=== PATIENT | male | born 1955 | race Caucasian/White ===

== ENCOUNTER 2016-12-09 08:49 | Outpatient (RCR) | payer MEDICARE, MEDICAID ==
--- OUTSIDE RECORDS SUMMARY | 2016-11-25 10:05 | XMS REPORT | Continuity of Care Document ---
Author Author [facility] Organization [facility] Address Unknown Phone Unavailable Care Team Providers Care Newspaper Illustrator Name Role Phone Self, Referral PCP Unavailable Source Comments Some departments are not documenting in the electronic medical record. If you do not see the information that you expected, contact Release of Information in the Health Information Management department at [phone] for further assistance in locating additional records.[facility] Active Allergies and Adverse Reactions No Known Allergies Current Medications Prescription Sig. Disp. Refills Start End Date Status Date divalproex (DEPAKOTE) 500 take 500 mg by mouth 10/04/20 Active mg PO TbEC Daily. 07 risperidone (RISPERDAL) 2 take 2 mg by mouth Twice 10/04/20 Active mg PO Tab Daily. 0.5 mg in the 07 morning and 2 mg at night trazodone (DESYREL) 100 take 200 mg by mouth 10/04/20 Active mg PO Tab Daily. 07 venlafaxine XR (EFFEXOR take 150 mg by mouth 10/04/20 Active XR) 150 mg PO Cp24 Daily. 07 metformin (GLUCOPHAGE) take 500 mg by mouth 10/04/20 Active 500 mg PO Tab Daily. 07 gemfibrozil (LOPID) 600 take 600 mg by mouth 10/04/20 Active mg PO Tab Twice Daily. 07 atorvastatin (LIPITOR) 20 take 20 mg by mouth 10/04/20 Active mg PO Tab Daily. 07 enalapril (VASOTEC) 5 mg take 5 mg by mouth Daily. 10/04/20 Active PO Tab 07 trihexyphenidyl (ARTANE) take 5 mg by mouth RT 10/04/20 Active 5 mg PO Tab Three Times Daily 07 meloxicam(+) (MOBIC) 7.5 take 7.5 mg by mouth 10/04/20 Active mg PO Tab Twice Daily. 07 oxcarbazepine (TRILEPTAL) take 300 mg by mouth 10/04/20 Active 300 mg PO Tab Daily. 07 oxycodone/acetaminophen take 1-2 Tabs by mouth 30 0 10/06/20 Active (PERCOCET) 5/325 mg PO Every 4 Hours as needed 07 Tab for Pain. senna/docusate take 2 Tabs by mouth 60 1 10/06/20 Active (SENOKOT-S) 8.6/50 mg PO Daily. 07 Tab trimethoprim/sulfamethoxa take 1 Tab by mouth Twice 6 0 10/06/20 Active zole (BACTRIM DS) 160/800 Daily. 07 mg PO Tab Active Problems Problem Noted Date Calculus of kidney 10/25/2007 Nephrolithiasis 10/06/2007 Social History Tobacco Use Types Packs/Day Years Used Date Former Smoker 1 Alcohol Use Drinks/Week oz/Week Comments No Last Filed Vital Signs Vital Sign Reading Time Taken Blood Pressure 111/67 10/06/2007 9:56 AM DIRECTOR OF DESIGN Pulse 65 10/06/2007 9:56 AM DIRECTOR OF DESIGN Temperature 36.9 C (98.4 F) 10/06/2007 9:56 AM DIRECTOR OF DESIGN Respiratory Rate - - Height 1.676 m (5' 6") 10/04/2007 7:48 AM DIRECTOR OF DESIGN Weight 82.555 kg (182 lb) 10/04/2007 7:48 AM DIRECTOR OF DESIGN Body Mass Index 29.39 10/04/2007 7:48 AM DIRECTOR OF DESIGN Oxygen Saturation 96% 10/06/2007 9:56 AM DIRECTOR OF DESIGN Plan of Care Health Maintenance Due Date Last Done Comments Hepatitis C Screening 1955 Physical (Comprehensive) 1961 Exam Pertussis Vaccine 1965 Tetanus Vaccine 1971 Colorectal Cancer 2004 Screening Shingles Vaccine 2014 Influenza Vaccine 07/22/2016 Results from Last 3 Months Not on file
[~2016-12-09 08:49] MED LIST: ASP325TEC PO; BUSP30TA2 PO; CARV6.252 PO; CHOL4PAC19 GT; DIVA500T PO; DIVA500T15 PO; DOXE25CA2 PO; GABA-488 PO; LISI-552 PO; LISI10TA2 PO; LORA10TA7 PO; MELO7.5T46 PO; METF1000 PO; NFMET1000 PO; RISP4TAB2 PO; RISP4TAB34 PO; SERT100T8 PO; SILD25TA PO; SIMV40TA PO; SIMV40TA4 PO; TIZA4TAB3 PO; TRAZ-28 PO
== END 2016-12-16 10:01 | disposition home or self-care (01) ==
PROVIDERS: ATTEND Pain Medicine Pain Medicine
DX: M54.2 Cervicalgia (principal)

== ENCOUNTER 2016-12-10 10:58 | Outpatient (CLI) | payer MEDICARE, MEDICAID ==
[~2016-12-10] VITALS: Ht 167.6 cm; Wt 79.8 kg
[2016-12-10] MEDS ORDERED: DEXAMETHASONE PF 10 MG/ML (DECADRON) VIAL ONE (11:01)
--- OUTSIDE RECORDS SUMMARY | 2016-12-10 11:01 | XMS REPORT | Continuity of Care Document ---
Author Author [facility] Organization [facility] Address Unknown Phone Unavailable Care Team Providers Care Insole Reinforcer Name Role Phone Self, Referral PCP Unavailable Source Comments Some departments are not documenting in the electronic medical record. If you do not see the information that you expected, contact Release of Information in the Health Information Management department at [phone] for further assistance in locating additional records.[facility] Active Allergies and Adverse Reactions No [...] Taken Blood Pressure 111/67 10/06/2007 9:56 AM BICYCLE DESIGNER Pulse 65 10/06/2007 9:56 AM BICYCLE DESIGNER Temperature 36.9 C (98.4 F) 10/06/2007 9:56 AM BICYCLE DESIGNER Respiratory Rate - - Height 1.676 m (5' 6") 10/04/2007 7:48 AM BICYCLE DESIGNER Weight 82.555 kg (182 lb) 10/04/2007 7:48 AM BICYCLE DESIGNER Body Mass Index 29.39 10/04/2007 7:48 AM BICYCLE DESIGNER Oxygen Saturation 96% 10/06/2007 9:56 AM BICYCLE DESIGNER Plan of Care Health Maintenance Due Date Last Done Comments Hepatitis C Screening 1955 Physical (Comprehensive) 1961 Exam Pertussis Vaccine 1965 Tetanus Vaccine 1971 Colorectal Cancer 2004 Screening Shingles Vaccine 2014 Influenza Vaccine 07/22/2016 Results from Last 3 Months Not on file
[2016-12-10 11:16] VITALS: BP 171/77
[2016-12-10 11:37] VITALS: BP 179/73
--- NOTE | 2016-12-10 14:01 | Pain Medicine-Procedure ---
Procedure Pre-Op/Post-Op Diagnosis Diagnosis: disc disorder with radiculopathy, cervical Indications for Operation Neck pain Attending Surgeon Abilio Procedure Date of Service: Dec 10, 2016 Procedure: Cervical Epidural Steroid Injection at the C7-T1 Level under Fluoroscopic Guidance Procedure: Pt was identified in the holding area. After risks, benefits, and alternatives were discussed with the patient, informed consent was obtained. An IV was placed by nursing staff prior to procedure. Patient was brought to the fluoroscopy suite and placed prone on the operating table. A time out was performed. Vital signs were monitored throughout the procedure. The patients neck was prepped and draped in the usual sterile fashion. The patients skin was anesthetized using 1% Lidocaine. A 18 gauge tuohy needle was inserted and advanced to the C7-T1 epidural space under fluoroscopic guidance using the loss of resistance technique. The needle position was confirmed in the AP and lateral view. After negative aspiration 2 ml of non-ionic contrast was injected under live fluoroscopy which showed good spread of the contrast in the epidural space at the appropriate level, there was no intravascular or subarachnoid spread. Again, after negative aspiration, 3 ml of preservative free normal saline and 10 mg of dexamethasone was injected. The needle was removed and the patient was transferred to the recovery area in stable condition. And after a brief period of observation was discharged to home in stable condition with no new neurologic deficits. Complications None ANGEL STYLES MD Dec 10, 2016 2:01 pm
== END 2016-12-10 11:41 | disposition home or self-care (01) ==
LOC: CARD 10:58
PROVIDERS: ATTEND Pain Medicine Pain Medicine
DX: M50.13 Cervical disc disorder with radiculopathy, cervicothoracic region (principal); Z79.899 Other long term (current) drug therapy; E11.9 Type 2 diabetes mellitus without complications
CPT/HCPCS: 62321; 82962

== ENCOUNTER → 2017-06-02 | Outpatient (CLI) | payer MEDICARE, MEDICAID | LOC: PREOP 06:51 | PROVIDERS: ATTEND Surgery | DX: Z01.818 Encounter for other preprocedural examination (principal); R19.7 Diarrhea, unspecified ==

== ENCOUNTER → 2017-07-08 | Outpatient (CLI) | payer MEDICARE, MEDICAID | LOC: PREOP 05:53 | PROVIDERS: ATTEND Surgery | DX: Z01.818 Encounter for other preprocedural examination (principal); R19.7 Diarrhea, unspecified ==

== ENCOUNTER 2017-07-12 09:33 | Day surgery (SDC) | payer MEDICARE, MEDICAID ==
[~2017-07-12] VITALS: Ht 167.6 cm; Wt 79.8 kg
[2017-07-12 10:09] VITALS: BP 143/76
[2017-07-12] MEDS ORDERED: LACTATED RINGERS 1,000 ML IV SCH (10:15)
[2017-07-12] MEDS ORDERED: LACTATED RINGERS 1,000 ML IV ONE (10:41)
[2017-07-12] MEDS ORDERED: MIDAZOLAM 2 MG/2 ML (VERSED) VIAL ONE (11:10)
[2017-07-12] MEDS ORDERED: PROPOFOL INJECTION 50 ML IV ONE (11:10)
--- NOTE | 2017-07-12 12:00 | Discharge Inst-Simple/Standard ---
Discharge Inst-Standard Patient Instructions/Follow Up Plan of Care/Instructions/FU: 2 weeks nathan Activity as Tolerated: Yes Discharge Diet: Regular Diet AISHWARYA LE DO Jul 12, 2017 12:00
--- NOTE | 2017-07-12 12:01 | Progress Note-Post Operative ---
Post-Operative Progess Note Surgeon (s)/Potato Chip Frier (s) Surgeon AISHWARYA LE DO Potato Chip Frier: na Pre-Operative Diagnosis chronic diarrhea Post-Operative Diagnosis poor prep Procedure & Operative Findings Date of Procedure 07/12/17 Procedure Performed/Findings colonoscopy c random cold biopsies Anesthesia Type per business management consultant Estimated Blood Loss Estimated blood loss (mL): none Specimens/Packing Specimens Removed random colon AISHWARYA LE DO Jul 12, 2017 12:01
--- OUTSIDE RECORDS SUMMARY | 2017-07-12 12:18 | XMS REPORT ---
Author ROSA M Jimenez [facility] [employer]Clinical[employer] Address Unknown Phone Unavailable Care Team Providers Care Typewriter Aligner Name Role Phone ROSA M PAREKH Unavailable Allergies No Known Allergies Problems Problem Type Condition Code Onset Dates Condition Status Problem Insomnia 780.52 Active Assessment Neck pain M54.2 Active Problem HTN (hypertension) I10 Active Problem Hypercholesterolemia E78.0 Active Problem Type 2 diabetes mellitus with other specified complication E11.69 Active Problem Pre-ulcerative calluses L84 Active Problem CAD (coronary artery disease) 414.00 Active Problem Anxiety F41.9 Active Problem Depression F32.9 Active Medications No Known Medications Results No Known Results Summary Purpose eClinicalWorks Submission
--- OUTSIDE RECORDS SUMMARY | 2017-07-12 12:18 | XMS REPORT | Clinical Summary ---
Author Author [facility] Organization [facility] Address Unknown Phone Unavailable Care Team Providers Care Stone Sawyer Name Role Phone PCP Unavailable Source Comments Some departments are not documenting in the electronic medical record. If you do not see the information that you expected, contact Release of Information in the Health Information Management department at [phone] for further assistance in locating additional records.[facility] Allergies No Known Allergies Current Medications Prescription Sig. [...] 1 Alcohol Use Drinks/Week oz/Week Comments No Sex Assigned at Date Recorded Not on file Last Filed Vital Signs Vital Sign Reading Time Taken Blood Pressure 111/67 10/06/2007 9:56 AM TECHNICAL TRANSLATOR Pulse 65 10/06/2007 9:56 AM TECHNICAL TRANSLATOR Temperature 36.9 C (98.4 F) 10/06/2007 9:56 AM TECHNICAL TRANSLATOR Respiratory Rate - - Oxygen Saturation 96% 10/06/2007 9:56 AM TECHNICAL TRANSLATOR Inhaled Oxygen - - Concentration Weight 82.6 kg (182 lb) 10/04/2007 7:48 AM TECHNICAL TRANSLATOR Height 167.6 cm (5' 6") 10/04/2007 7:48 AM TECHNICAL TRANSLATOR Body Mass Index 29.38 10/04/2007 7:48 AM TECHNICAL TRANSLATOR Plan of Treatment Health Maintenance Due Date Last Done Comments HEPATITIS C SCREENING 1954 PHYSICAL (COMPREHENSIVE) 1961 EXAM PERTUSSIS VACCINE 1965 TETANUS VACCINE 1971 COLORECTAL CANCER 2004 SCREENING SHINGLES VACCINE 2014 INFLUENZA VACCINE 07/22/2017 Results Not on filefrom Last 3 Months
--- OUTSIDE RECORDS SUMMARY | 2017-07-12 12:18 | XMS REPORT ---
Author NILAM Mohamud [facility] [employer] Address Unknown Phone Unavailable Care Team Providers Care Investigations Manager Name Role Phone NILAM MCDONALD CP Unavailable Allergies No Known Allergies Problems Problem Type Condition Code Onset Dates Condition Status Problem Insomnia 780.52 Active Problem HTN (hypertension) I10 Active Problem Hypercholesterolemia E78.0 Active Problem Type 2 diabetes mellitus with other specified complication E11.69 Active Problem Pre-ulcerative calluses L84 Active Problem CAD (coronary artery disease) 414.00 Active Problem Anxiety F41.9 Active Problem Depression F32.9 Active Medications No Known Medications Results No Known Results Summary Purpose eClinicalWorks Submission
--- OUTSIDE RECORDS SUMMARY | 2017-07-12 12:18 | XMS REPORT ---
Author ROSA M Jimenez [facility] eClinical[employer] Address Unknown Phone Unavailable Care Team Providers Care Brass Molder Name Role Phone ROSA M PAREKH CP Unavailable Allergies No Known Allergies Problems [...] Depression F32.9 Active Medications No Known Medications Procedures Procedure Coding System Code Date THERAPEUTIC EXERCISES CPT-4 31836 February 18, 2016 PT EVALUATION CPT-4 60330 February 18, 2016 Results No Known Results Summary Purpose eClinicalWorks Submission
--- OUTSIDE RECORDS SUMMARY | 2017-07-12 12:18 | XMS REPORT ---
Author Author NILAM MCDONALD Organization [employer] Address Unknown Phone Unavailable Care Team Providers Care Gun Stock Checker Name Role Phone NILAM MCDONALD CP Unavailable [...] F41.9 Active Problem Depression F32.9 Active Medications Medication Code System Code Instructions Start Date End Date Status Dosage Lisinopril [facility] [address]-78 20 mg Orally Once a day TAKE 1 TABLET BY MOUTH DAILY Results No Known Results Summary Purpose eClinicalWorks Submission
--- OUTSIDE RECORDS SUMMARY | 2017-07-12 12:18 | XMS REPORT ---
Author NILAM Mohamud [facility] eClinical[employer] Address Unknown Phone Unavailable Care Team Providers Care Personal Financial Representative Name Role Phone NILAM MCDONALD CP Unavailable [...] Start Date End Date Status Dosage Lisinopril [facility] 30689028459 20 MG TAKE 1 TABLET BY MOUTH DAILY Results No Known Results Summary Purpose eClinicalWorks Submission
--- OUTSIDE RECORDS SUMMARY | 2017-07-12 12:18 | XMS REPORT ---
Author NILAM Mohamud Organization [employer] Address Unknown Phone Unavailable Care Team Providers Care Pulp Mill Team Leader Name Role Phone NILAM MCDONALD CP Unavailable [...] Instructions Start Date End Date Status Dosage Baclofen [facility] [address]-48 10 MG Orally Three times a day prn Dec 17, 2015 Jan 16, 2016 1 tablet with food or milk Results No Known Results Summary Purpose eClinicalWorks Submission
--- OUTSIDE RECORDS SUMMARY | 2017-07-12 12:18 | XMS REPORT ---
Author Author NIKITA GROVER [facility] eClinicalWorks Address Unknown Phone Unavailable Care Team Providers Care Asphalt Paving Machine Operator Name Role Phone NIKITA GROVER CP Unavailable Allergies, Adverse Reactions, Alerts Substance Reaction Event Type N.K.D.A. Info Not Available Non Drug Allergy Problems Problem Type Condition Code Onset Dates Condition Status Problem Dermatophytosis of nail 110.1 Active Problem Malignant neoplasm of male genital organ, site unspecified 187.9 Active Problem Corns and callosities 700 Active Problem Insomnia 780.52 Active Assessment Allergic rhinitis, seasonal J30.2 Active Problem Diarrhea 787.91 Active Problem CAD (coronary artery disease) 414.00 Active Problem Diabetes mellitus without mention of complication, type II or unspecified type, not stated as uncontrolled 250.00 Active Problem Nondependent tobacco use disorder 305.1 Active Problem Abnormal involuntary movements 781.0 Active Problem Essential hypertension, benign 401.1 Active Problem Pain in joint, ankle and foot 719.47 Active Problem 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 Problem Encounter for long-term (current) use of other medications V58.69 Active Problem Unspecified follow-up examination V67.9 Active Problem Unspecified essential hypertension 401.9 Active Problem Secondary localized osteoarthrosis, 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 Active Problem Other specified cardiac dysrhythmias 427.89 Active Problem Neoplasm of unspecified nature of other genitourinary organs 239.5 Active Problem Other dyspnea and respiratory abnormalities 786.09 Active Problem Unspecified hereditary and idiopathic peripheral neuropathy 356.9 Active Medications Medication Code System Code Instructions Start Date End Date Status Dosage Blood Glucose Monitor NDC 0 Dx 250.00 Aug 19, 2015 not defined Aspirin [facility] [address]-85 325 MG Orally Once a day Sep 11, 2014 Nov 06, 2015 take 1 tablet (325 mg) by oral route once daily buspirone NDC 0 30 mg Sep 11, 2014 take 1 tablet (30 mg) by oral route 2 times per day Trazodone HCl [facility] [address]-11 50 MG Orally Once a day at hs Aug 08, 2015 1 tablet at bedtime as needed Depakote [facility] [address]-60 500 MG Orally 3 times a day Sep 11, 2014 1 tablet Zocor [facility] [address]-50 40 MG Orally Once a day Aug 19, 2015 1 tablet in the evening Coreg [facility] [address]-58 6.25 MG no more refills given-must have appt. January 20, 2015 take 1 tablet (6.25 mg) by oral route 2 times per day with food Zocor [facility] [address]-11 40 MG must keep appt for additional refills Nov take 1 tablet (40 mg) by oral route once daily in the evening Ibuprofen [facility] [address]-12 400 mg January 21, 2015 take 1 tablet ( 400 mg) by oral route every 4 hours as needed for pain Blood Glucose Test Strip [facility] 0 2 times per day Aug 19, 2015 not defined Risperdal [facility] [address]-31 4 MG Orally Once a day January 30, 2013 take 1 tablet by Oral route 1 time per day Lomotil [facility] [address]-27 2.5-0.025 mg Oct 23, 2014 2 tablet by Oral route 3 times per day PRN Glucophage [facility] [address]-78 1,000 mg must keep appt for futher refills January 20, 2015 take 1 tablet (1,000 mg) by oral route 2 times per day with morning and evening meals Lisinopril [facility] [address]-04 20 MG Orally Once a day Aug 19, 2015 1 tablet Carvedilol [facility] [address]-14 6.25 MG Orally twice Aug 19, 2015 1 tablet Claritin [facility] [address]-48 10 MG Orally Once a day Sep 17, 2015 1 tablet Procedures Procedure Coding System Code Date [facility] VISIT ESTABLISHED PATIENT CPT-4 G0467 Sep 17, 2015 Office Visit, Est Pt., Level 3 CPT-4 18197 Sep 17, 2015 AUDIOMETRY-SCREEN CPT-4 61781 Sep 17, 2015 Vital Signs Date/Time: Sep 17, 2015 Temperature 97.2 F Weight 175.4 lbs Height 66 in Hearing Right ear: 1000:F, 2000:F, 4000:F, 6000:F, Left ear: 1000:F, 2000:F, 4000:F, 6000:F P / L Blood Pressure Diastolic 70 mmHg Blood Pressure Systolic 128 mmHg Cardiac Monitoring Heart Rate 74 bpm BMI 28.31 Index Results No Known Results Summary Purpose eClinicalWorks Submission
--- OUTSIDE RECORDS SUMMARY | 2017-07-12 12:18 | XMS REPORT ---
Author NILAM Mohamud [facility] eClinicalWorks Address Unknown Phone Unavailable Care Team Providers Care Supervisor Machining Name Role Phone NILAM MCDONALD CP Unavailable Allergies, Adverse Reactions, Alerts Substance Reaction Event Type N.K.D.A. Info Not Available Non Drug Allergy Problems Problem Type Condition Code Onset Dates Condition Status Assessment Pre-ulcerative calluses L84 Active Problem Insomnia 780.52 Active Assessment Type 2 diabetes mellitus with other specified complication E11.69 Active Problem HTN (hypertension) I10 Active Problem Hypercholesterolemia E78.0 Active Problem Type 2 diabetes mellitus with other specified complication E11.69 Active Problem Pre-ulcerative calluses L84 Active Problem CAD (coronary artery disease) 414.00 Active Problem Anxiety F41.9 Active Problem Depression F32.9 Active Assessment Depression F32.9 Active Assessment Anxiety F41.9 Active Assessment Osteoarthritis M19.90 Active Assessment Hypercholesterolemia E78.0 Active Assessment Environmental allergies Z91.09 Active Assessment HTN (hypertension) I10 Active Medications Medication Code System Code Instructions Start Date End Date Status Dosage Zocor [facility] 92623099178 40 MG Orally Once a day 1 tablet in the evening Lomotil [facility] [address]-44 2.5-0.025 mg Oct 23, 2014 2 tablet by Oral route 3 times per day PRN Carvedilol [facility] 13396358697 6.25 MG TAKE ONE TABLET BY MOUTH TWICE DAILY Depakote [facility] [address]-54 500 MG Orally 3 times a day Sep 11, 2014 1 tablet Cyclobenzaprine HCl [facility] [address]-51 10 MG Orally 2 times a day Nov 25, 2015 1 tablet Zoloft NDC 0 100 mg Oral Once a day 1 tab Ibuprofen [facility] [address]-87 400 mg January 21, 2015 take 1 tablet ( 400 mg) by oral route every 4 hours as needed for pain buspirone [place] 0 30 mg Sep 11, 2014 take 1 tablet (30 mg) by oral route 2 times per day Risperdal [facility] [address]-14 4 MG Orally Once a day January 30, 2013 take 1 tablet by Oral route 1 time per day Lisinopril [facility] 20433842102 20 MG Orally Once a day 1 tablet Glucophage [facility] 07043072526 1000 MG Orally Twice a day 1 tablet with meals Claritin [facility] [address]-50 10 MG Orally Once a day Sep 17, 2015 1 tablet Aspirin [facility] 37128139732 325 MG take 1 tablet (325 mg) by oral route once daily Once a day Orally 30 days Procedures Procedure Coding System Code Date [facility] VISIT ESTABLISHED PATIENT CPT-4 G0467 Nov 25, 2015 Office Visit, Est Pt., Level 4 CPT-4 52758 Nov 25, 2015 GLYCATED HEMOGLOBIN TEST CPT-4 60028 Nov 25, 2015 Vital Signs Date/Time: Nov 25, 2015 Temperature 98.2 F Weight 175.5 lbs Height 66 in BMI 28.32 Index Blood Pressure Diastolic 80 mmHg Blood Pressure Systolic 140 mmHg Cardiac Monitoring Heart Rate 78 bpm Results Name Result Date Reference Range Unit Abnormality Flag A1C (IN HOUSE) ----A1C IN HOUSE 5.6 [id number] 4.30 - 5.6 % ----Previous A1c 5.9 [id number] ----Lot # [id number] ----Exp date [id number] Summary Purpose eClinicalWorks Submission
--- OUTSIDE RECORDS SUMMARY | 2017-07-12 12:19 | XMS REPORT ---
Author Author NILAM MCDONALD [facility] eClinicalWorks Address Unknown Phone Unavailable Care Team Providers Care Cloth Napping Supervisor Name Role Phone NILAM MCDONALD CP Unavailable [...]
--- OUTSIDE RECORDS SUMMARY | 2017-07-12 12:19 | XMS REPORT ---
Author ROSA M Jimenez [facility] eClinicalWorks Address Unknown Phone Unavailable Care Team Providers Care Solar Installer Pv Name Role Phone ROSA M PAREKH Unavailable [...] Coding System Code Date THERAPEUTIC EXERCISES CPT-4 36405 March 08, 2016 Results No Known Results Summary Purpose eClinicalWorks Submission
--- OUTSIDE RECORDS SUMMARY | 2017-07-12 12:19 | XMS REPORT ---
Author NILAM Mohamud [facility] eClinicalWorks Address Unknown Phone Unavailable Care Team Providers Care Night Clerk Auditor Name Role Phone NILAM MCDONALD CP Unavailable [...]
--- OUTSIDE RECORDS SUMMARY | 2017-07-12 12:19 | XMS REPORT ---
Author Author NILAM MCDONALD Organization [facility] Address [address] [place] [address] Care Team Providers Care Assistant Commissioner Name Role Phone NILAM MCDONALD Unavailable PROBLEMS Type Condition ICD9-CM Code [id number] Code Onset Dates Condition Status SNOMED Code Problem Anxiety F41.9 Active 59204985 Problem Type 2 diabetes mellitus with other specified complication E11.69 Active 9637594 Problem HTN (hypertension) I10 Active 26337741 Problem Pure hypercholesterolemia E78.00 Active 231147465 Problem Pre-ulcerative calluses L84 Active 23212541 Problem Depression F32.9 Active 81786153 Problem Parkinsons disease G20 Active 03587505 Problem Cervical stenosis of spine M48.02 Active 95566273 Problem Cervicalgia M54.2 Active 576719356769597 Problem Other chronic pain G89.29 Active 96884294 Problem Atherosclerotic heart disease of [place] coronary artery without angina pectoris I25.10 Active 409341769 Problem Coronary atherosclerosis due to lipid rich plaque I25.83 Active 264168867360950 ALLERGIES Unknown Allergies SOCIAL HISTORY No smoking Hx information available PLAN OF CARE VITAL SIGNS MEDICATIONS Unknown Medications RESULTS No Results PROCEDURES No Known procedures IMMUNIZATIONS No Known Immunizations
--- OUTSIDE RECORDS SUMMARY | 2017-07-12 12:19 | XMS REPORT ---
Author Author NILAM MCDONALD [facility] Address [address] [place] [address] Care Team Providers Care Manager Talent Name Role Phone NILAM MCDONALD Unavailable PROBLEMS Type Condition ICD9-CM Code EAN83-NC Code Onset Dates Condition Status SNOMED Code Assessment Visit for TB skin test Z11.1 Jul, Active 329453915 Problem CAD (coronary artery disease) 414.00 Active 54387877 Problem Insomnia 780.52 Active 564064669 Assessment Screening for tuberculosis Z11.1 Jul, Active 636331215 Problem Type 2 diabetes mellitus with other specified complication E11.69 Active 8299974 Problem HTN (hypertension) I10 Active 24022838 Problem Depression F32.9 Active 43651046 Problem Pre-ulcerative calluses L84 Active 18585992 Problem Hypercholesterolemia E78.0 Active 64792131 Problem Anxiety F41.9 Active 84230397 ALLERGIES Unknown Allergies SOCIAL HISTORY No smoking Hx information available PLAN OF CARE VITAL SIGNS MEDICATIONS Unknown Medications RESULTS No Results PROCEDURES Procedure Date Ordered Related Diagnosis Body Site TB INTRADERMAL 2016-08-16 N/A TB INTRADERMAL TEST Aug 16, 2016 IMMUNIZATIONS No Known Immunizations
--- OUTSIDE RECORDS SUMMARY | 2017-07-12 12:19 | XMS REPORT ---
Author Author NILAM MCDONALD Organization [employer] Address Unknown Phone Unavailable Care Team Providers Care Harbor Engineer Name Role Phone NILAM MCDONALD CP Unavailable Allergies No Known Allergies Problems Problem Type Condition Code Onset Dates Condition Status Problem Dermatophytosis of nail 110.1 Active Problem Malignant neoplasm of male genital organ, site unspecified 187.9 Active Problem Corns and callosities 700 Active Problem Insomnia 780.52 Active Problem Diarrhea 787.91 Active Problem CAD [...] and idiopathic peripheral neuropathy 356.9 Active Medications No Known Medications Results No Known Results Summary Purpose [employer] Submission
--- OUTSIDE RECORDS SUMMARY | 2017-07-12 12:19 | XMS REPORT ---
Author Author RODOLFO SAHNI [facility] [employer] Address Unknown Phone Unavailable Care Team Providers Care Patient Services Clerk Name Role Phone RODOLFO SAHNI CP Unavailable Allergies No Known Allergies Problems Problem Type Condition ICD-9 Code Onset Dates Condition Status Problem Neoplasm of unspecified nature of other genitourinary organs 239.5 Active Problem Dermatophytosis of nail 110.1 Active Problem Unspecified hereditary and idiopathic peripheral neuropathy 356.9 Active Problem Abnormal involuntary movements 781.0 Active Problem Essential hypertension, benign 401.1 Active Problem Diarrhea 787.91 Active Problem Malignant neoplasm of male genital organ, site unspecified 187.9 Active Problem Corns and callosities 700 Active Problem Diabetes mellitus without mention of complication, type II or unspecified type, not stated as uncontrolled 250.00 Active Problem Nondependent tobacco use disorder 305.1 Active Problem Encounter for long-term (current) use of other medications V58.69 Active Problem Unspecified follow-up examination V67.9 Active Problem Other specified cardiac dysrhythmias 427.89 Active Problem Other dyspnea and respiratory abnormalities 786.09 Active Problem Pain in joint, ankle and foot 719.47 Active Problem Unspecified essential hypertension 401.9 Active Problem 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 Problem Secondary localized osteoarthrosis, 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 Active Medications Medication Code System Code Instructions Start Date End Date Status Dosage Lomotil [facility] [address]-63 2.5-0.025 mg Oct 23, 2014 2 tablet by Oral route 3 times per day PRN doxepin [facility] 0 25 mg Sep 11, 2014 take 2 capsules (50 mg) by oral route once daily at bedtime Viagra [facility] [address]-28 25 mg Oct 15, 2014 1 tablet by Oral route 1 time per day Zocor [facility] [address]-20 40 MG must keep appt for additional refills Nov take 1 tablet (40 mg) by oral route once daily in the evening Risperdal [facility] [address]-03 4 mg January 30, 2013 take 1 tablet by Oral route 1 time per day Coreg [facility] [address]-00 6.25 MG no more refills given-must have appt. January 20, 2015 take 1 tablet (6.25 mg) by oral route 2 times per day with food Aspirin [facility] [address]-75 325 mg Sep 11, 2014 take 1 tablet (325 mg) by oral route once daily Ibuprofen [facility] [address]-80 400 mg January 21, 2015 take 1 tablet ( 400 mg) by oral route every 4 hours as needed for pain Glucophage [facility] [address]-62 1,000 mg must keep appt for futher refills January 20, 2015 take 1 tablet (1,000 mg) by oral route 2 times per day with morning and evening meals Lisinopril [facility] [address]-51 20 MG must keep appt for additional refills. Sep 16, 2014 take 1 tablet (20 mg) by oral route once daily Depakote [facility] [address]-69 500 mg Sep 11, 2014 take by Oral route 1 tablet in the morning and 2 tablets at bedtime. buspirone [facility] 0 30 mg Sep 11, 2014 take 1 tablet (30 mg) by oral route 2 times per day Results No Known Results Summary Purpose [employer]Works Submission
--- OUTSIDE RECORDS SUMMARY | 2017-07-12 12:20 | XMS REPORT ---
Author Author MARS TEAGUE Organization [employer] Address Unknown Phone Unavailable Care Team Providers Care Court Manager Name Role Phone MARS TEAGUE CP Unavailable Allergies No Known Allergies Problems [...] osteoarthrosis, 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 Active Medications No Known Medications Results No Known Results Summary Purpose [employer] Submission
[2017-07-12 12:30] VITALS: BP 167/86
[2017-07-12 13:00] VITALS: BP 159/84
[2017-07-12 13:18] VITALS: BP 159/84
--- NOTE | 2017-07-12 13:35 | OPERATIVE REPORT ---
DATE OF SERVICE: PREOPERATIVE DIAGNOSIS: Chronic diarrhea. POSTOPERATIVE DIAGNOSIS: Poor bowel prep. PROCEDURE: Colonoscopy with random cold biopsies. SURGEON: Aishwarya Henry DO ANESTHESIA: Per WASH OIL COOLER OPERATOR. ESTIMATED BLOOD LOSS: None. COMPLICATIONS: None. INDICATIONS: The patient is a 62-year-old male with chronic diarrhea. He understands risks and benefits of procedure and wished to proceed with procedure. Consent was signed in the chart. PROCEDURE: The patient was taken to the endoscopy suite, placed in left lateral recumbent position. Timeout was performed. Digital rectal exam was performed with some external hemorrhoids present. No palpable polyps, mass or ulcerations. The scope was inserted in the rectum and advanced all the way to the cecum. Poor bowel prep, but lots of irrigation and suction was used in order to get to the cecum. The mucosal surfaces were difficult to visualize. There were no large polyps or masses visualized within the cecum, ascending, transverse and descending and sigmoid colon. As the scope was continuing to be retracted back, a few random cold biopsies were obtained. Once in the rectum, multiple insertions and retractions were made not visualizing any large polyps or masses. RECOMMENDATIONS: The patient will follow up on the biopsies in 2 weeks. If patient is not within the screening guidelines previously when compared to with last colonoscopy, I would repeat a colonoscopy in one year due to the poor bowel prep. Otherwise would keep at the screening guidelines. Job ID: [id number] DocumentID: [id number] Dictated Date: 07/12/2017 13:05:19 Manufacturing Cost Estimator Date: 07/12/2017 13:34:51 Dictated By: AISHWARYA HENRY DO
== END 2017-07-12 13:18 | disposition home or self-care (01) ==
LOC: ENDO 09:33
PROVIDERS: ATTEND Surgery
DX: K52.9 Noninfective gastroenteritis and colitis, unspecified (principal); I10 Essential (primary) hypertension; E11.9 Type 2 diabetes mellitus without complications; F32.9 Major depressive disorder, single episode, unspecified; F17.210 Nicotine dependence, cigarettes, uncomplicated; Z79.899 Other long term (current) drug therapy
CPT/HCPCS: 82962; 88305

== ENCOUNTER 2017-09-21 11:06 | Emergency (ER) | payer MEDICARE, MEDICAID ==
[~2017-09-21] VITALS: Ht 167.6 cm; Wt 78.0 kg
--- OUTSIDE RECORDS SUMMARY | 2017-09-21 11:43 | XMS REPORT ---
Author Author NILAM MCDONALD Organization [facility] Address [address] [place] [address] Care Team Providers Care Indian Blanket Weaver Name Role Phone NILAM MCDONALD Unavailable PROBLEMS Type Condition ICD9-CM Code TOS01-GN Code Onset Dates Condition Status SNOMED Code Problem HTN (hypertension) I10 Active 89337869 Problem Anxiety F41.9 Active 08898125 Problem Depression F32.9 Active 17463038 Problem Pure hypercholesterolemia E78.00 Active 807303969 Problem Type 2 diabetes mellitus with other specified complication E11.69 Active 3105251 Problem Pre-ulcerative calluses L84 Active 41560725 Problem Parkinsons disease G20 Active 15965154 Problem Cervical stenosis of spine M48.02 Active 11849277 Problem Coronary atherosclerosis due to lipid rich plaque I25.83 Active 301624907386835 Problem Cervicalgia M54.2 Active 517974267445958 Problem Other chronic pain G89.29 Active 30458369 Problem Atherosclerotic heart disease of [place] coronary artery without angina pectoris I25.10 Active 517450720 ALLERGIES No Known Allergies SOCIAL HISTORY Never Assessed PLAN OF CARE Activity Details Follow Up 3 Months, prn Reason: VITAL SIGNS Height 66 in 2017-01-20 Weight 178.6 lbs 2017-01-20 Temperature 98.4 degrees Fahrenheit 2017-01-20 Heart Rate 78 bpm 2017-01-20 Respiratory Rate 18 2017-01-20 BMI 28.82 kg/m2 2017-01-20 Blood pressure systolic 130 mmHg 2017-01-20 Blood pressure diastolic 78 mmHg 2017-01-20 MEDICATIONS Medication Instructions Dosage Frequency Start Date End Date Duration Status Metformin HCl 1000 MG TAKE 1 TABLET BY MOUTH TWICE DAILY 12h Active buspirone 30 mg by oral route 2 times a day take 1 tablet (30 mg) by oral route 2 times per day 12h 22 Aug, 2014 Active Zoloft 100 mg Oral Once a day 1 tab 24h Active Zocor 40 MG 1 tablet in the evening Once a day Orally 30 Active Tizanidine HCl 4 MG Orally Three times a day 1 tablet as needed 8h Jan, Active Simvastatin 40 MG TAKE 1 TABLET BY MOUTH EVERY EVENING 30 Active Claritin 10 MG 1 tablet Once a day Orally Active Ultram 50 mg Orally 3 times a day 1 tablet as needed 8h Nov, Active Carvedilol 6.25 MG TAKE 1 TABLET BY MOUTH TWICE DAILY Active Mobic 7.5 MG Orally twice a day 1 tablet 12h Active Gabapentin 300 MG Orally 3 times a day 1 capsule 8h Active Depakote 500 MG Orally 3 times a day 1 tablet 8h Aug, Active Risperdal 4 MG Orally Once a day take 1 tablet by Oral route 1 time per day 24h Jan, Active Zanaflex 4 MG Orally Three times a day 1 tablet as needed 8h Active Lomotil 2.5-0.025 MG 2 tablet by Oral route 3 times per day PRN Oct Active Lisinopril 20 mg Orally Once a day TAKE 1 TABLET BY MOUTH DAILY 24h Active RESULTS No Results PROCEDURES Procedure Date Ordered Result Body Site [facility] VISIT ESTABLISHED PATIENT January 20, 2017 IMMUNIZATIONS No Known Immunizations MEDICAL (GENERAL) HISTORY Type Description Date Medical History testicular cancer Medical History type II diabetes Medical History Arthritis Medical History hypertension Medical History depression Surgical History cholecystectomy 1999 Surgical History orchiectomy (R) r/t cancer Surgical History full mouth extraction Surgical History appendectomy 1968 Surgical History carpal tunnel 2017 Hospitalization History surgery
--- OUTSIDE RECORDS SUMMARY | 2017-09-21 11:43 | XMS REPORT | Clinical Summary ---
Author Author [facility] Organization [facility] Address Unknown Phone Unavailable Care Team Providers Care Kitchen Lead Name Role Phone PCP Unavailable Source Comments Some departments are not documenting in the electronic medical record. If you do not see the information that you expected, contact Release of Information in the Health Information Management department at [phone] for further assistance in locating additional records.[facility] Allergies No Known Allergies Current Medications Prescription [...] Taken Blood Pressure 111/67 10/06/2007 9:56 AM ASSOCIATE BROKER Pulse 65 10/06/2007 9:56 AM ASSOCIATE BROKER Temperature 36.9 C (98.4 F) 10/06/2007 9:56 AM ASSOCIATE BROKER Respiratory Rate - - Oxygen Saturation 96% 10/06/2007 9:56 AM ASSOCIATE BROKER Inhaled Oxygen - - Concentration Weight 82.6 kg (182 lb) 10/04/2007 7:48 AM ASSOCIATE BROKER Height 167.6 cm (5' 6") 10/04/2007 7:48 AM ASSOCIATE BROKER Body Mass Index 29.38 10/04/2007 7:48 AM ASSOCIATE BROKER Plan of Treatment Health Maintenance Due Date Last Done Comments HEPATITIS C SCREENING 1954 PHYSICAL (COMPREHENSIVE) 1961 EXAM PERTUSSIS VACCINE 1965 TETANUS VACCINE 1971 COLORECTAL CANCER 2004 SCREENING SHINGLES VACCINE 2014 INFLUENZA VACCINE 06/21/2017 Results Not on filefrom Last 3 Months
--- OUTSIDE RECORDS SUMMARY | 2017-09-21 11:48 | XMS REPORT ---
Author Author NILAM MCDONALD Organization [facility] Address [address] [place] [address] Care Team Providers Care Shale Planer Operator Name Role Phone NILAM MCDONALD Unavailable PROBLEMS Type Condition ICD9-CM Code NDH00-HF Code Onset Dates Condition Status SNOMED Code Problem HTN (hypertension) I10 Active 49268002 Problem Anxiety F41.9 Active 43063064 Problem Depression F32.9 Active 89987344 Problem Pure hypercholesterolemia E78.00 Active 494855227 Problem Type 2 diabetes mellitus with other specified complication E11.69 Active 1895790 Problem Pre-ulcerative calluses L84 Active 56541949 Problem Parkinsons disease G20 Active 18695237 Problem Cervical stenosis of spine M48.02 Active 58722181 Problem Coronary atherosclerosis due to lipid rich plaque I25.83 Active 622627802022525 Problem Cervicalgia M54.2 Active 975261669437041 Problem Other chronic pain G89.29 Active 12409091 Problem Atherosclerotic heart disease of [place] coronary artery without angina pectoris I25.10 Active 934410476 ALLERGIES Unknown Allergies SOCIAL HISTORY No smoking Hx information available PLAN OF CARE VITAL SIGNS MEDICATIONS Medication Instructions Dosage Frequency Start Date End Date Duration Status Lisinopril 20 mg Orally Once a day TAKE 1 TABLET BY MOUTH DAILY 24h Active RESULTS No Results PROCEDURES No Known procedures IMMUNIZATIONS No Known Immunizations
--- OUTSIDE RECORDS SUMMARY | 2017-09-21 11:48 | XMS REPORT ---
Author Author NILAM MCDONALD Organization [facility] Address [address] [place] [address] Care Team Providers Care Contamination Consultant Name Role Phone NILAM MCDONALD Unavailable PROBLEMS Type Condition ICD9-CM Code EFX74-SQ Code Onset Dates Condition Status SNOMED Code Problem HTN (hypertension) I10 Active 20191340 Problem Anxiety F41.9 Active 16811124 Problem Depression F32.9 Active 09922244 Problem Pure hypercholesterolemia E78.00 Active 265628471 Problem Type 2 diabetes mellitus with other specified complication E11.69 Active 5419153 Problem Pre-ulcerative calluses L84 Active 75735368 Problem Parkinsons disease G20 Active 05157289 Problem Cervical stenosis of spine M48.02 Active 60848561 Problem Coronary atherosclerosis due to lipid rich plaque I25.83 Active 967559179105227 Problem Cervicalgia M54.2 Active 924837554659301 Problem Other chronic pain G89.29 Active 15341513 Problem Atherosclerotic heart disease of [place] coronary artery without angina pectoris I25.10 Active 547600588 ALLERGIES No Information SOCIAL HISTORY Never Assessed PLAN OF CARE VITAL SIGNS MEDICATIONS Unknown Medications RESULTS No Results PROCEDURES No Known procedures IMMUNIZATIONS No Known Immunizations MEDICAL (GENERAL) HISTORY Type Description Date Medical History testicular cancer Medical History type II diabetes Medical History Arthritis Medical History hypertension Medical History depression Surgical History cholecystectomy 1999 Surgical History orchiectomy (R) r/t cancer Surgical History full mouth extraction Surgical History appendectomy 1969 Surgical History carpal tunnel 2017 Hospitalization History surgery
--- OUTSIDE RECORDS SUMMARY | 2017-09-21 11:48 | XMS REPORT ---
Author Author NILAM MCDONALD Organization [facility] Address [address] [place] [address] Care Team Providers Care Personal Fitness Trainer Name Role Phone HARRY NILAM Unavailable PROBLEMS Type Condition ICD9-CM Code PBV09-SA Code Onset Dates Condition Status SNOMED Code Problem HTN (hypertension) I10 Active 12597136 Problem Anxiety F41.9 Active 71074833 Problem Depression F32.9 Active 51780658 Problem Pure hypercholesterolemia E78.00 Active 439171310 Problem Type 2 diabetes mellitus with other specified complication E11.69 Active 6975392 Problem Pre-ulcerative calluses L84 Active 27497096 Problem Parkinsons disease G20 Active 60580552 Problem Cervical stenosis of spine M48.02 Active 06946805 Problem Coronary atherosclerosis due to lipid rich plaque I25.83 Active 138351596063889 Problem Cervicalgia M54.2 Active 061196725051186 Problem Other chronic pain G89.29 Active 63155718 Problem Atherosclerotic heart disease of [place] coronary artery without angina pectoris I25.10 Active 088624681 ALLERGIES Substance Reaction Event Type Date Status N.K.D.A. Unknown Non Drug Allergy Nov, Unknown SOCIAL HISTORY No smoking Hx information available PLAN OF CARE Activity Details Follow Up 3 Months Reason:diabetes VITAL SIGNS Height 66 in 2016-11-23 Weight 176.0 lbs 2016-11-23 Temperature 97.8 degrees Fahrenheit 2016-11-23 Heart Rate 60 bpm 2016-11-23 Respiratory Rate 18 2016-11-23 BMI 28.40 kg/m2 2016-11-23 Blood pressure systolic 126 mmHg 2016-11-23 Blood pressure diastolic 80 mmHg 2016-11-23 MEDICATIONS Medication Instructions Dosage Frequency Start Date End Date Duration Status Lomotil 2.5-0.025 MG 2 tablet by Oral route 3 times per day PRN Oct Active Lisinopril 20 mg Orally Once a day TAKE 1 TABLET BY MOUTH DAILY 24h 90 days Active Baclofen 10 mg Orally Three times a day 1 tablet with food or milk 8h Feb, 30 day(s) Active Ultram 50 mg Orally 3 times a day 1 tablet as needed 8h Nov, Active Metformin HCl 1000 MG TAKE 1 TABLET BY MOUTH TWICE DAILY 12h 90 days Active Depakote 500 MG Orally 3 times a day 1 tablet 8h 22 Aug, 2014 90 days Active Simvastatin 40 mg TAKE 1 TABLET BY MOUTH EVERY EVENING 90 days Active Zoloft 100 mg Oral Once a day 1 tab 24h Active Zocor 40 MG 1 tablet in the evening Once a day Orally 30 30 Active Risperdal 4 MG Orally Once a day take 1 tablet by Oral route 1 time per day 24h 12 Jan, 2013 Active Carvedilol 6.25 MG TAKE 1 TABLET BY MOUTH TWICE DAILY 90 Active Claritin 10 MG 1 tablet Once a day Orally Active buspirone 30 mg by oral route 2 times a day take 1 tablet (30 mg) by oral route 2 times per day 12h Aug, 90 days Active RESULTS Name Result Date Reference Range A1C (IN HOUSE) 2016-11-23 A1C IN HOUSE 6.1 4.3 - 5.6 % Previous A1c 5.6 Lot [id number] Exp date 08/2018 CBC 2016-11-23 WBC 13.2 3.4-10.8 RBC 4.98 4.14-5.80 Hemoglobin 14.6 12.6-17.7 Hematocrit 43.7 37.5-51.0 MCV 88 79-97 MCH 29.3 26.6-33.0 MCHC 33.4 31.5-35.7 RDW 14.9 12.3-15.4 Platelets 281 150-379 Neutrophils 62 Lymphs 23 Monocytes 12 Eos 3 Basos 0 Immature Cells Neutrophils (Absolute) 8.2 1.4-7.0 Lymphs (Absolute) 3.0 0.7-3.1 Monocytes(Absolute) 1.6 0.1-0.9 Eos (Absolute) 0.4 0.0-0.4 Baso (Absolute) 0.0 0.0-0.2 Immature Granulocytes 0 Immature Grans (Abs) 0.0 0.0-0.1 NRBC Hematology Comments: LIPID PANEL 2016-11-23 Cholesterol, Total 135 100-199 Triglycerides 95 0-149 HDL Cholesterol 41 >39 VLDL Cholesterol Brandon 19 5-40 LDL Cholesterol Calc 75 0-99 Comment: CMP 2016-11-23 Glucose, Serum 111 65-99 BUN 12 8-27 Creatinine, Serum 0.71 0.76-1.27 eGFR If NonAfricn Am 101 >59 eGFR If Africn Am 116 >59 BUN/Creatinine Ratio 17 10-22 Sodium, Serum 137 134-144 Potassium, Serum 6.2 3.5-5.2 Chloride, Serum 97 96-106 Carbon Dioxide, Total 26 18-29 Calcium, Serum 9.3 8.6-10.2 Protein, Total, Serum 7.0 6.0-8.5 Albumin, Serum 4.6 3.6-4.8 Globulin, Total 2.4 1.5-4.5 A/G Ratio 1.9 1.1-2.5 Bilirubin, Total 0.3 0.0-1.2 Alkaline Phosphatase, S 53 39-117 AST (SGOT) 8 0-40 ALT (SGPT) 13 0-44 PROCEDURES Procedure Date Ordered Related Diagnosis Body Site GLYCATED HEMOGLOBIN TEST Nov 23, 2016 [facility], 2016 Office Visit, Est Pt., Level 4 Nov 23, 2016 COUNTS INCLUDE 234 BEDS AT THE [facility] VISIT ESTABLISHED PATIENT Nov 23, 2016 VENIPUNCT, ROUTINE* Nov 23, 2016 IMMUNIZATIONS No Known Immunizations
--- OUTSIDE RECORDS SUMMARY | 2017-09-21 11:53 | XMS REPORT ---
Author Author NILAM MCDONALD Organization [facility] Address [address] [place] [address] Care Team Providers Care Collateral Analyst Name Role Phone NILAM MCDONALD Unavailable PROBLEMS Type Condition ICD9-CM Code HGG54-AM Code Onset Dates Condition Status SNOMED Code Problem HTN (hypertension) I10 Active 24725900 Problem Anxiety F41.9 Active 36269478 Problem Depression F32.9 Active 90572827 Problem Pure hypercholesterolemia E78.00 Active 926506040 Problem Type 2 diabetes mellitus with other specified complication E11.69 Active 4542754 Problem Pre-ulcerative calluses L84 Active 60520193 Problem Parkinsons disease G20 Active 06465707 Problem Cervical stenosis of spine M48.02 Active 49751952 Problem Coronary atherosclerosis due to lipid rich plaque I25.83 Active 306469033558430 Problem Cervicalgia M54.2 Active 225103327040758 Problem Other chronic pain G89.29 Active 68186428 Problem Atherosclerotic heart disease of [place] coronary artery without angina pectoris I25.10 Active 378370307 ALLERGIES No Information SOCIAL HISTORY Never Assessed PLAN OF CARE VITAL SIGNS MEDICATIONS Medication Instructions Dosage Frequency Start Date End Date Duration Status Ultram 50 mg Orally 3 times a day 1 tablet as needed 8h Nov, Active RESULTS No Results PROCEDURES No Known [...]
--- OUTSIDE RECORDS SUMMARY | 2017-09-21 11:53 | XMS REPORT ---
Author Author ROSA M PAREKH [facility] Address [address] [place] [address] Care Team Providers Care Making Line Worker Name Role Phone ROSA M PAREKH Unavailable PROBLEMS Type Condition ICD9-CM Code DTV99-ZA Code Onset Dates Condition Status SNOMED Code Problem HTN (hypertension) I10 Active 66425386 Problem Anxiety F41.9 Active 75227111 Problem Depression F32.9 Active 78663811 Problem Pure hypercholesterolemia E78.00 Active 223521057 Problem Type 2 diabetes mellitus with other specified complication E11.69 Active 8568321 Problem Pre-ulcerative calluses L84 Active 94681264 Problem Parkinsons disease G20 Active 35027108 Problem Cervical stenosis of spine M48.02 Active 16458772 Problem Coronary atherosclerosis due to lipid rich plaque I25.83 Active 452321511572743 Problem Cervicalgia M54.2 Active 928020217340711 Problem Other chronic pain G89.29 Active 96272017 Problem Atherosclerotic heart disease of [place] coronary artery without angina pectoris I25.10 Active 084181845 ALLERGIES Unknown Allergies SOCIAL HISTORY No smoking Hx information available PLAN OF CARE Activity Details Follow Up prn Reason:Neck Pain VITAL SIGNS MEDICATIONS Unknown Medications RESULTS No Results PROCEDURES No Known procedures IMMUNIZATIONS No Known Immunizations
--- OUTSIDE RECORDS SUMMARY | 2017-09-21 11:53 | XMS REPORT ---
Author Author NILAM MCDONALD Organization [facility] Address [address] [place] [address] Care Team Providers Care Lidder Name Role Phone NILAM MCDONALD Unavailable PROBLEMS Type Condition ICD9-CM Code QQR33-MT Code Onset Dates Condition Status SNOMED Code Problem HTN (hypertension) I10 Active 16604958 Problem Anxiety F41.9 Active 75492072 Problem Depression F32.9 Active 28434793 Problem Pure hypercholesterolemia E78.00 Active 427019919 Problem Type 2 diabetes mellitus with other specified complication E11.69 Active 1956595 Problem Pre-ulcerative calluses L84 Active 07417841 Problem Parkinsons disease G20 Active 41063083 Problem Cervical stenosis of spine M48.02 Active 82005337 Problem Coronary atherosclerosis due to lipid rich plaque I25.83 Active 925363012578648 Problem Cervicalgia M54.2 Active 492856775718654 Problem Other chronic pain G89.29 Active 38219099 Problem Atherosclerotic heart disease of [place] coronary artery without angina pectoris I25.10 Active 037743908 ALLERGIES No Information SOCIAL HISTORY Never Assessed [...]
[2017-09-21] MEDS ORDERED: PRD20T PO (14:31)
--- NOTE | 2017-09-21 14:33 | ED Back Pain ---
General Chief Complaint: Lower Extremity Stated Complaint: RT LEG PAIN Nursing Triage Note: AMBULATED TO ROOM 07 WITH COMPLAINTS OF RIGHT HIP/LEG PAIN X1 WEEK. DENIES INJURY. Nursing Sepsis Screen: No Definite Risk Source of Information: Patient Exam Limitations: No Limitations History of Present Illness Time Seen by Provider: 14:18 Timing/Duration: 1 Week Pain/Injury Location: Other (rt low back radiating down the rt buttock and RLE) Method of Injury: Unknown (denies known injury.) Modifying Factors: Worse With Movement, Worse With Other (worse with standing and sitting for long periods.) Associated Symptoms: muscle spasms, No fever, No weakness, No numbness in legs/ feet, No tingling in legs/feet, No sensory/motor loss, lower back pain, No loss of bladder control, No loss of bowel control Allergies and Home Medications Allergies Coded Allergies: NKANo Known Allergies (Verified Allergy, Unknown, 08/10/06) Home Medications Aspirin 325 Mg Tabec, 325 MG PO HS, (Reported) Carvedilol 6.25 Mg Tablet, 6.25 MG PO BID, (Reported) Divalproex Sodium 500 Mg Tablet.dr, 1,000 MG PO HS, (Reported) TAKES 2 (500 MG) TABLETS Divalproex Sodium 500 Mg Tab.er.24h, 500 MG PO DAILY, (Reported) Gabapentin 300 Mg Capsule, 300 MG PO HS, (Reported) Lisinopril 20 Mg Tablet, 20 MG PO DAILY, (Reported) Loratadine 10 Mg Tablet, 10 MG PO DAILY, (Reported) Meloxicam 7.5 Mg Tablet, 7.5 MG PO BID, (Reported) Metformin HCl 1,000 Mg Tablet, 1,000 MG PO BID, (Reported) Risperidone 4 Mg Tablet, 4 MG PO HS, (Reported) Sertraline HCl 100 Mg Tablet, 200 MG PO DAILY, (Reported) Simvastatin 40 Mg Tablet, 40 MG PO HS, (Reported) Tizanidine HCl 4 Mg Tablet, 4 MG PO TID, (Reported) Trazodone HCl 50 Mg Tablet, 50 MG PO HS, (Reported) Past Wtkzvwr-Mxqrdg-Kspxel Hx Patient Social History Alcohol Use: Denies Use Alcohol Beverage of Choice: Beer Recreational Drug Use: No Smoking Status: Current Everyday Smoker Type Used: Cigarettes Recent Foreign Travel: No Contact w/Someone Who Travel: No Recent Infectious Disease Expo: No Recent Hopitalizations: No Seasonal Allergies Seasonal Allergies: Yes Surgeries History of Surgeries: Yes (LT KNEE) Surgeries: Appendectomy, Orthopedic Respiratory History of Respiratory Disorde: No ("SMOKED FOR A LONG TIME AND IT'S HARD TO BREATHE") Cardiovascular History of Cardiac Disorders: Yes Cardiac Disorders: Hypertension Neurological History of Neurological Disord: No Genitourinary History of Genitourinary Disor: No Gastrointestinal History of Gastrointestinal Di: Yes ("DIARRHEA ALL THE TIME") Gastrointestinal Disorders: Irritable Bowel Musculoskeletal History of Musculoskeletal Dis: No Endocrine History of Endocrine Disorders: Yes Endocrine Disorders: Diabetes, Non-Insulin dep HEENT History of HEENT Disorders: No Cancer History of Cancer: Yes Cancer: Testicular Did You Recieve Any Treatments: No Psychosocial History of Psychiatric Problem: Yes Behavioral Health Disorders: Anxiety, PTSD, Personality Disorder, Violent Behavior Integumentary History of Skin or Integumenta: No Blood Transfusions History of Blood Disorders: No Physical Exam Vital Signs Vital Sign - Last 12Hours 09/21/17 12:10 Temp 98.0 Pulse 55 Resp 16 B/P (MAP) 184/47 Pulse Ox 96 Capillary Refill : Less Than 3 Seconds Progress/Results/Core Measures Results/Orders Vital Signs/I&O Vital Sign - Last 12Hours 09/21/17 12:10 Temp 98.0 Pulse 55 Resp 16 B/P (MAP) 184/47 Pulse Ox 96 Blood Pressure Mean: 92 Departure Impression Impression: Primary Impression: Sciatica of right side Disposition: 01 HOME, SELF-CARE Condition: Improved Departure-Patient Inst. Decision time for Depature: 14:30 Referrals: [facility] (PCP/Family) Primary Care Physician Patient Instructions: Sciatica (DC), Sciatica Exercises Add. Discharge Instructions: All discharge instructions reviewed with patient and/or family. Voiced understanding. Medications as directed. Increase Baclofen to 20 mg by mouth 3 times per day as needed for muscle spasm. After 3-4 days resume the usual dose as prescribed by your primary care provider. Increase Mobic to 15 mg by mouth once daily 5 days, then resume usual mode with dose. Ice packs or heating pads as needed for pain. No heavy lifting, pushing, pulling, twisting, bending, climbing 7 days. Follow-up with your primary care provider for recheck an outpatient if no improvement in symptoms in 7-10 days. Return to the emergency department for worsened pain, numbness, weakness, bowel incontinence, bladder incontinence, fever, or any other concerns. Scripts Prednisone (Prednisone) 20 Mg Tab 40 MG PO DAILY, #10 TAB 0 Refills Prov: CLAUDINE AGUILAR 09/21/17 CLAUDINE AGUILAR Sep 21, 2017 14:33
[2017-09-21 14:38] VITALS: BP 184/47
== END 2017-09-21 14:38 | disposition home or self-care (01) ==
LOC: EDUNIT# 11:06 → ER 11:08
DX: M54.31 Sciatica, right side (principal); F41.9 Anxiety disorder, unspecified; F43.10 Post-traumatic stress disorder, unspecified; E11.9 Type 2 diabetes mellitus without complications; I10 Essential (primary) hypertension; K58.9 Irritable bowel syndrome, unspecified; F17.210 Nicotine dependence, cigarettes, uncomplicated; Z90.49 Acquired absence of other specified parts of digestive tract; Z79.84 Long term (current) use of oral hypoglycemic drugs; Z79.82 Long term (current) use of aspirin
CPT/HCPCS: 99283

== ENCOUNTER → 2017-10-06 | Outpatient (CLI) | payer MEDICARE, MEDICAID ==
[~2017-10-06] MED LIST changes: +PRD20T PO
--- NOTE | 2017-10-06 18:33 | Diagnostic Imaging Report ---
PROCEDURE: MRI lumbar spine. TECHNIQUE: Multiplanar, multisequence MRI of the lumbar spine was performed without contrast. INDICATION: Back pain, bilateral leg pain of one month's duration. No priors. FINDINGS: Lumbar statures are normal. Marrow signal intensity unremarkable. No bone contusion or marrow edema. The alignment unremarkable. The conus appeared normal. There is no intrathecal abnormality. Degenerative changes are greatest at the L5-S1 level where there is marked fluid-containing hypertrophied facets, ligamentous thickening, disc bulge and endplate osteophytes. Appearing to arise off the left L5-S1 facet and oriented inferiorly directed into the spinal canal is an ovoid cystic intensity structure measuring 7 mm in diameter. This impinges upon the proximal and descending left S1 nerve compressed anteriorly. Off the right facet at the same level, a smaller also cystic intensity facet cyst measured 5.7 mm and effaces the right lateral thecal sac and caudally may impinge upon the takeoff and proximal aspect of the right descending S1 nerve. There is mild spondylosis at L3-L4 and L4-L5 without substantial canal, foraminal or recess stenosis. Bulging disc material and endplate osteophytes at the L5-S1 level result in mild left greater than right biforaminal narrowing. IMPRESSION: 1. Degenerative changes greatest at the lumbosacral junction result in mild biforaminal stenosis. Facet arthrosis is present with medially oriented cystic structures off both L5-S1 facets impinging upon the central canal and bilateral S1 descending nerves. 2. Remaining levels unremarkable. No fracture or acute bony abnormality. Dictated by: Dictated on workstation # [id number]
== END ==
LOC: RAD 16:13
PROVIDERS: ATTEND Nurse Practitioner Family
DX: M47.27 Other spondylosis with radiculopathy, lumbosacral region (principal)
CPT/HCPCS: 72148

== ENCOUNTER 2018-05-04 17:45 | Inpatient (IN) | payer MEDICARE, MEDICAID ==
[~2018-05-04] VITALS: Ht 167.6 cm; Wt 71.4 kg
[~2018-05-04 17:45] MED LIST changes: -METF1000 PO; +METF10002 PO
[2018-05-04] MEDS ORDERED: NS IV 1000 ML 1,000 ML IV ONE (17:59)
[2018-05-04] MEDS ORDERED: LACTATED RINGERS 1,000 ML IV ONE (17:59)
--- NOTE | 2018-05-04 18:16 | ED General ---
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--GIVES CONFLICTING INFORMATION, AND SPEECH DIFFICULT TO UNDERSTAND ) History of Present Illness Date Seen by Provider: May 04, 2018 Time Seen by Provider: 17:46 Initial Comments PT ARRIVES VIA EMS FROM [facility] PT HAS BEEN DIZZY TODAY AND HAS FALLEN 3 TIMES TODAY DENIES SYNCOPE OR LOSS OF CONSCIOUSNESS HAS ABRASIONS TO FACE, RIGHT KNEE DENIES ANY HEADACHE/HEAD PAIN PT STATES HE IS SEEING BLACK SOMETIMES IN HIS LEFT EYE--STATES IT JUST STARTED SINCE ARRIVING IN ER--LASTS A FEW SECONDS AND IS GONE NOW BP 60/40 AT [facility] PT IS DIABETIC, NO REPORT OF ACCUCHECK BEING DONE THERE ACCUCHECKS BY EMS 75 AND 108 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 , AND HAS NOT HAD MUCH TO DRINK TODAY, OR TO EAT PT STATES HE HAS NOT URINATED ALL DAY TODAY PT STATES HE HAS DIZZINESS FREQUENTLY FOR A LONG TIME--[facility] NOTES, REPORT THAT HE HAS BEEN DIZZY FOR 1 1/2 WEEKS C/O LEFT SHOULDER AND BACK PAIN C/O LEFT LOWER CHEST PAIN FOR A COUPLE OF WEEKS C/O DIARRHEA X 5-6 YEARS, AND IS OFTEN INCONTINENT DURING SLEEP C/O GENERALIZED ABDOMINAL PAIN FOR 1-2 WEEKS NO NAUSEA/VOMITING ALSO C/O PAINFUL CALLOUS TO RIGHT GREAT TOE PCP:[facility] Allergies and Home Medications Allergies Coded Allergies: NKANo Known Allergies (Verified Allergy, Unknown, 08/10/06) Home Medications Aripiprazole 15 Mg Tablet, 15 MG PO DAILY, (Reported) Baclofen 10 Mg Tablet, 10 MG PO TID, (Reported) Carbidopa/Levodopa 1 Each Tablet, 1 TAB PO TID, (Reported) Carvedilol 6.25 Mg Tablet, 6.25 MG PO BID, (Reported) Escitalopram Oxalate 20 Mg Tablet, 20 MG PO DAILY, (Reported) Gabapentin 300 Mg Capsule, 300 MG PO TID, (Reported) Lisinopril 20 Mg Tablet, 20 MG PO DAILY, (Reported) Metformin HCl 500 Mg Tab.er.24h, 500 MG PO BID WITH MEALS, (Reported) Simvastatin 40 Mg Tablet, 40 MG PO HS, (Reported) Trazodone HCl 100 Mg Tablet, 200 MG PO HS, (Reported) TAKES 2 (100MG) TABLETS Patient Home Medication List Home Medication List Reviewed: Yes Past Glupfgz-Eajcya-Jykurk Hx Patient Social History Alcohol Beverage of Choice: Beer Type Used: Cigarettes Recent Hopitalizations: No Seasonal Allergies Seasonal Allergies: Yes Past Medical History Surgeries: Yes (LT KNEE) Appendectomy, Orthopedic Respiratory: No ("SMOKED FOR A LONG TIME AND IT'S HARD TO BREATHE") Cardiac: Yes Hypertension Neurological: No Genitourinary: No Gastrointestinal: Yes ("DIARRHEA ALL THE TIME") Irritable Bowel Musculoskeletal: No Endocrine: Yes Diabetes, Non-Insulin dep HEENT: No Cancer: Yes Testicular Did You Recieve Any Treatments: No Psychosocial: Yes Anxiety, PTSD, Personality Disorder, Violent Behavior Integumentary: No Blood Disorders: No Physical Exam Vital Signs Capillary Refill : Progress/Results/Core Measures Suspected Sepsis SIRS Temperature: Pulse: Respiratory Rate: Blood Pressure / Mean: Results/Orders My Orders Vital Signs/I&O Capillary Refill : Departure Departure-Patient Inst. Referrals: RODOLFO SAHNI DO (PCP) Primary Care Physician ARTEMIO RAMIREZ APRN (Family) Primary Care Physician JACINTA GRAVES DO May 04, 2018 18:16
[2018-05-04 18:19] LABS: BASOPHILS % (AUTO) 0 % (0-10); EOSINOPHILS # (AUTO) 0.1 10^3/uL (0.0-0.3); EOSINOPHILS % (AUTO) 1 % (0-10); HEMATOCRIT 36 % (40-54); HEMOGLOBIN 12.8 G/DL (13.3-17.7); LYMPHOCYTES # (AUTO) 2.6 X 10^3 (1.0-4.0); LYMPHOCYTES % (AUTO) 27 % (12-44); MEAN CORPUSCULAR HEMOGLOBIN 29 PG (25-34); MEAN CORPUSCULAR HGB CONC 35 G/DL (32-36); MEAN CORPUSCULAR VOLUME 83 FL (80-99); MONOCYTES # (AUTO) 1.5 X 10^3 (0.0-1.0); MONOCYTES % (AUTO) 15 % (0-12); NEUTROPHILS # (AUTO) 5.6 X 10^3 (1.8-7.8); NEUTROPHILS % (AUTO) 57 % (42-75); PLATELET COUNT 225 10^3/uL (130-400); RED BLOOD COUNT 4.38 10^6/uL (4.35-5.85); RED CELL DISTRIBUTION WIDTH 16.3 % (10.0-14.5); WHITE BLOOD COUNT 9.8 10^3/uL (4.3-11.0)
[2018-05-04 18:31] LABS: INR 1.1 (0.8-1.4); PROTHROMBIN TIME PATIENT 13.7 SEC (12.2-14.7)
[2018-05-04 18:41] LABS: ALANINE AMINOTRANSFERASE < 6 U/L (0-55); ALBUMIN 3.5 GM/DL (3.2-4.5); ALKALINE PHOSPHATASE 57 U/L (40-136); AMYLASE 52 U/L (25-125); BILIRUBIN,TOTAL 0.3 MG/DL (0.1-1.0); BUN/CREATININE RATIO 19; CALCIUM 8.2 MG/DL (8.5-10.1); CARBON DIOXIDE 20 MMOL/L (21-32); CHLORIDE 107 MMOL/L (98-107); CREATINE KINASE 190 U/L (30-200); CREATININE SERUM 3.51 MG/DL (0.60-1.30); GFR ESTIMATED 18; GLUCOSE 90 MG/DL (70-105); LIPASE 28 U/L (8-78); MAGNESIUM 2.1 MG/DL (1.8-2.4); POTASSIUM 3.6 MMOL/L (3.6-5.0); SODIUM 137 MMOL/L (135-145); TOTAL PROTEIN 6.2 GM/DL (6.4-8.2)
[2018-05-04 18:49] LABS: ACETAMINOPHEN < 10 UG/ML (10-30)
[2018-05-04 19:01] LABS: TSH (THYROID ANALYZER) 0.78 UIU/ML (0.35-4.94)
[2018-05-04 19:05] LABS: CREATINE KINASE MB 7.3 NG/ML (<6.6)
--- NOTE | 2018-05-04 19:29 | Diagnostic Imaging Report ---
PATIENT HISTORY: Syncope, fall. TECHNIQUE: Single frontal view of the chest. COMPARISON: 09/19/2007. FINDINGS: Lung volumes are mildly low. There are perihilar interstitial opacities which may represent central vascular congestion or may be due to crowding from low lung volumes. The cardiac silhouette appears mildly prominent, likely related to technique. No pleural effusion or pneumothorax is seen. No acute osseous abnormality is seen. IMPRESSION: Findings of mild cardiomegaly and mild central vascular congestion, maybe accentuated by low lung volumes. Dictated by: Dictated on workstation # [id number]
--- NOTE | 2018-05-04 19:32 | Diagnostic Imaging Report ---
INDICATION: Syncope. EXAMINATION: Pelvis, 05/04/2018. FINDINGS: No fracture or dislocation appreciated. There is hyperdensity along the right superior femoral head, which is nonspecific but could represent a focus of AVN. This has a fairly chronic appearance. No collapse of the adjacent femoral head is seen. IMPRESSION: 1. Chronic changes in the right hip. No fractures appreciated at this time, but if there is persistent pain or patient cannot bear weight, MRI recommended. Dictated by: Dictated on workstation # [id number]
--- NOTE | 2018-05-04 19:43 | Diagnostic Imaging Report ---
PROCEDURE: CT head, face, and cervical spine without contrast. TECHNIQUE: Multiple contiguous axial images were obtained through the head, neck, and facial bones without the use of intravenous contrast. Sagittal and coronal reformations through the cervical spine and facial bones were also performed. INDICATION: Injury to head, face, and neck, syncope with fall. COMPARISON: MRI of the cervical spine from 02/11/2016. FINDINGS: CT head: The ventricles and cortical sulci are diffusely prominent. There is no midline shift or mass effect. Calcific atherosclerosis is present. No acute intracranial hemorrhage is seen. No CT evidence of acute territorial ischemia is identified. The calvarium appears intact. CT face: The pterygoid plates and zygomatic arches are intact. The mandible appears intact. Motion artifact is present. The maxillary sinuses and orbits appear intact. Mucus retention cysts are noted in the right maxillary sinus. The globes appear intact. There is soft tissue edema overlying the left mandible. CT cervical spine: There is motion artifact on multiple images. This results in suboptimal evaluation. No acute fracture is seen. There is grade 1 anterolisthesis at C3-C4 and C4-C5. Advanced degenerative changes are seen at C5-C6 and C6-C7, resulting in spinal canal stenosis at those levels. There is multilevel foraminal stenosis as well. No bony fragments or hyperdense fluid collections are seen in the spinal canal. There is a prominent right thyroid lobe. IMPRESSION: 1. No acute intracranial hemorrhage, calvarium fracture, or CT evidence of acute territorial ischemia seen. 2. Generalized parenchymal volume loss. 3. No acute facial fracture seen. 4. Motion artifact in the cervical spine with no acute fracture seen. There are multilevel degenerative changes and spondylolisthesis. There is spinal canal stenosis at C5-C6 and C6-C7. Dictated by: Dictated on workstation # [id number]
--- OUTSIDE RECORDS SUMMARY | 2018-05-04 20:13 | XMS REPORT | Clinical Summary ---
Author Author [facility] Organization [facility] Address Unknown Phone Unavailable Care Team Providers Care Automotive Engineering Teacher Name Role Phone Self, Referral PCP Unavailable Source Comments Some departments are not documenting in the electronic medical record. If you do not see the information that you expected, contact Release of Information in the Health Information Management department at [phone] for further assistance in locating additional records.[facility] Allergies No Known Allergies Current Medications [...] Taken Blood Pressure 111/67 10/06/2007 9:56 AM RELAY RECORD CLERK Pulse 65 10/06/2007 9:56 AM RELAY RECORD CLERK Temperature 36.9 C (98.4 F) 10/06/2007 9:56 AM RELAY RECORD CLERK Respiratory Rate - - Oxygen Saturation 96% 10/06/2007 9:56 AM RELAY RECORD CLERK Inhaled Oxygen - - Concentration Weight 82.6 kg (182 lb) 10/04/2007 7:48 AM RELAY RECORD CLERK Height 167.6 cm (5' 6") 10/04/2007 7:48 AM RELAY RECORD CLERK Body Mass Index 29.38 10/04/2007 7:48 AM RELAY RECORD CLERK Plan of Treatment Health Maintenance Due Date Last Done Comments HEPATITIS C SCREENING 1954 PHYSICAL (COMPREHENSIVE) 1961 EXAM PERTUSSIS VACCINE 1965 HIV SCREENING 1969 TETANUS VACCINE 1971 COLORECTAL CANCER 2004 SCREENING SHINGLES VACCINE 2014 INFLUENZA VACCINE 08/21/2018 Results Not on filefrom Last 3 Months
--- OUTSIDE RECORDS SUMMARY | 2018-05-04 20:14 | XMS REPORT ---
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 Active 473744583 Problem Acute right-sided low back pain with right-sided sciatica M54.41 Active 128571577 Problem Lumbar spondylosis M47.816 Active 589822202 Problem Parkinsons disease G20 Active 17566550 Problem Cervical stenosis of spine M48.02 Active 46501478 Problem 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 Active 120391060 Problem Hypercholesterolemia E78.0 Active 01318264 Problem Pure hypercholesterolemia E78.00 Active 289173692 Problem Depression F32.9 Active 62378680 Problem Pre-ulcerative calluses L84 Active 78334618 Problem Type 2 diabetes mellitus with other specified complication E11.69 Active 9173525 Problem Anxiety F41.9 Active 61180082 Problem HTN (hypertension) I10 Active 97834309 Problem Cervicalgia M54.2 Active [id number] ALLERGIES No Information ENCOUNTERS Encounter Location Date Diagnosis [facility] [id number] [address] March, [facility] [address] [address] Jan, [facility] [address] [address] Jan, [facility] [id number] [place] [address] 88935- 0683 Dec, Cervicalgia M54.2 [place] [id number] [place] [address] 02484- 0678 02 Dec, 2017 Controlled substance agreement signed Z79.899 [place] [id number] [place] [address] 90637- 5312 Oct, Cervicalgia M54.2 [place] [address] [address]289- 4074 Oct, Acute right-sided low back pain with right-sided sciatica M54.41 [place] [id number] [place] [address] 82697- 1220 Oct, [place] [address] [address]- 5429 Sep, Cervicalgia M54.2 [place] [address] 08208- 5587 14 Sep, 2017 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 [place] [id number] [place] [address] 76237- 9154 13 Sep, 2017 Lumbar back pain with radiculopathy affecting right lower extremity M54.17 [place] [id number] [place] [address] 15428- 6090 03 Sep, 2017 Acute right-sided low back pain with right-sided sciatica M54.41 [place] [id number] [place] [address] 31571- 5441 30 Aug, 2017 Type 2 diabetes mellitus with other specified complication E11.69 ; HTN (hypertension) I10 ; Cervicalgia M54.2 ; Cervical stenosis of spine M48.02 ; Acute right hip pain M25.551 ; Atherosclerotic heart disease of alturas coronary artery without angina pectoris I25.10 ; Hypercholesterolemia E78.0 ; Parkinsons disease G20 and Depression F32.9 [place] [id number] [place] [address] 73317- 0447 Aug, Other chronic pain G89.29 [facility] [address] [address] Jul, Other chronic pain G89.29 [facility] [address] [address] 84[address] 21 Jul, 2017 [facility] [address] [address] 19 Jul, 2017 Cough R05 and Bronchitis J40 [facility] [id number] [address] 1180 30 Jun, 2017 Other chronic pain G89.29 [facility] [id number] [place] [address] 42468- 5480 Jun, [facility] [id number] [place] [address] 15379- 5455 Jun, Atherosclerotic heart disease of alturas coronary artery without angina pectoris I25.10 and Cervicalgia M54.2 [facility] [address] [address]- 8769 Jun, Cervicalgia M54.2 [facility] [id number] [place] [address] 73581- 3142 May, Other chronic pain G89.29 [facility] [id number] [address] 9438 May, [facility] [id number] [address] 5065 May, [facility] [id number] [address]- 7612 May, [facility] [id number] [place] [address] 15628- 0218 May, [facility] [address] [address]- 0899 May, Type 2 diabetes mellitus with other specified complication E11.69 ; HTN (hypertension) I10 ; Atherosclerotic heart disease of alturas coronary artery without angina pectoris I25.10 ; Parkinsons disease G20 and Cervical stenosis of spine M48.02 [place] [id number] [place] [address] 86682- 2521 Apr, Cervicalgia M54.2 [place] [id number] [place] [address] 95458- 6102 Apr, Type 2 diabetes mellitus with other specified complication E11.69 ; HTN (hypertension) I10 ; Depression F32.9 ; Atherosclerotic heart disease of alturas coronary artery without angina pectoris I25.10 ; Coronary atherosclerosis due to lipid rich plaque I25.83 ; Cervicalgia M54.2 ; Parkinsons disease G20 ; Chronic diarrhea K52.9 and Pure hypercholesterolemia E78.00 [place] [id number] [place] [address] 55858- 4328 March, Other chronic pain G89.29 [place] [address] 08171- 2697 March, Other chronic pain G89.29 [place] [id number] [place] [address] 94052- 8885 Feb, Cervical stenosis of spine M48.02 [place] [id number] [place] [address] 58406- 2560 Feb, Other chronic pain G89.29 [place] [id number] [place] [address] 30664- 6727 Jan, [place] [id number] [place] [address] 41967- 2545 Jan, Other chronic pain G89.29 [place] [id number] [place] [address] 66769- 7576 Jan, Other chronic pain G89.29 [place] [id number] [place] [address] 60986- 2557 Jan, Type 2 diabetes mellitus with other specified complication E11.69 ; Atherosclerotic heart disease of alturas coronary artery without angina pectoris I25.10 ; Anxiety F41.9 ; HTN (hypertension) I10 ; Depression F32.9 ; Coronary atherosclerosis due to lipid rich plaque I25.83 ; Cervicalgia M54.2 ; Other chronic pain G89.29 and Functional 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 [facility] [id number] [place] [address] 56952- 4975 Nov, HTN (hypertension) I10 [place] [address] 24472- 6752 03 Nov, 2016 Type 2 diabetes mellitus with other specified complication E11.69 ; Atherosclerotic heart disease of alturas coronary artery without angina pectoris I25.10 ; Hypercholesterolemia E78.0 ; Anxiety F41.9 ; Depression F32.9 ; Cervicalgia M54.2 and Functional 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 [place] [id number] [place] [address] 32540- 6345 Oct, [place] [address] 45467- 4236 Oct, Neck pain M54.2 [place] [id number] [place] [address] 06457- 7863 Sep, [place] [id number] [place] [address] 90032- 3912 Aug, [facility] [id number] [place] [address] 69359- 1548 Aug, [facility] [id number] [place] [address] 83737 -7449 Jul, Visit for TB skin test Z11.1 and Screening for tuberculosis Z11.1 [facility] [id number] [place] [address] 09207- 9643 May, [facility] [id number] [place] [address] 13117- 1605 May, Neck pain M54.2 [facility] [id number] [place] [address] 33784- 4691 May, [facility] [address] [address]- 8752 Apr, Neck pain M54.2 [facility] [id number] [place] [address] 683793- 7338 Feb, Neck pain M54.2 [facility] [id number] [place] [address] 16659- 0816 Feb, [facility] [id number] [place] [address] 09236- 9749 Jan, Neck pain M54.2 [place] [id number] [place] [address] 31241- 5974 Jan, [facility] [id number] [place] [address] 31985- 0223 Jan, Neck pain M54.2 [place] [id number] [place] [address] 80871- 3546 08 Jan, 2016 Neck pain M54.2 ; Type 2 diabetes mellitus with other specified complication E11.69 ; CAD (coronary artery disease) 414.00 ; Insomnia 780.52 ; Anxiety F41.9 ; Depression F32.9 ; Pre-ulcerative calluses L84 and Hypercholesterolemia E78.0 [place] [id number] [place] [address] 72330- 7465 Nov, [place] [id number] [place] [address] 04692- 4963 Nov, Type 2 diabetes mellitus with other specified complication E11.69 ; Pre-ulcerative calluses L84 ; HTN (hypertension) I10 ; Hypercholesterolemia E78.0 ; Anxiety F41.9 ; Depression F32.9 ; Environmental allergies Z91.09 and Osteoarthritis M19.90 [address] [place] [address]- 7518 Sep, [place] [id number] [place] [address] 47039- 8497 Aug, Allergic rhinitis, seasonal J30.2 [facility] [id number] [place] [address] 86617- 5374 Jul, [facility] [id number] [place] [address] 46325- 7588 Jul, Other specified cardiac dysrhythmias 427.89 ; Essential hypertension, benign 401.1 ; Nondependent tobacco use disorder 305.1 ; Unspecified hereditary and idiopathic peripheral neuropathy 356.9 ; Diabetes mellitus without mention of complication, type II or unspecified type, not stated as uncontrolled 250.00 ; CAD (coronary artery disease) 414.00 ; Insomnia 780.52 and Depression 311 [facility] [address] 42104- 4895 Jul, [facility] [id number] [place] [address] 36747- 7035 Jul, [facility] [address] 71278- 9862 May, [facility] [id number] [place] [address] 57052- 9576 May, [facility] [id number] [place] [address] 79931- 9563 May, [facility] [id number] [place] [address] 15724- 3374 Apr, [facility] [id number] [place] [address] 41080- 1207 Apr, Skin lesion of face 709.9 and Anxiety 300.00 [facility] [id number] [place] [address] 78312- 8911 March, [facility] [id number] [place] [address] 69452- 8528 Feb, [facility] [id number] [place] [address] 18419- 5670 Feb, [facility] [id number] [place] [address] 29007- 1483 Jan, [facility] [place] [facility] [address] [id number] [place] [address]- 8004 Jan, [facility] [place] [facility] [address] [id number] [place] [address]- 7353 Jan, [facility] [place] [facility] [address] [id number] [place] [address]- 3276 Jan, [facility] [place] [facility] [address] [id number] [place] [address]- 0502 Jan, [facility] [place] [facility] [address] [id number] [place] [address]- 9782 Jan, [facility] [place] [facility] [address] [id number] [place] [address]- 9250 Dec, [facility] [place] [facility] [address] [id number] [place] [address]- 1551 Dec, [facility] [place] [facility] [address] [facility] [id number] [place] [address]- 7443 Nov, [facility] [place] [facility] [address] [id number] [place] [address]- 3305 Nov, [facility] [place] [facility] [address] [facility] [id number] [place] [address]- 5767 Oct, [facility] [place] [facility] [address] [id number] [place] [address]- 2091 Oct, [facility] [place] [facility] [address] [id number] [place] [address]- 2713 Oct, [facility] [place] [facility] [address] [id number] [place] [address]- 4577 Oct, [facility] [place] [facility] [address] [id number] [place] [address]- 5587 Sep, [facility] [place] [facility] [address] [facility] [id number] [place] [address]- 4662 Sep, [facility] [place] [facility] [address] [id number] [place] [address]- 4191 Sep, [facility] [place] [facility] [address] [id number] [place] [address]- 9926 Sep, [facility] [place] [facility] [address] [id number] [place] [address]- 1920 Sep, [facility] [place] [facility] [address] [id number] [place] [address]- 0830 Sep, [facility] [place] [facility] [address] [id number] [place] [address]- 8274 Aug, [facility] [place] [facility] [address] [id number] [place] [address]- 7384 Aug, [facility] [place] [facility] [address] [id number] [place] [address]- 0234 Aug, [facility] [place] [facility] [address] [id number] [place] [address]- 4888 Aug, [facility] [place] [facility] [address] [id number] [place] [address]- 1880 Aug, [facility] [place] [facility] [address] [id number] [place] [address]- 2405 Aug, [facility] [place] [facility] [address] [id number] [place] [address]- 5008 Aug, [facility] [place] [facility] [address] [id number] [place] [address]- 6717 Aug, [facility] [place] [facility] [address] [id number] [place] [address]- 4343 Aug, [facility] [place] [facility] [address] [id number] [place] [address]- 3555 Aug, [facility] [place] [facility] [address] [id number] [place] 8593 05 Jul, 2014 [facility] [place] [facility] [address] [id number] [place] [address]- 0013 Jul, [facility] [place] [facility] [address] [id number] [place] [address]- 0928 May, [facility] [place] [facility] [address] [id number] [place] [address]- 8351 May, [facility] [place] [facility] [address] [id number] [place] [address]- 6587 May, [facility] [place] [facility] [address] [id number] [place] [address]- 5333 May, [facility] [place] [facility] [address] [id number] [place] [address]- 0788 May, [facility] [place] [facility] [address] [id number] [place] [address]- 3187 May, [facility] [place] [facility] [address] [id number] [place] [address]- 4247 Apr, [facility] [place] [facility] [address] [id number] [place] [address]- 9279 Apr, [facility] [place] [facility] [address] [id number] [place] [address]- 2332 Apr, [facility] [place] [facility] [address] [id number] [place] [address]- 1873 Apr, [facility] [place] [facility] [id number] [place] [address]- 4282 March, [facility] [place] [facility] [id number] [place] [address]- 8499 March, [facility] [place] [facility] [address] [id number] [place] [address]- 8678 Feb, [facility] [place] [facility] [address] [id number] [place] [address]- 3415 Feb, [facility] [place] [facility] [address] [id number] [place] [address]- 3221 Jan, [facility] [place] [facility] [address] [id number] [place] [address]- 3061 Jan, [facility] [address] [id number] [place] [address]- 7048 Nov, [facility] [place] [facility] [address] [id number] [place] [address]- 6471 Nov, [facility] [place] [facility] [address] [id number] [place] [address]- 1908 Nov, [facility] [place] [facility] [address] [id number] [place] [address]- 9300 Nov, [facility] [place] [facility] [address] [id number] [place] [address]- 3347 Nov, [facility] [place] [facility] [address] [id number] [place] [address]- 3907 Nov, [facility] [place] [facility] [address] [id number] [place] [address]- 3080 Oct, [facility] [place] [facility] [address] [id number] [place] [address]- 8061 Oct, [facility] [place] [facility] [address] [id number] [place] [address]- 8107 Aug, [facility] [place] [facility] [address] [id number] [place] [address]- 2477 Aug, [facility] [place] [facility] [address] [id number] [place] [address]- 9280 Jul, [facility] [place] [facility] [address] [id number] [place] [address]- 8778 Jun, [facility] [place] [facility] [address] [id number] [place] [address]- 3624 Jun, [facility] [place] [facility] [address] [id number] [place] [address]- 5936 Jun, [facility] [place] [facility] [address] [id number] [place] [address]- 7133 Jun, [facility] [address] [facility] [id number] [place] [address]- 2546 Jun, [facility] [address] [facility] [id number] [place] [address]- 2546 Jun, [facility] [id number] [address]- 2546 May, [facility] [id number] [address]- 2546 March, [facility] [id number] [address]- 2546 March, [facility] [id number] [address]- 2546 Jan, IMMUNIZATIONS No Known Immunizations SOCIAL HISTORY Never Assessed REASON FOR VISIT Baclofen PLAN OF CARE VITAL SIGNS MEDICATIONS Medication Instructions Dosage Frequency Start Date End Date Duration Status Baclofen 10 mg Orally Three times a day 1 tablet with food or milk 8h May, Sep, 30 day(s) Active RESULTS No Results PROCEDURES No Known procedures INSTRUCTIONS MEDICATIONS ADMINISTERED No Known Medications MEDICAL (GENERAL) HISTORY Type Description Date Medical History testicular cancer Medical History type II diabetes Medical History Arthritis Medical History hypertension Medical History depression Surgical History cholecystectomy 1999 Surgical History orchiectomy (R) r/t cancer Surgical History full mouth extraction Surgical History appendectomy 1968 Surgical History carpal tunnel 2017 Hospitalization History surgery
--- OUTSIDE RECORDS SUMMARY | 2018-05-04 20:14 | XMS REPORT ---
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 Active 710086615 Problem Acute right-sided low back pain with right-sided sciatica M54.41 Active 514301140 Problem Lumbar spondylosis M47.816 Active 578311291 Problem Parkinsons disease G20 Active 83815503 Problem Cervical stenosis of spine M48.02 Active 49016750 Problem 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 Active 189670133 Problem Hypercholesterolemia E78.0 Active 88143774 Problem Pure hypercholesterolemia E78.00 Active 862731211 Problem Depression F32.9 Active 87206707 Problem Pre-ulcerative calluses L84 Active 52756794 Problem Type 2 diabetes mellitus with other specified complication E11.69 Active 1120038 Problem Anxiety F41.9 Active 73236543 Problem HTN (hypertension) I10 Active 05306174 Problem Cervicalgia M54.2 Active [id number] ALLERGIES No Known Allergies ENCOUNTERS Encounter Location Date Diagnosis [facility] [id number] [address] March, [facility] [address], [place] [address] Feb, Cervicalgia M54.2 [facility] [id number], [place] [address] Feb, Cervical stenosis of spine M48.02 [facility] [id number] [place] [address] 30684- 3138 Jan, Cervicalgia M54.2 [facility] [id number] [place] [address] 63810- 9737 Jan, [facility] [id number] [place] [address] 35087- 2364 Dec, Cervicalgia M54.2 [place] [facility] [address] [address]472- 5874 Dec, Controlled substance agreement signed Z79.899 [facility] [id number] [place] [address] 00281- 1289 Oct, Cervicalgia M54.2 [facility] [id number] [place] [address] 71297- 9927 Oct, Acute right-sided low back pain with right-sided sciatica M54.41 [facility] [id number] [place] [address] 59696- 7653 Oct, [facility] [id number] [place] [address] 40302- 2838 Sep, Cervicalgia M54.2 [facility] [id number] [place] [address] 75741- 3626 14 Sep, 2017 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 [facility] [id number] [place] [address] 33051- 3623 13 Sep, 2017 Lumbar back pain with radiculopathy affecting right lower extremity M54.17 [facility] [id number] [place] [address] 03444- 1901 03 Sep, 2017 Acute right-sided low back pain with right-sided sciatica M54.41 [facility] [id number] [place] [address] 80429- 9980 30 Aug, 2017 Type 2 diabetes mellitus with other specified complication E11.69 ; HTN (hypertension) I10 ; Cervicalgia M54.2 ; Cervical stenosis of spine M48.02 ; Acute right hip pain M25.551 ; Atherosclerotic heart disease of comanche coronary artery without angina pectoris I25.10 ; Hypercholesterolemia E78.0 ; Parkinsons disease G20 and Depression F32.9 [facility] [id number] [place] [address] 49634- 0449 Aug, Other chronic pain G89.29 [facility] [id number] [place] [address] 81650- 7304 Jul, Other chronic pain G89.29 [facility] [id number] [place] [address] 25274- 6279 Jul, [facility] [address] 8[address]93 -2288 Jul, Cough R05 and Bronchitis J40 [facility] [address] 50571- 5308 Jun, Other chronic pain G89.29 [facility] [id number] [place] [address] 99693- 3802 Jun, [facility] [id number] [place] [address] 72124- 6210 Jun, Atherosclerotic heart disease of comanche coronary artery without angina pectoris I25.10 and Cervicalgia M54.2 [facility] [id number] [place] [address] 33884- 9968 Jun, Cervicalgia M54.2 [facility] [id number] [place] [address] 48449- 0161 May, Other chronic pain G89.29 [facility] [id number] [place] [address] 52064- 9280 May, [facility] [id number] [place] [address] 61365- 6869 May, [facility] [id number] [place] [address] 84557- 2653 May, [facility] [id number], [place] [address] 2651 May, [facility] [facility] [id number] [place] [address] 64122- 1996 May, Type 2 diabetes mellitus with other specified complication E11.69 ; HTN (hypertension) I10 ; Atherosclerotic heart disease of comanche coronary artery without angina pectoris I25.10 ; Parkinsons disease G20 and Cervical stenosis of spine M48.02 [place] [facility] [id number] [place] [address] 02481- 2571 Apr, Cervicalgia M54.2 [facility] [id number] [place] [address] 43565- 3522 Apr, Type 2 diabetes mellitus with other specified complication E11.69 ; HTN (hypertension) I10 ; Depression F32.9 ; Atherosclerotic heart disease of comanche coronary artery without angina pectoris I25.10 ; Coronary atherosclerosis due to lipid rich plaque I25.83 ; Cervicalgia M54.2 ; Parkinsons disease G20 ; Chronic diarrhea K52.9 and Pure hypercholesterolemia E78.00 [place] [facility] [id number] [place] [address] 08390- 7673 March, Other chronic pain G89.29 [facility] [id number] [place] [address] 44952- 2350 March, Other chronic pain G89.29 [facility] [id number] [place] [address] 25716- 3482 Feb, Cervical stenosis of spine M48.02 [facility] [address] [place] [address] 19324- 3597 Feb, Other chronic pain G89.29 [place] [facility] [id number] [place] [address] 10770- 9606 Jan, [facility] [facility] [id number] [place] [address] 68847- 0114 Jan, Other chronic pain G89.29 [facility] [facility] [id number] [place] [address] 57044- 9717 Jan, Other chronic pain G89.29 [place] [address] 76279- 6531 Jan, Type 2 diabetes mellitus with other specified complication E11.69 ; Atherosclerotic heart disease of comanche coronary artery without angina pectoris I25.10 ; Anxiety F41.9 ; HTN (hypertension) I10 ; Depression F32.9 ; Coronary atherosclerosis due to lipid rich plaque I25.83 ; Cervicalgia M54.2 ; Other chronic pain G89.29 and Functional 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 [facility] [id number] [place] [address] 46040- 2314 Nov, HTN (hypertension) I10 [place] [facility] [address] 97580- 5927 Nov, Type 2 diabetes mellitus with other specified complication E11.69 ; Atherosclerotic heart disease of comanche coronary artery without angina pectoris I25.10 ; Hypercholesterolemia E78.0 ; Anxiety F41.9 ; Depression F32.9 ; Cervicalgia M54.2 and Functional 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 [facility] [id number] [place] [address] 87987- 2493 Oct, [place] [address] 89631- 3329 Oct, Neck pain M54.2 [place] [id number] [place] [address] 66175- 8567 Sep, [facility] [id number] [place] [address] 76219- 3621 Aug, [facility] [address] 04165- 1273 Aug, [facility] [id number] [place] [address] 62210 -7179 Jul, Visit for TB skin test Z11.1 and Screening for tuberculosis Z11.1 [place] [address] 66055- 3854 May, [facility] [address], [place] [address] 2005 May, Neck pain M54.2 [facility] [address] [address] May, [facility] [address], [place] [address]- 3673 Apr, Neck pain M54.2 [facility] [address], [place] [address]- 8605 Feb, Neck pain M54.2 [facility] [id number] [place] [address] 32351- 8782 Feb, [facility] [id number], [place] [address]- 4431 Jan, Neck pain M54.2 [facility] [id number], [place] [address]- 5190 Jan, [facility] [address], [place] [address]- 5633 Jan, Neck pain M54.2 [facility] [address], [place] [address]- 7580 Jan, Neck pain M54.2 ; Type 2 diabetes mellitus with other specified complication E11.69 ; CAD (coronary artery disease) 414.00 ; Insomnia 780.52 ; Anxiety F41.9 ; Depression F32.9 ; Pre-ulcerative calluses L84 and Hypercholesterolemia E78.0 [facility] [address], [place] [address]- 9742 Nov, [facility] [address] [place] [address] 591038- 9090 Nov, Type 2 diabetes mellitus with other specified complication E11.69 ; Pre-ulcerative calluses L84 ; HTN (hypertension) I10 ; Hypercholesterolemia E78.0 ; Anxiety F41.9 ; Depression F32.9 ; Environmental allergies Z91.09 and Osteoarthritis M19.90 [facility] [id number] [place] [address] 52524- 0343 Sep, [facility] [address] 19799- 3844 Aug, Allergic rhinitis, seasonal J30.2 [place] [address] 80516- 6849 Jul, [facility] [address] 93689- 1151 Jul, Other specified cardiac dysrhythmias 427.89 ; Essential hypertension, benign 401.1 ; Nondependent tobacco use disorder 305.1 ; Unspecified hereditary and idiopathic peripheral neuropathy 356.9 ; Diabetes mellitus without mention of complication, type II or unspecified type, not stated as uncontrolled 250.00 ; CAD (coronary artery disease) 414.00 ; Insomnia 780.52 and Depression 311 [address] [place] 54174- 8005 Jul, [facility] [id number] [place] [address] 88265- 6045 Jul, [facility] [id number] [place] [address] 30825- 4468 May, [facility] [id number] [place] [address] 74200- 0931 May, [facility] [id number] [place] [address] 31745- 3683 May, [facility] [id number] [place] [address] 17597- 3249 Apr, [facility] [address] 70035- 8258 Apr, Skin lesion of face 709.9 and Anxiety 300.00 [facility] [address] [place] [id number] [place] [address] 84458- 2309 March, [facility] [address] [id number] [place] [address]- 4902 14 Feb, 2015 [facility] [place] [facility] [address] [id number] [place] [address]- 1172 13 Feb, 2015 [facility] [place] [facility] [address] [id number] [place] [address]- 2328 Jan, [facility] [place] [facility] [address] [id number] [place] [address]- 2408 Jan, [facility] [place] [facility] [address] [id number] [place] [address]- 2794 Jan, [facility] [place] [facility] [address] [id number] [place] [address]- 6696 Jan, [facility] [place] [facility] [address] [id number] [place] [address]- 0081 Jan, [facility] [place] [facility] [address] [id number] [place] [address]- 2020 Jan, [facility] [place] [facility] [address] [id number] [place] [address]- 9038 Dec, [facility] [place] [facility] [address] [id number] [place] [address]- 3185 Dec, [facility] [place] [facility] [address] [id number] [place] [address]- 2811 Nov, [facility] [place] [facility] [address] [id number] [place] [address]- 6987 Nov, [facility] [place] [facility] [address] [id number] [place] [address]- 8595 Oct, [facility] [place] [facility] [address] [id number] [place] [address]- 0333 Oct, [facility] [place] [facility] [address] [id number] [place] [address]- 1996 Oct, [facility] [place] [facility] [address] [id number] [place] [address]- 4928 Oct, [facility] [place] [facility] [address] [id number] [place] [address]- 3079 Sep, [facility] [place] [facility] [address] [id number] [place] [address]- 5046 Sep, [facility] [place] [facility] [address] [id number] [place] 4690 Sep, [facility] [place] [facility] [address] [id number] [place] [address]- 6063 Sep, [facility] [place] [facility] [address] [id number] [place] [address]- 6049 Sep, [facility] [place] [facility] [address] [id number] [place] [address]- 4393 Sep, [facility] [place] [facility] [address] [id number] [place] [address]- 0553 Aug, [facility] [place] [facility] [address] [id number] [address]- 8901 Aug, [facility] [place] [facility] [address] [id number], [place] [address]- 6204 Aug, [facility] [place] [facility] [address] [id number], [place] [address]- 8412 Aug, [facility] [place] [facility] [address] [id number], [place] [address]- 9183 Aug, [facility] [place] [facility] [address] [id number], [place] [address]- 5232 Aug, [facility] [place] [facility] [address] [id number] [place] [address]- 6433 Aug, [facility] [place] [facility] [address] [id number], [place] [address]- 8297 Aug, [facility] [place] [facility] [address] [id number] 1428 Aug, [facility] [place] [facility] [address] [id number] [place] [address]- 1953 Aug, [facility] [place] [facility] [address] [id number] [place] [address]- 1067 Jul, [facility] [place] [facility] [address] [id number] [place] [address]- 7544 Jul, [facility] [place] [facility] [address] [id number] [place] [address]- 0086 May, [facility] [place] [facility] [address] [id number] [place] [address]- 9364 May, [facility] [place] [facility] [address] [id number] [place] [address]- 4381 May, [facility] [place] [facility] [address] [id number] [place] [address]- 4336 May, [facility] [place] [facility] [address] [id number] [place] [address]- 8029 May, [facility] [place] [facility] [address] [id number] [place] [address]- 1818 May, [facility] [place] [facility] [address] [id number] [place] [address]- 2048 Apr, [facility] [place] [facility] [address] [id number] [place] [address]- 9759 Apr, [facility] [place] [facility] [address] [id number] [place] [address]- 5694 Apr, [facility] [place] [facility] [address] [id number] [place] [address]- 7516 Apr, [facility] [place] [facility] [address] [id number] [place] [address]- 3341 March, [facility] [place] [facility] [address] [id number] [place] [address]- 6846 March, [facility] [place] [facility] [address] [id number] [place] [address]- 9314 Feb, [facility] [place] [facility] [address] [id number] [place] [address]- 3074 Feb, [facility] [address] [id number] [place] [address]- 4479 Jan, [facility] [place] [facility] [address] [id number] [place] [address]- 2331 Jan, [facility] [place] [facility] [address] [id number] [place] [address]- 5970 Nov, [facility] [address] [id number] [place] [address]- 0125 Nov, [facility] [place] [facility] [address] [id number] [place] [address]- 9837 Nov, [facility] [address] [id number] [place] [address]- 2666 Nov, [facility] [address] [id number] [place] [address]- 6457 Nov, [facility] [address] [id number] [place] [address]- 0696 Nov, [facility] [address] [id number] [place] [address]- 6582 Oct, [facility] [place] [facility] [address] [id number] [place] [address]- 2546 Oct, [facility] [place] [facility] [address] [id number], [place] [address]- 2546 Aug, [facility] [place] [facility] [address] [id number] [place] [address]- 2546 Aug, [facility] [place] [facility] [address] [id number] [place] [address]- 2546 Jul, [facility] [place] [facility] [address] [id number] [place] [address]- 2546 Jun, [facility] [place] [facility] [address] [id number], [place] [address]- 6056 Jun, [facility] [address], [place] [address]- 0836 Jun, [facility] [address], [place] [address]- 8196 Jun, [facility] [id number] [address]- 4602 Jun, [facility] [address], [place] [address]- 5531 Jun, [facility] [address], [place] [address]- 4452 May, [facility] [address], [place] [address]- 6442 March, [facility] [address], [place] [address]- 9264 March, [facility] [address], [place] [address]- 4297 Jan, IMMUNIZATIONS No Known Immunizations SOCIAL HISTORY Never Assessed REASON FOR VISIT pain/trans---DBennettRN, right hip pain, radiating down leg x 1 week PLAN OF CARE Activity Details Follow Up 3 Months Reason:[facility] VITAL SIGNS Height 66 in 2017-09-19 Weight 172 lbs 2017-09-19 Temperature 98.4 degrees Fahrenheit 2017-09-19 Heart Rate 60 bpm 2017-09-19 Respiratory Rate 20 2017-09-19 BMI 27.76 kg/m2 2017-09-19 Blood pressure systolic 140 mmHg 2017-09-19 Blood pressure diastolic 84 mmHg 2017-09-19 MEDICATIONS Medication Instructions Dosage Frequency Start Date End Date Duration Status Zocor 40 MG 1 tablet in the evening Once a day Orally 30 Active Simvastatin 40 mg Orally Once a day TAKE 1 TABLET BY MOUTH EVERY EVENING 24h 90 days Active Carvedilol 6.25 MG Orally 2 times a day TAKE 1 TABLET BY MOUTH TWICE DAILY 12h 90 days Active Ultram 50 mg Orally 3 times a day 1 tablet as needed 8h 28 Active ProAir HFA 108 (90 Base) MCG/ACT Inhalation every 4 hrs 2 puffs as needed 4h Jul, 7 days Active Gabapentin 300 MG Orally 3 times a day 1 capsule 8h 30 days Active Abilify 15 mg Orally Once a day 1 tablet 24h 30 Aug, 2017 30 day(s) Active Sinemet 10-100 mg Orally Three times a day 1 tablet 8h 08 Apr, 2017 90 days Active Depakote 500 mg Orally 3 times a day 1 tablet 8h 22 Aug, 2014 Active Mobic 7.5 MG Orally twice a day 1 tablet 12h 30 days Active MetFORMIN HCl ER 500 mg Orally twice a day 1 tablet twice daily with food 12h 30 Aug, 2017 30 day(s) Active Lisinopril 20 mg Orally Once a day TAKE 1 TABLET BY MOUTH DAILY 24h 90 days Active Baclofen 10 mg Orally Three times a day 1 tablet with food or milk 8h May, Dec, 30 day(s) Active RESULTS Name Result Date Reference Range A1C (IN HOUSE) 2017-09-19 A1C IN HOUSE 5.7 4.3 - 5.6 % Previous A1c 6.0 Lot [id number] Exp date 06/08 PROCEDURES Procedure Date Ordered Result Body Site GLYCATED HEMOGLOBIN TEST Sep 19, 2017 [facility] VISIT ESTABLISHED PATIENT Sep 19, 2017 INSTRUCTIONS MEDICATIONS ADMINISTERED No Known Medications MEDICAL [...]
--- OUTSIDE RECORDS SUMMARY | 2018-05-04 20:15 | XMS REPORT ---
Author Author JAMESCHERIEARTEMIO Organization [facility] Address [address] [place] [address] Care Team Providers Care Policy Loan Calculator Name Role Phone RAMIREZARTEMIO Rizo Unavailable PROBLEMS Type Condition ICD9-CM Code CUO66-NQ Code Onset Dates Condition Status SNOMED Code Problem Coronary atherosclerosis due to lipid rich plaque I25.83 Active 755084639045127 Problem Other chronic pain G89.29 Active 29107920 Problem Atherosclerotic heart disease of [place] coronary artery without angina pectoris I25.10 Active 250922167 Problem Acute right-sided low back pain with right-sided sciatica M54.41 Active 452119492 Problem Lumbar spondylosis M47.816 Active 777510417 Problem Parkinsons disease G20 Active 32904748 Problem Cervical stenosis of spine M48.02 Active 44039790 Problem 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 Active 057698417 Problem Hypercholesterolemia E78.0 Active 09013864 Problem Pure hypercholesterolemia E78.00 Active 813581829 Problem Depression F32.9 Active 98454933 Problem Pre-ulcerative calluses L84 Active 60014208 Problem Type 2 diabetes mellitus with other specified complication E11.69 Active 6997064 Problem Anxiety F41.9 Active 91704104 Problem HTN (hypertension) I10 Active 81466508 Problem Cervicalgia M54.2 Active [id number] ALLERGIES No Information ENCOUNTERS Encounter Location Date Diagnosis [facility] [id number], [place] [address] Apr, [facility] [address], [place] [address] Feb, Cervicalgia M54.2 [facility] [id number], [place] [address] 27[address] Feb, Cervical stenosis of spine M48.02 [facility] [id number] [place] [address] 44453- 9137 Jan, Cervicalgia M54.2 [facility] [id number] [place] [address] 74445- 8599 Jan, Acute right-sided low back pain with right-sided sciatica M54.41 [place] [address] [address]687- 2168 Dec, Cervicalgia M54.2 [facility] [address] [address]252- 0220 Dec, Controlled substance agreement signed Z79.899 [place] [address] 261255- 2654 Oct, Cervicalgia M54.2 [place] [address] 05866- 2685 Oct, Acute right-sided low back pain with right-sided sciatica M54.41 [facility] [id number] [place] [address] 45028- 9643 Oct, [place] [facility] [address] 41262- 6276 Sep, Cervicalgia M54.2 [facility] [id number] [place] [address] 10740- 3854 14 Sep, 2017 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 [place] [facility] [id number] [place] [address] 42006- 5817 13 Sep, 2017 Lumbar back pain with radiculopathy affecting right lower extremity M54.17 [facility] [id number] [place] [address] 44271- 5771 03 Sep, 2017 Acute right-sided low back pain with right-sided sciatica M54.41 [facility] [id number] [place] [address] 63979- 6860 30 Aug, 2017 Type 2 diabetes mellitus with other specified complication E11.69 ; HTN (hypertension) I10 ; Cervicalgia M54.2 ; Cervical stenosis of spine M48.02 ; Acute right hip pain M25.551 ; Atherosclerotic heart disease of [place] coronary artery without angina pectoris I25.10 ; Hypercholesterolemia E78.0 ; Parkinsons disease G20 and Depression F32.9 [facility] [id number] [place] [address] 59396- 0054 Aug, Other chronic pain G89.29 [facility] [address] 47713- 1239 Jul, Other chronic pain G89.29 [facility] [address] 15480- 1513 Jul, [facility] [address] [address] Jul, Cough R05 and Bronchitis J40 [facility] [address] 52022- 8121 Jun, Other chronic pain G89.29 [facility] [address] 00006- 9992 Jun, [facility] [address] 62237- 8097 Jun, Atherosclerotic heart disease of [place] coronary artery without angina pectoris I25.10 and Cervicalgia M54.2 [facility] [id number] [place] [address] 46297- 8718 Jun, Cervicalgia M54.2 [facility] [id number] [place] [address] 02485- 4694 May, Other chronic pain G89.29 [facility] [address] 02781- 4148 May, [facility] [address] 97860- 8254 May, [facility] [address] 40688- 1369 May, [facility] [address], [place] [address] 5018 May, [facility] [id number] [place] [address] 54234- 2702 May, Type 2 diabetes mellitus with other specified complication E11.69 ; HTN (hypertension) I10 ; Atherosclerotic heart disease of [place] coronary artery without angina pectoris I25.10 ; Parkinsons disease G20 and Cervical stenosis of spine M48.02 [facility] [address] [place] [address] 58092- 6777 Apr, Cervicalgia M54.2 [facility] [id number] [place] [address] 91935- 8580 Apr, Type 2 diabetes mellitus with other specified complication E11.69 ; HTN (hypertension) I10 ; Depression F32.9 ; Atherosclerotic heart disease of [place] coronary artery without angina pectoris I25.10 ; Coronary atherosclerosis due to lipid rich plaque I25.83 ; Cervicalgia M54.2 ; Parkinsons disease G20 ; Chronic diarrhea K52.9 and Pure hypercholesterolemia E78.00 [place] [id number] [place] [address] 84931- 9628 March, Other chronic pain G89.29 [place] [id number] [place] [address] 20382- 9238 March, Other chronic pain G89.29 [facility] [id number] [place] [address] 76814- 0898 Feb, Cervical stenosis of spine M48.02 [facility] [address], [place] [address] 3568 Feb, Other chronic pain G89.29 [facility] [id number] [place] [address] 26244- 6694 Jan, [facility] [id number] [place] [address] 88368- 7193 Jan, Other chronic pain G89.29 [facility] [id number] [place] [address] 61657- 3902 Jan, Other chronic pain G89.29 [place] [address] 12577- 6469 Jan, Type 2 diabetes mellitus with other specified complication E11.69 ; Atherosclerotic heart disease of [place] coronary artery without angina pectoris I25.10 ; Anxiety F41.9 ; HTN (hypertension) I10 ; Depression F32.9 ; Coronary atherosclerosis due to lipid rich plaque I25.83 ; Cervicalgia M54.2 ; Other chronic pain G89.29 and Functional 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 [place] [address] 54962- 5212 Nov, HTN (hypertension) I10 [place] [address] 45694- 0729 Nov, Type 2 diabetes mellitus with other specified complication E11.69 ; Atherosclerotic heart disease of [place] coronary artery without angina pectoris I25.10 ; Hypercholesterolemia E78.0 ; Anxiety F41.9 ; Depression F32.9 ; Cervicalgia M54.2 and Functional 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 [facility] [address] 43929- 9241 Oct, [place] [id number] [place] [address] 41879- 2810 Oct, Neck pain M54.2 [facility] [id number] [place] [address] 16376- 6660 Sep, [facility] [id number] [place] [address] 02624- 1917 Aug, [facility] [address] 46327- 3805 Aug, [facility] [id number] [place] [address] 93405 -8248 Jul, Visit for TB skin test Z11.1 and Screening for tuberculosis Z11.1 [place] [address], [place] [address] 3331 May, [facility] [address], [place] [address]- 6705 May, Neck pain M54.2 [facility] [address], [place] [address]- 8603 May, [facility] [id number] [place] [address] 49650- 5791 Apr, Neck pain M54.2 [facility] [id number] [place] [address] 00867- 4229 Feb, Neck pain M54.2 [facility] [id number] [place] [address] 28251- 8732 Feb, [facility] [id number] [place] [address] 19189- 6044 Jan, Neck pain M54.2 [facility] [address] [place] [address] 32069- 5674 Jan, [facility] [id number] [place] [address] 84917- 9583 Jan, Neck pain M54.2 [facility] [address], [place] [address]- 6979 Jan, Neck pain M54.2 ; Type 2 diabetes mellitus with other specified complication E11.69 ; CAD (coronary artery disease) 414.00 ; Insomnia 780.52 ; Anxiety F41.9 ; Depression F32.9 ; Pre-ulcerative calluses L84 and Hypercholesterolemia E78.0 [facility] [address], [place] [address]- 5424 Nov, [facility] [address], [place] [address]- 9111 Nov, Type 2 diabetes mellitus with other specified complication E11.69 ; Pre-ulcerative calluses L84 ; HTN (hypertension) I10 ; Hypercholesterolemia E78.0 ; Anxiety F41.9 ; Depression F32.9 ; Environmental allergies Z91.09 and Osteoarthritis M19.90 [place] [address] 70917- 0476 Sep, [place] [id number] [place] [address] 03232- 7696 Aug, Allergic rhinitis, seasonal J30.2 [place] [address] 52476- 3813 Jul, [place] [address] 31505- 1001 Jul, Other specified cardiac dysrhythmias 427.89 ; Essential hypertension, benign 401.1 ; Nondependent tobacco use disorder 305.1 ; Unspecified hereditary and idiopathic peripheral neuropathy 356.9 ; Diabetes mellitus without mention of complication, type II or unspecified type, not stated as uncontrolled 250.00 ; CAD (coronary artery disease) 414.00 ; Insomnia 780.52 and Depression [address] [place] [id number] [place] [address] 97659- 2878 Jul, [address] 37821- 2046 Jul, [place] [address] 27852- 5170 May, [address] 21863- 4493 May, [facility] [id number] [place] [address] 23250- 7570 May, [place] [address] 14864- 9008 Apr, [address] 70909- 7539 Apr, Skin lesion of face 709.9 and Anxiety 300.[address] 55955- 0796 March, [facility] [place] [facility] [address] [id number] [place] [address]- 5184 Feb, [facility] [place] [facility] [address] [id number] [place] [address]- 7329 Feb, [facility] [place] [facility] [address] [id number] [place] [address]- 1399 Jan, [facility] [place] [facility] [address] [id number] [place] [address]- 6995 Jan, [facility] [place] [facility] [address] [id number] [place] [address]- 1526 Jan, [facility] [place] [facility] [address] [id number] [place] [address]- 7589 Jan, [facility] [place] [facility] [address] [id number] [place] [address]- 6464 Jan, [facility] [place] [facility] [address] [id number] [place] [address]- 0344 Jan, [facility] [place] [facility] [address] [id number] [place] [address]- 9334 Dec, [facility] [place] [facility] [address] [id number] [place] [address]- 4355 Dec, [facility] [place] [facility] [address] [id number] [place] [address]- 0991 Nov, [facility] [place] [facility] [address] [id number] [place] [address]- 0750 Nov, [facility] [place] [facility] [address] [id number] [place] [address]- 8606 Oct, [facility] [place] [facility] [address] [id number] [place] [address]- 0082 Oct, [facility] [place] [facility] [address] [id number] [place] [address]- 2097 Oct, [facility] [place] [facility] [address] [id number] [place] [address]- 8273 Oct, [facility] [place] [facility] [address] [id number] [place] [address]- 5636 Sep, [facility] [place] [facility] [address] [id number] [place] [address]- 9986 Sep, [facility] [place] [facility] [address] [id number] [place] [address]- 5548 Sep, [facility] [place] [facility] [address] [id number] [place] [address]- 4890 Sep, [facility] [place] [facility] [address] [id number] [place] [address]- 9241 Sep, [facility] [place] [facility] [address] [id number] [place] [address]- 8597 Sep, [facility] [place] [facility] [address] [id number] [place] [address]- 4331 Aug, [facility] [place] [facility] [address] [id number] [place] [address]- 1635 Aug, [facility] [place] [facility] [address] [id number] [place] [address]- 0373 Aug, [facility] [place] [facility] [address] [id number] [place] [address]- 1111 Aug, [facility] [place] [facility] [address] [id number] [place] [address]- 8189 Aug, [facility] [place] [facility] [address] [id number] [place] [address]- 4366 Aug, [facility] [place] [facility] [address] [id number] [place] [address]- 8041 Aug, [facility] [place] [facility] [address] [id number] [place] [address]- 5550 Aug, [facility] [place] [facility] [address] [id number] [place] 0317 Aug, [facility] [place] [facility] [address] [id number] [place] [address]- 9449 Aug, [facility] [place] [facility] [address] [id number] [place] [address]- 3832 Jul, [facility] [place] [facility] [address] [id number] [place] [address]- 3270 Jul, [facility] [place] [facility] [address] [id number] [place] [address]- 7407 May, [facility] [place] [facility] [address] [id number] [place] 6492 May, [facility] [place] [facility] [address] [id number] [place] [address]- 9913 May, [facility] [place] [facility] [address] [id number] [place] [address]- 6654 May, [facility] [place] [facility] [address] [id number] [place] [address]- 9097 May, [facility] [place] [facility] [address] [id number] [place] [address]- 5565 May, [facility] [place] [facility] [address] [id number] [place] [address]- 1584 Apr, [facility] [place] [facility] [address] [id number] [place] [address]- 5452 Apr, [facility] [place] [facility] [address] [id number] [place] [address]- 8697 Apr, [facility] [place] [facility] [address] [id number] [place] [address]- 3560 Apr, [facility] [place] [facility] [address] [id number] [place] [address]- 1710 March, [facility] [place] [facility] [address] [id number] [place] [address]- 0442 March, [facility] [place] [facility] [address] [id number] [place] [address]- 0326 Feb, [facility] [address] [id number] [place] [address]- 5858 Feb, [facility] [place] [facility] [address] [id number] [place] [address]- 6421 Jan, [facility] [place] [facility] [address] [id number] [place] [address]- 1335 Jan, [facility] [place] [facility] [address] [id number] [place] [address]- 0154 Nov, [facility] [place] [facility] [address] [id number] [place] [address]- 8198 Nov, [facility] [place] [facility] [address] [id number] [place] [address]- 6154 Nov, [facility] [address] [id number] [place] [address]- 5347 Nov, [facility] [place] [facility] [address] [id number] [place] [address]- 2545 Nov, [facility] [address] [id number] [place] [address]- 1474 Nov, [facility] [place] [facility] [address] [id number] [place] [address]- 3417 Oct, [facility] [place] [facility] [address] [id number] [address]- 7017 Oct, [facility] [place] [facility] [address] [id number], [place] [address]- 1196 Aug, [facility] [place] [facility] [address] [id number] [place] [address]- 7116 Aug, [facility] [place] [facility] [address] [id number] [place] [address]- 9336 Jul, [facility] [place] [facility] [address] [id number], [place] [address]- 5833 Jun, [facility] [place] [facility] [id number] [address]- 2786 Jun, [facility] [id number] [address]- 0336 Jun, [facility] [address] [facility] [id number], [place] [address]- 7186 Jun, [facility] [id number] [address]- 7656 Jun, [facility] [address] [facility] [id number], [place] [address]- 9995 Jun, [facility] [address], [place] [address]- 3443 May, [facility] [address], [place] [address]- 9495 March, [facility] [address], [place] [address]- 8381 March, [facility] [id number] [address]- 6257 Jan, IMMUNIZATIONS No Known Immunizations SOCIAL HISTORY Never Assessed REASON FOR VISIT Controlled Med Refill PLAN OF CARE VITAL SIGNS MEDICATIONS Medication Instructions Dosage Frequency Start Date End Date Duration Status Ultram 50 mg Orally 3 times a day 1 tablet as needed 8h 28 Active RESULTS No Results PROCEDURES No Known [...]
--- OUTSIDE RECORDS SUMMARY | 2018-05-04 20:15 | XMS REPORT ---
Author Author NILAM Lomax Organization [facility] Address [address] [place] [address] Care Team Providers Care Geospatial Engineer Name Role Phone Dami NILAM Unavailable PROBLEMS Type Condition ICD9-CM Code [id number] Code Onset Dates Condition Status SNOMED Code Problem Coronary atherosclerosis due to lipid rich plaque I25.83 Active 294192939708581 Problem Other chronic pain G89.29 Active 21179484 Problem Atherosclerotic heart disease of [place] coronary artery without angina pectoris I25.10 Active 221883030 Problem Acute right-sided low back pain with right-sided sciatica M54.41 Active 476655386 Problem Lumbar spondylosis M47.816 Active 461188670 Problem Parkinsons disease G20 Active 68345467 Problem Cervical stenosis of spine M48.02 Active 42444796 Problem 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 Active 457999358 Problem Hypercholesterolemia E78.0 Active 05025301 Problem Pure hypercholesterolemia E78.00 Active 125035120 Problem Depression F32.9 Active 70331231 Problem Pre-ulcerative calluses L84 Active 77417970 Problem Type 2 diabetes mellitus with other specified complication E11.69 Active 9023765 Problem Anxiety F41.9 Active 75284694 Problem HTN (hypertension) I10 Active 45647452 Problem Cervicalgia M54.2 Active [id number] ALLERGIES No Known Allergies ENCOUNTERS Encounter Location Date Diagnosis [facility] [id number], [place] [address] March, [facility] [id number] [address] Jan, [facility] [id number] [address] Jan, [facility] [id number] [place] [address] 25700- 1854 Dec, Cervicalgia M54.2 [facility] [id number] [place] [address] 73289- 0374 02 Dec, 2017 Controlled substance agreement signed Z79.899 [facility] [facility] [id number] [place] [address] 68840- 1841 Oct, Cervicalgia M54.2 [facility] [facility] [id number] [place] [address] 81300- 6648 Oct, Acute right-sided low back pain with right-sided sciatica M54.41 [facility] [facility] [id number] [place] [address] 83803- 5673 Oct, [facility] [id number] [place] [address] 35216- 4194 Sep, Cervicalgia M54.2 [facility] [id number] [place] [address] 05065- 7578 14 Sep, 2017 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 [facility] [id number] [place] [address] 48748- 4204 13 Sep, 2017 Lumbar back pain with radiculopathy affecting right lower extremity M54.17 [facility] [id number] [place] [address] 35592- 4008 03 Sep, 2017 Acute right-sided low back pain with right-sided sciatica M54.41 [facility] [id number] [place] [address] 06749- 3525 30 Aug, 2017 Type 2 diabetes mellitus with other specified complication E11.69 ; HTN (hypertension) I10 ; Cervicalgia M54.2 ; Cervical stenosis of spine M48.02 ; Acute right hip pain M25.551 ; Atherosclerotic heart disease of [place] coronary artery without angina pectoris I25.10 ; Hypercholesterolemia E78.0 ; Parkinsons disease G20 and Depression F32.9 [facility] [facility] [id number] [place] [address] 41897- 3362 Aug, Other chronic pain G89.29 [facility] [id number], [place] [address] 4678 27 Jul, 2017 Other chronic pain G89.29 [facility] [id number], [place] [address] 9248 21 Jul, 2017 [facility] [id number], [place] [address] 19 Jul, 2017 Cough R05 and Bronchitis J40 [facility] [id number], [place] [address]- 6576 30 Jun, 2017 Other chronic pain G89.29 [facility] [id number] [place] [address] 56813- 7916 Jun, [facility] [address], [place] [address] 4680 Jun, Atherosclerotic heart disease of [place] coronary artery without angina pectoris I25.10 and Cervicalgia M54.2 [facility] [id number], [place] [address] 7450 Jun, Cervicalgia M54.2 [facility] [id number] [place] [address] 58696- 9995 May, Other chronic pain G89.29 [facility] [id number], [place] [address] 2510 May, [facility] [id number], [place] [address]- 4281 May, [facility] [id number], [place] [address]- 9062 May, [facility] [address], [place] [address]- 6214 May, [facility] [address], [place] [address]- 1575 May, Type 2 diabetes mellitus with other specified complication E11.69 ; HTN (hypertension) I10 ; Atherosclerotic heart disease of [place] coronary artery without angina pectoris I25.10 ; Parkinsons disease G20 and Cervical stenosis of spine M48.02 [place] [id number] [place] [address] 37139- 8141 Apr, Cervicalgia M54.2 [facility] [id number] [place] [address] 93146- 6397 Apr, Type 2 diabetes mellitus with other specified complication E11.69 ; HTN (hypertension) I10 ; Depression F32.9 ; Atherosclerotic heart disease of [place] coronary artery without angina pectoris I25.10 ; Coronary atherosclerosis due to lipid rich plaque I25.83 ; Cervicalgia M54.2 ; Parkinsons disease G20 ; Chronic diarrhea K52.9 and Pure hypercholesterolemia E78.00 [facility] [id number] [place] [address] 88717- 5927 March, Other chronic pain G89.29 [place] [address] 62896- 2958 March, Other chronic pain G89.29 [facility] [id number] [place] [address] 85578- 4613 Feb, Cervical stenosis of spine M48.02 [facility] [facility] [id number] [place] [address] 26738- 4820 Feb, Other chronic pain G89.29 [facility] [facility] [id number] [place] [address] 20470- 9873 Jan, [facility] [facility] [id number] [place] [address] 81645- 5276 Jan, Other chronic pain G89.29 [facility] [facility] [id number] [place] [address] 82164- 1050 Jan, Other chronic pain G89.29 [facility] [id number] [place] [address] 08801- 6195 Jan, Type 2 diabetes mellitus with other specified complication E11.69 ; Atherosclerotic heart disease of [place] coronary artery without angina pectoris I25.10 ; Anxiety F41.9 ; HTN (hypertension) I10 ; Depression F32.9 ; Coronary atherosclerosis due to lipid rich plaque I25.83 ; Cervicalgia M54.2 ; Other chronic pain G89.29 and Functional 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 [facility] [id number] [place] [address] 31303- 2742 10 Nov, 2016 HTN (hypertension) I10 [place] [address] 86236- 4234 03 Nov, 2016 Type 2 diabetes mellitus with other specified complication E11.69 ; Atherosclerotic heart disease of [place] coronary artery without angina pectoris I25.10 ; Hypercholesterolemia E78.0 ; Anxiety F41.9 ; Depression F32.9 ; Cervicalgia M54.2 and Functional 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 [facility] [id number] [place] [address] 50501- 3355 Oct, [place] [address] 79873- 7334 Oct, Neck pain M54.2 [place] [id number] [place] [address] 13638- 5968 Sep, [place] [id number] [place] [address] 16963- 8592 Aug, [facility] [id number] [place] [address] 30749- 0870 Aug, [facility] [id number] [place] [address] 99154 -6194 Jul, Visit for TB skin test Z11.1 and Screening for tuberculosis Z11.1 [facility] [address] 33347- 1284 May, [facility] [id number] [place] [address] 21094- 3276 May, Neck pain M54.2 [facility] [address] 40621- 6596 May, [facility] [address], [place] [address]- 3887 Apr, Neck pain M54.2 [facility] [id number] [place] [address] 230321- 8431 Feb, Neck pain M54.2 [facility] [id number] [place] [address] 70767- 4716 Feb, [facility] [id number] [place] [address] 35400- 2051 Jan, Neck pain M54.2 [place] [id number] [place] [address] 44120- 7882 Jan, [facility] [id number] [place] [address] 98056- 7125 Jan, Neck pain M54.2 [place] [id number] [place] [address] 91836- 0931 Jan, Neck pain M54.2 ; Type 2 diabetes mellitus with other specified complication E11.69 ; CAD (coronary artery disease) 414.00 ; Insomnia 780.52 ; Anxiety F41.9 ; Depression F32.9 ; Pre-ulcerative calluses L84 and Hypercholesterolemia E78.0 [address] [id number] [place] [address] 40864- 8113 Nov, [place] [id number] [place] [address] 02732- 5855 Nov, Type 2 diabetes mellitus with other specified complication E11.69 ; Pre-ulcerative calluses L84 ; HTN (hypertension) I10 ; Hypercholesterolemia E78.0 ; Anxiety F41.9 ; Depression F32.9 ; Environmental allergies Z91.09 and Osteoarthritis M19.90 [facility] [address], [place] [address]- 2253 Sep, [place] [id number] [place] [address] 21781- 1235 Aug, Allergic rhinitis, seasonal J30.2 [facility] [id number] [place] [address] 30041- 1714 Jul, [facility] [address] 73861- 2751 Jul, Other specified cardiac dysrhythmias 427.89 ; Essential hypertension, benign 401.1 ; Nondependent tobacco use disorder 305.1 ; Unspecified hereditary and idiopathic peripheral neuropathy 356.9 ; Diabetes mellitus without mention of complication, type II or unspecified type, not stated as uncontrolled 250.00 ; CAD (coronary artery disease) 414.00 ; Insomnia 780.52 and Depression 311 [facility] [address] 21385- 4748 Jul, [facility] [address] 64895- 8910 Jul, [facility] [address] 61855- 4184 May, [facility] [address] 34608- 7087 May, [facility] [address] 82514- 8231 May, [facility] [id number] [place] [address] 91830- 2188 Apr, [facility] [address] 20531- 2009 Apr, Skin lesion of face 709.9 and Anxiety 300.00 [facility] [id number] [place] [address] 76846- 6273 March, [facility] [address] 54640- 9032 Feb, [facility] [id number] [place] [address] 03370- 1407 Feb, [facility] [address] 22508- 5334 Jan, [facility] [place] [facility] [address] [id number] [place] [address]- 4470 Jan, [facility] [place] [facility] [address] [id number] [place] [address]- 3045 Jan, [facility] [place] [facility] [address] [facility] [id number] [place] [address]- 6320 Jan, [facility] [place] [facility] [address] [id number] [place] [address]- 8687 Jan, [facility] [place] [facility] [address] [id number] [place] [address]- 9807 Jan, [facility] [place] [facility] [address] [id number] [place] [address]- 2597 Dec, [facility] [place] [facility] [address] [id number] [place] [address]- 2650 Dec, [facility] [place] [facility] [address] [facility] [id number] [place] [address]- 5461 Nov, [facility] [place] [facility] [address] [id number] [place] [address]- 7399 Nov, [facility] [place] [facility] [address] [facility] [id number] [place] [address]- 7858 Oct, [facility] [place] [facility] [address] [id number] [place] [address]- 3260 Oct, [facility] [place] [facility] [address] [facility] [id number] [place] [address]- 5293 Oct, [facility] [place] [facility] [address] [id number] [place] [address]- 4452 Oct, [facility] [place] [facility] [address] [facility] [id number] [place] [address]- 9132 Sep, [facility] [place] [facility] [address] [facility] [id number] [place] [address]- 2370 Sep, [facility] [place] [facility] [address] [id number] [place] [address]- 4484 Sep, [facility] [place] [facility] [address] [id number] [place] [address]- 3889 Sep, [facility] [place] [facility] [address] [id number] [place] [address]- 4555 Sep, [facility] [place] [facility] [address] [id number] [place] [address]- 7676 Sep, [facility] [place] [facility] [address] [id number] [place] [address]- 0677 Aug, [facility] [place] [facility] [address] [id number] [place] [address]- 3903 Aug, [facility] [place] [facility] [address] [id number] [place] [address]- 3396 Aug, [facility] [place] [facility] [address] [id number] [place] [address]- 0122 Aug, [facility] [place] [facility] [address] [id number] [place] [address]- 8211 Aug, [facility] [place] [facility] [address] [id number] [place] [address]- 5459 Aug, [facility] [place] [facility] [address] [id number] [place] [address]- 6167 Aug, [facility] [place] [facility] [address] [id number] [place] [address]- 3379 Aug, [facility] [place] [facility] [address] [id number] [place] [address]- 3202 Aug, [facility] [place] [facility] [address] [id number] [place] [address]- 5512 Aug, [facility] [place] [facility] [address] [id number] [place] [address]- 9114 05 Jul, 2014 [facility] [place] [facility] [address] [id number] [place] [address]- 7895 Jul, [facility] [place] [facility] [address] [id number] [place] 3732 May, [facility] [place] [facility] [address] [id number] [place] [address]- 4151 May, [facility] [place] [facility] [address] [id number] [place] [address]- 5540 May, [facility] [place] [facility] [address] [id number] [place] [address]- 3938 May, [facility] [place] [facility] [address] [id number] [place] 5850 May, [facility] [place] [facility] [address] [id number] [place] [address]- 8392 May, [facility] [place] [facility] [address] [id number] [place] [address]- 4032 Apr, [facility] [place] [facility] [address] [id number] [place] [address]- 9228 Apr, [facility] [place] [facility] [address] [id number] [place] [address]- 2469 Apr, [facility] [place] [facility] [address] [id number] [place] [address]- 5148 Apr, [facility] [place] [facility] [address] [id number] [place] [address]- 3934 March, [facility] [place] [facility] [address] [id number] [place] [address]- 1798 March, [facility] [place] [facility] [address] [id number] [place] [address]- 4420 Feb, [facility] [place] [facility] [address] [id number] [place] [address]- 9774 Feb, [facility] [place] [facility] [address] [id number] [place] [address]- 7005 Jan, [facility] [place] [facility] [address] [id number] [place] [address]- 2611 Jan, [facility] [address] [id number] [place] [address]- 3657 Nov, [facility] [address] [id number] [place] [address]- 9253 Nov, [facility] [address] [id number] [place] [address]- 6237 Nov, [facility] [address] [id number] [place] [address]- 6514 Nov, [facility] [address] [id number] [place] [address]- 9232 Nov, [facility] [address] [id number] [place] [address]- 7048 Nov, [facility] [address] [id number] [place] [address]- 3982 Oct, [facility] [address] [id number] [place] [address]- 1578 Oct, [facility] [address] [id number] [place] [address]- 1157 Aug, [facility] [address] [id number] [place] [address]- 6562 Aug, [facility] [address] [id number] [place] [address]- 6797 Jul, [facility] [address] [id number] [place] [address]- 7803 Jun, [facility] [place] [facility] [address] [id number] [place] [address]- 5031 Jun, [facility] [place] [facility] [address] [id number] [place] [address]- 4596 Jun, [facility] [place] [facility] [address] [id number] [place] [address]- 3935 Jun, [facility] [address] [facility] [id number], [place] [address]- 2546 Jun, [facility] [address] [facility] [id number], [place] [address]- 2546 Jun, [facility] [address] [facility] [id number], [place] [address] 2546 May, [facility] [address] [facility] [id number], [place] [address]- 2546 March, [facility] [address] [facility] [id number], [place] [address]- 2546 March, [facility] [address] [facility] [id number], [place] [address] 2546 Jan, IMMUNIZATIONS No Known Immunizations SOCIAL HISTORY Never Assessed REASON FOR VISIT Parkinson's and PT is needing a note for [place] to operate on his right hand- [place] PLAN OF CARE Activity Details Follow Up 3 Months Reason:cad, htn VITAL SIGNS Height 66 in 2017-05-26 Weight 174.2 lbs 2017-05-26 Temperature 98.1 degrees Fahrenheit 2017-05-26 Heart Rate 64 bpm 2017-05-26 Respiratory Rate 18 2017-05-26 BMI 28.11 kg/m2 2017-05-26 Blood pressure systolic 122 mmHg 2017-05-26 Blood pressure diastolic 70 mmHg 2017-05-26 MEDICATIONS Medication Instructions Dosage Frequency Start Date End Date Duration Status Simvastatin 40 MG TAKE 1 TABLET BY MOUTH EVERY EVENING 30 Active Ultram 50 mg Orally 3 times a day 1 tablet as needed 8h Nov, Active Claritin 10 MG 1 tablet Once a day Orally Active Coreg 6.25 MG take 1 tablet (6.25 mg) by oral route 2 times per day with food Jan, Active Sinemet 10-100 mg Orally Three times a day 1 tablet 8h Apr, 30 day(s) Active RESULTS No Results PROCEDURES Procedure Date Ordered Result Body Site EKG, TRACING (IN-HOUSE) 2017-05-26 N/A ELECTROCARDIOGRAM, TRACING May 26, 2017 [facility] VISIT ESTABLISHED PATIENT May 26, 2017 INSTRUCTIONS MEDICATIONS ADMINISTERED No Known Medications [...]
--- OUTSIDE RECORDS SUMMARY | 2018-05-04 20:16 | XMS REPORT ---
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 Name Role Phone Dami NILAM Unavailable PROBLEMS Type Condition ICD9-CM Code [id number] Code Onset Dates Condition Status SNOMED Code Problem Coronary atherosclerosis due to lipid rich plaque I25.83 Active [id number] Problem Other chronic pain G89.29 Active 42665304 Problem Atherosclerotic heart disease of [place] coronary artery without angina pectoris I25.10 Active 144579949 Problem Acute right-sided low back pain with right-sided sciatica M54.41 Active 330019843 Problem Lumbar spondylosis M47.816 Active 244574589 Problem Parkinsons disease G20 Active 55045211 Problem Cervical stenosis of spine M48.02 Active 62360775 Problem 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 Active 061490143 Problem Hypercholesterolemia E78.0 Active 77824727 Problem Pure hypercholesterolemia E78.00 Active 402671330 Problem Depression F32.9 Active 35425517 Problem Pre-ulcerative calluses L84 Active 88444297 Problem Type 2 diabetes mellitus with other specified complication E11.69 Active 8636295 Problem Anxiety F41.9 Active 93756184 Problem HTN (hypertension) I10 Active 94266940 Problem Cervicalgia M54.2 Active [id number] ALLERGIES No Information ENCOUNTERS Encounter Location Date Diagnosis [facility] [id number] [address] March, [facility] [address] [address] Feb, Cervicalgia M54.2 [facility] [id number], [place] [address] 3[address] Feb, Cervical stenosis of spine M48.02 [facility] [id number] [place] [address]54- 7537 Jan, Cervicalgia M54.2 [facility] [address] [address]- [address] Jan, [facility] [id number] [place] [address] 00572- 7972 Dec, Cervicalgia M54.2 [facility] [id number] [place] [address] 22597- 3544 Dec, Controlled substance agreement signed Z79.899 [facility] [address] 23951- 3059 Oct, Cervicalgia M54.2 [facility] [id number] [place] [address] 88335- 0206 Oct, Acute right-sided low back pain with right-sided sciatica M54.41 [facility] [id number] [place] [address] 69531- 0662 Oct, [facility] [id number] [place] [address] 61395- 3551 28 Sep, 2017 Cervicalgia M54.2 [facility] [id number] [place] [address] 02538- 8855 14 Sep, 2017 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 [facility] [id number] [place] [address] 88251- 7626 13 Sep, 2017 Lumbar back pain with radiculopathy affecting right lower extremity M54.17 [facility] [id number] [place] [address] 53918- 3489 03 Sep, 2017 Acute right-sided low back pain with right-sided sciatica M54.41 [facility] [id number] [place] [address] 94295- 6385 30 Aug, 2017 Type 2 diabetes mellitus with other specified complication E11.69 ; HTN (hypertension) I10 ; Cervicalgia M54.2 ; Cervical stenosis of spine M48.02 ; Acute right hip pain M25.551 ; Atherosclerotic heart disease of [place] coronary artery without angina pectoris I25.10 ; Hypercholesterolemia E78.0 ; Parkinsons disease G20 and Depression F32.9 [facility] [id number] [place] [address] 08987- 6578 Aug, Other chronic pain G89.29 [facility] [id number] [place] [address] 62209- 2288 Jul, Other chronic pain G89.29 [facility] [id number] [place] [address] 13712- 0590 Jul, [facility] [id number] [place] [address] 57769 -9526 Jul, Cough R05 and Bronchitis J40 [facility] [id number] [place] [address] 37454- 0160 Jun, Other chronic pain G89.29 [facility] [id number] [place] [address] 83317- 5982 Jun, [facility] [id number] [place] [address] 74372- 2115 Jun, Atherosclerotic heart disease of [place] coronary artery without angina pectoris I25.10 and Cervicalgia M54.2 [facility] [id number] [place] [address] 05838- 8080 Jun, Cervicalgia M54.2 [facility] [id number] [place] [address] 55858- 0379 May, Other chronic pain G89.29 [facility] [id number] [place] [address] 90297- 9595 May, [facility] [id number] [place] [address] 35212- 0547 May, [facility] [id number] [place] [address] 93112- 4137 May, [facility] [address], [place] [address] 6491 May, [facility] [id number] [place] [address] 09561- 6985 May, Type 2 diabetes mellitus with other specified complication E11.69 ; HTN (hypertension) I10 ; Atherosclerotic heart disease of [place] coronary artery without angina pectoris I25.10 ; Parkinsons disease G20 and Cervical stenosis of spine M48.02 [facility] [id number] [address]- 9976 Apr, Cervicalgia M54.2 [facility] [id number] [place] [address] 02076- 7664 Apr, Type 2 diabetes mellitus with other specified complication E11.69 ; HTN (hypertension) I10 ; Depression F32.9 ; Atherosclerotic heart disease of [place] coronary artery without angina pectoris I25.10 ; Coronary atherosclerosis due to lipid rich plaque I25.83 ; Cervicalgia M54.2 ; Parkinsons disease G20 ; Chronic diarrhea K52.9 and Pure hypercholesterolemia E78.00 [facility] [id number] [place] [address] 01481- 7212 March, Other chronic pain G89.29 [facility] [id number] [address] 0835 March, Other chronic pain G89.29 [facility] [id number], [place] [address]- 7344 Feb, Cervical stenosis of spine M48.02 [facility] [address] [address]- 4752 Feb, Other chronic pain G89.29 [facility] [id number] [place] [address] 70831- 1214 Jan, [facility] [address] [address]- 0714 Jan, Other chronic pain G89.29 [facility] [id number] [place] [address] 15467- 8690 08 Jan, 2017 Other chronic pain G89.29 [facility] [id number] [place] [address] 99090- 7781 Jan, Type 2 diabetes mellitus with other specified complication E11.69 ; Atherosclerotic heart disease of [place] coronary artery without angina pectoris I25.10 ; Anxiety F41.9 ; HTN (hypertension) I10 ; Depression F32.9 ; Coronary atherosclerosis due to lipid rich plaque I25.83 ; Cervicalgia M54.2 ; Other chronic pain G89.29 and Functional 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 [facility] [id number] [place] [address] 54940- 5122 Nov, HTN (hypertension) I10 [facility] [id number] [place] [address] 06711- 1916 Nov, Type 2 diabetes mellitus with other specified complication E11.69 ; Atherosclerotic heart disease of [place] coronary artery without angina pectoris I25.10 ; Hypercholesterolemia E78.0 ; Anxiety F41.9 ; Depression F32.9 ; Cervicalgia M54.2 and Functional 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 [facility] [id number] [place] [address] 06684- 9720 Oct, [facility] [id number] [place] [address] 90440- 2296 Oct, Neck pain M54.2 [facility] [id number] [place] [address] 91589- 4494 Sep, [facility] [id number] [place] [address] 41957- 0791 Aug, [facility] [id number] [place] [address] 72354- 0383 Aug, [facility] [address] [place] [address] 83627 -4068 Jul, Screening for tuberculosis Z11.1 and Visit for TB skin test Z11.1 [facility] [address] [place] [address]- 7168 May, [facility] [id number] [place] [address] 32479- 5248 May, Neck pain M54.2 [facility] [address] [place] [address] 05695- 5742 May, [facility] [id number] [place] [address] 47968- 9011 Apr, Neck pain M54.2 [facility] [id number] [place] [address] 54286- 5617 Feb, Neck pain M54.2 [facility] [id number] [place] [address] 69334- 8143 Feb, [facility] [id number] [place] [address] 39750- 0569 Jan, Neck pain M54.2 [facility] [id number] [place] [address] 38791- 6632 Jan, [facility] [id number] [place] [address] 64953- 2996 16 Jan, 2016 Neck pain M54.2 [facility] [address], [place] [address]- 7943 Jan, Neck pain M54.2 ; Type 2 diabetes mellitus with other specified complication E11.69 ; CAD (coronary artery disease) 414.00 ; Insomnia 780.52 ; Anxiety F41.9 ; Depression F32.9 ; Pre-ulcerative calluses L84 and Hypercholesterolemia E78.0 [facility] [address], [place] [address]- 4088 Nov, [facility] [address] [place] [address] 45655- 6563 Nov, Type 2 diabetes mellitus with other specified complication E11.69 ; Pre-ulcerative calluses L84 ; HTN (hypertension) I10 ; Hypercholesterolemia E78.0 ; Anxiety F41.9 ; Depression F32.9 ; Environmental allergies Z91.09 and Osteoarthritis M19.90 [facility] [id number] [place] [address] 56138- 6107 Sep, [facility] [id number] [place] [address] 19224- 1212 Aug, Allergic rhinitis, seasonal J30.2 [facility] [address] 11530- 9768 Jul, [facility] [id number] [place] [address] 95212- 0862 Jul, Other specified cardiac dysrhythmias 427.89 ; Essential hypertension, benign 401.1 ; Nondependent tobacco use disorder 305.1 ; Unspecified hereditary and idiopathic peripheral neuropathy 356.9 ; Diabetes mellitus without mention of complication, type II or unspecified type, not stated as uncontrolled 250.00 ; CAD (coronary artery disease) 414.00 ; Insomnia 780.52 and Depression 311 [facility] [id number] [place] [address] 17877- 2018 Jul, [facility] [id number] [place] [address] 03072- 0013 Jul, [facility] [facility] [address] 04142- 7729 May, [facility] [id number] [place] [address] 93540- 0226 May, [facility] [address] 03002- 8354 May, [facility] [id number] [place] [address] 89585- 4062 Apr, [facility] [facility] [address] 41747- 7857 Apr, Skin lesion of face 709.9 and Anxiety 300.00 [facility] [address] 92802- 5096 March, [facility] [place] [facility] [address] [id number] [place] [address]- 6810 Feb, [facility] [place] [facility] [address] [id number] [place] [address]- 3606 Feb, [facility] [place] [facility] [address] [id number] [place] [address]- 7988 Jan, [facility] [place] [facility] [address] [id number] [place] [address]- 6536 Jan, [facility] [place] [facility] [address] [id number] [place] [address]- 5959 Jan, [facility] [place] [facility] [address] [id number] [place] [address]- 3796 Jan, [facility] [place] [facility] [address] [id number] [place] [address]- 4319 Jan, [facility] [place] [facility] [address] [id number] [place] [address]- 0887 Jan, [facility] [place] [facility] [address] [id number] [place] [address]- 0190 Dec, [facility] [place] [facility] [address] [id number] [place] [address]- 9314 Dec, [facility] [place] [facility] [address] [id number] [place] [address]- 6006 Nov, [facility] [place] [facility] [address] [id number] [place] [address]- 0026 Nov, [facility] [place] [facility] [address] [id number] [place] [address]- 5312 Oct, [facility] [place] [facility] [address] [id number] [place] [address]- 2186 Oct, [facility] [place] [facility] [address] [id number] [place] [address]- 9956 Oct, [facility] [place] [facility] [address] [id number] [place] [address]- 2062 Oct, [facility] [place] [facility] [address] [id number] [place] [address]- 0638 Sep, [facility] [place] [facility] [address] [id number] [place] [address]- 2927 Sep, [facility] [place] [facility] [address] [id number] [place] [address]- 2664 Sep, [facility] [place] [facility] [address] [id number] [place] [address]- 6768 Sep, [facility] [place] [facility] [address] [id number] [place] [address]- 2108 Sep, [facility] [place] [facility] [address] [id number] [place] [address]- 3245 Sep, [facility] [place] [facility] [address] [id number] [place] [address]- 1926 Aug, [facility] [place] [facility] [address] [id number] [place] [address]- 0186 Aug, [facility] [place] [facility] [address] [id number] [place] [address]- 3201 Aug, [facility] [place] [facility] [address] [id number] [place] [address]- 7931 Aug, [facility] [place] [facility] [address] [id number] [place] [address]- 9925 Aug, [facility] [place] [facility] [address] [id number] [address]- 4788 Aug, [facility] [place] [facility] [address] [id number] [place] [address]- 6979 Aug, [facility] [place] [facility] [address] [id number], [place] [address]- 5724 Aug, [facility] [place] [facility] [address] [id number], [place] [address]- 2443 Aug, [facility] [place] [facility] [address] [id number] [place] [address]- 6123 Aug, [facility] [place] [facility] [address] [id number] [place] [address]- 9876 Jul, [facility] [place] [facility] [address] [id number] [place] [address]- 7112 Jul, [facility] [place] [facility] [address] [id number] [place] [address]- 2627 May, [facility] [place] [facility] [address] [id number] [place] [address]- 7204 May, [facility] [place] [facility] [address] [id number] [place] [address]- 9645 May, [facility] [place] [facility] [address] [id number] [place] [address]- 8838 May, [facility] [place] [facility] [address] [id number] [place] [address]- 7759 May, [facility] [place] [facility] [address] [id number] [place] [address]- 1185 May, [facility] [place] [facility] [address] [id number] [place] [address]- 4210 Apr, [facility] [place] [facility] [address] [id number] [place] [address]- 8771 Apr, [facility] [place] [facility] [address] [id number] [place] [address]- 2923 Apr, [facility] [place] [facility] [address] [id number] [place] [address]- 6198 Apr, [facility] [place] [facility] [address] [id number] [place] [address]- 4946 March, [facility] [place] [facility] [address] [id number] [place] [address]- 0535 March, [facility] [place] [facility] [address] [id number] [place] [address]- 3824 Feb, [facility] [place] [facility] [address] [id number] [place] [address]- 6397 Feb, [facility] [place] [facility] [address] [id number] [place] [address]- 8096 Jan, [facility] [place] [facility] [address] [id number] [place] [address]- 6126 Jan, [facility] [place] [facility] [address] [id number] [place] [address]- 6751 Nov, [facility] [place] [facility] [address] [id number] [place] [address]- 8214 Nov, [facility] [place] [facility] [address] [id number] [place] [address]- 0136 Nov, [facility] [place] [facility] [address] [id number] [place] [address]- 4796 Nov, [facility] [place] [facility] [address] [id number], [place] [address]- 6939 Nov, [facility] [place] [facility] [address] [id number], [place] [address]- 9856 Nov, [facility] [place] [facility] [address] [id number], [place] [address]- 0056 Oct, [facility] [place] [facility] [address] [id number], [place] [address]- 2546 Oct, [facility] [place] [facility] [address] [id number], [place] [address]- 2546 Aug, [facility] [place] [facility] [address] [id number], [place] [address]- 2546 Aug, [facility] [place] [facility] [address] [id number], [place] [address]- 2546 Jul, [facility] [place] [facility] [address] [id number], [place] [address]- 2546 Jun, [facility] [place] [facility] [id number] [address]- 0163 Jun, [facility] [id number] 9790 Jun, [facility] [id number] 5304 Jun, [facility] [id number] [address]- 7988 Jun, [facility] [id number] [address]- 2589 Jun, [facility] [id number] 4916 May, [facility] [address] [place] [address]- 2070 March, [facility] [id number] 6913 March, [facility] [id number] [address]- 8702 Jan, IMMUNIZATIONS No Known Immunizations SOCIAL HISTORY Never Assessed REASON FOR VISIT Requests return call PLAN OF CARE VITAL SIGNS MEDICATIONS Unknown [...]
--- OUTSIDE RECORDS SUMMARY | 2018-05-04 20:17 | XMS REPORT ---
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 Name Role Phone RAMIREZARTEMIO Rizo Unavailable PROBLEMS Type Condition ICD9-CM Code QIX99-TK Code Onset Dates Condition Status SNOMED Code Problem Coronary atherosclerosis due to lipid rich plaque I25.83 Active 849551969018142 Problem Other chronic pain G89.29 Active 82116805 Problem Atherosclerotic heart disease of [place] coronary artery without angina pectoris I25.10 Active 140306134 Problem Acute right-sided low back pain with right-sided sciatica M54.41 Active 045268196 Problem Lumbar spondylosis M47.816 Active 055022171 Problem Parkinsons disease G20 Active 71559053 Problem Cervical stenosis of spine M48.02 Active 53259556 Problem 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 Active 021471580 Problem Hypercholesterolemia E78.0 Active 30561270 Problem Pure hypercholesterolemia E78.00 Active 163889765 Problem Depression F32.9 Active 38425592 Problem Pre-ulcerative calluses L84 Active 16792985 Problem Type 2 diabetes mellitus with other specified complication E11.69 Active 1504863 Problem Anxiety F41.9 Active 09826220 Problem HTN (hypertension) I10 Active 29702664 Problem Cervicalgia M54.2 Active [id number] ALLERGIES No Information ENCOUNTERS Encounter Location Date Diagnosis [facility] [id number] [address] Apr, [facility] [address] [address] Feb, Cervicalgia M54.2 [facility] [id number] [address]200 Feb, Cervical stenosis of spine M48.02 [facility] [id number] [place] [address] 19775- 6267 Jan, Cervicalgia M54.2 [facility] [id number] [place] [address] 75755- 8919 Jan, Acute right-sided low back pain with right-sided sciatica M54.41 [place] [address] [address]- 6085 Dec, Cervicalgia M54.2 [facility] [address] [address]207- 1197 Dec, Controlled substance agreement signed Z79.899 [place] [address] 889450- 3045 Oct, Cervicalgia M54.2 [place] [address] [address]478- 1960 Oct, Acute right-sided low back pain with right-sided sciatica M54.41 [place] [id number] [place] [address] 53848- 1089 Oct, [place] [address] 08182- 0136 Sep, Cervicalgia M54.2 [place] [id number] [place] [address] 89765- 2058 14 Sep, 2017 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 [place] [id number] [place] [address] 73132- 0210 13 Sep, 2017 Lumbar back pain with radiculopathy affecting right lower extremity M54.17 [place] [id number] [place] [address] 50352- 0298 03 Sep, 2017 Acute right-sided low back pain with right-sided sciatica M54.41 [place] [id number] [place] [address] 53350- 7505 30 Aug, 2017 Type 2 diabetes mellitus with other specified complication E11.69 ; HTN (hypertension) I10 ; Cervicalgia M54.2 ; Cervical stenosis of spine M48.02 ; Acute right hip pain M25.551 ; Atherosclerotic heart disease of os[place] coronary artery without angina pectoris I25.10 ; Hypercholesterolemia E78.0 ; Parkinsons disease G20 and Depression F32.9 [facility] [id number] [place] [address] 24482- 6568 Aug, Other chronic pain G89.29 [facility] [address] [address]- 1789 Jul, Other chronic pain G89.29 [facility] [address] 53554- 7157 Jul, [facility] [address] [address] -[address]209 Jul, Cough R05 and Bronchitis J40 [facility] [address] [address]- 1378 Jun, Other chronic pain G89.29 [facility] [address] 9[address]- 1384 Jun, [facility] [address] 60114- 6683 Jun, Atherosclerotic heart disease of os[place] coronary artery without angina pectoris I25.10 and Cervicalgia M54.2 [facility] [id number] [place] [address] 20401- 5269 Jun, Cervicalgia M54.2 [facility] [id number] [place] [address] 61967- 1668 May, Other chronic pain G89.29 [facility] [address] 47491- 5215 May, [facility] [address] 46136- 3880 May, [facility] [address] 36352- 0000 May, [facility] [address] [address] 3961 May, [facility] [id number] [place] [address] 85114- 6166 May, Type 2 diabetes mellitus with other specified complication E11.69 ; HTN (hypertension) I10 ; Atherosclerotic heart disease of os[place] coronary artery without angina pectoris I25.10 ; Parkinsons disease G20 and Cervical stenosis of spine M48.02 [facility] [address] [place] [address] 59980- 0600 Apr, Cervicalgia M54.2 [place] [id number] [place] [address] 73578- 6387 Apr, Type 2 diabetes mellitus with other specified complication E11.69 ; HTN (hypertension) I10 ; Depression F32.9 ; Atherosclerotic heart disease of [place] coronary artery without angina pectoris I25.10 ; Coronary atherosclerosis due to lipid rich plaque I25.83 ; Cervicalgia M54.2 ; Parkinsons disease G20 ; Chronic diarrhea K52.9 and Pure hypercholesterolemia E78.00 [place] [id number] [place] [address] 24925- 0221 March, Other chronic pain G89.29 [place] [id number] [place] [address] 42894- 8087 March, Other chronic pain G89.29 [place] [id number] [place] [address] 92654- 2515 Feb, Cervical stenosis of spine M48.02 [facility] [address] [address] 6238 Feb, Other chronic pain G89.29 [facility] [id number] [place] [address] 87294- 7607 Jan, [facility] [id number] [place] [address] 27523- 3755 Jan, Other chronic pain G89.29 [facility] [id number] [place] [address] 11509- 3347 Jan, Other chronic pain G89.29 [place] [address] 16443- 9220 Jan, Type 2 diabetes mellitus with other specified complication E11.69 ; Atherosclerotic heart disease of osage coronary artery without angina pectoris I25.10 ; Anxiety F41.9 ; HTN (hypertension) I10 ; Depression F32.9 ; Coronary atherosclerosis due to lipid rich plaque I25.83 ; Cervicalgia M54.2 ; Other chronic pain G89.29 and Functional 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 [place] [address] 85689- 4989 Nov, HTN (hypertension) I10 [place] [address] 46271- 7910 Nov, Type 2 diabetes mellitus with other specified complication E11.69 ; Atherosclerotic heart disease of os[place] coronary artery without angina pectoris I25.10 ; Hypercholesterolemia E78.0 ; Anxiety F41.9 ; Depression F32.9 ; Cervicalgia M54.2 and Functional 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 [facility] [address] 80694- 2313 Oct, [place] [id number] [place] [address] 48540- 3232 Oct, Neck pain M54.2 [facility] [id number] [place] [address] 77389- 2773 Sep, [facility] [id number] [place] [address] 22579- 8080 Aug, [facility] [address] 73497- 6992 Aug, [facility] [id number] [place] [address] 42640 -2548 Jul, Visit for TB skin test Z11.1 and Screening for tuberculosis Z11.1 [place] [address] [address]- 2861 May, [facility] [address] [address]- 3616 May, Neck pain M54.2 [facility] [address] [address]- 6110 May, [facility] [id number] [place] [address] 81130- 6507 Apr, Neck pain M54.2 [facility] [id number] [place] [address] 32659- 4438 Feb, Neck pain M54.2 [facility] [id number] [place] [address] 83244- 1427 Feb, [facility] [id number] [place] [address] 04867- 7053 Jan, Neck pain M54.2 [facility] [address] [place] [address] 68866- 5297 Jan, [facility] [id number] [place] [address] 98963- 3699 Jan, Neck pain M54.2 [facility] [address] [address]- 9224 Jan, Neck pain M54.2 ; Type 2 diabetes mellitus with other specified complication E11.69 ; CAD (coronary artery disease) 414.00 ; Insomnia 780.52 ; Anxiety F41.9 ; Depression F32.9 ; Pre-ulcerative calluses L84 and Hypercholesterolemia E78.0 [facility] [address] [address]- 8879 Nov, [facility] [address] [address]- 6621 Nov, Type 2 diabetes mellitus with other specified complication E11.69 ; Pre-ulcerative calluses L84 ; HTN (hypertension) I10 ; Hypercholesterolemia E78.0 ; Anxiety F41.9 ; Depression F32.9 ; Environmental allergies Z91.09 and Osteoarthritis M19.90 [place] [address] 56567- 8173 Sep, [place] [id number] [place] [address] 65537- 7388 Aug, Allergic rhinitis, seasonal J30.2 [place] [address] 34301- 8639 Jul, [place] [address] 24084- 7609 Jul, Other specified cardiac dysrhythmias 427.89 ; Essential hypertension, benign 401.1 ; Nondependent tobacco use disorder 305.1 ; Unspecified hereditary and idiopathic peripheral neuropathy 356.9 ; Diabetes mellitus without mention of complication, type II or unspecified type, not stated as uncontrolled 250.00 ; CAD (coronary artery disease) 414.00 ; Insomnia 780.52 and Depression [address] [place] [id number] [place] [address] 57113- 5105 Jul, [address] 98487- 1294 Jul, [place] [address] 05085- 0959 May, [address] 56391- 6356 May, [facility] [id number] [place] [address] 04238- 2812 May, [place] [address] 57912- 4314 Apr, [address] 27455- 2740 Apr, Skin lesion of face 709.9 and Anxiety 300.[address] 58553- 7306 March, [facility] [place] [facility] [address] [id number] [place] [address]- 3690 Feb, [facility] [place] [facility] [address] [id number] [place] [address]- 2990 Feb, [facility] [place] [facility] [address] [id number] [place] [address]- 0843 Jan, [facility] [place] [facility] [address] [id number] [place] [address]- 2518 Jan, [facility] [place] [facility] [address] [id number] [place] [address]- 2940 Jan, [facility] [place] [facility] [address] [id number] [place] [address]- 5810 Jan, [facility] [place] [facility] [address] [id number] [place] [address]- 1278 Jan, [facility] [place] [facility] [address] [id number] [place] [address]- 7362 Jan, [facility] [place] [facility] [address] [id number] [place] [address]- 2840 Dec, [facility] [place] [facility] [address] [id number] [place] [address]- 6936 Dec, [facility] [place] [facility] [address] [id number] [place] [address]- 4088 Nov, [facility] [place] [facility] [address] [id number] [place] [address]- 6052 Nov, [facility] [place] [facility] [address] [id number] [place] [address]- 2104 Oct, [facility] [place] [facility] [address] [id number] [place] [address]- 7617 Oct, [facility] [place] [facility] [address] [id number] [place] [address]- 3888 Oct, [facility] [place] [facility] [address] [id number] [place] [address]- 8389 Oct, [facility] [place] [facility] [address] [id number] [place] [address]- 0813 Sep, [facility] [place] [facility] [address] [id number] [place] [address]- 9675 Sep, [facility] [place] [facility] [address] [id number] [place] [address]- 5753 Sep, [facility] [place] [facility] [address] [id number] [place] [address]- 1846 Sep, [facility] [place] [facility] [address] [id number] [place] [address]- 1660 Sep, [facility] [place] [facility] [address] [id number] [place] [address]- 4379 Sep, [facility] [place] [facility] [address] [id number] [place] [address]- 9200 Aug, [facility] [place] [facility] [address] [id number] [place] [address]- 8638 Aug, [facility] [place] [facility] [address] [id number] [place] [address]- 7390 Aug, [facility] [place] [facility] [address] [id number] [place] [address]- 9210 Aug, [facility] [place] [facility] [address] [id number] [place] [address]- 8851 Aug, [facility] [place] [facility] [address] [id number] [place] [address]- 9591 Aug, [facility] [place] [facility] [address] [id number] [place] [address]- 2050 Aug, [facility] [place] [facility] [address] [id number] [place] [address]- 8640 Aug, [facility] [place] [facility] [address] [id number] [place] 5958 Aug, [facility] [place] [facility] [address] [id number] [place] [address]- 1722 Aug, [facility] [place] [facility] [address] [id number] [place] [address]- 4496 Jul, [facility] [place] [facility] [address] [id number] [place] [address]- 4912 Jul, [facility] [place] [facility] [address] [id number] [place] [address]- 0675 May, [facility] [place] [facility] [address] [id number] [place] 7804 May, [facility] [place] [facility] [address] [id number] [place] [address]- 1713 May, [facility] [place] [facility] [address] [id number] [place] [address]- 7849 May, [facility] [place] [facility] [address] [id number] [place] [address]- 2546 May, [facility] [place] [facility] [address] [id number] [place] [address]- 8544 May, [facility] [place] [facility] [address] [id number] [place] [address]- 7319 Apr, [facility] [place] [facility] [address] [id number] [place] [address]- 0438 Apr, [facility] [place] [facility] [address] [id number] [place] [address]- 7933 Apr, [facility] [place] [facility] [address] [id number] [place] [address]- 3181 Apr, [facility] [place] [facility] [address] [id number] [place] [address]- 0163 March, [facility] [place] [facility] [address] [id number] [place] [address]- 4505 March, [facility] [place] [facility] [address] [id number] [place] [address]- 9304 Feb, [facility] [address] [id number] [place] [address]- 4540 Feb, [facility] [place] [facility] [address] [id number] [place] [address]- 2397 Jan, [facility] [place] [facility] [address] [id number] [place] [address]- 6286 Jan, [facility] [place] [facility] [address] [id number] [place] [address]- 2632 Nov, [facility] [place] [facility] [address] [id number] [place] [address]- 9902 Nov, [facility] [place] [facility] [address] [id number] [place] [address]- 5700 Nov, [facility] [address] [id number] [place] [address]- 8581 Nov, [facility] [place] [facility] [address] [id number] [place] [address]- 5274 Nov, [facility] [address] [id number] [place] [address]- 1137 Nov, [facility] [place] [facility] [address] [id number] [place] [address]- 1624 Oct, [facility] [place] [facility] [address] [id number] [address]- 6739 Oct, [facility] [place] [facility] [address] [id number] [address]- 6226 Aug, [facility] [place] [facility] [address] [id number] [place] [address]- 7961 Aug, [facility] [place] [facility] [address] [id number] [place] [address]- 2526 Jul, [facility] [place] [facility] [address] [id number] [address]- 5590 Jun, [facility] [place] [facility] [id number] [address]- 1599 Jun, [facility] [id number] [address]- 0233 Jun, [facility] [address] [address]- 1699 Jun, [facility] [id number] [address]- 0013 Jun, [facility] [address] [address]- 5651 Jun, [facility] [address] [address]- 5984 May, [facility] [address] [address]- 5430 March, [facility] [address] [address]- 9850 March, [facility] [id number] [address]- 5179 Jan, IMMUNIZATIONS No Known Immunizations SOCIAL HISTORY Never Assessed REASON FOR VISIT referral PLAN OF CARE VITAL SIGNS MEDICATIONS Unknown [...]
--- OUTSIDE RECORDS SUMMARY | 2018-05-04 20:17 | XMS REPORT ---
Author Author NILAM Lomax Organization [facility] Address [address] [place] [address] Care Team Providers Care Web Press Operator Name Role Phone Dami NILAM Unavailable PROBLEMS Type Condition ICD9-CM Code TVL47-PF Code Onset Dates Condition Status SNOMED Code Problem Coronary atherosclerosis due to lipid rich plaque I25.83 Active 729190890796564 Problem Other chronic pain G89.29 Active 39621661 Problem Atherosclerotic heart disease of [place] coronary artery without angina pectoris I25.10 Active 628842657 Problem Acute right-sided low back pain with right-sided sciatica M54.41 Active 389454179 Problem Lumbar spondylosis M47.816 Active 270350380 Problem Parkinsons disease G20 Active 18483623 Problem Cervical stenosis of spine M48.02 Active 39002018 Problem 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 Active 435001700 Problem Hypercholesterolemia E78.0 Active 11207062 Problem Pure hypercholesterolemia E78.00 Active 989553077 Problem Depression F32.9 Active 78281928 Problem Pre-ulcerative calluses L84 Active 02222450 Problem Type 2 diabetes mellitus with other specified complication E11.69 Active 4941028 Problem Anxiety F41.9 Active 61996617 Problem HTN (hypertension) I10 Active 85651391 Problem Cervicalgia M54.2 Active [id number] ALLERGIES No Known Allergies ENCOUNTERS Encounter Location Date Diagnosis [facility] [address] [facility] [id number] [address] Feb, [facility] [address] [id number] [address] Jan, [facility] [address] [id number] [address] Jan, [facility] [id number] [place] [address] 28633- 4667 Dec, Cervicalgia M54.2 [place] [id number] [place] [address] 16422- 9624 02 Dec, 2017 Controlled substance agreement signed Z79.899 [facility] [id number] [place] [address] 46726- 2019 Oct, Cervicalgia M54.2 [facility] [id number] [place] [address] 84609- 2969 Oct, Acute right-sided low back pain with right-sided sciatica M54.41 [place] [id number] [place] [address] 95340- 0924 Oct, [place] [id number] [place] [address] 11460- 5031 Sep, Cervicalgia M54.2 [place] [id number] [place] [address] 01508- 2973 14 Sep, 2017 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 [facility] [id number] [place] [address] 34904- 9972 13 Sep, 2017 Lumbar back pain with radiculopathy affecting right lower extremity M54.17 [place] [id number] [place] [address] 54266- 0994 03 Sep, 2017 Acute right-sided low back pain with right-sided sciatica M54.41 [facility] [id number] [place] [address] 02476- 9149 30 Aug, 2017 Type 2 diabetes mellitus with other specified complication E11.69 ; HTN (hypertension) I10 ; Cervicalgia M54.2 ; Cervical stenosis of spine M48.02 ; Acute right hip pain M25.551 ; Atherosclerotic heart disease of [place] coronary artery without angina pectoris I25.10 ; Hypercholesterolemia E78.0 ; Parkinsons disease G20 and Depression F32.9 [facility] [id number] [place] [address] 57488- 1045 Aug, Other chronic pain G89.29 [facility] [address] [address] 27 Jul, 2017 Other chronic pain G89.29 [facility] [address], [place] [address] 3647 21 Jul, 2017 [facility] [address], [place] [address] 19 Jul, 2017 Cough R05 and Bronchitis J40 [facility] [address], [place] [address] 3362 30 Jun, 2017 Other chronic pain G89.29 [facility] [id number] [place] [address] 67841- 8648 Jun, [facility] [address], [place] [address] 3756 Jun, Atherosclerotic heart disease of [place] coronary artery without angina pectoris I25.10 and Cervicalgia M54.2 [facility] [address] [address] 4337 Jun, Cervicalgia M54.2 [facility] [id number] [place] [address] 62442- 0209 May, Other chronic pain G89.29 [facility] [address], [place] [address] 3845 May, [facility] [address], [place] [address] 3827 May, [facility] [address], [place] [address] 5460 May, [facility] [address], [place] [address]- 0287 May, [facility] [address], [place] [address] 9501 May, Type 2 diabetes mellitus with other specified complication E11.69 ; HTN (hypertension) I10 ; Atherosclerotic heart disease of [place] coronary artery without angina pectoris I25.10 ; Parkinsons disease G20 and Cervical stenosis of spine M48.02 [place] [id number] [place] [address] 91757- 2838 Apr, Cervicalgia M54.2 [place] [id number] [place] [address] 25675- 4638 Apr, Type 2 diabetes mellitus with other specified complication E11.69 ; HTN (hypertension) I10 ; Depression F32.9 ; Atherosclerotic heart disease of [place] coronary artery without angina pectoris I25.10 ; Coronary atherosclerosis due to lipid rich plaque I25.83 ; Cervicalgia M54.2 ; Parkinsons disease G20 ; Chronic diarrhea K52.9 and Pure hypercholesterolemia E78.00 [place] [id number] [place] [address] 08892- 2713 March, Other chronic pain G89.29 [place] [address] 16370- 9694 March, Other chronic pain G89.29 [place] [id number] [place] [address] 62530- 0761 Feb, Cervical stenosis of spine M48.02 [facility] [id number] [place] [address] 62313- 0139 Feb, Other chronic pain G89.29 [facility] [id number] [place] [address] 42010- 4746 Jan, [facility] [id number] [place] [address] 07505- 5027 Jan, Other chronic pain G89.29 [place] [id number] [place] [address] 42307- 7602 Jan, Other chronic pain G89.29 [facility] [id number] [place] [address] 61420- 9681 Jan, Type 2 diabetes mellitus with other specified complication E11.69 ; Atherosclerotic heart disease of [place] coronary artery without angina pectoris I25.10 ; Anxiety F41.9 ; HTN (hypertension) I10 ; Depression F32.9 ; Coronary atherosclerosis due to lipid rich plaque I25.83 ; Cervicalgia M54.2 ; Other chronic pain G89.29 and Functional 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 [facility] [id number] [place] [address] 39261- 2453 10 Nov, 2016 HTN (hypertension) I10 [place] [address] 11110- 9094 03 Nov, 2016 Type 2 diabetes mellitus with other specified complication E11.69 ; Atherosclerotic heart disease of [place] coronary artery without angina pectoris I25.10 ; Hypercholesterolemia E78.0 ; Anxiety F41.9 ; Depression F32.9 ; Cervicalgia M54.2 and Functional 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 [facility] [id number] [place] [address] 19519- 4235 Oct, [place] [address] 58759- 5236 Oct, Neck pain M54.2 [place] [id number] [place] [address] 84010- 2475 Sep, [place] [id number] [place] [address] 21238- 4612 Aug, [facility] [id number] [place] [address] 96226- 7296 Aug, [facility] [id number] [place] [address] 20155 -4831 Jul, Visit for TB skin test Z11.1 and Screening for tuberculosis Z11.1 [facility] [address] 73589- 1181 May, [facility] [id number] [place] [address] 50366- 7654 May, Neck pain M54.2 [facility] [address] 29450- 7103 May, [facility] [address], [place] [address]- 1179 Apr, Neck pain M54.2 [facility] [address] [place] [address] 526892- 8653 Feb, Neck pain M54.2 [facility] [id number] [place] [address] 82460- 3010 Feb, [facility] [id number] [place] [address] 21770- 7579 Jan, Neck pain M54.2 [place] [id number] [place] [address] 98503- 1069 Jan, [facility] [id number] [place] [address] 62558- 5018 Jan, Neck pain M54.2 [place] [id number] [place] [address] 97293- 8882 Jan, Neck pain M54.2 ; Type 2 diabetes mellitus with other specified complication E11.69 ; CAD (coronary artery disease) 414.00 ; Insomnia 780.52 ; Anxiety F41.9 ; Depression F32.9 ; Pre-ulcerative calluses L84 and Hypercholesterolemia E78.0 [place] [address] [place] [address] 50354- 6787 Nov, [place] [id number] [place] [address] 74253- 8010 Nov, Type 2 diabetes mellitus with other specified complication E11.69 ; Pre-ulcerative calluses L84 ; HTN (hypertension) I10 ; Hypercholesterolemia E78.0 ; Anxiety F41.9 ; Depression F32.9 ; Environmental allergies Z91.09 and Osteoarthritis M19.90 [facility] [address], [place] [address]- 9040 Sep, [place] [id number] [place] [address] 33725- 2542 Aug, Allergic rhinitis, seasonal J30.2 [facility] [id number] [place] [address] 31846- 1876 Jul, [facility] [address] 59176- 1381 Jul, Other specified cardiac dysrhythmias 427.89 ; Essential hypertension, benign 401.1 ; Nondependent tobacco use disorder 305.1 ; Unspecified hereditary and idiopathic peripheral neuropathy 356.9 ; Diabetes mellitus without mention of complication, type II or unspecified type, not stated as uncontrolled 250.00 ; CAD (coronary artery disease) 414.00 ; Insomnia 780.52 and Depression 311 [facility] [address] 45297- 5590 Jul, [facility] [address] 86064- 7768 Jul, [facility] [address] 72680- 9388 May, [facility] [address] 38143- 1449 May, [facility] [address] 55024- 7173 May, [facility] [id number] [place] [address] 54613- 1516 Apr, [facility] [address] 03549- 1802 Apr, Skin lesion of face 709.9 and Anxiety 300.00 [facility] [id number] [place] [address] 66242- 3309 March, [facility] [address] 07461- 5485 Feb, [facility] [id number] [place] [address] 17100- 5126 Feb, [facility] [address] 31824- 5924 Jan, [facility] [place] [facility] [address] [id number] [place] [address]- 7474 Jan, [facility] [place] [facility] [address] [id number] [place] [address]- 0716 Jan, [facility] [place] [facility] [address] [facility] [id number] [place] [address]- 2466 Jan, [facility] [place] [facility] [address] [id number] [place] [address]- 1201 Jan, [facility] [place] [facility] [address] [id number] [place] [address]- 6023 Jan, [facility] [place] [facility] [address] [id number] [place] [address]- 4937 Dec, [facility] [place] [facility] [address] [id number] [place] [address]- 5366 Dec, [facility] [place] [facility] [address] [facility] [id number] [place] [address]- 2496 Nov, [facility] [place] [facility] [address] [id number] [place] [address]- 7909 Nov, [facility] [place] [facility] [address] [facility] [id number] [place] [address]- 2764 Oct, [facility] [place] [facility] [address] [id number] [place] [address]- 6737 Oct, [facility] [place] [facility] [address] [facility] [id number] [place] [address]- 6074 Oct, [facility] [place] [facility] [address] [id number] [place] [address]- 5121 Oct, [facility] [place] [facility] [address] [facility] [id number] [place] [address]- 7005 Sep, [facility] [place] [facility] [address] [facility] [id number] [place] [address]- 0434 Sep, [facility] [place] [facility] [address] [id number] [place] [address]- 5505 Sep, [facility] [place] [facility] [address] [id number] [place] [address]- 3590 Sep, [facility] [place] [facility] [address] [id number] [place] [address]- 5172 Sep, [facility] [place] [facility] [address] [id number] [place] [address]- 7211 Sep, [facility] [place] [facility] [address] [id number] [place] [address]- 2675 Aug, [facility] [place] [facility] [address] [id number] [place] [address]- 5506 Aug, [facility] [place] [facility] [address] [id number] [place] [address]- 9567 Aug, [facility] [place] [facility] [address] [id number] [place] [address]- 5538 Aug, [facility] [place] [facility] [address] [id number] [place] [address]- 1042 Aug, [facility] [place] [facility] [address] [id number] [place] [address]- 4905 Aug, [facility] [place] [facility] [address] [id number] [place] [address]- 8506 Aug, [facility] [place] [facility] [address] [id number] [place] [address]- 9305 Aug, [facility] [place] [facility] [address] [id number] [place] [address]- 2628 Aug, [facility] [place] [facility] [address] [id number] [place] [address]- 7781 Aug, [facility] [place] [facility] [address] [id number] [place] [address]- 4871 05 Jul, 2014 [facility] [place] [facility] [address] [id number] [place] [address]- 9885 Jul, [facility] [place] [facility] [address] [id number] [place] 5079 May, [facility] [place] [facility] [address] [id number] [place] [address]- 4708 May, [facility] [place] [facility] [address] [id number] [place] [address]- 6446 May, [facility] [place] [facility] [address] [id number] [place] [address]- 4324 May, [facility] [place] [facility] [address] [id number] [place] 1229 May, [facility] [place] [facility] [address] [id number] [place] [address]- 6034 May, [facility] [place] [facility] [address] [id number] [place] [address]- 9944 Apr, [facility] [place] [facility] [address] [id number] [place] [address]- 1561 Apr, [facility] [place] [facility] [address] [id number] [place] [address]- 1219 Apr, [facility] [place] [facility] [address] [id number] [place] [address]- 9543 Apr, [facility] [place] [facility] [address] [id number] [place] [address]- 3793 March, [facility] [place] [facility] [address] [id number] [place] [address]- 2551 March, [facility] [place] [facility] [address] [id number] [place] [address]- 3696 Feb, [facility] [place] [facility] [address] [id number] [place] [address]- 2688 Feb, [facility] [place] [facility] [address] [id number] [place] [address]- 9476 Jan, [facility] [place] [facility] [address] [id number] [place] [address]- 7314 Jan, [facility] [address] [id number] [place] [address]- 4377 Nov, [facility] [address] [id number] [place] [address]- 1775 Nov, [facility] [address] [id number] [place] [address]- 1964 Nov, [facility] [address] [id number] [place] [address]- 0888 Nov, [facility] [address] [id number] [place] [address]- 1847 Nov, [facility] [address] [id number] [place] [address]- 1522 Nov, [facility] [address] [id number] [place] [address]- 5219 Oct, [facility] [address] [id number] [place] [address]- 0003 Oct, [facility] [address] [id number] [place] [address]- 2420 Aug, [facility] [address] [id number] [place] [address]- 9866 Aug, [facility] [address] [id number] [place] [address]- 0065 Jul, [facility] [address] [id number] [place] [address]- 0832 Jun, [facility] [place] [facility] [address] [id number] [place] [address]- 5989 Jun, [facility] [place] [facility] [address] [id number] [place] [address]- 9536 Jun, [facility] [place] [facility] [address] [id number] [place] [address]- 2095 Jun, [facility] [address] [facility] [id number], [place] [address]- 2546 Jun, [facility] [id number] [address]- 2546 Jun, [facility] [address] [facility] [id number] [address] 2546 May, [facility] [address] [place] [address]- 2546 March, [facility] [address] [facility] [id number], [place] [address] 2546 March, [facility] [id number] [address]- 1726 Jan, IMMUNIZATIONS No Known Immunizations SOCIAL HISTORY Never Assessed REASON FOR VISIT hand shaking, PT says any time he needs to grasp something his hands beging to shake very bad, Also very bad diarrhia for many years- Yohannes ESTRADA PLAN OF CARE Activity Details Follow Up 4 Weeks Reason:parkinsons VITAL SIGNS Height 66 in 2017-04-28 Weight 169.8 lbs 2017-04-28 Temperature 98.1 degrees Fahrenheit 2017-04-28 Heart Rate 66 bpm 2017-04-28 Respiratory Rate 18 2017-04-28 BMI 27.40 kg/m2 2017-04-28 Blood pressure systolic 118 mmHg 2017-04-28 Blood pressure diastolic 76 mmHg 2017-04-28 MEDICATIONS Medication Instructions Dosage Frequency Start Date End Date Duration Status Lisinopril 20 mg Orally Once a day TAKE 1 TABLET BY MOUTH DAILY 24h Active Mobic 7.5 MG Orally twice a day 1 tablet 12h Active Sinemet 10-100 mg Orally Three times a day 1 tablet 8h Apr, 30 day(s) Active Lomotil 2.5-0.025 MG 2 tablet by Oral route 3 times per day PRN Oct Active Claritin 10 MG 1 tablet Once a day Orally Active Gabapentin 300 MG Orally 3 times a day 1 capsule 8h Active Ultram 50 mg Orally 3 times a day 1 tablet as needed 8h Nov, Active Tizanidine HCl 4 MG Orally Three times a day 1 tablet as needed 8h Jan, Active Depakote 500 mg Orally 3 times a day 1 tablet 8h Aug, Active Metformin HCl 1000 MG TAKE 1 TABLET BY MOUTH TWICE DAILY Active buspirone 30 mg by oral route 2 times a day take 1 tablet (30 mg) by oral route 2 times per day 12h Aug, Active Zocor 40 MG 1 tablet in the evening Once a day Orally 30 Active RESULTS Name Result Date Reference Range A1C (IN HOUSE) 2017-04-28 A1C IN HOUSE 6.0 4.3 - 5.6 % Previous A1c 6.1 Lot [id number] Exp date 01/2019 MICROALBUMIN, URINE (IN HOUSE) 2017-04-28 MICROALBUMIN normal Lot # [id number] Exp date 03/2018 Clarity clear Color yellow ALB 30 CRE 200 A:C (IN HOUSE) <30 Control + Control Lot # Exp date PROCEDURES Procedure Date Ordered Result Body Site GLYCATED HEMOGLOBIN TEST April 28, 2017 MICROALBUMIN, SEMIQUANT April 28, 2017 [facility] VISIT ESTABLISHED PATIENT April 28, 2017 INSTRUCTIONS MEDICATIONS ADMINISTERED No Known Medications [...]
--- OUTSIDE RECORDS SUMMARY | 2018-05-04 20:18 | XMS REPORT ---
Author Author NILAM Lomax Organization [facility] Address [address] [place] [address] Care Team Providers Care Technician Assistant Name Role Phone Dami NILAM Unavailable PROBLEMS Type Condition ICD9-CM Code [id number] Code Onset Dates Condition Status SNOMED Code Problem Coronary atherosclerosis due to lipid rich plaque I25.83 Active [id number] Problem Other chronic pain G89.29 Active 38910454 Problem Atherosclerotic heart disease of [place] coronary artery without angina pectoris I25.10 Active 418868012 Problem Acute right-sided low back pain with right-sided sciatica M54.41 Active 401969650 Problem Lumbar spondylosis M47.816 Active 452087296 Problem Parkinsons disease G20 Active 96813986 Problem Cervical stenosis of spine M48.02 Active 78555794 Problem 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 Active 600189012 Problem Hypercholesterolemia E78.0 Active 76186580 Problem Pure hypercholesterolemia E78.00 Active 517784444 Problem Depression F32.9 Active 28179513 Problem Pre-ulcerative calluses L84 Active 82278678 Problem Type 2 diabetes mellitus with other specified complication E11.69 Active 3582473 Problem Anxiety F41.9 Active 59186999 Problem HTN (hypertension) I10 Active 82899195 Problem Cervicalgia M54.2 Active [id number] ALLERGIES No Information ENCOUNTERS Encounter Location Date Diagnosis [facility] [id number] [address] Feb, [facility] [address] [address] Jan, [facility] [address] [address] Jan, [facility] [id number] [place] [address] 23299- 5068 Dec, Cervicalgia M54.2 [facility] [id number] [place] [address] 96449- 3461 02 Dec, 2017 Controlled substance agreement signed Z79.899 [facility] [id number] [place] [address] 45894- 9084 Oct, Cervicalgia M54.2 [facility] [address] [address]79- 0200 Oct, Acute right-sided low back pain with right-sided sciatica M54.41 [facility] [id number] [place] [address] 20075- 6884 Oct, [facility] [address] [address]35- 0583 Sep, Cervicalgia M54.2 [facility] [address] 60621- 7928 14 Sep, 2017 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 [facility] [id number] [place] [address] 38898- 5188 13 Sep, 2017 Lumbar back pain with radiculopathy affecting right lower extremity M54.17 [facility] [id number] [place] [address] 11497- 3868 03 Sep, 2017 Acute right-sided low back pain with right-sided sciatica M54.41 [facility] [id number] [place] [address] 64239- 1739 30 Aug, 2017 Type 2 diabetes mellitus with other specified complication E11.69 ; HTN (hypertension) I10 ; Cervicalgia M54.2 ; Cervical stenosis of spine M48.02 ; Acute right hip pain M25.551 ; Atherosclerotic heart disease of [place] coronary artery without angina pectoris I25.10 ; Hypercholesterolemia E78.0 ; Parkinsons disease G20 and Depression F32.9 [facility] [id number] [place] [address] 93816- 2810 Aug, Other chronic pain G89.29 [facility] [address] [address] 3064 Jul, Other chronic pain G89.29 [facility] [address] [address] 20[address] 21 Jul, 2017 [facility] [address], [place] [address] 19 Jul, 2017 Cough R05 and Bronchitis J40 [facility] [id number] [address] 3951 30 Jun, 2017 Other chronic pain G89.29 [facility] [id number] [place] [address] 62479- 8965 Jun, [facility] [id number] [place] [address] 62169- 5804 Jun, Atherosclerotic heart disease of [place] coronary artery without angina pectoris I25.10 and Cervicalgia M54.2 [facility] [address] [address] 4955 Jun, Cervicalgia M54.2 [facility] [id number] [place] [address] 69259- 9988 May, Other chronic pain G89.29 [facility] [address], [place] [address] 2357 May, [facility] [address], [place] [address]- 8449 May, [facility] [address], [place] [address]- 0462 May, [facility] [id number] [place] [address] 65459- 3823 May, [facility] [address], [place] [address]- 8939 May, Type 2 diabetes mellitus with other specified complication E11.69 ; HTN (hypertension) I10 ; Atherosclerotic heart disease of [place] coronary artery without angina pectoris I25.10 ; Parkinsons disease G20 and Cervical stenosis of spine M48.02 [facility] [id number] [place] [address] 20523- 2296 Apr, Cervicalgia M54.2 [facility] [id number] [place] [address] 54253- 6609 Apr, Type 2 diabetes mellitus with other specified complication E11.69 ; HTN (hypertension) I10 ; Depression F32.9 ; Atherosclerotic heart disease of [place] coronary artery without angina pectoris I25.10 ; Coronary atherosclerosis due to lipid rich plaque I25.83 ; Cervicalgia M54.2 ; Parkinsons disease G20 ; Chronic diarrhea K52.9 and Pure hypercholesterolemia E78.00 [facility] [id number] [place] [address] 84409- 5860 March, Other chronic pain G89.29 [facility] [address] 41608- 0591 March, Other chronic pain G89.29 [facility] [id number] [place] [address] 82092- 7388 Feb, Cervical stenosis of spine M48.02 [facility] [id number] [place] [address] 65238- 7863 Feb, Other chronic pain G89.29 [facility] [id number] [place] [address] 23263- 3924 Jan, [facility] [id number] [place] [address] 52961- 2548 Jan, Other chronic pain G89.29 [facility] [id number] [place] [address] 05562- 8541 Jan, Other chronic pain G89.29 [facility] [id number] [place] [address] 38762- 4019 Jan, Type 2 diabetes mellitus with other specified complication E11.69 ; Atherosclerotic heart disease of [place] coronary artery without angina pectoris I25.10 ; Anxiety F41.9 ; HTN (hypertension) I10 ; Depression F32.9 ; Coronary atherosclerosis due to lipid rich plaque I25.83 ; Cervicalgia M54.2 ; Other chronic pain G89.29 and Functional 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 [facility] [id number] [place] [address] 75027- 9276 Nov, HTN (hypertension) I10 [facility] [address] 84930- 7152 03 Nov, 2016 Type 2 diabetes mellitus with other specified complication E11.69 ; Atherosclerotic heart disease of [place] coronary artery without angina pectoris I25.10 ; Hypercholesterolemia E78.0 ; Anxiety F41.9 ; Depression F32.9 ; Cervicalgia M54.2 and Functional 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 [facility] [id number] [place] [address] 29870- 4611 Oct, [facility] [address] 98568- 7565 Oct, Neck pain M54.2 [facility] [id number] [place] [address] 51773- 5754 Sep, [facility] [id number] [place] [address] 94205- 6245 Aug, [facility] [id number] [place] [address] 36837- 2491 Aug, [facility] [id number] [place] [address] 78264 -7344 Jul, Visit for TB skin test Z11.1 and Screening for tuberculosis Z11.1 [facility] [id number] [place] [address] 29929- 2614 May, [facility] [id number] [place] [address] 85093- 7724 May, Neck pain M54.2 [facility] [id number] [place] [address] 53233- 3516 May, [facility] [address], [place] [address]- 2356 Apr, Neck pain M54.2 [facility] [id number] [place] [address] 942984- 8573 Feb, Neck pain M54.2 [facility] [id number] [place] [address] 71726- 1556 Feb, [facility] [id number] [place] [address] 87637- 3362 Jan, Neck pain M54.2 [facility] [id number] [place] [address] 99912- 0572 Jan, [facility] [id number] [place] [address] 46388- 4150 Jan, Neck pain M54.2 [facility] [id number] [place] [address] 38827- 4645 08 Jan, 2016 Neck pain M54.2 ; Type 2 diabetes mellitus with other specified complication E11.69 ; CAD (coronary artery disease) 414.00 ; Insomnia 780.52 ; Anxiety F41.9 ; Depression F32.9 ; Pre-ulcerative calluses L84 and Hypercholesterolemia E78.0 [facility] [id number] [place] [address] 05548- 6739 Nov, [facility] [id number] [place] [address] 67635- 3063 Nov, Type 2 diabetes mellitus with other specified complication E11.69 ; Pre-ulcerative calluses L84 ; HTN (hypertension) I10 ; Hypercholesterolemia E78.0 ; Anxiety F41.9 ; Depression F32.9 ; Environmental allergies Z91.09 and Osteoarthritis M19.90 [facility] [address] [address]- 2353 Sep, [facility] [id number] [place] [address] 37991- 7286 Aug, Allergic rhinitis, seasonal J30.2 [facility] [id number] [place] [address] 26966- 2245 Jul, [facility] [id number] [place] [address] 60680- 0364 Jul, Other specified cardiac dysrhythmias 427.89 ; Essential hypertension, benign 401.1 ; Nondependent tobacco use disorder 305.1 ; Unspecified hereditary and idiopathic peripheral neuropathy 356.9 ; Diabetes mellitus without mention of complication, type II or unspecified type, not stated as uncontrolled 250.00 ; CAD (coronary artery disease) 414.00 ; Insomnia 780.52 and Depression 311 [facility] [address] 06848- 9971 Jul, [facility] [id number] [place] [address] 58099- 5413 Jul, [facility] [address] 95414- 1816 May, [facility] [id number] [place] [address] 43022- 4636 May, [facility] [id number] [place] [address] 98538- 1908 May, [facility] [id number] [place] [address] 62866- 0574 Apr, [facility] [id number] [place] [address] 33593- 1682 Apr, Skin lesion of face 709.9 and Anxiety 300.00 [facility] [id number] [place] [address] 32751- 5437 March, [facility] [id number] [place] [address] 04117- 6804 Feb, [facility] [id number] [place] [address] 54739- 4355 Feb, [facility] [id number] [place] [address] 83925- 6279 Jan, [facility] [place] [facility] [address] [id number] [place] [address]- 7264 Jan, [facility] [place] [facility] [address] [id number] [place] [address]- 4266 Jan, [facility] [place] [facility] [address] [id number] [place] [address]- 8564 Jan, [facility] [place] [facility] [address] [id number] [place] [address]- 4850 Jan, [facility] [place] [facility] [address] [id number] [place] [address]- 5542 Jan, [facility] [place] [facility] [address] [id number] [place] [address]- 7992 Dec, [facility] [place] [facility] [address] [id number] [place] [address]- 1923 Dec, [facility] [place] [facility] [address] [facility] [id number] [place] [address]- 6439 Nov, [facility] [place] [facility] [address] [id number] [place] [address]- 6624 Nov, [facility] [place] [facility] [address] [facility] [id number] [place] [address]- 6968 Oct, [facility] [place] [facility] [address] [id number] [place] [address]- 8976 Oct, [facility] [place] [facility] [address] [id number] [place] [address]- 9783 Oct, [facility] [place] [facility] [address] [id number] [place] [address]- 1477 Oct, [facility] [place] [facility] [address] [id number] [place] [address]- 7802 Sep, [facility] [place] [facility] [address] [facility] [id number] [place] [address]- 5997 Sep, [facility] [place] [facility] [address] [id number] [place] [address]- 7994 Sep, [facility] [place] [facility] [address] [id number] [place] [address]- 7510 Sep, [facility] [place] [facility] [address] [id number] [place] [address]- 0699 Sep, [facility] [place] [facility] [address] [id number] [place] [address]- 3190 Sep, [facility] [place] [facility] [address] [id number] [place] [address]- 5362 Aug, [facility] [place] [facility] [address] [id number] [place] [address]- 8158 Aug, [facility] [place] [facility] [address] [id number] [place] [address]- 0292 Aug, [facility] [place] [facility] [address] [id number] [place] [address]- 0338 Aug, [facility] [place] [facility] [address] [id number] [place] [address]- 7878 Aug, [facility] [place] [facility] [address] [id number] [place] [address]- 4028 Aug, [facility] [place] [facility] [address] [id number] [place] [address]- 8877 Aug, [facility] [place] [facility] [address] [id number] [place] [address]- 2145 Aug, [facility] [place] [facility] [address] [id number] [place] [address]- 0293 Aug, [facility] [place] [facility] [address] [id number] [place] [address]- 6200 Aug, [facility] [place] [facility] [address] [id number] [place] 5141 05 Jul, 2014 [facility] [place] [facility] [address] [id number] [place] [address]- 6268 Jul, [facility] [place] [facility] [address] [id number] [place] [address]- 6184 May, [facility] [place] [facility] [address] [id number] [place] [address]- 9898 May, [facility] [place] [facility] [address] [id number] [place] [address]- 1742 May, [facility] [place] [facility] [address] [id number] [place] [address]- 8836 May, [facility] [place] [facility] [address] [id number] [place] [address]- 8079 May, [facility] [place] [facility] [address] [id number] [place] [address]- 0357 May, [facility] [place] [facility] [address] [id number] [place] [address]- 0243 Apr, [facility] [place] [facility] [address] [id number] [place] [address]- 6370 Apr, [facility] [place] [facility] [address] [id number] [place] [address]- 7204 Apr, [facility] [place] [facility] [address] [id number] [place] [address]- 4899 Apr, [facility] [place] [facility] [address] [id number] [address]- 9937 March, [facility] [place] [facility] [address] [id number], [place] [address]- 1605 March, [facility] [place] [facility] [address] [id number] [place] [address]- 3755 Feb, [facility] [place] [facility] [address] [id number] [place] [address]- 1017 Feb, [facility] [place] [facility] [address] [id number] [place] [address]- 2754 Jan, [facility] [place] [facility] [address] [id number] [place] [address]- 2629 Jan, [facility] [address] [id number] [place] [address]- 5819 Nov, [facility] [place] [facility] [address] [id number] [place] [address]- 1343 Nov, [facility] [place] [facility] [address] [id number] [place] [address]- 8740 Nov, [facility] [place] [facility] [address] [id number] [place] [address]- 8614 Nov, [facility] [place] [facility] [address] [id number] [place] [address]- 0762 Nov, [facility] [place] [facility] [address] [id number] [place] [address]- 3020 Nov, [facility] [place] [facility] [address] [id number] [place] [address]- 9303 Oct, [facility] [place] [facility] [address] [id number] [place] [address]- 2012 Oct, [facility] [place] [facility] [address] [id number] [place] [address]- 3759 Aug, [facility] [place] [facility] [address] [id number] [place] [address]- 2116 Aug, [facility] [place] [facility] [address] [id number] [place] [address]- 4782 Jul, [facility] [place] [facility] [address] [id number] [place] [address]- 2737 Jun, [facility] [place] [facility] [address] [id number] [place] [address]- 2997 Jun, [facility] [place] [facility] [address] [id number] [place] [address]- 9636 Jun, [facility] [place] [facility] [address] [id number] [place] [address]- 2720 Jun, [facility] [address] [facility] [id number], [place] [address]- 1116 Jun, [facility] [id number] [address]- 2546 Jun, [facility] [id number] [address]- 2066 May, [facility] [id number] [address]- 2546 March, [facility] [id number] [address]- 0196 March, [facility] [id number] [address]- 7041 Jan, IMMUNIZATIONS No Known Immunizations SOCIAL HISTORY Never Assessed REASON FOR VISIT FYI PLAN OF CARE VITAL SIGNS MEDICATIONS Unknown [...]
--- OUTSIDE RECORDS SUMMARY | 2018-05-04 20:18 | XMS REPORT ---
Author Author JAMES ARTEMIO Organization 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 Active 402918386 Problem Acute right-sided low back pain with right-sided sciatica M54.41 Active 387781991 Problem Lumbar spondylosis M47.816 Active 345744412 Problem Parkinsons disease G20 Active 49129570 Problem Cervical stenosis of spine M48.02 Active 57441605 Problem 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 Active 798773828 Problem Hypercholesterolemia E78.0 Active 65706549 Problem Pure hypercholesterolemia E78.00 Active 115170646 Problem Depression F32.9 Active 93811286 Problem Pre-ulcerative calluses L84 Active 07514895 Problem Type 2 diabetes mellitus with other specified complication E11.69 Active 6023047 Problem Anxiety F41.9 Active 78735427 Problem HTN (hypertension) I10 Active 15919255 Problem Cervicalgia M54.2 Active [id number] ALLERGIES No Known Allergies ENCOUNTERS Encounter Location Date Diagnosis [facility] [address] [id number], [place] [address] March, [facility] [address], [place] [address] Feb, Cervicalgia M54.2 [facility] [address] [id number], [place] [address] 6679 Feb, Cervical stenosis of spine M48.02 [facility] [id number] [place] [address] 74602- 7421 Jan, Cervicalgia M54.2 [place] [id number] [place] [address] 74843- 3422 Jan, [place] [id number] [place] [address] 28765- 0613 Dec, Cervicalgia M54.2 [place] [address] [address]- 3350 Dec, Controlled substance agreement signed Z79.899 [place] [id number] [place] [address] 61021- 9351 Oct, Cervicalgia M54.2 [place] [id number] [place] [address] 90590- 7114 Oct, Acute right-sided low back pain with right-sided sciatica M54.41 [place] [id number] [place] [address] 94939- 9187 Oct, [place] [id number] [place] [address] 37351- 4727 Sep, Cervicalgia M54.2 [place] [id number] [place] [address] 94272- 5134 14 Sep, 2017 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 [place] [id number] [place] [address] 41855- 0630 13 Sep, 2017 Lumbar back pain with radiculopathy affecting right lower extremity M54.17 [place] [id number] [place] [address] 63818- 1652 03 Sep, 2017 Acute right-sided low back pain with right-sided sciatica M54.41 [place] [id number] [place] [address] 83925- 5892 30 Aug, 2017 Type 2 diabetes mellitus with other specified complication E11.69 ; HTN (hypertension) I10 ; Cervicalgia M54.2 ; Cervical stenosis of spine M48.02 ; Acute right hip pain M25.551 ; 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 [id number] [place] [address] 96623- 7165 Aug, Other chronic pain G89.29 [facility] [id number] [place] [address] 93054- 9504 Jul, Other chronic pain G89.29 [facility] [id number] [place] [address] 84831- 2576 Jul, [facility] [address] [address]29 -[address]378 Jul, Cough R05 and Bronchitis J40 [facility] [address] 14479- 1278 Jun, Other chronic pain G89.29 [facility] [id number] [place] [address] 79203- 6758 Jun, [facility] [id number] [place] [address] 65569- 8682 Jun, Atherosclerotic heart disease of ewiiaapaay[place] coronary artery without angina pectoris I25.10 and Cervicalgia M54.2 [facility] [id number] [place] [address] 39360- 8098 Jun, Cervicalgia M54.2 [facility] [id number] [place] [address] 01462- 8610 May, Other chronic pain G89.29 [facility] [id number] [place] [address] 86949- 4359 May, [facility] [id number] [place] [address] 39770- 8716 May, [facility] [id number] [place] [address] 13466- 1960 May, 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 ; Parkinsons disease G20 and Cervical stenosis of spine M48.02 [place] [id number] [place] [address] 00723- 2812 Apr, Cervicalgia M54.2 [place] [id number] [place] [address] 91522- 7560 Apr, Type 2 diabetes mellitus with other specified complication E11.69 ; HTN (hypertension) I10 ; Depression F32.9 ; 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 [address] [place] [address] 96062- 0639 Feb, Other chronic pain G89.29 [place] [id number] [place] [address] 15200- 7063 Jan, [place] [id number] [place] [address] 80392- 4197 Jan, Other chronic pain G89.29 [place] [id number] [place] [address] 97498- 7246 Jan, Other chronic pain G89.29 [place] [address] 19299- 3699 Jan, Type 2 diabetes mellitus with other specified complication E11.69 ; 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 [id number] [place] [address] 93939- 4002 Oct, [place] [address] 09377- 2258 Oct, Neck pain M54.2 [place] [id number] [place] [address] 27615- 6716 Sep, [facility] [id number] [place] [address] 76797- 9894 Aug, [facility] [address] 19510- 0214 Aug, [facility] [id number] [place] [address] 66880 -3626 Jul, Visit for TB skin test Z11.1 and Screening for tuberculosis Z11.1 [place] [address] 25062- 8055 May, [facility] [address], [place] [address]- 3574 May, Neck pain M54.2 [facility] [address] [address] May, [facility] [address], [place] [address]- 1449 Apr, Neck pain M54.2 [facility] [address], [place] [address]- 1634 Feb, Neck pain M54.2 [facility] [id number] [place] [address] 46739- 3568 Feb, [facility] [id number], [place] [address]- 6656 Jan, Neck pain M54.2 [facility] [id number], [place] [address]- 5379 Jan, [facility] [address], [place] [address]- 9749 Jan, Neck pain M54.2 [facility] [address], [place] [address]- 6392 Jan, Neck pain M54.2 ; Type 2 diabetes mellitus with other specified complication E11.69 ; CAD (coronary artery disease) 414.00 ; Insomnia 780.52 ; Anxiety F41.9 ; Depression F32.9 ; Pre-ulcerative calluses L84 and Hypercholesterolemia E78.0 [facility] [address], [place] [address]- 2329 Nov, [facility] [address] [place] [address] 602711- 5237 Nov, Type 2 diabetes mellitus with other specified complication E11.69 ; Pre-ulcerative calluses L84 ; HTN (hypertension) I10 ; Hypercholesterolemia E78.0 ; Anxiety F41.9 ; Depression F32.9 ; Environmental allergies Z91.09 and Osteoarthritis M19.90 [facility] [id number] [place] [address] 67833- 0871 Sep, [facility] [address] 51105- 1356 Aug, Allergic rhinitis, seasonal J30.2 [place] [address] 44990- 8644 Jul, [facility] [address] 57827- 1780 Jul, Other specified cardiac dysrhythmias 427.89 ; Essential hypertension, benign 401.1 ; Nondependent tobacco use disorder 305.1 ; Unspecified hereditary and idiopathic peripheral neuropathy 356.9 ; Diabetes mellitus without mention of complication, type II or unspecified type, not stated as uncontrolled 250.00 ; CAD (coronary artery disease) 414.00 ; Insomnia 780.52 and Depression 311 [place] [address] 50660- 3435 Jul, [facility] [id number] [place] [address] 28040- 7246 Jul, [facility] [id number] [place] [address] 73008- 1671 May, [facility] [id number] [place] [address] 69142- 7953 May, [facility] [id number] [place] [address] 02841- 0315 May, [facility] [id number] [place] [address] 45987- 8150 Apr, [facility] [address] 23374- 5430 Apr, Skin lesion of face 709.9 and Anxiety 300.00 [facility] [address] [place] [id number] [place] [address] 97102- 4773 March, [facility] [address] [id number] [place] [address]- 3149 14 Feb, 2015 [facility] [place] [facility] [address] [id number] [place] [address]- 6131 13 Feb, 2015 [facility] [place] [facility] [address] [id number] [place] [address]- 3190 Jan, [facility] [place] [facility] [address] [id number] [place] [address]- 4558 Jan, [facility] [place] [facility] [address] [id number] [place] [address]- 1202 Jan, [facility] [place] [facility] [address] [id number] [place] [address]- 1179 Jan, [facility] [place] [facility] [address] [id number] [place] [address]- 1699 Jan, [facility] [place] [facility] [address] [id number] [place] [address]- 7224 Jan, [facility] [place] [facility] [address] [id number] [place] [address]- 6811 Dec, [facility] [place] [facility] [address] [id number] [place] [address]- 9492 Dec, [facility] [place] [facility] [address] [id number] [place] [address]- 4787 Nov, [facility] [place] [facility] [address] [id number] [place] [address]- 3679 Nov, [facility] [place] [facility] [address] [id number] [place] [address]- 4299 Oct, [facility] [place] [facility] [address] [id number] [place] [address]- 0653 Oct, [facility] [place] [facility] [address] [id number] [place] [address]- 6096 Oct, [facility] [place] [facility] [address] [id number] [place] [address]- 1609 Oct, [facility] [place] [facility] [address] [id number] [place] [address]- 9088 Sep, [facility] [place] [facility] [address] [id number] [place] [address]- 9826 Sep, [facility] [place] [facility] [address] [id number] [place] 8418 Sep, [facility] [place] [facility] [address] [id number] [place] [address]- 8481 Sep, [facility] [place] [facility] [address] [id number] [place] [address]- 1982 Sep, [facility] [place] [facility] [address] [id number] [place] [address]- 7335 Sep, [facility] [place] [facility] [address] [id number] [place] [address]- 4259 Aug, [facility] [place] [facility] [address] [id number], [place] [address]- 4466 Aug, [facility] [place] [facility] [address] [id number], [place] [address]- 9182 Aug, [facility] [place] [facility] [address] [id number], [place] [address]- 9939 Aug, [facility] [place] [facility] [address] [id number], [place] [address]- 8446 Aug, [facility] [place] [facility] [address] [id number], [place] [address]- 5398 Aug, [facility] [place] [facility] [address] [id number] [place] [address]- 0435 Aug, [facility] [place] [facility] [address] [id number], [place] [address]- 2987 Aug, [facility] [place] [facility] [address] [id number] 5675 Aug, [facility] [place] [facility] [address] [id number] [place] [address]- 2272 Aug, [facility] [place] [facility] [address] [id number] [place] [address]- 6317 Jul, [facility] [place] [facility] [address] [id number] [place] [address]- 8195 Jul, [facility] [place] [facility] [address] [id number] [place] [address]- 8686 May, [facility] [place] [facility] [address] [id number] [place] [address]- 6481 May, [facility] [place] [facility] [address] [id number] [place] [address]- 7582 May, [facility] [place] [facility] [address] [id number] [place] [address]- 1278 May, [facility] [place] [facility] [address] [id number] [place] [address]- 5422 May, [facility] [place] [facility] [address] [id number] [place] [address]- 7197 May, [facility] [place] [facility] [address] [id number] [place] [address]- 8006 Apr, [facility] [place] [facility] [address] [id number] [place] [address]- 9883 Apr, [facility] [place] [facility] [address] [id number] [place] [address]- 1979 Apr, [facility] [place] [facility] [address] [id number] [place] [address]- 4748 Apr, [facility] [place] [facility] [address] [id number] [place] [address]- 3664 March, [facility] [place] [facility] [address] [id number] [place] [address]- 0310 March, [facility] [place] [facility] [address] [id number] [place] [address]- 9633 Feb, [facility] [place] [facility] [address] [id number] [place] [address]- 2796 Feb, [facility] [address] [id number] [place] [address]- 5635 Jan, [facility] [place] [facility] [address] [id number] [place] [address]- 2318 Jan, [facility] [place] [facility] [address] [id number] [place] [address]- 5855 Nov, [facility] [address] [id number] [place] [address]- 2398 Nov, [facility] [place] [facility] [address] [id number] [place] [address]- 8804 Nov, [facility] [address] [id number] [place] [address]- 3082 Nov, [facility] [address] [id number] [place] [address]- 0109 Nov, [facility] [address] [id number] [place] [address]- 0261 Nov, [facility] [address] [id number] [place] [address]- 3132 Oct, [facility] [place] [facility] [address] [id number] [place] [address]- 2546 Oct, [facility] [place] [facility] [address] [id number], [place] [address]- 2546 Aug, [facility] [place] [facility] [address] [id number] [place] [address]- 2546 Aug, [facility] [place] [facility] [address] [id number] [place] [address]- 2546 Jul, [facility] [place] [facility] [address] [id number] [place] [address]- 2546 Jun, [facility] [place] [facility] [address] [id number], [place] [address]- 2896 Jun, [facility] [id number], [place] [address]- 1936 Jun, [facility] [id number], [place] [address]- 6016 Jun, [facility] [id number], [place] [address] 2546 Jun, [facility] [address], [place] [address] 2546 Jun, [facility] [id number], [place] [address]- 0781 May, [facility] [address], [place] [address]- 8336 March, [facility] [address], [place] [address]- 9706 March, [facility] [id number], [place] [address]- 0876 Jan, IMMUNIZATIONS No Known Immunizations SOCIAL HISTORY Never Assessed REASON FOR VISIT ER f/u, pt. states still having alot of trouble with pain in lower back that radiates into buttock and into right leg, pt. was prescribed prednisone in the ER but never picked up due to not being able to afford, SYLVIA Crump PLAN OF CARE Activity Details Follow Up 3 Months Reason:[facility] VITAL SIGNS Height 66 in 2017-09-23 Weight 168.2 lbs 2017-09-23 Temperature 97.7 degrees Fahrenheit 2017-09-23 Heart Rate 80 bpm 2017-09-23 Respiratory Rate 20 2017-09-23 BMI 27.15 kg/m2 2017-09-23 Blood pressure systolic 147 mmHg 2017-09-23 Blood pressure diastolic 92 mmHg 2017-09-23 MEDICATIONS Medication Instructions Dosage Frequency Start Date End Date Duration Status Zocor 40 MG 1 tablet in the evening Once a day Orally 30 Active MetFORMIN HCl ER 500 mg Orally twice a day 1 tablet twice daily with food 12h 30 Aug, 2017 30 day(s) Active Lisinopril 20 mg Orally Once a day TAKE 1 TABLET BY MOUTH DAILY 24h 90 days Active Depakote 500 mg Orally 3 times a day 1 tablet 8h 22 Aug, 2014 Active Baclofen 10 mg Orally Three times a day 1 tablet with food or milk 8h May, Dec, 30 day(s) Active Carvedilol 6.25 MG Orally 2 times a day TAKE 1 TABLET BY MOUTH TWICE DAILY 12h 90 days Active Ultram 50 mg Orally 3 times a day 1 tablet as needed 8h 28 Active Mobic 7.5 MG Orally twice a day 1 tablet 12h 30 days Active ProAir HFA 108 (90 Base) MCG/ACT Inhalation every 4 hrs 2 puffs as needed 4h 19 Jul, 2017 7 days Active Abilify 15 mg Orally Once a day 1 tablet 24h 30 Aug, 2017 30 day(s) Active Sinemet 10-100 mg Orally Three times a day 1 tablet 8h 08 Apr, 2017 90 days Active Gabapentin 300 MG Orally 3 times a day 1 capsule 8h 30 Active Simvastatin 40 mg Orally Once a day TAKE 1 TABLET BY MOUTH EVERY EVENING 24h 90 days Active RESULTS Name Result Date Reference Range Xray : Spine, Lumbar 2-3 views (IN HOUSE) 2017-09-23 PROCEDURES Procedure Date Ordered Result Body Site X-RAY EXAM OF LOWER SPINE Sep 23, 2017 [facility] VISIT ESTABLISHED PATIENT Sep 23, 2017 INSTRUCTIONS MEDICATIONS ADMINISTERED No Known Medications [...]
--- OUTSIDE RECORDS SUMMARY | 2018-05-04 20:19 | XMS REPORT ---
Author Author VU MORALES [facility] Address [address] [place] [address] Care Team Providers Care Engineer Soils Name Role Phone VU MORALES Unavailable PROBLEMS Type Condition ICD9-CM Code XHA45-TW Code Onset Dates Condition Status SNOMED Code Problem Coronary atherosclerosis due to lipid rich plaque I25.83 Active 165838825056785 Problem Other chronic pain G89.29 Active 37504515 Problem Atherosclerotic heart disease of [place] coronary artery without angina pectoris I25.10 Active 115064871 Problem Acute right-sided low back pain with right-sided sciatica M54.41 Active 691187848 Problem Lumbar spondylosis M47.816 Active 199448361 Problem Parkinsons disease G20 Active 39021615 Problem Cervical stenosis of spine M48.02 Active 91527693 Problem 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 Active 590802754 Problem Hypercholesterolemia E78.0 Active 45534982 Problem Pure hypercholesterolemia E78.00 Active 681998322 Problem Depression F32.9 Active 16214303 Problem Pre-ulcerative calluses L84 Active 36808603 Problem Type 2 diabetes mellitus with other specified complication E11.69 Active 4945098 Problem Anxiety F41.9 Active 62852992 Problem HTN (hypertension) I10 Active 89109204 Problem Cervicalgia M54.2 Active [id number] ALLERGIES No Known Allergies ENCOUNTERS Encounter Location Date Diagnosis [facility] [address] [facility] [id number], [place] [address] March, [facility] [address] [id number], [place] [address] Feb, Cervicalgia M54.2 [facility] [address] [id number], [place] [address] Feb, Cervical stenosis of spine M48.02 [facility] [id number] [place] [address] 01480- 7351 Jan, Cervicalgia M54.2 [facility] [id number] [place] [address] 27700- 7591 Jan, [facility] [id number] [place] [address] 73673- 7803 Dec, Cervicalgia M54.2 [place] [address] [address] Dec, Controlled substance agreement signed Z79.899 [facility] [id number] [place] [address] 72343- 1223 Oct, Cervicalgia M54.2 [facility] [id number] [place] [address] 23488- 0022 Oct, Acute right-sided low back pain with right-sided sciatica M54.41 [place] [address] [address]- 5808 04 Oct, 2017 [place] [id number] [place] [address] 04432- 9230 28 Sep, 2017 Cervicalgia M54.2 [facility] [id number] [place] [address] 26708- 5129 14 Sep, 2017 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02 ; Acute right hip pain M25.551 ; Atherosclerotic heart disease of [place] coronary artery without angina pectoris I25.10 ; Hypercholesterolemia E78.0 ; Parkinsons disease G20 and Depression F32.9 [facility] [id number] [place] [address] 94689- 1745 Aug, Other chronic pain G89.29 [facility] [id number] [place] [address] 53552- 1142 Jul, Other chronic pain G89.29 [facility] [id number] [place] [address] 39680- 2986 Jul, [facility] [id number] [place] [address] 44484 -2588 Jul, Cough R05 and Bronchitis J40 [facility] [id number] [place] [address] 75932- 8365 Jun, Other chronic pain G89.29 [facility] [id number] [place] [address] 47972- 5563 Jun, [facility] [id number] [place] [address] 37709- 3892 Jun, Atherosclerotic heart disease of [place] coronary artery without angina pectoris I25.10 and Cervicalgia M54.2 [facility] [id number] [place] [address] 18202- 3662 Jun, Cervicalgia M54.2 [facility] [id number] [place] [address] 22973- 5983 May, Other chronic pain G89.29 [facility] [id number] [place] [address] 21354- 4723 May, [facility] [id number] [place] [address] 54796- 2947 May, [facility] [id number] [place] [address] 76127- 7581 May, [facility] [address] [id number], [place] [address] 5290 May, [facility] [id number] [place] [address] 16703- 2772 May, Type 2 diabetes mellitus with other specified complication E11.69 ; HTN (hypertension) I10 ; Atherosclerotic heart disease of [place] coronary artery without angina pectoris I25.10 ; Parkinsons disease G20 and Cervical stenosis of spine M48.02 [place] [id number] [place] [address] 63071- 0174 Apr, Cervicalgia M54.2 [facility] [id number] [place] [address] 21155- 7322 Apr, Type 2 diabetes mellitus with other specified complication E11.69 ; HTN (hypertension) I10 ; Depression F32.9 ; Atherosclerotic heart disease of [place] coronary artery without angina pectoris I25.10 ; Coronary atherosclerosis due to lipid rich plaque I25.83 ; Cervicalgia M54.2 ; Parkinsons disease G20 ; Chronic diarrhea K52.9 and Pure hypercholesterolemia E78.00 [facility] [id number] [place] [address] 67182- 0822 March, Other chronic pain G89.29 [facility] [id number] [place] [address] 40649- 8298 March, Other chronic pain G89.29 [facility] [id number] [place] [address] 18610- 3117 Feb, Cervical stenosis of spine M48.02 [facility] [address] [place] [address] 17657- 2287 Feb, Other chronic pain G89.29 [facility] [id number] [place] [address] 09533- 8815 Jan, [facility] [id number] [place] [address] 58514- 3836 Jan, Other chronic pain G89.29 [facility] [id number] [place] [address] 33938- 4849 08 Jan, 2017 Other chronic pain G89.29 [facility] [address] 55650- 3793 Jan, Type 2 diabetes mellitus with other specified complication E11.69 ; Atherosclerotic heart disease of [place] coronary artery without angina pectoris I25.10 ; Anxiety F41.9 ; HTN (hypertension) I10 ; Depression F32.9 ; Coronary atherosclerosis due to lipid rich plaque I25.83 ; Cervicalgia M54.2 ; Other chronic pain G89.29 and Functional 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 [facility] [id number] [place] [address] 44142- 8164 Nov, HTN (hypertension) I10 [place] [id number] [place] [address] 74590- 1690 03 Nov, 2016 Type 2 diabetes mellitus with other specified complication E11.69 ; Atherosclerotic heart disease of [place] coronary artery without angina pectoris I25.10 ; Hypercholesterolemia E78.0 ; Anxiety F41.9 ; Depression F32.9 ; Cervicalgia M54.2 and Functional 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 [facility] [id number] [place] [address] 80406- 5609 Oct, [facility] [id number] [place] [address] 13799- 4494 Oct, Neck pain M54.2 [facility] [id number] [place] [address] 09646- 6504 Sep, [facility] [id number] [place] [address] 11577- 5760 Aug, [facility] [id number] [place] [address] 02589- 7725 Aug, [facility] [id number] [place] [address] 40690 -9380 Jul, Visit for TB skin test Z11.1 and Screening for tuberculosis Z11.1 [place] [address] 81116- 2963 May, [facility] [address], [place] [address]- 0640 May, Neck pain M54.2 [facility] [address], [place] [address]- 4335 May, [facility] [address] [place] [address] 27886- 3722 Apr, Neck pain M54.2 [facility] [address] [place] [address] 00730- 3037 Feb, Neck pain M54.2 [facility] [id number] [place] [address] 88800- 1797 Feb, [facility] [address] [place] [address] 35910- 1725 Jan, Neck pain M54.2 [facility] [address], [place] [address]- 0315 Jan, [facility] [address] [place] [address] 49039- 6213 16 Jan, 2016 Neck pain M54.2 [facility] [address], [place] [address]- 3756 Jan, Neck pain M54.2 ; Type 2 diabetes mellitus with other specified complication E11.69 ; CAD (coronary artery disease) 414.00 ; Insomnia 780.52 ; Anxiety F41.9 ; Depression F32.9 ; Pre-ulcerative calluses L84 and Hypercholesterolemia E78.0 [facility] [address], [place] [address]- 6809 Nov, [facility] [address] [place] [address] 230542- 9249 Nov, Type 2 diabetes mellitus with other specified complication E11.69 ; Pre-ulcerative calluses L84 ; HTN (hypertension) I10 ; Hypercholesterolemia E78.0 ; Anxiety F41.9 ; Depression F32.9 ; Environmental allergies Z91.09 and Osteoarthritis M19.90 [facility] [id number] [place] [address] 41696- 3738 Sep, [facility] [id number] [place] [address] 14372- 4081 Aug, Allergic rhinitis, seasonal J30.2 [place] [address] 45525- 5577 Jul, [facility] [address] 62602- 8705 Jul, Other specified cardiac dysrhythmias 427.89 ; Essential hypertension, benign 401.1 ; Nondependent tobacco use disorder 305.1 ; Unspecified hereditary and idiopathic peripheral neuropathy 356.9 ; Diabetes mellitus without mention of complication, type II or unspecified type, not stated as uncontrolled 250.00 ; CAD (coronary artery disease) 414.00 ; Insomnia 780.52 and Depression 311 [facility] [address] 50456- 9648 Jul, [facility] [id number] [place] [address] 97636- 7092 Jul, [facility] [id number] [place] [address] 93419- 5722 May, [facility] [id number] [place] [address] 64471- 4409 May, [facility] [id number] [place] [address] 07694- 1430 May, [facility] [id number] [place] [address] 17296- 3851 Apr, [facility] [address] 57154- 3426 Apr, Skin lesion of face 709.9 and Anxiety 300.00 [facility] [id number] [place] [address] 51463- 2359 March, [facility] [place] [facility] [address] [id number] [place] [address]- 9476 14 Feb, 2015 [facility] [place] [facility] [address] [id number] [place] [address]- 8388 13 Feb, 2015 [facility] [place] [facility] [address] [id number] [place] [address]- 5636 Jan, [facility] [place] [facility] [address] [id number] [place] [address]- 8853 Jan, [facility] [place] [facility] [address] [id number] [place] [address]- 4926 Jan, [facility] [place] [facility] [address] [id number] [place] [address]- 0825 Jan, [facility] [place] [facility] [address] [id number] [place] [address]- 4525 Jan, [facility] [place] [facility] [address] [id number] [place] [address]- 7175 Jan, [facility] [place] [facility] [address] [id number] [place] [address]- 7779 Dec, [facility] [place] [facility] [address] [id number] [place] [address]- 7855 Dec, [facility] [place] [facility] [address] [id number] [place] [address]- 3574 Nov, [facility] [place] [facility] [address] [id number] [place] [address]- 7693 Nov, [facility] [place] [facility] [address] [id number] [place] 8327 Oct, [facility] [place] [facility] [address] [id number] [place] [address]- 3603 Oct, [facility] [place] [facility] [address] [id number] [place] [address]- 3500 Oct, [facility] [place] [facility] [address] [id number], [place] [address]- 9352 Oct, [facility] [place] [facility] [address] [id number] [place] [address]- 8020 Sep, [facility] [place] [facility] [address] [id number] [place] [address]- 4615 Sep, [facility] [place] [facility] [address] [id number] [place] [address]- 8994 Sep, [facility] [place] [facility] [address] [id number] [place] [address]- 1318 Sep, [facility] [place] [facility] [address] [id number] [place] [address]- 9254 Sep, [facility] [place] [facility] [address] [id number] [place] [address]- 7285 Sep, [facility] [place] [facility] [address] [id number] [place] [address]- 4475 Aug, [facility] [place] [facility] [address] [id number], [place] [address]- 1957 Aug, [facility] [place] [facility] [address] [id number] [place] [address]- 7520 Aug, [facility] [place] [facility] [address] [id number] [place] [address]- 5908 Aug, [facility] [place] [facility] [address] [id number], [place] [address]- 5050 Aug, [facility] [place] [facility] [address] [id number], [place] [address]- 5530 Aug, [facility] [place] [facility] [address] [id number] [place] [address]- 8417 Aug, [facility] [place] [facility] [address] [id number], [place] [address]- 8108 Aug, [facility] [place] [facility] [address] [id number], [place] [address]- 0992 Aug, [facility] [place] [facility] [address] [id number] [place] [address]- 2114 Aug, [facility] [address] [id number] [place] [address]- 8371 Jul, [facility] [place] [facility] [address] [id number] [place] [address]- 4543 Jul, [facility] [place] [facility] [address] [id number] [place] [address]- 2141 May, [facility] [place] [facility] [address] [id number] [place] [address]- 1652 May, [facility] [place] [facility] [address] [id number] [place] [address]- 4939 May, [facility] [place] [facility] [address] [id number] [place] [address]- 1479 May, [facility] [place] [facility] [address] [id number] [place] [address]- 8452 May, [facility] [place] [facility] [address] [id number] [place] [address]- 2435 May, [facility] [place] [facility] [address] [id number] [place] [address]- 9555 Apr, [facility] [place] [facility] [address] [id number] [place] [address]- 1582 Apr, [facility] [place] [facility] [address] [id number] [place] [address]- 9709 Apr, [facility] [place] [facility] [address] [id number] [place] [address]- 0246 Apr, [facility] [place] [facility] [address] [id number] [place] [address]- 7847 March, [facility] [place] [facility] [address] [id number] [place] [address]- 3800 March, [facility] [place] [facility] [address] [id number] [place] [address]- 9243 Feb, [facility] [address] [id number] [place] [address]- 6590 Feb, [facility] [place] [facility] [address] [id number] [place] [address]- 9526 Jan, [facility] [place] [facility] [address] [id number] [place] [address]- 4776 Jan, [facility] [place] [facility] [address] [id number] [place] [address]- 8027 Nov, [facility] [place] [facility] [address] [id number] [place] [address]- 2026 Nov, [facility] [place] [facility] [address] [id number] [place] [address]- 1596 Nov, [facility] [place] [facility] [address] [id number] [place] [address]- 9317 Nov, [facility] [place] [facility] [address] [id number], [place] [address]- 9272 Nov, [facility] [place] [facility] [address] [id number] [place] [address]- 4530 Nov, [facility] [place] [facility] [address] [facility] [id number], [place] [address]- 3756 Oct, [facility] [place] [facility] [address] [id number], [place] [address]- 7086 Oct, [facility] [place] [facility] [address] [id number], [place] [address]- 0626 Aug, [facility] [place] [facility] [address] [id number], [place] [address]- 6246 Aug, [facility] [place] [facility] [address] [id number], [place] [address]- 7606 Jul, [facility] [place] [facility] [address] [id number], [place] [address]- 7106 Jun, [facility] [place] [facility] [address] [id number], [place] [address]- 3396 Jun, [facility] [id number], [place] [address]- 3856 Jun, [facility] [address], [place] [address]- 0096 Jun, [facility] [id number], [place] [address]- 3226 Jun, [facility] [address], [place] [address]- 8607 Jun, [facility] [address], [place] [address]- 6199 May, [facility] [address], [place] [address]- 3583 March, [facility] [address], [place] [address]- 3650 March, [facility] [address], [place] [address]- 3284 Jan, IMMUNIZATIONS No Known Immunizations SOCIAL HISTORY Never Assessed REASON FOR VISIT congestion & cough x 1 day clarisa krishna PLAN OF CARE Activity Details Follow Up prn Reason: VITAL SIGNS Height 66 in 2017-08-09 Weight 172.6 lbs 2017-08-09 Temperature 97.8 degrees Fahrenheit 2017-08-09 Heart Rate 64 bpm 2017-08-09 Respiratory Rate 18 2017-08-09 Oximetry 93 % 2017-08-09 BMI 27.86 kg/m2 2017-08-09 Blood pressure systolic 148 mmHg 2017-08-09 Blood pressure diastolic 80 mmHg 2017-08-09 MEDICATIONS Medication Instructions Dosage Frequency Start Date End Date Duration Status Gabapentin 300 MG Orally 3 times a day 1 capsule 8h 30 days Active Lisinopril 20 mg Orally Once a day TAKE 1 TABLET BY MOUTH DAILY 24h Active Ultram 50 mg Orally 3 times a day 1 tablet as needed 8h 28 Active Mobic 7.5 MG Orally twice a day 1 tablet 12h 30 days Active Metformin HCl 1000 MG TAKE 1 TABLET BY MOUTH TWICE DAILY Active PredniSONE 20 MG Orally Once a day 2 tablet 24h Jul, Jul, 5 days Active Zocor 40 MG 1 tablet in the evening Once a day Orally 30 Active Carvedilol 6.25 MG TAKE 1 TABLET BY MOUTH TWICE DAILY 90 Active Depakote 500 mg Orally 3 times a day 1 tablet 8h Aug, Active Tizanidine HCl 4 MG Orally Three times a day 1 tablet as needed 8h Jan, Active ProAir HFA 108 (90 Base) MCG/ACT Inhalation every 4 hrs 2 puffs as needed 4h Jul, 7 days Active Carbidopa-Levodopa 10-100 MG TAKE 1 TABLET BY MOUTH THREE TIMES DAILY 30 Active Baclofen 10 mg Orally Three times a day 1 tablet with food or milk 8h May, Sep, 30 day(s) Active buspirone 30 mg by oral route 2 times a day take 1 tablet (30 mg) by oral route 2 times per day 12h Aug, Active Sinemet 10-100 mg Orally Three times a day 1 tablet 8h Apr, 30 day(s) Active Azithromycin 250 MG Orally Once a day 2 tablets on the first day, then 1 tablet daily for 4 days 24h Jul, Jul, 5 day(s) Active RESULTS Name Result Date Reference Range Xray : Chest (IN HOUSE) 2017-08-09 PROCEDURES Procedure Date Ordered Result Body Site NEBULIZER TREATMENT 2017-08-09 N/A CHEST X-RAY Aug 09, 2017 NEB/MDI RX INITIAL Aug 09, 2017 MEASURE BLOOD OXYGEN LEVEL Aug 09, 2017 [facility] VISIT ESTABLISHED PATIENT Aug 09, 2017 INSTRUCTIONS MEDICATIONS ADMINISTERED No Known Medications MEDICAL (GENERAL) HISTORY Type Description Date Medical History testicular cancer Medical History type II diabetes Medical History Arthritis Medical History hypertension Medical History depression Surgical History cholecystectomy 2000 Surgical History orchiectomy (R) r/t cancer Surgical History full mouth extraction Surgical History appendectomy 1968 Surgical History carpal tunnel 2017 Hospitalization History surgery
[2018-05-04 20:20] LABS: ABG BASE EXCESS -5.8 MMOL/L (-2.5-2.5); ABG OXYGEN SATURATION 99 % (94-100); ABG PCO2 46 MMHG (35-45); ABG PO2 157 MMHG (79-93); ABG TCO2 21.4 MMOL/L (21.0-31.0)
--- OUTSIDE RECORDS SUMMARY | 2018-05-04 20:20 | XMS REPORT ---
Author Author NILAM Lomax Organization [facility] Address [address] [place] [address] Care Team Providers Care Order Analyst Name Role Phone Dami NILAM Unavailable PROBLEMS Type Condition ICD9-CM Code TOS43-QU Code Onset Dates Condition Status SNOMED Code Problem Coronary atherosclerosis due to lipid rich plaque I25.83 Active 927013590388736 Problem Other chronic pain G89.29 Active 05100227 Problem Atherosclerotic heart disease of [place] coronary artery without angina pectoris I25.10 Active 357370008 Problem Acute right-sided low back pain with right-sided sciatica M54.41 Active 943930847 Problem Lumbar spondylosis M47.816 Active 281326793 Problem Parkinsons disease G20 Active 75935772 Problem Cervical stenosis of spine M48.02 Active 02587741 Problem 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 Active 935138762 Problem Hypercholesterolemia E78.0 Active 19873860 Problem Pure hypercholesterolemia E78.00 Active 474367676 Problem Depression F32.9 Active 34478442 Problem Pre-ulcerative calluses L84 Active 43150073 Problem Type 2 diabetes mellitus with other specified complication E11.69 Active 1284917 Problem Anxiety F41.9 Active 67145884 Problem HTN (hypertension) I10 Active 10872660 Problem Cervicalgia M54.2 Active [id number] ALLERGIES No Information ENCOUNTERS Encounter Location Date Diagnosis [facility] [id number], [place] [address] Feb, [facility] [address], [place] [address] Jan, [facility] [address], [place] [address] Jan, [facility] [id number] [place] [address] 08992- 5800 Dec, Cervicalgia M54.2 [facility] [id number] [place] [address] 93296- 6902 02 Dec, 2017 Controlled substance agreement signed Z79.899 [facility] [id number] [place] [address] 08394- 6406 Oct, Cervicalgia M54.2 [facility] [address] 28503- 5350 Oct, Acute right-sided low back pain with right-sided sciatica M54.41 [facility] [id number] [place] [address] 15430- 4717 Oct, [facility] [address] [address]365- 4313 Sep, Cervicalgia M54.2 [facility] [address] 69700- 5254 14 Sep, 2017 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 [facility] [id number] [place] [address] 80065- 2902 13 Sep, 2017 Lumbar back pain with radiculopathy affecting right lower extremity M54.17 [facility] [id number] [place] [address] 22891- 4307 03 Sep, 2017 Acute right-sided low back pain with right-sided sciatica M54.41 [facility] [id number] [place] [address] 53623- 9769 30 Aug, 2017 Type 2 diabetes mellitus with other specified complication E11.69 ; HTN (hypertension) I10 ; Cervicalgia M54.2 ; Cervical stenosis of spine M48.02 ; Acute right hip pain M25.551 ; Atherosclerotic heart disease of [place] coronary artery without angina pectoris I25.10 ; Hypercholesterolemia E78.0 ; Parkinsons disease G20 and Depression F32.9 [facility] [id number] [place] [address] 73532- 7807 Aug, Other chronic pain G89.29 [facility] [address], [place] [address] 66[address] Jul, Other chronic pain G89.29 [facility] [address], [place] [address] 21 Jul, 2017 [facility] [address], [place] [address] 19 Jul, 2017 Cough R05 and Bronchitis J40 [facility] [id number], [place] [address] 4232 30 Jun, 2017 Other chronic pain G89.29 [facility] [id number] [place] [address] 87860- 7573 Jun, [facility] [id number] [place] [address] 98229- 5640 Jun, Atherosclerotic heart disease of [place] coronary artery without angina pectoris I25.10 and Cervicalgia M54.2 [facility] [address], [place] [address] 3969 Jun, Cervicalgia M54.2 [facility] [id number] [place] [address] 06607- 6784 May, Other chronic pain G89.29 [facility] [address], [place] [address]- 9652 May, [facility] [address], [place] [address] May, [facility] [address], [place] [address]- 5943 May, [facility] [id number] [place] [address] 84079- 8613 May, [facility] [address], [place] [address]- 9857 May, Type 2 diabetes mellitus with other specified complication E11.69 ; HTN (hypertension) I10 ; Atherosclerotic heart disease of [place] coronary artery without angina pectoris I25.10 ; Parkinsons disease G20 and Cervical stenosis of spine M48.02 [facility] [id number] [place] [address] 68636- 6235 Apr, Cervicalgia M54.2 [facility] [id number] [place] [address] 01558- 7384 Apr, Type 2 diabetes mellitus with other specified complication E11.69 ; HTN (hypertension) I10 ; Depression F32.9 ; Atherosclerotic heart disease of [place] coronary artery without angina pectoris I25.10 ; Coronary atherosclerosis due to lipid rich plaque I25.83 ; Cervicalgia M54.2 ; Parkinsons disease G20 ; Chronic diarrhea K52.9 and Pure hypercholesterolemia E78.00 [facility] [id number] [place] [address] 37354- 3853 March, Other chronic pain G89.29 [facility] [address] 90841- 1803 March, Other chronic pain G89.29 [facility] [id number] [place] [address] 20727- 1610 Feb, Cervical stenosis of spine M48.02 [facility] [id number] [place] [address] 94474- 7505 Feb, Other chronic pain G89.29 [facility] [id number] [place] [address] 71142- 0348 Jan, [facility] [id number] [place] [address] 80916- 254 Jan, Other chronic pain G89.29 [facility] [id number] [place] [address] 14959- 7306 Jan, Other chronic pain G89.29 [facility] [id number] [place] [address] 28974- 7826 Jan, Type 2 diabetes mellitus with other specified complication E11.69 ; Atherosclerotic heart disease of [place] coronary artery without angina pectoris I25.10 ; Anxiety F41.9 ; HTN (hypertension) I10 ; Depression F32.9 ; Coronary atherosclerosis due to lipid rich plaque I25.83 ; Cervicalgia M54.2 ; Other chronic pain G89.29 and Functional 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 [facility] [id number] [place] [address] 97839- 9058 Nov, HTN (hypertension) I10 [facility] [address] 15477- 0455 03 Nov, 2016 Type 2 diabetes mellitus with other specified complication E11.69 ; Atherosclerotic heart disease of [place] coronary artery without angina pectoris I25.10 ; Hypercholesterolemia E78.0 ; Anxiety F41.9 ; Depression F32.9 ; Cervicalgia M54.2 and Functional 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 [facility] [id number] [place] [address] 50252- 6146 Oct, [facility] [address] 75323- 6075 Oct, Neck pain M54.2 [facility] [id number] [place] [address] 95470- 3750 Sep, [facility] [id number] [place] [address] 64028- 9853 Aug, [facility] [id number] [place] [address] 11603- 3610 Aug, [facility] [id number] [place] [address] 71417 -8208 Jul, Visit for TB skin test Z11.1 and Screening for tuberculosis Z11.1 [facility] [id number] [place] [address] 87232- 9607 May, [facility] [id number] [place] [address] 14852- 9684 May, Neck pain M54.2 [facility] [id number] [place] [address] 17173- 8672 May, [facility] [address], [place] [address]- 4110 Apr, Neck pain M54.2 [facility] [address] [place] [address] 655384- 6251 Feb, Neck pain M54.2 [facility] [id number] [place] [address] 52141- 7089 Feb, [facility] [id number] [place] [address] 88930- 6715 Jan, Neck pain M54.2 [facility] [id number] [place] [address] 51107- 5016 Jan, [facility] [id number] [place] [address] 55197- 8937 Jan, Neck pain M54.2 [facility] [id number] [place] [address] 84419- 2736 08 Jan, 2016 Neck pain M54.2 ; Type 2 diabetes mellitus with other specified complication E11.69 ; CAD (coronary artery disease) 414.00 ; Insomnia 780.52 ; Anxiety F41.9 ; Depression F32.9 ; Pre-ulcerative calluses L84 and Hypercholesterolemia E78.0 [facility] [id number] [place] [address] 49066- 2723 Nov, [facility] [id number] [place] [address] 43504- 4368 Nov, Type 2 diabetes mellitus with other specified complication E11.69 ; Pre-ulcerative calluses L84 ; HTN (hypertension) I10 ; Hypercholesterolemia E78.0 ; Anxiety F41.9 ; Depression F32.9 ; Environmental allergies Z91.09 and Osteoarthritis M19.90 [facility] [address], [place] [address]- 5586 Sep, [facility] [id number] [place] [address] 64246- 3696 Aug, Allergic rhinitis, seasonal J30.2 [facility] [id number] [place] [address] 84431- 9331 Jul, [facility] [id number] [place] [address] 27489- 1862 Jul, Other specified cardiac dysrhythmias 427.89 ; Essential hypertension, benign 401.1 ; Nondependent tobacco use disorder 305.1 ; Unspecified hereditary and idiopathic peripheral neuropathy 356.9 ; Diabetes mellitus without mention of complication, type II or unspecified type, not stated as uncontrolled 250.00 ; CAD (coronary artery disease) 414.00 ; Insomnia 780.52 and Depression 311 [facility] [address] 30359- 5896 Jul, [facility] [id number] [place] [address] 13472- 9663 Jul, [facility] [address] 99511- 2266 May, [facility] [id number] [place] [address] 93612- 1314 May, [facility] [id number] [place] [address] 12510- 8669 May, [facility] [id number] [place] [address] 34894- 2576 Apr, [facility] [id number] [place] [address] 78215- 3244 Apr, Skin lesion of face 709.9 and Anxiety 300.00 [facility] [id number] [place] [address] 44026- 0131 March, [facility] [id number] [place] [address] 37702- 0708 Feb, [facility] [id number] [place] [address] 73456- 6769 Feb, [facility] [id number] [place] [address] 17698- 6279 Jan, [facility] [place] [facility] [address] [id number] [place] [address]- 0843 Jan, [facility] [place] [facility] [address] [id number] [place] [address]- 1166 Jan, [facility] [place] [facility] [address] [id number] [place] [address]- 4865 Jan, [facility] [place] [facility] [address] [id number] [place] [address]- 8722 Jan, [facility] [place] [facility] [address] [id number] [place] [address]- 2800 Jan, [facility] [place] [facility] [address] [id number] [place] [address]- 5045 Dec, [facility] [place] [facility] [address] [id number] [place] [address]- 0829 Dec, [facility] [place] [facility] [address] [facility] [id number] [place] [address]- 8648 Nov, [facility] [place] [facility] [address] [id number] [place] [address]- 8398 Nov, [facility] [place] [facility] [address] [facility] [id number] [place] [address]- 3293 Oct, [facility] [place] [facility] [address] [id number] [place] [address]- 5823 Oct, [facility] [place] [facility] [address] [id number] [place] [address]- 8333 Oct, [facility] [place] [facility] [address] [id number] [place] [address]- 6824 Oct, [facility] [place] [facility] [address] [id number] [place] [address]- 8267 Sep, [facility] [place] [facility] [address] [facility] [id number] [place] [address]- 0731 Sep, [facility] [place] [facility] [address] [id number] [place] [address]- 9990 Sep, [facility] [place] [facility] [address] [id number] [place] [address]- 4721 Sep, [facility] [place] [facility] [address] [id number] [place] [address]- 5330 Sep, [facility] [place] [facility] [address] [id number] [place] [address]- 6979 Sep, [facility] [place] [facility] [address] [id number] [place] [address]- 5128 Aug, [facility] [place] [facility] [address] [id number] [place] [address]- 0371 Aug, [facility] [place] [facility] [address] [id number] [place] [address]- 8857 Aug, [facility] [place] [facility] [address] [id number] [place] [address]- 9294 Aug, [facility] [place] [facility] [address] [id number] [place] [address]- 1200 Aug, [facility] [place] [facility] [address] [id number] [place] [address]- 8852 Aug, [facility] [place] [facility] [address] [id number] [place] [address]- 9172 Aug, [facility] [place] [facility] [address] [id number] [place] [address]- 1557 Aug, [facility] [place] [facility] [address] [id number] [place] [address]- 7135 Aug, [facility] [place] [facility] [address] [id number] [place] [address]- 1152 Aug, [facility] [place] [facility] [address] [id number] [place] 6588 05 Jul, 2014 [facility] [place] [facility] [address] [id number] [place] [address]- 0645 Jul, [facility] [place] [facility] [address] [id number] [place] [address]- 2821 May, [facility] [place] [facility] [address] [id number] [place] [address]- 4895 May, [facility] [place] [facility] [address] [id number] [place] [address]- 1571 May, [facility] [place] [facility] [address] [id number] [place] [address]- 1550 May, [facility] [place] [facility] [address] [id number] [place] [address]- 1370 May, [facility] [place] [facility] [address] [id number] [place] [address]- 1058 May, [facility] [place] [facility] [address] [id number] [place] [address]- 5019 Apr, [facility] [place] [facility] [address] [id number] [place] [address]- 3786 Apr, [facility] [place] [facility] [address] [id number] [place] [address]- 0920 Apr, [facility] [place] [facility] [address] [id number] [place] [address]- 5691 Apr, [facility] [place] [facility] [address] [id number], [place] [address]- 7118 March, [facility] [place] [facility] [address] [id number], [place] [address]- 4488 March, [facility] [place] [facility] [address] [id number] [place] [address]- 5403 Feb, [facility] [place] [facility] [address] [id number] [place] [address]- 0722 Feb, [facility] [place] [facility] [address] [id number] [place] [address]- 5056 Jan, [facility] [place] [facility] [address] [id number] [place] [address]- 6281 Jan, [facility] [address] [id number] [place] [address]- 7584 Nov, [facility] [place] [facility] [address] [id number] [place] [address]- 3093 Nov, [facility] [place] [facility] [address] [id number] [place] [address]- 0478 Nov, [facility] [place] [facility] [address] [id number] [place] [address]- 7736 Nov, [facility] [place] [facility] [address] [id number] [place] [address]- 7785 Nov, [facility] [place] [facility] [address] [id number] [place] [address]- 5972 Nov, [facility] [place] [facility] [address] [id number] [place] [address]- 2255 Oct, [facility] [place] [facility] [address] [id number] [place] [address]- 9147 Oct, [facility] [place] [facility] [address] [id number] [place] [address]- 5732 Aug, [facility] [place] [facility] [address] [id number] [place] [address]- 6671 Aug, [facility] [place] [facility] [address] [id number] [place] [address]- 2999 Jul, [facility] [place] [facility] [address] [id number] [place] [address]- 9564 Jun, [facility] [place] [facility] [address] [id number] [place] [address]- 4612 Jun, [facility] [place] [facility] [address] [id number] [place] [address]- 0133 Jun, [facility] [place] [facility] [address] [id number] [place] [address]- 7979 Jun, [facility] [address] [facility] [id number], [place] [address]- 2546 Jun, [facility] [address] [facility] [id number], [place] [address]- 2546 Jun, [facility] [id number] [address]- 2546 May, [facility] [id number] [address]- 2546 March, [facility] [address] [facility] [id number], [place] [address]- 2546 March, [facility] [address] [facility] [id number], [place] [address]- 2546 Jan, IMMUNIZATIONS No Known Immunizations SOCIAL HISTORY Never Assessed REASON FOR VISIT Controlled Med Refill PLAN OF CARE VITAL SIGNS MEDICATIONS Medication Instructions Dosage Frequency Start Date End Date Duration Status Ultram 50 mg Orally 3 times a day 1 tablet as needed 8h Nov, 28 days Active RESULTS No Results PROCEDURES No Known [...]
--- OUTSIDE RECORDS SUMMARY | 2018-05-04 20:20 | XMS REPORT ---
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 Active 196641637 Problem Acute right-sided low back pain with right-sided sciatica M54.41 Active 744302262 Problem Lumbar spondylosis M47.816 Active 868631778 Problem Parkinsons disease G20 Active 03254744 Problem Cervical stenosis of spine M48.02 Active 63074266 Problem 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 Active 274718193 Problem Hypercholesterolemia E78.0 Active 14041219 Problem Pure hypercholesterolemia E78.00 Active 020786180 Problem Depression F32.9 Active 88753573 Problem Pre-ulcerative calluses L84 Active 78691174 Problem Type 2 diabetes mellitus with other specified complication E11.69 Active 5639250 Problem Anxiety F41.9 Active 69775282 Problem HTN (hypertension) I10 Active 22168576 Problem Cervicalgia M54.2 Active [id number] ALLERGIES No Information ENCOUNTERS Encounter Location Date Diagnosis [facility], [place] [id number], [place] [address] March, [facility], [place] [address], [place] [address] Jan, [facility], [place] [address], [place] [address] Jan, [facility], [place] [id number] [place] [address] 08706- 8728 Dec, Cervicalgia M54.2 [facility] [id number] [place] [address] 19254- 8019 02 Dec, 2017 Controlled substance agreement signed Z79.899 [facility] [id number] [place] [address] 48939- 4291 Oct, Cervicalgia M54.2 [facility] [place] [address] [address]25- 2040 Oct, Acute right-sided low back pain with right-sided sciatica M54.41 [facility] [id number] [place] [address] 37315- 3769 Oct, [facility] [address] [address]84- 2087 Sep, Cervicalgia M54.2 [facility] [place] [address] 76349- 6388 14 Sep, 2017 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02 ; Acute right hip pain M25.551 ; 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 ; Hypercholesterolemia E78.0 ; Parkinsons disease G20 and Depression F32.9 [facility] [id number] [place] [address] 53557- 5268 Aug, Other chronic pain G89.29 [facility], [place] [address], [place] [address] 7274 Jul, Other chronic pain G89.29 [facility], [place] [address], [place] [address] 5[address] 21 Jul, 2017 [facility] [address], [place] [address] 19 Jul, 2017 Cough R05 and Bronchitis J40 [facility], [place] [id number], [place] [address] 0[address] 30 Jun, 2017 Other chronic pain G89.29 [facility], [place] [id number] [place] [address] 55867- 0300 Jun, [facility] [place] [id number] [place] [address] 20544- 9269 Jun, 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 and Cervicalgia M54.2 [facility], [place] [address], [place] [address]- 7152 Jun, Cervicalgia M54.2 [facility], [place] [id number] [place] [address] 10904- 0514 May, Other chronic pain G89.29 [facility], [place] [address], [place] [address]- 0682 May, [facility], [place] [address], [place] [address]- 8463 May, [facility], [place] [address], [place] [address]- 9875 May, [facility], [place] [id number] [place] [address] 80739- 2794 May, [facility], [place] [address], [place] [address]- 6030 May, Type 2 diabetes mellitus with other specified complication E11.69 ; HTN (hypertension) I10 ; 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 ; Parkinsons disease G20 and Cervical stenosis of spine M48.02 [facility] [id number] [place] [address] 33191- 3279 Apr, Cervicalgia M54.2 [facility] [id number] [place] [address] 63027- 4646 Apr, Type 2 diabetes mellitus with other specified complication E11.69 ; HTN (hypertension) I10 ; Depression F32.9 ; 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 ; Coronary atherosclerosis due to lipid rich plaque I25.83 ; Cervicalgia M54.2 ; Parkinsons disease G20 ; Chronic diarrhea K52.9 and Pure hypercholesterolemia E78.00 [facility] [id number] [place] [address] 08465- 3940 March, Other chronic pain G89.29 [facility] [place] [address] 91963- 8718 March, Other chronic pain G89.29 [facility] [id number] [place] [address] 81875- 2000 Feb, Cervical stenosis of spine M48.02 [facility] [id number] [place] [address] 62722- 7767 Feb, Other chronic pain G89.29 [facility] [id number] [place] [address] 88725- 7613 Jan, [facility] [id number] [place] [address] 05133- 2542 Jan, Other chronic pain G89.29 [facility] [id number] [place] [address] 29464- 3966 Jan, Other chronic pain G89.29 [facility] [id number] [place] [address] 47380- 8982 Jan, Type 2 diabetes mellitus with other specified complication E11.69 ; 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 ; Anxiety F41.9 ; HTN (hypertension) I10 ; Depression F32.9 ; Coronary atherosclerosis due to lipid rich plaque I25.83 ; Cervicalgia M54.2 ; Other chronic pain G89.29 and Functional 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 [facility] [place] [id number] [place] [address] 77393- 8261 Nov, HTN (hypertension) I10 [place] [address] 80272- 5118 03 Nov, 2016 Type 2 diabetes mellitus with other specified complication E11.69 ; 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 ; Hypercholesterolemia E78.0 ; Anxiety F41.9 ; Depression F32.9 ; Cervicalgia M54.2 and Functional 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 [facility], [place] [id number] [place] [address] 60074- 5316 Oct, [place] [address] 90088- 6386 Oct, Neck pain M54.2 [facility] [place] [id number] [place] [address] 51025- 4609 Sep, [facility] [id number] [place] [address] 95672- 3575 Aug, [facility], [place] [id number] [place] [address] 12334- 9942 Aug, [facility] [id number] [place] [address] 46380 -4009 Jul, Screening for tuberculosis Z11.1 and Visit for TB skin test Z11.1 [facility] [place] [id number] [place] [address] 41651- 7657 May, [facility], [place] [id number] [place] [address] 92586- 9060 May, Neck pain M54.2 [facility], [place] [id number] [place] [address] 89961- 3664 May, [facility], [place] [address], [place] [address]- 1318 Apr, Neck pain M54.2 [facility], [place] [id number] [place] [address] 122576- 6984 Feb, Neck pain M54.2 [facility] [place] [id number] [place] [address] 35975- 4278 Feb, [facility] [place] [id number] [place] [address] 44242- 6909 Jan, Neck pain M54.2 [place] [id number] [place] [address] 46844- 5481 Jan, [facility] [place] [id number] [place] [address] 14349- 5524 Jan, Neck pain M54.2 [place] [id number] [place] [address] 00775- 2516 08 Jan, 2016 Neck pain M54.2 ; Type 2 diabetes mellitus with other specified complication E11.69 ; CAD (coronary artery disease) 414.00 ; Insomnia 780.52 ; Anxiety F41.9 ; Depression F32.9 ; Pre-ulcerative calluses L84 and Hypercholesterolemia E78.0 [place] [place] [id number] [place] [address] 05016- 2007 Nov, [facility] [id number] [place] [address] 10858- 7953 Nov, Type 2 diabetes mellitus with other specified complication E11.69 ; Pre-ulcerative calluses L84 ; HTN (hypertension) I10 ; Hypercholesterolemia E78.0 ; Anxiety F41.9 ; Depression F32.9 ; Environmental allergies Z91.09 and Osteoarthritis M19.90 [place] [address], [place] [address]- 9982 Sep, [facility] [id number] [place] [address] 94221- 8591 Aug, Allergic rhinitis, seasonal J30.2 [facility], [place] [id number] [place] [address] 66949- 2674 Jul, [facility] [place] [id number] [place] [address] 26117- 4054 Jul, Other specified cardiac dysrhythmias 427.89 ; Essential hypertension, benign 401.1 ; Nondependent tobacco use disorder 305.1 ; Unspecified hereditary and idiopathic peripheral neuropathy 356.9 ; Diabetes mellitus without mention of complication, type II or unspecified type, not stated as uncontrolled 250.00 ; CAD (coronary artery disease) 414.00 ; Insomnia 780.52 and Depression 311 [facility], [place] [address] 82399- 7085 Jul, [facility] [place] [id number] [place] [address] 91670- 1302 Jul, [facility], [place] [address] 01840- 4016 May, [facility], [place] [id number] [place] [address] 67375- 3004 May, [facility] [place] [id number] [place] [address] 86468- 0428 May, [facility] [place] [id number] [place] [address] 43934- 0906 Apr, [facility] [place] [id number] [place] [address] 56963- 2854 Apr, Skin lesion of face 709.9 and Anxiety 300.00 [facility], [place] [id number] [place] [address] 33447- 9845 March, [facility] [place] [id number] [place] [address] 37776- 8326 Feb, [facility] [place] [id number] [place] [address] 99132- 7762 Feb, [facility], [place] [id number] [place] [address] 44167- 3219 Jan, [facility] [place] [facility] [address] [id number] [place] [address]- 8315 Jan, [facility] [place] [facility] [address] [id number] [place] [address]- 7658 Jan, [facility] [place] [facility] [address] [id number] [place] [address]- 0294 Jan, [facility] [place] [facility] [address] [id number] [place] [address]- 7041 Jan, [facility] [place] [facility] [address] [id number] [place] [address]- 4813 Jan, [facility] [place] [facility] [address] [id number] [place] [address]- 4186 Dec, [facility] [place] [facility] [address] [id number] [place] [address]- 8439 Dec, [facility] [place] [facility] [address] [facility] [id number] [place] [address]- 5474 Nov, [facility] [place] [facility] [address] [id number] [place] [address]- 4814 Nov, [facility] [place] [facility] [address] [facility] [id number] [place] [address]- 6889 Oct, [facility] [place] [facility] [address] [id number] [place] [address]- 1672 Oct, [facility] [place] [facility] [address] [id number] [place] [address]- 0707 Oct, [facility] [place] [facility] [address] [id number] [place] [address]- 1243 Oct, [facility] [place] [facility] [address] [id number] [place] [address]- 0325 Sep, [facility] [place] [facility] [address] [facility] [id number] [place] [address]- 3131 Sep, [facility] [place] [facility] [address] [id number] [place] [address]- 2006 Sep, [facility] [place] [facility] [address] [id number] [place] [address]- 8640 Sep, [facility] [place] [facility] [address] [id number] [place] [address]- 9374 Sep, [facility] [place] [facility] [address] [id number] [place] [address]- 7351 Sep, [facility] [place] [facility] [address] [id number] [place] [address]- 6528 Aug, [facility] [place] [facility] [address] [id number] [place] [address]- 7924 Aug, [facility] [place] [facility] [address] [id number] [place] [address]- 4554 Aug, [facility] [place] [facility] [address] [id number] [place] [address]- 3083 Aug, [facility] [place] [facility] [address] [id number] [place] [address]- 3063 Aug, [facility] [place] [facility] [address] [id number] [place] [address]- 0056 Aug, [facility] [place] [facility] [address] [id number] [place] [address]- 2390 Aug, [facility] [place] [facility] [address] [id number] [place] [address]- 3555 Aug, [facility] [place] [facility] [address] [id number] [place] [address]- 4368 Aug, [facility] [place] [facility] [address] [id number] [place] [address]- 4762 Aug, [facility] [place] [facility] [address] [id number] [place] 2239 05 Jul, 2014 [facility] [place] [facility] [address] [id number] [place] [address]- 6684 Jul, [facility] [place] [facility] [address] [id number] [place] [address]- 5929 May, [facility] [place] [facility] [address] [id number] [place] [address]- 9918 May, [facility] [place] [facility] [address] [id number] [place] [address]- 3998 May, [facility] [place] [facility] [address] [id number] [place] [address]- 9918 May, [facility] [place] [facility] [address] [id number] [place] [address]- 0971 May, [facility] [place] [facility] [address] [id number] [place] [address]- 4828 May, [facility] [place] [facility] [address] [id number] [place] [address]- 4672 Apr, [facility] [place] [facility] [address] [id number] [place] [address]- 6931 Apr, [facility] [place] [facility] [address] [id number] [place] [address]- 6962 Apr, [facility] [place] [facility] [address] [id number] [place] [address]- 1345 Apr, [facility] [place] [facility] [address] [id number], [place] [address]- 0381 March, [facility] [place] [facility] [address] [id number], [place] [address]- 6490 March, [facility] [place] [facility] [address] [id number] [place] [address]- 7221 Feb, [facility] [place] [facility] [address] [id number] [place] [address]- 0314 Feb, [facility] [place] [facility] [address] [id number] [place] [address]- 0667 Jan, [facility] [place] [facility] [address] [id number] [place] [address]- 0675 Jan, [facility] [address] [id number] [place] [address]- 8742 Nov, [facility] [place] [facility] [address] [id number] [place] [address]- 2356 Nov, [facility] [place] [facility] [address] [id number] [place] [address]- 4649 Nov, [facility] [place] [facility] [address] [id number] [place] [address]- 2043 Nov, [facility] [place] [facility] [address] [id number] [place] [address]- 1803 Nov, [facility] [place] [facility] [address] [id number] [place] [address]- 7442 Nov, [facility] [place] [facility] [address] [id number] [place] [address]- 2921 Oct, [facility] [place] [facility] [address] [id number] [place] [address]- 1591 Oct, [facility] [place] [facility] [address] [id number] [place] [address]- 1090 Aug, [facility] [place] [facility] [address] [id number] [place] [address]- 5642 Aug, [facility] [place] [facility] [address] [id number] [place] [address]- 9380 Jul, [facility] [place] [facility] [address] [id number] [place] [address]- 9892 Jun, [facility] [place] [facility] [address] [id number] [place] [address]- 9318 Jun, [facility] [place] [facility] [address] [id number] [place] [address]- 5939 Jun, [facility] [place] [facility] [address] [id number] [place] [address]- 5504 Jun, [facility] [place] [address] [facility] [id number], [place] [address]- 8176 Jun, [facility] [place] [id number], [place] [address]- 2546 Jun, [facility] [place] [id number], [place] [address]- 9186 May, [facility] [place] [id number], [place] [address]- 2546 March, [facility] [place] [id number], [place] [address]- 8719 March, [facility] [place] [id number], [place] [address]- 5241 Jan, IMMUNIZATIONS No Known Immunizations SOCIAL HISTORY Never Assessed REASON FOR VISIT Wrist Brace PLAN OF CARE VITAL SIGNS MEDICATIONS Unknown [...]
[2018-05-04 20:21] LABS: ABG PH 7.26 (7.37-7.43)
--- OUTSIDE RECORDS SUMMARY | 2018-05-04 20:21 | XMS REPORT ---
Author Author NILAM Lomax Organization [facility] Address [address] [place] [address] Care Team Providers Care Export Documents Clerk Name Role Phone Dami NILAM Unavailable PROBLEMS Type Condition ICD9-CM Code YDI55-AZ Code Onset Dates Condition Status SNOMED Code Problem Coronary atherosclerosis due to lipid rich plaque I25.83 Active 777072493106125 Problem Other chronic pain G89.29 Active 46854366 Problem Atherosclerotic heart disease of [place] coronary artery without angina pectoris I25.10 Active 004856814 Problem Acute right-sided low back pain with right-sided sciatica M54.41 Active 447677190 Problem Lumbar spondylosis M47.816 Active 939854517 Problem Parkinsons disease G20 Active 16268565 Problem Cervical stenosis of spine M48.02 Active 75184834 Problem 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 Active 037269659 Problem Hypercholesterolemia E78.0 Active 53467052 Problem Pure hypercholesterolemia E78.00 Active 936702858 Problem Depression F32.9 Active 62498668 Problem Pre-ulcerative calluses L84 Active 69028310 Problem Type 2 diabetes mellitus with other specified complication E11.69 Active 7183206 Problem Anxiety F41.9 Active 51547980 Problem HTN (hypertension) I10 Active 10261855 Problem Cervicalgia M54.2 Active [id number] ALLERGIES No Information ENCOUNTERS Encounter Location Date Diagnosis [facility] [id number] [address] Feb, [facility] [address] [address] Jan, [facility] [address], [place] [address] Jan, [facility] [id number] [place] [address] 61751- 4328 Dec, Cervicalgia M54.2 [place] [id number] [place] [address] 16933- 2761 02 Dec, 2017 Controlled substance agreement signed Z79.899 [place] [id number] [place] [address] 95115- 7496 Oct, Cervicalgia M54.2 [place] [address] 76294- 3336 Oct, Acute right-sided low back pain with right-sided sciatica M54.41 [place] [id number] [place] [address] 86792- 7571 Oct, [place] [address] [address]- 6762 Sep, Cervicalgia M54.2 [place] [address] 72562- 6537 14 Sep, 2017 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 [place] [id number] [place] [address] 22184- 6639 13 Sep, 2017 Lumbar back pain with radiculopathy affecting right lower extremity M54.17 [place] [id number] [place] [address] 75586- 6405 03 Sep, 2017 Acute right-sided low back pain with right-sided sciatica M54.41 [place] [id number] [place] [address] 06559- 2135 30 Aug, 2017 Type 2 diabetes mellitus with other specified complication E11.69 ; HTN (hypertension) I10 ; Cervicalgia M54.2 ; Cervical stenosis of spine M48.02 ; Acute right hip pain M25.551 ; Atherosclerotic heart disease of [place] coronary artery without angina pectoris I25.10 ; Hypercholesterolemia E78.0 ; Parkinsons disease G20 and Depression F32.9 [place] [id number] [place] [address] 33689- 1536 Aug, Other chronic pain G89.29 [facility] [address], [place] [address] 52[address] Jul, Other chronic pain G89.29 [facility] [address], [place] [address] 31[address] 21 Jul, 2017 [facility] [address], [place] [address] 19 Jul, 2017 Cough R05 and Bronchitis J40 [facility] [id number], [place] [address] 4821 30 Jun, 2017 Other chronic pain G89.29 [facility] [id number] [place] [address] 93548- 9055 Jun, [facility] [id number] [place] [address] 54630- 9306 Jun, Atherosclerotic heart disease of [place] coronary artery without angina pectoris I25.10 and Cervicalgia M54.2 [facility] [address], [place] [address]- 3655 Jun, Cervicalgia M54.2 [facility] [id number] [place] [address] 46020- 7435 May, Other chronic pain G89.29 [facility] [address], [place] [address]- 1691 May, [facility] [address], [place] [address]- 4111 May, [facility] [address], [place] [address]- 7409 May, [facility] [id number] [place] [address] 42714- 4841 May, [facility] [address], [place] [address]- 5564 May, Type 2 diabetes mellitus with other specified complication E11.69 ; HTN (hypertension) I10 ; Atherosclerotic heart disease of [place] coronary artery without angina pectoris I25.10 ; Parkinsons disease G20 and Cervical stenosis of spine M48.02 [place] [id number] [place] [address] 86438- 8347 Apr, Cervicalgia M54.2 [place] [id number] [place] [address] 51691- 4389 Apr, Type 2 diabetes mellitus with other specified complication E11.69 ; HTN (hypertension) I10 ; Depression F32.9 ; Atherosclerotic heart disease of [place] coronary artery without angina pectoris I25.10 ; Coronary atherosclerosis due to lipid rich plaque I25.83 ; Cervicalgia M54.2 ; Parkinsons disease G20 ; Chronic diarrhea K52.9 and Pure hypercholesterolemia E78.00 [place] [id number] [place] [address] 51280- 6124 March, Other chronic pain G89.29 [place] [address] 11200- 8494 March, Other chronic pain G89.29 [place] [id number] [place] [address] 20097- 5025 Feb, Cervical stenosis of spine M48.02 [place] [id number] [place] [address] 69791- 4128 Feb, Other chronic pain G89.29 [place] [id number] [place] [address] 23657- 9136 Jan, [place] [id number] [place] [address] 07713- 254 Jan, Other chronic pain G89.29 [place] [id number] [place] [address] 78053- 3974 Jan, Other chronic pain G89.29 [place] [id number] [place] [address] 17344- 3058 Jan, Type 2 diabetes mellitus with other specified complication E11.69 ; Atherosclerotic heart disease of [place] coronary artery without angina pectoris I25.10 ; Anxiety F41.9 ; HTN (hypertension) I10 ; Depression F32.9 ; Coronary atherosclerosis due to lipid rich plaque I25.83 ; Cervicalgia M54.2 ; Other chronic pain G89.29 and Functional 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 [facility] [id number] [place] [address] 42401- 3630 Nov, HTN (hypertension) I10 [place] [address] 39713- 9423 03 Nov, 2016 Type 2 diabetes mellitus with other specified complication E11.69 ; Atherosclerotic heart disease of [place] coronary artery without angina pectoris I25.10 ; Hypercholesterolemia E78.0 ; Anxiety F41.9 ; Depression F32.9 ; Cervicalgia M54.2 and Functional 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 [place] [id number] [place] [address] 67291- 3153 Oct, [place] [address] 53265- 9993 Oct, Neck pain M54.2 [place] [id number] [place] [address] 27512- 3534 Sep, [place] [id number] [place] [address] 89764- 8842 Aug, [facility] [id number] [place] [address] 46258- 0509 Aug, [facility] [id number] [place] [address] 43605 -6802 Jul, Visit for TB skin test Z11.1 and Screening for tuberculosis Z11.1 [facility] [id number] [place] [address] 29581- 8619 May, [facility] [id number] [place] [address] 94110- 8489 May, Neck pain M54.2 [facility] [id number] [place] [address] 37281- 7289 May, [facility] [address], [place] [address]- 7401 Apr, Neck pain M54.2 [facility] [id number] [place] [address] 858628- 4825 Feb, Neck pain M54.2 [facility] [id number] [place] [address] 53044- 4332 Feb, [facility] [id number] [place] [address] 67607- 1081 Jan, Neck pain M54.2 [place] [id number] [place] [address] 96463- 1779 Jan, [facility] [id number] [place] [address] 92491- 6010 Jan, Neck pain M54.2 [place] [id number] [place] [address] 98803- 0029 08 Jan, 2016 Neck pain M54.2 ; Type 2 diabetes mellitus with other specified complication E11.69 ; CAD (coronary artery disease) 414.00 ; Insomnia 780.52 ; Anxiety F41.9 ; Depression F32.9 ; Pre-ulcerative calluses L84 and Hypercholesterolemia E78.0 [place] [id number] [place] [address] 77082- 0300 Nov, [place] [id number] [place] [address] 22305- 4414 Nov, Type 2 diabetes mellitus with other specified complication E11.69 ; Pre-ulcerative calluses L84 ; HTN (hypertension) I10 ; Hypercholesterolemia E78.0 ; Anxiety F41.9 ; Depression F32.9 ; Environmental allergies Z91.09 and Osteoarthritis M19.90 [place] [address], [place] [address]- 7553 Sep, [place] [id number] [place] [address] 49083- 6241 Aug, Allergic rhinitis, seasonal J30.2 [facility] [id number] [place] [address] 63208- 5290 Jul, [facility] [id number] [place] [address] 76714- 1378 Jul, Other specified cardiac dysrhythmias 427.89 ; Essential hypertension, benign 401.1 ; Nondependent tobacco use disorder 305.1 ; Unspecified hereditary and idiopathic peripheral neuropathy 356.9 ; Diabetes mellitus without mention of complication, type II or unspecified type, not stated as uncontrolled 250.00 ; CAD (coronary artery disease) 414.00 ; Insomnia 780.52 and Depression 311 [facility] [address] 10583- 0835 Jul, [facility] [id number] [place] [address] 31763- 9756 Jul, [facility] [address] 31302- 1423 May, [facility] [id number] [place] [address] 03614- 0862 May, [facility] [id number] [place] [address] 21613- 8255 May, [facility] [id number] [place] [address] 59655- 8720 Apr, [facility] [id number] [place] [address] 50389- 5890 Apr, Skin lesion of face 709.9 and Anxiety 300.00 [facility] [id number] [place] [address] 13691- 1282 March, [facility] [id number] [place] [address] 00137- 8172 Feb, [facility] [id number] [place] [address] 85387- 0259 Feb, [facility] [id number] [place] [address] 90231- 5764 Jan, [facility] [place] [facility] [address] [id number] [place] [address]- 7520 Jan, [facility] [place] [facility] [address] [id number] [place] [address]- 4221 Jan, [facility] [place] [facility] [address] [id number] [place] [address]- 1385 Jan, [facility] [place] [facility] [address] [id number] [place] [address]- 4391 Jan, [facility] [place] [facility] [address] [id number] [place] [address]- 8726 Jan, [facility] [place] [facility] [address] [id number] [place] [address]- 6248 Dec, [facility] [place] [facility] [address] [id number] [place] [address]- 4763 Dec, [facility] [place] [facility] [address] [facility] [id number] [place] [address]- 7609 Nov, [facility] [place] [facility] [address] [id number] [place] [address]- 5021 Nov, [facility] [place] [facility] [address] [facility] [id number] [place] [address]- 2034 Oct, [facility] [place] [facility] [address] [id number] [place] [address]- 8289 Oct, [facility] [place] [facility] [address] [id number] [place] [address]- 5374 Oct, [facility] [place] [facility] [address] [id number] [place] [address]- 6331 Oct, [facility] [place] [facility] [address] [id number] [place] [address]- 7986 Sep, [facility] [place] [facility] [address] [facility] [id number] [place] [address]- 4491 Sep, [facility] [place] [facility] [address] [id number] [place] [address]- 4315 Sep, [facility] [place] [facility] [address] [id number] [place] [address]- 1000 Sep, [facility] [place] [facility] [address] [id number] [place] [address]- 9185 Sep, [facility] [place] [facility] [address] [id number] [place] [address]- 7790 Sep, [facility] [place] [facility] [address] [id number] [place] [address]- 3782 Aug, [facility] [place] [facility] [address] [id number] [place] [address]- 3878 Aug, [facility] [place] [facility] [address] [id number] [place] [address]- 8094 Aug, [facility] [place] [facility] [address] [id number] [place] [address]- 0804 Aug, [facility] [place] [facility] [address] [id number] [place] [address]- 6552 Aug, [facility] [place] [facility] [address] [id number] [place] [address]- 7175 Aug, [facility] [place] [facility] [address] [id number] [place] [address]- 8161 Aug, [facility] [place] [facility] [address] [id number] [place] [address]- 4675 Aug, [facility] [place] [facility] [address] [id number] [place] [address]- 4520 Aug, [facility] [place] [facility] [address] [id number] [place] [address]- 3827 Aug, [facility] [place] [facility] [address] [id number] [place] 5828 05 Jul, 2014 [facility] [place] [facility] [address] [id number] [place] [address]- 7310 Jul, [facility] [place] [facility] [address] [id number] [place] [address]- 2179 May, [facility] [place] [facility] [address] [id number] [place] [address]- 3530 May, [facility] [place] [facility] [address] [id number] [place] [address]- 4894 May, [facility] [place] [facility] [address] [id number] [place] [address]- 5247 May, [facility] [place] [facility] [address] [id number] [place] [address]- 9993 May, [facility] [place] [facility] [address] [id number] [place] [address]- 0988 May, [facility] [place] [facility] [address] [id number] [place] [address]- 2126 Apr, [facility] [place] [facility] [address] [id number] [place] [address]- 6097 Apr, [facility] [place] [facility] [address] [id number] [place] [address]- 2503 Apr, [facility] [place] [facility] [address] [id number] [place] [address]- 0232 Apr, [facility] [place] [facility] [address] [id number] [address]- 5251 March, [facility] [place] [facility] [address] [id number], [place] [address]- 6127 March, [facility] [place] [facility] [address] [id number] [place] [address]- 1020 Feb, [facility] [place] [facility] [address] [id number] [place] [address]- 2126 Feb, [facility] [place] [facility] [address] [id number] [place] [address]- 6610 Jan, [facility] [place] [facility] [address] [id number] [place] [address]- 6665 Jan, [facility] [address] [id number] [place] [address]- 8302 Nov, [facility] [place] [facility] [address] [id number] [place] [address]- 8214 Nov, [facility] [place] [facility] [address] [id number] [place] [address]- 1598 Nov, [facility] [place] [facility] [address] [id number] [place] [address]- 5720 Nov, [facility] [place] [facility] [address] [id number] [place] [address]- 3567 Nov, [facility] [place] [facility] [address] [id number] [place] [address]- 8934 Nov, [facility] [place] [facility] [address] [id number] [place] [address]- 4887 Oct, [facility] [place] [facility] [address] [id number] [place] [address]- 9396 Oct, [facility] [place] [facility] [address] [id number] [place] [address]- 1167 Aug, [facility] [place] [facility] [address] [id number] [place] [address]- 6404 Aug, [facility] [place] [facility] [address] [id number] [place] [address]- 6302 Jul, [facility] [place] [facility] [address] [id number] [place] [address]- 4938 Jun, [facility] [place] [facility] [address] [id number] [place] [address]- 7673 Jun, [facility] [place] [facility] [address] [id number] [place] [address]- 8367 Jun, [facility] [place] [facility] [address] [id number] [place] [address]- 2632 Jun, [facility] [address] [facility] [id number] [address]- 3066 Jun, [facility] [id number] [address] 2546 Jun, [facility] [id number], [place] [address]- 9281 May, [facility] [id number] [address]- 0981 March, [facility] [id number] [address]- 5623 March, [facility] [id number] [address]- 4918 Jan, IMMUNIZATIONS No Known Immunizations SOCIAL HISTORY Never Assessed REASON FOR VISIT Faxed info to [facility] PLAN OF CARE VITAL SIGNS MEDICATIONS Unknown [...]
--- OUTSIDE RECORDS SUMMARY | 2018-05-04 20:21 | XMS REPORT ---
Author Author JAMES ARTEMIO Organization [facility] Address [address] [place] [address] Care Team Providers Care Beater Engineer Name Role Phone RAMIREZARTEMIO Rizo Unavailable PROBLEMS Type Condition ICD9-CM Code [id number] Code Onset Dates Condition Status SNOMED Code Problem Coronary atherosclerosis due to lipid rich plaque I25.83 Active 882556611396500 Problem Other chronic pain G89.29 Active 08598324 Problem Atherosclerotic heart disease of [place] coronary artery without angina pectoris I25.10 Active 871489665 Problem Acute right-sided low back pain with right-sided sciatica M54.41 Active 344888086 Problem Lumbar spondylosis M47.816 Active 250727397 Problem Parkinsons disease G20 Active 03770710 Problem Cervical stenosis of spine M48.02 Active 68649746 Problem 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 Active 634197359 Problem Hypercholesterolemia E78.0 Active 33976150 Problem Pure hypercholesterolemia E78.00 Active 697644694 Problem Depression F32.9 Active 54876193 Problem Pre-ulcerative calluses L84 Active 72974690 Problem Type 2 diabetes mellitus with other specified complication E11.69 Active 5159704 Problem Anxiety F41.9 Active 51732386 Problem HTN (hypertension) I10 Active 58340757 Problem Cervicalgia M54.2 Active [id number] ALLERGIES No Information ENCOUNTERS Encounter Location Date Diagnosis [facility] [address] [facility] [id number] [address] Apr, [facility] [address] [address] Apr, [facility] [address] [address] Feb, Cervicalgia M54.2 [facility] [address] [id number] [address] 9[address] Feb, Cervical stenosis of spine M48.02 [facility] [id number] [place] [address] 28041- 5232 Jan, Cervicalgia M54.2 [facility] [id number] [place] [address] 19072- 2546 Jan, Acute right-sided low back pain with right-sided sciatica M54.41 [facility] [address] [address]- 3683 Dec, Cervicalgia M54.2 [facility] [id number] [place] [address] 05913- 3252 Dec, Controlled substance agreement signed Z79.899 [facility] [id number] [place] [address] 75121- 8522 Oct, Cervicalgia M54.2 [facility] [id number] [place] [address] 92295- 6717 Oct, Acute right-sided low back pain with right-sided sciatica M54.41 [facility] [id number] [place] [address] 65179- 3556 04 Oct, 2017 [facility] [id number] [place] [address] 32768- 0037 28 Sep, 2017 Cervicalgia M54.2 [facility] [id number] [place] [address] 36014- 6485 14 Sep, 2017 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 [facility] [id number] [place] [address] 08706- 6153 13 Sep, 2017 Lumbar back pain with radiculopathy affecting right lower extremity M54.17 [facility] [id number] [place] [address] 83984- 9104 03 Sep, 2017 Acute right-sided low back pain with right-sided sciatica M54.41 [facility] [address] [place] [address] [address]- [address] Aug, Type 2 diabetes mellitus with other specified complication E11.69 ; HTN (hypertension) I10 ; Cervicalgia M54.2 ; Cervical stenosis of spine M48.02 ; Acute right hip pain M25.551 ; Atherosclerotic heart disease of [place] coronary artery without angina pectoris I25.10 ; Hypercholesterolemia E78.0 ; Parkinsons disease G20 and Depression F32.9 [facility] [address] 92450- 0319 Aug, Other chronic pain G89.29 [facility] [address] 17633- 1429 Jul, Other chronic pain G89.29 [place] [address] 47277- 1315 Jul, [facility] [address] [address] -[address]177 Jul, Cough R05 and Bronchitis J40 [place] [address] 57456- 5208 Jun, Other chronic pain G89.29 [place] [place] [address] 88653- 9008 Jun, [place] [facility] [address] 61571- 3386 Jun, Atherosclerotic heart disease of [place] coronary artery without angina pectoris I25.10 and Cervicalgia M54.2 [facility] [id number] [place] [address] 98025- 4053 Jun, Cervicalgia M54.2 [facility] [address] 90839- 3068 May, Other chronic pain G89.29 [place] [address] 46830- 5857 May, [place] [address] 84750- 9425 May, [facility] [address] [address] 9635 May, [facility] [id number] [place] [address] 70347- 9217 May, [facility] [address] [place] [address] 66047- 4420 May, Type 2 diabetes mellitus with other specified complication E11.69 ; HTN (hypertension) I10 ; Atherosclerotic heart disease of [place] coronary artery without angina pectoris I25.10 ; Parkinsons disease G20 and Cervical stenosis of spine M48.02 [facility] [id number] [place] [address] 88204- 0501 Apr, Cervicalgia M54.2 [facility] [id number] [place] [address] 72289- 0202 Apr, Type 2 diabetes mellitus with other specified complication E11.69 ; HTN (hypertension) I10 ; Depression F32.9 ; Atherosclerotic heart disease of [place] coronary artery without angina pectoris I25.10 ; Coronary atherosclerosis due to lipid rich plaque I25.83 ; Cervicalgia M54.2 ; Parkinsons disease G20 ; Chronic diarrhea K52.9 and Pure hypercholesterolemia E78.00 [facility] [address] [address] 3673 March, Other chronic pain G89.29 [facility] [id number] [place] [address] 21482- 8503 March, Other chronic pain G89.29 [facility] [address] [address] 60[address] Feb, Cervical stenosis of spine M48.02 [facility] [id number] [place] [address] 61393- 2496 Feb, Other chronic pain G89.29 [facility] [id number] [place] [address] 61573- 9140 Jan, [place] [id number] [place] [address] 11790- 5555 Jan, Other chronic pain G89.29 [facility] [address] 56601- 7380 Jan, Other chronic pain G89.29 [facility] [id number] [place] [address] 81887- 5006 Jan, Type 2 diabetes mellitus with other specified complication E11.69 ; Atherosclerotic heart disease of [place] coronary artery without angina pectoris I25.10 ; Anxiety F41.9 ; HTN (hypertension) I10 ; Depression F32.9 ; Coronary atherosclerosis due to lipid rich plaque I25.83 ; Cervicalgia M54.2 ; Other chronic pain G89.29 and Functional 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 [facility] [id number] [place] [address] 47941- 7221 Nov, HTN (hypertension) I10 [place] [address] 26604- 4536 Nov, Type 2 diabetes mellitus with other specified complication E11.69 ; Atherosclerotic heart disease of [place] coronary artery without angina pectoris I25.10 ; Hypercholesterolemia E78.0 ; Anxiety F41.9 ; Depression F32.9 ; Cervicalgia M54.2 and Functional 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 [facility] [id number] [place] [address] 20498- 0614 Oct, [facility] [address] 55600- 3940 Oct, Neck pain M54.2 [facility] [id number] [place] [address] 57098- 1140 Sep, [facility] [address] 41827- 9269 Aug, [facility] [address] 16051- 0566 Aug, [facility] [address] 19164 -1211 Jul, Visit for TB skin test Z11.1 and Screening for tuberculosis Z11.1 [facility] [id number] [place] [address] 20337- 9927 May, [facility] [id number] [place] [address] 01253- 1604 May, Neck pain M54.2 [facility] [id number] [place] [address] 23879- 6939 May, [facility] [id number] [place] [address] 20332- 8638 Apr, Neck pain M54.2 [facility] [id number] [place] [address] 83147- 4027 Feb, Neck pain M54.2 [facility] [id number] [place] [address] 64212- 6702 Feb, [facility] [id number] [place] [address] 22441- 2057 Jan, Neck pain M54.2 [facility] [id number] [place] [address] 31963- 5353 Jan, [facility] [id number] [place] [address] 31102- 6360 Jan, Neck pain M54.2 [facility] [id number] [place] [address] 10694- 2128 08 Jan, 2016 Neck pain M54.2 ; Type 2 diabetes mellitus with other specified complication E11.69 ; CAD (coronary artery disease) 414.00 ; Insomnia 780.52 ; Anxiety F41.9 ; Depression F32.9 ; Pre-ulcerative calluses L84 and Hypercholesterolemia E78.0 [facility] [address] [place] [address] 54669- 7959 Nov, [facility] [id number] [place] [address] 48391- 1925 Nov, Type 2 diabetes mellitus with other specified complication E11.69 ; Pre-ulcerative calluses L84 ; HTN (hypertension) I10 ; Hypercholesterolemia E78.0 ; Anxiety F41.9 ; Depression F32.9 ; Environmental allergies Z91.09 and Osteoarthritis M19.90 [facility] [id number] [place] [address] 11756- 7284 Sep, [place] [address] 05302- 8175 Aug, Allergic rhinitis, seasonal J30.2 [place] [address] 69571- 2638 Jul, [address] 89015- 0189 Jul, Other specified cardiac dysrhythmias 427.89 ; Essential hypertension, benign 401.1 ; Nondependent tobacco use disorder 305.1 ; Unspecified hereditary and idiopathic peripheral neuropathy 356.9 ; Diabetes mellitus without mention of complication, type II or unspecified type, not stated as uncontrolled 250.00 ; CAD (coronary artery disease) 414.00 ; Insomnia 780.52 and Depression [address] 68610- 5057 Jul, [place] [id number] [place] [address] 05582- 3868 Jul, [place] [place] [id number] [place] [address] 02141- 4111 May, [facility] [id number] [place] [address] 82968- 7930 May, [place] [address] 84106- 9121 May, [facility] [id number] [place] [address] 57104- 9250 Apr, [facility] [id number] [place] [address] 03958- 8429 Apr, Skin lesion of face 709.9 and Anxiety 300.00 [facility] [address] [id number] [place] [address]- 6476 March, [facility] [address] [id number] [place] [address]- 7056 Feb, [facility] [address] [id number] [place] [address]- 1836 Feb, [facility] [address] [id number] [place] [address]- 4403 Jan, [facility] [address] [facility] [id number] [place] [address]- 1728 Jan, [facility] [address] [id number] [place] [address]- 1419 Jan, [facility] [address] [place] [address]- 3987 Jan, [facility] [address] [id number] [place] [address]- 2089 Jan, [facility] [address] [id number] [place] [address]- 4244 Jan, [facility] [address] [id number] [place] [address]- 4468 Dec, [facility] [address] [address]28 Dec, [facility] [address] [id number] [address]- 1495 Nov, [facility] [address] [facility] [id number] [place] [address]- 8361 Nov, [facility] [address] [id number] [address]- 6662 Oct, [facility] [address] [id number] [place] [address]- 9735 Oct, [facility] [place] [facility] [address] [facility] [id number] [place] [address]- 0270 Oct, [facility] [place] [facility] [address] [id number] [place] [address]- 4694 Oct, [facility] [place] [facility] [address] [id number] [place] [address]- 5387 Sep, [facility] [place] [facility] [address] [id number] [place] [address]- 1707 Sep, [facility] [place] [facility] [address] [id number] [place] [address]- 9131 Sep, [facility] [place] [facility] [address] [id number] [place] [address]- 1421 Sep, [facility] [place] [facility] [address] [id number] [place] [address]- 9453 Sep, [facility] [place] [facility] [address] [id number] [place] [address]- 7487 Sep, [facility] [place] [facility] [address] [id number] [place] [address]- 2683 Aug, [facility] [place] [facility] [address] [id number] [place] [address]- 0538 Aug, [facility] [place] [facility] [address] [id number] [place] [address]- 0384 Aug, [facility] [place] [facility] [address] [id number] [place] [address]- 0082 Aug, [facility] [place] [facility] [address] [id number] [place] [address]- 3514 Aug, [facility] [place] [facility] [address] [id number] [place] [address]- 2130 Aug, [facility] [place] [facility] [address] [id number] [place] [address]- 3081 Aug, [facility] [place] [facility] [address] [id number] [place] [address]- 1300 Aug, [facility] [place] [facility] [address] [id number] [place] [address]- 4870 Aug, [facility] [place] [facility] [address] [id number] [place] [address]- 0345 Aug, [facility] [place] [facility] [address] [id number] [place] [address]758 Jul, [facility] [place] [facility] [address] [id number] [place] [address]- 8605 Jul, [facility] [place] [facility] [address] [id number] [place] [address]- 6673 May, [facility] [place] [facility] [address] [id number] [place] [address]- 8531 May, [facility] [place] [facility] [address] [id number] [place] [address]- 0047 May, [facility] [place] [facility] [address] [id number] [place] [address]- 5370 May, [facility] [place] [facility] [address] [id number] [place] [address]- 9112 May, [facility] [place] [facility] [address] [id number] [place] [address]- 4028 May, [facility] [place] [facility] [address] [id number] [place] [address]- 1080 Apr, [facility] [place] [facility] [address] [id number] [place] [address]- 9754 Apr, [facility] [place] [facility] [address] [id number] [place] [address]- 9348 Apr, [facility] [place] [facility] [address] [id number] [place] [address]- 9712 Apr, [facility] [place] [facility] [address] [id number] [place] [address]37 March, [facility] [place] [facility] [address] [id number] [place] [address]- 9295 March, [facility] [address] [id number] [place] [address]- 9863 Feb, [facility] [place] [facility] [address] [id number] [place] [address]- 5893 Feb, [facility] [place] [facility] [address] [id number] [place] [address]- 1293 Jan, [facility] [place] [facility] [address] [id number] [place] [address]- 2845 Jan, [facility] [place] [facility] [address] [id number] [place] [address]- 1970 Nov, [facility] [place] [facility] [address] [id number] [place] [address]- 0668 Nov, [facility] [address] [id number] [place] [address]- 1426 Nov, [facility] [place] [facility] [address] [id number] [place] [address]- 5841 Nov, [facility] [place] [facility] [address] [id number] [place] [address]- 9912 Nov, [facility] [place] [facility] [address] [id number] [place] [address]- 9294 Nov, [facility] [place] [facility] [address] [id number] [place] [address]- 9210 Oct, [facility] [place] [facility] [address] [id number] [place] [address]- 9984 Oct, [facility] [place] [facility] [address] [id number] [place] [address]- 4916 Aug, [facility] [place] [facility] [address] [id number] [place] [address]- 3546 Aug, [facility] [place] [facility] [address] [id number] [address]- 1916 Jul, [facility] [place] [facility] [address] [facility] [id number] [address]- 5248 Jun, [facility] [address] [facility] [id number] [place] [address]- 7920 Jun, [facility] [address] [facility] [id number] [place] [address]- 3253 Jun, [facility] [address] [facility] [id number] [place] [address]- 7553 Jun, [facility] [address] [facility] [id number] [place] [address]- 4329 Jun, [facility] [address] [facility] [id number] [place] [address]- 6249 Jun, [facility] [address] [address]- 7657 May, [facility] [address] [address]- 5175 March, [facility] [address] [id number] [address]- 9558 March, [facility] [address] [id number] [address]- 7661 Jan, IMMUNIZATIONS No Known Immunizations SOCIAL HISTORY [...]
[2018-05-04 20:22] LABS: ALLENS TEST YES-POS; INSPIRED O2 2L NC; VENTILATOR NO
--- OUTSIDE RECORDS SUMMARY | 2018-05-04 20:22 | XMS REPORT ---
Author Author NILAM MCDONALD Organization [facility] Address [address] [place] [address] Care Team Providers Care Aluminum Boats Assembler Name Role Phone NILAM MCDONALD Unavailable PROBLEMS Type Condition ICD9-CM Code [id number] Code Onset Dates Condition Status SNOMED Code Problem HTN (hypertension) I10 Active 97601691 Problem Anxiety F41.9 Active 07771790 Problem Depression F32.9 Active 33561016 Problem Pure hypercholesterolemia E78.00 Active 820854038 Problem Type 2 diabetes mellitus with other specified complication E11.69 Active 4465731 Problem Pre-ulcerative calluses L84 Active 76031598 Problem Parkinsons disease G20 Active 48009532 Problem Cervical stenosis of spine M48.02 Active 34511507 Problem Coronary atherosclerosis due to lipid rich plaque I25.83 Active 163298272383199 Problem Cervicalgia M54.2 Active 632745470471597 Problem Other chronic pain G89.29 Active 27154214 Problem Atherosclerotic heart disease of [place] coronary artery without angina pectoris I25.10 Active 475858844 ALLERGIES No Information SOCIAL HISTORY Never Assessed PLAN OF CARE VITAL SIGNS MEDICATIONS Medication Instructions Dosage Frequency Start Date End Date Duration Status Ultram 50 mg Orally 3 times a day 1 tablet as needed 8h Nov, March, 28 days Active RESULTS No Results PROCEDURES [...]
--- OUTSIDE RECORDS SUMMARY | 2018-05-04 20:22 | XMS REPORT ---
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 Name Role Phone DEE ORTIZ Unavailable PROBLEMS Type Condition ICD9-CM Code IPC87-FC Code Onset Dates Condition Status SNOMED Code Problem Coronary atherosclerosis due to lipid rich plaque I25.83 Active [id number] Problem Other chronic pain G89.29 Active 92923259 Problem Atherosclerotic heart disease of [place] coronary artery without angina pectoris I25.10 Active 391181570 Problem Acute right-sided low back pain with right-sided sciatica M54.41 Active 003479072 Problem Lumbar spondylosis M47.816 Active 533566956 Problem Parkinsons disease G20 Active 95403659 Problem Cervical stenosis of spine M48.02 Active 86914837 Problem 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 Active 866772378 Problem Hypercholesterolemia E78.0 Active 13950106 Problem Pure hypercholesterolemia E78.00 Active 454028280 Problem Depression F32.9 Active 07895756 Problem Pre-ulcerative calluses L84 Active 30440560 Problem Type 2 diabetes mellitus with other specified complication E11.69 Active 7086296 Problem Anxiety F41.9 Active 79473617 Problem HTN (hypertension) I10 Active 78657089 Problem Cervicalgia M54.2 Active [id number] ALLERGIES No Information ENCOUNTERS Encounter Location Date Diagnosis [facility] [place] [address] [facility] [id number] [address] March, [facility] [place] [address], [place] [address] Feb, Cervicalgia M54.2 [facility] [place] [address] [id number], [place] [address] Feb, Cervical stenosis of spine M48.02 [facility] [place] [id number] [place] [address] 01614- 1152 Jan, Cervicalgia M54.2 [facility] [place] [id number] [place] [address] 82240- 6066 Jan, [facility] [place] [id number] [place] [address] 23947- 2886 Dec, Cervicalgia M54.2 [facility] [place] [id number] [place] [address] 94114- 3452 Dec, Controlled substance agreement signed Z79.899 [facility] [place] [id number] [place] [address] 81530- 9569 Oct, Cervicalgia M54.2 [place] [id number] [place] [address] 81381- 5988 Oct, Acute right-sided low back pain with right-sided sciatica M54.41 [place] [id number] [place] [address] 93294- 7844 04 Oct, 2017 [place] [id number] [place] [address] 92997- 1802 28 Sep, 2017 Cervicalgia M54.2 [place] [id number] [place] [address] 26790- 9966 14 Sep, 2017 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 [place] [id number] [place] [address] 30736- 7037 13 Sep, 2017 Lumbar back pain with radiculopathy affecting right lower extremity M54.17 [place] [id number] [place] [address] 35328- 5821 03 Sep, 2017 Acute right-sided low back pain with right-sided sciatica M54.41 [place] [id number] [place] [address] 52182- 8171 30 Aug, 2017 Type 2 diabetes mellitus with other specified complication E11.69 ; HTN (hypertension) I10 ; Cervicalgia M54.2 ; Cervical stenosis of spine M48.02 ; Acute right hip pain M25.551 ; Atherosclerotic heart disease of [place] coronary artery without angina pectoris I25.10 ; Hypercholesterolemia E78.0 ; Parkinsons disease G20 and Depression F32.9 [facility] [place] [id number] [place] [address] 48207- 7452 Aug, Other chronic pain G89.29 [facility] [place] [id number] [place] [address] 35426- 9722 Jul, Other chronic pain G89.29 [facility] [place] [id number] [place] [address] 26557- 0788 Jul, [facility] [id number] [place] [address] 96599 -1314 Jul, Cough R05 and Bronchitis J40 [facility] [place] [id number] [place] [address] 41152- 4530 Jun, Other chronic pain G89.29 [facility] [place] [id number] [place] [address] 16030- 2517 Jun, [facility] [place] [id number] [place] [address] 24193- 4398 Jun, Atherosclerotic heart disease of [place] coronary artery without angina pectoris I25.10 and Cervicalgia M54.2 [facility] [place] [id number] [place] [address] 18695- 0696 Jun, Cervicalgia M54.2 [facility] [place] [id number] [place] [address] 90320- 1250 May, Other chronic pain G89.29 [facility] [place] [id number] [place] [address] 71148- 2076 May, [facility] [place] [id number] [place] [address] 47270- 1924 May, [facility] [place] [id number] [place] [address] 61372- 6011 May, [place] [address] [address] 7903 May, [place] [id number] [place] [address] 97014- 0904 May, Type 2 diabetes mellitus with other specified complication E11.69 ; HTN (hypertension) I10 ; Atherosclerotic heart disease of [place] coronary artery without angina pectoris I25.10 ; Parkinsons disease G20 and Cervical stenosis of spine M48.02 [place] [id number] [place] [address] 93764- 1333 Apr, Cervicalgia M54.2 [place] [id number] [place] [address] 06404- 5953 Apr, Type 2 diabetes mellitus with other specified complication E11.69 ; HTN (hypertension) I10 ; Depression F32.9 ; Atherosclerotic heart disease of [place] coronary artery without angina pectoris I25.10 ; Coronary atherosclerosis due to lipid rich plaque I25.83 ; Cervicalgia M54.2 ; Parkinsons disease G20 ; Chronic diarrhea K52.9 and Pure hypercholesterolemia E78.00 [place] [id number] [place] [address] 18187- 0465 March, Other chronic pain G89.29 [place] [id number] [place] [address] 24458- 6006 March, Other chronic pain G89.29 [place] [id number] [place] [address] 94231- 2928 Feb, Cervical stenosis of spine M48.02 [facility] [place] [id number] [place] [address] 20450- 2319 Feb, Other chronic pain G89.29 [place] [id number] [place] [address] 25819- 6058 Jan, [place] [id number] [place] [address] 32035- 3320 Jan, Other chronic pain G89.29 [place] [id number] [place] [address] 14637- 7638 08 Jan, 2017 Other chronic pain G89.29 [facility] [place] [id number] [place] [address] 14617- 4891 Jan, Type 2 diabetes mellitus with other specified complication E11.69 ; Atherosclerotic heart disease of [place] coronary artery without angina pectoris I25.10 ; Anxiety F41.9 ; HTN (hypertension) I10 ; Depression F32.9 ; Coronary atherosclerosis due to lipid rich plaque I25.83 ; Cervicalgia M54.2 ; Other chronic pain G89.29 and Functional 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 [facility] [place] [id number] [place] [address] 37808- 9104 Nov, HTN (hypertension) I10 [place] [id number] [place] [address] 65873- 6749 03 Nov, 2016 Type 2 diabetes mellitus with other specified complication E11.69 ; Atherosclerotic heart disease of [place] coronary artery without angina pectoris I25.10 ; Hypercholesterolemia E78.0 ; Anxiety F41.9 ; Depression F32.9 ; Cervicalgia M54.2 and Functional 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 [facility] [place] [id number] [place] [address] 00896- 6368 Oct, [place] [id number] [place] [address] 10480- 7973 Oct, Neck pain M54.2 [place] [id number] [place] [address] 89695- 7048 Sep, [facility] [place] [id number] [place] [address] 31664- 7122 Aug, [facility] [place] [id number] [place] [address] 27085- 4135 Aug, [facility] [id number] [place] [address] 85782 -1955 Jul, Visit for TB skin test Z11.1 and Screening for tuberculosis Z11.1 [place] [address] 22736- 9667 May, [facility] [place] [address] [address]- 8188 May, Neck pain M54.2 [facility] [place] [address] [place] [address] 61336- 7596 May, [facility] [place] [address] [place] [address] 49041- 0621 Apr, Neck pain M54.2 [facility] [place] [address] [place] [address] 81097- 6192 Feb, Neck pain M54.2 [facility] [place] [id number] [place] [address] 01948- 5911 Feb, [facility] [place] [address] [place] [address] 60683- 9478 Jan, Neck pain M54.2 [facility] [place] [address], [place] [address]- 2745 Jan, [facility] [place] [address] [place] [address] 72472- 9370 16 Jan, 2016 Neck pain M54.2 [facility] [place] [address], [place] [address]- 5722 Jan, Neck pain M54.2 ; Type 2 diabetes mellitus with other specified complication E11.69 ; CAD (coronary artery disease) 414.00 ; Insomnia 780.52 ; Anxiety F41.9 ; Depression F32.9 ; Pre-ulcerative calluses L84 and Hypercholesterolemia E78.0 [facility] [place] [address], [place] [address]- 0281 Nov, [facility] [place] [address] [place] [address] 91412- 8393 Nov, Type 2 diabetes mellitus with other specified complication E11.69 ; Pre-ulcerative calluses L84 ; HTN (hypertension) I10 ; Hypercholesterolemia E78.0 ; Anxiety F41.9 ; Depression F32.9 ; Environmental allergies Z91.09 and Osteoarthritis M19.90 [facility] [place] [id number] [place] [address] 29151- 7878 Sep, [facility] [place] [id number] [place] [address] 24206- 5805 Aug, Allergic rhinitis, seasonal J30.2 [place] [address] 31599- 1420 Jul, [facility] [place] [address] 46049- 5760 Jul, Other specified cardiac dysrhythmias 427.89 ; Essential hypertension, benign 401.1 ; Nondependent tobacco use disorder 305.1 ; Unspecified hereditary and idiopathic peripheral neuropathy 356.9 ; Diabetes mellitus without mention of complication, type II or unspecified type, not stated as uncontrolled 250.00 ; CAD (coronary artery disease) 414.00 ; Insomnia 780.52 and Depression 311 [facility] [place] [address] 51384- 1106 Jul, [facility] [place] [id number] [place] [address] 65843- 5946 Jul, [facility] [place] [id number] [place] [address] 41031- 9768 May, [facility] [place] [id number] [place] [address] 22772- 0965 May, [facility] [place] [id number] [place] [address] 90787- 1702 May, [facility] [place] [id number] [place] [address] 10960- 0867 Apr, [facility] [place] [address] 39920- 8728 Apr, Skin lesion of face 709.9 and Anxiety 300.00 [facility] [place] [id number] [place] [address] 66268- 3956 March, [facility] [place] [facility] [address] [id number] [place] [address]- 8897 14 Feb, 2015 [facility] [place] [facility] [address] [id number] [place] [address]- 2323 Feb, [facility] [place] [facility] [address] [id number] [place] [address]- 6530 Jan, [facility] [place] [facility] [address] [id number] [place] [address]- 9573 Jan, [facility] [place] [facility] [address] [id number] [place] [address]- 0454 Jan, [facility] [place] [facility] [address] [id number] [place] [address]- 9896 Jan, [facility] [place] [facility] [address] [id number] [place] [address]- 7564 Jan, [facility] [place] [facility] [address] [id number] [place] [address]- 2857 Jan, [facility] [place] [facility] [address] [id number] [place] [address]- 1131 Dec, [facility] [place] [facility] [address] [id number] [place] [address]- 8371 Dec, [facility] [place] [facility] [address] [id number] [place] [address]- 1614 Nov, [facility] [place] [facility] [address] [id number] [place] [address]- 3835 Nov, [facility] [place] [facility] [address] [id number] [place] 4667 Oct, [facility] [place] [facility] [address] [id number] [place] [address]- 6856 Oct, [facility] [place] [facility] [address] [id number] [place] [address]- 7287 Oct, [facility] [place] [facility] [address] [id number] [place] [address]- 0857 Oct, [facility] [place] [facility] [address] [id number] [place] [address]- 5854 Sep, [facility] [place] [facility] [address] [id number] [place] [address]- 2695 Sep, [facility] [place] [facility] [address] [id number] [place] [address]- 1330 Sep, [facility] [place] [facility] [address] [id number] [place] [address]- 3633 Sep, [facility] [place] [facility] [address] [id number] [place] [address]- 7805 Sep, [facility] [place] [facility] [address] [id number] [place] [address]- 6972 Sep, [facility] [place] [facility] [address] [id number] [place] [address]- 7888 Aug, [facility] [place] [facility] [address] [id number] [place] [address]- 3661 Aug, [facility] [place] [facility] [address] [id number] [place] [address]- 1149 Aug, [facility] [place] [facility] [address] [id number] [place] [address]- 3356 Aug, [facility] [place] [facility] [address] [id number], [place] [address]- 7881 Aug, [facility] [place] [facility] [address] [id number], [place] [address]- 5530 Aug, [facility] [place] [facility] [address] [id number] [place] [address]- 3887 Aug, [facility] [place] [facility] [address] [id number] [place] [address]- 8019 Aug, [facility] [place] [facility] [address] [id number] [place] [address]- 4071 Aug, [facility] [place] [facility] [address] [id number] [place] [address]- 2546 Aug, [facility] [place] [facility] [address] [id number] [place] [address]- 9738 Jul, [facility] [place] [facility] [address] [id number] [place] [address] 2546 Jul, [facility] [place] [facility] [address] [id number] [place] [address]- 9235 May, [facility] [place] [facility] [address] [id number] [place] [address]- 1828 May, [facility] [place] [facility] [address] [id number] [place] [address]- 0696 May, [facility] [place] [facility] [address] [id number] [place] [address]- 2920 May, [facility] [place] [facility] [address] [id number] [place] [address]- 9915 May, [facility] [place] [facility] [address] [id number] [place] [address]- 6686 May, [facility] [place] [facility] [address] [id number] [place] [address]- 4760 Apr, [facility] [place] [facility] [address] [id number] [place] [address]- 9738 Apr, [facility] [place] [facility] [address] [id number] [place] [address]- 5888 Apr, [facility] [place] [facility] [address] [id number] [place] [address]- 9424 Apr, [facility] [place] [facility] [address] [id number] [place] [address]- 5856 March, [facility] [place] [facility] [address] [id number] [place] [address]- 7646 March, [facility] [place] [facility] [address] [id number] [place] [address]- 5788 Feb, [facility] [place] [facility] [address] [id number] [place] [address]- 9122 Feb, [facility] [place] [facility] [address] [id number] [place] [address]- 1066 Jan, [facility] [place] [facility] [address] [id number] [place] [address]- 0995 Jan, [facility] [place] [facility] [address] [id number] [place] [address]- 2305 Nov, [facility] [place] [facility] [address] [id number] [place] 6446 Nov, [facility] [place] [facility] [address] [id number] [place] 2340 Nov, [facility] [place] [facility] [address] [id number] [place] [address]- 7311 Nov, [facility] [place] [facility] [address] [id number], [place] [address]- 9125 Nov, [facility] [place] [facility] [address] [id number] [place] [address]- 2510 Nov, [facility] [place] [facility] [address] [facility] [id number], [place] [address]- 1529 Oct, [facility] [place] [facility] [address] [id number], [place] [address]- 7666 Oct, [facility] [place] [facility] [address] [id number], [place] [address]- 5666 Aug, [facility] [place] [facility] [address] [id number], [place] [address]- 2296 Aug, [facility] [place] [facility] [address] [id number], [place] [address]- 8606 Jul, [facility] [place] [facility] [address] [id number], [place] [address]- 7556 Jun, [facility] [place] [facility] [address] [id number], [place] [address]- 1996 Jun, [facility] [place] [id number], [place] [address]- 8576 Jun, [facility] [place] [address] [id number], [place] [address]- 8716 Jun, [facility] [place] [id number], [place] [address]- 3746 Jun, [facility] [place] [id number], [place] [address]- 6156 Jun, [facility] [place] [id number], [place] [address]- 9105 May, [facility] [place] [id number] [address] March, [facility] [place] [id number] [address] March, [facility] [place] [address] [id number], [place] [address] Jan, IMMUNIZATIONS No Known Immunizations SOCIAL HISTORY Never Assessed [facility]AN OF CARE VITAL SIGNS MEDICATIONS Medication [...]
--- OUTSIDE RECORDS SUMMARY | 2018-05-04 20:23 | XMS REPORT ---
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 Name Role Phone Dami NILAM Unavailable PROBLEMS Type Condition ICD9-CM Code NLA43-PH Code Onset Dates Condition Status SNOMED Code Problem Coronary atherosclerosis due to lipid rich plaque I25.83 Active [id number] Problem Other chronic pain G89.29 Active 06487387 Problem Atherosclerotic heart disease of [place] coronary artery without angina pectoris I25.10 Active 755586742 Problem Acute right-sided low back pain with right-sided sciatica M54.41 Active 491259887 Problem Lumbar spondylosis M47.816 Active 510006593 Problem Parkinsons disease G20 Active 88358748 Problem Cervical stenosis of spine M48.02 Active 45305235 Problem 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 Active 634483576 Problem Hypercholesterolemia E78.0 Active 36670265 Problem Pure hypercholesterolemia E78.00 Active 446988180 Problem Depression F32.9 Active 68352134 Problem Pre-ulcerative calluses L84 Active 22947382 Problem Type 2 diabetes mellitus with other specified complication E11.69 Active 9289874 Problem Anxiety F41.9 Active 38174052 Problem HTN (hypertension) I10 Active 87263694 Problem Cervicalgia M54.2 Active [id number] ALLERGIES No Information ENCOUNTERS Encounter Location Date Diagnosis [facility] [id number] [address] Feb, [facility] [address], [place] [address] Jan, [facility] [address], [place] [address] Jan, [facility] [id number] [place] [address] 95478- 6309 Dec, Cervicalgia M54.2 [place] [id number] [place] [address] 96367- 7689 02 Dec, 2017 Controlled substance agreement signed Z79.899 [place] [id number] [place] [address] 18318- 7884 Oct, Cervicalgia M54.2 [place] [address] [address]24- 8011 Oct, Acute right-sided low back pain with right-sided sciatica M54.41 [place] [id number] [place] [address] 86997- 3480 Oct, [place] [address] [address]77- 7439 Sep, Cervicalgia M54.2 [place] [address] 0[address]26- 9710 14 Sep, 2017 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 [place] [id number] [place] [address] 47297- 4303 13 Sep, 2017 Lumbar back pain with radiculopathy affecting right lower extremity M54.17 [place] [id number] [place] [address] 60955- 2135 03 Sep, 2017 Acute right-sided low back pain with right-sided sciatica M54.41 [place] [id number] [place] [address] 89242- 7062 30 Aug, 2017 Type 2 diabetes mellitus with other specified complication E11.69 ; HTN (hypertension) I10 ; Cervicalgia M54.2 ; Cervical stenosis of spine M48.02 ; Acute right hip pain M25.551 ; Atherosclerotic heart disease of [place] coronary artery without angina pectoris I25.10 ; Hypercholesterolemia E78.0 ; Parkinsons disease G20 and Depression F32.9 [place] [id number] [place] [address] 70039- 2390 Aug, Other chronic pain G89.29 [facility] [address], [place] [address] 1714 Jul, Other chronic pain G89.29 [facility] [address], [place] [address] 4[address] 21 Jul, 2017 [facility] [address], [place] [address] 19 Jul, 2017 Cough R05 and Bronchitis J40 [facility] [id number] [address] 0740 30 Jun, 2017 Other chronic pain G89.29 [facility] [id number] [place] [address] 45580- 1608 Jun, [facility] [id number] [place] [address] 19408- 9175 Jun, Atherosclerotic heart disease of [place] coronary artery without angina pectoris I25.10 and Cervicalgia M54.2 [facility] [address], [place] [address] 5032 Jun, Cervicalgia M54.2 [facility] [id number] [place] [address] 18795- 8030 May, Other chronic pain G89.29 [facility] [address], [place] [address] 36[address] May, [facility] [address], [place] [address] 8098 May, [facility] [address], [place] [address] 9372 May, [facility] [id number] [place] [address] 52451- 1563 May, [facility] [address], [place] [address] 8113 May, Type 2 diabetes mellitus with other specified complication E11.69 ; HTN (hypertension) I10 ; Atherosclerotic heart disease of [place] coronary artery without angina pectoris I25.10 ; Parkinsons disease G20 and Cervical stenosis of spine M48.02 [place] [id number] [place] [address] 22670- 8522 Apr, Cervicalgia M54.2 [place] [id number] [place] [address] 02149- 1854 Apr, Type 2 diabetes mellitus with other specified complication E11.69 ; HTN (hypertension) I10 ; Depression F32.9 ; Atherosclerotic heart disease of [place] coronary artery without angina pectoris I25.10 ; Coronary atherosclerosis due to lipid rich plaque I25.83 ; Cervicalgia M54.2 ; Parkinsons disease G20 ; Chronic diarrhea K52.9 and Pure hypercholesterolemia E78.00 [place] [id number] [place] [address] 41309- 5721 March, Other chronic pain G89.29 [place] [address] 43865- 6240 March, Other chronic pain G89.29 [place] [id number] [place] [address] 35448- 8766 Feb, Cervical stenosis of spine M48.02 [place] [id number] [place] [address] 38241- 2115 Feb, Other chronic pain G89.29 [place] [id number] [place] [address] 91747- 1645 Jan, [place] [id number] [place] [address] 59195- 2544 Jan, Other chronic pain G89.29 [place] [id number] [place] [address] 84094- 0032 Jan, Other chronic pain G89.29 [place] [id number] [place] [address] 55623- 0615 Jan, Type 2 diabetes mellitus with other specified complication E11.69 ; Atherosclerotic heart disease of [place] coronary artery without angina pectoris I25.10 ; Anxiety F41.9 ; HTN (hypertension) I10 ; Depression F32.9 ; Coronary atherosclerosis due to lipid rich plaque I25.83 ; Cervicalgia M54.2 ; Other chronic pain G89.29 and Functional 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 [facility] [id number] [place] [address] 08497- 6922 Nov, HTN (hypertension) I10 [place] [address] 81461- 0017 03 Nov, 2016 Type 2 diabetes mellitus with other specified complication E11.69 ; Atherosclerotic heart disease of [place] coronary artery without angina pectoris I25.10 ; Hypercholesterolemia E78.0 ; Anxiety F41.9 ; Depression F32.9 ; Cervicalgia M54.2 and Functional 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 [place] [id number] [place] [address] 33781- 6864 Oct, [place] [address] 31284- 0807 Oct, Neck pain M54.2 [place] [id number] [place] [address] 18955- 2498 Sep, [place] [id number] [place] [address] 62801- 7944 Aug, [facility] [id number] [place] [address] 94623- 4722 Aug, [facility] [id number] [place] [address] 80994 -0551 Jul, Visit for TB skin test Z11.1 and Screening for tuberculosis Z11.1 [facility] [id number] [place] [address] 10688- 2298 May, [facility] [id number] [place] [address] 22718- 0392 May, Neck pain M54.2 [facility] [id number] [place] [address] 91303- 0975 May, [facility] [address], [place] [address]- 0028 Apr, Neck pain M54.2 [facility] [id number] [place] [address] 336677- 9134 Feb, Neck pain M54.2 [facility] [id number] [place] [address] 95728- 1858 Feb, [facility] [id number] [place] [address] 75689- 7727 Jan, Neck pain M54.2 [place] [id number] [place] [address] 52826- 2463 Jan, [facility] [id number] [place] [address] 23260- 2819 Jan, Neck pain M54.2 [place] [id number] [place] [address] 61280- 5357 08 Jan, 2016 Neck pain M54.2 ; Type 2 diabetes mellitus with other specified complication E11.69 ; CAD (coronary artery disease) 414.00 ; Insomnia 780.52 ; Anxiety F41.9 ; Depression F32.9 ; Pre-ulcerative calluses L84 and Hypercholesterolemia E78.0 [place] [id number] [place] [address] 06208- 0056 Nov, [place] [id number] [place] [address] 83762- 4328 Nov, Type 2 diabetes mellitus with other specified complication E11.69 ; Pre-ulcerative calluses L84 ; HTN (hypertension) I10 ; Hypercholesterolemia E78.0 ; Anxiety F41.9 ; Depression F32.9 ; Environmental allergies Z91.09 and Osteoarthritis M19.90 [place] [address], [place] [address]- 5930 Sep, [place] [id number] [place] [address] 03610- 5804 Aug, Allergic rhinitis, seasonal J30.2 [facility] [id number] [place] [address] 26590- 3392 Jul, [facility] [id number] [place] [address] 40156- 8849 Jul, Other specified cardiac dysrhythmias 427.89 ; Essential hypertension, benign 401.1 ; Nondependent tobacco use disorder 305.1 ; Unspecified hereditary and idiopathic peripheral neuropathy 356.9 ; Diabetes mellitus without mention of complication, type II or unspecified type, not stated as uncontrolled 250.00 ; CAD (coronary artery disease) 414.00 ; Insomnia 780.52 and Depression 311 [facility] [address] 87825- 8793 Jul, [facility] [id number] [place] [address] 00872- 3634 Jul, [facility] [address] 79199- 0248 May, [facility] [id number] [place] [address] 68387- 7269 May, [facility] [id number] [place] [address] 68259- 6039 May, [facility] [id number] [place] [address] 92055- 8974 Apr, [facility] [id number] [place] [address] 09162- 3256 Apr, Skin lesion of face 709.9 and Anxiety 300.00 [facility] [id number] [place] [address] 06557- 6525 March, [facility] [id number] [place] [address] 24785- 6720 Feb, [facility] [id number] [place] [address] 30118- 9275 Feb, [facility] [id number] [place] [address] 96224- 0510 Jan, [facility] [place] [facility] [address] [id number] [place] [address]- 6330 Jan, [facility] [place] [facility] [address] [id number] [place] [address]- 7607 Jan, [facility] [place] [facility] [address] [id number] [place] [address]- 3094 Jan, [facility] [place] [facility] [address] [id number] [place] [address]- 6113 Jan, [facility] [place] [facility] [address] [id number] [place] [address]- 6419 Jan, [facility] [place] [facility] [address] [id number] [place] [address]- 1800 Dec, [facility] [place] [facility] [address] [id number] [place] [address]- 0208 Dec, [facility] [place] [facility] [address] [facility] [id number] [place] [address]- 2366 Nov, [facility] [place] [facility] [address] [id number] [place] [address]- 5263 Nov, [facility] [place] [facility] [address] [facility] [id number] [place] [address]- 6380 Oct, [facility] [place] [facility] [address] [id number] [place] [address]- 2660 Oct, [facility] [place] [facility] [address] [id number] [place] [address]- 3006 Oct, [facility] [place] [facility] [address] [id number] [place] [address]- 9345 Oct, [facility] [place] [facility] [address] [id number] [place] [address]- 2608 Sep, [facility] [place] [facility] [address] [facility] [id number] [place] [address]- 6354 Sep, [facility] [place] [facility] [address] [id number] [place] [address]- 6957 Sep, [facility] [place] [facility] [address] [id number] [place] [address]- 6116 Sep, [facility] [place] [facility] [address] [id number] [place] [address]- 9512 Sep, [facility] [place] [facility] [address] [id number] [place] [address]- 0523 Sep, [facility] [place] [facility] [address] [id number] [place] [address]- 1491 Aug, [facility] [place] [facility] [address] [id number] [place] [address]- 4026 Aug, [facility] [place] [facility] [address] [id number] [place] [address]- 5113 Aug, [facility] [place] [facility] [address] [id number] [place] [address]- 5033 Aug, [facility] [place] [facility] [address] [id number] [place] [address]- 2280 Aug, [facility] [place] [facility] [address] [id number] [place] [address]- 3941 Aug, [facility] [place] [facility] [address] [id number] [place] [address]- 0456 Aug, [facility] [place] [facility] [address] [id number] [place] [address]- 9025 Aug, [facility] [place] [facility] [address] [id number] [place] [address]- 0737 Aug, [facility] [place] [facility] [address] [id number] [place] [address]- 4267 Aug, [facility] [place] [facility] [address] [id number] [place] 7708 05 Jul, 2014 [facility] [place] [facility] [address] [id number] [place] [address]- 9206 Jul, [facility] [place] [facility] [address] [id number] [place] [address]- 2419 May, [facility] [place] [facility] [address] [id number] [place] [address]- 0308 May, [facility] [place] [facility] [address] [id number] [place] [address]- 1225 May, [facility] [place] [facility] [address] [id number] [place] [address]- 1692 May, [facility] [place] [facility] [address] [id number] [place] [address]- 7533 May, [facility] [place] [facility] [address] [id number] [place] [address]- 2813 May, [facility] [place] [facility] [address] [id number] [place] [address]- 0405 Apr, [facility] [place] [facility] [address] [id number] [place] [address]- 6881 Apr, [facility] [place] [facility] [address] [id number] [place] [address]- 5693 Apr, [facility] [place] [facility] [address] [id number] [place] [address]- 2738 Apr, [facility] [place] [facility] [address] [id number], [place] [address]- 0017 March, [facility] [place] [facility] [address] [id number], [place] [address]- 8226 March, [facility] [place] [facility] [address] [id number] [place] [address]- 3937 Feb, [facility] [place] [facility] [address] [id number] [place] [address]- 0790 Feb, [facility] [place] [facility] [address] [id number] [place] [address]- 0182 Jan, [facility] [place] [facility] [address] [id number] [place] [address]- 3086 Jan, [facility] [address] [id number] [place] [address]- 4739 Nov, [facility] [place] [facility] [address] [id number] [place] [address]- 3557 Nov, [facility] [place] [facility] [address] [id number] [place] [address]- 9172 Nov, [facility] [place] [facility] [address] [id number] [place] [address]- 8502 Nov, [facility] [place] [facility] [address] [id number] [place] [address]- 2886 Nov, [facility] [place] [facility] [address] [id number] [place] [address]- 0467 Nov, [facility] [place] [facility] [address] [id number] [place] [address]- 7372 Oct, [facility] [place] [facility] [address] [id number] [place] [address]- 2907 Oct, [facility] [place] [facility] [address] [id number] [place] [address]- 3495 Aug, [facility] [place] [facility] [address] [id number] [place] [address]- 4443 Aug, [facility] [place] [facility] [address] [id number] [place] [address]- 3821 Jul, [facility] [place] [facility] [address] [id number] [place] [address]- 5201 Jun, [facility] [place] [facility] [address] [id number] [place] [address]- 2889 Jun, [facility] [place] [facility] [address] [id number] [place] [address]- 7414 Jun, [facility] [place] [facility] [address] [id number] [place] [address]- 4628 Jun, [facility] [address] [facility] [id number], [place] [address]- 0956 Jun, [facility] [id number], [place] [address]- 2546 Jun, [facility] [id number] [address]- 6386 May, [facility] [id number], [place] [address]- 2546 March, [facility] [id number], [place] [address]- 7383 March, [facility] [id number] [address]- 9707 Jan, IMMUNIZATIONS No Known Immunizations SOCIAL HISTORY Never Assessed REASON FOR VISIT pill box PLAN OF CARE VITAL SIGNS MEDICATIONS Unknown [...]
--- OUTSIDE RECORDS SUMMARY | 2018-05-04 20:24 | XMS REPORT | Continuity of Care Document ---
Author Author [facility] Address Unknown Phone Unavailable Allergies Active Description Code Type Severity Reaction Onset Reported/Identified Relationship to Patient Clinical Status Yes NO KNOWN DRUG ALLERGIES UNKNOWN NO KNOWN DRUG ALLERG Yes NKANo Known Allergies NKA Miscellaneous Allergy Unknown N/A 07/12/2017 Medications Medication Packaging Start Date Stop Date Route Dosage Sig NORMAL SALINE 1000CC IV BAG INJ 0.9 % (NS 1000CC IV BAG) ml 06/30/2017 07/01/2017 CONTINUOUSEVERY 0 Hour CEFAZOLIN VIAL INJ 1 GM (ANCEF) GM 06/30/2017 06/30/2017 ONCE&0800 Problems Date Dx Coded Attending Type Code Diagnosis Diagnosed By 10/20/1000 ANGEL STYLES MD Ot M54.2 CERVICALGIA 10/20/1455 NILAM MCDONALD Ot M54.2 CERVICALGIA 01/30/2013 187.9 MALIGNANT NEOPLASM OF MALE GENITAL ORGAN SITE UNSPECIFIED 01/30/2013 250.00 DIABETES MELLITUS WITHOUT MENTION OF COMPLICATION TYPE II OR UNSPECIFIED TYPE NOT STATED UNCONTROLLED 01/30/2013 305.1 NONDEPENDENT TOBACCO USE DISORDER 01/30/2013 401.1 BENIGN ESSENTIAL HYPERTENSION 01/30/2013 187.9 MALIGNANT NEOPLASM OF MALE GENITAL ORGAN SITE UNSPECIFIED 01/30/2013 250.00 DIABETES MELLITUS WITHOUT MENTION OF COMPLICATION TYPE II OR UNSPECIFIED TYPE NOT STATED UNCONTROLLED 01/30/2013 305.1 NONDEPENDENT TOBACCO USE DISORDER 01/30/2013 401.1 BENIGN ESSENTIAL HYPERTENSION 01/30/2013 187.9 MALIGNANT NEOPLASM OF MALE GENITAL ORGAN SITE UNSPECIFIED 01/30/2013 250.00 DIABETES MELLITUS WITHOUT MENTION OF COMPLICATION TYPE II OR UNSPECIFIED TYPE NOT STATED UNCONTROLLED 01/30/2013 305.1 NONDEPENDENT TOBACCO USE DISORDER 01/30/2013 401.1 BENIGN ESSENTIAL HYPERTENSION 01/30/2013 187.9 MALIGNANT NEOPLASM OF MALE GENITAL ORGAN SITE UNSPECIFIED 01/30/2013 250.00 DIABETES MELLITUS WITHOUT MENTION OF COMPLICATION TYPE II OR UNSPECIFIED TYPE NOT STATED UNCONTROLLED 01/30/2013 305.1 NONDEPENDENT TOBACCO USE DISORDER 01/30/2013 401.1 BENIGN ESSENTIAL HYPERTENSION 01/30/2013 OMER TEAGUE APRNCY N 187.9 MALIGNANT NEOPLASM OF MALE GENITAL ORGAN SITE UNSPECIFIED 01/30/2013 OMER TEAGUE APRNCY N 250.00 DIABETES MELLITUS WITHOUT MENTION OF COMPLICATION TYPE II OR UNSPECIFIED TYPE NOT STATED UNCONTROLLED 01/30/2013 ROSY ETIENNE APRJerson MARS N 305.1 NONDEPENDENT TOBACCO USE DISORDER 01/30/2013 ROSY ETIENNE APRNOMERCY N 401.1 BENIGN ESSENTIAL HYPERTENSION 01/30/2013 ROSY ETIENNE APRNOMERCY N 187.9 MALIGNANT NEOPLASM OF MALE GENITAL ORGAN SITE UNSPECIFIED 01/30/2013 ROSY ETIENNE APRNOMERCY N 250.00 DIABETES MELLITUS WITHOUT MENTION OF COMPLICATION TYPE II OR UNSPECIFIED TYPE NOT STATED UNCONTROLLED 01/30/2013 ROSY ETIENNE APRJerson MARS N 305.1 NONDEPENDENT TOBACCO USE DISORDER 01/30/2013 ROSY ETIENNE APRJerson MARS N 401.1 BENIGN ESSENTIAL HYPERTENSION 01/30/2013 SAHNI DO, RODOLFO K 187.9 MALIGNANT NEOPLASM OF MALE GENITAL ORGAN SITE UNSPECIFIED 01/30/2013 SAHNI DO, RODOLFO K 250.00 DIABETES MELLITUS WITHOUT MENTION OF COMPLICATION TYPE II OR UNSPECIFIED TYPE NOT STATED UNCONTROLLED 01/30/2013 SAHNI DO, RODOLFO K 305.1 NONDEPENDENT TOBACCO USE DISORDER 01/30/2013 SAHNI DO, RODOLFO K 401.1 BENIGN ESSENTIAL HYPERTENSION 01/30/2013 SAHNI DO, RODOLFO K 187.9 MALIGNANT NEOPLASM OF MALE GENITAL ORGAN SITE UNSPECIFIED 01/30/2013 SAHNI DO, RODOLFO K 250.00 DIABETES MELLITUS WITHOUT MENTION OF COMPLICATION TYPE II OR UNSPECIFIED TYPE NOT STATED UNCONTROLLED 01/30/2013 SAHNI DO, RODOLFO K 305.1 NONDEPENDENT TOBACCO USE DISORDER 01/30/2013 SAHNI DO, RODOLFO K 401.1 BENIGN ESSENTIAL HYPERTENSION 01/30/2013 ROSY ETIENNE APRJerson MARS N 187.9 MALIGNANT NEOPLASM OF MALE GENITAL ORGAN SITE UNSPECIFIED 01/30/2013 ROSY ETIENNE APRJerson MARS N 250.00 DIABETES MELLITUS WITHOUT MENTION OF COMPLICATION TYPE II OR UNSPECIFIED TYPE NOT STATED UNCONTROLLED 01/30/2013 ROSY ETIENNE APROMER ArthurCY N 305.1 NONDEPENDENT TOBACCO USE DISORDER 01/30/2013 MARS TEAGUE APRN N 401.1 BENIGN ESSENTIAL HYPERTENSION 01/30/2013 MARS TEAGUE APRN N 187.9 MALIGNANT NEOPLASM OF MALE GENITAL ORGAN SITE UNSPECIFIED 01/30/2013 MARS TEAGUE APRN N 250.00 DIABETES MELLITUS WITHOUT MENTION OF COMPLICATION TYPE II OR UNSPECIFIED TYPE NOT STATED UNCONTROLLED 01/30/2013 MARS TEAGUE APRN N 305.1 NONDEPENDENT TOBACCO USE DISORDER 01/30/2013 MARS TEAGUE APRN N 401.1 BENIGN ESSENTIAL HYPERTENSION 01/30/2013 MARS TEAGUE APRN N 187.9 MALIGNANT NEOPLASM OF MALE GENITAL ORGAN SITE UNSPECIFIED 01/30/2013 MARS TEAGUE APRN N 250.00 DIABETES MELLITUS WITHOUT MENTION OF COMPLICATION TYPE II OR UNSPECIFIED TYPE NOT STATED UNCONTROLLED 01/30/2013 MARS TEAGUE APRN N 305.1 NONDEPENDENT TOBACCO USE DISORDER 01/30/2013 MARS TEAGUE APRN N 401.1 BENIGN ESSENTIAL HYPERTENSION 01/30/2013 MARS TEAGUE APRN N 187.9 MALIGNANT NEOPLASM OF MALE GENITAL ORGAN SITE UNSPECIFIED 01/30/2013 MARS TEAGUE APRN N 250.00 DIABETES MELLITUS WITHOUT MENTION OF COMPLICATION TYPE II OR UNSPECIFIED TYPE NOT STATED UNCONTROLLED 01/30/2013 MARS TEAGUE APRN N 305.1 NONDEPENDENT TOBACCO USE DISORDER 01/30/2013 MARS TEAGUE APRN N 401.1 BENIGN ESSENTIAL HYPERTENSION 01/30/2013 VANIA DPM, SUZY 187.9 MALIGNANT NEOPLASM OF MALE GENITAL ORGAN SITE UNSPECIFIED 01/30/2013 VANIA DPM, SUZY 250.00 DIABETES MELLITUS WITHOUT MENTION OF COMPLICATION TYPE II OR UNSPECIFIED TYPE NOT STATED UNCONTROLLED 01/30/2013 VANIA DPM, SUZY 305.1 NONDEPENDENT TOBACCO USE DISORDER 01/30/2013 VANIA DPM, SUZY 401.1 BENIGN ESSENTIAL HYPERTENSION 01/30/2013 VANIA DPM, SUZY 187.9 MALIGNANT NEOPLASM OF MALE GENITAL ORGAN SITE UNSPECIFIED 01/30/2013 VANIA DPM, SUZY 250.00 DIABETES MELLITUS WITHOUT MENTION OF COMPLICATION TYPE II OR UNSPECIFIED TYPE NOT STATED UNCONTROLLED 01/30/2013 VANIA DPM, SUZY 305.1 NONDEPENDENT TOBACCO USE DISORDER 01/30/2013 VANIA DPM, SUZY 401.1 BENIGN ESSENTIAL HYPERTENSION 06/21/2013 787.91 DIARRHEA 06/21/2013 787.91 DIARRHEA 06/21/2013 GALLEGOS CASHERO BALLISTICS PROFESSOR, MARS N 787.91 DIARRHEA 06/21/2013 GALLEGOS CASHERO BALLISTICS PROFESSOR, MARS N 787.91 DIARRHEA 06/21/2013 SAHNI DO, RODOLFO K 787.91 DIARRHEA 06/21/2013 SAHNI DO, RODOLFO K 787.91 DIARRHEA 06/21/2013 GALLEGOS CASHERO BALLISTICS PROFESSOR, MARS N 787.91 DIARRHEA 06/21/2013 GALLEGOS CASHERO BALLISTICS PROFESSOR, MARS N 787.91 DIARRHEA 06/21/2013 GALLEGOS CASHERO BALLISTICS PROFESSOR, MARS N 787.91 DIARRHEA 06/21/2013 GALLEGOS CASHERO BALLISTICS PROFESSOR, MARS N 787.91 DIARRHEA 06/21/2013 VANIA DPM, SUZY 787.91 DIARRHEA 06/21/2013 VANIA DPM, SUZY 787.91 DIARRHEA 07/10/2013 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 07/10/2013 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 07/10/2013 GALLEGOS CASHERO BALLISTICS PROFESSOR, MARS N 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 07/10/2013 GALLEGOS CASHERO BALLISTICS PROFESSOR, MARS N 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 07/10/2013 SAHNI DO, RODOLFO K 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 07/10/2013 SAHNI DO, RODOLFO K 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 07/10/2013 GALLEGOS CASHERO BALLISTICS PROFESSOR, MARS N 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 07/10/2013 GALLEGOS CASHERO BALLISTICS PROFESSOR, MARS N 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 07/10/2013 GALLEGOS CASHERO BALLISTICS PROFESSOR, MARS N 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 07/10/2013 GALLEGOS CASHERO BALLISTICS PROFESSOR, MARS N 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 07/10/2013 VANIA DPM, SUZY 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 07/10/2013 VANIA DPM, SUZY 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 07/17/2013 719.47 PAIN IN JOINT INVOLVING ANKLE AND FOOT 07/17/2013 V58.69 LONG-TERM ( CURRENT) USE OF OTHER MEDICATIONS 07/17/2013 V67.9 UNSPECIFIED FOLLOW-UP EXAMINATION 07/17/2013 GALLEGOS CASHERO BALLISTICS PROFESSOR, MARS N 719.47 PAIN IN JOINT INVOLVING ANKLE AND FOOT 07/17/2013 GALLEGOS CASHERO BALLISTICS PROFESSOR, MARS N V58.69 LONG-TERM (CURRENT) USE OF OTHER MEDICATIONS 07/17/2013 GALLEGOS CASHERO BALLISTICS PROFESSOR, MARS N V67.9 UNSPECIFIED FOLLOW-UP EXAMINATION 07/17/2013 GALLEGOS CASHERO BALLISTICS PROFESSOR, MARS N 719.47 PAIN IN JOINT INVOLVING ANKLE AND FOOT 07/17/2013 GALLEGOS CASHBEN JOSHI, MARS N V58.69 LONG-TERM (CURRENT) USE OF OTHER MEDICATIONS 07/17/2013 GALLEGOS CASHERO BALLISTICS PROFESSOR, MARS N V67.9 UNSPECIFIED FOLLOW-UP EXAMINATION 07/17/2013 SAHNI DO RODOLFO K 719.47 PAIN IN JOINT INVOLVING ANKLE AND FOOT 07/17/2013 KAITLYN CORONA RODOLFO K V58.69 LONG-TERM (CURRENT) USE OF OTHER MEDICATIONS 07/17/2013 SAHNI DO RODOLFO K V67.9 UNSPECIFIED FOLLOW-UP EXAMINATION 07/17/2013 SAHNI DO RODOLFO K 719.47 PAIN IN JOINT INVOLVING ANKLE AND FOOT 07/17/2013 SAHNI DO RODOLFO K V58.69 LONG-TERM (CURRENT) USE OF OTHER MEDICATIONS 07/17/2013 SAHNI DO RODOLFO K V67.9 UNSPECIFIED FOLLOW-UP EXAMINATION 07/17/2013 GALLEGOS CASHERO BALLISTICS PROFESSOR, MARS N 719.47 PAIN IN JOINT INVOLVING ANKLE AND FOOT 07/17/2013 GALLEGOS CASHERO BALLISTICS PROFESSOR, MARS N V58.69 LONG-TERM (CURRENT) USE OF OTHER MEDICATIONS 07/17/2013 GALLEGOS CASHERO BALLISTICS PROFESSOR, MARS N V67.9 UNSPECIFIED FOLLOW-UP EXAMINATION 07/17/2013 GALLEGOS CASHERO BALLISTICS PROFESSOR, MARS N 719.47 PAIN IN JOINT INVOLVING ANKLE AND FOOT 07/17/2013 ROSY ETIENNE APRN, MARS N V58.69 LONG-TERM (CURRENT) USE OF OTHER MEDICATIONS 07/17/2013 ROSY ETIENNE APRN, MARS N V67.9 UNSPECIFIED FOLLOW-UP EXAMINATION 07/17/2013 ROSY ETIENNE BALLISTICS PROFESSOR, MARS N 719.47 PAIN IN JOINT INVOLVING ANKLE AND FOOT 07/17/2013 ROSY ETIENNE APRN, MARS N V58.69 LONG-TERM (CURRENT) USE OF OTHER MEDICATIONS 07/17/2013 ROSY ESTRADAERO BALLISTICS PROFESSOR, MARS N V67.9 UNSPECIFIED FOLLOW-UP EXAMINATION 07/17/2013 ROSY ETIENNE APRN, MRAS N 719.47 PAIN IN JOINT INVOLVING ANKLE AND FOOT 07/17/2013 ROSY ETIENNE APRN, MARS N V58.69 LONG-TERM (CURRENT) USE OF OTHER MEDICATIONS 07/17/2013 ROSY ETIENNE APRN, MARS N V67.9 UNSPECIFIED FOLLOW-UP EXAMINATION 07/17/2013 VANIA DPM, SUZY 719.47 PAIN IN JOINT INVOLVING ANKLE AND FOOT 07/17/2013 VANIA DPM, SUZY V58.69 LONG-TERM (CURRENT) USE OF OTHER MEDICATIONS 07/17/2013 VANIA DPM, SUZY V67.9 UNSPECIFIED FOLLOW-UP EXAMINATION 07/17/2013 VANIA DPM, SUZY 719.47 PAIN IN JOINT INVOLVING ANKLE AND FOOT 07/17/2013 VANIA DPM, SUZY V58.69 LONG-TERM (CURRENT) USE OF OTHER MEDICATIONS 07/17/2013 VANIA DPM, SUZY V67.9 UNSPECIFIED FOLLOW-UP EXAMINATION 09/06/2013 GALLEGOS CASHERO BALLISTICS PROFESSOR, MARS N 700 CORNS AND CALLOSITIES 09/06/2013 GALLEGOS CASHERO BALLISTICS PROFESSOR, MARS N 700 CORNS AND CALLOSITIES 09/06/2013 SAHNI DO, RODOLFO K 700 CORNS AND CALLOSITIES 09/06/2013 SAHNI DO, RODOLFO K 700 CORNS AND CALLOSITIES 09/06/2013 GALLEGOS CASHERO BALLISTICS PROFESSOR, MARS N 700 CORNS AND CALLOSITIES 09/06/2013 GALLEGOS CASHERO BALLISTICS PROFESSOR, MARS N 700 CORNS AND CALLOSITIES 09/06/2013 GALLEGOS CASHERO BALLISTICS PROFESSOR, MARS N 700 CORNS AND CALLOSITIES 09/06/2013 GALLEGOS CASHERO BALLISTICS PROFESSOR, MARS N 700 CORNS AND CALLOSITIES 09/06/2013 VANIA DPM, SUZY 700 CORNS AND CALLOSITIES 09/06/2013 VANIA DPM, SUZY 700 CORNS AND CALLOSITIES 04/10/2014 SAHNI DO, RODOLFO K 401.9 HYPERTENSION, UNSPECIFIED ESSENTIAL 04/10/2014 SAHNI DO, RODOLFO K 427.89 BRADYCARDIA 04/10/2014 SAHNI DO, RODOLFO K 786.09 DYSPNEA 04/10/2014 SAHNI DO, RODOLFO K 401.9 HYPERTENSION, UNSPECIFIED ESSENTIAL 04/10/2014 SAHNI DO, RODOLFO K 427.89 BRADYCARDIA 04/10/2014 SAHNI DO, RODOLFO K 786.09 DYSPNEA 04/10/2014 GALLEGOS CASHERO BALLISTICS PROFESSOR, MARS N 401.9 HYPERTENSION, UNSPECIFIED ESSENTIAL 04/10/2014 GALLEGOS CASHERO BALLISTICS PROFESSOR, MARS N 427.89 BRADYCARDIA 04/10/2014 GALLEGOS CASHERO BALLISTICS PROFESSOR, MARS N 786.09 DYSPNEA 04/10/2014 GALLEGOS CASHERO BALLISTICS PROFESSOR, MARS N 401.9 HYPERTENSION, UNSPECIFIED ESSENTIAL 04/10/2014 GALLEGOS CASHERO BALLISTICS PROFESSOR, MARS N 427.89 BRADYCARDIA 04/10/2014 GALLEGOS CASHERO BALLISTICS PROFESSOR, MARS N 786.09 DYSPNEA 04/10/2014 GALLEGOS CASHERO BALLISTICS PROFESSOR, MARS N 401.9 HYPERTENSION, UNSPECIFIED ESSENTIAL 04/10/2014 GALLEGOS CASHERO BALLISTICS PROFESSOR, MARS N 427.89 BRADYCARDIA 04/10/2014 GALLEGOS CASHERO BALLISTICS PROFESSOR, MARS N 786.09 DYSPNEA 04/10/2014 GALLEGOS CASHERO BALLISTICS PROFESSOR, MARS N 401.9 HYPERTENSION, UNSPECIFIED ESSENTIAL 04/10/2014 GALLEGOS CASHERO BALLISTICS PROFESSOR, MARS N 427.89 BRADYCARDIA 04/10/2014 GALLEGOS CASHERO BALLISTICS PROFESSOR, MARS N 786.09 DYSPNEA 04/10/2014 VANIA DPM, SUZY 401.9 HYPERTENSION, UNSPECIFIED ESSENTIAL 04/10/2014 VANIA DPM, SUZY 427.89 BRADYCARDIA 04/10/2014 VANIA DPM, SUZY 786.09 DYSPNEA 04/10/2014 VANIA DPM, SUZY 401.9 HYPERTENSION, UNSPECIFIED ESSENTIAL 04/10/2014 VANIA DPM, SUZY 427.89 BRADYCARDIA 04/10/2014 VANIA DPM, SUZY 786.09 DYSPNEA 10/15/2014 ROSY ETIENNE BALLISTICS PROFESSOR, MARS N 302.9 UNSPECIFIED PSYCHOSEXUAL DISORDER 10/15/2014 ROSY ETIENNE BALLISTICS PROFESSOR, MARS N 302.9 UNSPECIFIED PSYCHOSEXUAL DISORDER 10/15/2014 VANIA DPM, SUZY 302.9 UNSPECIFIED PSYCHOSEXUAL DISORDER 10/15/2014 VANIA DPM, SUZY 302.9 UNSPECIFIED PSYCHOSEXUAL DISORDER 10/16/2014 ROXANA CORTEZ FAC, ALI FACP CCDS Ot 401.9 10/16/2014 ROXANA CORTEZ FAC, ALI FACP CCDS Ot 427.89 10/16/2014 ROXANA CORTEZ FAC, ALI FACP CCDS Ot 786.09 10/16/2014 ROXANA CORTEZ FAC, ALI FACP CCDS Ot 427.89 10/16/2014 ROXANA CORTEZ FAC, ALI FACP CCDS Ot 786.09 11/06/2014 TONIA CABA MD Ot 455.0 INT HEMORRHOID W/O COMPL 11/06/2014 TONIA CABA MD Ot 455.3 EXT HEMORRHOID W/O COMPL 11/06/2014 TONIA CABA MD Ot 787.91 DIARRHEA 11/08/2014 VANIA DPM, SUZY 110.1 ONYCHOMYCOSIS 11/08/2014 VANIA DPM, SUZY 356.9 NEUROPATHY 11/08/2014 VANIA DPM, SUZY 110.1 ONYCHOMYCOSIS 11/08/2014 VANIA DPM, SUZY 356.9 NEUROPATHY 11/11/2014 TONIA CABA MD Ot V72.84 11/20/2014 MARS RAMIREZ FINANCIAL SERVICES INTERN Ot 239.5 11/20/2014 MARS RAMIREZ FINANCIAL SERVICES INTERN Ot 401.9 11/20/2014 MARS RAMIREZ FINANCIAL SERVICES INTERN Ot 787.91 11/20/2014 MARS RAMIREZ FINANCIAL SERVICES INTERN Ot V58.69 11/25/2014 MARS RAMIREZ FINANCIAL SERVICES INTERN Ot 239.5 11/25/2014 MARS RAMIREZ FINANCIAL SERVICES INTERN Ot 401.9 11/25/2014 MARS RAMIREZ FINANCIAL SERVICES INTERN Ot 787.91 11/25/2014 MARS RAMIREZ FINANCIAL SERVICES INTERN Ot V58.69 01/15/2015 ROXANA CORTEZ FACC, ALI FACP CCDS Ot 427.89 01/15/2015 ROXANA CORTEZ FACC, ALI FACP CCDS Ot 786.09 01/21/2015 VANIA DPM, SUZY 781.0 ABNORMAL INVOLUNTARY MOVEMENTS 02/07/2015 VANIA DPM, SUZY 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 02/11/2016 ROXANA CORTEZ FACC, NATHAN FACP CCDS Ot 401.9 02/11/2016 ROXANA CORTEZ FACC, ALI FACP CCDS Ot 427.89 02/11/2016 ROXANA CORTEZ FACC, ALI FACP CCDS Ot 786.09 02/11/2016 ROXANA CORTEZ FACC, ALI FACP CCDS Ot 427.89 02/11/2016 ROXANA CORTEZ FACC, NATHAN FACP CCDS Ot 786.09 02/11/2016 MARS RAMIREZ FINANCIAL SERVICES INTERN Ot 239.5 02/11/2016 MARS RAMIREZ FINANCIAL SERVICES INTERN Ot 401.9 02/11/2016 MARS RAMIREZ FINANCIAL SERVICES INTERN Ot 787.91 02/11/2016 MARS RAMIREZ FINANCIAL SERVICES INTERN Ot V58.69 02/11/2016 GERTRUDIS CORTEZ, TONIA Ot V72.84 02/12/2016 NILAM MCDONALD FINANCIAL SERVICES INTERN Ot M54.2 03/02/2016 NILAM MCDONALD FINANCIAL SERVICES INTERN Ot M54.2 03/09/2016 NILAM MCDONALD FINANCIAL SERVICES INTERN Ot M54.2 CERVICALGIA 06/17/2016 ROXANA CORTEZ FACC, NATHAN BRYSONP CCDS Ot 401.9 HYPERTENSION NOS 06/17/2016 ROXANA CORTEZ FACC, NATHAN FACP CCDS Ot 427.89 CARDIAC DYSRHYTHMIAS NEC 06/17/2016 ROXANA CORTEZ FACC, NATHAN BRYSONP CCDS Ot 786.09 RESPIRATORY ABNORM NEC 06/17/2016 ROXANA CORTEZ FACC, ALI FACP CCDS Ot 427.89 CARDIAC DYSRHYTHMIAS NEC 06/17/2016 ROXANA CORTEZ FACC, NATHAN FACP CCDS Ot 786.09 RESPIRATORY ABNORM NEC 06/17/2016 MARS RAMIREZ FINANCIAL SERVICES INTERN Ot 239.5 OTHER NEOPLASM NOS 06/17/2016 MARS RAMIREZ Jerson FINANCIAL SERVICES INTERN Ot 401.9 HYPERTENSION NOS 06/17/2016 OMER RAMIREZCY N FINANCIAL SERVICES INTERN Ot 787.91 DIARRHEA 06/17/2016 MARS RAMIREZ Jerson FINANCIAL SERVICES INTERN Ot V58.69 OTH MED,LT,CURRENT USE 06/17/2016 TONIA CABA MD Ot V72.84 EXAM PRE-OPERATIVE NOS 06/17/2016 NILAM MCDONALD FINANCIAL SERVICES INTERN Ot M54.2 CERVICALGIA 06/24/2016 NILAM MCDONALD FINANCIAL SERVICES INTERN Ot M54.2 CERVICALGIA 06/25/2016 NILAM MCDONALD A FINANCIAL SERVICES INTERN Ot M54.2 CERVICALGIA 06/25/2016 NILAM MCDONALD FINANCIAL SERVICES INTERN Ot M54.2 CERVICALGIA 07/02/2016 ROXANA CORTEZ FACC, ALI FACP CCDS Ot 401.9 HYPERTENSION NOS 07/02/2016 ROXANA CORTEZ FACC, ALI FACP CCDS Ot 427.89 CARDIAC DYSRHYTHMIAS NEC 07/02/2016 ROXANA CORTEZ FACC, ALI FACP CCDS Ot 786.09 RESPIRATORY ABNORM NEC 07/02/2016 ROXANA CORTEZ FACC, ALI FACP CCDS Ot 427.89 CARDIAC DYSRHYTHMIAS NEC 07/02/2016 ROXANA CORTEZ FACC, ALI FACP CCDS Ot 786.09 RESPIRATORY ABNORM NEC 07/02/2016 MARS RAMIREZ Jerson FINANCIAL SERVICES INTERN Ot 239.5 OTHER NEOPLASM NOS 07/02/2016 MARS RAMIREZ N FINANCIAL SERVICES INTERN Ot 401.9 HYPERTENSION NOS 07/02/2016 ASHLEY MARS N FINANCIAL SERVICES INTERN Ot 787.91 DIARRHEA 07/02/2016 ASHLEY MARS Jerson FINANCIAL SERVICES INTERN Ot V58.69 OTH MED,LT,CURRENT USE 07/02/2016 TONIA CABA MD Ot V72.84 EXAM PRE-OPERATIVE NOS 07/02/2016 NILAM MCDONALD FINANCIAL SERVICES INTERN Ot M54.2 CERVICALGIA 07/02/2016 NILAM MCDONALD FINANCIAL SERVICES INTERN Ot M54.2 CERVICALGIA 07/02/2016 MIKAELA LAM MD Ot F17.210 NICOTINE DEPENDENCE, CIGARETTES, UNCOMPL 07/02/2016 MIKAELA LAM MD Ot R45.851 SUICIDAL IDEATIONS 07/06/2016 MIKAELA LAM MD Ot F17.210 NICOTINE DEPENDENCE, CIGARETTES, UNCOMPL 07/06/2016 MIKAELA LAM MD Ot R45.851 SUICIDAL IDEATIONS 07/16/2016 NILAM MCDONALD FINANCIAL SERVICES INTERN Ot M54.2 CERVICALGIA 07/23/2016 ROXANA CORTEZ FACC, ALI FACP CCDS Ot 401.9 HYPERTENSION NOS 07/23/2016 ROXANA CORTEZ FACC, ALI FACP CCDS Ot 427.89 CARDIAC DYSRHYTHMIAS NEC 07/23/2016 ROXANA CORTEZ FACC, ALI FACP CCDS Ot 786.09 RESPIRATORY ABNORM NEC 07/23/2016 ROXANA CORTEZ FACC, ALI FACP CCDS Ot 427.89 CARDIAC DYSRHYTHMIAS NEC 07/23/2016 ROXANA CORTEZ FACRadhames, ALI FACP CCDS Ot 786.09 RESPIRATORY ABNORM NEC 07/23/2016 MARS RAMIREZ FINANCIAL SERVICES INTERN Ot 239.5 OTHER NEOPLASM NOS 07/23/2016 MARS RAMIREZ N FINANCIAL SERVICES INTERN Ot 401.9 HYPERTENSION NOS 07/23/2016 MARS RAMIREZ N FINANCIAL SERVICES INTERN Ot 787.91 DIARRHEA 07/23/2016 MARS RAMIREZ N FINANCIAL SERVICES INTERN Ot V58.69 OTH MED,LT,CURRENT USE 07/23/2016 GERTRUDIS CORTEZ, TONIA Ot V72.84 EXAM PRE-OPERATIVE NOS 07/23/2016 NILAM MCDONALD FINANCIAL SERVICES INTERN Ot M54.2 CERVICALGIA 07/23/2016 NILAM MCDONALD FINANCIAL SERVICES INTERN Ot M54.2 CERVICALGIA 07/23/2016 ANGEL STYLES MD Ot M50.13 CERVICAL DISC DISORDER W RADICULOPATHY, 07/23/2016 ANGEL STYLES MD Ot Z79.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 08/05/2016 ANGEL STYLES MD Ot M50.13 CERVICAL DISC DISORDER W RADICULOPATHY, 08/05/2016 ANGEL STYLES MD Ot Z79.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 08/07/2016 ANGEL STYLES MD Ot M50.13 CERVICAL DISC DISORDER W RADICULOPATHY, 08/07/2016 ANGEL STYLES MD Ot Z79.899 OTHER RESIDENTIAL (CURRENT) DRUG THERAPY 08/17/2016 NILAM MCDONALD FINANCIAL SERVICES INTERN Ot M54.2 CERVICALGIA 08/19/2016 NILAM MCDONALD FINANCIAL SERVICES INTERN Ot M54.2 CERVICALGIA 11/16/2016 ROXANA CORTEZ FACC, ALI FACP CCDS Ot 401.9 HYPERTENSION NOS 11/16/2016 ROXANA CORTEZ FACC, ALI FACP CCDS Ot 427.89 CARDIAC DYSRHYTHMIAS NEC 11/16/2016 ROXANA CORTEZ FACRadhames, ALI FACP CCDS Ot 786.09 RESPIRATORY ABNORM NEC 11/16/2016 ROXANA CORTEZ FACRadhames, ALI FACP CCDS Ot 427.89 CARDIAC DYSRHYTHMIAS NEC 11/16/2016 ROXANA CORTEZ FACC, ALI FACP CCDS Ot 786.09 RESPIRATORY ABNORM NEC 11/16/2016 MARS RAMIREZ N FINANCIAL SERVICES INTERN Ot 239.5 OTHER NEOPLASM NOS 11/16/2016 OMER RAMIREZCY N FINANCIAL SERVICES INTERN Ot 401.9 HYPERTENSION NOS 11/16/2016 MARS RAMIREZ N FINANCIAL SERVICES INTERN Ot 787.91 DIARRHEA 11/16/2016 MARS RAMIREZ N FINANCIAL SERVICES INTERN Ot V58.69 OT MED,LT,CURRENT USE 11/16/2016 GERTRUDIS CORTEZ, TONIA Ot V72.84 EXAM PRE-OPERATIVE NOS 11/16/2016 NILAM MCDONALD FINANCIAL SERVICES INTERN Ot M54.2 CERVICALGIA 12/10/2016 NILAM MCDONALD [employer]ANCIAL SERVICES INTERN Ot M54.2 CERVICALGIA 12/10/2016 JENSEN CORTEZ, ANGEL Thompson Ot M54.2 CERVICALGIA 12/10/2016 ROXANA CORTEZ FACC, ALI FACP CCDS Ot 401.9 HYPERTENSION NOS 12/10/2016 ROXANA CORTEZ FACC, ALI FACP CCDS Ot 427.89 CARDIAC DYSRHYTHMIAS NEC 12/10/2016 ROXANA CORTEZ FACC, ALI FACP CCDS Ot 786.09 RESPIRATORY ABNORM NEC 12/10/2016 ROXANA CORTEZ FACC, ALI FACP CCDS Ot 427.89 CARDIAC DYSRHYTHMIAS NEC 12/10/2016 ROXANA CORTEZ FACC, ALI FACP CCDS Ot 786.09 RESPIRATORY ABNORM NEC 12/10/2016 MARS RAMIREZ N FINANCIAL SERVICES INTERN Ot 239.5 OTHER NEOPLASM NOS 12/10/2016 MARS RAMIREZ N FINANCIAL SERVICES INTERN Ot 401.9 HYPERTENSION NOS 12/10/2016 MARS RAMIREZ [employer] SERVICES INTERN Ot 787.91 DIARRHEA 12/10/2016 MARS RAMIREZ [employer] SERVICES INTERN Ot V58.69 OTH MED,LT,CURRENT USE 12/10/2016 GERTRUDIS CORTEZ, TONIA Ot V72.84 EXAM PRE-OPERATIVE NOS 12/10/2016 NILAM MCDONALD Ot M54.2 CERVICALGIA 12/10/2016 ANGEL STYLES MD Ot M54.2 CERVICALGIA 12/10/2016 ANGEL STYLES MD Ot E11.9 TYPE 2 DIABETES MELLITUS WITHOUT COMPLIC 12/10/2016 ANGEL STYLES MD Ot M50.13 CERVICAL DISC DISORDER W RADICULOPATHY, 12/10/2016 ANGEL STYLES MD Ot Z79.899 OTHER RESIDENTIAL (CURRENT) DRUG THERAPY 12/16/2016 ANGEL STYLES MD Ot M54.2 CERVICALGIA 06/21/2017 NILAM MCDONALDP Ot M54.2 CERVICALGIA 06/21/2017 AISHWARYA LE DO Ot R19.7 DIARRHEA, UNSPECIFIED 06/21/2017 AISHWARYA LE DO Ot Z01.818 ENCOUNTER FOR OTHER PREPROCEDURAL EXAMIN 06/30/2017 GEORGINA KAUFMAN 354.0 CARPAL TUNNEL SYNDROME 06/30/2017 GEORGINA KAUFMAN 727.05 OTHER TENOSYNOVITIS OR HAND AND WRIST 06/30/2017 GEORGINA KAUFMAN G56.01 CARPAL TUNNEL SYNDROME, RIGHT UPPER LIMB 06/30/2017 GEORGINA KAUFMAN M65.9 SYNOVITIS AND TENOSYNOVITIS, UNSPECIFIED 07/07/2017 Rad Ramirez 338.18 OTHER ACUTE POSTOPERATIVE PAIN 07/07/2017 Rad Ramirez 719.43 PAIN IN JOINT INVOLVING FOREARM 07/07/2017 Rad Ramirez G89.18 OTHER ACUTE POSTPROCEDURAL PAIN 07/07/2017 Rad Ramirez M25.539 PAIN IN UNSPECIFIED WRIST 07/12/2017 AISHWARYA LE DO Ot R19.7 DIARRHEA, UNSPECIFIED 07/12/2017 AISHWARYA LE DO Ot Z01.818 ENCOUNTER FOR OTHER PREPROCEDURAL EXAMIN 07/12/2017 AISHWARYA LE DO Ot E11.9 TYPE 2 DIABETES MELLITUS WITHOUT COMPLIC 07/12/2017 AISHWARYA LE DO Ot F17.210 NICOTINE DEPENDENCE, CIGARETTES, UNCOMPL 07/12/2017 AISHWARYA LE DO Ot F32.9 MAJOR DEPRESSIVE DISORDER, SINGLE EPISOD 07/12/2017 AISHWARYA LE DO Ot I10 ESSENTIAL (PRIMARY) HYPERTENSION 07/12/2017 AISHWARYA LE DO Ot K52.9 NONINFECTIVE GASTROENTERITIS AND COLITIS 07/12/2017 AISHWARYA LE DO Ot 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.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 09/21/2017 ROXANA CORTEZ FAC, ALI FACP CCDS Ot 401.9 HYPERTENSION NOS 09/21/2017 ROXANA BRYSONC, ALI FACP CCDS Ot 427.89 CARDIAC DYSRHYTHMIAS NEC 09/21/2017 ROXANA BRYSONC, ALI FACP CCDS Ot 786.09 RESPIRATORY ABNORM NEC 09/21/2017 ROXANA CORTEZ FACC, ALI FACP CCDS Ot 427.89 CARDIAC DYSRHYTHMIAS NEC 09/21/2017 ROXANA CORTEZ FACC, ALI FACP CCDS Ot 786.09 RESPIRATORY ABNORM NEC 09/21/2017 MARS RAMIREZ [employer] SERVICES INTERN Ot 239.5 OTHER NEOPLASM NOS 09/21/2017 MARS RAMIREZ [employer] SERVICES INTERN Ot 401.9 HYPERTENSION NOS 09/21/2017 MARS RAMIREZ [employer] SERVICES INTERN Ot 787.91 DIARRHEA 09/21/2017 MARS RAMIREZ [employer] SERVICES INTERN Ot V58.69 OTH MED,LT,CURRENT USE 09/21/2017 GERTRUDIS CORTEZ, TONIA Ot V72.84 EXAM PRE-OPERATIVE NOS 09/21/2017 NILAM MCDONALD FINANCIAL SERVICES INTERN Ot M54.2 CERVICALGIA 09/21/2017 AISHWARYA LE DO Ot R19.7 DIARRHEA, UNSPECIFIED 09/21/2017 AISHWARYA LE DO Ot Z01.818 ENCOUNTER FOR OTHER PREPROCEDURAL EXAMIN 09/21/2017 AISHWARYA EL DO Ot R19.7 DIARRHEA, UNSPECIFIED 09/21/2017 AISHWARYA LE DO Ot Z01.818 ENCOUNTER FOR OTHER PREPROCEDURAL EXAMIN 09/21/2017 LCAUDINE CHRISTIANSON Ot E11.9 TYPE 2 DIABETES MELLITUS WITHOUT COMPLIC 09/21/2017 CLAUDINE CHRISTIANSON Ot F17.210 NICOTINE DEPENDENCE, CIGARETTES, UNCOMPL 09/21/2017 CLAUDINE CHRISTIANSON Ot F41.9 ANXIETY DISORDER, UNSPECIFIED 09/21/2017 CLAUDINE CHRISTIANSON Ot F43.10 POST-TRAUMATIC STRESS DISORDER, UNSPECIF 09/21/2017 CLAUDINE CHRISTIANSON Ot I10 ESSENTIAL (PRIMARY) HYPERTENSION 09/21/2017 CLAUDINE CHRISTIANSON Ot K58.9 IRRITABLE BOWEL SYNDROME WITHOUT DIARRHE 09/21/2017 CLAUDINE CHRISTIANSON Ot M25.551 PAIN IN RIGHT HIP 09/21/2017 CLAUDINE CHRISTIANSON Ot 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, RIGHT SIDE 09/21/2017 CLAUDINE CHRISTIANSON Ot 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.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 09/21/2017 CLAUDINE CHRISTIANSON Ot Z79.84 RESIDENTIAL (CURRENT) USE OF ORAL HYPOGLYC 09/21/2017 CLAUDINE CHRISTIANSON Ot Z90.49 ACQUIRED ABSENCE OF OTHER SPECIFIED PART 09/23/2017 CLAUDINE CHRISTIANSON Ot E11.9 TYPE 2 DIABETES MELLITUS WITHOUT COMPLIC 09/23/2017 CLAUDINE CHRISTIANSON Ot F17.210 NICOTINE DEPENDENCE, CIGARETTES, UNCOMPL 09/23/2017 CLAUDINE CHRISTIANSON Ot F41.9 ANXIETY DISORDER, UNSPECIFIED 09/23/2017 CLAUDINE CHRISTIANSON Ot F43.10 POST-TRAUMATIC STRESS DISORDER, UNSPECIF 09/23/2017 CLAUDINE CHRISTIANSON Ot I10 ESSENTIAL (PRIMARY) HYPERTENSION 09/23/2017 CLAUDINE CHRISTIANSON Ot K58.9 IRRITABLE BOWEL SYNDROME WITHOUT DIARRHE 09/23/2017 CLAUDINE CHRISTIANSON Ot M25.551 PAIN IN RIGHT HIP 09/23/2017 CLAUDINE CHRISTIANSON Ot 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, RIGHT SIDE 09/23/2017 CALUDINE CHRISTIANSON Ot Z79.82 RESIDENTIAL (CURRENT) USE OF ASPIRIN 09/23/2017 CLAUDINE CHRISTIANSON Ot Z79.84 THREADING MACHINE TENDER (CURRENT) USE OF ORAL HYPOGLYC 09/23/2017 CLAUDINE CHRISTIANSON Ot Z90.49 ACQUIRED ABSENCE OF OTHER SPECIFIED PART 10/05/2017 MCDONALDNILAM BLACK FINANCIAL SERVICES INTERN Ot M54.2 CERVICALGIA 10/05/2017 LE DO, AISHWARYA D Ot R19.7 DIARRHEA, UNSPECIFIED 10/05/2017 LE DO, AISHWARYA D Ot Z01.818 ENCOUNTER FOR OTHER PREPROCEDURAL EXAMIN 10/05/2017 LE DO, AISHWARYA D Ot R19.7 DIARRHEA, UNSPECIFIED 10/05/2017 LE DO, AISHWARYA D Ot Z01.818 ENCOUNTER FOR OTHER PREPROCEDURAL EXAMIN 10/05/2017 ROXANA CORTEZ FACC, ALI FACP CCDS Ot 401.9 HYPERTENSION NOS 10/05/2017 ROXANA CORTEZ FACC, ALI FACP CCDS Ot 427.89 CARDIAC DYSRHYTHMIAS NEC 10/05/2017 ROXANA CORTEZ FACC, ALI FACP CCDS Ot 786.09 RESPIRATORY ABNORM NEC 10/05/2017 ROXANA CORTEZ FACC, ALI FACP CCDS Ot 427.89 CARDIAC DYSRHYTHMIAS NEC 10/05/2017 ROXANA CORTEZ FACC, ALI FACP CCDS Ot 786.09 RESPIRATORY ABNORM NEC 10/05/2017 MARS RAMIREZ FINANCIAL SERVICES INTERN Ot 239.5 OTHER NEOPLASM NOS 10/05/2017 MARS RAMIREZ N FINANCIAL SERVICES INTERN Ot 401.9 HYPERTENSION NOS 10/05/2017 MARS RAMIREZ FINANCIAL SERVICES INTERN Ot 787.91 DIARRHEA 10/05/2017 MARS RAMIREZ FINANCIAL SERVICES INTERN Ot V58.69 OTH MED,LT,CURRENT USE 10/05/2017 GERTRUDIS CORTEZ, TONIA Ot V72.84 EXAM PRE-OPERATIVE NOS 10/05/2017 NILAM MCDONALD FINANCIAL SERVICES INTERN Ot M54.2 CERVICALGIA 10/05/2017 LE DO, AISHWARYA D Ot R19.7 DIARRHEA, UNSPECIFIED 10/05/2017 LE DO, AISHWARYA D Ot Z01.818 ENCOUNTER FOR OTHER PREPROCEDURAL EXAMIN 10/05/2017 LE DO, AISHWARYA D Ot R19.7 DIARRHEA, UNSPECIFIED 10/05/2017 LE DO, AISHWARYA D Ot Z01.818 ENCOUNTER FOR OTHER PREPROCEDURAL EXAMIN 10/12/2017 ARTEMIO RAMIREZ APRN Ot M47.27 OTHER SPONDYLOSIS WITH RADICULOPATHY, PERICO 10/31/2017 ARTEMIO RAMIREZ BALLISTICS PROFESSOR Ot M47.27 OTHER SPONDYLOSIS WITH RADICULOPATHY, PERICO 11/07/2017 ARTEMIO RAMIREZ BALLISTICS PROFESSOR Ot M47.27 OTHER SPONDYLOSIS WITH RADICULOPATHY, PERICO 11/07/2017 ARTEMIO RAMIREZ BALLISTICS PROFESSOR Ot M47.27 OTHER SPONDYLOSIS WITH RADICULOPATHY, PERICO Procedures Code Description [place] [address] HEMOCCULT 01/30/2013 72221 ROUTINE VENIPUNCTURE 04/05/2013 03487 A1C (IN-HOUSE) 04/05/2013 78708 CBC 04/05/2013 99732 PSA TOTAL 04/05/2013 48587 TSH 04/05/2013 98525 LIPID PANEL 04/05/2013 58447 CMP 04/05/2013 2333866 GFR CALC (RESULT ONLY) 04/05/2013 56907 ROUTINE VENIPUNCTURE 07/17/2013 72973 VALPROIC ACID / DEPAKOTE 07/17/2013 S0390 ROUT FOOT CARE PER VISIT 09/06/2013 95415 EKG, TRACING (IN-HOUSE) 02/12/2014 CARDIOLOG NATHAN SCHMIDT 02/12/2014 40426 ROUTINE VENIPUNCTURE 02/12/2014 04625 CBC 02/12/2014 7236472 GFR CALC (RESULT ONLY) 02/12/2014 08998 CMP 02/12/2014 99201 LIPID PANEL 02/12/2014 58847 MAGNESIUM 02/12/2014 95043 PSA TOTAL 02/12/2014 43728 TSH 02/12/2014 83704 EKG, TRACING (IN-HOUSE) 04/10/2014 92961 OXIMETRY 04/10/2014 21604 ECHO 2D 04/30/2014 20379 NUCLEAR STRESS TESTING 05/13/2014 07994 OXIMETRY 05/23/2014 Podiatry Suzy Jean 05/23/2014 94855 A1C (IN-HOUSE) 09/03/2014 49292 CBC 10/18/2014 37673 TSH 10/18/2014 02881 CMP 10/18/2014 13012 LIPID PANEL 10/18/2014 1850020 GFR CALC (RESULT ONLY) 10/18/[address] CHEST W/DYE 10/21/[address] ABDOMEN W/ CONTRAST 10/21/2014 GENERAL S OLE CABA 10/21/2014 52985 ROUTINE VENIPUNCTURE 10/29/2014 66207 DEBRIDE NAIL >6 11/08/2014 Results Test Result Range Urine drug screening test - 07/02/16 12:28 Urine acetaminophen detection by screening method NEGATIVE NEGATIVE Urine phencyclidine detection by screening method NEGATIVE NEGATIVE Urine benzodiazepines detection by screening method NEGATIVE NEGATIVE Urine cocaine detection NEGATIVE NEGATIVE Urine amphetamines detection by screening method NEGATIVE NEGATIVE Urine methamphetamine detection by screening method NEGATIVE NEGATIVE Urine cannabinoids detection by screening method POSITIVE NEGATIVE Urine opiates detection by screening method NEGATIVE NEGATIVE Urine barbiturates detection NEGATIVE NEGATIVE Screening urine tricyclic antidepressants detection NEGATIVE NEGATIVE Urine methadone detection by screening method NEGATIVE NEGATIVE Complete urinalysis with reflex to culture - 07/02/16 12:28 Urine color determination YELLOW NRG Urine clarity determination CLEAR NRG Urine pH measurement by test strip 6 5-9 Specific gravity of urine by test strip 1.025 1.016- 1.022 Urine protein assay by test strip, semi-quantitative 1+ NEGATIVE Urine glucose detection by automated test strip NEGATIVE NEGATIVE Erythrocytes detection in urine sediment by light microscopy NEGATIVE NEGATIVE Urine ketones detection by automated test strip NEGATIVE NEGATIVE Urine nitrite detection by test strip NEGATIVE NEGATIVE Urine total bilirubin detection by test strip NEGATIVE NEGATIVE Urine urobilinogen measurement by automated test strip (mass/volume) 1 mg/dL NORMAL Urine leukocyte esterase detection by dipstick 1+ NEGATIVE Automated urine sediment erythrocyte count by microscopy (number/high power field) NONE NRG Automated urine sediment leukocyte count by microscopy (number/high power field ) [HPF] NRG Bacteria detection in urine sediment by light microscopy NEGATIVE NRG Squamous epithelial cells detection in urine sediment by light microscopy 0-2 NRG Crystals detection in urine sediment by light microscopy NONE NRG Casts detection in urine sediment by light microscopy NONE NRG Mucus detection in urine sediment by light microscopy SMALL NRG Complete urinalysis with reflex to culture NO NRG Complete blood count (CBC) with automated white blood cell (WBC) differential - 07/02/16 12:35 Blood leukocytes automated count (number/volume) 10.4 10*3/uL 4.3-11.0 Blood erythrocytes automated count (number/volume) 4.32 10*6/uL 4.35-5.85 Venous blood hemoglobin measurement (mass/volume) 13.3 g/dL 13.3-17.7 Blood hematocrit (volume fraction) 38 % 40-54 Automated erythrocyte mean corpuscular volume 88 [foz_us] 80-99 Automated erythrocyte mean corpuscular hemoglobin (mass per erythrocyte) 31 pg 25-34 Automated erythrocyte mean corpuscular hemoglobin concentration measurement ( mass/volume) 35 g/dL 32-36 Automated erythrocyte distribution width ratio 13.2 % 10.0-14.5 Automated blood platelet count (count/volume) 203 10*3/uL 130-400 Automated blood platelet mean volume measurement 10.3 [foz_us] 7.4-10.4 Automated blood neutrophils/100 leukocytes 63 % 42-75 Automated blood lymphocytes/100 leukocytes 22 % 12-44 Blood monocytes/100 leukocytes 10 % 0-12 Automated blood eosinophils/100 leukocytes 4 % 0-10 Automated blood basophils/100 leukocytes 1 % 0-10 Blood neutrophils automated count (number/volume) 6.5 10*3 1.8-7.8 Blood lymphocytes automated count (number/volume) 2.3 10*3 1.0-4.0 Blood monocytes automated count (number/volume) 1.1 10*3 0.0-1.0 Automated eosinophil count 0.4 10*3/uL 0.0-0.3 Automated blood basophil count (count/volume) 0.1 10*3/uL 0.0-0.1 Comprehensive metabolic panel - 07/02/16 12:35 Serum or plasma sodium measurement (moles/volume) 133 mmol/L 135-145 Serum or plasma potassium measurement (moles/volume) 4.3 mmol/L 3.6-5.0 Serum or plasma chloride measurement (moles/volume) 102 mmol/L 98-107 Carbon dioxide 21 mmol/L 21-32 Serum or plasma anion gap determination (moles/volume) 10 mmol/L 5-14 Serum or plasma urea nitrogen measurement (mass/volume) 15 mg/dL 7-18 Serum or plasma creatinine measurement (mass/volume) 0.69 mg/dL 0.60-1.30 Serum or plasma urea nitrogen/creatinine mass ratio 22 NRG Serum or plasma creatinine measurement with calculation of estimated glomerular filtration rate > NRG Serum or plasma glucose measurement (mass/volume) 158 mg/dL 70-105 Serum or plasma calcium measurement (mass/volume) 8.8 mg/dL 8.5-10.1 Serum or plasma total bilirubin measurement (mass/volume) 0.2 mg/dL 0.1-1.0 Serum or plasma alkaline phosphatase measurement (enzymatic activity/volume) 40 U/L 40-136 Serum or plasma aspartate aminotransferase measurement (enzymatic activity/ volume) 8 U/L 5-34 Serum or plasma alanine aminotransferase measurement (enzymatic activity/volume ) 12 U/L 0-55 Serum or plasma protein measurement (mass/volume) 6.1 g/dL 6.4-8.2 Serum or plasma albumin measurement (mass/volume) 3.8 g/dL 3.2-4.5 Capillary blood glucose measurement by glucometer (mass/volume) - 07/23/16 09: 06 Capillary blood glucose measurement by glucometer (mass/volume) 102 mg/dL 70-110 CBC With Differential/Platelet - 11/23/16 14:37 WBC 13.2 x10E3/uL 3.4-10.8 RBC 4.98 x10E6/uL 4.14-5.80 Hemoglobin 14.6 g/dL 12.6-17.7 Hematocrit 43.7 % 37.5-51.0 MCV 88 fL 79-97 MCH 29.3 pg 26.6-33.0 MCHC 33.4 g/dL 31.5-35.7 RDW 14.9 % 12.3-15.4 Platelets 281 x10E3/uL 150-379 Neutrophils 62 % Lymphs 23 % Monocytes 12 % Eos 3 % Basos 0 % Neutrophils (Absolute) 8.2 x10E3/uL 1.4-7.0 Lymphs (Absolute) 3.0 x10E3/uL 0.7-3.1 Monocytes(Absolute) 1.6 x10E3/uL 0.1-0.9 Eos (Absolute) 0.4 x10E3/uL 0.0-0.4 Baso (Absolute) 0.0 x10E3/uL 0.0-0.2 Immature Granulocytes 0 % Immature Grans (Abs) 0.0 x10E3/uL 0.0-0.1 Comp. Metabolic Panel (14) - 11/23/16 14:37 Glucose, Serum 111 mg/dL 65-99 BUN 12 mg/dL 8-27 Creatinine, Serum 0.71 mg/dL 0.76-1.27 eGFR If NonAfricn Am 101 mL/min/1.73 >59 eGFR If Africn Am 116 mL/min/1.73 >59 BUN/Creatinine Ratio 17 10-22 Sodium, Serum 137 mmol/L 134-144 Potassium, Serum 6.2 mmol/L 3.5-5.2 Chloride, Serum 97 mmol/L 96-106 Carbon Dioxide, Total 26 mmol/L 18-29 Calcium, Serum 9.3 mg/dL 8.6-10.2 Protein, Total, Serum 7.0 g/dL 6.0-8.5 Albumin, Serum 4.6 g/dL 3.6-4.8 Globulin, Total 2.4 g/dL 1.5-4.5 A/G Ratio 1.9 1.1-2.5 Bilirubin, Total 0.3 mg/dL 0.0-1.2 Alkaline Phosphatase, S 53 IU/L 39-117 AST (SGOT) 8 IU/L 0-40 ALT (SGPT) 13 IU/L 0-44 Lipid Panel - 11/23/16 14:37 Cholesterol, Total 135 mg/dL 100-199 Triglycerides 95 mg/dL 0-149 HDL Cholesterol 41 mg/dL >39 VLDL Cholesterol [place] 19 mg/dL 5-40 LDL Cholesterol Calc 75 mg/dL 0-99 Capillary blood glucose measurement by glucometer (mass/volume) - 12/10/16 11: 21 Capillary blood glucose measurement by glucometer (mass/volume) 135 mg/dL 70-110 Urinalysis - 06/24/17 13:31 Icotest N/A Negative Urine Volume Urine Volume Sufficient (10mL) Urine-Appearance Clear Clear Urine-Bacteria Negative Urine-Bilirubin Negative Negative Urine-Blood Negative Negative Urine-Color Yellow Colorless-Lt. Yellow Urine-Epithelial Cells 0-5/HPF Urine-Glucose Negative Negative Urine-Ketones Negative Negative Urine-Leukocytes Negative Negative Urine-Nitrite Negative Negative Urine-Other Urine Saved if Culture Needed (48hrs from time of collection) Urine-pH 7.0 5-8.5 Urine-Protein Negative Negative Urine-Specific [place] 1.010 1.000-1.030 Urine-WBC Negative Urobilinogen 0.2 E.U./dL 0.2-1.0 MRSA Screen - 06/24/17 13:31 FINAL CULTURE RESULTS MRSA Negative Nasal Culture MEDIA PLATED Setup at 14:43 on 06/24/2017 Capillary blood glucose measurement by glucometer (mass/volume) - 07/12/17 11: 12 Capillary blood glucose measurement by glucometer (mass/volume) 89 mg/dL 70-110 Complete blood count (CBC) with automated white blood cell (WBC) differential - 05/04/18 17:45 Blood leukocytes automated count (number/volume) 9.8 10*3/uL 4.3-11.0 Blood erythrocytes automated count (number/volume) 4.38 10*6/uL 4.35-5.85 Venous blood hemoglobin measurement (mass/volume) 12.8 g/dL 13.3-17.7 Blood hematocrit (volume fraction) 36 % 40-54 Automated erythrocyte mean corpuscular volume 83 [foz_us] 80-99 Automated erythrocyte mean corpuscular hemoglobin (mass per erythrocyte) 29 pg 25-34 Automated erythrocyte mean corpuscular hemoglobin concentration measurement ( mass/volume) 35 g/dL 32-36 Automated erythrocyte distribution width ratio 16.3 % 10.0-14.5 Automated blood platelet count (count/volume) 225 10*3/uL 130-400 Automated blood platelet mean volume measurement 11.0 [foz_us] 7.4-10.4 Automated blood neutrophils/100 leukocytes 57 % 42-75 Automated blood lymphocytes/100 leukocytes 27 % 12-44 Blood monocytes/100 leukocytes 15 % 0-12 Automated blood eosinophils/100 leukocytes 1 % 0-10 Automated blood basophils/100 leukocytes 0 % 0-10 Blood neutrophils automated count (number/volume) 5.6 10*3 1.8-7.8 Blood lymphocytes automated count (number/volume) 2.6 10*3 1.0-4.0 Blood monocytes automated count (number/volume) 1.5 10*3 0.0-1.0 Automated eosinophil count 0.1 10*3/uL 0.0-0.3 Automated blood basophil count (count/volume) 0.0 10*3/uL 0.0-0.1 Comprehensive metabolic panel - 05/04/18 17:45 Serum or plasma sodium measurement (moles/volume) 137 mmol/L 135-145 Serum or plasma potassium measurement (moles/volume) 3.6 mmol/L 3.6-5.0 Serum or plasma chloride measurement (moles/volume) 107 mmol/L 98-107 Carbon dioxide 20 mmol/L 21-32 Serum or plasma anion gap determination (moles/volume) 10 mmol/L 5-14 Serum or plasma urea nitrogen measurement (mass/volume) 65 mg/dL 7-18 Serum or plasma creatinine measurement (mass/volume) 3.51 mg/dL 0.60-1.30 Serum or plasma urea nitrogen/creatinine mass ratio 19 NRG Serum or plasma creatinine measurement with calculation of estimated glomerular filtration rate 18 NRG Serum or plasma glucose measurement (mass/volume) 90 mg/dL 70-105 Serum or plasma calcium measurement (mass/volume) 8.2 mg/dL 8.5-10.1 Serum or plasma total bilirubin measurement (mass/volume) 0.3 mg/dL 0.1-1.0 Serum or plasma alkaline phosphatase measurement (enzymatic activity/volume) 57 U/L 40-136 Serum or plasma aspartate aminotransferase measurement (enzymatic activity/ volume) 12 U/L 5-34 Serum or plasma alanine aminotransferase measurement (enzymatic activity/volume ) < U/L 0-55 Serum or plasma protein measurement (mass/volume) 6.2 g/dL 6.4-8.2 Serum or plasma albumin measurement (mass/volume) 3.5 g/dL 3.2-4.5 Magnesium - 05/04/18 17:45 Magnesium 2.1 mg/dL 1.8-2.4 Serum or plasma creatine kinase measurement (enzymatic activity/volume) - 05/04 17:45 Serum or plasma creatine kinase measurement (enzymatic activity/volume) 190 U/L 30-200 Serum or plasma creatine kinase MB measurement (enzymatic activity/volume) - 17:45 Serum or plasma creatine kinase MB measurement (enzymatic activity/volume) 7.3 ng/mL <6.6 Serum or plasma troponin i.cardiac measurement (mass/volume) - 05/04/18 17:45 Serum or plasma troponin i.cardiac measurement (mass/volume) < ng/ mL <0.30 Serum or plasma amylase measurement (enzymatic activity/volume) - 05/04/18 17: 45 Serum or plasma amylase measurement (enzymatic activity/volume) 52 U /L 25-125 Lipase - 05/04/18 17:45 Lipase 28 U/L 8-78 Serum or plasma lithium measurement (moles/volume) - 05/04/18 17:45 BNP level < pg/mL <100.0 Serum or plasma thyrotropin measurement by detection limit <=0.05 miu/l (units/ volume) - 05/04/18 17:45 Serum or plasma thyrotropin measurement by detection limit <=0.05 miu/l (units/ volume) 0.78 u[iU]/mL 0.35-4.94 PT panel in platelet poor plasma by coagulation assay - 05/04/18 17:45 Prothrombin time (PT) in platelet poor plasma by coagulation assay 13.7 s 12.2-14.7 INR in platelet poor plasma or blood by coagulation assay 1.1 0.8-1.4 Activated partial thromboplastin time (aPTT) in platelet poor plasma bycoagulation assay - 05/04/18 17:45 Activated partial thromboplastin time (aPTT) in platelet poor plasma bycoagulation assay 26 s 24-35 Serum or plasma acetaminophen measurement (mass/volume) - 05/04/18 17:45 Serum or plasma acetaminophen measurement (mass/volume) < ug/mL 10-30 Serum or plasma ethanol measurement (mass/volume) - 05/04/18 17:45 Serum or plasma ethanol measurement (mass/volume) < mg/dL <10 Blood lactic acid measurement (moles/volume) - 05/04/18 18:10 Blood lactic acid measurement (moles/volume) 1.32 mmol/L 0.50-2.00 Capillary blood glucose measurement by glucometer (mass/volume) - 05/04/18 18: 30 Capillary blood glucose measurement by glucometer (mass/volume) 82 mg/dL 70-110 Encounters ACCT No. Visit Date/Time Discharge Status Pt. Type Provider Facility Loc./Unit Complaint [id number] 02/07/2015 09:33:00 02/07/2015 23:59:59 [facility] Outpatient SUZY JEAN DPM [id number] 11/08/2014 09:29:00 11/08/2014 23:59:59 [facility] Outpatient SUZY JEAN DPM [id number] 10/18/2014 07:34:00 10/18/2014 23:59:59 CLS Outpatient MARS TEAGUE APRN [id number] 10/15/2014 07:37:00 10/15/2014 23:59:59 CLS Outpatient MARS TEAGUE APRN [id number] 09/03/2014 09:57:00 09/03/2014 23:59:59 CLS Outpatient MARS TEAGUE APRN N [id number] 05/23/2014 08:39:00 05/23/2014 23:59:59 CLS Outpatient MARS TEAGUE APRN N [id number] 04/10/2014 10:08:00 04/10/2014 23:59:59 CLS Outpatient RODOLFO SAHNI DO [id number] 04/10/2014 10:08:00 04/10/2014 23:59:59 CLS Outpatient RODOLFO SAHNI DO [id number] 02/12/2014 09:06:00 02/12/2014 23:59:59 CLS Outpatient MARS TEAGUE APRN N [id number] 09/06/2013 10:12:00 09/06/2013 23:59:59 CLS Outpatient MARS TEAGUE APRN N [id number] 01/30/2013 10:52:00 01/30/2013 23:59:59 CLS Outpatient [id number] 07/17/2013 08:59:00 Document Registration [id number] 06/26/2013 11:56:00 Document Registration [id number] 04/05/2013 09:55:00 Document Registration [id number] 10/06/2017 16:13:00 10/06/2017 23:59:59 CLS Outpatient ARTEMIO RAMIREZ APRN [facility] RAD M54.17 BACK PAIN [id number] 09/21/2017 11:08:00 09/21/2017 14:38:00 DIS Emergency CLAUDINE CHRISTIANSON [facility] ER RT LEG PAIN [id number] 07/12/2017 09:33:00 07/12/2017 13:18:00 DIS Outpatient AISHWARYA LE DO [facility] ENDO DIARRHEA [id number] 07/08/2017 05:53:00 07/08/2017 23:59:59 CLS Outpatient AISHWARYA LE DO [facility] PREOP DIARRHEA [id number] 06/07/2017 10:45:00 06/07/2017 23:59:59 CLS Preadmit AISHWARYA LE DO [facility] ENDO DIARRHEA [id number] 06/02/2017 06:51:00 06/02/2017 23:59:59 CLS Outpatient AISHWARYA LE DO [facility] PREOP DIARRHEA [id number] 03/22/2017 09:30:00 03/22/2017 23:59:59 CLS Preadmit ANGEL STYLES MD [facility] RAD M54.2 [id number] 12/09/2016 08:49:00 12/16/2016 10:01:00 DIS Outpatient ANGEL STYLES MD [facility] REHAB CERVICALGIA [id number] 12/10/2016 10:58:00 12/10/2016 11:41:00 DIS Outpatient ANGEL STYLES MD [facility] CARD M50.13 [id number] 07/20/2016 10:35:00 08/19/2016 14:56:00 DIS Outpatient NILAM MCDONALD [facility] REHAB NECK PAIN [id number] 07/23/2016 08:39:00 07/23/2016 09:28:00 DIS Outpatient ANGEL STYLES MD [facility] CARD DISC DISORDER [id number] 07/02/2016 11:23:00 07/02/2016 13:47:00 DIS Emergency MIKAELA LAM MD [facility] ER PSYCH EVAL [id number] 02/11/2016 13:22:00 02/11/2016 23:59:59 CLS Outpatient NILAM MCDONALD [facility] RAD NECK PAIN [id number] 11/06/2014 10:07:00 11/06/2014 13:35:00 DIS Outpatient TONIA CABA MD [facility] SDC DIARRHEA;SCREENING [id number] 11/05/2014 08:43:00 11/05/2014 23:59:59 CLS Outpatient TONIA CABA MD [facility] PREOP DIARRHEA;SCREENING [id number] 10/21/2014 13:32:00 10/21/2014 23:59:59 CLS Outpatient MARS RAMIREZ FINANCIAL SERVICES INTERN [facility] RAD DIARRHEA DISTICULAR NEOPLASM HIGH RISK MEDICATION [id number] 05/13/2014 11:14:00 05/13/2014 23:59:59 CLS Outpatient ROXANA CORTEZ FACCNATHAN FACP CCDS [facility] CARD DYSPENA,HTN [id number] 04/30/2014 09:30:00 04/30/2014 23:59:59 CLS Outpatient ROXANA CORTEZ FACC, NATHAN PATEL CCDS [facility] CARD DYSPENA,HTN [id number] 05/04/2018 18:21:00 Document Registration [id number] 05/19/2018 10:40:00 ACT Outpatient [facility]AIN [facility] [id number] 07/07/2017 12:20:00 07/07/2017 13:12:00 DIS Outpatient Rad Ramirez [id number] 06/30/2017 00:00:00 06/30/2017 10:28:00 DIS Outpatient GEORGINA KAUFMAN [id number] 06/24/2017 12:50:00 06/24/2017 23:59:00 DIS Outpatient GEORGINA KAUFMAN [id number] 06/29/2017 15:10:24 Document Registration [id number] 11/06/2014 10:53:55 ACT Document Registration [id number] 11/24/2016 07:05:00 Document Registration
[2018-05-04 20:50] VITALS: BP 98/45
--- OUTSIDE RECORDS SUMMARY | 2018-05-04 21:00 | XMS REPORT | Clinical Summary ---
Author Author [facility] Organization [facility] Address Unknown Phone Unavailable Care Team Providers Care Senior Engineering Tech Name Role Phone Self, Referral PCP Unavailable Source Comments Some departments are not documenting in the electronic medical record. If you do not see the information that you expected, contact Release of Information in the Health Information Management department at [phone] for further assistance in locating additional records.[facility] Allergies No Known Allergies Current Medications Prescription [...] Taken Blood Pressure 111/67 10/06/2007 9:56 AM CLIENT SERVER PROGRAMMER Pulse 65 10/06/2007 9:56 AM CLIENT SERVER PROGRAMMER Temperature 36.9 C (98.4 F) 10/06/2007 9:56 AM CLIENT SERVER PROGRAMMER Respiratory Rate - - Oxygen Saturation 96% 10/06/2007 9:56 AM CLIENT SERVER PROGRAMMER Inhaled Oxygen - - Concentration Weight 82.6 kg (182 lb) 10/04/2007 7:48 AM CLIENT SERVER PROGRAMMER Height 167.6 cm (5' 6") 10/04/2007 7:48 AM CLIENT SERVER PROGRAMMER Body Mass Index 29.38 10/04/2007 7:48 AM CLIENT SERVER PROGRAMMER Plan of Treatment Health Maintenance Due Date Last Done Comments HEPATITIS C SCREENING 1954 PHYSICAL (COMPREHENSIVE) 1961 EXAM PERTUSSIS VACCINE 1965 HIV SCREENING 1969 TETANUS VACCINE 1971 COLORECTAL CANCER 2004 SCREENING SHINGLES VACCINE 2014 INFLUENZA VACCINE 08/21/2018 Results Not on filefrom Last 3 Months
--- OUTSIDE RECORDS SUMMARY | 2018-05-04 21:10 | XMS REPORT | Continuity of Care Document ---
Author Author [facility] Address Unknown Phone Unavailable Allergies Active [...] DIARRHEA 06/21/2013 787.91 DIARRHEA 06/21/2013 GALLEGOS CASHERO MANAGER GAME, MARS N 787.91 DIARRHEA 06/21/2013 GALLEGOS CASHERO MANAGER GAME, MARS N 787.91 DIARRHEA 06/21/2013 SAHNI DO, RODOLFO K 787.91 DIARRHEA 06/21/2013 SAHNI DO, RODOLFO K 787.91 DIARRHEA 06/21/2013 GALLEGOS CASHERO MANAGER GAME, MARS N 787.91 DIARRHEA 06/21/2013 GALLEGOS CASHERO MANAGER GAME, MARS N 787.91 DIARRHEA 06/21/2013 GALLEGOS CASHERO MANAGER GAME, MARS N 787.91 DIARRHEA 06/21/2013 GALLEGOS CASHERO MANAGER GAME, MARS N 787.91 DIARRHEA 06/21/2013 VANIA DPM, SUZY 787.91 DIARRHEA 06/21/2013 VANIA DPM, SUZY 787.91 DIARRHEA 07/10/2013 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 07/10/2013 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 07/10/2013 GALLEGOS CASHERO MANAGER GAME, MARS N 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 07/10/2013 GALLEGOS CASHERO MANAGER GAME, MARS N 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 07/10/2013 SAHNI DO, RODOLFO K 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 07/10/2013 SAHNI DO, RODOLFO K 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 07/10/2013 GALLEGOS CASHERO MANAGER GAME, MARS N 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 07/10/2013 GALLEGOS CASHERO MANAGER GAME, MARS N 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 07/10/2013 GALLEGOS CASHERO MANAGER GAME, MARS N 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 07/10/2013 GALLEGOS CASHERO MANAGER GAME, MARS N 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 07/10/2013 VANIA DPM, SUZY 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 07/10/2013 VANIA DPM, SUZY 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 07/17/2013 719.47 PAIN IN JOINT INVOLVING ANKLE AND FOOT 07/17/2013 V58.69 LONG-TERM ( CURRENT) USE OF OTHER MEDICATIONS 07/17/2013 V67.9 UNSPECIFIED FOLLOW-UP EXAMINATION 07/17/2013 GALLEGOS CASHERO MANAGER GAME, MARS N 719.47 PAIN IN JOINT INVOLVING ANKLE AND FOOT 07/17/2013 GALLEGOS CASHERO MANAGER GAME, MARS N V58.69 LONG-TERM (CURRENT) USE OF OTHER MEDICATIONS 07/17/2013 GALLEGOS CASHERO MANAGER GAME, MARS N V67.9 UNSPECIFIED FOLLOW-UP EXAMINATION 07/17/2013 GALLEGOS CASHERO MANAGER GAME, MARS N 719.47 PAIN IN JOINT INVOLVING ANKLE AND FOOT 07/17/2013 GALLEGOS CASHBEN JOSHI, MARS N V58.69 LONG-TERM (CURRENT) USE OF OTHER MEDICATIONS 07/17/2013 GALLEGOS CASHERO MANAGER GAME, MARS N V67.9 UNSPECIFIED FOLLOW-UP EXAMINATION 07/17/2013 [...] V67.9 UNSPECIFIED FOLLOW-UP EXAMINATION 07/17/2013 GALLEGOS CASHERO MANAGER GAME, MARS N 719.47 PAIN IN JOINT INVOLVING ANKLE AND FOOT 07/17/2013 GALLEGOS CASHERO MANAGER GAME, MARS N V58.69 LONG-TERM (CURRENT) USE OF OTHER MEDICATIONS 07/17/2013 GALLEGOS CASHERO MANAGER GAME, MARS N V67.9 UNSPECIFIED FOLLOW-UP EXAMINATION 07/17/2013 GALLEGOS CASHERO MANAGER GAME, MARS N 719.47 PAIN IN JOINT INVOLVING ANKLE AND FOOT 07/17/2013 ROSY ETIENNE APRN, MARS N V58.69 LONG-TERM (CURRENT) USE OF OTHER MEDICATIONS 07/17/2013 ROSY ETIENNE APRN, MARS N V67.9 UNSPECIFIED FOLLOW-UP EXAMINATION 07/17/2013 ROSY ETIENNE MANAGER GAME, MARS N 719.47 PAIN IN JOINT INVOLVING ANKLE AND FOOT 07/17/2013 ROSY ETIENNE APRN, MARS N V58.69 LONG-TERM (CURRENT) USE OF OTHER MEDICATIONS 07/17/2013 ROSY ESTRADAERO MANAGER GAME, MARS N V67.9 UNSPECIFIED FOLLOW-UP EXAMINATION 07/17/2013 ROSY ETIENNE APRN, MARS N 719.47 PAIN IN JOINT INVOLVING [...] V67.9 UNSPECIFIED FOLLOW-UP EXAMINATION 09/06/2013 GALLEGOS CASHERO MANAGER GAME, MARS N 700 CORNS AND CALLOSITIES 09/06/2013 GALLEGOS CASHERO MANAGER GAME, MARS N 700 CORNS AND CALLOSITIES 09/06/2013 SAHNI DO, RODOLFO K 700 CORNS AND CALLOSITIES 09/06/2013 SAHNI DO, RODOLFO K 700 CORNS AND CALLOSITIES 09/06/2013 GALLEGOS CASHERO MANAGER GAME, MARS N 700 CORNS AND CALLOSITIES 09/06/2013 GALLEGOS CASHERO MANAGER GAME, MARS N 700 CORNS AND CALLOSITIES 09/06/2013 GALLEGOS CASHERO MANAGER GAME, MARS N 700 CORNS AND CALLOSITIES 09/06/2013 GALLEGOS CASHERO MANAGER GAME, MARS N 700 CORNS AND CALLOSITIES 09/06/2013 [...] RODOLFO K 786.09 DYSPNEA 04/10/2014 GALLEGOS CASHERO MANAGER GAME, MARS N 401.9 HYPERTENSION, UNSPECIFIED ESSENTIAL 04/10/2014 GALLEGOS CASHERO MANAGER GAME, MARS N 427.89 BRADYCARDIA 04/10/2014 GALLEGOS CASHERO MANAGER GAME, MARS N 786.09 DYSPNEA 04/10/2014 GALLEGOS CASHERO MANAGER GAME, MARS N 401.9 HYPERTENSION, UNSPECIFIED ESSENTIAL 04/10/2014 GALLEGOS CASHERO MANAGER GAME, MARS N 427.89 BRADYCARDIA 04/10/2014 GALLEGOS CASHERO MANAGER GAME, MARS N 786.09 DYSPNEA 04/10/2014 GALLEGOS CASHERO MANAGER GAME, MARS N 401.9 HYPERTENSION, UNSPECIFIED ESSENTIAL 04/10/2014 GLALEGOS CASHERO MANAGER GAME, MARS N 427.89 BRADYCARDIA 04/10/2014 GALLEGOS CASHERO MANAGER GAME, MARS N 786.09 DYSPNEA 04/10/2014 GALLEGOS CASHERO MANAGER GAME, MARS N 401.9 HYPERTENSION, UNSPECIFIED ESSENTIAL 04/10/2014 GALLEGOS CASHERO MANAGER GAME, MARS N 427.89 BRADYCARDIA 04/10/2014 GALLEGOS CASHERO MANAGER GAME, MARS N 786.09 DYSPNEA 04/10/2014 VANIA DPM, SUZY 401.9 HYPERTENSION, UNSPECIFIED ESSENTIAL 04/10/2014 VANIA DPM, SUZY 427.89 BRADYCARDIA 04/10/2014 VANIA DPM, SUZY 786.09 DYSPNEA 04/10/2014 VANIA DPM, SUZY 401.9 HYPERTENSION, UNSPECIFIED ESSENTIAL 04/10/2014 VANIA DPM, SUZY 427.89 BRADYCARDIA 04/10/2014 VANIA DPM, SUZY 786.09 DYSPNEA 10/15/2014 ROSY ETIENNE MANAGER GAME, MARS N 302.9 UNSPECIFIED PSYCHOSEXUAL DISORDER 10/15/2014 ROSY ETIENNE MANAGER GAME, MARS N 302.9 UNSPECIFIED PSYCHOSEXUAL DISORDER 10/15/2014 [...] CABA MD Ot V72.84 11/20/2014 MARS RAMIREZ NANOFABRICATION SPECIALIST Ot 239.5 11/20/2014 MARS RAMIREZ NANOFABRICATION SPECIALIST Ot 401.9 11/20/2014 MARS RAMIREZ NANOFABRICATION SPECIALIST Ot 787.91 11/20/2014 MARS RAMIREZ NANOFABRICATION SPECIALIST Ot V58.69 11/25/2014 MARS RAMIREZ NANOFABRICATION SPECIALIST Ot 239.5 11/25/2014 MARS RAMIREZ NANOFABRICATION SPECIALIST Ot 401.9 11/25/2014 MARS RAMIREZ NANOFABRICATION SPECIALIST Ot 787.91 11/25/2014 MARS RAMIREZ NANOFABRICATION SPECIALIST Ot V58.69 01/15/2015 ROXANA CORTEZ FACC, ALI [...] FACP CCDS Ot 786.09 02/11/2016 MARS RAMIREZ NANOFABRICATION SPECIALIST Ot 239.5 02/11/2016 MARS RAMIREZ NANOFABRICATION SPECIALIST Ot 401.9 02/11/2016 MARS RAMIREZ NANOFABRICATION SPECIALIST Ot 787.91 02/11/2016 MARS RAMIREZ NANOFABRICATION SPECIALIST Ot V58.69 02/11/2016 GERTRUDIS CORTEZ, TONIA Ot V72.84 02/12/2016 NILAM MCDONALD NANOFABRICATION SPECIALIST Ot M54.2 03/02/2016 NILAM MCDONALD NANOFABRICATION SPECIALIST Ot M54.2 03/09/2016 NILAM MCDONALD NANOFABRICATION SPECIALIST Ot M54.2 CERVICALGIA 06/17/2016 ROXANA CORTEZ FACC, [...] 786.09 RESPIRATORY ABNORM NEC 06/17/2016 MARS RAMIREZ NANOFABRICATION SPECIALIST Ot 239.5 OTHER NEOPLASM NOS 06/17/2016 MARS RAMIREZ Jerson NANOFABRICATION SPECIALIST Ot 401.9 HYPERTENSION NOS 06/17/2016 OMER RAMIREZCY N NANOFABRICATION SPECIALIST Ot 787.91 DIARRHEA 06/17/2016 MARS RAMIREZ Jerson NANOFABRICATION SPECIALIST Ot V58.69 OTH MED,LT,CURRENT USE 06/17/2016 TONIA CABA MD Ot V72.84 EXAM PRE-OPERATIVE NOS 06/17/2016 NILAM MCDONALD NANOFABRICATION SPECIALIST Ot M54.2 CERVICALGIA 06/24/2016 NILAM MCDONALD NANOFABRICATION SPECIALIST Ot M54.2 CERVICALGIA 06/25/2016 NILAM MCDONALD A NANOFABRICATION SPECIALIST Ot M54.2 CERVICALGIA 06/25/2016 NILAM MCDONALD NANOFABRICATION SPECIALIST Ot M54.2 CERVICALGIA 07/02/2016 ROXANA CORTEZ FACC, [...] RESPIRATORY ABNORM NEC 07/02/2016 MARS RAMIREZ Jerson NANOFABRICATION SPECIALIST Ot 239.5 OTHER NEOPLASM NOS 07/02/2016 MARS RAMIREZ N NANOFABRICATION SPECIALIST Ot 401.9 HYPERTENSION NOS 07/02/2016 ASHLEY MARS N NANOFABRICATION SPECIALIST Ot 787.91 DIARRHEA 07/02/2016 ASHLEY MARS Jerson NANOFABRICATION SPECIALIST Ot V58.69 OTH MED,LT,CURRENT USE 07/02/2016 TONIA CABA MD Ot V72.84 EXAM PRE-OPERATIVE NOS 07/02/2016 NILAM MCDONALD NANOFABRICATION SPECIALIST Ot M54.2 CERVICALGIA 07/02/2016 NILAM MCDONALD NANOFABRICATION SPECIALIST Ot M54.2 CERVICALGIA 07/02/2016 MIKAELA LAM MD Ot F17.210 NICOTINE DEPENDENCE, CIGARETTES, UNCOMPL 07/02/2016 MIKAELA LAM MD Ot R45.851 SUICIDAL IDEATIONS 07/06/2016 MIKAELA LAM MD Ot F17.210 NICOTINE DEPENDENCE, CIGARETTES, UNCOMPL 07/06/2016 MIKAELA LAM MD Ot R45.851 SUICIDAL IDEATIONS 07/16/2016 NILAM MCDONALD NANOFABRICATION SPECIALIST Ot M54.2 CERVICALGIA 07/23/2016 ROXANA CORTEZ FACC, [...] 786.09 RESPIRATORY ABNORM NEC 07/23/2016 MARS RAMIREZ NANOFABRICATION SPECIALIST Ot 239.5 OTHER NEOPLASM NOS 07/23/2016 MARS RAMIREZ N NANOFABRICATION SPECIALIST Ot 401.9 HYPERTENSION NOS 07/23/2016 MARS RAMIREZ N NANOFABRICATION SPECIALIST Ot 787.91 DIARRHEA 07/23/2016 MARS RAMIREZ N NANOFABRICATION SPECIALIST Ot V58.69 OTH MED,LT,CURRENT USE 07/23/2016 GERTRUDIS CORTEZ, TONIA Ot V72.84 EXAM PRE-OPERATIVE NOS 07/23/2016 NILAM MCDONALD NANOFABRICATION SPECIALIST Ot M54.2 CERVICALGIA 07/23/2016 NILAM MCDONALD NANOFABRICATION SPECIALIST Ot M54.2 CERVICALGIA 07/23/2016 ANGEL STYLES MD Ot M50.13 CERVICAL DISC DISORDER W RADICULOPATHY, 07/23/2016 ANGEL STYLES MD Ot Z79.899 OTHER RN CLINICAL QUALITY (CURRENT) DRUG THERAPY 08/05/2016 ANGEL STYLES MD Ot M50.13 CERVICAL DISC DISORDER W RADICULOPATHY, 08/05/2016 ANGEL STYLES MD Ot Z79.899 OTHER RN CLINICAL QUALITY (CURRENT) DRUG THERAPY 08/07/2016 ANGEL STYLES MD Ot M50.13 CERVICAL DISC DISORDER W RADICULOPATHY, 08/07/2016 ANGEL STYLES MD Ot Z79.899 OTHER INTERMEDIATE (CURRENT) DRUG THERAPY 08/17/2016 NILAM MCDONALD NANOFABRICATION SPECIALIST Ot M54.2 CERVICALGIA 08/19/2016 NILAM MCDONALD NANOFABRICATION SPECIALIST Ot M54.2 CERVICALGIA 11/16/2016 ROXANA CORTEZ FACC, [...] RESPIRATORY ABNORM NEC 11/16/2016 MARS RAMIREZ N NANOFABRICATION SPECIALIST Ot 239.5 OTHER NEOPLASM NOS 11/16/2016 OMER RAMIREZCY N NANOFABRICATION SPECIALIST Ot 401.9 HYPERTENSION NOS 11/16/2016 MARS RAMIREZ N NANOFABRICATION SPECIALIST Ot 787.91 DIARRHEA 11/16/2016 MARS RAMIREZ N NANOFABRICATION SPECIALIST Ot V58.69 OT MED,LT,CURRENT USE 11/16/2016 GERTRUDIS CORTEZ, TONIA Ot V72.84 EXAM PRE-OPERATIVE NOS 11/16/2016 NILAM MCDONALD NANOFABRICATION SPECIALIST Ot M54.2 CERVICALGIA 12/10/2016 NILAM MCDONALD NANOFABRICATION SPECIALIST Ot M54.2 CERVICALGIA 12/10/2016 JENSEN CORTEZ, ANGEL [...] RESPIRATORY ABNORM NEC 12/10/2016 MARS RAMIREZ N NANOFABRICATION SPECIALIST Ot 239.5 OTHER NEOPLASM NOS 12/10/2016 MARS RAMIREZ N NANOFABRICATION SPECIALIST Ot 401.9 HYPERTENSION NOS 12/10/2016 MARS RAMIREZ NANOFABRICATION SPECIALIST Ot 787.91 DIARRHEA 12/10/2016 MARS RAMIREZ NANOFABRICATION SPECIALIST Ot V58.69 OTH MED,LT,CURRENT USE 12/10/2016 GERTRUDIS CORTEZ, TONIA Ot V72.84 EXAM PRE-OPERATIVE NOS 12/10/2016 NILAM MCDONALD Ot M54.2 CERVICALGIA 12/10/2016 ANGEL STYLES MD Ot M54.2 CERVICALGIA 12/10/2016 ANGEL STYLES MD Ot E11.9 TYPE 2 DIABETES MELLITUS WITHOUT COMPLIC 12/10/2016 ANGEL STYLES MD Ot M50.13 CERVICAL DISC DISORDER W RADICULOPATHY, 12/10/2016 ANGEL STYLES MD Ot Z79.899 OTHER INTERMEDIATE (CURRENT) DRUG THERAPY 12/16/2016 ANGEL STYLES MD [...] 07/12/2017 AISHWARYA LE DO Ot Z79.899 OTHER RN CLINICAL QUALITY (CURRENT) DRUG THERAPY 09/21/2017 ROXANA CORTEZ FAC, ALI FACP CCDS Ot 401.9 HYPERTENSION NOS 09/21/2017 ROXANA BRYSONC, ALI FACP CCDS Ot 427.89 CARDIAC DYSRHYTHMIAS NEC 09/21/2017 ROXANA BRYSONC, ALI FACP CCDS Ot 786.09 RESPIRATORY ABNORM NEC 09/21/2017 ROXANA CORTEZ FACC, ALI FACP CCDS Ot 427.89 CARDIAC DYSRHYTHMIAS NEC 09/21/2017 ROXANA CORTEZ FACC, ALI FACP CCDS Ot 786.09 RESPIRATORY ABNORM NEC 09/21/2017 MARS RAMIREZ NANOFABRICATION SPECIALIST Ot 239.5 OTHER NEOPLASM NOS 09/21/2017 MARS RAMIREZ NANOFABRICATION SPECIALIST Ot 401.9 HYPERTENSION NOS 09/21/2017 MARS RAMIREZ NANOFABRICATION SPECIALIST Ot 787.91 DIARRHEA 09/21/2017 MARS RAMIREZ NANOFABRICATION SPECIALIST Ot V58.69 OTH MED,LT,CURRENT USE 09/21/2017 GERTRUDIS CORTEZ, TONIA Ot V72.84 EXAM PRE-OPERATIVE NOS 09/21/2017 NILAM MCDONALD NANOFABRICATION SPECIALIST Ot M54.2 CERVICALGIA 09/21/2017 AISHWARYA LE DO Ot R19.7 DIARRHEA, UNSPECIFIED 09/21/2017 AISHWARYA LE DO Ot Z01.818 ENCOUNTER FOR OTHER PREPROCEDURAL EXAMIN 09/21/2017 AISHWARYA LE DO Ot R19.7 DIARRHEA, UNSPECIFIED 09/21/2017 AISHWARYA LE DO Ot Z01.818 ENCOUNTER FOR OTHER PREPROCEDURAL EXAMIN 09/21/2017 CLAUDINE CHRISTIANSON Ot E11.9 TYPE 2 DIABETES [...] RIGHT SIDE 09/21/2017 CLAUDINE CHRISTIANSON Ot Z79.82 RN CLINICAL QUALITY (CURRENT) USE OF ASPIRIN 09/21/2017 CLAUDINE CHRISTIANSON Ot Z79.84 INTERMEDIATE (CURRENT) USE OF ORAL HYPOGLYC 09/21/2017 CLAUDINE [...] CHRISTIANSON Ot 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, RIGHT SIDE 09/23/2017 CLAUDINE CHRISTIANSON Ot Z79.82 INTERMEDIATE (CURRENT) USE OF ASPIRIN 09/23/2017 CLAUDINE CHRISTIANSON Ot Z79.84 RN CLINICAL QUALITY (CURRENT) USE OF ORAL HYPOGLYC 09/23/2017 CLAUDINE CHRISTIANSON Ot Z90.49 ACQUIRED ABSENCE OF OTHER SPECIFIED PART 10/05/2017 MCDONALDNILAM BLACK NANOFABRICATION SPECIALIST Ot M54.2 CERVICALGIA 10/05/2017 LE DO, AISHWARYA [...] 786.09 RESPIRATORY ABNORM NEC 10/05/2017 MARS RAMIREZ NANOFABRICATION SPECIALIST Ot 239.5 OTHER NEOPLASM NOS 10/05/2017 MARS RAMIREZ N NANOFABRICATION SPECIALIST Ot 401.9 HYPERTENSION NOS 10/05/2017 MARS RAMIREZ NANOFABRICATION SPECIALIST Ot 787.91 DIARRHEA 10/05/2017 MARS RAMIREZ NANOFABRICATION SPECIALIST Ot V58.69 OTH MED,LT,CURRENT USE 10/05/2017 GERTRUDIS CORTEZ, TONIA Ot V72.84 EXAM PRE-OPERATIVE NOS 10/05/2017 NILAM MCDONALD NANOFABRICATION SPECIALIST Ot M54.2 CERVICALGIA 10/05/2017 LE DO, AISHWARYA D Ot R19.7 DIARRHEA, UNSPECIFIED 10/05/2017 LE DO, AISHWARYA D Ot Z01.818 ENCOUNTER FOR OTHER PREPROCEDURAL EXAMIN 10/05/2017 LE DO, AISHWARYA D Ot R19.7 DIARRHEA, UNSPECIFIED 10/05/2017 LE DO, AISHWARYA D Ot Z01.818 ENCOUNTER FOR OTHER PREPROCEDURAL EXAMIN 10/12/2017 ARTEMIO RAMIREZ APRN Ot M47.27 OTHER SPONDYLOSIS WITH RADICULOPATHY, PERICO 10/31/2017 ARTEMIO RAMIREZ MANAGER GAME Ot M47.27 OTHER SPONDYLOSIS WITH RADICULOPATHY, PERICO 11/07/2017 ARTEMIO RAMIREZ MANAGER GAME Ot M47.27 OTHER SPONDYLOSIS WITH RADICULOPATHY, PERICO 11/07/2017 ARTEMIO RAMIREZ MANAGER GAME Ot M47.27 OTHER SPONDYLOSIS WITH RADICULOPATHY, PERICO Procedures Code Description [place] [address] HEMOCCULT 01/30/2013 36495 ROUTINE VENIPUNCTURE 04/05/2013 96331 A1C (IN-HOUSE) 04/05/2013 83291 CBC 04/05/2013 21924 PSA TOTAL 04/05/2013 44077 TSH 04/05/2013 14272 LIPID PANEL 04/05/2013 45488 CMP 04/05/2013 5326861 GFR CALC (RESULT ONLY) 04/05/2013 86930 ROUTINE VENIPUNCTURE 07/17/2013 42487 VALPROIC ACID / DEPAKOTE 07/17/2013 S0390 ROUT FOOT CARE PER VISIT 09/06/2013 22305 EKG, TRACING (IN-HOUSE) 02/12/2014 CARDIOLOG NATHAN SCHMIDT 02/12/2014 48923 ROUTINE VENIPUNCTURE 02/12/2014 09786 CBC 02/12/2014 2981437 GFR CALC (RESULT ONLY) 02/12/2014 96256 CMP 02/12/2014 73415 LIPID PANEL 02/12/2014 30586 MAGNESIUM 02/12/2014 51862 PSA TOTAL 02/12/2014 77756 TSH 02/12/2014 77019 EKG, TRACING (IN-HOUSE) 04/10/2014 27364 OXIMETRY 04/10/2014 08477 ECHO 2D 04/30/2014 54349 NUCLEAR STRESS TESTING 05/13/2014 76068 OXIMETRY 05/23/2014 Podiatry Suzy Jean 05/23/2014 71362 A1C (IN-HOUSE) 09/03/2014 50874 CBC 10/18/2014 33498 TSH 10/18/2014 38507 CMP 10/18/2014 89542 LIPID PANEL 10/18/2014 1686651 GFR CALC (RESULT ONLY) 10/18/[address] CHEST W/DYE 10/21/[address] ABDOMEN W/ CONTRAST 10/21/2014 GENERAL S OLE CABA 10/21/2014 90978 ROUTINE VENIPUNCTURE 10/29/2014 38898 DEBRIDE NAIL >6 11/08/2014 Results Test Result [...] Urine-pH 7.0 5-8.5 Urine-Protein Negative Negative Urine-Specific Usk 1.010 1.000-1.030 Urine-WBC Negative Urobilinogen 0.2 E.U./dL [...] measurement by glucometer (mass/volume) 82 mg/dL 70-110 Capillary blood glucose measurement by glucometer (mass/volume) - 05/04/18 19: 50 Capillary blood glucose measurement by glucometer (mass/volume) 83 mg/dL 70-110 Arterial blood gas measurement - 05/04/18 20:10 Blood pCO2 46 mm[Hg] 35-45 Blood pO2 157 mm[Hg] 79-93 Arterial blood bicarbonate measurement (moles/volume) 20 mmol/L 23-27 Arterial blood base excess by calculation -5.8 mmol/L - 2.5-2.5 Arterial blood oxygen saturation measurement 99 % 94-100 * Inhaled oxygen flow rate 2L NC NRG Arterial blood pH measurement with patient temperature correction 7.26 7.37-7.43 Arterial blood carbon dioxide, total measurement (moles/volume) 21.4 mmol/L 21.0-31.0 Body site RIGHT RADIAL NRG Assessment of wrist artery patency prior to arterial puncture YES- POS NRG Setting of ventilation mode NO NRG Measurement of body temperature 99.0 NRG Encounters ACCT No. Visit Date/Time Discharge Status Pt. Type Provider Facility Loc./Unit Complaint [id number] 02/07/2015 09:33:00 02/07/2015 23:59:59 CLS Outpatient SUZY JEAN DPM [id number] 11/08/2014 09:29:00 11/08/2014 23:59:59 CLS Outpatient SUZY JEAN DPM [id number] 10/18/2014 07:34:00 10/18/2014 23:59:59 CLS Outpatient MARS TEAGUE APRN N [id number] 10/15/2014 07:37:00 10/15/2014 23:59:59 CLS Outpatient ROSY ETIENNE APRNMARS N [id number] 09/03/2014 09:57:00 09/03/2014 23:59:59 CLS Outpatient ROSY ETIENNE APRNMARS N [id number] 05/23/2014 08:39:00 05/23/2014 23:59:59 CLS Outpatient ROSY ETIENNE APRJerson MARS Jerson [id number] 04/10/2014 10:08:00 04/10/2014 23:59:59 CLS Outpatient SAHNI DO RODOLFO Jean [id number] 04/10/2014 10:08:00 04/10/2014 23:59:59 CLS Outpatient KAITLYN DO RODOLFO K [id number] 02/12/2014 09:06:00 02/12/2014 23:59:59 CLS Outpatient ROSY ETIENNE APRNMARS Jerson [id number] 09/06/2013 10:12:00 09/06/2013 23:59:59 CLS Outpatient ROSY ETIENNE APRJerson MARS Jerson [id number] 01/30/2013 10:52:00 01/30/2013 23:59:59 CLS Outpatient [id number] 07/17/2013 08:59:00 Document Registration [id number] 06/26/2013 11:56:00 Document Registration [id number] 04/05/2013 09:55:00 Document Registration [id number] 10/06/2017 16:13:00 10/06/2017 23:59:59 CLS Outpatient ARTEMIO RAMIREZ APRN [facility] RAD M54.17 BACK PAIN [id number] 09/21/2017 11:08:00 09/21/2017 14:38:00 DIS Emergency CLAUDINE CHRISTIANSON [facility] ER RT LEG PAIN [id number] 07/12/2017 09:33:00 07/12/2017 13:18:00 DIS Outpatient REY CORONA AISHWARYA D [facility] ENDO DIARRHEA [id number] 07/08/2017 05:53:00 07/08/2017 23:59:59 CLS Outpatient REY CORONA AISHWARYA D [facility] PREOP DIARRHEA [id number] 06/07/2017 10:45:00 06/07/2017 23:59:59 CLS Preadmit AMANDA LE DOTT D [facility] ENDO DIARRHEA [id number] 06/02/2017 06:51:00 06/02/2017 23:59:59 CLS Outpatient REY CORONAAISHWARYA [facility] PREOP DIARRHEA [id number] 03/22/2017 09:30:00 03/22/2017 23:59:59 CLS Preadmit ANGEL STYLES MD [facility] RAD M54.2 [id number] 12/09/2016 08:49:00 12/16/2016 10:01:00 DIS Outpatient ANGEL STYLES MD [facility] REHAB CERVICALGIA [id number] 12/10/2016 10:58:00 12/10/2016 11:41:00 DIS Outpatient ANGEL STYLES MD [facility] CARD M50.13 [id number] 07/20/2016 10:35:00 08/19/2016 14:56:00 DIS Outpatient NILAM MCDONALD [facility] REHAB NECK PAIN [id number] 07/23/2016 08:39:00 07/23/2016 09:28:00 DIS Outpatient ANGEL STYLES MD [facility] CARD DISC DISORDER [id number] 07/02/2016 11:23:00 07/02/2016 13:47:00 DIS Emergency MIKAELA LAM MD [facility] ER PSYCH EVAL [id number] 02/11/2016 13:22:00 02/11/2016 23:59:59 CLS Outpatient NILAM MCDONALD NANOFABRICATION SPECIALIST [facility] RAD NECK PAIN [id number] 11/06/2014 10:07:00 11/06/2014 13:35:00 DIS Outpatient TONIA CABA MD [facility] SDC DIARRHEA;SCREENING [id number] 11/05/2014 08:43:00 11/05/2014 23:59:59 CLS Outpatient TONIA CABA MD [facility] PREOP DIARRHEA;SCREENING [id number] 10/21/2014 13:32:00 10/21/2014 23:59:59 CLS Outpatient MARS RAMIREZ NANOFABRICATION SPECIALIST [facility] RAD DIARRHEA DISTICULAR NEOPLASM HIGH RISK MEDICATION [id number] 05/13/2014 11:14:00 05/13/2014 23:59:59 CLS Outpatient ROXANA CORTEZ FACC, ALI FACP CCDS [facility] CARD DYSPENA,HTN [id number] 04/30/2014 09:30:00 04/30/2014 23:59:59 CLS Outpatient ROXANA CORTEZ FACC, ALI FACP CCDS [facility] CARD DYSPENA,HTN [id number] 05/04/2018 18:21:00 Document Registration [id number] 05/19/2018 10:40:00 ACT Outpatient KYLE FINNEGAN [facility] [id number] 07/07/2017 12:20:00 07/07/2017 13:12:00 DIS Outpatient Rad Ramirez [id number] 06/30/2017 00:00:00 06/30/2017 10:28:00 DIS Outpatient GEORGINA KAUFMAN [id number] 06/24/2017 12:50:00 06/24/2017 23:59:00 DIS Outpatient GEORGINA KAUFMAN [id number] 06/29/2017 15:10:24 Document Registration [email or web address] 11/06/2014 10:53:55 ACT Document Registration [id number] 11/24/2016 07:05:00 Document Registration
[2018-05-04 21:50] VITALS: BP 85/50
[2018-05-04] MEDS: D5 1/2 NS 1000 ML IV SOLUTION 1,000 ML IV SCH (22:37)
[2018-05-04 22:50] VITALS: BP 102/49
[2018-05-05] VITALS (12 sets, daily range): BP systolic 94–170; BP diastolic 55–91
--- NOTE | 2018-05-05 06:10 | History & Physicial (CHS) ---
HPI History of Present Illness: Patient brought to [facility] for clinic appt for frequent falls, was noted to fall in the parking lot, obtaining laceration on forehead and knee abrasion. He was brought into the clinic, reported having a lot of dizziness; manual BP was reported to be 68/40 per M. Alysia ROSARIO after multiple checks, and pt was sent via EMS to ED for further evaluation. Pt reported to ED staff that he has been working outside all day and does not drink much - some soda and tea, and has not eaten today. Is a known diabetic. No urination all day today. Also reported some left shoulder and back pain; reports symptoms have been going on for the last several days. Noted to have acute renal failure and dehydration, rhabdo also secondary to dehydration; was admitted for hydration and monitoring. Source: RN/, RN notes reviewed, old records Exam Limitations: clinical condition Date seen by provider: May 05, 2018 Time Seen by Provider: 15:15 Attending Physician Marah Givens DO PCP Cristóbal Hatfield APRN Consult Date of Admission May 04, 2018 at 19:20 Home Medications Home Medications Reviewed patient Home Medication Reconciliation performed by pharmacy medication reconciliations biomass plant technician and/or nursing. Patients Allergies have been reviewed. Allergies Coded Allergies: NKANo Known Allergies (Verified Allergy, Unknown, 08/10/06) [id number] Hx Patient Social History Number of Children: 7 Living Status: lives independently Employed/Student: employed Alcohol Use: Rarely Uses Recreational Drug Use: Yes (POT) Smoking Status: Current Everyday Smoker Type Used: Cigarettes Recent Foreign Travel: No Contact w/other who traveled: No Recent Hopitalizations: No Recent Infectious Disease Expo: No Physical Abuse Screen: No Sexual Abuse: No Immunizations Up To Date Tetanus Booster (TDap): Unknown Past Medical History Testicular Cancer Type II Diabetes Arthritis HTN Depression Tobacco Abuse THC Abuse CAD of [place] Vessel Hyperlipidemia Cervical stenosis Parkinson's Disease Diabetic Neuropathy Chronic Pain Surgical Hx: Cholecystectomy Orchiectomy (r) Full Dental Extraction Appendectomy - 1968 Carpal Tunnel Release - 2016 Family Medical History Significant Family History: Heart Disease, CAD Over 55 Years Old, Diabetes, Hypertension Family History: Patient reports no known family medical history. Review of Systems ([facility]) Constitutional: see HPI, dizziness, weakness EENTM: no symptoms reported Respiratory: no symptoms reported Cardiovascular: no symptoms reported Gastrointestinal: no symptoms reported Genitourinary: decreased output Musculoskeletal: see HPI, muscle weakness Skin: see HPI, other (abrasions to right knee and forehead - both superficial in nature) Psychiatric/Neurological: Numbness, Tremors (Parkinson's Disease), Weakness Reviewed Test Results Reviewed Test Results Lab 05/04/18 18:10: Lactic Acid Level 1.32 Laboratory Tests Test 05/04/18 17:45 05/04/18 18:10 05/04/18 18:30 05/04/18 19:50 Range/Units White Blood Count 9.8 4.3-11.0 10^3/uL Red Blood Count 4.38 4.35-5.85 10^6/uL Hemoglobin 12.8 L 13.3-17.7 G/DL Hematocrit 36 L 40-54 % Mean Corpuscular Volume 83 80-99 FL Mean Corpuscular Hemoglobin 29 25-34 PG Mean Corpuscular Hemoglobin Concent 35 32-36 G/DL Red Cell Distribution Width 16.3 H 10.0-14.5 % Platelet Count 225 130-400 10^3/uL Mean Platelet Volume 11.0 H 7.4-10.4 FL Neutrophils (%) (Auto) 57 42-75 % Lymphocytes (%) (Auto) 27 12-44 % Monocytes (%) (Auto) 15 H 0-12 % Eosinophils (%) (Auto) 1 0-10 % Basophils (%) (Auto) 0 0-10 % Neutrophils # (Auto) 5.6 1.8-7.8 X 10^3 Lymphocytes # (Auto) 2.6 1.0-4.0 X 10^3 Monocytes # (Auto) 1.5 H 0.0-1.0 X 10^3 Eosinophils # (Auto) 0.1 0.0-0.3 10^3/uL Basophils # (Auto) 0.0 0.0-0.1 10^3/uL Prothrombin Time 13.7 12.2-14.7 SEC INR Comment 1.1 0.8-1.4 Activated Partial Thromboplast Time 26 24-35 SEC Sodium Level 137 135-145 MMOL/L Potassium Level 3.6 3.6-5.0 MMOL/L Chloride Level 107 98-107 MMOL/L Carbon Dioxide Level 20 L 21-32 MMOL/L Anion Gap 10 5-14 MMOL/L Blood Urea Nitrogen 65 H 7-18 MG/DL Creatinine 3.51 H 0.60-1.30 MG/DL Estimat Glomerular Filtration Rate 18 BUN/Creatinine Ratio 19 Glucose Level 90 70-105 MG/DL Calcium Level 8.2 L 8.5-10.1 MG/DL Magnesium Level 2.1 1.8-2.4 MG/DL Total Bilirubin 0.3 0.1-1.0 MG/DL Aspartate Amino Transf (AST/SGOT) 12 5-34 U/L Alanine Aminotransferase (ALT/SGPT) < 6 0-55 U/L Alkaline Phosphatase 57 40-136 U/L Total Creatine Kinase 190 30-200 U/L Creatine Kinase MB 7.3 *H <6.6 NG/ML Troponin I < 0.30 <0.30 NG/ML B-Type Natriuretic Peptide < 10.0 <100.0 PG/ML Total Protein 6.2 L 6.4-8.2 GM/DL Albumin 3.5 3.2-4.5 GM/DL Amylase Level 52 25-125 U/L Lipase 28 8-78 U/L TSH [place] Testing 0.78 0.35-4.94 UIU/ML Acetaminophen Level < 10 L 10-30 UG/ML Serum Alcohol < 10 <10 MG/DL Lactic Acid Level 1.32 0.50-2.00 MMOL/L Glucometer 82 83 70-110 MG/DL Test 05/04/18 20:10 05/05/18 05:18 Range/Units Blood Gas Puncture Site RIGHT RADIAL Blood Gas Patient Temperature 99.0 Arterial Blood pH 7.26 *L 7.37-7.43 Arterial Blood Partial Pressure CO2 46 H 35-45 MMHG Arterial Blood Partial Pressure O2 157 H 79-93 MMHG Arterial Blood HCO3 20 L 23-27 MMOL/L Arterial Blood Total CO2 21.4 21.0-31.0 MMOL/L Arterial Blood Oxygen Saturation 99 94-100 % Arterial Blood Base Excess -5.8 L -2.5-2.5 MMOL/L Kali Test YES-POS Blood Gas Ventilator Setting NO Blood Gas Inspired Oxygen 2L NC Radiology Date of Exam: 05/04/18 CT HEAD/FACE/CERVICAL WO PROCEDURE: CT head, face, and cervical spine without contrast. TECHNIQUE: Multiple contiguous axial images were obtained through the head, neck, and facial bones without the use of intravenous contrast. Sagittal and coronal reformations through the cervical spine and facial bones were also performed. INDICATION: Injury to head, face, and neck, syncope with fall. COMPARISON: MRI of the cervical spine from 02/11/2016. FINDINGS: CT head: The ventricles and cortical sulci are diffusely prominent. There is no midline shift or mass effect. Calcific atherosclerosis is present. No acute intracranial hemorrhage is seen. No CT evidence of acute territorial ischemia is identified. The calvarium appears intact. CT face: The pterygoid plates and zygomatic arches are intact. The mandible appears intact. Motion artifact is present. The maxillary sinuses and orbits appear intact. Mucus retention cysts are noted in the right maxillary sinus. The globes appear intact. There is soft tissue edema overlying the left mandible. CT cervical spine: There is motion artifact on multiple images. This results in suboptimal evaluation. No acute fracture is seen. There is grade 1 anterolisthesis at C3-C4 and C4-C5. Advanced degenerative changes are seen at C5-C6 and C6-C7, resulting in spinal canal stenosis at those levels. There is multilevel foraminal stenosis as well. No bony fragments or hyperdense fluid collections are seen in the spinal canal. There is a prominent right thyroid lobe. IMPRESSION: 1. No acute intracranial hemorrhage, calvarium fracture, or CT evidence of acute territorial ischemia seen. 2. Generalized parenchymal volume loss. 3. No acute facial fracture seen. 4. Motion artifact in the cervical spine with no acute fracture seen. There are multilevel degenerative changes and spondylolisthesis. There is spinal canal stenosis at C5-C6 and C6-C7. PELVIS INDICATION: Syncope. EXAMINATION: Pelvis, 05/04/2018. FINDINGS: No fracture or dislocation appreciated. There is hyperdensity along the right superior femoral head, which is nonspecific but could represent a focus of AVN. This has a fairly chronic appearance. No collapse of the adjacent femoral head is seen. IMPRESSION: 1. Chronic changes in the right hip. No fractures appreciated at this time, but if there is persistent pain or patient cannot bear weight, MRI recommended. Date of Exam: 05/04/18 CHEST 1 VIEW, AP/PA ONLY PATIENT HISTORY: Syncope, fall. TECHNIQUE: Single frontal view of the chest. COMPARISON: 09/19/2007. FINDINGS: Lung volumes are mildly low. There are perihilar interstitial opacities which may represent central vascular congestion or may be due to crowding from low lung volumes. The cardiac silhouette appears mildly prominent, likely related to technique. No pleural effusion or pneumothorax is seen. No acute osseous abnormality is seen. IMPRESSION: Findings of mild cardiomegaly and mild central vascular congestion, maybe accentuated by low lung volumes. Physical Exam-([facility]) Physical Exam Vital Signs VS - Last 72 Hours, by Label 05/04/18 05/04/18 05/04/18 05/04/18 17:45 20:35 20:50 21:33 Temp 97.4 95.8 Pulse 50 54 55 Resp 18 12 14 B/P (MAP) 80/50 (60) 120/74 98/45 (62) Pulse Ox 99 100 99 O2 Delivery Nasal Cannula Nasal Cannula Room Air O2 Flow Rate 2.00 2.00 05/04/18 05/04/18 05/05/18 05/05/18 21:50 22:50 00:00 00:49 Temp 95.5 95.6 97.5 Pulse 52 54 49 52 Resp 16 14 16 B/P (MAP) 85/50 (62) 102/49 (66) 107/73 (84) Pulse Ox 99 100 100 O2 Delivery Nasal Cannula Nasal Cannula Nasal Cannula O2 Flow Rate 2.00 2.00 2.00 05/05/18 05/05/18 05/05/18 05/05/18 01:00 01:50 02:50 03:50 Temp 97.2 97.0 97.1 Pulse 49 55 62 59 Resp 18 18 18 B/P (MAP) 99/55 (70) 117/62 (80) 94/56 (69) Pulse Ox 100 96 99 O2 Delivery Nasal Cannula Nasal Cannula Nasal Cannula O2 Flow Rate 2.00 2.00 2.00 05/05/18 05/05/18 05/05/18 05/05/18 04:50 05:50 06:48 07:00 Temp 97.3 97.3 97.5 Pulse 54 53 59 52 Resp 18 18 18 B/P (MAP) 99/56 (70) 104/58 (73) 101/66 (78) Pulse Ox 99 100 100 O2 Delivery Nasal Cannula Nasal Cannula Nasal Cannula O2 Flow Rate 2.00 2.00 2.00 05/05/18 05/05/18 05/05/18 05/05/18 08:00 09:15 12:00 13:00 Temp 97.8 96.8 97.5 Pulse 63 60 67 66 Resp 20 22 20 B/P (MAP) 118/91 (100) 115/73 (87) 128/65 (86) Pulse Ox 100 99 94 O2 Delivery Nasal Cannula Room Air Room Air O2 Flow Rate 2.00 05/05/18 05/05/1818 18 16:00 19:00 19:25 00:23 Temp 98.0 98.0 97.9 Pulse 61 65 61 53 Resp 20 18 16 B/P (MAP) 131/81 (98) 170/72 (104) 154/82 (106) Pulse Ox 99 97 97 O2 Delivery Room Air Room Air Room Air 05/06/18 05/06/18 01:00 04:24 Temp 97.6 Pulse 48 58 Resp 18 B/P (MAP) 142/66 (91) Pulse Ox 98 O2 Delivery Room Air Capillary Refill : Less Than 3 Seconds General Appearance: WD/WN, no apparent distress Eyes: Bilateral Eye Normal Inspection, Bilateral Eye EOMI, Bilateral Eye Photophobia (mild) HEENT: No pale conjunctivae (R), No pale conjunctivae (L), No photophobia; other (rhythmic tongue movement, likely secondary to Parkinson's Disease) Neck: non-tender, full range of motion, supple, normal inspection Respiratory: chest non-tender, normal breath sounds, no respiratory distress, no accessory muscle use Cardiovascular: regular rate, rhythm, no gallop Peripheral Pulses: 2+ Radial Pulses (R), 2+ Radial Pulses (L) Gastrointestinal: normal bowel sounds, non tender, soft, no organomegaly, no pulsatile mass; No distended, No guarding Rectal: deferred Extremities: normal range of motion, non-tender, no calf tenderness, normal capillary refill, swelling (mild left knee swelling) Neurologic/Psychiatric: instrument specialist II-XII nml as tested, alert, normal mood/affect, oriented x 3, sensory deficit (reports decreased sensation in bilateral feet/ legs), other (bilateral tremor, secondary to Parkinson's Disease) Skin: warm/dry, other (superficial abraision to upper outer aspect of right knee, small abraision over right eyebrow), pallor Assessment/Plan Assessment/Plan Admission Dx Fall from level surface due to tripping, slipping with striking object Dehydration Acute Renal Failure Parkinson's Disease Type II Diabetes with Complication Tobacco Abuse COPD based on initial exam and history Weakness Nasal Fracture Hx of Testicular Cancer HTN Hyperlipidemia Arthritis Depression Chronic Pain Admission Status: Inpatient Order (span 2 midnights) Reason for Inpatient Admission: treatment and stablization of admission conditions (1) Fall on same level from slipping, tripping and stumbling with subsequent striking against other object, initial encounter Status: Acute Assessment & Plan: 05.05 -fall yesterday, will have pt work with PT today to evaluate safety and gait -suspect secondary to acute renal failure, diabetic neuropathy, dehydration, Parkinson's Disease and THC abuse (2) Weakness Status: Acute Assessment & Plan: 05/05 -suspect secondary to dehydration and acute renal failure; will have PT see patient and evaluate -see notes above for additional details (3) Parkinson disease Status: Chronic Assessment & Plan: 05/05 -per clinic records, on Sinemet, which patient confirms -pt reports tremor at baseline, that he smokes THC to help keep the tremors to a minimum. (4) Acute renal failure Status: Acute Assessment & Plan: 05/05 -last known baseline was Cr 0.79 in Nov 2016 -Cr 3.51 --> 1.65 -GFR 18 --> 42 -pt diabetic, dehydrated and on NSAIDS -stop NSAIDS, hydration, will monitor closely -will stop all nephrotoxic medications -fluid boluses and will recheck labs in AM -suspect that rhabdomyolysis secondary to dehydration is also a contributing factor to this Qualifiers: Qualified Codes: N17.9 - Acute kidney failure, unspecified (5) Type II diabetes mellitus with complication Status: Chronic Assessment & Plan: 05/05 -compliance somewhat questionable, clinic records do not indicate reliable follow up -HgbA1C in Aug 2017 5.7, will check again with next lab draw -sliding scale in the hospital -discussed with pt importance of compliance with diabetic diet, medications, etc Qualifiers: Qualified Codes: E11.8 - Type 2 diabetes mellitus with unspecified complications (6) Chronic pain Status: Chronic Assessment & Plan: 05/05 -cervical stenosis -chronic back pain -tramadol and Mobic at home; will continue with non-nephrotoxic medications in hospital Qualifiers: Qualified Codes: G89.29 - Other chronic pain (7) Dehydration Status: Acute Assessment & Plan: 05/05 -aggressive rehydration and monitor labs -fluid bolus given overnight in the ED -pt given 2L this AM, will bolus with another 2L this afternoon -recheck labs in AM (8) Rhabdomyolysis Status: Acute Assessment & Plan: 05/05 -pt with CKMB 7.3, now down to 5.8 with hydration -Myoglobin elevated at 103.3 -will continue hydration and repeat in AM -suspect secondary to dehydration; improving with IVF boluses -also suspect that this was a contributor to acute renal failure Qualifiers: Qualified Codes: M62.82 - Rhabdomyolysis (9) CAD (coronary artery disease), [place] coronary artery Status: Chronic Assessment & Plan: 05/05 -no chest pain or pressure, no shortness of breath with fluid boluses Qualifiers: Qualified Codes: I25.10 - Atherosclerotic heart disease of [place] coronary artery without angina pectoris (10) HTN (hypertension) Status: Chronic Assessment & Plan: 05/05 -home lisinopril on hold while ARF -will monitor; pt initially hypotensive -at time of exam blood pressure WNL, pt home blood pressure medication still on hold -pt reports still feeling a little light headed and dizzy Qualifiers: Qualified Codes: I15.2 - Hypertension secondary to endocrine disorders (11) Depression Status: Chronic Assessment & Plan: 05/05 -resume home medications Qualifiers: Qualified Codes: F33.9 - Major depressive disorder, recurrent, unspecified (12) Tobacco abuse Status: Chronic Assessment & Plan: Cessation encouraged (13) Marijuana smoker Status: Chronic Assessment & Plan: 05/05 -Cessation encouraged -asked patient about THC use, as UDS positive for that, pt freely admits to using THC to help control his significant tremors from his Parkinson's Disease (14) Hx of testicular cancer Status: Chronic Assessment & Plan: s/p r orchiectomy (15) Anxiety Status: Chronic Assessment & Plan: 05/05 -will resume home meds (16) Positive urine drug screen Status: Acute Assessment & Plan: 05/05 -Pt with admitted THC use to help control his tremors from Parkinson's, which are significant -discussed with pt that his urine was also positive for amphetamines and methamphetamines; pt reports he has never done anything like this and the only drug he ever uses is the pot as mentioned above, which he freely admits to -given pt's significant tremor, and difficulty with fine motor control secondary to his Parkinson's Disease, it is certainly reasonable to consider that whoever has given him the THC and rolled it for smoking by patient could have either laced it with amphetamines/methamphetamines, or could have had some type of cross contamination; pt very honest and open about his other drug use, and am inclined to believe that he does not purposefully use the amphetamine/ methamphetamines that were in UDS; repeat UDS in office at random could confirm this; no way to prove for certain, but in speaking with patient, theory does seem possible (17) Hypocalcemia Status: Acute Assessment & Plan: 05/05 Ca 8.2 --> 8.3 Recheck in AM (18) Hypoproteinemia Assessment & Plan: 05/05 -total protein 6.2 --> 5.9 -suspect this may be chronic for patient -consider prealbumin to assess for protein calorie malnutrition (19) Hyperchloremia Status: Acute Assessment & Plan: 05/05 -Cl 109 this am -suspect due to IVF boluses with NS -recheck labs in AM (20) Anemia Assessment & Plan: 05/05 -12.8 on admission, now 12.9 -suspect this is likely baseline for patient and secondary to chronic disease, but further workup would be needed to see if this is the case -given Hgb >12, find pt's dizziness unlikely to be secondary to his mild anemia Qualifiers: Qualified Codes: D64.9 - Anemia, unspecified (21) DVT prophylaxis Status: Acute Assessment & Plan: 05/05 -Lovenox with renal dosing while hospitalized -ambulate with assistance when able -may need to consider heparin due to ARF Clinical Quality Measures DVT/VTE Risk/Contraindication: Risk Factor Score Per Nursin RFS Level Per Nursing on Admit: 3=High Copy Copies To 1: [facility]/MARAH TOURE DO May 05, 2018 06:10
[2018-05-05 06:16] LABS: BASOPHILS % (AUTO) 0 % (0-10); EOSINOPHILS # (AUTO) 0.2 10^3/uL (0.0-0.3); EOSINOPHILS % (AUTO) 2 % (0-10); HEMATOCRIT 38 % (40-54); HEMOGLOBIN 12.9 G/DL (13.3-17.7); LYMPHOCYTES # (AUTO) 2.3 X 10^3 (1.0-4.0); LYMPHOCYTES % (AUTO) 25 % (12-44); MEAN CORPUSCULAR HEMOGLOBIN 28 PG (25-34); MEAN CORPUSCULAR HGB CONC 34 G/DL (32-36); MEAN CORPUSCULAR VOLUME 84 FL (80-99); MEAN PLATELET VOLUME 10.8 FL (7.4-10.4); MONOCYTES # (AUTO) 1.1 X 10^3 (0.0-1.0); MONOCYTES % (AUTO) 12 % (0-12); NEUTROPHILS # (AUTO) 5.4 X 10^3 (1.8-7.8); NEUTROPHILS % (AUTO) 60 % (42-75); PLATELET COUNT 211 10^3/uL (130-400); RED BLOOD COUNT 4.59 10^6/uL (4.35-5.85); RED CELL DISTRIBUTION WIDTH 16.5 % (10.0-14.5)
[2018-05-05 06:39] LABS: ALBUMIN 3.4 GM/DL (3.2-4.5); BILIRUBIN,TOTAL 0.4 MG/DL (0.1-1.0); CALCIUM 8.3 MG/DL (8.5-10.1); CREATININE SERUM 1.65 MG/DL (0.60-1.30); POTASSIUM 3.8 MMOL/L (3.6-5.0); TOTAL PROTEIN 5.9 GM/DL (6.4-8.2)
[2018-05-05] MEDS ORDERED: ENOXAPARIN 30 MG/0.3 ML (LOVENOX) SYR SC SCH (06:45)
[2018-05-05 06:53] LABS: BILIRUBIN,URINE NEGATIVE (NEGATIVE); CLARITY,URINE CLEAR; COLOR,URINE YELLOW; GLUCOSE, URINE (UA) NEGATIVE (NEGATIVE); KETONES,URINE NEGATIVE (NEGATIVE); LEUKOCYTE ESTERASE ,URINE 1+ (NEGATIVE); NITRITE,URINE NEGATIVE (NEGATIVE); PH,URINE 6 (5-9); PROTEIN,URINE NEGATIVE (NEGATIVE); UROBILINOGEN,URINE NORMAL (NORMAL)
[2018-05-05 06:57] LABS: MAGNESIUM 2.3 MG/DL (1.8-2.4); PHOSPHORUS 3.9 MG/DL (2.3-4.7)
[2018-05-05] MEDS: NS IV 1000 ML 1,000 ML IV SCH ×4 (07:02→16:43)
[2018-05-05 07:07] LABS: CREATINE KINASE MB 5.8 NG/ML (<6.6); MYOGLOBIN SERUM 103.3 NG/ML (10.0-92.0)
[2018-05-05 07:15] LABS: BACTERIA,URINE NEGATIVE /HPF; WBC,URINE 0-2 /HPF
[2018-05-05] MEDS: D5 1/2 NS 1000 ML IV SOLUTION 1,000 ML IV SCH (07:33)
--- NOTE | 2018-05-05 08:08 | Diagnostic Imaging Report ---
Indication: Dehydration. Comparison made with prior examination of 05/04/2018. Findings: The heart size is upper limits of normal. Lungs are clear. There appears to be a small left pleural effusion. No pneumothorax. Mediastinum is unremarkable. Impression: Small left pleural effusion. Upper limits of normal size heart. Dictated by: Dictated on workstation # [id number]
[2018-05-05 08:50] LABS: AMPHETAMINE SCREEN, URINE POSITIVE (NEGATIVE); BARBITURATE SCREEN URINE NEGATIVE (NEGATIVE); BENZODIAZEPINES SCREEN URINE POSITIVE (NEGATIVE); CANNABINOID SCREEN, URINE POSITIVE (NEGATIVE); COCAINE SCREEN URINE NEGATIVE (NEGATIVE); METHADONE STAT NEGATIVE (NEGATIVE); METHAMPHETAMINE SCREEN URINE S POSITIVE (NEGATIVE); OPIATE SCREEN URINE NEGATIVE (NEGATIVE); OXYCODONE STAT NEGATIVE (NEGATIVE); PROPOXYPHENE STAT NEGATIVE (NEGATIVE); TRICYCLIC ANTIDEPRESSANTS SCRE NEGATIVE (NEGATIVE)
[2018-05-05] MEDS: 1/2 NS IV SOLUTION 1,000 ML IV SCH (08:55)
--- NOTE | 2018-05-05 09:38 | Physical Therapy Evaluation ---
PT Evaluation-General Medical Diagnosis Admission Date May 04, 2018 at 19:20 Medical Diagnosis: dehydration and ARG Onset Date: May 04, 2018 Therapy Diagnosis Therapy Diagnosis: impaired mobility, strength, endurance Height/Weight Height (Feet): 5 Height (Inches): 6.00 Weight (Pounds): 159 Weight (Ounces): 9.0 Precautions Precautions/Isolations: Fall Prevention, Standard Precautions Referral Physician: Marah Givens DO Reason for Referral: Evaluation/Treatment Medical History Additional Medical History Past Medical History Testicular Cancer Type II Diabetes Arthritis HTN Depression Tobacco Abuse THC Abuse CAD of [place] Vessel Hyperlipidemia Cervical stenosis Parkinson's Disease Diabetic Neuropathy Chronic Pain Surgical Hx: Cholecystectomy Orchiectomy (r) Full Dental Extraction Appendectomy - 1968 Carpal Tunnel Release - 2016 Current History patient has been having falls recently, went to the clinic and then to ER Reviewed History: Yes Social History Home: Apartment Current Living Status: Alone Entry Into Home: Level Entry Prior/Core FIM Prior Level of Function Functional [place] Measure 0=Not Assessed/NA 4=Minimal Assistance 1=Total Assistance 5=Supervision or Setup 2=Maximal Assistance 6=Modified [place] 3=Moderate Assistance 7=Complete [place] Bed Mobility: 7 Transfers (B,C,W/C) (FIM): 7 Gait: 7 PT Evaluation-Current Subjective Patient in bed pre tx, agrees to PT, has pain of 7/10 in right knee. He has some abrasions there from falling. Pt/Family Goals "to get better and go home" Objective Patient Orientation: Person, Place, Situation Attachments: IV ROM/Strength ROM Lower Extremities WNL Strength Lower Extremities right lower extremity (hip flexion 4/5, knee flexion 4/5, knee extension 4/5, dorsiflexion 4/5), left lower extremity (hip flexion 4/5, knee flexion 4+/5, knee extension 4+/5, dorsiflexion 4+/5) Neuromuscular (Tone, Coordination, Reflexes) Patient has good peripheral vision but questionable tracking. Sensory Hearing: Functional Sensation Right Lower Extremit: Intact Sensation Left Lower Extremity: Intact Transfers Functional [place] Measure 0=Not Assessed/NA 4=Minimal Assistance 1=Total Assistance 5=Supervision or Setup 2=Maximal Assistance 6=Modified [place] 3=Moderate Assistance 7=Complete [place] Transfers (B, C, W/C) (FIM): 5 Scootin Rollin Supine to/from Sit: 5 Sit to/from Stand: 5 bed t/f WC(FIM only if WC use): 5 Patient had some slight light headedness immediately upon standing but it resolved quickly. Gait Mode of Locomotion: Walk Anticipated Mode of Locomotion: Walk Gait (FIM): 5 Distance: 150' Gait Level of Assist: 5 Gait Persons Needed: 1 Gait Assistive Device: FWW Comments/Gait Description Patient ambulated slowly and stated that he had persistent slight light headedness but it didn't get any worse. Balance Sitting Static: Normal Sitting Dynamic: Normal Standing Static: Fair Standing Dynamic: Fair Treatment supine exercises LE x15 (AP, HS, SLR) Assessment/Needs Patient has slight right lower extremity weakness and some light headedness with mobility. Rehab Potential: Fair PT Short Term Goals Short Term Goals Time Frame: May 12, 2018 Transfers (B,C,W/C) (FIM): 6 Gait (FIM): 6 Gait Distance Comment: 200' Gait Assistive Device: FWW PT Plan Problem List Problem List: Activity Tolerance, Functional Strength, Safety, Balance, Gait, Transfer Treatment/Plan Treatment Plan: Continue Plan of Care Treatment Plan: Bed Mobility, Education, Functional Activity Dick, Functional Strength, Gait, Safety, Therapeutic Exercise, Transfers Treatment Duration: May 12, 2018 Frequency: 6 times per week Estimated Hrs Per Day: .25 hour per day (15-30') Patient and/or Family Agrees t: Yes Safety Risks/Education Patient Education: Gait Training, Transfer Techniques, Correct Positioning, Safety Issues Teaching Recipient: Patient Teaching Methods: Demonstration, Discussion Response to Teaching: Reinforcement Needed Discharge Recommendations Plan Patient will perform bed mobility and transfer training, balance and endurance training, functional strengthening, stair training, gait training, and education , to improve functional mobility and independence at home. Therapy D/C Recommendations: Home w/ Family Support Time/GCodes Time In: 914 Time Out: 929 Total Billed Treatment Time: 15 Total Billed Treatment 1 visit GABY 15' CASA MORENO PT May 05, 2018 09:38
[2018-05-05] MEDS ORDERED: ESCI20TA45 PO (09:58)
[2018-05-05] MEDS ORDERED: METF500T8 PO (09:58)
[2018-05-05] MEDS ORDERED: BACL10TA PO (09:58)
[2018-05-05] MEDS ORDERED: TRAZ100T92 PO (09:58)
[2018-05-05] MEDS ORDERED: ARIP15TA9 PO (09:58)
[2018-05-05] MEDS ORDERED: CARB1TAB17 PO (09:58)
[2018-05-05] MEDS: inSUlin ASPART (NovoLOG) 1 UNIT/0.01 ML (CHARGE PER UNIT) SC SCH ×3 (12:16→21:00)
[2018-05-05] MEDS ORDERED: [UNRECOGNIZED DRUG - OTHER] PO SCH (21:00)
[2018-05-05] MEDS: SINEMET 10/100 (CARBIDOPA/LEVADOPA) TAB PO SCH (21:00)
[2018-05-05] MEDS ORDERED: traZODone 100 MG (DESYREL) TAB PO SCH (21:00)
[2018-05-05] MEDS ORDERED: CARBIDOPA PO SCH (21:00)
[2018-05-05] MEDS ORDERED: LEVODOPA PO SCH (21:00)
[2018-05-05] MEDS ORDERED: SIMvastatin 40 MG (ZOCOR) TAB PO SCH (21:00)
[2018-05-05] MEDS: GABAPENTIN 300 MG (NEURONTIN) CAP PO SCH (22:43)
[2018-05-05] MEDS: CARVEDILOL 6.25 MG (COREG) TAB PO SCH (22:43)
[2018-05-05] MEDS: BACLOFEN 10 MG (LIORESAL) TAB PO SCH (22:44)
[2018-05-06 00:23] VITALS: BP 154/82
[2018-05-06 04:10] LABS: BASOPHILS % (AUTO) 0 % (0-10); EOSINOPHILS # (AUTO) 0.2 10^3/uL (0.0-0.3); EOSINOPHILS % (AUTO) 4 % (0-10); HEMATOCRIT 33 % (40-54); HEMOGLOBIN 11.5 G/DL (13.3-17.7); LYMPHOCYTES # (AUTO) 2.2 X 10^3 (1.0-4.0); LYMPHOCYTES % (AUTO) 38 % (12-44); MEAN CORPUSCULAR HEMOGLOBIN 29 PG (25-34); MEAN CORPUSCULAR HGB CONC 35 G/DL (32-36); MEAN CORPUSCULAR VOLUME 84 FL (80-99); MEAN PLATELET VOLUME 10.5 FL (7.4-10.4); MONOCYTES # (AUTO) 0.8 X 10^3 (0.0-1.0); MONOCYTES % (AUTO) 13 % (0-12); NEUTROPHILS # (AUTO) 2.6 X 10^3 (1.8-7.8); NEUTROPHILS % (AUTO) 45 % (42-75); PLATELET COUNT 177 10^3/uL (130-400); RED BLOOD COUNT 3.98 10^6/uL (4.35-5.85); RED CELL DISTRIBUTION WIDTH 15.9 % (10.0-14.5); WHITE BLOOD COUNT 5.9 10^3/uL (4.3-11.0)
[2018-05-06 04:24] VITALS: BP 142/66
[2018-05-06 04:28] LABS: BUN/CREATININE RATIO 26; CALCIUM 8.3 MG/DL (8.5-10.1); CARBON DIOXIDE 21 MMOL/L (21-32); CHLORIDE 115 MMOL/L (98-107); CREATINE KINASE 64 U/L (30-200); GFR ESTIMATED > 60; GLUCOSE 92 MG/DL (70-105); POTASSIUM 4.1 MMOL/L (3.6-5.0); SODIUM 143 MMOL/L (135-145)
[2018-05-06 04:36] LABS: CREATINE KINASE MB 2.5 NG/ML (<6.6); MYOGLOBIN SERUM 39.6 NG/ML (10.0-92.0)
[2018-05-06] MEDS: 1/2 NS IV SOLUTION 1,000 ML IV SCH (05:00)
[2018-05-06] MEDS: inSUlin ASPART (NovoLOG) 1 UNIT/0.01 ML (CHARGE PER UNIT) SC SCH ×2 (06:06→12:31)
[2018-05-06] MEDS ORDERED: ENOXAPARIN 40 MG/0.4 ML (LOVENOX) SYR SC SCH (06:45)
[2018-05-06 08:59] VITALS: BP 163/83
[2018-05-06] MEDS ORDERED: NON-FORMULARY MEDICATION 1 EA EA (Escitalopram Oxalate 20 MG) PO SCH (09:00)
[2018-05-06] MEDS ORDERED: ARIPIPRAZOLE 15 MG (ABILIFY) TAB PO SCH (09:00)
[2018-05-06] MEDS ORDERED: ARIPIPRAZOLE 15 MG PO SCH (09:00)
[2018-05-06] MEDS: SINEMET 10/100 (CARBIDOPA/LEVADOPA) TAB PO SCH (09:59)
[2018-05-06] MEDS: CARVEDILOL 6.25 MG (COREG) TAB PO SCH (09:59)
[2018-05-06] MEDS: BACLOFEN 10 MG (LIORESAL) TAB PO SCH (09:59)
[2018-05-06] MEDS: GABAPENTIN 300 MG (NEURONTIN) CAP PO SCH (09:59)
--- NOTE | 2018-05-06 10:10 | Physical Therapy Progress Note ---
Therapy Progress Note Pt in bed, declined to participate with PT stating he is getting ready to discharge later this date. ROSALIE PACK DPT May 06, 2018 10:10
--- NOTE | 2018-05-06 10:43 | Discharge Instructions ---
Discharge [facility] Discharge Medications Continued Medications: Aripiprazole (Aripiprazole) 15 Mg Tablet 15 MG PO DAILY, TAB Baclofen (Baclofen) 10 Mg Tablet 10 MG PO TID, TAB Carbidopa/Levodopa (Carbidopa-Levodopa 10-100 Tab) 1 Each Tablet 1 TAB PO TID, TAB Carvedilol (Carvedilol) 6.25 Mg Tablet 6.25 MG PO BID, TAB Escitalopram Oxalate (Escitalopram Oxalate) 20 Mg Tablet 20 MG PO DAILY, TAB Gabapentin (Gabapentin) 300 Mg Capsule 300 MG PO TID, CAP Lisinopril (Lisinopril) 20 Mg Tablet 20 MG PO DAILY, TAB Metformin HCl (Metformin HCl ER) 500 Mg Tab.er.24h 500 MG PO BID WITH MEALS, TAB Simvastatin (Simvastatin) 40 Mg Tablet 40 MG PO HS, TAB Trazodone HCl (Trazodone HCl) 100 Mg Tablet 200 MG PO HS, TAB TAKES 2 (100MG) TABLETS Discontinued Medications: Meloxicam (Meloxicam) 7.5 Mg Tablet 7.5 MG PO BID, TAB Patient Instructions Goal/Follow Up Appt: LORENA Hatfield 05/11/18 at1 pm Activity & Diet Discharge Diet: ADA Diet Orders-Post D/C & Referrals Pneu Vac Indicated: Yes RODOLFO SAHNI DO May 06, 2018 10:43
--- NOTE | 2018-05-06 10:49 | Discharge Summary ---
Diagnosis/Chief Complaint Date of Admission May 04, 2018 at 19:20 Date of Discharge May 06, 2018 Admission Diagnosis Admission Diagnosis Fall from level surface due to tripping, slipping with striking object Dehydration Acute Renal Failure Parkinson's Disease Type II Diabetes with Complication Tobacco Abuse COPD based on initial exam and history Weakness Nasal Fracture Hx of Testicular Cancer HTN Hyperlipidemia Arthritis Depression Chronic Pain Discharge Diagnosis (1) Fall on same level from slipping, tripping and stumbling with subsequent striking against other object, initial encounter Status: Acute Assessment & Plan: 05.05 -fall yesterday, will have pt work with PT today to evaluate safety and gait -suspect secondary to acute renal failure, diabetic neuropathy, dehydration, Parkinson's Disease and THC abuse (2) Weakness Status: Acute Assessment & Plan: 05/05 -suspect secondary to dehydration and acute renal failure; will have PT see patient and evaluate -see notes above for additional details (3) Parkinson disease Status: Chronic Assessment & Plan: 05/05 -per clinic records, on Sinemet, which patient confirms -pt reports tremor at baseline, that he smokes THC to help keep the tremors to a minimum. (4) Acute renal failure Status: Acute Assessment & Plan: 05/05 -last known baseline was Cr 0.79 in Nov 2016 -Cr 3.51 --> 1.65 -GFR 18 --> 42 -pt diabetic, dehydrated and on NSAIDS -stop NSAIDS, hydration, will monitor closely -will stop all nephrotoxic medications -fluid boluses and will recheck labs in AM -suspect that rhabdomyolysis secondary to dehydration is also a contributing factor to this 05/06/18 - Cr. normalized at 0.70; Recommend not restarting Mobic; will restart Metformin as OP but will need monitoring Qualifiers: Qualified Codes: N17.9 - Acute kidney failure, unspecified (5) Type II diabetes mellitus with complication Status: Chronic Assessment & Plan: 05/05 -compliance somewhat questionable, clinic records do not indicate reliable follow up -HgbA1C in Aug 2017 5.7, will check again with next lab draw -sliding scale in the hospital -discussed with pt importance of compliance with diabetic diet, medications, etc Qualifiers: Qualified Codes: E11.8 - Type 2 diabetes mellitus with unspecified complications (6) Chronic pain Status: Chronic Assessment & Plan: 05/05 -cervical stenosis -chronic back pain -tramadol and Mobic at home; will continue with non-nephrotoxic medications in hospital Qualifiers: Qualified Codes: G89.29 - Other chronic pain (7) Dehydration Status: Acute Assessment & Plan: 05/05 -aggressive rehydration and monitor labs -fluid bolus given overnight in the ED -pt given 2L this AM, will bolus with another 2L this afternoon -recheck labs in AM RESOLVED (8) Rhabdomyolysis Status: Acute Assessment & Plan: 05/05 -pt with CKMB 7.3, now down to 5.8 with hydration -Myoglobin elevated at 103.3 -will continue hydration and repeat in AM -suspect secondary to dehydration; improving with IVF boluses -also suspect that this was a contributor to acute renal failure 05/06/18 - RESOLVED Qualifiers: Qualified Codes: M62.82 - Rhabdomyolysis (9) CAD (coronary artery disease), [place] coronary artery Status: Chronic Assessment & Plan: 05/05 -no chest pain or pressure, no shortness of breath with fluid boluses Qualifiers: Qualified Codes: I25.10 - Atherosclerotic heart disease of [place] coronary artery without angina pectoris (10) HTN (hypertension) Status: Chronic Assessment & Plan: 05/05 -home lisinopril on hold while ARF -will monitor; pt initially hypotensive -at time of exam blood pressure WNL, pt home blood pressure medication still on hold -pt reports still feeling a little light headed and dizzy Qualifiers: Qualified Codes: I15.2 - Hypertension secondary to endocrine disorders (11) Depression Status: Chronic Assessment & Plan: 05/05 -resume home medications Qualifiers: Qualified Codes: F33.9 - Major depressive disorder, recurrent, unspecified (12) Tobacco abuse Status: Chronic Assessment & Plan: Cessation encouraged (13) Marijuana smoker Status: Chronic Assessment & Plan: 05/05 -Cessation encouraged -asked patient about THC use, as UDS positive for that, pt freely admits to using THC to help control his significant tremors from his Parkinson's Disease (14) Hx of testicular cancer Status: Chronic Assessment & Plan: s/p r orchiectomy (15) Anxiety Status: Chronic Assessment & Plan: 05/05 -will resume home meds (16) Positive urine drug screen Status: Acute Assessment & Plan: 05/05 -Pt with admitted THC use to help control his tremors from Parkinson's, which are significant -discussed with pt that his urine was also positive for amphetamines and methamphetamines; pt reports he has never done anything like this and the only drug he ever uses is the pot as mentioned above, which he freely admits to -given pt's significant tremor, and difficulty with fine motor control secondary to his Parkinson's Disease, it is certainly reasonable to consider that whoever has given him the THC and rolled it for smoking by patient could have either laced it with amphetamines/methamphetamines, or could have had some type of cross contamination; pt very honest and open about his other drug use, and am inclined to believe that he does not purposefully use the amphetamine/ methamphetamines that were in UDS; repeat UDS in office at random could confirm this; no way to prove for certain, but in speaking with patient, theory does seem possible 05/06/18 - Pt is open to working with ATS services at [facility] as OP. (17) Hypocalcemia Status: Acute Assessment & Plan: 05/05 Ca 8.2 --> 8.3 Recheck in AM (18) Hypoproteinemia Assessment & Plan: 05/05 -total protein 6.2 --> 5.9 -suspect this may be chronic for patient -consider prealbumin to assess for protein calorie malnutrition (19) Hyperchloremia Status: Acute Assessment & Plan: 05/05 -Cl 109 this am -suspect due to IVF boluses with NS -recheck labs in AM (20) Anemia Assessment & Plan: 05/05 -12.8 on admission, now 12.9 -suspect this is likely baseline for patient and secondary to chronic disease, but further workup would be needed to see if this is the case -given Hgb >12, find pt's dizziness unlikely to be secondary to his mild anemia Qualifiers: Qualified Codes: D64.9 - Anemia, unspecified (21) DVT prophylaxis Status: Acute Assessment & Plan: 05/05 -Lovenox with renal dosing while hospitalized -ambulate with assistance when able -may need to consider heparin due to ARF Chief Complaint/HPI Chief Complaint/HPI Patient brought to [facility] for clinic appt for frequent falls, was noted to fall in the parking lot, obtaining laceration on forehead and knee abrasion. He was brought into the clinic, reported having a lot of dizziness; manual BP was reported to be 68/40 per M. Hatfield [employer] after multiple checks, and pt was sent via EMS to ED for further evaluation. Pt reported to ED staff that he has been working outside all day and does not drink much - some soda and tea, and has not eaten today. Is a known diabetic. No urination all day today. Also reported some left shoulder and back pain; reports symptoms have been going on for the last several days. Noted to have acute renal failure and dehydration, rhabdo also secondary to dehydration; was admitted for hydration and monitoring. Discharge Summary-Simple/Stand Consultations Discharge Physical Examination Allergies: Coded Allergies: NKANo Known Allergies (Verified Allergy, Unknown, 08/10/06) Vitals & I&Os Vital Sign - Last 12Hours Date Time Temp Pulse Resp B/P (MAP) Pulse Ox O2 Delivery O2 Flow Rate FiO2 05/06/18 08:59 98.6 70 20 163/83 (109) 99 Room Air 05/05/18 08:00 2.00 Intake and Output 05/06/18 00:00 Intake Total 3500 ml Output Total 1925 ml Balance 1575 ml General Appearance: Alert, Oriented X3, Cooperative Neuro: Other (resting tremor) Psych/Mental Status: Mood NL Hospital Course See final discharge diagnosis. Radiology Reviewed Date of Exam: 05/04/18 CT HEAD/FACE/CERVICAL WO PROCEDURE: CT head, face, and cervical spine without contrast. TECHNIQUE: Multiple contiguous axial images were obtained through the head, neck, and facial bones without the use of intravenous contrast. Sagittal and coronal reformations through the cervical spine and facial bones were also performed. INDICATION: Injury to head, face, and neck, syncope with fall. COMPARISON: MRI of the cervical spine from 02/11/2016. FINDINGS: CT head: The ventricles and cortical sulci are diffusely prominent. There is no midline shift or mass effect. Calcific atherosclerosis is present. No acute intracranial hemorrhage is seen. No CT evidence of acute territorial ischemia is identified. The calvarium appears intact. CT face: The pterygoid plates and zygomatic arches are intact. The mandible appears intact. Motion artifact is present. The maxillary sinuses and orbits appear intact. Mucus retention cysts are noted in the right maxillary sinus. The globes appear intact. There is soft tissue edema overlying the left mandible. CT cervical spine: There is motion artifact on multiple images. This results in suboptimal evaluation. No acute fracture is seen. There is grade 1 anterolisthesis at C3-C4 and C4-C5. Advanced degenerative changes are seen at C5-C6 and C6-C7, resulting in spinal canal stenosis at those levels. There is multilevel foraminal stenosis as well. No bony fragments or hyperdense fluid collections are seen in the spinal canal. There is a prominent right thyroid lobe. IMPRESSION: 1. No acute intracranial hemorrhage, calvarium fracture, or CT evidence of acute territorial ischemia seen. 2. Generalized parenchymal volume loss. 3. No acute facial fracture seen. 4. Motion artifact in the cervical spine with no acute fracture seen. There are multilevel degenerative changes and spondylolisthesis. There is spinal canal stenosis at C5-C6 and C6-C7. PELVIS INDICATION: Syncope. EXAMINATION: Pelvis, 05/04/2018. FINDINGS: No fracture or dislocation appreciated. There is hyperdensity along the right superior femoral head, which is nonspecific but could represent a focus of AVN. This has a fairly chronic appearance. No collapse of the adjacent femoral head is seen. IMPRESSION: 1. Chronic changes in the right hip. No fractures appreciated at this time, but if there is persistent pain or patient cannot bear weight, MRI recommended. Date of Exam: 05/04/18 CHEST 1 VIEW, AP/PA ONLY PATIENT HISTORY: Syncope, fall. TECHNIQUE: Single frontal view of the chest. COMPARISON: 09/19/2007. FINDINGS: Lung volumes are mildly low. There are perihilar interstitial opacities which may represent central vascular congestion or may be due to crowding from low lung volumes. The cardiac silhouette appears mildly prominent, likely related to technique. No pleural effusion or pneumothorax is seen. No acute osseous abnormality is seen. IMPRESSION: Findings of mild cardiomegaly and mild central vascular congestion, maybe accentuated by low lung volumes. Discharge Instructions to patient/family Please see electronic discharge instructions given to patient. Patient Instructions Goal/Follow Up Appt: [facility] w/ MT[facility] Hatfield 05/11/18 at1 pm Activity & Diet Discharge Diet: ADA Diet Orders-Post D/C & Referrals Pneu Vac Indicated: Yes Discharge Medications Reviewed and agree with Discharge Medication list on patient's Discharge Instruction sheet Discharge [facility] Discharge Medications Continued Medications: Aripiprazole (Aripiprazole) 15 Mg Tablet 15 MG PO DAILY, TAB Baclofen (Baclofen) 10 Mg Tablet 10 MG PO TID, TAB Carbidopa/Levodopa (Carbidopa-Levodopa 10-100 Tab) 1 Each Tablet 1 TAB PO TID, TAB Carvedilol (Carvedilol) 6.25 Mg Tablet 6.25 MG PO BID, TAB Escitalopram Oxalate (Escitalopram Oxalate) 20 Mg Tablet 20 MG PO DAILY, TAB Gabapentin (Gabapentin) 300 Mg Capsule 300 MG PO TID, CAP Lisinopril (Lisinopril) 20 Mg Tablet 20 MG PO DAILY, TAB Metformin HCl (Metformin HCl ER) 500 Mg Tab.er.24h 500 MG PO BID WITH MEALS, TAB Simvastatin (Simvastatin) 40 Mg Tablet 40 MG PO HS, TAB Trazodone HCl (Trazodone HCl) 100 Mg Tablet 200 MG PO HS, TAB TAKES 2 (100MG) TABLETS Discontinued Medications: Meloxicam (Meloxicam) 7.5 Mg Tablet 7.5 MG PO BID, TAB Clinical Quality Measures DVT/VTE Risk/Contraindication: Risk Factor Score Per Nursin RFS Level Per Nursing on Admit: 4+=Very High RODOLFO SAHNI DO May 06, 2018 10:49
== END 2018-05-06 13:50 | disposition home or self-care (01) | DRG 683 ==
LOC: ER 17:47 → 4TH 19:20
PROVIDERS: ADMIT Family Medicine; ATTEND Family Medicine
DX: N17.9 Acute kidney failure, unspecified (principal); E86.0 Dehydration; M62.82 Rhabdomyolysis; G20 Parkinson's disease; E83.51 Hypocalcemia; E77.8 Other disorders of glycoprotein metabolism; E87.8 Other disorders of electrolyte and fluid balance, not elsewhere classified; D64.9 Anemia, unspecified; E11.40 Type 2 diabetes mellitus with diabetic neuropathy, unspecified; I15.2 Hypertension secondary to endocrine disorders; S01.81XA Laceration without foreign body of other part of head, initial encounter; S80.211A Abrasion, right knee, initial encounter; F17.210 Nicotine dependence, cigarettes, uncomplicated; F12.90 Cannabis use, unspecified, uncomplicated; I25.10 Atherosclerotic heart disease of native coronary artery without angina pectoris; J44.9 Chronic obstructive pulmonary disease, unspecified; M48.02 Spinal stenosis, cervical region; F32.9 Major depressive disorder, single episode, unspecified; F41.9 Anxiety disorder, unspecified; K58.9 Irritable bowel syndrome, unspecified; F43.10 Post-traumatic stress disorder, unspecified; F60.9 Personality disorder, unspecified; J30.2 Other seasonal allergic rhinitis; E78.5 Hyperlipidemia, unspecified; M19.91 Primary osteoarthritis, unspecified site; W01.198A Fall on same level from slipping, tripping and stumbling with subsequent striking against other object, initial encounter; Y92.89 Other specified places as the place of occurrence of the external cause; Z85.47 Personal history of malignant neoplasm of testis; Z90.79 Acquired absence of other genital organ(s); Z79.84 Long term (current) use of oral hypoglycemic drugs
CPT/HCPCS: 36415; 36600; 70450; 70486; 71045; 72125; 72170; 80048; 80053; 80306; 80320; 80329; 81000; 82010; 82150; 82550; 82553; 82805; 82962; 83605; 83690; 83735; 83874; 83880; 84100; 84443; 84484; 85025; 85610; 85730; 86141; 87040; 93005; 93041; 96360

== ENCOUNTER → 2019-01-30 | Outpatient (CLI) | payer MEDICARE ==
[~2019-01-30] MED LIST changes: +ARIP15TA9 PO; +BACL10TA PO; +CARB1TAB17 PO; +ESCI20TA45 PO; +METF-399 PO; -METF10002 PO; +METF500T8 PO; +TRAZ-189 PO; +TRAZ-190 PO; -TRAZ-28 PO
== END | disposition home or self-care (01) ==
LOC: PREOP 08:37
PROVIDERS: ATTEND Surgery
DX: Z01.818 Encounter for other preprocedural examination (principal)

== ENCOUNTER 2019-02-06 12:42 | Day surgery (SDC) | payer MEDICARE, MEDICAID ==
[~2019-02-06] VITALS: Ht 167.6 cm; Wt 71.4 kg
[2019-02-06] MEDS ORDERED: LACTATED RINGERS 1,000 ML IV ONE (12:59)
--- NOTE | 2019-02-06 13:05 | Progress Note-Pre Operative ---
Pre-Operative Progress Note H&P Reviewed The H&P was reviewed, patient examined and no changes noted. Date Seen by Provider: Feb 06, 2019 Time Seen by Provider: 13:04 Date H&P Reviewed: Feb 06, 2019 Time H&P Reviewed: 13:04 Pre-Operative Diagnosis: change in bowel habits, chronic diarrhea AISHWARYA LE DO Feb 06, 2019 13:05
[2019-02-06] MEDS ORDERED: MIDAZOLAM 2 MG/2 ML (VERSED) VIAL ONE (13:12)
[2019-02-06] MEDS ORDERED: PROPOFOL INJECTION 50 ML IV ONE (13:12)
[2019-02-06] MEDS ORDERED: LACTATED RINGERS 1,000 ML IV STA (13:21)
[2019-02-06] MEDS ORDERED: MIRT45TA3 PO (13:32)
[2019-02-06] MEDS ORDERED: MELO7.5T46 PO (13:32)
[2019-02-06] MEDS ORDERED: GLYCOPYRROLATE 0.2 MG/ML (ROBINUL) 2 ML VIAL ONE (13:34)
[2019-02-06 13:35] VITALS: BP 152/79
--- NOTE | 2019-02-06 13:50 | Progress Note-Post Operative ---
Post-Operative Progess Note Surgeon (s)/Director Inbound Sales (s) Surgeon AISHWARYA LE DO Director Inbound Sales: na Pre-Operative Diagnosis change in bowel habits, chronic diarrhea Post-Operative Diagnosis poor prep, sigmoid polyps Procedure & Operative Findings Date of Procedure 02/06/19 Procedure Performed/Findings flex sig hot bx polypectomy x 3, incomplete colonoscopy Anesthesia Type per cloth booker Estimated Blood Loss Estimated blood loss (mL): none Specimens/Packing Specimens Removed sigmoid polyps x 3 AISHWARYA LE DO Feb 06, 2019 13:50
--- NOTE | 2019-02-06 13:51 | Discharge Inst-Simple/Standard ---
Discharge Inst-Standard Patient Instructions/Follow Up Plan of Care/Instructions/FU: 2 weeks Elaine Activity as Tolerated: Yes Discharge Diet: Regular Diet AISHWARYA LE DO Feb 06, 2019 13:51
[2019-02-06 13:55] VITALS: BP 124/58
[2019-02-06 14:25] VITALS: BP 150/78
[2019-02-06 14:40] VITALS: BP 150/78
--- NOTE | 2019-02-07 01:07 | OPERATIVE REPORT ---
DATE OF SERVICE: 02/06/2019 PREOPERATIVE DIAGNOSIS: Change in bowel habits, chronic diarrhea. POSTOPERATIVE DIAGNOSIS: Poor prep and sigmoid colon polyps x3. PROCEDURE: Flexible sigmoidoscopy with hot biopsy polypectomy x3, a complete colonoscopy. SURGEON: Aishwarya Henry DO ANESTHESIA: Per [employer] OPERATOR. ESTIMATED BLOOD LOSS: None. COMPLICATIONS: None. INDICATIONS: The patient is a 63-year-old male who was recommended to have colonoscopy. He understands risks and benefits of procedure and wished to proceed with procedure. Consent was signed in the chart. PROCEDURE: The patient was taken to the endoscopy suite, placed in left lower recumbent position. Timeout was performed. Digital rectal exam was performed. There were no palpable polyps, masses or ulcerations. Scope was inserted in the rectum and advanced up through the rectum into the sigmoid. There was a fair amount of stool still present, which continued be advanced through the sigmoid colon still encountering a fairly large amount of stool not giving any beneficial visualization. At this time, it was decided to discontinue attempted colonoscopy. Scope was then begun to be slowly retracted back from the sigmoid colon. Copious amounts of irrigation were used to irrigate and suction. Within the sigmoid colon there are three polyps all right next to one other at a significant turn. Hot biopsy polypectomy was performed on these 3 polyps. Scope was continuously retracted back into the rectum where it was inserted and retracted multiple times noting no other pathology. Scope was then slowly retracted back to completely remove. The patient tolerated the procedure well without any complications and taken to recovery room in stable condition. RECOMMENDATIONS: The patient will be recommended 2-day prep and then plan on formal colonoscopy. We will also discuss pathology results. We will have him follow up in 2 weeks. Job ID: [id number] DocumentID: [id number] Dictated Date: 02/06/2019 13:54:51 Carpenter Helper Date: 02/07/2019 01:06:18 Dictated By: AISHWARYA HENRY DO
== END 2019-02-06 14:40 | disposition home or self-care (01) ==
LOC: ENDO 12:42
PROVIDERS: ATTEND Surgery
DX: D12.5 Benign neoplasm of sigmoid colon (principal); K63.5 Polyp of colon; K52.9 Noninfective gastroenteritis and colitis, unspecified; E11.9 Type 2 diabetes mellitus without complications; I10 Essential (primary) hypertension; F17.210 Nicotine dependence, cigarettes, uncomplicated; F32.9 Major depressive disorder, single episode, unspecified; Z79.84 Long term (current) use of oral hypoglycemic drugs; Z79.899 Other long term (current) drug therapy
CPT/HCPCS: 82962

== ENCOUNTER 2020-03-23 00:45 | Emergency (ER) | payer MEDICAID, MEDICARE ==
[~2020-03-23] VITALS: Ht 162 cm; Wt 80.4 kg
[~2020-03-23 00:45] MED LIST changes: +METF500T19 PO; -METF500T8 PO; +MIRT45TA3 PO; +SIMV40TA25 PO; -SIMV40TA4 PO; -TIZA4TAB3 PO; +TIZA4TAB4 PO; -TRAZ-189 PO; -TRAZ-190 PO; +TRAZ-227 PO; +TRZ50T PO
--- OUTSIDE RECORDS SUMMARY | 2020-03-23 00:52 | XMS REPORT | Clinical Summary ---
Author Author [facility] Organization [facility] Address Unknown Phone Unavailable Care Team Providers Care Enrollment Management Manager Name Role Phone Self, Referral PCP Unavailable Source Comments Some departments are not documenting in the electronic medical record. If you d o not see the information that you expected, contact Release of Information in [facility] Information Management department at [phone] for further assistan tamika in locating additional records.[facility] Allergies No Known Allergies Medications End Date Status Medication Sig Dispensed Refills Start Date Active divalproex (DEPAKOTE) 500 take 500 mg 0 09/21 4/200 mg PO TbEC by mouth 7 Daily. Active risperidone (RISPERDAL) 2 take 2 mg by 0 09/21 4/200 mg PO Tab mouth Twice 7 Daily. 0.5 mg in the morning and 2 mg at night Active trazodone (DESYREL) 100 take 200 mg 0 14/ 200 mg PO Tab by mouth 7 Daily. Active venlafaxine XR (EFFEXOR take 150 mg 0 10/04/ 200 XR) 150 mg PO Cp24 by mouth 7 Daily. Active metformin (GLUCOPHAGE) take 500 mg 0 10/04/2 00 500 mg PO Tab by mouth 7 Daily. Active gemfibrozil (LOPID) 600 take 600 mg 0 10/04/ 200 mg PO Tab by mouth 7 Twice Daily. Active atorvastatin (LIPITOR) 20 take 20 mg by 0 /1 4/200 mg PO Tab mouth Daily. 7 Active enalapril (VASOTEC) 5 mg take 5 mg by 0 11/14 /200 PO Tab mouth Daily. 7 Active trihexyphenidyl (ARTANE) take 5 mg by 0 11 /200 5 mg PO Tab mouth RT 7 Three Times Daily Active meloxicam(+) (MOBIC) 7.5 take 7.5 mg 0 10/04 /200 mg PO Tab by mouth 7 Twice Daily. Active oxcarbazepine (TRILEPTAL) take 300 mg 0 09/21 4/200 300 mg PO Tab by mouth 7 Daily. Active oxycodone/acetaminophen take 1-2 Tabs 30 0 (PERCOCET) 5/325 mg PO by mouth 7 Tab Every 4 Hours as needed for Pain. Active senna/docusate take 2 Tabs 60 1 (SENOKOT-S) 8.6/50 mg PO by mouth 7 Tab Daily. Active trimethoprim/sulfamethoxa take 1 Tab by 6 0 zole (BACTRIM DS) 160/800 mouth Twice 7 mg PO Tab Daily. Active Problems Problem Noted Date Calculus of kidney 10/25/2007 Nephrolithiasis 10/06/2007 Social History Date Tobacco Use Types Packs/Day Years Used Former Smoker 1 Drinks/Week oz/Week Comments Alcohol Use No Sex Assigned at Date Recorded Not on file Industry Job Start Date Occupation Not on file Not on file Not on file Travel End Travel History Travel Start No recent travel history available. Last Filed Vital Signs Reading Time Taken Comments Vital Sign 111/67 10/06/2007 9:56 AM [employer] Blood Pressure 65 10/06/2007 9:56 AM [employer]ACHINE Pulse 36.9 C (98.4 F) 10/06/2007 9:56 AM [employer] MACHINE Temperature - - Respiratory Rate 96% 10/06/2007 9:56 AM [employer] MACHINE Oxygen Saturation - - Inhaled Oxygen Concentration 82.6 kg (182 lb) 10/04/2007 7:48 AM [employer]ACHINE Weight 167.6 cm (5' 6") 10/04/2007 7:48 AM [employer]ACHINE Height 29.38 10/04/2007 7:48 AM [employer]ACHINE Body Mass Index Plan of Treatment Health Maintenance Due Date Last Done Comments HIV SCREENING 1969 DTAP/TDAP VACCINES (1 - 1972 Tdap) HEPATITIS C SCREENING 1972 PHYSICAL (COMPREHENSIVE) 1972 EXAM COLORECTAL CANCER 2004 SCREENING SHINGLES RECOMBINANT 2004 VACCINE (1 of 2) ABDOMINAL AORTIC ANEURYSM 2019 SCREENING PNEUMONIA (PPSV23) 2019 VACCINE (1 of 1 - PPSV23) INFLUENZA VACCINE 08/21/2020 Results Not on filefrom Last 3 Months
--- OUTSIDE RECORDS SUMMARY | 2020-03-23 00:53 | XMS REPORT ---
Author Author Dispatch. Organization Dispatch. Address [address] [address] Care Team Providers Care Egg Caser Name Role Phone HILL MCDONALDE Unavailable Unavailable ROSA M PAREKH Unavailable Unavailable RODOLFO SAHNI Unavailable MCDONALD, NILAM Unavailable ANGEL STYLES Unavailable ANGEL STYLES Unavailable NIKITA GROVER Unavailable Unavailable RODOLFO SAHNI Unavailable Unavailable MARS TEAGUE Unavailable Unavailable MCDONALD, NILAM Unavailable MCDONALD, NILAM Unavailable MCDONALD, NILAM Unavailable MCDONALD, NILAM Unavailable MCDONALD, NILAM Unavailable DEE ORTIZ Unavailable NILAM Lomax Unavailable VU MORALES Unavailable RAMIREZ, ARTEMIO Unavailable RAMIREZ, ARTEMIO Unavailable RAMIREZ, ARTEMIO Unavailable RAMIREZ, ARTEMIO Unavailable RAMIREZ, ARTEMIO Unavailable ROSA M PAREKH Unavailable RODOLFO SAHNI Unavailable RAMIREZ, ARTEMIO Unavailable RAMIREZ, ARTEMIO Unavailable RAMIREZ, ARTEMIO Unavailable BUNNY TORO Unavailable RAMIREZ, ARTEMIO Unavailable RAMIREZ, ARTEMIO Unavailable ROSA M PAREKH Unavailable ROSA M PAREKH Unavailable RAMIREZ, ARTEMIO Unavailable RAMIREZ, ARTEMIO Unavailable RAMIREZ, ARTEMIO Unavailable RODOLFO SAHNI Unavailable RAMIREZ, ARTEMIO Unavailable RAMIREZ, ARTEMIO Unavailable RAMIREZ, ARTEMIO Unavailable NILAM MCDONALD CASHIERS SUPERVISOR Unavailable Unavailable ROXANA CORTEZ FACC, NATHAN FACP CCDS Unavailable Unavailole STYLES MD, ANGEL Thompson Unavailable Unavailable GERTRUDIS CORTEZ, TONIA Unavailable Unavailable GALLEGOS-CASHERO, MARS N CASHIERS SUPERVISOR Unavailable UnavailAISHWARYA Marsh DO Unavailable Unavailable ASHLEY CAMPBELL Unavailable ASHLEY CAMPBELL Unavailable ASHLEY CAMPBELL Unavailable ANITA PALMER Unavailable CAROLE CORTEZ, MIKAELA Pena Unavailable Unavailable RODOLFO SAHNI PCP Migration, Doctor Unavailable Unavailable Migration, Doctor Unavailable Unavailable ZZGILMORE CASHERO, MARS Unavailable Migration, Doctor Unavailable Unavailable ZZGILMORE CASHERO, MARS Unavailable ZZGILMORE CASHERO, MARS Unavailable ZZGILMORE CASHERO, MARS Unavailable ZZGILMORE CASHERO, MARS Unavailable ZZGILMORE CASHERO, MARS Unavailable ZZGILMORE CASHERO, MARS Unavailable Migration, Doctor Unavailable Unavailable ZZGILMORE CASHERO, MARS Unavailable Migration, Doctor Unavailable Unavailable Migration, Doctor Unavailable Unavailable ZZGILMORE CASHERO, MARS Unavailable ZZGILMORE CASHERO, MARS Unavailable ZZGILMORE CASHERO, MARS Unavailable ZZGILMORE CASHERO, MARS Unavailable GEORGINA KAUFMAN Unavailable Unavailable ANGELINA DASH Unavailable Unavailable ASHLEY Lee Unavailable Unavailable ZZGILMORE CASHERO, MARS Unavailable GEORGINA KAUFMAN Unavailable Unavailable GEORGINA KAUFMAN Unavailable Unavailable ZZGILMORE CASHERO, MARS Unavailable ZZGILMORE CASHERO, MARS Unavailable ZZGILMORE CASHERO, MARS Unavailable GEMA TAMEZ Unavailable DALE BANUELOS Unavailable TANI HURTADO Unavailable Unavailable Unavailable Unavailable ZZGILMORE CASHERO, MARS Unavailable ZZGILMORE CASHERO, MARS Unavailable ZZGILMORE CASHERO, MARS Unavailable Allergies Normalized Allergy Reported Date of Reaction(s) Care Provider Facility Allergy Type classification allergen Allergy Onset MA (26 Unclassified NKANo Known 08-10-2006 - no information VALENCIA SCHMIDT , Not Available sources.) Allergies [facility] (28102) no information Unclassified NO KNOWN DRUG NO KNOWN DRUG AISHWARYA PARR Not Available (2 sources.) ALLERGIES ALLERGIES (84186) Medications Current Medications Medication Ingredient Drug Dose Dates Status Sig Sig Care Class(es) (Normalized) (Original) Provid er no Blood no 08-19-20 Active no no no information Glucose information 15 information informati on name (2 Monitor Dx (no sources.) 250.00 phone) 08-19-2015 no no Blood no name information inform Glucose (no ation Monitor phone) Dx 250.00 Jul, Not-Taki ng no Glucocard no 09-08-20 Active no Glucocard no information Expression information 18 information Express ion name (1 source.) Test - Test - In (no Translation Vitro 3 phone) s: [ times a day Glucocard as directed Expression 8h Aug, Test -] 2017 30 days Active no True Metrix no 09-08-20 Active no True Metrix no information Blood information 18 information Blood name (1 source.) Glucose Glucose Test (no Test - - In Vitro 3 phone) Translation times a day s: [ True as directed Metrix 8h Aug, Blood 2017 30 days Glucose Active Test -] no True Metrix no 09-08-20 Active no True Metrix no information Meter information 18 information Meter name (1 source.) w/Device w/Device as (no Translation directed 19 phone) s: [ True Aug, 2018 Metrix Active Meter w/Device] Completed/Discontinued Medications Medication Ingredient Drug Dose Dates Status Sig Sig Care Class(es) (Normalized) (Original) Provid er no Aspirin no 05-05-20 Complete no Aspirin (no information (Aspirin Ec information 18 d information (A spirin Ec phone) (2 325 Mg) 325 325 Mg) 325 sources.) Mg Tabec, Mg Tabec, 325 Mg Oral 325 Mg Oral Bedtime Discontinued escitalopra escitalopra Serotonin 20 mg Complete take 1 Escitalo pram (no m 20 mg m Reuptake d tablet by Oxalate 20 phon e) oral tablet Inhibitor mouth once Mg Tablet 20 (2 daily Mg ORAL sources.) Daily mirtazapine Mirtazapine no 45 mg Complete take 1 Mirtazapine (no 45 mg information d tablet by (Remeron) 45 phone) disintegrat mouth at Mg ing oral bedtime Tab.rapdis tablet (1 45 Mg ORAL source.) Bedtime NEGATED no no 1 g 06-30-20 no no no no no information information 17 - informat information infor mation name information 06-30-20 ion (no (1 source.) 17 phone) NEGATED no no 06-30-20 no no no no no information information 17 - informat information infor mation name information 07-01-20 ion (no (1 source.) 17 phone) Problems Active Problems Problem Normalized Date of Normalized Normalized Provider Fac ility Classification Problem(s) Problem Problem Problem Sta tus Onset/Resoluti Duration on Superficial Abrasion, Episodic Active JENN Not Availa ble injury; right knee, [place] , [place] ([address]) contusion (11 initial sources.) encounter Translations: [ ABRASION OF OTHER PART OF HEAD, INITIAL ] Deficiency and Anemia Episodic Active RODOLFO SAHNI Via [facility] other anemia [address] Hospital (3 sources.) [place] ([address]) Deficiency and Anemia, Episodic Active JENN Not Avai lable other anemia unspecified [place] , DO (76768) (6 sources.) Malaise and Asthenia Episodic Active RODOLFO SAHNI Via [facility] i fatigue (5 [address]33 Hospital sources.) [place] ([address]378) Other and Benign Episodic Active AISHWARYA LE , Not Avai lable 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 (2 sources.) Chronic Chronic Chronic Active JENN Not Available obstructive obstructive [place] , DO (01936) pulmonary pulmonary disease and disease, bronchiectasis unspecified (11 sources.) Unclassified Depression no information Active RODOLFO SAHNI Vi a Dena ([address] [place] [address] (45352) Diabetes Diabetes no information Active RODOLFO SAHNI Via [facility] mellitus mellitus [address] [place] [address] without without [place] complication complication (24901) (1 source.) Other Diarrhea, Episodic Active AISHWARYA LE , Not Meredith ilable gastrointestin unspecified DO (97777) al disorders (12 sources.) Other Functional Episodic Active ARTEMIO RAMIREZ Communi ty gastrointestin diarrhea [address] [place] [address] al disorders Translations: of [facility] (20 sources.) [ - Functional [place] (46558) 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, - Functional 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] Other Hypocalcemia Chronic Active RODOLFO SAHNI Via Chri sti nutritional; [address] [place] [address] endocrine; and [place] metabolic (48187) disorders (5 sources.) Other Hypocalcemia Chronic Active JENN Not Avail able nutritional; [place] , [place] (13208) endocrine; and metabolic disorders (6 sources.) Other Hypoproteinemi Chronic Active RODOLFO SAHNI [facility] nutritional; a [address] [place] [address] endocrine; and [facility] metabolic (03746) disorders (1 source.) Other injuries Injury due to Episodic Active RODOLFO SAHNI Vi [facility] and conditions impact of [address] [place] [address] due to moving subject [place] external with the (89680) causes (1 stationary source.) object Hemorrhoids Internal Episodic Active TONIA HERNANDEZO , Not Av ailable (15 sources.) hemorrhoids (91168) without mention of complication Translations: [ EXT HEMORRHOID W/O COMPL] 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 ASHUTOSH AGUILAR (54902) al disorders without (18 sources.) diarrhea Open wounds of Laceration Episodic Active JENN Not Av ailable head; neck; without [place] , DO (13943) and trunk (6 foreign body sources.) of other part of head, initial encounter Other [facility] Episodic Active CLAUDINE Not Availabl e aftercare (7 (current) use ASHUTOSH AGUILAR (00619) sources.) of aspirin Other Long-term Episodic Active MARS Not Availabl e aftercare (3 (current) use [facility] (44314) sources.) of other O medications Cancer of Malignant Chronic Active RODOLFO SAHNI Via Dena testis (1 tumor of [facility] Hospital source.) testis [place] (15007) Other nervous Other chronic Chronic Active [facility] pain [address] [place] [address] Center disorders (20 Translations: of [facility] sources.) [ - Other [place] (40831) chronic pain G89.29, - Other chronic pain G89.29] Other Other Chronic Active JENN Not Available nutritional; disorders of [place] , [place] (24729) endocrine; and glycoprotein metabolic metabolism disorders (6 sources.) Other Other long Episodic Active NAGEL STYLES , Not Av ailable aftercare (23 term (current) (37238) sources.) drug therapy Translations: [ - Controlled substance agreement signed Z79.899, - Controlled substance agreement signed Z79.899] Parkinson's 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 (11 disorder, [place] , DO (81329) sources.) unspecified Other and Polyp of colon Episodic Active AISHWARYA LE , No t Available unspecified DO (17582) benign neoplasm (3 sources.) NEGATED Repeated falls Episodic Active no name no info rmation no information (5 sources.) Other Rhabdomyolysis Episodic Active RODOLFO SAHNI Via Ch risti connective [address] [place] [address] tissue disease [place] (3 sources.) (96972) Other Rhabdomyolysis Episodic Active JENN Not Meredith ilable connective [place]IKUNJD[place] , [place] (69593) tissue disease (6 sources.) Suicide and Suicidal Episodic Active MIKAELA ODGERS Not Meredith ilable intentional ideations MD (84717) self-inflicted injury (16 sources.) Diabetes Type 2 no information Active JENN Not Avai lable mellitus with diabetes BARCHARLES , DO (50347) complications mellitus with (9 sources.) diabetic neuropathy, unspecified Translations: [ TYPE 2 DIABETES MELLITUS WITH UNSPECIFIE] Unclassified no information no information Active RODOLFO SAHNI Via Dena ([address] [place] [address] (48387) Past or Other Problems Problem Normalized Date of Normalized Normalized Provider Fac ility Classification Problem(s) Problem Problem Problem Sta tus Onset/Resoluti Duration on Other long term 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 Hospital status [place] (37960) Unclassified no information no information no information RODOLFO SAHNI Via [facility] (1 source.) [address] [place] [address] (71610) Procedures Procedure Normalized Procedure Procedure Result Performer Facility Date 02-06-2019 Administration of no information AISHWARYA LE As cension Via [facility] (81654) 05-04-2018 Blood count hemoglobin no information no name (no p yessy) [facility] (09579) 05-04-2018 Collection venous no information no name (no phone) [facility] blood venipuncture [facility] (92770) 05-04-2018 Ct Head/Face/Cervical no information JACINTA vázquez [facility] (57594) 02-07-2015 Debridement nail any no information no name (no byron ne) [facility] method 1-5 [facility] (83250) 05-12-2018 Drug test prsmv read no information no name (no byron ne) [facility] direct optical obs pr [facility] (91607) 05-04-2018 EKG, TRACING no information no name (no phone) [facility] (IN-HOUSE) [facility] (17990) 05-04-2018 Electrocardiographic no information JACINTA summers [facility] - procedure [place] (07843) 05-04-2018 - 05-04-2018 05-12-2018 FQHC visit, estab pt no information no name (no byron ne) [facility] (50922) 05-04-2018 [facility]QHC visit, estab pt no information no name (no byron ne) [facility] (92455) 09-23-2017 FQHC visit, estab pt no information no name (no byron ne) [facility] (86192) 09-19-2017 [facility]QHC visit, estab pt no information no name (no byron ne) [facility] (96632) 09-19-2017 Hemoglobin (HGB) no information no name (no phone) [facility] (46736) 05-12-2018 Hemoglobin no information no name (no phone) Comm [facility] glycosylated a1c [facility] (11338) 09-03-2014 Hemoglobin no information no name (no phone) [facility] glycosylated a1c [facility] (50813) 05-12-2018 LAB NOT BILLED BY no information no name (no phone) [facility] (53597) 05-12-2018 No Charge no information no name (no phone) Comm [facility] (68273) 05-05-2018 Plain chest X-ray no information JENN Rubio Via [facility] (17638) 05-04-2018 Plain chest X-ray no information JACINTA GRAVES Via [facility] (76826) 05-04-2018 - 05-04-2018 11-08-2018 Psychiatric diagnostic no information no name (no p yessy) [facility] evaluation [facility] (85837) 05-12-2018 Urine albumin no information no name (no phone) [facility] semiquantitative [facility] (57365) 09-23-2017 X-ray exam of lower no information no name (no phon e) [facility] spine [facility] (59801) Immunizations Normalized Immunization Date Notes Care Provider Facili ty Immunization influenza, 01-22-2020 no information no name Counts Include [facility] ealth injectable, [facility] quadrivalent, - [facility] contains (39351) preservative pneumococcal 01-22-2020 no information no name [facility] conjugate vaccine, [facility] (29745) Vaccination no information RODOLFO SAHNI [address] [facility] Translations: [ [place] (62585) vaccine] Results Test Name Value Interpretation Reference Range Date Time Fa cility (Normalized) (Normalized) (Medline Reference) hemoglobin (in house) on null Hemoglobin mass 14.3 g/dL (no code) 12.1 - 17.2 g/dL Comm Counts include [facility] at [facility] (d) [facility] (58800) HEMOGLOBIN (IN 5100827 (no code) [facility] (03132) HEMOGLOBIN (IN 29 Aug 2019 (no code) [facility]) [facility] (10466) glucose fingerstick (in house) on null GLUCOSE 74 mg/dL (no code) [facility] (IN Center of HOUSE) [facility] (29065) GLUCOSE 6 hours (no code) [facility] (IN Center of HOUSE) [facility] (50778) GLUCOSE 0366010 (no code) [facility] (IN Center of HOUSE) [facility] (12674) GLUCOSE 16 June 2018 (no code) [facility] FINGERSTICK (IN Center of HOUSE) [facility] (15157) a1c (in house) on null HbA1c 5.7 % (no code) 3.6 - 5.7 % [facility] (53858) HbA1c 6.0 % (no code) 3.6 - 5.7 % [facility] (63371) A1C (IN HOUSE) 0762 (no code) [facility] (93874) A1C (IN HOUSE) 06/08 (no code) [facility] (72227) No panel information on null Exp date 12/2020 (no code) [facility] (87552) Lot 6.4~5.7~0993 (no code) [facility] (16265) No panel information on 2020-01-23 Albumin 4.1 g/dL (N) 3.4 - 5.4 g/dL [facility] [Mass/Vol] [facility] (36364) Albumin/Globulin 1.6 {ratio} (N) 1 - 2.5 {ratio} Comm [facility] [Mass ratio] [facility] (00217) ALP [Catalytic 91 U/L (N) 44 - 147 U/L [facility] activity/Vol] [facility] (23210) ALT [Catalytic 16 U/L (N) 4 - 40 U/L Community [facility] activity/Vol] [facility] (23198) AST [Catalytic 12 U/L (N) 10 - 34 U/L [facility] activity/Vol] [facility] (96789) Bilirubin 0.6 mg/dL (N) 0.1 - 1.2 mg/dL [facility] [Mass/Vol] [facility] (87349) Calcium 9.5 mg/dL (N) 8.5 - 10.2 mg/dL [facility] [Mass/Vol] [facility] (71900) Chloride 101 mmol/L (N) 95 - 106 mmol/L [facility] [Moles/Vol] [facility] (69990) Cholesterol 146 mg/dL (N) 180 - 200 mg/dL [facility] [Mass/Vol] [facility] (14975) Cholesterol in 39 mg/dL (L) [facility] HDL [Mass/Vol] [facility] (69080) Cholesterol in 78 mg/dL (N) 0 - 100 mg/dL [facility] LDL [Mass/Vol] [facility] (48474) Cholesterol non 107 mg/dL (N) [facility] HDL [Mass/Vol] [facility] (31483) Cholesterol.tota 3.7 {ratio} (N) [facility]/Cholesterol in [facility] HDL [Mass ratio] [facility] (89354) CO2 [Moles/Vol] 28 mmol/L (N) 23 - 29 mmol/L [facility] (21325) Creatinine 0.82 mg/dL (N) [facility] h [Mass/Vol] [facility] (63818) GFR/1.73 sq M 108 (N) 90 - 120 [facility] predicted among mL/min/{1.73_m2} mL/min/{1.73_m2} Center o f [facility] blacks MDRD [facility] (S/P/Bld) [Vol (16148) rate/Area] GFR/1.73 sq 93 (N) 90 - 120 [facility] M.predicted MDRD mL/min/{1.73_m2} mL/min/{1.73_m2} [facility] (S/P/Bld) [Vol [facility] rate/Area] (31936) Globulin (S) 2.5 g/dL (N) 2 - 3.5 g/dL Community [facility]alt [Mass/Vol] [facility] (54727) Glucose 112 mg/dL (H) 60 - 125 mg/dL [facility] [Mass/Vol] [facility] (16084) Potassium 4.7 mmol/L (N) 3.7 - 5.2 mmol/L [facility] [Moles/Vol] [facility] (89444) Prostate 0.7 ng/mL (N) 0 - 4 ng/mL [facility] specific Ag [facility] [Mass/Vol] [facility] (43567) Protein 6.6 g/dL (N) 6.4 - 8.3 g/dL [facility] [Mass/Vol] [facility] (39861) Sodium 135 mmol/L (N) 135 - 145 mmol/L [facility] [Moles/Vol] [facility] (95141) Triglyceride 193 mg/dL (H) 0 - 150 mg/dL [facility] [Mass/Vol] [facility] (45751) TSH Qn 1.39 m[IU]/L (N) 0.4 - 4 m[IU]/L [facility] (21096) Urea nitrogen 20 mg/dL (N) 7 - 20 mg/dL [facility] [Mass/Vol] [facility] (71203) Urea NOT APPLICABLE (no code) [facility] h nitrogen/Creatin [facility] [Mass ratio] [facility] (17272) No panel information on 2020-01-22 Exp date 11/10 (no code) [facility] (95682) Lot 6.2~6.4~0610 (no code) [facility] (07853) capillary blood glucose measurement by glucometer (mass/volume) on 2019-02-06 Glucose 91 mg/dL (no code) 60 - 125 mg/dL [place] Via [Mass/Vol] [facility] (08548) No panel information on 2018-05-12 Albumin DL <= 20 2.2 mg/dL (N) 0.2 - 1.9 mg/dL Not Available mg/L mass conc (74865) (U) Albumin mass 4.2 g/dL (N) 3.4 - 5.4 g/dL Not Avail able conc (75661) Albumin/Globulin 1.4 (N) Not Available mass ratio (06819) ALP enzyme 59 U/L (N) 44 - 147 U/L Not Availabl e act/vol (21421) ALT enzyme 13 U/L (N) 4 - 40 U/L Not Available act/vol (07980) AST enzyme 11 U/L (N) 10 - 34 U/L Not Available act/vol (75658) Bilirubin mass 0.4 mg/dL (N) 0.1 - 1.2 mg/dL Not Av ailable conc (93187) Calcium mass 9.4 mg/dL (N) 8.5 - 10.2 mg/dL Not Meredith ilable conc (05858) Chloride molar 107 mmol/L (N) 95 - 106 mmol/L Not Av ailable conc (37207) CO2 molar conc 29 mmol/L (N) 23 - 29 mmol/L Not Meredith ilable (83981) Creatinine mass 0.82 mg/dL (N) Not Available conc (89707) Creatinine mass 385 mg/dL (H) Not Available conc (U) (28654) Exp date 12/2019 (no code) [facility] (48613) GFR/1.73 sq M 108 (N) 90 - 120 Not Availabl e predicted among mL/min/{1.73_m2} mL/min/{1.73_m2} (80485) blacks MDRD vol rate/area (S/P/Bld) GFR/1.73 sq 93 (N) 90 - 120 Not Available M.predicted MDRD mL/min/{1.73_m2} mL/min/{1.73_m2} (96424) vol rate/area Globulin 2.9 (N) Not Available Calculated mass (54153) conc (S) Glucose mass 91 mg/dL (N) 60 - 125 mg/dL Not Avail able conc (06163) Lot 5.9~5.7~0845 (no code) [facility] (88017) Lot # [id number] (no code) [facility] (63267) Magnesium mass 1.8 mg/dL (N) 1.7 - 2.2 mg/dL no inf ormation conc MICROALBUMIN/CRE 6 (N) Not Available ATININE RATIO, (69382) RANDOM URINE Potassium molar 5.0 mmol/L (N) 3.7 - 5.2 mmol/L Not Available conc (61553) Protein mass 7.1 g/dL (N) 6.4 - 8.3 g/dL Not Avail able conc (39383) RESULTS non-reactive (no code) no information Sodium molar 143 mmol/L (N) 135 - 145 mmol/L Not Meredith ilable conc (67833) [facility] 07/2019~+~Neg~Ne (no code) [facility] g~Neg~Positive~N [facility] eg~Neg~Neg~Neg~N [facility] eg~Neg~Neg~Neg~N (31129) eg Urea nitrogen 16 mg/dL (N) 7 - 20 mg/dL Not Availa ble mass conc (64416) Urea NOT APPLICABLE (no code) Not Available nitrogen/Creatin (79713) ine mass ratio venous blood hemoglobin measurement (mass/volume) on 2018-05-06 Hemoglobin (HGB) 11.5 g/dL (L) 12 - 18 g/dL Via [facility] (16966) serum or plasma urea nitrogen/creatin ine mass ratio on 2018-05-06 BUN/Creatinine 26 mg/mg (no code) 10 - 20 mg/mg Via [facility] (92517) serum or plasma urea nitrogen measurement (mass/volume) on 2018-05-06 Urea nitrogen 18 mg/dL (no code) 7 - 20 mg/dL Via [facility] (73028) serum or plasma sodium measurement (moles/volume) on 2018-05-06 Sodium 143 mmol/L (no code) 135 - 147 mmol/L Via [facility] ([id number]) serum or plasma potassium measurement (moles/volume) on 2018-05-06 Potassium 4.1 mmol/L (no code) 3.5 - 5.1 mmol/L Via [facility] ([id number]) serum or plasma glucose measurement (mass/volume) on 2018-05-06 Glucose 92 mg/dL (no code) 60 - 125 mg/dL Via [facility] ([id number]) serum or plasma creatinine measurement with calculation of estimated glomerular filtration rate on 2018-05-06 eGFR (non-black) no information (no code) Via [facility] ([id number]) serum or plasma creatinine measurement (mass/volume) on 2018-05-06 Creatinine 0.70 mg/dL (no code) Via [facility] ([id number]) serum or plasma creatine kinase measurement (enzymatic activity/volume) on 2018-05-06 Creatine kinase 64 U/L (no code) Via [facility] (CK) [facility] ([id number]) serum or plasma creatine kinase mb measurement (enzymatic activity/volume) on 2018-05-06 CKMB 2.5 ng/mL (no code) 0 - 2.4 ng/mL Via [facility] ([id number]) serum or plasma chloride measurement (moles/volume) on 2018-05-06 Chloride 115 mmol/L (H) 95 - 106 mmol/L Via [facility] ([id number]) serum or plasma calcium measurement (mass/volume) on 2018-05-06 Calcium 8.3 mg/dL (L) 9 - 11 mg/dL Via [facility] ([id number]) serum or plasma anion gap determination (moles/volume) on 2018-05-06 Anion gap 7 mmol/L (no code) 3 - 11 mmol/L Via [facility] ([id number]) myoglobin, serum on 2018-05-06 Myoglobin 39.6 ng/mL (no code) Via [facility] ([id number]) carbon dioxide on 2018-05-06 CO2 21 mmol/L (no code) 23 - 29 mmol/L Via [facility] ([id number]) capillary blood glucose measurement by glucometer (mass/volume) on 2018-05-06 Glucose 112 mg/dL (H) 60 - 125 mg/dL Via [facility] ([id number]) blood neutrophils automated count (number/volume) on 2018-05-06 Neutrophils 2.6 10*3/uL (no code) 1.5 - 7.8 Via [facility] 10*3/[facility] ([id number]) blood monocytes/100 leukocytes on 2018-05-06 Monocytes/100 13 % (H) 2 - 8 % Via [facility] ([id number]) blood monocytes automated count (number/volume) on 2018-05-06 Monocytes 0.8 10*3/uL (no code) 0.2 - 1.1 Via [facility] 10*3/uL [facility] ([id number]) blood lymphocytes automated count (number/volume) on 2018-05-06 Lymphocytes 2.2 10*3/uL (no code) 0.85 - 4.1 Via [facility] 10*3/uL [facility] ([id number]) blood leukocytes automated count (number/volume) on 2018-05-06 WBC (Leukocytes) 5.9 10*3/uL (no code) 3.8 - 10.8 Via [facility] 10*3/uL [facility] ([id number]) blood hematocrit (volume fraction) on 2018-05-06 Hematocrit (HCT) 33 % (L) 39 - 51 % Via [facility] ([id number]) blood erythrocytes automated count (number/volume) on 2018-05-06 Erythrocytes 3.98 10*6/uL (L) 4.2 - 6.1 Via [facility] (RBC) 10*6/uL [facility] ([id number]) automated erythrocyte mean corpuscular volume on 2018-05-06 MCV 84 fL (no code) 80 - 100 fL Via [facility] ([id number]) automated erythrocyte mean corpuscular hemoglobin concentration measurement (mass/volume) on 2018-05-06 MCHC 35 g/dL (no code) 32 - 36 g/dL Via [facility] ([id number]) automated erythrocyte mean corpuscular hemoglobin (mass per erythrocyte) on 2018-05-06 MCH 29 pg (no code) 27 - 31 pg Via [facility] ([id number]) automated erythrocyte distribution width ratio on 2018-05-06 RDW-CA 15.9 % (H) 11 - 15 % Via [facility] ([id number]) automated eosinophil count on 2018-05-06 Eosinophils 0.2 10*3/uL (no code) 0.05 - 1.5 Via [facility] 10*3/uL [facility] ([id number]) automated blood platelet mean volume measurement on 2018-05-06 Platelet mean 10.5 fL (H) 7.2 - 11.7 fL Via [facility] (PMV) [facility] ([id number]) automated blood platelet count (count/volume) on 2018-05-06 Platelets 177 10*3/uL (no code) 150 - 400 Via [facility] 10*3/uL [facility] ([id number]) automated blood neutrophils/100 leukocytes on 2018-05-06 Neutrophils/100 45 % (no code) 40 - 60 % Via [facility] leukocytes [facility] ([id number]) automated blood lymphocytes/100 leukocytes on 2018-05-06 Lymphocytes/100 38 % (no code) 20 - 40 % Via [facility] leukocytes [facility] ([id number]) automated blood eosinophils/100 leukocytes on 2018-05-06 Eosinophils/100 4 % (no code) 1 - 4 % Via [facility] leukocytes [facility] ([id number]) automated blood basophils/100 leukocytes on 2018-05-06 Basophils/100 0 % (no code) 0.5 - 1 % Via [facility] leukocytes [facility] ([id number]) automated blood basophil count (count/volume) on 2018-05-06 Basophils 0.0 10*3/uL (no code) 0 - 0.2 10*3/uL Via [facility] ([id number]) urine urobilinogen measurement by automated test strip (mass/volume) on 2018-05-05 Urine, NORMAL (no code) Via [facility] urobilinogen [facility] ([id number]) urine total bilirubin detection by test strip on 2018-05-05 Urine, bilirubin no information (no code) Via [facility] ([id number]) urine protein assay by test strip, semi-quantitativ e on 2018-05-05 Urine, protein no information (no code) Via [facility] ([id number]) urine ph measurement by test strip on 2018-05-05 Urine, pH 6 [pH] (no code) 4.6 - 8 [pH] Via [facility] ([id number]) urine nitrite detection by test strip on 2018-05-05 Urine, nitrite no information (no code) Via [facility] ([id number]) urine ketones detection by automated test strip on 2018-05-05 Urine, ketones no information (no code) Via [facility] ([id number]) urine glucose detection by automated test strip on 2018-05-05 Urine, glucose no information (no code) Via [facility] ([id number]) urine color determination on 2018-05-05 Urine, color YELLOW (no code) Via [facility] ([id number]) urine clarity determination on 2018-05-05 Urine, clarity CLEAR (no code) Via [facility] ([id number]) squamous epithelial cells detection in urine sediment by light microscopy on 2018-05-05 Urine, squamous no information (no code) Via [facility] cells [facility] in sediment [place] ([id number]) specific gravity of urine by test strip on 2018-05-05 Urine, specific 1.015 (*) Via [facility] gravity [facility] ([id number]) serum or plasma total bilirubin measurement (mass/volume) on 2018-05-05 Bilirubin 0.4 mg/dL (no code) 0.3 - 1.9 mg/dL Via [facility] (total) [facility] ([id number]) serum or plasma protein measurement (mass/volume) on 2018-05-05 Protein 5.9 g/dL (L) 6.4 - 8.3 g/dL Via [facility] ([id number]) serum or plasma phosphate measurement (mass/volume) on 2018-05-05 Phosphate 3.9 mg/dL (no code) 4 - 6.5 mg/dL Via [facility] ([id number]) serum or plasma c reactive protein measurement (mass/volume) on 2018-05-05 C reactive 0.45 mg/L (no code) 0 - 1 mg/L Via [facility] protein (CRP) [facility] ([id number]) serum or plasma aspartate aminotransferase measurement (enzymatic activity/volume) on 2018-05-05 Aspartate 11 U/L (no code) 10 - 34 U/L Via [facility] aminotransferase [facility] (AST) [place] ([id number]) serum or plasma alkaline phosphatase measurement (enzymatic activity/volume) on 2018-05-05 Alkaline 60 U/L (no code) 44 - 147 U/L Via [facility] phosphatase [facility] (ALP) [place] ([id number]) serum or plasma albumin measurement (mass/volume) on 2018-05-05 Albumin 3.4 g/dL (no code) 3.5 - 5.5 g/dL Via [facility] ([id number]) serum or plasma alanine aminotransferase measurement (enzymatic activity/volume) on 2018-05-05 Alanine 11 U/L (no code) 10 - 40 U/L Via [facility] aminotransferase [facility] (ALT) [place] ([id number]) mucus detection in urine sediment by light microscopy on 2018-05-05 Urine, mucus no information (no code) Via [facility] presence in [facility] (02289) magnesium on 2018-05-05 Magnesium 2.3 mg/dL (no code) 1.8 - 3.6 mg/dL Via [facility] ([id number]) leukocyte esterase on 2018-05-05 Urine, leukocyte 1+ (*) Via [facility] esterase [facility] ([id number]) ketones ser/plas on 2018-05-05 Ketones ser/plas no information (no code) Via [facility] ([id number]) erythrocytes detection in urine sediment by light microscopy on 2018-05-05 Urine, no information (no code) Via [facility] erythrocytes [facility] (28541) crystals detection in urine sediment by light microscopy on 2018-05-05 Urine, crystals NONE (no code) Via [facility] in [facility] (36061) complete urinalysis with reflex to culture on 2018-05-05 Complete NO (no code) Via [facility] urinalysis with Hospital reflex to [place] culture ([id number]) casts detection in urine sediment by light microscopy on 2018-05-05 Urine, casts in NONE (no code) Via [facility] ([id number]) bacteria detection in urine sediment by light microscopy on 2018-05-05 Urine, bacteria no information (no code) Via [facility] in sediment [facility] ([id number]) automated urine sediment leukocyte count by microscopy (number/high power field) on 2018-05-05 Urine, no information (no code) Via [facility] leukocytes in [facility] sedmiment [place] ([id number]) automated urine sediment erythrocyte count by microscopy (number/high power field) on 2018-05-05 Urine, NONE (no code) Via [facility] erythrocytes in Hospital sediment by area [place] (83087) setting of ventilation mode on 2018-05-04 Setting of NO (no code) Via [facility] ventilation mode [facility] ([id number]) serum or plasma troponin i.cardiac measurement (mass/volume) on 2018-05-04 Troponin I no information (no code) Via [facility] ([id number]) serum or plasma thyrotropin measurement by detection limit <=0.05 miu/l (units/volume) on 2018-05-04 Thyroid 0.78 m[IU]/L (no code) 0.4 - 4 m[IU]/L Via [facility] sti [facility] hormone (TSH) [place] ([id number]) serum or plasma amylase measurement (enzymatic activity/volume) on 2018-05-04 Amylase 52 U/L (no code) 23 - 85 U/L Via [facility] ([id number]) serum or plasma acetaminophen measurement (mass/volume) on 2018-05-04 Serum or plasma no information (L) Via [facility] acetaminophen [facility] measurement [place] (mass/volume) ([id number]) prothrombin time (pt) in platelet poor plasma by coagulation assay on 2018-05-04 Coagulation 13.7 s (no code) Via [facility] tissue factor [facility] induced in [place] platelet poor (85166) plasma measurement of body temperature on 2018-05-04 Body temperature 99.0 (no code) Via [facility] ([id number]) lipase on 2018-05-04 Lipase 28 U/L (no code) 23 - 300 U/L Via [facility] ([id number]) inr in platelet poor plasma or blood by coagulation assay on 2018-05-04 INR in blood by 1.1 {INR} (no code) 0.9 - 1.1 {INR} Via [facility] coagulation [facility] ([id number]) determination of fraction of inspired oxygen on 2018-05-04 Determination of 2L NC (no code) Via [facility] fraction of [facility] inspired oxygen [place] (46022) check arterial puncture site on 2018-05-04 Check arterial RIGHT RADIAL (no code) Via [facility] puncture site [facility] ([id number]) bnp level on 2018-05-04 BNP no information (no code) Via [facility] (59731) blood po2 on 2018-05-04 O2 saturation 157 mm[Hg] (H) 80 - 100 mm[Hg] Via [facility] ([id number]) blood pco2 on 2018-05-04 CO2 46 mmol/L (H) 23 - 29 mmol/L Via [facility] (10364) blood lactic acid measurement (moles/volume) on 2018-05-04 Lactate 1.32 mmol/L (no code) 0.5 - 2.2 mmol/L Via [facility] ([id number]) bacterial blood culture on 2018-05-04 Bacteria culture No growth (no code) Via [facility] ([id number]) assessment of wrist artery patency prior to arterial puncture on 2018-05-04 Assessment of no information (no code) Via [facility] artery [facility] patency prior to [place] arterial ([id number]) puncture arterial blood ph measurement with patient temperature correction on 2018-05-04 Chloride 7.26 mmol/L (CL) 95 - 106 mmol/L Via [facility] ([id number]) arterial blood oxygen saturation measurement on 2018-05-04 Arterial blood 99 (no code) Via [facility] oxygen [facility] saturation [place] measurement ([id number]) arterial blood carbon dioxide, total measurement (moles/volume) on 2018-05-04 CO2 21.4 mmol/L (no code) 23 - 29 mmol/L [facility] ([id number]) arterial blood bicarbonate measurement (moles/volume) on 2018-05-04 Bicarbonate 20 mmol/L (L) 21 - 28 mmol/L Via [facility] (HCO3) [facility] (84152) arterial blood base excess by calculation on 2018-05-04 Base excess -5.8 mmol/L (L) -2 - 2 mmol/L Via [facility] ([id number]) activated partial thromboplastin time (aptt) in platelet poor plasma bycoagulation assay on 2018-05-04 aPTT 26 s (no code) 25 - 35 s Via [facility] ([id number]) No panel information on 2018-05-04 Exp date 29 Aug 2019 (no code) [facility] ([id number]) Lot # [id number] (no code) [facility] ([id number]) No panel information on 2017-06-24 Albumin 3.7 (no code) 08-04-2017 Not Available Bromocresol 15:0 (06193) green (BCG) dye binding method mass conc ALP enzyme 46 U/L (no code) 44 - 147 U/L 06-24-2017 Not Avai lable act/vol 15: (56925) ALT enzyme 8 U/L (no code) 4 - 40 U/L 06-24-2017 Not Availa ble act/vol 15: (58982) Anion gap 4 16 (H) 06-24-2017 Not Available molar conc 15: (61118) AST enzyme 12 U/L (no code) 10 - 34 U/L 06-24-2017 Not Avail able act/vol 15: (51281) Bacteria LM Ql no information (no code) 06-24-2017 Not Avai lable (Urine sed) 15: (49602) Basophils Auto 0.0 10*3/uL (no code) 0 - 0.3 10*3/uL 06-24-2017 Not Available #/vol (Bld) 15: (24657) Basophils/100 0.10 % (no code) 0.5 - 1 % 06-24-2017 Not Avai lable WBC Auto (Bld) 15: (69803) Bilirubin N/A (A) 06-24-2017 Not Available Confirm Ql (U) 15: (34320) Bilirubin mass 0.3 mg/dL (no code) 0.1 - 1.2 mg/dL 06-24-2017 N ot Available conc 15: (30669) Bilirubin Ql (U) no information (no code) 06-24-2017 Not Av ailable 15:0 (88618) Calcium mass 8.9 mg/dL (no code) 8.5 - 10.2 mg/dL 06-24-2017 No t Available conc 15:0400 (68341) Chloride molar 103 mmol/L (no code) 95 - 106 mmol/L 06-24-2017 Not Available conc 15:0400 (21183) Clarity Nom (U) Clear (no code) 06-24-2017 Not Availa ble 15:31-0400 (09450) Color Nom (U) Yellow (no code) 06-24-2017 Not Availabl e 15: (58124) Creatinine mass 0.83 mg/dL (no code) 06-24-2017 Not Availa ble conc 15: (04115) Electrocardiogra Complete (no code) 06-24-2017 Not Avail able ms recorded 15: (54426) Eosinophils Auto 0.2 10*3/uL (no code) 0.05 - 0.5 06-24-2017 No t Available #/vol (Bld) 10*3/uL 15: (56525) Eosinophils/100 2.6 % (no code) 1 - 4 % 06-24-2017 Not Av ailable WBC Auto (Bld) 15: (97687) Epithelial 0-5/HPF (A) 06-24-2017 Not Available cells.squamous 15: (74084) LM.HPF #/area (Urine sed) Erythrocyte 13.0 % (no code) 11.6 - 14.6 % 06-24-2017 Not Av ailable distribution 15: (92899) width Auto Ratio (RBC) FINAL CULTURE no information (no code) 06-24-2017 Not Avail able RESULTS 15: (16203) GFR/1.73 sq 94 (no code) 90 - 120 06-24-2017 Not Availa ble M.predicted MDRD mL/min/{1.73_m2} mL/min/{1.73_m2} 15: (45037) vol rate/area Globulin 2.4 g/dL (no code) 2 - 3.5 g/dL 06-24-2017 Not Avail able Calculated mass 15: (03809) conc (S) Glucose mass 119 mg/dL (H) 60 - 125 mg/dL 06-24-2017 Not Available conc 15: (88828) Glucose Test no information (no code) 06-24-2017 Not Availa ble strip mass conc 15: (47224) (U) HCO3 molar conc 23 (no code) 06-24-2017 Not Availa ble (P) 15: (69144) Hematocrit Auto 37.5 % (L) 36.1 - 50.3 % 06-24-2017 No t Available Volume Fraction 15:31-0400 (41743) (Bld) Hemoglobin mass 12.8 g/dL (L) 12.1 - 17.2 g/dL 06-24-2017 Not Available conc (Bld) 15:31-0400 (30731) Hemoglobin Test no information (no code) 06-24-2017 Not Meredith ilable strip Ql (U) 15:31-0400 (02610) Ketones mass no information (no code) 06-24-2017 Not Availa ble conc (U) 15:31-0400 (70518) Leukocyte no information (no code) 06-24-2017 Not Availab le esterase Test 15:310400 (03929) strip Ql (U) Lymphocytes Auto 2.19 10*3/uL (no code) 0.9 - 2.9 06-24-2017 No t Available #/vol (Bld) 10*3/uL 15:31-0400 (65625) Lymphocytes/100 23.4 % (no code) 20 - 40 % 06-24-2017 Not Av ailable WBC Auto (Bld) 15:31-0400 (97347) MCH Auto Entitic 30.8 pg (no code) 27 - 31 pg 06-24-2017 Not Available mass (RBC) 15:31-0400 (64259) MCHC Auto mass 34.1 g/dL (no code) 32 - 36 g/dL 06-24-2017 Not Available conc (RBC) 15:31-0400 (22414) MCV Auto Entitic 90.4 fL (no code) 80 - 100 fL 06-24-2017 Not Available volume (RBC) 15:31-0400 (40630) MEDIA PLATED Setup at 14:43 (no code) 06-24-2017 Not Availa ble on 06/24/2017 15:31-0400 (47042) Monocytes Auto 0.8 10*3/uL (no code) 0.3 - 0.9 06-24-2017 Not A vailable #/vol (Bld) 10*3/uL 15:31-0400 (19628) Monocytes/100 8.9 % (no code) 2 - 8 % 06-24-2017 Not Avai lable WBC Auto (Bld) 15:31-0400 (20937) Neutrophils Auto 6.10 10*3/uL (no code) 1.7 - 7 10*3/uL 06-24-20 17 Not Available #/vol (Bld) 15: (32786) Neutrophils/100 65.0 % (no code) 40 - 60 % 06-24-2017 Not Av ailable WBC Auto (Bld) 15: (45082) Nitrite Test no information (no code) 06-24-2017 Not Availa ble strip Ql (U) 15: (41671) Osmolality 284 (no code) 06-24-2017 Not Available Calculated 15: (52628) pH Test strip 7.0 [pH] (no code) 4.6 - 8 [pH] 06-24-2017 Not A vailable (U) 15: (49513) Platelet mean 11.1 fL (H) 7.2 - 11.7 fL 06-24-2017 Not Available volume Auto 15: (33967) Entitic volume (Bld) Platelets Auto 195 10*3/uL (no code) 150 - 450 06-24-2017 Not A vailable #/vol (Bld) 10*3/uL 15: (04481) Potassium molar 5.0 mmol/L (no code) 3.7 - 5.2 mmol/L 06-24-2017 Not Available conc 15: (90065) Protein mass 6.1 g/dL (no code) 6.4 - 8.3 g/dL 06-24-2017 Not Available conc 15: (95303) Protein mass no information (no code) 0 - 20 mg/dL 06-24-2017 N ot Available conc (U) 15: (97639) RBC Auto #/vol 4.15 10*6/uL (L) 4.2 - 6.1 06-24-2017 Not Available (Bld) 10*6/uL 15: (05131) Sodium molar 137 mmol/L (no code) 135 - 145 mmol/L 06-24-2017 N ot Available conc 15: (86306) Specific gravity 1.010 (no code) 06-24-2017 Not Avail able Relative Density 15: (27298) (U) Urea nitrogen 12 mg/dL (no code) 7 - 20 mg/dL 06-24-2017 Not A vailable mass conc 15: (09005) Urine Volume Urine Volume (no code) 06-24-2017 Not Availabl e Sufficient 15: (99341) (10mL) Urobilinogen 0.2 (A) 0.2 - 1 06-24-2017 Not Avail able Test strip Qn {Víctor'U}/dL {Víctor'U}/dL 15: (0000 0) (U) WBC Auto #/vol 9.37 10*3/uL (no code) 3.5 - 10.5 06-24-2017 Not Available (Bld) 10*3/uL 15: (80472) WBC LM.HPF no information (no code) 0 - 5 /[HPF] 06-24-2017 Not Available #/area (Urine 15: (40600) sed) no information Urine Saved if (A) 06-24-2017 Not Avai lable Culture Needed 15: (50118) (48hrs from time of collection) No panel information on 2016-11-24 Albumin 4.6 g/dL (no code) 3.4 - 5.4 g/dL 11-24-2016 Not Meredith ilable [Mass/Vol] 06:47-0500 (53157) Albumin/Globulin 1.9 {ratio} (no code) 1 - 2.5 {ratio} 7 Not Available [Mass ratio] 06:47-0500 (63660) ALP [Catalytic 53 U/L (no code) 44 - 147 U/L 11-24-2016 Not Available activity/Vol] 06:47-0500 (77624) ALT [Catalytic 13 U/L (no code) 4 - 40 U/L 11-24-2016 Not Av ailable activity/Vol] 06:47-0500 (55542) AST [Catalytic 8 U/L (no code) 10 - 34 U/L 11-24-2016 Not A vailable activity/Vol] 06:47-0500 (42236) Basophils (Bld) 0.0 10*3/uL (no code) 0 - 0.3 10*3/uL 11-24-2016 Not Available [#/Vol] 07:29-0500 (76852) Basophils/100 0 % (no code) 0.5 - 1 % 11-24-2016 Not Avai lable WBC (Bld) 07:29-0500 (55747) Bilirubin 0.3 mg/dL (no code) 0.1 - 1.2 mg/dL 11-24-2016 Not Av ailable [Mass/Vol] 06:47-0500 (83773) Calcium 9.3 mg/dL (no code) 8.5 - 10.2 mg/dL 11-24-2016 Not A vailable [Mass/Vol] 06:47-0500 (01995) Chloride 97 mmol/L (no code) 95 - 106 mmol/L 11-24-2016 Not Av ailable [Moles/Vol] 06:38-0500 (22077) Cholesterol 135 mg/dL (no code) 180 - 200 mg/dL 11-24-2016 Not Available [Mass/Vol] 07:01-0500 (28609) Cholesterol in 41 mg/dL (no code) 11-24-2016 Not Availab le HDL [Mass/Vol] 07:10-0500 (34655) Cholesterol in 75 mg/dL (no code) 0 - 100 mg/dL 11-24-2016 Not Available LDL [Mass/Vol] 07:10-0500 (59449) Cholesterol in 19 mg/dL (no code) 11-24-2016 Not Availab le VLDL [Mass/Vol] 07:01-0500 (84612) CO2 [Moles/Vol] 26 mmol/L (no code) 23 - 29 mmol/L 11-24-2016 N ot Available 06:47-0500 (63072) Creatinine 0.71 mg/dL (L) 11-24-2016 Not Available [Mass/Vol] 06:47-0500 (93298) Eosinophils 0.4 10*3/uL (no code) 0.05 - 0.5 11-24-2016 Not Meredith ilable (Bld) [#/Vol] 10*3/uL 07:29-0500 (86842) Eosinophils/100 3 % (no code) 1 - 4 % 11-24-2016 Not Av ailable WBC (Bld) 07:29-0500 (16694) Erythrocyte 14.9 % (no code) 11.6 - 14.6 % 11-24-2016 Not Av ailable distribution 07:29-0500 (27997) width (RBC) [Ratio] GFR/1.73 sq M 116 (no code) 90 - 120 11-24-2016 Not Avai lable predicted among mL/min/{1.73_m2} mL/min/{1.73_m2} 06:47-0500 (03950) blacks MDRD (S/P/Bld) [Vol rate/Area] GFR/1.73 sq M 101 (no code) 90 - 120 11-24-2016 Not Avai lable predicted among mL/min/{1.73_m2} mL/min/{1.73_m2} 06:47-0500 (09521) non-blacks MDRD (S/P/Bld) [Vol rate/Area] Globulin (S) 2.4 g/dL (no code) 2 - 3.5 g/dL 11-24-2016 Not Av ailable [Mass/Vol] 06:47-0500 (96563) Glucose 111 mg/dL (H) 60 - 125 mg/dL 11-24-2016 Not Meredith ilable [Mass/Vol] 06:47-0500 (91286) Hematocrit (Bld) 43.7 % (no code) 36.1 - 50.3 % 11-24-2016 N ot Available [Volume 07:290500 (34584) fraction] Hemoglobin (Bld) 14.6 g/dL (no code) 12.1 - 17.2 g/dL 11-24-2016 Not Available [Mass/Vol] 07:290500 (51110) Immature 0.0 10*3/uL (no code) 0 - 0.2 10*3/uL 11-24-2016 Not Available granulocytes 07:290500 (78172) (Bld) [#/Vol] Immature 0 % (no code) 0 - 0.5 % 11-24-2016 Not Availabl e granulocytes/100 07:290500 (27428) WBC (Bld) Lymphocytes 3.0 10*3/uL (no code) 0.9 - 2.9 11-24-2016 Not Avai lable (Bld) [#/Vol] 10*3/uL 07:29-0500 (05917) Lymphocytes/100 23 % (no code) 20 - 40 % 11-24-2016 Not Av ailable WBC (Bld) 07:29-0500 (82101) MCH (RBC) 29.3 pg (no code) 27 - 31 pg 11-24-2016 Not Availab le [Entitic mass] 07:290500 (12392) MCHC (RBC) 33.4 g/dL (no code) 32 - 36 g/dL 11-24-2016 Not Avai lable [Mass/Vol] 07:29-0500 (07942) MCV (RBC) 88 fL (no code) 80 - 100 fL 11-24-2016 Not Availa ble [Entitic vol] 07:29-0500 (75110) Monocytes (Bld) 1.6 10*3/uL (H) 0.3 - 0.9 11-24-2016 Not Available [#/Vol] 10*3/uL 07:29-0500 (63705) Monocytes/100 12 % (no code) 2 - 8 % 11-24-2016 Not Avai lable WBC (Bld) 07:29-0500 (03171) Neutrophils 8.2 10*3/uL (H) 1.7 - 7 10*3/uL 11-24-2016 No t Available (Bld) [#/Vol] 07:29-0500 (02054) Neutrophils/100 62 % (no code) 40 - 60 % 11-24-2016 Not Av ailable WBC (Bld) 07:29-0500 (09799) Platelets (Bld) 281 10*3/uL (no code) 150 - 450 11-24-2016 Not Available [#/Vol] 10*3/uL 07:29-0500 (37612) Potassium 6.2 mmol/L (H) 3.7 - 5.2 mmol/L 11-24-2016 Not Available [Moles/Vol] 06:38-0500 (90599) Protein 7.0 g/dL (no code) 6.4 - 8.3 g/dL 11-24-2016 Not Meredith ilable [Mass/Vol] 06:47-0500 ([id number]) RBC (Bld) 4.98 10*6/uL (no code) 4.2 - 6.1 11-24-2016 Not Avail able [#/Vol] 10*6/uL 07:29-0500 ([id number]) Sodium 137 mmol/L (no code) 135 - 145 mmol/L 11-24-2016 Not Available [Moles/Vol] 06:34-0500 ([id number]) Triglyceride 95 mg/dL (no code) 0 - 150 mg/dL 11-24-2016 Not A vailable [Mass/Vol] 07:010500 ([id number]) Urea nitrogen 12 mg/dL (no code) 7 - 20 mg/dL 11-24-2016 Not A vailable [Mass/Vol] 06:47-0500 ([id number]) Urea 17 mg/mg (no code) 6 - 22 mg/mg 11-24-2016 Not Avail able nitrogen/Creatin 06:470500 ([id number]) ine [Mass ratio] WBC (Bld) 13.2 10*3/uL (H) 3.5 - 10.5 11-24-2016 Not Avai lable [#/Vol] 10*3/uL 07:290500 ([id number]) Vital Signs Vital Sign Value Interpretation Reference Date Time Care Prov ider Facility (Normalized) (Normalized) Range BMI (Body Mass 27.52 kg/m2 (no code) 15 - 25 kg/m2 11-08-2018 M [facility] Community Index) 13:40-0500 [id number] [facility] ([id number]) BMI (Body Mass 25.43 kg/m2 (no code) 15 - 25 kg/m2 05-12-2018 [facility] Community Index) 12:00-0400 85870 [facility] ([id number]) BMI (Body Mass 27.15 kg/m2 (no code) 15 - 25 kg/m2 09-23-2017 [facility] Community Index) 09:40-0400 19082 [facility] ([id number]) BMI (Body Mass 27.76 kg/m2 (no code) 15 - 25 kg/m2 09-19-2017 [facility] Community Index) 10:00-0400 [id number] [facility] ([id number]) Body 97.5 [degF] (no code) 97.8 - 99.0 11-08-2018 [facility] Temperature [degF] 13:40-[id number] [place] [address] ([id number]) Body 98.2 [degF] (no code) 97.8 - 99.0 05-12-2018 [facility] Temperature [degF] 12:00-[id number] [place] [address] ([id number]) Body 97.7 [degF] (no code) 97.8 - 99.0 09-23-2017 [facility] Temperature [degF] 09:40-[id number] [place] [address] ([id number]) Body 98.4 [degF] (no code) 97.8 - 99.0 09-19-2017 [facility] Temperature [degF] 10:00-[id number] [place] [address] ([id number]) Body 97.9 [degF] (no code) 97.8 - 99.0 01-21-2015 [facility] Temperature [degF] 10:25-[address] ([id number]) Body 97.2 [degF] (no code) 97.8 - 99.0 09-03-2014 [facility] Temperature [degF] 10:57-[address] ([address]) Body weight 82.28 kg (no code) kg 01-21-2015 [facility] 10:25-[address] ([id number]) Body weight 87.36 kg (no code) kg [facility]-03-[facility] 10:57-[address] ([id number]) Height 167.64 cm (no code) cm 11-08-2018 [facility] 13:40-[id number] [place] [address] ([id number]) Height 167.64 cm (no code) cm 05-12-2018 [facility] 12:00-[address] [place] [address] (80211) Height 167.64 cm (no code) cm 05-04-2018 [facility] 17:40-[address] [place] [address] ([id number]) Height 167.64 cm (no code) cm 09-23-2017 [facility] 09:40-[address] [place] [address] ([id number]) Height 167.64 cm (no code) cm 09-19-2017 [facility] 10:00-[address] [place] [address] ([id number]) Height 167.64 cm (no code) cm 01-21-2015 [facility] 10:25-[address] ([id number]) Height 167.64 cm (no code) cm 09-03-2014 [facility] 10:57-[address] ([id number]) Pulse Oximetry 0 % (no code) 95 - 100 % 11-08-2018 [facility] 13:40-[address] [place] [address] ([id number]) Weight 77.34 kg (no code) kg 11-08-2018 [facility] 13:40-[address] [place] [address] ([id number]) Weight 71.49 kg (no code) kg 05-12-2018 [facility] 12:00-[address] [place] [address] ([id number]) Weight 76.3 kg (no code) kg 09-23-2017 [facility] 09:40-[address] [place] [address] ([id number]) Weight 78.02 kg (no code) kg 09-19-2017 [facility] 10:00-[address] [place] [address] ([id number]) Interventions No Information Plan of Treatment Normalized Care Care Detail Care Activity Date Care Provider F acility Activity (BH-FU-60) [facility] 11-30-2018 - [address] 11-30-2018 - [facility] F/u 60 min 11-30-2018 [place] ([id number]) (PSY-INTAKE) [facility] 12-05-2018 - ASHLEY CAMPBELL [id number] [facility] Intake [facility] 12-05-2018 - [facility] [place] 12-05-2018 [place] ([id number]) Goals No Information Social History No Information Functional Status The data below is from unstructured sources Query Response Date Tacos rded Patient Orientation Person Place Situation May 05, 2018 9:42am Comprehension Ability Understands Co ncepts May 06, 2018 8:10am Mental Status No Information Encounters Encounter Normalized Encounter Encounter Diagnosis Care Provi dilma Organization Date Type 02-06-2019 Admission to day no information AISHWARYA LE Work no organization name - surgery (no phone ) 02-06-2019 04-11-2018 [facility] no information ARTEMIO RAMIREZ (no [facility] phone) (no phone) 05-04-2018 Emergency department no information no name (no [place]) no organization name patient visit (no phone) 09-21-2017 Emergency department no information no name (no [place]) no organization name - patient visit (no phone) 09-21-2017 05-04-2018 Evaluation and Injury due to impact JENN MAYER IDGE no organization name - management of of moving subject with Work Phone: ( no phone) 05-06-2018 inpatient the stationary object [phone] 05-19-2018 Patient encounter no information no name (no phone) no organization name (no phone) NEGATED Patient encounter no information no name (no phone) no organization name 05-12-2018 (no phone) 05-04-2018 Patient encounter no information no name (no phone) no organization name - (no phone) 05-06-2018 05-04-2018 Patient encounter no information no name (no phone) no organization name (no phone) 02-20-2018 Patient encounter no information no name (no phone) no organization name (no phone) 02-13-2018 Patient encounter no information no name (no phone) no organization name (no phone) 01-23-2018 Patient encounter no information no name (no phone) no organization name (no phone) 10-06-2017 Patient encounter no information no name (no phone) no organization name (no phone) NEGATED Patient encounter no information no name (no phone) no organization name 09-21-2017 (no phone) 08-09-2017 Patient encounter no information no name (no phone) no organization name (no phone) 07-08-2017 Patient encounter no information no name (no phone) no organization name (no phone) 06-02-2017 Patient encounter no information no name (no phone) no organization name (no phone) 12-09-2016 Patient encounter no information no name (no phone) no organization name - (no phone) 12-16-2016 07-20-2016 Patient encounter no information no name (no phone) no organization name - (no phone) 08-19-2016 02-11-2016 Patient encounter no information no name (no phone) no organization name (no phone) 11-06-2014 Patient encounter no information no name (no phone) no organization name - (no phone) 11-06-2014 05-13-2014 Patient encounter no information no name (no phone) no organization name (no phone) 04-30-2014 Patient encounter no information no name (no phone) no organization name (no phone) 01-23-2020 Patient encounter no information (no phone) [facility] procedure [facility] (no phone) 01-22-2020 Patient encounter no information [facility] HURTADO (no [facility] phone) (no phone) [facility] (no phone) 01-01-2020 Patient encounter no information [facility] (no phon e) [facility] - procedure [facility] (no 01-01-2020 phone) 11-09-2019 Patient encounter no information no name (no phone) no organization name procedure (no phone) 10-10-2019 Patient encounter no information no name (no phone) no organization name - procedure (no phone) 10-10-2019 09-06-2019 Patient encounter no information no name (no phone) no organization name procedure (no phone) 07-18-2019 Patient encounter no information no name (no phone) no organization name procedure (no phone) 06-08-2019 Patient encounter no information no name (no phone) no organization name procedure (no phone) 02-06-2019 Patient encounter no information no name (no phone) no organization name - procedure (no phone) 02-06-2019 01-30-2019 Patient encounter no information AISHWARYA LE Wor k no organization name procedure (no phone) 11-08-2018 Patient encounter no information no name (no phone) no organization name procedure (no phone) 07-12-2017 Patient encounter no information no name (no phone) no organization name - procedure (no phone) 07-12-2017 07-07-2017 Patient encounter no information no name (no phone) no organization name - procedure (no phone) 07-07-2017 06-30-2017 Patient encounter no information no name (no phone) no organization name - procedure (no phone) 06-30-2017 06-24-2017 Patient encounter no information no name (no phone) no organization name - procedure (no phone) 06-25-2017 12-06-2016 Patient encounter no information no name (no phone) no organization name procedure (no phone) 11-25-2016 Patient encounter no information no name (no phone) no organization name procedure (no phone) no information Encounter for other no name (no phone) no org anization name preprocedural (no phone) examination no information Pre-operative no name (no phone) no organiza tion name examination, (no phone) unspecified Medical Equipment Equipment Code (if Equipment Original Equipment Identifier P rocedure Code (if Dates provided) Text (if provided) (if provided) provided) no information as directed no information (no no information 1 named assigning authority) Payers Normalized Payer Value Unknown [id number] ([id number]) Private Health Insurance no information Medicare no information History general Narrative - Reported Note Type Note Facility History general Narrative - Reported Type Medical testicular cancer History Medical type II diabetes History Medical hypertension History Medical depression History Medical Nicotine Dependence, cigare ttes History Medical Cannabis use History Medical Parkinson's Disease History 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 Medical COPD History Medical spinal stenosis, cervical r egion History Medical dorsalgia History Medical Major Depressive Disorder History Medical Anxiety History Medical IBS History Medical Post-Traumatic Stress Disor dilma History Medical Personality disorder History Medical Hyperlipidemia History Medical primary osteoarthritis History Medical heart murmur History Medical parkinson History Surgical cholecystectomy 2000 History Surgical orchiectomy (R) r/t cancer History Surgical full mouth extraction History Surgical appendectomy 1969 History Surgical carpal tunnel 2017 History Surgical Back surgery to remove cyst -01/2018 History Hospitaliz surgery ation History Hospitaliz [facility]- Right Leg Marla n 09/21/2017 ation History Hospitaliz [facility]- Severe Dehydration with Acute Renal Failure 05/06/2018 ation History Hospitaliz Back surgery to remove cyst/ infection -01/2018 ation History [facility] ([id number]) History general Narrative - Reported Note Type Note Facility History general Narrative - Reported Type Medical testicular cancer History Medical type II diabetes History Medical hypertension History Medical depression History Medical Nicotine Dependence, cigare ttes History Medical Cannabis use History Medical Parkinson's Disease History 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 Medical COPD History Medical spinal stenosis, cervical r egion History Medical dorsalgia History Medical Major Depressive Disorder History Medical Anxiety History Medical IBS History Medical Post-Traumatic Stress Disor dilma History Medical Personality disorder History Medical Hyperlipidemia History Medical primary osteoarthritis History Medical heart murmur History Medical parkinson History Surgical cholecystectomy 2000 History Surgical orchiectomy (R) r/t cancer History Surgical full mouth extraction History Surgical appendectomy 1969 History Surgical carpal tunnel right wrist 2017 History Surgical Back surgery to remove cyst History Hospitaliz surgery ation History Hospitaliz [facility]- Right Leg Marla n 09/21/2017 ation History Hospitaliz [facility]- Severe Dehydration with Acute Renal Failure 05/06/2018 ation History Hospitaliz Back surgery to remove cyst/ infection ation History [facility] ([id number]) Summary Purpose eClinicalWorks SubmissioneClinicalWorks SubmissioneClinicalWorks SubmissioneClinicalWorks SubmissioneClinicalWorks SubmissioneClinicalWorks SubmissioneClinicalWorks SubmissioneClinicalWorks Submission Advance Directives Directive Response Recor ded Date/Time Advance Directives No 8:57am Health Care Power of Replanting Machine Operator No 07/23/16 8:57am Organ Donor No 07/23/16 8:57am Resuscitation Status Full Code 07/23/16 8:57am Directive Response Recor ded Date/Time Advance Directives No 11:14am Health Care Power of Replanting Machine Operator No 12/10/16 11:14am Organ Donor No 12/10/16 11:14am Resuscitation Status Full Code 12/10/16 11:14am Directive Response Recor ded Date/Time Advance Directives No 10:30am Health Care Power of Replanting Machine Operator No 11/06/14 10:30am Organ Donor No 11/06/14 10:30am Resuscitation Status Full Code 11/06/14 10:30am Directive Response Recor ded Date/Time Advance Directives No 9:06pm Health Care Power of Replanting Machine Operator No 05/04/18 9:06pm Organ Donor No 05/04/18 9:06pm Resuscitation Status Full Code 05/04/18 9:06pm Directive Response Recor ded Date/Time Advance Directives No 1:34pm Health Care Power of Replanting Machine Operator No 02/06/19 1:34pm Organ Donor No 02/06/19 1:34pm Resuscitation Status Full Code 02/06/19 1:34pm Discharge Instructions No hospital discharge instructions.No hospital discharge instructions.No hospital discharge instructions.No hospital discharge instructions.No hospital discharge instructions.No hospital discharge instruction information available.No hospital discharge instruction information available. Additional Source Comments This clinical document has been generated using [employer] software that has been certified by the Office of the National Coordinator for Health Information Technology (ONC 15.99.04.3023.Diam.31.00.0.880565) and the National Committee for Boiler Plant Operator (NCQA, as an eMeasure certified technology). FOR RECORDS PERTAINING TO PATIENTS WHO ARE OR HAVE BEEN ENROLLED IN A CHEMICAL D EPENDENCY/SUBSTANCE ABUSE PROGRAM, SOME INFORMATION MAY BE OMITTED. This clinica l summary was aggregated from multiple sources. Caution should be exercised in using it in the provision of clinical care. This summary normalizes information from multiple sources, and as a consequence, information in this document may ma terially change the coding, format and clinical context of patient data. In leonard tion, data may be omitted in some cases. CLINICAL DECISIONS SHOULD BE BASED ON T HE PRIMARY CLINICAL RECORDS. [employer] provides no warranty or guara ntee of the accuracy or completeness of information in this document.The followi ng information is based on time limited clinical information UNRECOGNIZED CONTENT PROVIDED BELOW FOR UNRECOGNIZED SECTION MEDICAL (GENERAL) HISTORY Type Description Date Medical History testicular cancer Medical History type II diabetes Medical History Arthritis Medical History hypertension Medical History depression Surgical History cholecystectomy 1999 Surgical History orchiectomy (R) r/t cance r Surgical History full mouth extraction Surgical History appendectomy 1969 Surgical History carpal tunnel 2016 Hospitalization History surgery Type Description Date Medical History testicular cancer Medical History type II diabetes Medical History hypertension Medical History depression Medical History Nicotine Dependence, cigarettes Medical History Cannabis use Medical History Parkinson's Disease Medical History 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 Medical History COPD Medical History spinal stenosis, cer vical region Medical History dorsalgia Medical History Major Depressive Disorder Medical History Anxiety Medical History IBS Medical History Post-Traumatic Stres s Disorder Medical History Personality disorder Medical History Hyperlipidemia Medical History primary osteoarthritis Medical History heart murmur Surgical History cholecystectomy 1999 Surgical History orchiectomy (R) r/t cance r Surgical History full mouth extraction Surgical History appendectomy 1969 Surgical History carpal tunnel 2016 Surgical History Back surgery to rem ove cyst Hospitalization History surgery Hospitalization History [facility]- Right Leg Pain 09/21/2017 Hospitalization History [facility]- Severe Dehydration with Acute Renal Failure 05/06/2018 Hospitalization History Back surgery to remove cyst/ infection Type Description Date Medical History testicular cancer Medical History type II diabetes Medical History hypertension Medical History depression Medical History Nicotine Dependence, cigarettes Medical History Cannabis use Medical History Parkinson's Disease Medical History 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 Medical History COPD Medical History spinal stenosis, cer vical region Medical History dorsalgia Medical History Major Depressive Disorder Medical History Anxiety Medical History IBS Medical History Post-Traumatic Stres s Disorder Medical History Personality disorder Medical History Hyperlipidemia Medical History primary osteoarthritis Medical History heart murmur Medical History parkinson Surgical History cholecystectomy 1999 Surgical History orchiectomy (R) r/t cance r Surgical History full mouth extraction Surgical History appendectomy 1969 Surgical History carpal tunnel 2016 Surgical History Back surgery to rem ove cyst Hospitalization History surgery Hospitalization History [facility]- Right Leg Pain 09/21/2017 Hospitalization History [facility]- Severe Dehydration with Acute Renal Failure 05/06/2018 Hospitalization History Back surgery to remove cyst/ infection UNRECOGNIZED CONTENT PROVIDED BELOW FOR UNRECOGNIZED SECTION REASON FOR VISIT [facility]-NATALIE Abdul, still feeling a little light headed w hen he stands upNormal lab letter mailedRefill requestmedication refillCHM-twoodalis en,RMA, pt want to discuss his anxeity that he is having Crisis- Intake GEOFF-Gerald COLLIER-Nico
--- OUTSIDE RECORDS SUMMARY | 2020-03-23 00:54 | XMS REPORT ---
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 coronary artery without angina pectoris I25.10 Active 245621936 Problem Parkinsons disease G20 Active 4 4171156 Problem Cervical stenosis of spine M48.02 Act cynthia 67685328 Problem Lumbar spondylosis M47.816 Active 2 59039291 Problem Recurrent major depressive disorder, in full remission F33.42 Active 374846840 Problem Cannabis abuse F12.10 Active 21391 009 Problem Parkinson disease G20 Active 49 982262 Problem 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 Active 510953916 Problem Carpal tunnel syndrome of right wrist G56.01 Active 96153934 Problem Hypercholesterolemia E78.0 Active 96362190 Problem Generalized anxiety disorder F41.1 A ctive 55422985 Problem Panic F41.0 Active 00572923 Problem Carpal tunnel syndrome, right G56.01 Active [id number] Problem Current mild episode of major depressive disorder without prior episode F32.0 Active 23921735 ALLERGIES No Information ENCOUNTERS Encounter Location Date Diagnosis [facility] [address] [facility] [id number] [address] [place] [address] Apr, [facility] [address] [facility] [id number] [address] [place] [address] Apr, [facility] [address] [place] [id number] [address] [place] [address] 29 Feb, 2020 Acute bilateral low back maximino n without sciatica M54.5 ; Other chronic pain G89.29 and Cervical stenosis of spine M48.02 [facility] [address] [place] [id number] [address] [place] [address] 28 Feb, 2020 [facility] [address] [place] [id number] [address] [place] [address] 20 Feb, 2020 Carpal tunnel syndrome of ri ght wrist G56.01 [place] [address] [place] [id number] [place] [address] 15 Feb, 2020 Type 2 diabetes mellitus wit h other specified complication E11.69 [place] [address] [address] 25 Jan, 2020 Type 2 diabetes mellitus wit h other specified complication E11.69 [place] [address] [address] 04 Jan, 2020 Type 2 diabetes mellitus wit h other specified complication E11.69 ; HTN (hypertension) I10 and Screening for prostate cancer Z12.5 [place] [address] [address] 03 Jan, 2020 [place] [address] [address] 03 Jan, 2020 Type 2 diabetes mellitus wit h other specified complication E11.69 ; Parkinsons disease G20 ; Recurrent major depressive disorder, in full remission F33.42 ; Encounter for immunization Z23 ; Callus L84 ; HTN (hypertension) I10 and Screening for prostate cancer Z12.5 [place] [address] [place] [id number] [place] [address] Oct, Cellulitis of toe of left fo ot L03.032 [place] [address] [place] [id number] [address] [place] [address] Aug, Carpal tunnel syndrome, righ t G56.01 [place] [address] [place] [id number] [place] [address] Aug, Wrist pain, right M25.531 ; Parkinson disease G20 and Current mild episode of major depressive disorder without prior episode F32.0 [facility] [address] [facility] [id number] [address] [place] [address] Jun, Carpal tunnel syndrome, righ t G56.[address] [id number] [address] May, Parkinsons disease G20 ; Hyp ercholesterolemia E78.0 and HTN (hypertension) I10 [facility] [address] [facility] [id number] [address] [place] [address] May, Tenosynovitis, Hollis M 65.4 ; Type 2 diabetes mellitus with other specified complication E11.69 ; Lumbar spondylosis M47.816 and HTN (hypertension) I10 [facility] [address] [place] [id number] [address] [place] [address] March, [address] [id number] [address] Jan, [facility] [address] [place] [id number] [address] [place] [address] Dec, Hypercholesterolemia E78.0 [facility] [address] [facility] [id number] [address] [place] [address] Nov, HTN (hypertension) I10 [facility] [address] [facility] [id number] [address] [place] [address] Oct, Generalized anxiety disorder F41.1 and Panic F41.0 [facility] [address] [facility] [id number] [address] [place] [address] Oct, Generalized anxiety disorder F41.1 and Panic F41.0 [facility] [address] [facility] [id number] [address] [place] [address] Aug, Cervicalgia M54.2 [facility] [address] [place] [id number] [place] [address] Aug, Type 2 diabetes mellitus wit h other specified complication E11.69 ; HTN (hypertension) I10 ; Parkinsons disease G20 ; Atherosclerotic heart disease of [place] coronary artery without angina pectoris I25.10 ; Hypercholesterolemia E78.0 and Cervical stenosis of spine M48.02 [place] [address] [address] Aug, Type 2 diabetes mellitus wit h other specified complication E11.69 [place] [address] [address] May, [place] [address] [address] Apr, [place] [address] [address] Apr, Dehydration E86.0 ; Acute re nal failure, unspecified acute renal failure type N17.9 ; Cannabis abuse F12.10 ; Type 2 diabetes mellitus with other specified complication E11.69 ; HTN (hypertension) I10 ; Parkinsons disease G20 ; Hypercholesterolemia E78.0 ; Atherosclerotic heart disease of [place] coronary artery without angina pectoris I25.10 ; Cervicalgia M54.2 ; Need for hepatitis C screening test Z11.59 and Recurrent major depressive disorder, in full remission F33.42 [place] [address] [address] Apr, [place] [address] [address] Apr, Dehydration E86.0 ; Hypotens ion, unspecified hypotension type I95.9 ; Fall, initial encounter W19.XXXA ; Acute head injury without loss of consciousness, initial encounter S09.90XA ; Type 2 diabetes mellitus with other specified complication E11.69 ; HTN (hypertension) I10 and Parkinsons disease G20 [place] [address] [address] Apr, [place] [address] [address] Apr, [facility] [address] [id number] [address] [place] [address] Feb, Cervicalgia M54.2 [facility] [address] [id number] [address] [place] [address] Feb, Cervical stenosis of spine M 48.02 [facility] [address] [facility] [id number] [address] [place] [address] Jan, Cervicalgia M54.2 [facility] [address] [facility] [id number] [address] [place] [address] Jan, Acute right-sided low back p ain with right-sided sciatica M54.41 [facility] [address] [facility] [id number] [address] [place] [address] Dec, Cervicalgia M54.2 [facility] [address] [facility] [id number] [address] [place] [address] Dec, Controlled substance agreeme nt signed Z79.899 [facility] [address] [facility] [id number] [address] [place] [address] Oct, Cervicalgia M54.2 [facility] [address] [facility] [id number] [address] [place] [address] Oct, Acute right-sided low back p ain with right-sided sciatica M54.41 [facility] [address] [facility] [id number] [address] [place] [address] Oct, [facility] [address] [facility] [id number] [address] [place] [address] Sep, Cervicalgia M54.2 [facility] [address] [facility] [id number] [address] [place] [address] 14 Sep, 2017 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 [facility] [address] [facility] [id number] [address] [place] [address] Sep, Lumbar back pain with radicu lopathy affecting right lower extremity M54.17 [facility] [address] [id number] [address] [place] [address] 03 Sep, 2017 Acute right-sided low back p ain with right-sided sciatica M54.41 [facility] [address] [id number] [address] [place] [address] Aug, Type 2 diabetes mellitus wit h other specified complication E11.69 ; HTN (hypertension) I10 ; Cervicalgia M54.2 ; Cervical stenosis of spine M48.02 ; Acute right hip pain M25.551 ; Atherosclerotic heart disease of [place] coronary artery without angina pectoris I25.10 ; Hypercholesterolemia E78.0 ; Parkinsons disease G20 and Depression F32.9 [place] [address] [id number] [address] [place] [address] Aug, Other chronic pain G89.29 [place] [address] [id number] [address] [place] [address] Jul, Other chronic pain G89.29 [facility] [address] [id number] [address] [place] [address] Jul, [facility] [address] [id number] [address] [place] [address] Jul, Cough R05 and Bronchitis J40 [facility] [address] [id number] [address] [place] [address] Jun, Other chronic pain G89.29 [facility] [address] [id number] [address] [place] [address] Jun, [place] [address] [id number] [address] [place] [address] Jun, Atherosclerotic heart diseas e of [place] coronary artery without angina pectoris I25.10 and Cervicalgia M54.2 [facility] [address] [id number] [address] [place] [address] Jun, Cervicalgia M54.2 [place] [address] [id number] [address] [place] [address] May, Other chronic pain G89.29 [facility] [address] [facility] [id number] [address] [place] [address] May, [facility] [address] [facility] [id number] [address] [place] [address] May, [facility] [address] [facility] [id number] [address] [place] [address] May, [facility] [address] [facility] [id number] [address] [place] [address] May, [facility] [address] [facility] [id number] [address] [place] [address] May, Type 2 diabetes mellitus wit h other specified complication E11.69 ; HTN (hypertension) I10 ; Atherosclerotic heart disease of [place] coronary artery without angina pectoris I25.10 ; Parkinsons disease G20 and Cervical stenosis of spine M48.02 [facility] [address] [facility] [id number] [address] [place] [address] Apr, Cervicalgia M54.2 [facility] [address] [facility] [id number] [address] [place] [address] Apr, Type 2 diabetes mellitus wit h other specified complication E11.69 ; HTN (hypertension) I10 ; Depression F32.9 ; Atherosclerotic heart disease of [place] coronary artery without angina pectoris I25.10 ; Coronary atherosclerosis due to lipid rich plaque I25.83 ; Cervicalgia M54.2 ; Parkinsons disease G20 ; Chronic diarrhea K52.9 and Pure hypercholesterolemia E78.00 [facility] [address] [facility] [id number] [address] [place] [address] March, Other chronic pain G89.29 [facility] [address] [facility] [id number] [address] [place] [address] March, Other chronic pain G89.29 [facility] [address] [facility] [id number] [address] [place] [address] Feb, Cervical stenosis of spine M 48.02 [facility] [address] [facility] [id number] [address] [place] [address] Feb, Other chronic pain G89.29 [facility] [address] [facility] [id number] [address] [place] [address] Jan, [facility] [address] [facility] [id number] [address] [place] [address] Jan, Other chronic pain G89.29 [facility] [address] [facility] [id number] [address] [place] [address] Jan, Other chronic pain G89.29 [facility] [address] [facility] [id number] [address] [place] [address] Jan, Type 2 diabetes mellitus wit h other specified complication E11.69 ; Atherosclerotic heart disease of [place] coronary artery without angina pectoris I25.10 ; Anxiety F41.9 ; HTN (hypertension) I10 ; Depression F32.9 ; Coronary atherosclerosis due to lipid rich plaque I25.83 ; Cervicalgia M54.2 ; Other chronic pain G89.29 and Functional 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 [facility] [address] [facility] [id number] [address] [place] [address] Nov, HTN (hypertension) I10 [facility] [address] [facility] [id number] [address] [place] [address] 03 Nov, 2016 Type 2 diabetes mellitus wit h other specified complication E11.69 ; Atherosclerotic heart disease of [place] coronary artery without angina pectoris I25.10 ; Hypercholesterolemia E78.0 ; Anxiety F41.9 ; Depression F32.9 ; Cervicalgia M54.2 and Functional 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 [facility] [address] [facility] [id number] [address] [place] [address] Oct, [facility] [address] [facility] [id number] [address] [place] [address] Oct, Neck pain M54.2 [facility] [address] [place] [id number] [address] [place] [address] Sep, [facility] [address] [id number] [address] [place] [address] Aug, [facility] [address] [id number] [address] [place] [address] Aug, [facility] [address] [facility] [id number] [address] [place] [address] Jul, Visit for TB skin test Z11.1 and Screening for tuberculosis Z11.1 [facility] [address] [id number] [address] [place] [address] May, [facility] [address] [id number] [address] [place] [address] May, Neck pain M54.2 [facility] [address] [facility] [id number] [address] [place] [address] May, [facility] [address] [id number] [address] [place] [address] Apr, Neck pain M54.2 [facility] [address] [id number] [address] [place] [address] Feb, Neck pain M54.2 [facility] [address] [id number] [address] [place] [address] Feb, [facility] [address] [id number] [address] [place] [address] Jan, Neck pain M54.2 [facility] [address] [id number] [address] [place] [address] Jan, [facility] [address] [id number] [address] [place] [address] 16 Jan, 2016 Neck pain M54.2 [facility] [address] [facility] [id number] [address] [place] [address] 08 Jan, 2016 Neck pain M54.2 ; Type 2 sarath betes mellitus with other specified complication E11.69 ; CAD (coronary artery disease) 414.00 ; Insomnia 780.52 ; Anxiety F41.9 ; Depression F32.9 ; Pre-ulcerative calluses L84 and Hypercholesterolemia E78.0 [place] [address] [address] Nov, [place] [address] [address] Nov, Type 2 diabetes mellitus wit h other specified complication E11.69 ; Pre-ulcerative calluses L84 ; HTN (hypertension) I10 ; Hypercholesterolemia E78.0 ; Anxiety F41.9 ; Depression F32.9 ; Environmental allergies Z91.09 and Osteoarthritis M19.[address] [address] Sep, [address] [address] Aug, Allergic rhinitis, seasonal J30.[address] [address] Jul, [place] [address] [address] Jul, Other specified cardiac dysr hythmias 427.89 ; Essential hypertension, benign 401.1 ; Nondependent tobacco use disorder 305.1 ; Unspecified hereditary and idiopathic peripheral neuropathy 356.9 ; Diabetes mellitus without mention of complication, type II or unspecified type, not stated as uncontrolled 250.00 ; CAD (coronary artery disease) 414.00 ; Insomnia 780.52 and Depression 311 [place] [address] [address] Jul, [place] [address] [address] Jul, [place] [address] [address] May, [place] [address] [address] May, [facility] [address] [id number] [address] [place] [address], [place] [address] May, [facility] [address] [id number] [address] [place] [address], [place] [address] Apr, [facility] [address] [id number] [address] [place] [address], [place] [address] Apr, Skin lesion of face 709.9 an d Anxiety 300.00 [facility] [address] [id number] [address] [place] [address], [place] [address] March, [facility] [address] [id number] [address] [place] [address], [place] [address] Feb, [facility] [address] [id number] [address] [place] [address], [place] [address] Feb, [facility] [address] [id number] [address] [place] [address], [place] [address] Jan, [facility] [address] [id number] [address] [place] [address], [place] [address] Jan, [facility] [address] [id number] [address] [place] [address], [place] [address] Jan, [facility] [address] [id number] [address] [place] [address], [place] [address] Jan, [facility] [address] [id number] [address] [place] [address], [place] [address] Jan, [facility] [address] [id number] [address] [place] [address], [place] [address] Jan, [facility] [address] [id number] [address] [place] [address], [place] [address] Dec, [facility] [address] [id number] [address] [place] [address], [place] [address] Dec, [facility] [address] [id number] [address] [place] [address], [place] [address] Nov, [facility] [address] [id number] [address] [place] [address], [place] [address] Nov, [facility] [address] [id number] [address] [place] [address], [place] [address] Oct, [facility] [address] [id number] [address] [place] [address], [place] [address] Oct, [facility] [address] [id number] [address] [place] [address], [place] [address] Oct, [facility] [address] [id number] [address] [place] [address], [place] [address] Oct, [facility] [address] [id number] [address] [place] [address], [place] [address] Sep, [facility] [address] [id number] [address] [place] [address], [place] [address] Sep, [facility] [address] [id number] [address] [place] [address], [place] [address] Sep, [facility] [address] [id number] [address] [place] [address], [place] [address] Sep, [facility] [address] [id number] [address] [place] [address], [place] [address] Sep, [facility] [address] [id number] [address] [place] [address], [place] [address] Sep, [facility] [address] [id number] [address] [place] [address], [place] [address] Aug, [facility] [address] [id number] [address] [place] [address], [place] [address] Aug, [facility] [address] [id number] [address] [place] [address], [place] [address] Aug, [facility] [address] [id number] [address] [place] [address], [place] [address] Aug, [facility] [address] [id number] [address] [place] [address], [place] [address] Aug, [facility] [address] [id number] [address] [place] [address], [place] [address] Aug, [facility] [address] [id number] [address] [place] [address], [place] [address] Aug, [facility] [address] [id number] [address] [place] [address], [place] [address] Aug, [facility] [address] [id number] [address] [place] [address], [place] [address] Aug, [facility] [address] [id number] [address] [place] [address], [place] [address] Aug, [facility] [address] [id number] [address] [place] [address], [place] [address] Jul, [facility] [address] [id number] [address] [place] [address], [place] [address] Jul, [facility] [address] [id number] [address] [place] [address], [place] [address] May, [facility] [address] [id number] [address] [place] [address], [place] [address] May, [facility] [address] [id number] [address] [place] [address], [place] [address] May, [facility] [address] [id number] [address] [place] [address], [place] [address] May, [facility] [address] [id number] [address] [place] [address], [place] [address] May, [facility] [address] [id number] [address] [place] [address], [place] [address] May, [facility] [address] [id number] [address] [place] [address], [place] [address] Apr, [facility] [address] [id number] [address] [place] [address], [place] [address] Apr, [facility] [address] [id number] [address] [place] [address], [place] [address] Apr, [facility] [address] [id number] [address] [place] [address], [place] [address] Apr, [facility] [address] [id number] [address] [place] [address], [place] [address] March, [facility] [address] [id number] [address] [place] [address], [place] [address] March, [facility] [address] [id number] [address] [place] [address], [place] [address] Feb, [facility] [address] [id number] [address] [place] [address], [place] [address] Feb, [facility] [address] [id number] [address] [place] [address], [place] [address] Jan, [facility] [address] [id number] [address] [place] [address], [place] [address] Jan, [facility] [address] [id number] [address] [place] [address], [place] [address] Nov, [facility] [address] [id number] [address] [place] [address], [place] [address] Nov, [facility] [address] [id number] [address] [place] [address], [place] [address] Nov, [facility] [address] [id number] [address] [place] [address], [place] [address] Nov, [facility] [address] [id number] [address] [place] [address], [place] [address] Nov, [facility] [address] [id number] [address] [place] [address], [place] [id number] Nov, [facility] [address] [id number] [address] [place] [address], [place] [address] Oct, [facility] [address] [id number] [address] [place] [address], [place] [address] Oct, [facility] [address] [id number] [address] [place] [id number] Aug, [facility] [address] [id number] [address] [place] [phone] Aug, [facility] [address] [id number] [address] [place] [id number] Jul, [facility] [address] [id number] [address] [place] [phone] Jun, [facility] [address] [id number] [address] [place] [phone] Jun, [facility] [address] [id number] [address] [place] [phone] Jun, [facility] [address] [id number] [address] [place] [phone] Jun, [facility] [address] [id number] [address] [place] [phone] Jun, [facility] [address] [id number] [address] [place] [phone] Jun, [facility] [address] [id number] [address] [place] [phone] May, [facility] [address] [id number] [address] [place] [phone] March, [facility] [address] [id number] [address] [place] [phone] March, [facility] [address] [id number] [address] [place] [phone] Jan, IMMUNIZATIONS No Known Immunizations SOCIAL HISTORY Never Assessed REASON FOR VISIT PLAN OF CARE VITAL SIGNS Height 66 in 2014-10-15 Weight 180.5 lbs 2014-10-15 Temperature 98.3 degrees Fahrenheit 2014-10-15 Heart Rate 64 bpm 2014-10-15 Respiratory Rate 16 2014-10-15 Blood pressure systolic 128 mmHg 2014-10-15 Blood pressure diastolic 70 mmHg 2014-10-15 MEDICATIONS Unknown Medications RESULTS No Results PROCEDURES Procedure Date Ordered Result Body Site CT ABDOMEN W/DYE Oct 15, 2014 CT THORAX W/DYE Oct 15, 2014 INSTRUCTIONS MEDICATIONS ADMINISTERED No Known Medications MEDICAL (GENERAL) HISTORY Type Description Date Medical History testicular cancer Medical History type II diabetes Medical History hypertension Medical History depression Medical History Nicotine Dependence, cigarettes Medical History Cannabis use Medical History Parkinson's Disease Medical History 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 Medical History COPD Medical History spinal stenosis, cervical region Medical History dorsalgia Medical History Major Depressive Disorder Medical History Anxiety Medical History IBS Medical History Post-Traumatic Stress Disorder Medical History Personality disorder Medical History Hyperlipidemia Medical History primary osteoarthritis Medical History heart murmur Medical History parkinson Surgical History cholecystectomy 1999 Surgical History orchiectomy (R) r/t cancer Surgical History full mouth extraction Surgical History appendectomy 1968 Surgical History carpal tunnel right wrist 2016 Surgical History Back surgery to remove cyst Hospitalization History surgery Hospitalization History Via [facility]- Right Leg Pain 09/21/2017 Hospitalization History [facility]- Severe Dehydr ation with Acute Renal Failure 05/06/2018 Hospitalization History Back surgery to remove cyst/ infecti on
--- OUTSIDE RECORDS SUMMARY | 2020-03-23 00:54 | XMS REPORT ---
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 Active 335477632 Problem Cervicalgia M54.2 Active 27807242 9986405 Problem Cervical stenosis of spine M48.02 Act cynthia 54403734 Problem Other chronic pain G89.29 Active 8 8747096 Problem 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 Active 482185385 Problem Lumbar spondylosis M47.816 Active 2 23800219 Problem Recurrent major depressive disorder, in full remission F33.42 Active 578660083 Problem Current mild episode of major depressive disorder without prior episode F32.0 Active 71723582 Problem Hypercholesterolemia E78.0 Active 25223792 Problem Parkinson disease G20 Active 49 572682 Problem Parkinsons disease G20 Active 4 9726565 Problem Cannabis abuse F12.10 Active 83457 009 Problem Generalized anxiety disorder F41.1 A ctive 34063001 Problem Panic F41.0 Active 94680747 Problem Carpal tunnel syndrome, right G56.01 Active [id number] ALLERGIES No Information ENCOUNTERS Encounter Location Date Diagnosis [facility] [address] [facility] [id number] [address] [place] [address] Apr, [facility] [address] [facility] [id number] [address] [place] [address] Feb, Type 2 diabetes mellitus wit h other specified complication E11.69 [facility] [address] [facility] [id number] [address] [place] [address] 25 Jan, 2020 Type 2 diabetes mellitus wit h other specified complication E11.69 [place] [address] [place] [id number] [address] [place] [id number] 04 Jan, 2020 Type 2 diabetes mellitus wit h other specified complication E11.69 ; HTN (hypertension) I10 and Screening for prostate cancer Z12.5 [place] [address] [place] [id number] [address] [place] [id number] 03 Jan, 2020 [place] [address] [facility] [id number] [address] [place] [phone] 03 Jan, 2020 Type 2 diabetes mellitus wit h other specified complication E11.69 ; Parkinsons disease G20 ; Recurrent major depressive disorder, in full remission F33.42 ; Encounter for immunization Z23 ; Callus L84 ; HTN (hypertension) I10 and Screening for prostate cancer Z12.5 [place] [address] [place] [id number] [address] [place] [address] 20 Oct, 2019 Cellulitis of toe of left fo ot L03.032 [place] [address] [place] [id number] [address] [place] [address] Aug, Carpal tunnel syndrome, righ t G56.01 [place] [address] [place] [id number] [address] [place] [address] Aug, Wrist pain, right M25.531 ; Parkinson disease G20 and Current mild episode of major depressive disorder without prior episode F32.0 [place] [address] [place] [id number] [address] [place] [address] Jun, Carpal tunnel syndrome, righ t G56.[address] [id number] [address] May, Parkinsons disease G20 ; Hyp ercholesterolemia E78.0 and HTN (hypertension) I10 [place] [address] [facility] [id number] [address] [place] [address] May, Tenosynovitis, de Quervain M 65.4 ; Type 2 diabetes mellitus with other specified complication E11.69 ; Lumbar spondylosis M47.816 and HTN (hypertension) I10 [facility] [address] [facility] [id number] [address] [place] [address] March, [facility] [address] [id number] [address] Jan, [facility] [address] [facility] [id number] [address] [place] [address] Dec, Hypercholesterolemia E78.0 [facility] [address] [facility] [id number] [address] [place] [address] Nov, HTN (hypertension) I10 [facility] [address] [facility] [id number] [address] [place] [address] Oct, Generalized anxiety disorder F41.1 and Panic F41.0 [place] [address] [facility] [id number] [address] [place] [address] Oct, Generalized anxiety disorder F41.1 and Panic F41.0 [facility] [address] [facility] [id number] [address] [place] [address] Aug, Cervicalgia M54.2 [facility] [address] [facility] [id number] [address] [place] [address] Aug, Type 2 diabetes mellitus wit h other specified complication E11.69 ; HTN (hypertension) I10 ; Parkinsons disease G20 ; 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 ; Hypercholesterolemia E78.0 and Cervical stenosis of spine M48.02 [facility] [address] [facility] [id number] [address] [place] [address] Aug, Type 2 diabetes mellitus wit h other specified complication E11.69 [facility] [address] [facility] [id number] [address] [place] [address] May, [facility] [address] [facility] [id number] [address] [place] [phone] Apr, [facility] [address] [place] [id number] [address] [place] [address] 22 Apr, 2018 Dehydration E86.0 ; Acute re nal failure, unspecified acute renal failure type N17.9 ; Cannabis abuse F12.10 ; Type 2 diabetes mellitus with other specified complication E11.69 ; HTN (hypertension) I10 ; Parkinsons disease G20 ; Hypercholesterolemia E78.0 ; 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 ; Cervicalgia M54.2 ; Need for hepatitis C screening test Z11.59 and Recurrent major depressive disorder, in full remission F33.42 [place] [address] [place] [id number] [address] [place] [address] 18 Apr, 2018 [place] [address] [place] [id number] [place] [address] 14 Apr, 2018 Dehydration E86.0 ; Hypotens ion, unspecified hypotension type I95.9 ; Fall, initial encounter W19.XXXA ; Acute head injury without loss of consciousness, initial encounter S09.90XA ; Type 2 diabetes mellitus with other specified complication E11.69 ; HTN (hypertension) I10 and Parkinsons disease G20 [place] [address] [place] [id number] [address] [place] [address] Apr, [place] [address] [address] 12 Apr, 2018 [place] [address] [place] [id number] [address] [place] [address] Feb, Cervicalgia M54.2 [place] [address] [place] [id number] [address] [place] [address] Feb, Cervical stenosis of spine M 48.02 [place] [address] [place] [id number] [address] [place] [address] Jan, Cervicalgia M54.2 [place] [address] [place] [id number] [address] [place] [address] Jan, Acute right-sided low back p ain with right-sided sciatica M54.41 [place] [address] [place] [id number] [address] [place] [address] Dec, Cervicalgia M54.2 [place] [address] [address] Dec, Controlled substance agreeme nt signed Z79.899 [place] [address] [place] [id number] [place] [address] Oct, Cervicalgia M54.2 [place] [address] [place] [id number] [place] [address] Oct, Acute right-sided low back p ain with right-sided sciatica M54.41 [place] [address] [address] Oct, [place] [address] [address] Sep, Cervicalgia M54.2 [place] [address] [address] 14 Sep, 2017 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 [place] [address] [address] 13 Sep, 2017 Lumbar back pain with radicu lopathy affecting right lower extremity M54.17 [place] [address] [place] [id number] [address] [place] [address] Sep, Acute right-sided low back p ain with right-sided sciatica M54.41 [place] [address] [place] [id number] [address] [place] [address] 30 Aug, 2017 Type 2 diabetes mellitus wit h other specified complication E11.69 ; HTN (hypertension) I10 ; Cervicalgia M54.2 ; Cervical stenosis of spine M48.02 ; Acute right hip pain M25.551 ; 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 ; Hypercholesterolemia E78.0 ; Parkinsons disease G20 and Depression F32.9 [place] [address] [id number] [address] [place] [address] Aug, Other chronic pain G89.29 [facility] [address] [id number] [address] [place] [address] Jul, Other chronic pain G89.29 [facility] [address] [id number] [address] [place] [id number] Jul, [facility] [address] [id number] [address] [place] [address] Jul, Cough R05 and Bronchitis J40 [facility] [address] [id number] [address] [place] [address] Jun, Other chronic pain G89.29 [facility] [address] [id number] [address] [place] [address] Jun, [facility] [address] [id number] [address] [place] [address] Jun, 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 and Cervicalgia M54.2 [facility] [address] [id number] [address] [place] [address] Jun, Cervicalgia M54.2 [facility] [address] [id number] [address] [place] [address] May, Other chronic pain G89.29 [facility] [address] [id number] [address] [place] [address] May, [facility] [address] [id number] [address] [place] [address] May, [facility] [address] [id number] [address] [place] [phone] May, [facility] [address] [id number] [address] [place] [address] May, [facility] [address] [id number] [address] [place] [address] May, Type 2 diabetes mellitus wit h other specified complication E11.69 ; HTN (hypertension) I10 ; 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 ; Parkinsons disease G20 and Cervical stenosis of spine M48.02 [facility] [address] [id number] [address] [place] [address] Apr, Cervicalgia M54.2 [place] [address] [id number] [address] [place] [address] Apr, Type 2 diabetes mellitus wit h other specified complication E11.69 ; HTN (hypertension) I10 ; Depression F32.9 ; 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 ; Coronary atherosclerosis due to lipid rich plaque I25.83 ; Cervicalgia M54.2 ; Parkinsons disease G20 ; Chronic diarrhea K52.9 and Pure hypercholesterolemia E78.00 [place] [address] [id number] [address] [place] [address] March, Other chronic pain G89.29 [place] [address] [id number] [address] [place] [address] March, Other chronic pain G89.29 [place] [address] [facility] [id number] [address] [place] [address] Feb, Cervical stenosis of spine M 48.02 [place] [address] [id number] [address] [place] [address] Feb, Other chronic pain G89.29 [place] [address] [id number] [address] [place] [address] Jan, [place] [address] [id number] [address] [place] [address] Jan, Other chronic pain G89.29 [place] [address] [id number] [address] [place] [address] Jan, Other chronic pain G89.29 [place] [address] [facility] [id number] [address] [place] [address] Jan, Type 2 diabetes mellitus wit h other specified complication E11.69 ; 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 ; Anxiety F41.9 ; HTN (hypertension) I10 ; Depression F32.9 ; Coronary atherosclerosis due to lipid rich plaque I25.83 ; Cervicalgia M54.2 ; Other chronic pain G89.29 and Functional 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 [facility] [address] [facility] [id number] [address] [place] [address] Nov, HTN (hypertension) I10 [place] [address] [facility] [id number] [address] [place] [address] Nov, Type 2 diabetes mellitus wit h other specified complication E11.69 ; 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 ; Hypercholesterolemia E78.0 ; Anxiety F41.9 ; Depression F32.9 ; Cervicalgia M54.2 and Functional 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 [facility] [address] [facility] [id number] [address] [place] [phone] Oct, [facility] [address] [id number] [address] [place] [id number] Oct, Neck pain M54.2 [place] [address] [facility] [id number] [address] [place] [address] Sep, [facility] [address] [facility] [id number] [address] [place] [address] Aug, [facility] [address] [facility] [id number] [address] [place] [phone] Aug, [facility] [address] [facility] [id number] [address] [place] [phone] Jul, Visit for TB skin test Z11.1 and Screening for tuberculosis Z11.1 [facility] [address] [facility] [id number] [address] [place] [phone] May, [facility] [address] [facility] [id number] [address] [place] [address] May, Neck pain M54.2 [facility] [address] [facility] [id number] [address] [place] [id number] May, [facility] [address] [facility] [id number] [address] [place] [address] Apr, Neck pain M54.2 [facility] [address] [facility] [id number] [address] [place] [address] Feb, Neck pain M54.2 [facility] [address] [facility] [id number] [address] [place] [id number] Feb, [facility] [address] [facility] [id number] [address] [place] [address] Jan, Neck pain M54.2 [facility] [address] [facility] [id number] [address] [place] [address] Jan, [facility] [address] [place] [id number] [place] [address] Jan, Neck pain M54.2 [facility] [address] [facility] [id number] [address] [place] [address] Jan, Neck pain M54.2 ; Type 2 sarath betes mellitus with other specified complication E11.69 ; CAD (coronary artery disease) 414.00 ; Insomnia 780.52 ; Anxiety F41.9 ; Depression F32.9 ; Pre-ulcerative calluses L84 and Hypercholesterolemia E78.0 [facility] [address] [place] [id number] [address] [place] [address] Nov, [facility] [address] [facility] [id number] [address] [place] [address] Nov, Type 2 diabetes mellitus wit h other specified complication E11.69 ; Pre-ulcerative calluses L84 ; HTN (hypertension) I10 ; Hypercholesterolemia E78.0 ; Anxiety F41.9 ; Depression F32.9 ; Environmental allergies Z91.09 and Osteoarthritis M19.90 [facility] [address] [place] [id number] [address] [place] [address] Sep, [facility] [address] [place] [id number] [address] [place] [phone] Aug, Allergic rhinitis, seasonal J30.2 [facility] [address] [place] [id number] [address] [place] [address] Jul, [facility] [address] [address] Jul, Other specified cardiac dysr hythmias 427.89 ; Essential hypertension, benign 401.1 ; Nondependent tobacco use disorder 305.1 ; Unspecified hereditary and idiopathic peripheral neuropathy 356.9 ; Diabetes mellitus without mention of complication, type II or unspecified type, not stated as uncontrolled 250.00 ; CAD (coronary artery disease) 414.00 ; Insomnia 780.52 and Depression 311 [facility] [address] [place] [id number] [address] [place] [address] Jul, [facility] [address] [id number] Jul, [facility] [address] [address] May, [facility] [address] [address] May, [facility] [address] [place] [id number] [address] [place] [address] May, [facility] [address] [place] [id number] [address] [place] [address] Apr, [facility] [address] [place] [id number] [address] [place] [address] Apr, Skin lesion of face 709.9 an d Anxiety 300.00 [facility] [address] [place] [id number] [address] [place] [address] March, [facility] [address] [place] [id number] [address] [place] [phone] Feb, [facility] [address] [place] [address] 13 Feb, 2015 [facility] [address] [id number] [address] [place] [address], [place] [address] Jan, [facility] [address] [id number] [address] [place] [address], [place] [address] Jan, [facility] [address] [id number] [address] [place] [address], [place] [address] Jan, [facility] [address] [id number] [address] [place] [address], [place] [address] Jan, [facility] [address] [id number] [address] [place] [address], [place] [address] Jan, [facility] [address] [id number] [address] [place] [address], [place] [address] Jan, [facility] [address] [id number] [address] [place] [address], [place] [address] Dec, [facility] [address] [id number] [address] [place] [address], [place] [address] Dec, [facility] [address] [id number] [address] [place] [address], [place] [address] Nov, [facility] [address] [id number] [address] [place] [address], [place] [address] Nov, [facility] [address] [id number] [address] [place] [address], [place] [address] Oct, [facility] [address] [id number] [address] [place] [address], [place] [address] Oct, [facility] [address] [id number] [address] [place] [address], [place] [address] Oct, [facility] [address] [id number] [address] [place] [address], [place] [address] Oct, [facility] [address] [id number] [address] [place] [address], [place] [address] Sep, [facility] [address] [id number] [address] [place] [address], [place] [address] Sep, [facility] [address] [id number] [address] [place] [address], [place] [address] Sep, [facility] [address] [id number] [address] [place] [address], [place] [address] Sep, [facility] [address] [id number] [address] [place] [address], [place] [address] Sep, [facility] [address] [id number] [address] [place] [address], [place] [address] Sep, [facility] [address] [id number] [address] [place] [address], [place] [address] Aug, [facility] [address] [id number] [address] [place] [address], [place] [address] Aug, [facility] [address] [id number] [address] [place] [address], [place] [address] Aug, [facility] [address] [id number] [address] [place] [address], [place] [address] Aug, [facility] [address] [id number] [address] [place] [address], [place] [address] Aug, [facility] [address] [id number] [address] [place] [address], [place] [address] Aug, [facility] [address] [id number] [address] [place] [address], [place] [address] Aug, [facility] [address] [id number] [address] [place] [address], [place] [address] Aug, [facility] [address] [id number] [address] [place] [address], [place] [address] Aug, [facility] [address] [id number] [address] [place] [address], [place] [address] Aug, [facility] [address] [id number] [address] [place] [address], [place] [address] Jul, [facility] [address] [id number] [address] [place] [address], [place] [address] Jul, [facility] [address] [id number] [address] [place] [address], [place] [address] May, [facility] [address] [id number] [address] [place] [address], [place] [address] May, [facility] [address] [id number] [address] [place] [address], [place] [address] May, [facility] [address] [id number] [address] [place] [address], [place] [address] May, [facility] [address] [id number] [address] [place] [address], [place] [address] May, [facility] [address] [id number] [address] [place] [address], [place] [address] May, [facility] [address] [id number] [address] [place] [address], [place] [address] Apr, [facility] [address] [id number] [address] [place] [address], [place] [address] Apr, [facility] [address] [id number] [address] [place] [address], [place] [address] Apr, [facility] [address] [id number] [address] [place] [address], [place] [address] Apr, [facility] [address] [id number] [address] [place] [address], [place] [address] March, [facility] [address] [id number] [address] [place] [address], [place] [address] March, [facility] [address] [id number] [address] [place] [address], [place] [address] Feb, [facility] [address] [id number] [address] [place] [address], [place] [address] Feb, [facility] [address] [id number] [address] [place] [address], [place] [address] Jan, [facility] [address] [id number] [address] [place] [address], [place] [address] Jan, [facility] [address] [id number] [address] [place] [address], [place] [address] Nov, [facility] [address] [id number] [address] [place] [address], [place] [address] Nov, [facility] [address] [id number] [address] [place] [address], [place] [address] Nov, [facility] [address] [id number] [address] [place] [address] [address] Nov, [facility] [address] [id number] [address] [place] [address], [place] [address] Nov, [facility] [address] [id number] [address] [place] [address], [place] [address] Nov, [facility] [address] [id number] [address] [place] [address], [place] [address] Oct, [facility] [address] [id number] [address] [place] [address], [place] [address] Oct, [facility] [address] [id number] [address] [place] [address], [place] [address] Aug, [facility] [address] [id number] [address] [place] [address], [place] [address] Aug, [facility] [address] [id number] [address] [place] [address], [place] [address] Jul, [facility] [address] [id number] [address] [place] [address], [place] [address] Jun, [facility] [address] [id number] [address] [place] [address], [place] [address] Jun, [facility] [address] [id number] [address] [place] [address], [place] [address] Jun, [facility] [address] [id number] [address] [place] [address] Jun, [facility] [address] [id number] [address] [place] [address] Jun, [facility] [address] [id number] [address] [place] [address] Jun, [facility] [address] [id number] [address] [place] [address] May, [facility] [address] [id number] [address] [place] [address] March, [facility] [address] [id number] [address] [place] [address] March, [facility] [address] [facility] [id number] [address] [place] [address] Jan, IMMUNIZATIONS No Known Immunizations SOCIAL HISTORY Never Assessed REASON FOR VISIT PLAN OF CARE VITAL SIGNS MEDICATIONS Unknown [...] appendectomy 1969 Surgical History carpal tunnel 2017 Surgical History Back surgery to remove cyst Hospitalization History surgery Hospitalization History Via [facility]- Right Leg Pain 09/21/2017 Hospitalization History [facility], [place], operated by [facility]- Severe Dehydr ation with Acute Renal Failure 05/06/2018 Hospitalization History Back surgery to remove cyst/ infecti on
--- OUTSIDE RECORDS SUMMARY | 2020-03-23 00:54 | XMS REPORT ---
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 Active 966312144 Problem Cervicalgia M54.2 Active 52507422 7010959 Problem Cervical stenosis of spine M48.02 Act cynthia 95635989 Problem Other chronic pain G89.29 Active 8 0208176 Problem 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 Active 714766705 Problem Lumbar spondylosis M47.816 Active 2 53040372 Problem Recurrent major depressive disorder, in full remission F33.42 Active 980387508 Problem Current mild episode of major depressive disorder without prior episode F32.0 Active 23351563 Problem Hypercholesterolemia E78.0 Active 49532973 Problem Parkinson disease G20 Active 49 041766 Problem Parkinsons disease G20 Active 4 5935939 Problem Cannabis abuse F12.10 Active 70309 009 Problem Generalized anxiety disorder F41.1 A ctive 87481298 Problem Panic F41.0 Active 23868261 Problem Carpal tunnel syndrome, right G56.01 Active [id number] ALLERGIES No Information ENCOUNTERS Encounter Location Date Diagnosis [facility] [id number] [place] [address] Apr, [facility] [id number] [place] [address] Jan, Type 2 diabetes mellitus with other spec ified complication E11.69 ; HTN (hypertension) I10 and Screening for prostate cancer Z12.5 [facility] [address] [address] Jan, [place] [address] [address] Jan, Type 2 diabetes mellitus with other spec ified complication E11.69 ; Parkinsons disease G20 ; Recurrent major depressive disorder, in full remission F33.42 ; Encounter for immunization Z23 ; Callus L84 ; HTN (hypertension) I10 and Screening for prostate cancer Z12.5 [place] [address] [address] Oct, Cellulitis of toe of left foot L03.032 [place] [address] [address] Aug, Carpal tunnel syndrome, right G56.01 [place] [address] [address] Aug, Wrist pain, right M25.531 ; Parkinson di sease G20 and Current mild episode of major depressive disorder without prior episode F32.0 [place] [address] [address] Jun, Carpal tunnel syndrome, right G56.01 [address] [place] [address] May, Parkinsons disease G20 ; Hyp ercholesterolemia E78.0 and HTN (hypertension) I10 [place] [address] [address] May, Tenosynovitis, de Quervain M65.4 ; Type 2 diabetes mellitus with other specified complication E11.69 ; Lumbar spondylosis M47.816 and HTN (hypertension) I10 [place] [address] [address] March, [address] [place] [address] Jan, [place] [address] [address] Dec, Hypercholesterolemia E78.0 [place] [address] [address] Nov, HTN (hypertension) I10 [place] [address] [address] Oct, Generalized anxiety disorder F41.1 and P anic F41.0 [place] [address] [address] Oct, Generalized anxiety disorder F41.1 and P anic F41.0 [place] [address] [address] Aug, Cervicalgia M54.2 [place] [address] [address] Aug, Type 2 diabetes mellitus with other spec ified complication E11.69 ; HTN (hypertension) I10 ; Parkinsons disease G20 ; 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 ; Hypercholesterolemia E78.0 and Cervical stenosis of spine M48.02 [place] [address] [address] Aug, Type 2 diabetes mellitus with other spec ified complication E11.69 [place] [address] [address] May, [place] [address] [address] Apr, [place] [address] [address] Apr, Dehydration E86.0 ; Acute renal failure, unspecified acute renal failure type N17.9 ; Cannabis abuse F12.10 ; Type 2 diabetes mellitus with other specified complication E11.69 ; HTN (hypertension) I10 ; Parkinsons disease G20 ; Hypercholesterolemia E78.0 ; 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 ; Cervicalgia M54.2 ; Need for hepatitis C screening test Z11.59 and Recurrent major depressive disorder, in full remission F33.42 [place] [address] [address] 18 Apr, 2018 [place] [address] [address] 14 Apr, 2018 Dehydration E86.0 ; Hypotension, unspeci fied hypotension type I95.9 ; Fall, initial encounter W19.XXXA ; Acute head injury without loss of consciousness, initial encounter S09.90XA ; Type 2 diabetes mellitus with other specified complication E11.69 ; HTN (hypertension) I10 and Parkinsons disease G20 [place] [address] [address] 14 Apr, 2018 [place] [address] [address] Apr, [place] [address] [address] Feb, Cervicalgia M54.2 [place] [address] [address] Feb, Cervical stenosis of spine M48.02 [place] [address] [address] Jan, Cervicalgia M54.2 [place] [address] [address] Jan, Acute right-sided low back pain with rig ht-sided sciatica M54.41 [place] [address] [address] Dec, Cervicalgia M54.2 [place] [address] [address] Dec, Controlled substance agreement signed Z7 9.899 [place] [address] [address] Oct, Cervicalgia M54.2 [place] [address] [address] Oct, Acute right-sided low back pain with rig ht-sided sciatica M54.41 [place] [address] [address] 04 Oct, 2017 [facility] [address] [address] 28 Sep, 2017 Cervicalgia M54.2 [place] [address] [address] 14 Sep, 2017 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 [place] [address] [address] 13 Sep, 2017 Lumbar back pain with radiculopathy affe cting right lower extremity M54.17 [place] [address] [address] 03 Sep, 2017 Acute right-sided low back pain with rig ht-sided sciatica M54.41 [place] [address] [address] Aug, Type 2 diabetes mellitus with other spec ified complication E11.69 ; HTN (hypertension) I10 ; Cervicalgia M54.2 ; Cervical stenosis of spine M48.02 ; Acute right hip pain M25.551 ; 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 and Cervicalgia M54.2 [facility] [address] [address] Jun, Cervicalgia M54.2 [facility] [address] [address] May, Other chronic pain G89.29 [facility] [address] [address] May, [facility] [address] [address] May, [facility] [address] [address] May, [facility] [address] [address] May, [facility] [address] [address] May, Type 2 diabetes mellitus with other spec ified complication E11.69 ; HTN (hypertension) I10 ; 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 ; Parkinsons disease G20 and Cervical stenosis of spine M48.02 [facility] [address] [address] Apr, Cervicalgia M54.2 [facility] [address] [address] Apr, Type 2 diabetes mellitus with other spec ified complication E11.69 ; HTN (hypertension) I10 ; Depression F32.9 ; 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 ; Coronary atherosclerosis due to lipid rich plaque I25.83 ; Cervicalgia M54.2 ; Parkinsons disease G20 ; Chronic diarrhea K52.9 and Pure hypercholesterolemia E78.00 [place] [address] [address] March, Other chronic pain G89.29 [place] [address] [address] March, Other chronic pain G89.29 [place] [address] [address] Feb, Cervical stenosis of spine M48.02 [place] [address] [address] Feb, Other chronic pain G89.29 [place] [address] [address] Jan, [place] [address] [address] Jan, Other chronic pain G89.29 [place] [address] [address] Jan, Other chronic pain G89.29 [place] [address] [address] Jan, Type 2 diabetes mellitus with other spec ified complication E11.69 ; 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 ; Anxiety F41.9 ; HTN (hypertension) I10 ; Depression F32.9 ; Coronary atherosclerosis due to lipid rich plaque I25.83 ; Cervicalgia M54.2 ; Other chronic pain G89.29 and Functional 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 [place] [address] [address] Nov, HTN (hypertension) I10 [place] [address] [address] Nov, Type 2 diabetes mellitus with other spec ified complication E11.69 ; 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 ; Hypercholesterolemia E78.0 ; Anxiety F41.9 ; Depression F32.9 ; Cervicalgia M54.2 and Functional 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 [place] [id number] [facility] [id number] [place] [address] Oct, [facility] [id number] [place] [address] Oct, Neck pain M54.2 [facility] [address] [facility] [id number] [place] [address] Sep, [facility] [id number] [place] [address] Aug, [facility] [address] [facility] [id number] [place] [address] Aug, [facility] [address] [facility] [id number] [address] [place] [address] Jul, Visit for TB skin test Z11.1 and Screening for tuberculosis Z11.1 [facility] [id number] [place] [address] May, [facility] [id number] [place] [address] May, Neck pain M54.2 [facility] [id number] [place] [address] May, [facility] [id number] [place] [address] Apr, Neck pain M54.2 [facility] [id number] [place] [address] Feb, Neck pain M54.2 [facility] [address] [facility] [id number] [place] [address] Feb, [facility] [id number] [place] [address] 30 Jan, 2016 Neck pain M54.2 [facility] [id number] [place] [address] Jan, [facility] [id number] [place] [address] 16 Jan, 2016 Neck pain M54.[address] [address] Jan, Neck pain M54.2 ; Type 2 diabetes mellit us with other specified complication E11.69 ; CAD (coronary artery disease) 414.00 ; Insomnia 780.52 ; Anxiety F41.9 ; Depression F32.9 ; Pre-ulcerative calluses L84 and Hypercholesterolemia E78.[address] [address] Nov, [address] [address] Nov, Type 2 diabetes mellitus with other spec ified complication E11.69 ; Pre-ulcerative calluses L84 ; HTN (hypertension) I10 ; Hypercholesterolemia E78.0 ; Anxiety F41.9 ; Depression F32.9 ; Environmental allergies Z91.09 and Osteoarthritis M19.[address] [address] Sep, [address] [address] Aug, Allergic rhinitis, seasonal J30.[address] [address] Jul, [address] [address] Jul, Other specified cardiac dysrhythmias 427 .89 ; Essential hypertension, benign 401.1 ; Nondependent tobacco use disorder 305.1 ; Unspecified hereditary and idiopathic peripheral neuropathy 356.9 ; Diabetes mellitus without mention of complication, type II or unspecified type, not stated as uncontrolled 250.00 ; CAD (coronary artery disease) 414.00 ; Insomnia 780.52 and Depression [address] [address] 14 Jul, [address] [address] Jul, [address] [address] May, [facility] [id number] [place] [address] May, [facility] [id number] [place] [address] May, [facility] [id number] [place] [address] Apr, [facility] [id number] [place] [address] Apr, Skin lesion of face 709.9 and Anxiety 30 0.00 [facility] [id number] [place] [address] March, [facility] [id number] [place] [address] Feb, [facility] [id number] [place] [address] Feb, [facility] [id number] [place] [address] Jan, [facility] [id number] [place] [address] Jan, [facility] [id number] [place] [address] Jan, [facility] [id number] [place] [address] Jan, [facility] [id number] [place] [address] Jan, [facility] [id number] [place] [address] Jan, [facility] [id number] [place] [address] Dec, [facility] [id number] [place] [address] Dec, [facility] [id number] [place] [address] Nov, [facility] [address] [facility] [id number] [place] [address] Nov, [facility] [address] [facility] [id number] [place] [address] Oct, [facility] [address] [facility] [id number] [place] [address] Oct, [facility] [address] [facility] [id number] [place] [address] Oct, [facility] [address] [facility] [id number] [place] [address] Oct, [facility] [address] [facility] [id number] [place] [address] Sep, [facility] [address] [facility] [id number] [place] [address] Sep, [facility] [address] [facility] [id number] [place] [address] Sep, [facility] [address] [facility] [id number] [place] [address] Sep, [facility] [address] [facility] [id number] [place] [address] Sep, [facility] [address] [facility] [id number] [place] [address] Sep, [facility] [address] [facility] [id number] [place] [address] Aug, [facility] [address] [facility] [id number] [place] [address] Aug, [facility] [address] [facility] [id number] [place] [address] Aug, [facility] [address] [facility] [id number] [place] [address] Aug, [facility] [address] [facility] [id number] [place] [address] Aug, [facility] [address] [facility] [id number] [place] [address] Aug, [facility] [address] [facility] [id number] [place] [address] Aug, [facility] [address] [facility] [id number] [place] [address] Aug, [facility] [address] [facility] [id number] [place] [address] Aug, [facility] [address] [facility] [id number] [place] [address] Aug, [facility] [address] [facility] [id number] [place] [address] Jul, [facility] [address] [facility] [id number] [place] [address] Jul, [facility] [address] [facility] [id number] [place] [address] May, [facility] [address] [facility] [id number] [place] [address] May, [facility] [address] [facility] [id number] [place] [address] May, [facility] [address] [facility] [id number] [place] [address] May, [facility] [address] [facility] [id number] [place] [address] May, [facility] [address] [id number] [place] [address] May, [facility] [address] [facility] [id number] [place] [address] Apr, [facility] [address] [facility] [id number] [place] [address] Apr, [facility] [address] [facility] [id number] [place] [address] Apr, [facility] [address] [facility] [id number] [place] [address] Apr, [facility] [address] [id number] [place] [address] March, [facility] [address] [facility] [id number] [place] [address] March, [facility] [address] [id number] [place] [address] Feb, [facility] [address] [facility] [id number] [place] [address] Feb, [facility] [address] [facility] [id number] [place] [address] Jan, [facility] [address] [facility] [id number] [place] [address] Jan, [facility] [address] [facility] [id number] [place] [address] Nov, [facility] [address] [facility] [id number] [place] [address] Nov, [facility] [address] [facility] [id number] [place] [address] Nov, [facility] [address] [facility] [id number] [place] [address] Nov, [facility] [address] [facility] [id number] [place] [address] Nov, [facility] [address] [facility] [id number] [place] [address] Nov, [facility] [address] [facility] [id number] [place] [address] Oct, [facility] [id number] [place] [address] Oct, [facility] [id number] [place] [address] Aug, [facility] [id number] [place] [address] Aug, [facility] [id number] [place] [address] Jul, [facility] [id number] [place] [address] Jun, [facility] [id number] [place] [address] Jun, [facility] [id number] [place] [address] Jun, [facility] [id number] [place] [address] Jun, [facility] [id number] [place] [address] Jun, [facility] [address] [address] Jun, [facility] [id number] [place] [address] May, [facility] [id number] [place] [address] March, [facility] [id number] [place] [address] March, [facility] [id number] [place] [address] Jan, IMMUNIZATIONS No Known Immunizations SOCIAL HISTORY [...] cyst Hospitalization History surgery Hospitalization History [facility]- Right Leg Pain 09/21/2017 Hospitalization History [facility]- Severe Dehydr ation with Acute Renal Failure 05/06/2018 Hospitalization History Back surgery to remove cyst/ infecti on
--- OUTSIDE RECORDS SUMMARY | 2020-03-23 00:54 | XMS REPORT ---
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 Active 847786324 Problem Cervicalgia M54.2 Active 35147113 9009303 Problem Cervical stenosis of spine M48.02 Act cynthia 96256199 Problem Other chronic pain G89.29 Active 8 9498262 Problem 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 Active 762166547 Problem Lumbar spondylosis M47.816 Active 2 21594308 Problem Recurrent major depressive disorder, in full remission F33.42 Active 664662330 Problem Current mild episode of major depressive disorder without prior episode F32.0 Active 48023721 Problem Hypercholesterolemia E78.0 Active 62080629 Problem Parkinson disease G20 Active 49 582329 Problem Parkinsons disease G20 Active 4 0872927 Problem Cannabis abuse F12.10 Active 66055 009 Problem Generalized anxiety disorder F41.1 A ctive 51823560 Problem Panic F41.0 Active 78844099 Problem Carpal tunnel syndrome, right G56.01 Active [id number] ALLERGIES No Information ENCOUNTERS Encounter Location Date Diagnosis [facility] [address] [facility] [id number] [address] [place] [phone] Apr, [facility] [address] [facility] [id number] [address] [place] [address] Jan, Type 2 diabetes mellitus wit h other specified complication E11.69 [facility] [address] [facility] [id number] [address] [place] [id number] 04 Jan, 2020 Type 2 diabetes mellitus wit h other specified complication E11.69 ; HTN (hypertension) I10 and Screening for prostate cancer Z12.5 [facility] [address] [place] [id number] [address] [place] [id number] 03 Jan, 2020 [facility] [address] [place] [id number] [address] [place] [address] 03 Jan, 2020 Type 2 diabetes mellitus wit h other specified complication E11.69 ; Parkinsons disease G20 ; Recurrent major depressive disorder, in full remission F33.42 ; Encounter for immunization Z23 ; Callus L84 ; HTN (hypertension) I10 and Screening for prostate cancer Z12.5 [place] [address] [place] [id number] [address] [place] [address] Oct, Cellulitis of toe of left fo ot L03.032 [place] [address] [address] Aug, Carpal tunnel syndrome, righ t G56.01 [place] [address] [place] [id number] [address] [place] [address] Aug, Wrist pain, right M25.531 ; Parkinson disease G20 and Current mild episode of major depressive disorder without prior episode F32.0 [place] [address] [place] [id number] [address] [place] [address] Jun, Carpal tunnel syndrome, righ t G56.[address] [place] [address] May, Parkinsons disease G20 ; Hyp ercholesterolemia E78.0 and HTN (hypertension) I10 [place] [address] [place] [id number] [address] [place] [address] May, Tenosynovitis, de Quervain M 65.4 ; Type 2 diabetes mellitus with other specified complication E11.69 ; Lumbar spondylosis M47.816 and HTN (hypertension) I10 [place] [address] [place] [id number] [address] [place] [address] March, [facility] [address] [place] [address] Jan, [facility] [address] [facility] [id number] [address] [place] [address] Dec, Hypercholesterolemia E78.0 [facility] [address] [facility] [id number] [address] [place] [address] Nov, HTN (hypertension) I10 [facility] [address] [facility] [id number] [address] [place] [address] Oct, Generalized anxiety disorder F41.1 and Panic F41.0 [facility] [address] [facility] [id number] [address] [place] [address] Oct, Generalized anxiety disorder F41.1 and Panic F41.0 [facility] [address] [place] [id number] [address] [place] [address] Aug, Cervicalgia M54.2 [facility] [address] [place] [id number] [address] [place] [address] Aug, Type 2 diabetes mellitus wit h other specified complication E11.69 ; HTN (hypertension) I10 ; Parkinsons disease G20 ; 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 ; Hypercholesterolemia E78.0 and Cervical stenosis of spine M48.02 [facility] [address] [facility] [id number] [address] [place] [address] Aug, Type 2 diabetes mellitus wit h other specified complication E11.69 [facility] [address] [facility] [id number] [address] [place] [address] May, [facility] [address] [facility] [id number] [address] [place] [address] Apr, [facility] [address] [facility] [id number] [address] [place] [address] Apr, Dehydration E86.0 ; Acute re nal failure, unspecified acute renal failure type N17.9 ; Cannabis abuse F12.10 ; Type 2 diabetes mellitus with other specified complication E11.69 ; HTN (hypertension) I10 ; Parkinsons disease G20 ; Hypercholesterolemia E78.0 ; 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 ; Cervicalgia M54.2 ; Need for hepatitis C screening test Z11.59 and Recurrent major depressive disorder, in full remission F33.42 [place] [address] [place] [id number] [address] [place] [id number] 18 Apr, 2018 [place] [address] [place] [id number] [place] [address] 14 Apr, 2018 Dehydration E86.0 ; Hypotens ion, unspecified hypotension type I95.9 ; Fall, initial encounter W19.XXXA ; Acute head injury without loss of consciousness, initial encounter S09.90XA ; Type 2 diabetes mellitus with other specified complication E11.69 ; HTN (hypertension) I10 and Parkinsons disease G20 [place] [address] [place] [id number] [address] [place] [address] 14 Apr, 2018 [place] [address] [place] [id number] [address] [place] [address] Apr, [place] [address] [place] [id number] [address] [place] [address] Feb, Cervicalgia M54.2 [place] [address] [place] [id number] [address] [place] [address] Feb, Cervical stenosis of spine M 48.02 [place] [address] [facility] [id number] [address] [place] [address] Jan, Cervicalgia M54.2 [place] [address] [facility] [id number] [address] [place] [address] Jan, Acute right-sided low back p ain with right-sided sciatica M54.41 [place] [address] [place] [id number] [address] [place] [address] Dec, Cervicalgia M54.2 [place] [address] [place] [id number] [address] [place] [address] 02 Dec, 2017 Controlled substance agreeme nt signed Z79.899 [place] [address] [place] [id number] [place] [address] Oct, Cervicalgia M54.2 [place] [address] [place] [id number] [place] [address] Oct, Acute right-sided low back p ain with right-sided sciatica M54.41 [place] [id number] [place] [address] 04 Oct, 2017 [place] [address] [address] Sep, Cervicalgia M54.2 [place] [address] [address] 14 Sep, 2017 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 [place] [address] [address] 13 Sep, 2017 Lumbar back pain with radicu lopathy affecting right lower extremity M54.17 [place] [address] [place] [id number] [address] [place] [address] 03 Sep, 2017 Acute right-sided low back p ain with right-sided sciatica M54.41 [place] [address] [place] [id number] [address] [place] [address] 30 Aug, 2017 Type 2 diabetes mellitus wit h other specified complication E11.69 ; HTN (hypertension) I10 ; Cervicalgia M54.2 ; Cervical stenosis of spine M48.02 ; Acute right hip pain M25.551 ; 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 and Cervicalgia M54.2 [facility] [address] [id number] [address] [place] [address] Jun, Cervicalgia M54.2 [facility] [address] [id number] [address] [place] [address] May, Other chronic pain G89.29 [facility] [address] [id number] [address] [place] [address] May, [facility] [address] [id number] [address] [place] [address] May, [facility] [address] [id number] [address] [place] [address] May, [facility] [address] [facility] [id number] [address] [place] [phone] May, [facility] [address] [facility] [id number] [address] [place] [address] May, Type 2 diabetes mellitus wit h other specified complication E11.69 ; HTN (hypertension) I10 ; 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 ; Parkinsons disease G20 and Cervical stenosis of spine M48.02 [facility] [address] [id number] [address] [place] [address] Apr, Cervicalgia M54.2 [facility] [address] [facility] [id number] [address] [place] [address] Apr, Type 2 diabetes mellitus wit h other specified complication E11.69 ; HTN (hypertension) I10 ; Depression F32.9 ; 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 ; Coronary atherosclerosis due to lipid rich plaque I25.83 ; Cervicalgia M54.2 ; Parkinsons disease G20 ; Chronic diarrhea K52.9 and Pure hypercholesterolemia E78.00 [place] [address] [id number] [address] [place] [address] March, Other chronic pain G89.29 [place] [address] [facility] [id number] [address] [place] [address] March, Other chronic pain G89.29 [place] [address] [id number] [address] [place] [address] Feb, Cervical stenosis of spine M 48.02 [facility] [address] [id number] [address] [place] [phone] Feb, Other chronic pain G89.29 [place] [address] [facility] [id number] [address] [place] [address] Jan, [place] [address] [id number] [address] [place] [address] Jan, Other chronic pain G89.29 [facility] [address] [id number] [address] [place] [address] Jan, Other chronic pain G89.29 [facility] [address] [facility] [id number] [address] [place] [address] Jan, Type 2 diabetes mellitus wit h other specified complication E11.69 ; 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 ; Anxiety F41.9 ; HTN (hypertension) I10 ; Depression F32.9 ; Coronary atherosclerosis due to lipid rich plaque I25.83 ; Cervicalgia M54.2 ; Other chronic pain G89.29 and Functional 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 [facility] [address] [facility] [id number] [address] [place] [address] Nov, HTN (hypertension) I10 [facility] [address] [facility] [id number] [address] [place] [address] Nov, Type 2 diabetes mellitus wit h other specified complication E11.69 ; 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 ; Hypercholesterolemia E78.0 ; Anxiety F41.9 ; Depression F32.9 ; Cervicalgia M54.2 and Functional 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 [facility] [address] [facility] [id number] [address] [place] [address] Oct, [facility] [address] [facility] [id number] [address] [place] [address] Oct, Neck pain M54.2 [facility] [address] [facility] [id number] [address] [place] [address] Sep, [facility] [address] [facility] [id number] [address] [place] [phone] Aug, [facility] [address] [facility] [id number] [address] [place] [address] Aug, [facility] [address] [facility] [id number] [address] [place] [address] Jul, Visit for TB skin test Z11.1 and Screening for tuberculosis Z11.1 [facility] [address] [facility] [id number] [address] [place] [address] May, [facility] [address] [facility] [id number] [address] [place] [address] May, Neck pain M54.2 [facility] [address] [facility] [id number] [address] [place] [address] May, [facility] [address] [address] Apr, Neck pain M54.2 [facility] [address] [address] Feb, Neck pain M54.2 [facility] [address] [address] Feb, [facility] [address] [address] Jan, Neck pain M54.2 [facility] [address] [address] Jan, [place] [address] [address] Jan, Neck pain M54.2 [place] [address] [address] Jan, Neck pain M54.2 ; Type 2 sarath betes mellitus with other specified complication E11.69 ; CAD (coronary artery disease) 414.00 ; Insomnia 780.52 ; Anxiety F41.9 ; Depression F32.9 ; Pre-ulcerative calluses L84 and Hypercholesterolemia E78.0 [place] [address] [address] Nov, [place] [address] [address] Nov, Type 2 diabetes mellitus wit h other specified complication E11.69 ; Pre-ulcerative calluses L84 ; HTN (hypertension) I10 ; Hypercholesterolemia E78.0 ; Anxiety F41.9 ; Depression F32.9 ; Environmental allergies Z91.09 and Osteoarthritis M19.90 [place] [address] [address] Sep, [place] [address] [address] Aug, Allergic rhinitis, seasonal J30.2 [place] [address] [facility] [id number] [address] [place] [address] Jul, [facility] [address] [facility] [id number] [address] [place] [address] Jul, Other specified cardiac dysr hythmias 427.89 ; Essential hypertension, benign 401.1 ; Nondependent tobacco use disorder 305.1 ; Unspecified hereditary and idiopathic peripheral neuropathy 356.9 ; Diabetes mellitus without mention of complication, type II or unspecified type, not stated as uncontrolled 250.00 ; CAD (coronary artery disease) 414.00 ; Insomnia 780.52 and Depression 311 [facility] [address] [facility] [id number] [address] [place] [address] Jul, [facility] [address] [place] [id number] [address] [place] [address] Jul, [facility] [address] [place] [id number] [address] [place] [address] May, [facility] [address] [place] [id number] [address] [place] [address] May, [facility] [address] [place] [id number] [address] [place] [address] May, [facility] [address] [place] [id number] [address] [place] [address] Apr, [facility] [address] [place] [id number] [address] [place] [address] Apr, Skin lesion of face 709.9 an d Anxiety 300.00 [facility] [address] [facility] [id number] [address] [place] [phone] March, [facility] [address] [place] [id number] [address] [place] [address] Feb, [facility] [address] [place] [id number] [address] [place] [phone] Feb, [facility] [address] [place] [id number] [address] [place] [address] Jan, [facility] [address] [id number] [address] [place] [address], [place] [address] Jan, [facility] [address] [id number] [address] [place] [address], [place] [address] Jan, [facility] [address] [id number] [address] [place] [address], [place] [address] Jan, [facility] [address] [id number] [address] [place] [address], [place] [address] Jan, [facility] [address] [id number] [address] [place] [address], [place] [address] Jan, [facility] [address] [id number] [address] [place] [address], [place] [address] Dec, [facility] [address] [id number] [address] [place] [address], [place] [address] Dec, [facility] [address] [id number] [address] [place] [address], [place] [address] Nov, [facility] [address] [id number] [address] [place] [address], [place] [address] Nov, [facility] [address] [id number] [address] [place] [address], [place] [address] Oct, [facility] [address] [id number] [address] [place] [address], [place] [address] Oct, [facility] [address] [id number] [address] [place] [address], [place] [address] Oct, [facility] [address] [id number] [address] [place] [address], [place] [address] Oct, [facility] [address] [id number] [address] [place] [address], [place] [address] Sep, [facility] [address] [id number] [address] [place] [address], [place] [address] Sep, [facility] [address] [id number] [address] [place] [address], [place] [address] Sep, [facility] [address] [id number] [address] [place] [address], [place] [address] Sep, [facility] [address] [id number] [address] [place] [address], [place] [address] Sep, [facility] [address] [id number] [address] [place] [address], [place] [address] Sep, [facility] [address] [id number] [address] [place] [address], [place] [address] Aug, [facility] [address] [id number] [address] [place] [address], [place] [address] Aug, [facility] [address] [id number] [address] [place] [address], [place] [address] Aug, [facility] [address] [id number] [address] [place] [address], [place] [address] Aug, [facility] [address] [id number] [address] [place] [address], [place] [address] Aug, [facility] [address] [id number] [address] [place] [address], [place] [address] Aug, [facility] [address] [id number] [address] [place] [address], [place] [address] Aug, [facility] [address] [id number] [address] [place] [address], [place] [address] Aug, [facility] [address] [id number] [address] [place] [address], [place] [address] Aug, [facility] [address] [id number] [address] [place] [address], [place] [address] Aug, [facility] [address] [id number] [address] [place] [address], [place] [id number] 05 Jul, 2014 [facility] [address] [id number] [address] [place] [address], [place] [id number] 05 Jul, 2014 [facility] [address] [id number] [address] [place] [address], [place] [address] May, [facility] [address] [id number] [address] [place] [address], [place] [address] May, [facility] [address] [id number] [address] [place] [address], [place] [address] May, [facility] [address] [id number] [address] [place] [address], [place] [address] May, [facility] [address] [id number] [address] [place] [address], [place] [address] May, [facility] [address] [id number] [address] [place] [address], [place] [address] May, [facility] [address] [id number] [address] [place] [address], [place] [address] Apr, [facility] [address] [id number] [address] [place] [address], [place] [address] Apr, [facility] [address] [id number] [address] [place] [address], [place] [address] Apr, [facility] [address] [id number] [address] [place] [address], [place] [address] Apr, [facility] [address] [id number] [address] [place] [address], [place] [address] March, [facility] [address] [id number] [address] [place] [address], [place] [address] March, [facility] [address] [id number] [address] [place] [address], [place] [address] Feb, [facility] [address] [id number] [address] [place] [address], [place] [address] Feb, [facility] [address] [id number] [address] [place] [address], [place] [address] Jan, [facility] [address] [id number] [address] [place] [address], [place] [address] Jan, [facility] [address] [id number] [address] [place] [address], [place] [address] Nov, [facility] [address] [id number] [address] [place] [address], [place] [address] Nov, [facility] [address] [id number] [address] [place] [address], [place] [address] Nov, [facility] [address] [id number] [address] [place] [address], [place] [address] Nov, [facility] [address] [id number] [address] [place] [address], [place] [address] Nov, [facility] [address] [id number] [address] [place] [address], [place] [address] Nov, [facility] [address] [id number] [address] [place] [address], [place] [address] Oct, [facility] [address] [id number] [address] [place] [address], [place] [address] Oct, [facility] [address] [id number] [address] [place] [address], [place] [address] Aug, [facility] [address] [id number] [address] [place] [address], [place] [address] Aug, [facility] [address] [id number] [address] [place] [address], [place] [address] Jul, [facility] [address] [id number] [address] [place] [address], [place] [address] Jun, [facility] [address] [id number] [address] [place] [address], [place] [address] Jun, [facility] [address] [id number] [address] [place] [address], [place] [address] Jun, [facility] [address] [id number] [address] [place] [address], [place] [address] Jun, [facility] [address] [id number] [address] [place] [address] Jun, [facility] [address] [facility] [id number] [address] [place] [address] Jun, [facility] [address] [facility] [id number] [address] [place] [address] May, [facility] [address] [facility] [id number] [address] [place] [address] March, [facility] [address] [facility] [id number] [address] [place] [address] March, [facility] [address] [facility] [id number] [address] [place] [address] Jan, IMMUNIZATIONS No Known Immunizations SOCIAL HISTORY [...] cyst Hospitalization History surgery Hospitalization History Via [facility]- Right Leg Pain 09/21/2017 Hospitalization History [facility]- Severe Dehydr ation with Acute Renal Failure 05/06/2018 Hospitalization History Back surgery to remove cyst/ infecti on
--- OUTSIDE RECORDS SUMMARY | 2020-03-23 00:55 | XMS REPORT ---
Author Author Zoran OLIVER NA [facility] Organization [facility] Address [address] [place] [address] Care Team Providers Care Petrology Teacher Name Role Phone ANTWON ETIENNEMARS Unavailable PROBLEMS Type Condition ICD9-CM Code SEO01-KH Code Onset Dates Condition S tatus SNOMED Code Problem HTN (hypertension) I10 Active 3 9349383 Problem Type 2 diabetes mellitus with other specified complication E11.69 Active 2980375 Problem Atherosclerotic heart diseas e of [place] coronary artery without angina pectoris I25.10 Active 933089407 Problem Cervicalgia M54.2 Active 38806277 0104479 Problem Cervical stenosis of spine M48.02 Act cynthia 29709180 Problem Other chronic pain G89.29 Active 8 6207772 Problem 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 Active 982740059 Problem Lumbar spondylosis M47.816 Active 2 52741635 Problem Recurrent major depressive disorder, in full remission F33.42 Active 181167579 Problem Current mild episode of major depressive disorder without prior episode F32.0 Active 65460670 Problem Hypercholesterolemia E78.0 Active 39033200 Problem Parkinson disease G20 Active 49 721374 Problem Parkinsons disease G20 Active 4 5926786 Problem Cannabis abuse F12.10 Active 96725 009 Problem Generalized anxiety disorder F41.1 A ctive 78113415 Problem Panic F41.0 Active 41149596 Problem Carpal tunnel syndrome, right G56.01 Active [id number] ALLERGIES No Information ENCOUNTERS Encounter Location Date Diagnosis [facility] [address] [address] Oct, Cellulitis of toe of left foot L03.032 [facility] [id number] [place] [address] Aug, Carpal tunnel syndrome, right G56.01 [facility] [address] [address] Aug, Wrist pain, right M25.531 ; Parkinson di sease G20 and Current mild episode of major depressive disorder without prior episode F32.0 [place] [address] [address] Jun, Carpal tunnel syndrome, right G56.01 [address] [address] [place] [address] May, Parkinsons disease G20 ; Hyp ercholesterolemia E78.0 and HTN (hypertension) I10 [place] [address] [address] May, Tenosynovitis, de Quervain M65.4 ; Type 2 diabetes mellitus with other specified complication E11.69 ; Lumbar spondylosis M47.816 and HTN (hypertension) I10 [place] [address] [address] March, [address] [place] [address] Jan, [place] [address] [address] Dec, Hypercholesterolemia E78.0 [place] [address] [address] Nov, HTN (hypertension) I10 [place] [address] [address] Oct, Generalized anxiety disorder F41.1 and P anic F41.0 [place] [address] [address] Oct, Generalized anxiety disorder F41.1 and P anic F41.0 [place] [address] [address] Aug, Cervicalgia M54.2 [place] [address] [address] Aug, Type 2 diabetes mellitus with other spec ified complication E11.69 ; HTN (hypertension) I10 ; Parkinsons disease G20 ; Atherosclerotic heart disease of [place] coronary artery without angina pectoris I25.10 ; Hypercholesterolemia E78.0 and Cervical stenosis of spine M48.02 [place] [address] [address] Aug, Type 2 diabetes mellitus with other spec ified complication E11.69 [place] [address] [address] May, [place] [address] [address] Apr, [place] [address] [address] Apr, Dehydration E86.0 ; Acute renal failure, unspecified acute renal failure type N17.9 ; Cannabis abuse F12.10 ; Type 2 diabetes mellitus with other specified complication E11.69 ; HTN (hypertension) I10 ; Parkinsons disease G20 ; Hypercholesterolemia E78.0 ; Atherosclerotic heart disease of [place] coronary artery without angina pectoris I25.10 ; Cervicalgia M54.2 ; Need for hepatitis C screening test Z11.59 and Recurrent major depressive disorder, in full remission F33.42 [place] [address] [address] Apr, [place] [address] [address] Apr, Dehydration E86.0 ; Hypotension, unspeci fied hypotension type I95.9 ; Fall, initial encounter W19.XXXA ; Acute head injury without loss of consciousness, initial encounter S09.90XA ; Type 2 diabetes mellitus with other specified complication E11.69 ; HTN (hypertension) I10 and Parkinsons disease G20 [place] [address] [address] Apr, [place] [address] [address] Apr, [place] [address] [address] 13 Feb, 2018 Cervicalgia M54.2 [facility] [address] [address] Feb, Cervical stenosis of spine M48.02 [facility] [address] [address] Jan, Cervicalgia M54.2 [facility] [address] [address] Jan, Acute right-sided low back pain with rig ht-sided sciatica M54.41 [facility] [address] [address] Dec, Cervicalgia M54.2 [facility] [address] [address] Dec, Controlled substance agreement signed Z7 9.899 [place] [address] [address] Oct, Cervicalgia M54.2 [facility] [address] [address] 11 Oct, 2017 Acute right-sided low back pain with rig ht-sided sciatica M54.41 [facility] [address] [address] 04 Oct, 2017 [facility] [address] [address] 28 Sep, 2017 Cervicalgia M54.2 [facility] [address] [address] 14 Sep, 2017 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 [facility] [address] [address] 13 Sep, 2017 Lumbar back pain with radiculopathy affe cting right lower extremity M54.17 [facility] [address] [address] 03 Sep, 2017 Acute right-sided low back pain with rig ht-sided sciatica M54.41 [facility] [address] [address] Aug, Type 2 diabetes mellitus with other spec ified complication E11.69 ; HTN (hypertension) I10 ; Cervicalgia M54.2 ; Cervical stenosis of spine M48.02 ; Acute right hip pain M25.551 ; Atherosclerotic heart disease of [place] coronary artery without angina pectoris I25.10 ; Hypercholesterolemia E78.0 ; Parkinsons disease G20 and Depression F32.9 [facility] [address] [address] Aug, Other chronic pain G89.29 [place] [address] [address] Jul, Other chronic pain G89.29 [place] [address] [address] Jul, [facility] [address] [facility] [id number] [address] [place] [address] Jul, Cough R05 and Bronchitis J40 [place] [address] [address] Jun, Other chronic pain G89.29 [facility] [address] [address] Jun, [place] [address] [address] Jun, Atherosclerotic heart disease of [place] coronary artery without angina pectoris I25.10 and Cervicalgia M54.2 [facility] [address] [address] Jun, Cervicalgia M54.2 [place] [address] [address] May, Other chronic pain G89.29 [facility] [address] [address] May, [place] [address] [id number] [place] [address] 14 May, 2017 [facility] [address] [address] May, [facility] [address] [address] May, [facility] [address] [address] May, Type 2 diabetes mellitus with other spec ified complication E11.69 ; HTN (hypertension) I10 ; Atherosclerotic heart disease of [place] coronary artery without angina pectoris I25.10 ; Parkinsons disease G20 and Cervical stenosis of spine M48.02 [place] [address] [address] Apr, Cervicalgia M54.[address] [address] Apr, Type 2 diabetes mellitus with other spec ified complication E11.69 ; HTN (hypertension) I10 ; Depression F32.9 ; Atherosclerotic heart disease of [place] coronary artery without angina pectoris I25.10 ; Coronary atherosclerosis due to lipid rich plaque I25.83 ; Cervicalgia M54.2 ; Parkinsons disease G20 ; Chronic diarrhea K52.9 and Pure hypercholesterolemia E78.00 [place] [address] [address] March, Other chronic pain G89.29 [place] [address] [address] March, Other chronic pain G89.29 [place] [address] [address] Feb, Cervical stenosis of spine M48.02 [place] [address] [address] Feb, Other chronic pain G89.29 [facility] [address] [address] Jan, [facility] [address] [address] 08 Jan, 2017 Other chronic pain G89.29 [facility] [address] [address] Jan, Other chronic pain G89.29 [facility] [address] [address] Jan, Type 2 diabetes mellitus with other spec ified complication E11.69 ; Atherosclerotic heart disease of [place] coronary artery without angina pectoris I25.10 ; Anxiety F41.9 ; HTN (hypertension) I10 ; Depression F32.9 ; Coronary atherosclerosis due to lipid rich plaque I25.83 ; Cervicalgia M54.2 ; Other chronic pain G89.29 and Functional 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 [place] [address] [address] Nov, HTN (hypertension) I10 [place] [address] [address] Nov, Type 2 diabetes mellitus with other spec ified complication E11.69 ; Atherosclerotic heart disease of [place] coronary artery without angina pectoris I25.10 ; Hypercholesterolemia E78.0 ; Anxiety F41.9 ; Depression F32.9 ; Cervicalgia M54.2 and Functional 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 [facility] [address] [address] Oct, [facility] [address] [address] Oct, Neck pain M54.2 [facility] [address] [address] Sep, [facility] [address] [address] Aug, [place] [address] [address] Aug, [facility] [address] [facility] [id number] [address] [place] [address] Jul, Visit for TB skin test Z11.1 and Screening for tuberculosis Z11.1 [facility] [address] [address] May, [facility] [address] [address] May, Neck pain M54.2 [facility] [address] [address] May, [facility] [address] [address] Apr, Neck pain M54.2 [facility] [address] [address] Feb, Neck pain M54.2 [facility] [address] [address] Feb, [facility] [address] [address] Jan, Neck pain M54.2 [facility] [address] [address] Jan, [facility] [address] [address] Jan, Neck pain M54.2 [facility] [address] [address] Jan, Neck pain M54.2 ; Type 2 diabetes mellit us with other specified complication E11.69 ; CAD (coronary artery disease) 414.00 ; Insomnia 780.52 ; Anxiety F41.9 ; Depression F32.9 ; Pre-ulcerative calluses L84 and Hypercholesterolemia E78.0 [facility] [address] [address] Nov, [facility] [address] [address] Nov, Type 2 diabetes mellitus with other spec ified complication E11.69 ; Pre-ulcerative calluses L84 ; HTN (hypertension) I10 ; Hypercholesterolemia E78.0 ; Anxiety F41.9 ; Depression F32.9 ; Environmental allergies Z91.09 and Osteoarthritis M19.[address] [address] Sep, [address] [address] Aug, Allergic rhinitis, seasonal J30.[address] [address] Jul, [address] [address] Jul, Other specified cardiac dysrhythmias 427 .89 ; Essential hypertension, benign 401.1 ; Nondependent tobacco use disorder 305.1 ; Unspecified hereditary and idiopathic peripheral neuropathy 356.9 ; Diabetes mellitus without mention of complication, type II or unspecified type, not stated as uncontrolled 250.00 ; CAD (coronary artery disease) 414.00 ; Insomnia 780.52 and Depression [address] [address] Jul, [address] [address] Jul, [address] [address] May, [address] [address] May, [address] [address] May, [address] [address] Apr, [address] [address] Apr, Skin lesion of face 709.9 and Anxiety [address] [address] March, [address] [address] 14 Feb, 2015 [facility] [address] [id number] [place] [address] 13 Feb, 2015 [facility] [address] [id number] [place] [address] 20 Jan, 2015 [facility] [address] [id number] [place] [address] Jan, [facility] [address] [id number] [place] [address] Jan, [facility] [address] [facility] [id number] [place] [address] Jan, [facility] [address] [id number] [place] [address] Jan, [facility] [address] [id number] [place] [address] Jan, [facility] [address] [id number] [place] [address] Dec, [facility] [address] [id number] [place] [address] Dec, [facility] [address] [id number] [place] [address] Nov, [facility] [address] [id number] [place] [address] Nov, [facility] [address] [id number] [place] [address] Oct, [facility] [address] [id number] [place] [address] Oct, [facility] [address] [id number] [place] [address] Oct, [facility] [address] [id number] [place] [address] Oct, [facility] [address] [id number] [place] [address] Sep, [facility] [address] [id number] [place] [address] Sep, [facility] [address] [id number] [place] [address] Sep, [facility] [address] [id number] [place] [address] Sep, [facility] [address] [id number] [place] [address] Sep, [facility] [address] [id number] [place] [address] Sep, [facility] [address] [id number] [place] [address] Aug, [facility] [address] [id number] [place] [address] Aug, [facility] [address] [id number] [place] [address] Aug, [facility] [address] [id number] [place] [address] Aug, [facility] [address] [id number] [place] [address] Aug, [facility] [address] [id number] [place] [address] Aug, [facility] [address] [id number] [place] [address] Aug, [facility] [address] [id number] [place] [address] Aug, [facility] [address] [id number] [place] [address] Aug, [facility] [id number] [place] [address] Aug, [facility] [address] [id number] [place] [address] 05 Jul, 2014 [facility] [address] [id number] [place] [address] Jul, [facility] [address] [facility] [id number] [place] [address] May, [facility] [address] [id number] [place] [address] May, [facility] [address] [id number] [place] [address] May, [facility] [address] [id number] [place] [address] May, [facility] [address] [id number] [place] [address] May, [facility] [address] [id number] [place] [address] May, [facility] [address] [id number] [place] [address] Apr, [facility] [address] [id number] [place] [address] Apr, [facility] [address] [id number] [place] [address] Apr, [facility] [address] [id number] [place] [address] Apr, [facility] [address] [id number] [place] [address] March, [facility] [address] [id number] [place] [address] March, [facility] [address] [id number] [place] [address] Feb, [facility] [address] [id number] [place] [address] Feb, [facility] [address] [id number] [place] [address] Jan, [facility] [address] [id number] [place] [address] Jan, [facility] [address] [id number] [place] [address] Nov, [facility] [address] [facility] [id number] [place] [address] Nov, [facility] [address] [facility] [id number] [place] [address] Nov, [facility] [address] [id number] [place] [address] Nov, [facility] [address] [id number] [place] [address] Nov, [facility] [address] [facility] [id number] [place] [address] Nov, [facility] [address] [id number] [place] [address] Oct, [facility] [address] [id number] [place] [address] Oct, [facility] [address] [id number] [place] [address] Aug, [facility] [address] [id number] [place] [address] Aug, [facility] [address] [id number] [place] [address] Jul, [facility] [address] [id number] [place] [address] Jun, [facility] [address] [id number] [place] [address] Jun, [facility] [address] [id number] [place] [address] Jun, [facility] [id number] [place] [address] Jun, [facility] [address] [id number] [place] [address] Jun, [facility] [address] [id number] [place] [address] Jun, [facility] [address] [id number] [place] [address] May, [facility] [address] [id number] [place] [address] March, [facility] [address] [id number] [place] [address] March, [facility] [address] [id number] [place] [address] Jan, IMMUNIZATIONS No Known Immunizations SOCIAL HISTORY Never Assessed REASON FOR VISIT PLAN OF CARE VITAL SIGNS MEDICATIONS No Known Medications RESULTS No Results PROCEDURES No Known [...] History appendectomy 1968 Surgical History carpal tunnel 2016 Surgical History Back surgery to remove cyst Hospitalization History surgery Hospitalization History [facility]- Right Leg Pain 09/21/2017 Hospitalization History [facility]- Severe Dehydr ation with Acute Renal Failure 05/06/2018 Hospitalization History Back surgery to remove cyst/ infecti on
--- OUTSIDE RECORDS SUMMARY | 2020-03-23 00:55 | XMS REPORT ---
Author Author Zoran OLIVER NA [facility] Organization [facility] Address [address] [place] [address] Care Team Providers Care Sales Promotion Manager Name Role Phone ANTWON ETIENNEMARS Unavailable PROBLEMS Type Condition ICD9-CM Code [id number] Code Onset Dates Condition S tatus SNOMED Code Problem HTN (hypertension) I10 Active 3 7600134 Problem Type 2 diabetes mellitus with other specified complication E11.69 Active 9919084 Problem Atherosclerotic heart diseas e of [place] coronary artery without angina pectoris I25.10 Active 740103524 Problem Cervicalgia M54.2 Active 05525437 4849400 Problem Cervical stenosis of spine M48.02 Act cynthia 33780973 Problem Other chronic pain G89.29 Active 8 0721026 Problem 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 Active 653259287 Problem Lumbar spondylosis M47.816 Active 2 71691304 Problem Recurrent major depressive disorder, in full remission F33.42 Active 004065678 Problem Current mild episode of major depressive disorder without prior episode F32.0 Active 22625808 Problem Hypercholesterolemia E78.0 Active 53504703 Problem Parkinson disease G20 Active 49 896566 Problem Parkinsons disease G20 Active 4 6989754 Problem Cannabis abuse F12.10 Active 27922 009 Problem Generalized anxiety disorder F41.1 A ctive 94272630 Problem Panic F41.0 Active 57457455 Problem Carpal tunnel syndrome, right G56.01 Active [id number] ALLERGIES No Information ENCOUNTERS Encounter Location Date Diagnosis [facility] [address] [address] Oct, Cellulitis of toe of left foot L03.032 [facility] [id number] [place] [address] Aug, Carpal tunnel syndrome, right G56.01 [facility] [address] [address] Aug, Wrist pain, right M25.531 ; Parkinson di sease G20 and Current mild episode of major depressive disorder without prior episode F32.0 [place] [address] [address] Jun, Carpal tunnel syndrome, right G56.01 [address] [address] [address] [place] [address] May, Parkinsons disease G20 ; Hyp ercholesterolemia E78.0 and HTN (hypertension) I10 [place] [address] [address] May, Tenosynovitis, de Quervain M65.4 ; Type 2 diabetes mellitus with other specified complication E11.69 ; Lumbar spondylosis M47.816 and HTN (hypertension) I10 [place] [address] [address] March, [address] [place] [address] Jan, [place] [address] [address] Dec, Hypercholesterolemia E78.0 [place] [address] [address] Nov, HTN (hypertension) I10 [place] [address] [address] Oct, Generalized anxiety disorder F41.1 and P anic F41.0 [place] [address] [address] Oct, Generalized anxiety disorder F41.1 and P anic F41.0 [place] [address] [address] Aug, Cervicalgia M54.2 [place] [address] [address] Aug, Type 2 diabetes mellitus with other spec ified complication E11.69 ; HTN (hypertension) I10 ; Parkinsons disease G20 ; Atherosclerotic heart disease of [place] coronary artery without angina pectoris I25.10 ; Hypercholesterolemia E78.0 and Cervical stenosis of spine M48.02 [place] [address] [address] Aug, Type 2 diabetes mellitus with other spec ified complication E11.69 [place] [address] [address] May, [place] [address] [address] Apr, [place] [address] [address] Apr, Dehydration E86.0 ; Acute renal failure, unspecified acute renal failure type N17.9 ; Cannabis abuse F12.10 ; Type 2 diabetes mellitus with other specified complication E11.69 ; HTN (hypertension) I10 ; Parkinsons disease G20 ; Hypercholesterolemia E78.0 ; Atherosclerotic heart disease of [place] coronary artery without angina pectoris I25.10 ; Cervicalgia M54.2 ; Need for hepatitis C screening test Z11.59 and Recurrent major depressive disorder, in full remission F33.42 [place] [address] [address] Apr, [place] [address] [address] Apr, Dehydration E86.0 ; Hypotension, unspeci fied hypotension type I95.9 ; Fall, initial encounter W19.XXXA ; Acute head injury without loss of consciousness, initial encounter S09.90XA ; Type 2 diabetes mellitus with other specified complication E11.69 ; HTN (hypertension) I10 and Parkinsons disease G20 [place] [address] [address] Apr, [place] [address] [address] Apr, [place] [address] [address] 13 Feb, 2018 Cervicalgia M54.2 [facility] [address] [address] Feb, Cervical stenosis of spine M48.02 [facility] [address] [address] Jan, Cervicalgia M54.2 [facility] [address] [address] Jan, Acute right-sided low back pain with rig ht-sided sciatica M54.41 [facility] [address] [address] Dec, Cervicalgia M54.2 [facility] [address] [address] Dec, Controlled substance agreement signed Z7 9.899 [place] [address] [address] Oct, Cervicalgia M54.2 [facility] [address] [address] 11 Oct, 2017 Acute right-sided low back pain with rig ht-sided sciatica M54.41 [facility] [address] [address] 04 Oct, 2017 [facility] [address] [address] 28 Sep, 2017 Cervicalgia M54.2 [facility] [address] [address] 14 Sep, 2017 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 [facility] [address] [address] 13 Sep, 2017 Lumbar back pain with radiculopathy affe cting right lower extremity M54.17 [facility] [address] [address] 03 Sep, 2017 Acute right-sided low back pain with rig ht-sided sciatica M54.41 [facility] [address] [address] Aug, Type 2 diabetes mellitus with other spec ified complication E11.69 ; HTN (hypertension) I10 ; Cervicalgia M54.2 ; Cervical stenosis of spine M48.02 ; Acute right hip pain M25.551 ; Atherosclerotic heart disease of [place] coronary artery without angina pectoris I25.10 ; Hypercholesterolemia E78.0 ; Parkinsons disease G20 and Depression F32.9 [facility] [address] [address] Aug, Other chronic pain G89.29 [place] [address] [address] Jul, Other chronic pain G89.29 [place] [address] [address] Jul, [facility] [address] [facility] [id number] [place] [address] Jul, Cough R05 and Bronchitis J40 [place] [address] [address] Jun, Other chronic pain G89.29 [facility] [address] [address] Jun, [place] [address] [address] Jun, Atherosclerotic heart disease of [place] coronary artery without angina pectoris I25.10 and Cervicalgia M54.2 [facility] [address] [address] Jun, Cervicalgia M54.2 [place] [address] [address] May, Other chronic pain G89.29 [facility] [address] [address] May, [place] [id number] [place] [address] 14 May, 2017 [facility] [address] [address] May, [facility] [address] [address] May, [facility] [address] [address] May, Type 2 diabetes mellitus with other spec ified complication E11.69 ; HTN (hypertension) I10 ; Atherosclerotic heart disease of [place] coronary artery without angina pectoris I25.10 ; Parkinsons disease G20 and Cervical stenosis of spine M48.02 [place] [address] [address] Apr, Cervicalgia M54.[address] [address] Apr, Type 2 diabetes mellitus with other spec ified complication E11.69 ; HTN (hypertension) I10 ; Depression F32.9 ; Atherosclerotic heart disease of [place] coronary artery without angina pectoris I25.10 ; Coronary atherosclerosis due to lipid rich plaque I25.83 ; Cervicalgia M54.2 ; Parkinsons disease G20 ; Chronic diarrhea K52.9 and Pure hypercholesterolemia E78.00 [place] [address] [address] March, Other chronic pain G89.29 [place] [address] [address] March, Other chronic pain G89.29 [place] [address] [address] Feb, Cervical stenosis of spine M48.02 [place] [address] [address] Feb, Other chronic pain G89.29 [facility] [address] [address] Jan, [facility] [address] [address] 08 Jan, 2017 Other chronic pain G89.29 [facility] [address] [address] Jan, Other chronic pain G89.29 [facility] [address] [address] Jan, Type 2 diabetes mellitus with other spec ified complication E11.69 ; Atherosclerotic heart disease of [place] coronary artery without angina pectoris I25.10 ; Anxiety F41.9 ; HTN (hypertension) I10 ; Depression F32.9 ; Coronary atherosclerosis due to lipid rich plaque I25.83 ; Cervicalgia M54.2 ; Other chronic pain G89.29 and Functional 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 [place] [address] [address] Nov, HTN (hypertension) I10 [place] [address] [address] Nov, Type 2 diabetes mellitus with other spec ified complication E11.69 ; Atherosclerotic heart disease of [place] coronary artery without angina pectoris I25.10 ; Hypercholesterolemia E78.0 ; Anxiety F41.9 ; Depression F32.9 ; Cervicalgia M54.2 and Functional 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 [facility] [address] [address] Oct, [facility] [address] [address] Oct, Neck pain M54.2 [facility] [address] [address] Sep, [facility] [address] [address] Aug, [place] [address] [address] Aug, [facility] [address] [facility] [id number] [place] [address] Jul, Visit for TB skin test Z11.1 and Screening for tuberculosis Z11.1 [facility] [address] [address] May, [facility] [address] [address] May, Neck pain M54.2 [facility] [address] [address] May, [facility] [address] [address] Apr, Neck pain M54.2 [facility] [address] [address] Feb, Neck pain M54.2 [facility] [address] [address] Feb, [facility] [address] [address] Jan, Neck pain M54.2 [facility] [address] [address] Jan, [facility] [address] [address] Jan, Neck pain M54.2 [facility] [address] [address] Jan, Neck pain M54.2 ; Type 2 diabetes mellit us with other specified complication E11.69 ; CAD (coronary artery disease) 414.00 ; Insomnia 780.52 ; Anxiety F41.9 ; Depression F32.9 ; Pre-ulcerative calluses L84 and Hypercholesterolemia E78.0 [facility] [address] [address] Nov, [facility] [address] [address] Nov, Type 2 diabetes mellitus with other spec ified complication E11.69 ; Pre-ulcerative calluses L84 ; HTN (hypertension) I10 ; Hypercholesterolemia E78.0 ; Anxiety F41.9 ; Depression F32.9 ; Environmental allergies Z91.09 and Osteoarthritis M19.[address] [address] Sep, [address] [address] Aug, Allergic rhinitis, seasonal J30.[address] [address] Jul, [address] [address] Jul, Other specified cardiac dysrhythmias 427 .89 ; Essential hypertension, benign 401.1 ; Nondependent tobacco use disorder 305.1 ; Unspecified hereditary and idiopathic peripheral neuropathy 356.9 ; Diabetes mellitus without mention of complication, type II or unspecified type, not stated as uncontrolled 250.00 ; CAD (coronary artery disease) 414.00 ; Insomnia 780.52 and Depression [address] [address] Jul, [address] [address] Jul, [address] [address] May, [address] [address] May, [address] [address] May, [address] [address] Apr, [address] [address] Apr, Skin lesion of face 709.9 and Anxiety [address] [address] March, [address] [address] 14 Feb, 2015 [facility] [address] [id number] [place] [address] 13 Feb, 2015 [facility] [address] [id number] [place] [address] 20 Jan, 2015 [facility] [address] [id number] [place] [address] Jan, [facility] [address] [id number] [place] [address] Jan, [facility] [address] [facility] [id number] [place] [address] Jan, [facility] [address] [id number] [place] [address] Jan, [facility] [address] [id number] [place] [address] Jan, [facility] [address] [id number] [place] [address] Dec, [facility] [address] [id number] [place] [address] Dec, [facility] [address] [id number] [place] [address] Nov, [facility] [address] [id number] [place] [address] Nov, [facility] [address] [id number] [place] [address] Oct, [facility] [address] [id number] [place] [address] Oct, [facility] [address] [id number] [place] [address] Oct, [facility] [address] [id number] [place] [address] Oct, [facility] [address] [id number] [place] [address] Sep, [facility] [address] [id number] [place] [address] Sep, [facility] [address] [id number] [place] [address] Sep, [facility] [address] [id number] [place] [address] Sep, [facility] [address] [id number] [place] [address] Sep, [facility] [address] [id number] [place] [address] Sep, [facility] [address] [id number] [place] [address] Aug, [facility] [address] [id number] [place] [address] Aug, [facility] [address] [id number] [place] [address] Aug, [facility] [address] [id number] [place] [address] Aug, [facility] [address] [id number] [place] [address] Aug, [facility] [address] [id number] [place] [address] Aug, [facility] [address] [id number] [place] [address] Aug, [facility] [address] [id number] [place] [address] Aug, [facility] [address] [id number] [place] [address] Aug, [facility] [id number] [place] [address] Aug, [facility] [address] [id number] [place] [address] 05 Jul, 2014 [facility] [address] [id number] [place] [address] Jul, [facility] [address] [facility] [id number] [place] [address] May, [facility] [address] [id number] [place] [address] May, [facility] [address] [id number] [place] [address] May, [facility] [address] [id number] [place] [address] May, [facility] [address] [id number] [place] [address] May, [facility] [address] [id number] [place] [address] May, [facility] [address] [id number] [place] [address] Apr, [facility] [address] [id number] [place] [address] Apr, [facility] [address] [id number] [place] [address] Apr, [facility] [address] [id number] [place] [address] Apr, [facility] [address] [id number] [place] [address] March, [facility] [address] [id number] [place] [address] March, [facility] [address] [id number] [place] [address] Feb, [facility] [address] [id number] [place] [address] Feb, [facility] [address] [id number] [place] [address] Jan, [facility] [address] [id number] [place] [address] Jan, [facility] [address] [id number] [place] [address] Nov, [facility] [address] [facility] [id number] [place] [address] Nov, [facility] [address] [facility] [id number] [place] [address] Nov, [facility] [address] [id number] [place] [address] Nov, [facility] [address] [id number] [place] [address] Nov, [facility] [address] [facility] [id number] [place] [address] Nov, [facility] [address] [id number] [place] [address] Oct, [facility] [address] [id number] [place] [address] Oct, [facility] [address] [id number] [place] [address] Aug, [facility] [address] [id number] [place] [address] Aug, [facility] [address] [id number] [place] [address] Jul, [facility] [address] [id number] [place] [address] Jun, [facility] [address] [id number] [place] [address] Jun, [facility] [address] [id number] [place] [address] Jun, [facility] [address] [id number] [place] [address] Jun, [facility] [address] [id number] [place] [address] Jun, [facility] [address] [id number] [place] [address] Jun, [facility] [address] [id number] [place] [address] May, [facility] [address] [id number] [place] [address] March, [facility] [address] [id number] [place] [address] March, [facility] [address] [id number] [place] [address] Jan, IMMUNIZATIONS No Known Immunizations SOCIAL HISTORY [...] cyst Hospitalization History surgery Hospitalization History [facility]- Right Leg Pain 09/21/2017 Hospitalization History [facility]- Severe Dehydr ation with Acute Renal Failure 05/06/2018 Hospitalization History Back surgery to remove cyst/ infecti on
--- OUTSIDE RECORDS SUMMARY | 2020-03-23 00:55 | XMS REPORT ---
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 Active 613082167 Problem Cervicalgia M54.2 Active 90531638 4505172 Problem Cervical stenosis of spine M48.02 Act cynthia 02402773 Problem Other chronic pain G89.29 Active 8 6833340 Problem 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 Active 136965595 Problem Lumbar spondylosis M47.816 Active 2 48016015 Problem Recurrent major depressive disorder, in full remission F33.42 Active 425857127 Problem Current mild episode of major depressive disorder without prior episode F32.0 Active 04849870 Problem Hypercholesterolemia E78.0 Active 74266209 Problem Parkinson disease G20 Active 49 837465 Problem Parkinsons disease G20 Active 4 4887176 Problem Cannabis abuse F12.10 Active 36647 009 Problem Generalized anxiety disorder F41.1 A ctive 04805016 Problem Panic F41.0 Active 04143826 Problem Carpal tunnel syndrome, right G56.01 Active [id number] ALLERGIES No Information ENCOUNTERS Encounter Location Date Diagnosis [facility] [address] [address] Oct, Cellulitis of toe of left foot L03.032 [facility] [id number] [place] [address] Aug, Carpal tunnel syndrome, right G56.01 [facility] [address] [address] Aug, Wrist pain, right M25.531 ; Parkinson di sease G20 and Current mild episode of major depressive disorder without prior episode F32.0 [place] [address] [address] Jun, Carpal tunnel syndrome, right G56.01 [address] [address] [place] [address] May, Parkinsons disease G20 ; Hyp ercholesterolemia E78.0 and HTN (hypertension) I10 [place] [address] [address] May, Tenosynovitis, de Quervain M65.4 ; Type 2 diabetes mellitus with other specified complication E11.69 ; Lumbar spondylosis M47.816 and HTN (hypertension) I10 [place] [address] [address] March, [address] [place] [address] Jan, [place] [address] [address] Dec, Hypercholesterolemia E78.0 [place] [address] [address] Nov, HTN (hypertension) I10 [place] [address] [address] Oct, Generalized anxiety disorder F41.1 and P anic F41.0 [place] [address] [address] Oct, Generalized anxiety disorder F41.1 and P anic F41.0 [place] [address] [address] Aug, Cervicalgia M54.2 [place] [address] [address] Aug, Type 2 diabetes mellitus with other spec ified complication E11.69 ; HTN (hypertension) I10 ; Parkinsons disease G20 ; 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 ; Hypercholesterolemia E78.0 and Cervical stenosis of spine M48.02 [place] [address] [address] Aug, Type 2 diabetes mellitus with other spec ified complication E11.69 [place] [address] [address] May, [place] [address] [address] Apr, [place] [address] [address] Apr, Dehydration E86.0 ; Acute renal failure, unspecified acute renal failure type N17.9 ; Cannabis abuse F12.10 ; Type 2 diabetes mellitus with other specified complication E11.69 ; HTN (hypertension) I10 ; Parkinsons disease G20 ; Hypercholesterolemia E78.0 ; 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 ; Cervicalgia M54.2 ; Need for hepatitis C screening test Z11.59 and Recurrent major depressive disorder, in full remission F33.42 [place] [address] [address] Apr, [place] [address] [address] Apr, Dehydration E86.0 ; Hypotension, unspeci fied hypotension type I95.9 ; Fall, initial encounter W19.XXXA ; Acute head injury without loss of consciousness, initial encounter S09.90XA ; Type 2 diabetes mellitus with other specified complication E11.69 ; HTN (hypertension) I10 and Parkinsons disease G20 [place] [address] [address] Apr, [place] [address] [address] Apr, [place] [address] [address] 13 Feb, 2018 Cervicalgia M54.2 [facility] [address] [address] Feb, Cervical stenosis of spine M48.02 [facility] [address] [address] Jan, Cervicalgia M54.2 [facility] [address] [address] Jan, Acute right-sided low back pain with rig ht-sided sciatica M54.41 [facility] [address] [address] Dec, Cervicalgia M54.2 [facility] [address] [address] Dec, Controlled substance agreement signed Z7 9.899 [place] [address] [address] Oct, Cervicalgia M54.2 [facility] [address] [address] 11 Oct, 2017 Acute right-sided low back pain with rig ht-sided sciatica M54.41 [facility] [address] [address] 04 Oct, 2017 [facility] [address] [address] 28 Sep, 2017 Cervicalgia M54.2 [facility] [address] [address] 14 Sep, 2017 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 [facility] [address] [address] 13 Sep, 2017 Lumbar back pain with radiculopathy affe cting right lower extremity M54.17 [facility] [address] [address] 03 Sep, 2017 Acute right-sided low back pain with rig ht-sided sciatica M54.41 [facility] [address] [address] Aug, Type 2 diabetes mellitus with other spec ified complication E11.69 ; HTN (hypertension) I10 ; Cervicalgia M54.2 ; Cervical stenosis of spine M48.02 ; Acute right hip pain M25.551 ; 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 ; Hypercholesterolemia E78.0 ; Parkinsons disease G20 and Depression F32.9 [facility] [address] [address] Aug, Other chronic pain G89.29 [place] [address] [address] Jul, Other chronic pain G89.29 [place] [address] [address] Jul, [facility] [address] [facility] [id number] [address] [place] [address] Jul, Cough R05 and Bronchitis J40 [place] [address] [address] Jun, Other chronic pain G89.29 [facility] [address] [address] Jun, [place] [address] [address] Jun, 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 and Cervicalgia M54.2 [facility] [address] [address] Jun, Cervicalgia M54.2 [place] [address] [address] May, Other chronic pain G89.29 [facility] [address] [address] May, [place] [id number] [place] [address] 14 May, 2017 [facility] [address] [address] May, [facility] [address] [address] May, [facility] [address] [address] May, Type 2 diabetes mellitus with other spec ified complication E11.69 ; HTN (hypertension) I10 ; 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 ; Parkinsons disease G20 and Cervical stenosis of spine M48.02 [place] [address] [address] Apr, Cervicalgia M54.[address] [address] Apr, Type 2 diabetes mellitus with other spec ified complication E11.69 ; HTN (hypertension) I10 ; Depression F32.9 ; 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 ; Coronary atherosclerosis due to lipid rich plaque I25.83 ; Cervicalgia M54.2 ; Parkinsons disease G20 ; Chronic diarrhea K52.9 and Pure hypercholesterolemia E78.00 [place] [address] [address] March, Other chronic pain G89.29 [place] [address] [address] March, Other chronic pain G89.29 [place] [address] [address] Feb, Cervical stenosis of spine M48.02 [place] [address] [address] Feb, Other chronic pain G89.29 [facility] [address] [address] Jan, [facility] [address] [address] 08 Jan, 2017 Other chronic pain G89.29 [facility] [address] [address] Jan, Other chronic pain G89.29 [facility] [address] [address] Jan, Type 2 diabetes mellitus with other spec ified complication E11.69 ; 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 ; Anxiety F41.9 ; HTN (hypertension) I10 ; Depression F32.9 ; Coronary atherosclerosis due to lipid rich plaque I25.83 ; Cervicalgia M54.2 ; Other chronic pain G89.29 and Functional 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 [place] [address] [address] Nov, HTN (hypertension) I10 [place] [address] [address] Nov, Type 2 diabetes mellitus with other spec ified complication E11.69 ; 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 [address] [facility] [id number] [address] [place] [address] Jul, Visit for TB skin test Z11.1 and Screening for tuberculosis Z11.1 [facility] [address] [address] May, [facility] [address] [address] May, Neck pain M54.2 [facility] [address] [address] May, [facility] [address] [address] Apr, Neck pain M54.2 [facility] [address] [address] Feb, Neck pain M54.2 [facility] [address] [address] Feb, [facility] [address] [address] Jan, Neck pain M54.2 [facility] [address] [address] Jan, [facility] [address] [address] Jan, Neck pain M54.2 [facility] [address] [address] Jan, Neck pain M54.2 ; Type 2 diabetes mellit us with other specified complication E11.69 ; CAD (coronary artery disease) 414.00 ; Insomnia 780.52 ; Anxiety F41.9 ; Depression F32.9 ; Pre-ulcerative calluses L84 and Hypercholesterolemia E78.0 [facility] [address] [address] Nov, [facility] [address] [address] Nov, Type 2 diabetes mellitus with other spec ified complication E11.69 ; Pre-ulcerative calluses L84 ; HTN (hypertension) I10 ; Hypercholesterolemia E78.0 ; Anxiety F41.9 ; Depression F32.9 ; Environmental allergies Z91.09 and Osteoarthritis M19.[address] [address] Sep, [address] [address] Aug, Allergic rhinitis, seasonal J30.[address] [address] Jul, [address] [address] Jul, Other specified cardiac dysrhythmias 427 .89 ; Essential hypertension, benign 401.1 ; Nondependent tobacco use disorder 305.1 ; Unspecified hereditary and idiopathic peripheral neuropathy 356.9 ; Diabetes mellitus without mention of complication, type II or unspecified type, not stated as uncontrolled 250.00 ; CAD (coronary artery disease) 414.00 ; Insomnia 780.52 and Depression [address] [address] Jul, [address] [address] Jul, [address] [address] May, [address] [address] May, [address] [address] May, [address] [address] Apr, [address] [address] Apr, Skin lesion of face 709.9 and Anxiety [address] [address] March, [address] [address] 14 Feb, 2015 [facility] [address] [id number] [place] [address] 13 Feb, 2015 [facility] [address] [id number] [place] [address] 20 Jan, 2015 [facility] [address] [id number] [place] [address] Jan, [facility] [address] [id number] [place] [address] Jan, [facility] [address] [facility] [id number] [place] [address] Jan, [facility] [address] [id number] [place] [address] Jan, [facility] [address] [id number] [place] [address] Jan, [facility] [address] [id number] [place] [address] Dec, [facility] [address] [id number] [place] [address] Dec, [facility] [address] [id number] [place] [address] Nov, [facility] [address] [id number] [place] [address] Nov, [facility] [address] [id number] [place] [address] Oct, [facility] [address] [id number] [place] [address] Oct, [facility] [address] [id number] [place] [address] Oct, [facility] [address] [id number] [place] [address] Oct, [facility] [address] [id number] [place] [address] Sep, [facility] [address] [id number] [place] [address] Sep, [facility] [address] [id number] [place] [address] Sep, [facility] [address] [id number] [place] [address] Sep, [facility] [address] [id number] [place] [address] Sep, [facility] [address] [id number] [place] [address] Sep, [facility] [address] [id number] [place] [address] Aug, [facility] [address] [id number] [place] [address] Aug, [facility] [address] [id number] [place] [address] Aug, [facility] [address] [id number] [place] [address] Aug, [facility] [address] [id number] [place] [address] Aug, [facility] [address] [id number] [place] [address] Aug, [facility] [address] [id number] [place] [address] Aug, [facility] [address] [id number] [place] [address] Aug, [facility] [address] [id number] [place] [address] Aug, [facility] [id number] [place] [address] Aug, [facility] [address] [id number] [place] [address] 05 Jul, 2014 [facility] [address] [id number] [place] [address] Jul, [facility] [address] [facility] [id number] [place] [address] May, [facility] [address] [id number] [place] [address] May, [facility] [address] [id number] [place] [address] May, [facility] [address] [id number] [place] [address] May, [facility] [address] [id number] [place] [address] May, [facility] [address] [id number] [place] [address] May, [facility] [address] [id number] [place] [address] Apr, [facility] [address] [id number] [place] [address] Apr, [facility] [address] [id number] [place] [address] Apr, [facility] [address] [id number] [place] [address] Apr, [facility] [address] [id number] [place] [address] March, [facility] [address] [id number] [place] [address] March, [facility] [address] [id number] [place] [address] Feb, [facility] [address] [id number] [place] [address] Feb, [facility] [address] [id number] [place] [address] Jan, [facility] [address] [id number] [place] [address] Jan, [facility] [address] [id number] [place] [address] Nov, [facility] [address] [facility] [id number] [place] [address] Nov, [facility] [address] [facility] [id number] [place] [address] Nov, [facility] [address] [id number] [place] [address] Nov, [facility] [address] [id number] [place] [address] Nov, [facility] [address] [facility] [id number] [place] [address] Nov, [facility] [address] [id number] [place] [address] Oct, [facility] [address] [id number] [place] [address] Oct, [facility] [address] [id number] [place] [address] Aug, [facility] [address] [id number] [place] [address] Aug, [facility] [address] [id number] [place] [address] Jul, [facility] [address] [id number] [place] [address] Jun, [facility] [address] [id number] [place] [address] Jun, [facility] [address] [id number] [place] [address] Jun, [facility] [address] [id number] [place] [address] Jun, [facility] [address] [id number] [place] [address] Jun, [facility] [address] [id number] [place] [address] Jun, [facility] [address] [id number] [place] [address] May, [facility] [address] [id number] [place] [address] March, [facility] [address] [id number] [place] [address] March, [facility] [address] [id number] [place] [address] Jan, IMMUNIZATIONS No Known Immunizations SOCIAL HISTORY [...] cyst Hospitalization History surgery Hospitalization History [facility]- Right Leg Pain 09/21/2017 Hospitalization History [facility]- Severe Dehydr ation with Acute Renal Failure 05/06/2018 Hospitalization History Back surgery to remove cyst/ infecti on
--- OUTSIDE RECORDS SUMMARY | 2020-03-23 00:55 | XMS REPORT ---
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 Name Role Phone GEMA TAMEZ Unavailable PROBLEMS Type Condition ICD9-CM Code ZCU28-TI Code Onset Dates Condition S tatus SNOMED Code Problem HTN (hypertension) I10 Active 3 8774872 Problem Type 2 diabetes mellitus with other specified complication E11.69 Active 0265669 Problem Atherosclerotic heart diseas e of [place] coronary artery without angina pectoris I25.10 Active 517584123 Problem Cervicalgia M54.2 Active 61989125 3950972 Problem Cervical stenosis of spine M48.02 Act cynthia 16059591 Problem Other chronic pain G89.29 Active 8 3139330 Problem 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 Active 216444362 Problem Lumbar spondylosis M47.816 Active 2 45689603 Problem Recurrent major depressive disorder, in full remission F33.42 Active 667889264 Problem Current mild episode of major depressive disorder without prior episode F32.0 Active 61000089 Problem Hypercholesterolemia E78.0 Active 27952139 Problem Parkinson disease G20 Active 49 636388 Problem Parkinsons disease G20 Active 4 8133460 Problem Cannabis abuse F12.10 Active 02243 009 Problem Generalized anxiety disorder F41.1 A ctive 47339058 Problem Panic F41.0 Active 70037013 Problem Carpal tunnel syndrome, right G56.01 Active [id number] ALLERGIES No Information ENCOUNTERS Encounter Location Date Diagnosis [facility] [address] [id number] [place] [address] 05 Apr, 2020 [facility] [address] [address] 04 Jan, 2020 Type 2 diabetes mellitus with other spec ified complication E11.69 ; HTN (hypertension) I10 and Screening for prostate cancer Z12.5 [facility] [address] [id number] [place] [address] Jan, [place] [address] [address] Jan, Type 2 diabetes mellitus with other spec ified complication E11.69 ; Parkinsons disease G20 ; Recurrent major depressive disorder, in full remission F33.42 ; Encounter for immunization Z23 ; Callus L84 ; HTN (hypertension) I10 and Screening for prostate cancer Z12.5 [place] [address] [address] Oct, Cellulitis of toe of left foot L03.032 [place] [address] [address] Aug, Carpal tunnel syndrome, right G56.01 [place] [address] [address] Aug, Wrist pain, right M25.531 ; Parkinson di sease G20 and Current mild episode of major depressive disorder without prior episode F32.0 [place] [address] [address] Jun, Carpal tunnel syndrome, right G56.01 [place] [address] [address] [place] [address] May, Parkinsons disease G20 ; Hyp ercholesterolemia E78.0 and HTN (hypertension) I10 [place] [address] [address] May, Tenosynovitis, de Quervain M65.4 ; Type 2 diabetes mellitus with other specified complication E11.69 ; Lumbar spondylosis M47.816 and HTN (hypertension) I10 [place] [address] [address] March, [address] [place] [address] Jan, [place] [address] [address] Dec, Hypercholesterolemia E78.0 [place] [address] [address] Nov, HTN (hypertension) I10 [place] [address] [address] Oct, Generalized anxiety disorder F41.1 and P anic F41.0 [place] [address] [address] Oct, Generalized anxiety disorder F41.1 and P anic F41.0 [place] [address] [address] Aug, Cervicalgia M54.[address] [address] Aug, Type 2 diabetes mellitus with other spec ified complication E11.69 ; HTN (hypertension) I10 ; Parkinsons disease G20 ; Atherosclerotic heart disease of [place] coronary artery without angina pectoris I25.10 ; Hypercholesterolemia E78.0 and Cervical stenosis of spine M48.02 [place] [address] [address] Aug, Type 2 diabetes mellitus with other spec ified complication E11.69 [place] [address] [address] May, [place] [address] [address] Apr, [address] [address] Apr, Dehydration E86.0 ; Acute renal failure, unspecified acute renal failure type N17.9 ; Cannabis abuse F12.10 ; Type 2 diabetes mellitus with other specified complication E11.69 ; HTN (hypertension) I10 ; Parkinsons disease G20 ; Hypercholesterolemia E78.0 ; Atherosclerotic heart disease of [place] coronary artery without angina pectoris I25.10 ; Cervicalgia M54.2 ; Need for hepatitis C screening test Z11.59 and Recurrent major depressive disorder, in full remission F33.[address] [address] 18 Apr, 2018 [place] [address] [address] 14 Apr, 2018 Dehydration E86.0 ; Hypotension, unspeci fied hypotension type I95.9 ; Fall, initial encounter W19.XXXA ; Acute head injury without loss of consciousness, initial encounter S09.90XA ; Type 2 diabetes mellitus with other specified complication E11.69 ; HTN (hypertension) I10 and Parkinsons disease G20 [place] [address] [address] 14 Apr, 2018 [place] [address] [address] 12 Apr, 2018 [place] [address] [address] Feb, Cervicalgia M54.2 [place] [address] [address] Feb, Cervical stenosis of spine M48.02 [place] [address] [address] Jan, Cervicalgia M54.2 [place] [address] [address] Jan, Acute right-sided low back pain with rig ht-sided sciatica M54.41 [place] [address] [address] Dec, Cervicalgia M54.2 [place] [address] [address] Dec, Controlled substance agreement signed Z7 9.899 [place] [address] [address] Oct, Cervicalgia M54.2 [place] [address] [address] Oct, Acute right-sided low back pain with rig ht-sided sciatica M54.41 [place] [address] [address] 04 Oct, 2017 [facility] [address] [address] 28 Sep, 2017 Cervicalgia M54.2 [place] [address] [address] 14 Sep, 2017 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10 ; Hypercholesterolemia E78.0 ; Parkinsons disease G20 and Depression F32.9 [place] [address] [place] [id number] [place] [address] Aug, Other chronic pain G89.29 [place] [address] [address] Jul, Other chronic pain G89.29 [facility] [address] [address] Jul, [facility] [address] [facility] [id number] [place] [address] Jul, Cough R05 and Bronchitis J40 [facility] [address] [place] [id number] [place] [address] Jun, Other chronic pain G89.29 [place] [address] [address] Jun, [facility] [address] [address] Jun, Atherosclerotic heart disease of [place] coronary artery without angina pectoris I25.10 and Cervicalgia M54.2 [facility] [address] [address] Jun, Cervicalgia M54.2 [facility] [address] [address] May, Other chronic pain G89.29 [place] [address] [address] May, [place] [address] [address] May, [place] [address] [address] May, [facility] [address] [address] May, [facility] [address] [address] May, Type 2 diabetes mellitus with other spec ified complication E11.69 ; HTN (hypertension) I10 ; Atherosclerotic heart disease of [place] coronary artery without angina pectoris I25.10 ; Parkinsons disease G20 and Cervical stenosis of spine M48.02 [place] [address] [address] Apr, Cervicalgia M54.2 [facility] [address] [address] Apr, Type 2 diabetes mellitus with other spec ified complication E11.69 ; HTN (hypertension) I10 ; Depression F32.9 ; Atherosclerotic heart disease of [place] coronary artery without angina pectoris I25.10 ; Coronary atherosclerosis due to lipid rich plaque I25.83 ; Cervicalgia M54.2 ; Parkinsons disease G20 ; Chronic diarrhea K52.9 and Pure hypercholesterolemia E78.00 [place] [address] [address] March, Other chronic pain G89.29 [place] [address] [address] March, Other chronic pain G89.29 [place] [address] [address] Feb, Cervical stenosis of spine M48.02 [place] [address] [address] Feb, Other chronic pain G89.29 [place] [address] [address] Jan, [place] [address] [address] Jan, Other chronic pain G89.29 [place] [address] [address] Jan, Other chronic pain G89.29 [place] [address] [address] Jan, Type 2 diabetes mellitus with other spec ified complication E11.69 ; Atherosclerotic heart disease of [place] coronary artery without angina pectoris I25.10 ; Anxiety F41.9 ; HTN (hypertension) I10 ; Depression F32.9 ; Coronary atherosclerosis due to lipid rich plaque I25.83 ; Cervicalgia M54.2 ; Other chronic pain G89.29 and Functional 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 [place] [address] [address] Nov, HTN (hypertension) I10 [place] [address] [address] Nov, Type 2 diabetes mellitus with other spec ified complication E11.69 ; Atherosclerotic heart disease of [place] coronary artery without angina pectoris I25.10 ; Hypercholesterolemia E78.0 ; Anxiety F41.9 ; Depression F32.9 ; Cervicalgia M54.2 and Functional 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 [place] [address] [address] Oct, [facility] [address] [id number] [place] [address] Oct, Neck pain M54.2 [facility] [address] [id number] [place] [address] Sep, [facility] [address] [place] [id number] [place] [address] Aug, [facility] [address] [place] [id number] [place] [address] Aug, [facility] [address] [facility] [id number] [place] [address] Jul, Visit for TB skin test Z11.1 and Screening for tuberculosis Z11.1 [facility] [address] [place] [id number] [place] [address] May, [facility] [address] [place] [id number] [place] [address] May, Neck pain M54.2 [facility] [address] [place] [id number] [place] [address] May, [facility] [address] [place] [id number] [place] [address] Apr, Neck pain M54.2 [facility] [address] [place] [id number] [place] [address] Feb, Neck pain M54.2 [facility] [address] [place] [id number] [place] [address] Feb, [facility] [address] [place] [id number] [place] [address] 30 Jan, 2016 Neck pain M54.2 [facility] [address] [place] [id number] [place] [address] 17 Jan, 2016 [facility] [address] [place] [id number] [place] [address] 16 Jan, 2016 Neck pain M54.[address] [facility] [address] Jan, Neck pain M54.2 ; Type 2 diabetes mellit us with other specified complication E11.69 ; CAD (coronary artery disease) 414.00 ; Insomnia 780.52 ; Anxiety F41.9 ; Depression F32.9 ; Pre-ulcerative calluses L84 and Hypercholesterolemia E78.[address] [address] Nov, [address] [address] Nov, Type 2 diabetes mellitus with other spec ified complication E11.69 ; Pre-ulcerative calluses L84 ; HTN (hypertension) I10 ; Hypercholesterolemia E78.0 ; Anxiety F41.9 ; Depression F32.9 ; Environmental allergies Z91.09 and Osteoarthritis M19.[address] [address] Sep, [address] [address] Aug, Allergic rhinitis, seasonal J30.[address] [address] Jul, [address] [address] Jul, Other specified cardiac dysrhythmias 427 .89 ; Essential hypertension, benign 401.1 ; Nondependent tobacco use disorder 305.1 ; Unspecified hereditary and idiopathic peripheral neuropathy 356.9 ; Diabetes mellitus without mention of complication, type II or unspecified type, not stated as uncontrolled 250.00 ; CAD (coronary artery disease) 414.00 ; Insomnia 780.52 and Depression [address] [address] Jul, [address] [address] Jul, [address] [address] May, [facility] [address] [id number] [place] [address] May, [facility] [address] [place] [id number] [place] [address] May, [facility] [address] [place] [id number] [place] [address] Apr, [facility] [address] [place] [id number] [place] [address] Apr, Skin lesion of face 709.9 and Anxiety 30 0.00 [facility] [address] [place] [id number] [place] [address] March, [facility] [address] [place] [id number] [place] [address] Feb, [facility] [address] [place] [id number] [place] [address] Feb, [facility] [address] [place] [id number] [place] [address] Jan, [facility] [address] [place] [id number] [place] [address] Jan, [facility] [address] [place] [address] [id number] [place] [address] Jan, [facility] [address] [id number] [place] [address] Jan, [facility] [address] [place] [id number] [place] [address] Jan, [facility] [address] [place] [id number] [place] [address] Jan, [facility] [address] [place] [address] [id number] [place] [address] Dec, [facility] [address] [place] [id number] [place] [address] Dec, [facility] [address] [place] [id number] [place] [address] Nov, [facility] [address] [id number] [place] [address] Nov, [facility] [address] [id number] [place] [address] Oct, [facility] [address] [id number] [place] [address] Oct, [facility] [address] [id number] [place] [address] Oct, [facility] [address] [id number] [place] [address] Oct, [facility] [address] [id number] [place] [address] Sep, [facility] [address] [id number] [place] [address] Sep, [facility] [address] [id number] [place] [address] Sep, [facility] [address] [id number] [place] [address] Sep, [facility] [address] [id number] [place] [address] Sep, [facility] [address] [id number] [place] [address] Sep, [facility] [address] [id number] [place] [address] Aug, [facility] [address] [id number] [place] [address] Aug, [facility] [address] [id number] [place] [address] Aug, [facility] [address] [place] [id number] [place] [address] Aug, [facility] [address] [id number] [place] [address] Aug, [facility] [address] [id number] [place] [address] Aug, [facility] [address] [facility] [id number] [place] [address] Aug, [facility] [address] [facility] [id number] [place] [address] Aug, [facility] [address] [id number] [place] [address] Aug, [facility] [address] [id number] [place] [address] Aug, [facility] [address] [facility] [id number] [place] [address] Jul, [facility] [address] [id number] [place] [address] Jul, [facility] [address] [id number] [place] [address] May, [facility] [address] [id number] [place] [address] May, [facility] [address] [id number] [place] [address] May, [facility] [address] [id number] [place] [address] May, [facility] [address] [id number] [place] [address] May, [facility] [address] [id number] [place] [address] May, [facility] [address] [id number] [place] [address] Apr, [facility] [address] [id number] [place] [address] Apr, [facility] [address] [id number] [place] [address] Apr, [facility] [address] [id number] [place] [address] Apr, [facility] [address] [id number] [place] [address] March, [facility] [address] [id number] [place] [address] March, [facility] [address] [id number] [place] [address] Feb, [facility] [address] [id number] [place] [address] Feb, [facility] [address] [id number] [place] [address] Jan, [facility] [address] [id number] [place] [address] Jan, [facility] [address] [id number] [place] [address] Nov, [facility] [address] [id number] [place] [address] Nov, [facility] [address] [id number] [place] [address] Nov, [facility] [address] [id number] [place] [address] Nov, [facility] [address] [id number] [place] [address] Nov, [facility] [address] [id number] [place] [address] Nov, [facility] [address] [id number] [place] [address] Oct, [facility] [address] [id number] [place] [address] Oct, [facility] [address] [id number] [place] [address] Aug, [facility] [address] [id number] [place] [address] Aug, [facility] [address] [id number] [place] [address] Jul, [facility] [id number] [place] [address] Jun, [facility] [id number] [place] [address] Jun, [facility] [id number] [place] [address] Jun, [facility] [id number] [place] [address] Jun, [facility] [address] [address] Jun, [facility] [address] [address] Jun, [facility] [address] [address] May, [facility] [address] [address] March, [facility] [id number] [place] [address] March, [facility] [id number] [place] [address] Jan, IMMUNIZATIONS No Known Immunizations SOCIAL HISTORY [...] Hospitalization History [facility]- Right Leg Pain 09/21/2017 Hospitalization History [facility]- Severe Dehydr ation with Acute Renal Failure 05/06/2018 Hospitalization History Back surgery to remove cyst/ infecti on
--- OUTSIDE RECORDS SUMMARY | 2020-03-23 00:55 | XMS REPORT ---
Author Author Zoran OLIVER NA [facility] Organization [facility] Address [address] [place] [address] Care Team Providers Care Inventory Management Specialist Name Role Phone ANTWON ETIENNEMARS Unavailable PROBLEMS Type Condition ICD9-CM Code [id number] Code Onset Dates Condition S tatus SNOMED Code Problem HTN (hypertension) I10 Active 3 9286041 Problem Type 2 diabetes mellitus with other specified complication E11.69 Active 8917951 Problem Atherosclerotic heart diseas e of [place] coronary artery without angina pectoris I25.10 Active 919646805 Problem Cervicalgia M54.2 Active 22589924 8204945 Problem Cervical stenosis of spine M48.02 Act cynthia 03586159 Problem Other chronic pain G89.29 Active 8 3189735 Problem 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 Active 255752105 Problem Lumbar spondylosis M47.816 Active 2 60851014 Problem Recurrent major depressive disorder, in full remission F33.42 Active 038505804 Problem Current mild episode of major depressive disorder without prior episode F32.0 Active 07516230 Problem Hypercholesterolemia E78.0 Active 36187480 Problem Parkinson disease G20 Active 49 608937 Problem Parkinsons disease G20 Active 4 9076015 Problem Cannabis abuse F12.10 Active 11060 009 Problem Generalized anxiety disorder F41.1 A ctive 13819661 Problem Panic F41.0 Active 21981091 Problem Carpal tunnel syndrome, right G56.01 Active [id number] ALLERGIES No Information ENCOUNTERS Encounter Location Date Diagnosis [facility] [id number] [place] [address] Jan, Parkinsons disease G20 ; Recurrent major depressive disorder, in full remission F33.42 and Type 2 diabetes mellitus with other specified complication E11.69 [facility] [address] [id number] [place] [address] Oct, Cellulitis of toe of left foot L03.032 [facility] [address] [address] Aug, Carpal tunnel syndrome, right G56.01 [facility] [address] [address] Aug, Wrist pain, right M25.531 ; Parkinson di sease G20 and Current mild episode of major depressive disorder without prior episode F32.0 [place] [address] [address] Jun, Carpal tunnel syndrome, right G56.01 [address] [address] May, Parkinsons disease G20 ; Hyp ercholesterolemia E78.0 and HTN (hypertension) I10 [place] [address] [address] May, Tenosynovitis, de Quervain M65.4 ; Type 2 diabetes mellitus with other specified complication E11.69 ; Lumbar spondylosis M47.816 and HTN (hypertension) I10 [place] [address] [address] March, [address] [place] [address] Jan, [place] [address] [address] Dec, Hypercholesterolemia E78.0 [place] [address] [address] Nov, HTN (hypertension) I10 [place] [address] [address] Oct, Generalized anxiety disorder F41.1 and P anic F41.0 [facility] [address] [address] Oct, Generalized anxiety disorder F41.1 and P anic F41.0 [place] [address] [address] Aug, Cervicalgia M54.[address] [address] Aug, Type 2 diabetes mellitus with other spec ified complication E11.69 ; HTN (hypertension) I10 ; Parkinsons disease G20 ; Atherosclerotic heart disease of [place] coronary artery without angina pectoris I25.10 ; Hypercholesterolemia E78.0 and Cervical stenosis of spine M48.02 [place] [address] [address] Aug, Type 2 diabetes mellitus with other spec ified complication E11.[address] [address] May, [place] [address] [address] Apr, [address] [address] Apr, Dehydration E86.0 ; Acute renal failure, unspecified acute renal failure type N17.9 ; Cannabis abuse F12.10 ; Type 2 diabetes mellitus with other specified complication E11.69 ; HTN (hypertension) I10 ; Parkinsons disease G20 ; Hypercholesterolemia E78.0 ; Atherosclerotic heart disease of [place] coronary artery without angina pectoris I25.10 ; Cervicalgia M54.2 ; Need for hepatitis C screening test Z11.59 and Recurrent major depressive disorder, in full remission F33.42 [place] [address] [address] Apr, [address] [address] Apr, Dehydration E86.0 ; Hypotension, unspeci fied hypotension type I95.9 ; Fall, initial encounter W19.XXXA ; Acute head injury without loss of consciousness, initial encounter S09.90XA ; Type 2 diabetes mellitus with other specified complication E11.69 ; HTN (hypertension) I10 and Parkinsons disease G20 [address] [place] [address] 14 Apr, 2018 [facility] [address] [address] 12 Apr, 2018 [facility] [address] [address] Feb, Cervicalgia M54.2 [facility] [address] [address] Feb, Cervical stenosis of spine M48.02 [facility] [address] [address] Jan, Cervicalgia M54.2 [place] [address] [address] Jan, Acute right-sided low back pain with rig ht-sided sciatica M54.41 [place] [address] [address] Dec, Cervicalgia M54.2 [place] [address] [address] Dec, Controlled substance agreement signed Z7 9.899 [place] [address] [address] Oct, Cervicalgia M54.2 [place] [address] [address] Oct, Acute right-sided low back pain with rig ht-sided sciatica M54.41 [facility] [address] [address] Oct, [facility] [address] [address] Sep, Cervicalgia M54.2 [facility] [address] [address] 14 Sep, 2017 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 [place] [address] [address] Sep, Lumbar back pain with radiculopathy affe cting right lower extremity M54.17 [place] [address] [address] 03 Sep, 2017 Acute right-sided low back pain with rig ht-sided sciatica M54.41 [facility] [address] [address] Aug, Type 2 diabetes mellitus with other spec ified complication E11.69 ; HTN (hypertension) I10 ; Cervicalgia M54.2 ; Cervical stenosis of spine M48.02 ; Acute right hip pain M25.551 ; Atherosclerotic heart disease of [place] coronary artery without angina pectoris I25.10 ; Hypercholesterolemia E78.0 ; Parkinsons disease G20 and Depression F32.9 [place] [address] [address] Aug, Other chronic pain G89.29 [place] [address] [address] Jul, Other chronic pain G89.29 [place] [address] [address] Jul, [facility] [address] [facility] [id number] [place] [address] Jul, Cough R05 and Bronchitis J40 [place] [address] [address] Jun, Other chronic pain G89.29 [facility] [address] [address] Jun, [place] [address] [address] Jun, Atherosclerotic heart disease of [place] coronary artery without angina pectoris I25.10 and Cervicalgia M54.2 [place] [address] [address] Jun, Cervicalgia M54.2 [place] [address] [address] May, Other chronic pain G89.29 [place] [address] [address] May, [facility] [address] [address] May, [place] [address] [address] May, [place] [address] [address] May, [place] [address] [address] May, Type 2 diabetes mellitus with other spec ified complication E11.69 ; HTN (hypertension) I10 ; Atherosclerotic heart disease of [place] coronary artery without angina pectoris I25.10 ; Parkinsons disease G20 and Cervical stenosis of spine M48.02 [place] [address] [address] Apr, Cervicalgia M54.2 [place] [address] [address] Apr, Type 2 diabetes mellitus with other spec ified complication E11.69 ; HTN (hypertension) I10 ; Depression F32.9 ; Atherosclerotic heart disease of [place] coronary artery without angina pectoris I25.10 ; Coronary atherosclerosis due to lipid rich plaque I25.83 ; Cervicalgia M54.2 ; Parkinsons disease G20 ; Chronic diarrhea K52.9 and Pure hypercholesterolemia E78.00 [place] [id number] [place] [address] March, Other chronic pain G89.29 [place] [address] [address] March, Other chronic pain G89.29 [place] [address] [address] Feb, Cervical stenosis of spine M48.02 [place] [address] [address] Feb, Other chronic pain G89.29 [facility] [address] [address] Jan, [facility] [address] [address] Jan, Other chronic pain G89.29 [facility] [address] [address] Jan, Other chronic pain G89.29 [facility] [address] [address] Jan, Type 2 diabetes mellitus with other spec ified complication E11.69 ; Atherosclerotic heart disease of [place] coronary artery without angina pectoris I25.10 ; Anxiety F41.9 ; HTN (hypertension) I10 ; Depression F32.9 ; Coronary atherosclerosis due to lipid rich plaque I25.83 ; Cervicalgia M54.2 ; Other chronic pain G89.29 and Functional 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 [place] [address] [address] Nov, HTN (hypertension) I10 [place] [address] [address] Nov, Type 2 diabetes mellitus with other spec ified complication E11.69 ; Atherosclerotic heart disease of [place] coronary artery without angina pectoris I25.10 ; Hypercholesterolemia E78.0 ; Anxiety F41.9 ; Depression F32.9 ; Cervicalgia M54.2 and Functional 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 [place] [address] [address] Oct, [facility] [address] [address] Oct, Neck pain M54.2 [place] [address] [address] Sep, [facility] [address] [address] Aug, [place] [address] [place] [address] Aug, [facility] [address] [facility] [id number] [place] [address] Jul, Visit for TB skin test Z11.1 and Screening for tuberculosis Z11.1 [facility] [id number] [place] [address] May, [facility] [address] [address] May, Neck pain M54.2 [facility] [address] [address] May, [facility] [address] [address] Apr, Neck pain M54.2 [facility] [address] [address] Feb, Neck pain M54.2 [facility] [address] [address] Feb, [facility] [address] [address] Jan, Neck pain M54.2 [facility] [address] [address] Jan, [place] [address] [address] Jan, Neck pain M54.2 [facility] [address] [address] 08 Jan, 2016 Neck pain M54.2 ; Type 2 diabetes mellit us with other specified complication E11.69 ; CAD (coronary artery disease) 414.00 ; Insomnia 780.52 ; Anxiety F41.9 ; Depression F32.9 ; Pre-ulcerative calluses L84 and Hypercholesterolemia E78.0 [facility] [address] [address] Nov, [facility] [address] [address] Nov, Type 2 diabetes mellitus with other spec ified complication E11.69 ; Pre-ulcerative calluses L84 ; HTN (hypertension) I10 ; Hypercholesterolemia E78.0 ; Anxiety F41.9 ; Depression F32.9 ; Environmental allergies Z91.09 and Osteoarthritis M19.90 [place] [address] [address] Sep, [address] [address] Aug, Allergic rhinitis, seasonal J30.[address] [address] Jul, [address] [address] Jul, Other specified cardiac dysrhythmias 427 .89 ; Essential hypertension, benign 401.1 ; Nondependent tobacco use disorder 305.1 ; Unspecified hereditary and idiopathic peripheral neuropathy 356.9 ; Diabetes mellitus without mention of complication, type II or unspecified type, not stated as uncontrolled 250.00 ; CAD (coronary artery disease) 414.00 ; Insomnia 780.52 and Depression [address] [address] Jul, [address] [address] Jul, [address] [place] [address] May, [address] [address] May, [address] [address] May, [address] [address] Apr, [place] [place] [address] [address] Apr, Skin lesion of face 709.9 and Anxiety 30 0.00 [facility] [address] [id number] [place] [address] March, [facility] [id number] [place] [address] Feb, [facility] [address] [id number] [place] [address] Feb, [facility] [id number] [place] [address] Jan, [facility] [address] [id number] [place] [address] Jan, [facility] [id number] [place] [address] Jan, [facility] [address] [id number] [place] [address] Jan, [facility] [id number] [place] [address] Jan, [facility] [address] [id number] [place] [address] Jan, [facility] [id number] [place] [address] Dec, [facility] [address] [id number] [place] [address] Dec, [facility] [id number] [place] [address] Nov, [facility] [address] [id number] [place] [address] Nov, [facility] [id number] [place] [address] Oct, [facility] [address] [id number] [place] [address] Oct, [facility] [id number] [place] [address] Oct, [facility] [id number] [place] [address] Oct, [facility] [address] [id number] [place] [address] Sep, [facility] [address] [id number] [place] [address] Sep, [facility] [address] [id number] [place] [address] Sep, [facility] [address] [id number] [place] [address] Sep, [facility] [address] [id number] [place] [address] Sep, [facility] [address] [id number] [place] [address] Sep, [facility] [address] [id number] [place] [address] Aug, [facility] [address] [id number] [place] [address] Aug, [facility] [address] [id number] [place] [address] Aug, [facility] [address] [id number] [place] [address] Aug, [facility] [address] [id number] [place] [address] Aug, [facility] [address] [id number] [place] [address] Aug, [facility] [address] [id number] [place] [address] Aug, [facility] [id number] [place] [address] Aug, [facility] [address] [id number] [place] [address] Aug, [facility] [address] [id number] [place] [address] Aug, [facility] [address] [facility] [id number] [place] [address] Jul, [facility] [address] [id number] [place] [address] Jul, [facility] [address] [id number] [place] [address] May, [facility] [address] [id number] [place] [address] May, [facility] [address] [id number] [place] [address] May, [facility] [address] [id number] [place] [address] May, [facility] [address] [id number] [place] [address] May, [facility] [address] [id number] [place] [address] May, [facility] [address] [id number] [place] [address] Apr, [facility] [address] [id number] [place] [address] Apr, [facility] [address] [id number] [place] [address] Apr, [facility] [address] [id number] [place] [address] Apr, [facility] [address] [id number] [place] [address] March, [facility] [address] [id number] [place] [address] March, [facility] [address] [id number] [place] [address] Feb, [facility] [address] [id number] [place] [address] Feb, [facility] [address] [id number] [place] [address] Jan, [facility] [address] [facility] [id number] [place] [address] Jan, [facility] [address] [id number] [place] [address] Nov, [facility] [address] [id number] [place] [address] Nov, [facility] [address] [id number] [place] [address] Nov, [facility] [address] [facility] [id number] [place] [address] Nov, [facility] [address] [id number] [place] [address] Nov, [facility] [address] [id number] [place] [address] Nov, [facility] [address] [id number] [place] [address] Oct, [facility] [address] [id number] [place] [address] Oct, [facility] [address] [id number] [place] [address] Aug, [facility] [address] [id number] [place] [address] Aug, [facility] [address] [id number] [place] [address] Jul, [facility] [address] [id number] [place] [address] Jun, [facility] [address] [id number] [place] [address] Jun, [facility] [address] [id number] [place] [address] Jun, [facility] [address] [id number] [place] [address] Jun, [facility] [address] [id number] [place] [address] Jun, [facility] [address] [id number] [place] [address] Jun, [facility] [address] [id number] [place] [address] May, [facility] [address] [id number] [place] [address] March, [facility] [address] [id number] [place] [address] March, [facility] [address] [id number] [place] [address] Jan, IMMUNIZATIONS No Known Immunizations SOCIAL HISTORY Never Assessed REASON FOR VISIT PLAN OF CARE VITAL SIGNS Height 66 in 2014-02-12 Weight 187 lbs 2014-02-12 Temperature 97.9 degrees Fahrenheit 2014-02-12 Heart Rate 60 bpm 2014-02-12 Respiratory Rate 16 2014-02-12 Blood pressure systolic 102 mmHg 2014-02-12 Blood pressure diastolic 64 mmHg 2014-02-12 MEDICATIONS Unknown Medications RESULTS No Results PROCEDURES Procedure Date Ordered Result Body Site COMPLETE CBC W/AUTO DIFF WBC February 12, 2014 ASSAY THYROID STIM HORMONE February 12, 2014 ASSAY OF PSA, TOTAL February 12, 2014 ASSAY OF MAGNESIUM February 12, 2014 LIPID PANEL February 12, 2014 COMPREHEN METABOLIC PANEL February 12, 2014 ELECTROCARDIOGRAM, TRACING February 12, 2014 VENIPUNCT, ROUTINE* February 12, 2014 INSTRUCTIONS MEDICATIONS ADMINISTERED No Known Medications [...] cyst Hospitalization History surgery Hospitalization History [facility]- Right Leg Pain 09/21/2017 Hospitalization History [facility]- Severe Dehydr ation with Acute Renal Failure 05/06/2018 Hospitalization History Back surgery to remove cyst/ infecti on
--- OUTSIDE RECORDS SUMMARY | 2020-03-23 00:56 | XMS REPORT ---
Author Author Zoran OLIVER [facility] Organization [facility] Address [address] [place] [address] Care Team Providers Care Office Service Coordinator Name Role Phone ANTWON ETIENNEMARS Unavailable PROBLEMS Type Condition ICD9-CM Code NKZ23-JO Code Onset Dates Condition S tatus SNOMED Code Problem HTN (hypertension) I10 Active 3 6676411 Problem Type 2 diabetes mellitus with other specified complication E11.69 Active 4479729 Problem Atherosclerotic heart diseas e of [place] coronary artery without angina pectoris I25.10 Active 075085195 Problem Cervicalgia M54.2 Active 86174033 [id number] Problem Parkinsons disease G20 Active 4 3123736 Problem Hypercholesterolemia E78.0 Active 41882595 Problem 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 Active 693927017 Problem Panic F41.0 Active 78342094 Problem Cervical stenosis of spine M48.02 Act cynthia 90354244 Problem Carpal tunnel syndrome, right G56.01 Active [id number] Problem Other chronic pain G89.29 Active 8 5711864 Problem Lumbar spondylosis M47.816 Active 2 95007397 Problem Recurrent major depressive disorder, in full remission F33.42 Active 281220605 Problem Cannabis abuse F12.10 Active 81824 009 Problem Generalized anxiety disorder F41.1 A ctive [id number] ALLERGIES No Information ENCOUNTERS Encounter Location Date Diagnosis [facility] [address] [facility] [id number] [address] [place] [phone] Aug, [facility] [address] [facility] [id number] [address] [place] [phone] Aug, [facility] [address] [facility] [id number] [address] [place] [address] Jun, Carpal tunnel syndrome, righ t G56.[address] [address] May, Parkinsons disease G20 ; Hypercholestero lemia E78.0 and HTN (hypertension) I10 [facility] [address] [facility] [id number] [address] [place] [address] May, Tenosynovitis, de Quervain M 65.4 ; Type 2 diabetes mellitus with other specified complication E11.69 ; Lumbar spondylosis M47.816 and HTN (hypertension) I10 [facility] [address] [facility] [id number] [address] [place] [address] March, [facility] [address] [place] [address] Jan, [facility] [address] [facility] [id number] [address] [place] [address] Dec, Hypercholesterolemia E78.0 [facility] [address] [facility] [id number] [address] [place] [address] Nov, HTN (hypertension) I10 [facility] [address] [facility] [id number] [address] [place] [phone] Oct, Generalized anxiety disorder F41.1 and Panic F41.0 [place] [address] [facility] [id number] [address] [place] [address] Oct, Generalized anxiety disorder F41.1 and Panic F41.0 [place] [address] [facility] [id number] [address] [place] [address] Aug, Cervicalgia M54.2 [facility] [address] [facility] [id number] [address] [place] [address] Aug, Type 2 diabetes mellitus wit h other specified complication E11.69 ; HTN (hypertension) I10 ; Parkinsons disease G20 ; Atherosclerotic heart disease of [place] coronary artery without angina pectoris I25.10 ; Hypercholesterolemia E78.0 and Cervical stenosis of spine M48.02 [facility] [address] [facility] [id number] [address] [place] [address] Aug, Type 2 diabetes mellitus wit h other specified complication E11.69 [place] [address] [facility] [id number] [address] [place] [address] May, [place] [address] [facility] [id number] [address] [place] [address] Apr, [place] [address] [facility] [id number] [address] [place] [address] 22 Apr, 2018 Dehydration E86.0 ; Acute re nal failure, unspecified acute renal failure type N17.9 ; Cannabis abuse F12.10 ; Type 2 diabetes mellitus with other specified complication E11.69 ; HTN (hypertension) I10 ; Parkinsons disease G20 ; Hypercholesterolemia E78.0 ; Atherosclerotic heart disease of [place] coronary artery without angina pectoris I25.10 ; Cervicalgia M54.2 ; Need for hepatitis C screening test Z11.59 and Recurrent major depressive disorder, in full remission F33.[address] [address] 18 Apr, 2018 [place] [address] [place] [id number] [place] [address] 14 Apr, 2018 Dehydration E86.0 ; Hypotens ion, unspecified hypotension type I95.9 ; Fall, initial encounter W19.XXXA ; Acute head injury without loss of consciousness, initial encounter S09.90XA ; Type 2 diabetes mellitus with other specified complication E11.69 ; HTN (hypertension) I10 and Parkinsons disease G20 [place] [address] [place] [id number] [address] [place] [address] 14 Apr, 2018 [place] [address] [place] [id number] [address] [place] [address] 12 Apr, 2018 [place] [address] [place] [id number] [address] [place] [address] Feb, Cervicalgia M54.2 [place] [address] [place] [id number] [address] [place] [phone] 05 Feb, 2018 Cervical stenosis of spine M 48.02 [place] [address] [address] [place] [id number] [address] [place] [address] Jan, Cervicalgia M54.2 [facility] [address] [id number] [address] [place] [address] Jan, Acute right-sided low back p ain with right-sided sciatica M54.41 [facility] [address] [id number] [address] [place] [address] Dec, Cervicalgia M54.2 [facility] [address] [id number] [address] [place] [address] Dec, Controlled substance agreeme nt signed Z79.899 [facility] [address] [facility] [id number] [address] [place] [address] Oct, Cervicalgia M54.2 [facility] [address] [facility] [id number] [address] [place] [address] Oct, Acute right-sided low back p ain with right-sided sciatica M54.41 [facility] [address] [facility] [id number] [address] [place] [id number] 04 Oct, 2017 [facility] [address] [facility] [id number] [address] [place] [address] 28 Sep, 2017 Cervicalgia M54.2 [facility] [address] [facility] [id number] [address] [place] [address] 14 Sep, 2017 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 [facility] [address] [facility] [id number] [address] [place] [id number] 13 Sep, 2017 Lumbar back pain with radicu lopathy affecting right lower extremity M54.17 [facility] [address] [facility] [id number] [address] [place] [id number] 03 Sep, 2017 Acute right-sided low back p ain with right-sided sciatica M54.41 [facility] [address] [facility] [id number] [address] [place] [address] 30 Aug, 2017 Type 2 diabetes mellitus wit h other specified complication E11.69 ; HTN (hypertension) I10 ; Cervicalgia M54.2 ; Cervical stenosis of spine M48.02 ; Acute right hip pain M25.551 ; Atherosclerotic heart disease of [place] coronary artery without angina pectoris I25.10 ; Hypercholesterolemia E78.0 ; Parkinsons disease G20 and Depression F32.9 [facility] [address] [id number] [address] [place] [address] Aug, Other chronic pain G89.29 [facility] [address] [id number] [address] [place] [address] Jul, Other chronic pain G89.29 [facility] [address] [id number] [address] [place] [address] Jul, [facility] [address] [id number] [address] [place] [address] Jul, Cough R05 and Bronchitis J40 [facility] [address] [id number] [address] [place] [address] Jun, Other chronic pain G89.29 [facility] [address] [id number] [address] [place] [address] Jun, [facility] [address] [id number] [address] [place] [address] Jun, Atherosclerotic heart diseas e of [place] coronary artery without angina pectoris I25.10 and Cervicalgia M54.2 [facility] [address] [id number] [address] [place] [address] Jun, Cervicalgia M54.2 [facility] [address] [id number] [address] [place] [address] May, Other chronic pain G89.29 [facility] [address] [id number] [address] [place] [address] May, [facility] [address] [id number] [address] [place] [id number] May, [facility] [address] [facility] [id number] [address] [place] [id number] May, [facility] [address] [facility] [id number] [address] [place] [address] May, [facility] [address] [place] [id number] [address] [place] [address] May, Type 2 diabetes mellitus wit h other specified complication E11.69 ; HTN (hypertension) I10 ; Atherosclerotic heart disease of [place] coronary artery without angina pectoris I25.10 ; Parkinsons disease G20 and Cervical stenosis of spine M48.02 [facility] [address] [facility] [id number] [address] [place] [address] Apr, Cervicalgia M54.2 [place] [address] [place] [id number] [place] [address] Apr, Type 2 diabetes mellitus wit h other specified complication E11.69 ; HTN (hypertension) I10 ; Depression F32.9 ; Atherosclerotic heart disease of [place] coronary artery without angina pectoris I25.10 ; Coronary atherosclerosis due to lipid rich plaque I25.83 ; Cervicalgia M54.2 ; Parkinsons disease G20 ; Chronic diarrhea K52.9 and Pure hypercholesterolemia E78.00 [place] [address] [place] [id number] [place] [address] March, Other chronic pain G89.29 [place] [address] [place] [id number] [address] [place] [address] March, Other chronic pain G89.29 [place] [address] [place] [id number] [address] [place] [address] Feb, Cervical stenosis of spine M 48.02 [facility] [address] [facility] [id number] [address] [place] [address] Feb, Other chronic pain G89.29 [facility] [address] [place] [id number] [address] [place] [id number] Jan, [place] [address] [place] [id number] [address] [place] [address] Jan, Other chronic pain G89.29 [facility] [address] [facility] [id number] [address] [place] [address] Jan, Other chronic pain G89.29 [facility] [address] [place] [id number] [address] [place] [address] Jan, Type 2 diabetes mellitus wit h other specified complication E11.69 ; Atherosclerotic heart disease of [place] coronary artery without angina pectoris I25.10 ; Anxiety F41.9 ; HTN (hypertension) I10 ; Depression F32.9 ; Coronary atherosclerosis due to lipid rich plaque I25.83 ; Cervicalgia M54.2 ; Other chronic pain G89.29 and Functional 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 [facility] [address] [facility] [id number] [place] [address] Nov, HTN (hypertension) I10 [place] [address] [address] Nov, Type 2 diabetes mellitus wit h other specified complication E11.69 ; Atherosclerotic heart disease of [place] coronary artery without angina pectoris I25.10 ; Hypercholesterolemia E78.0 ; Anxiety F41.9 ; Depression F32.9 ; Cervicalgia M54.2 and Functional 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 [facility] [address] [place] [id number] [address] [place] [address] Oct, [facility] [address] [address] Oct, Neck pain M54.2 [facility] [address] [place] [id number] [address] [place] [id number] Sep, [facility] [address] [place] [id number] [address] [place] [phone] Aug, [place] [address] [address] Aug, [facility] [address] [place] [id number] [address] [place] [address] Jul, Visit for TB skin test Z11.1 and Screening for tuberculosis Z11.1 [facility] [address] [facility] [id number] [address] [place] [phone] May, [facility] [address] [facility] [id number] [address] [place] [address] May, Neck pain M54.2 [facility] [address] [facility] [id number] [address] [place] [address] May, [facility] [address] [facility] [id number] [address] [place] [address] Apr, Neck pain M54.2 [facility] [address] [facility] [id number] [address] [place] [address] Feb, Neck pain M54.2 [facility] [address] [facility] [id number] [address] [place] [address] Feb, [facility] [address] [facility] [id number] [address] [place] [address] Jan, Neck pain M54.2 [facility] [address] [facility] [id number] [address] [place] [address] Jan, [facility] [address] [facility] [id number] [address] [place] [address] Jan, Neck pain M54.2 [facility] [address] [facility] [id number] [address] [place] [address] Jan, Neck pain M54.2 ; Type 2 sarath betes mellitus with other specified complication E11.69 ; CAD (coronary artery disease) 414.00 ; Insomnia 780.52 ; Anxiety F41.9 ; Depression F32.9 ; Pre-ulcerative calluses L84 and Hypercholesterolemia E78.0 [facility] [address] [facility] [id number] [address] [place] [address] Nov, [facility] [address] [facility] [id number] [address] [place] [address] Nov, Type 2 diabetes mellitus wit h other specified complication E11.69 ; Pre-ulcerative calluses L84 ; HTN (hypertension) I10 ; Hypercholesterolemia E78.0 ; Anxiety F41.9 ; Depression F32.9 ; Environmental allergies Z91.09 and Osteoarthritis M19.90 [place] [address] [address] Sep, [place] [address] [address] Aug, Allergic rhinitis, seasonal J30.2 [facility] [address] [address] Jul, [facility] [address] [address] Jul, Other specified cardiac dysr hythmias 427.89 ; Essential hypertension, benign 401.1 ; Nondependent tobacco use disorder 305.1 ; Unspecified hereditary and idiopathic peripheral neuropathy 356.9 ; Diabetes mellitus without mention of complication, type II or unspecified type, not stated as uncontrolled 250.00 ; CAD (coronary artery disease) 414.00 ; Insomnia 780.52 and Depression 311 [facility] [address] [address] Jul, [place] [address] [address] Jul, [place] [address] [address] May, [facility] [address] [address] May, [facility] [address] [address] May, [facility] [address] [address] Apr, [facility] [address] [address] Apr, Skin lesion of face 709.9 an d Anxiety 300.00 [facility] [address] [id number] [address] [place] [address], [place] [address] March, [facility] [address] [id number] [address] [place] [address], [place] [address] Feb, [facility] [address] [id number] [address] [place] [address], [place] [address] Feb, [facility] [address] [id number] [address] [place] [address], [place] [address] Jan, [facility] [address] [id number] [address] [place] [address], [place] [address] Jan, [facility] [address] [id number] [address] [place] [address], [place] [address] Jan, [facility] [address] [id number] [address] [place] [address], [place] [address] Jan, [facility] [address] [id number] [address] [place] [address], [place] [address] Jan, [facility] [address] [id number] [address] [place] [address], [place] [address] Jan, [facility] [address] [id number] [address] [place] [address], [place] [address] Dec, [facility] [address] [id number] [address] [place] [address], [place] [address] Dec, [facility] [address] [id number] [address] [place] [address], [place] [address] Nov, [facility] [address] [id number] [address] [place] [address], [place] [address] Nov, [facility] [address] [id number] [address] [place] [address], [place] [address] Oct, [facility] [address] [id number] [address] [place] [address], [place] [address] Oct, [facility] [address] [id number] [address] [place] [address], [place] [address] Oct, [facility] [address] [id number] [address] [place] [address], [place] [address] Oct, [facility] [address] [id number] [address] [place] [address], [place] [address] Sep, [facility] [address] [id number] [address] [place] [address], [place] [address] Sep, [facility] [address] [id number] [address] [place] [address], [place] [address] Sep, [facility] [address] [id number] [address] [place] [address], [place] [address] Sep, [facility] [address] [id number] [address] [place] [address], [place] [address] Sep, [facility] [address] [id number] [address] [place] [address], [place] [address] Sep, [facility] [address] [id number] [address] [place] [address], [place] [address] Aug, [facility] [address] [id number] [address] [place] [address], [place] [address] Aug, [facility] [address] [id number] [address] [place] [address], [place] [address] Aug, [facility] [address] [id number] [address] [place] [address] Aug, [facility] [address] [id number] [address] [place] [address] Aug, [facility] [address] [id number] [address] [place] [address], [place] [address] Aug, [facility] [address] [id number] [address] [place] [address], [place] [address] Aug, [facility] [address] [id number] [address] [place] [address], [place] [address] Aug, [facility] [address] [id number] [address] [place] [address], [place] [address] Aug, [facility] [address] [id number] [address] [place] [address], [place] [address] Aug, [facility] [address] [id number] [address] [place] [address], [place] [address] Jul, [facility] [address] [id number] [address] [place] [address], [place] [address] Jul, [facility] [address] [id number] [address] [place] [address], [place] [address] May, [facility] [address] [id number] [address] [place] [address], [place] [address] May, [facility] [address] [id number] [address] [place] [address], [place] [id number] May, [facility] [address] [id number] [address] [place] [address], [place] [id number] May, [facility] [address] [id number] [address] [place] [address], [place] [id number] May, [facility] [address] [id number] [address] [place] [address], [place] [id number] May, [facility] [address] [id number] [address] [place] [address], [place] [address] Apr, [facility] [address] [id number] [address] [place] [address], [place] [id number] Apr, [facility] [address] [id number] [address] [place] [address], [place] [id number] Apr, [facility] [address] [id number] [address] [place] [address], [place] [id number] Apr, [facility] [address] [id number] [address] [place] [address], [place] [id number] March, [facility] [address] [id number] [address] [place] [address], [place] [id number] March, [facility] [address] [id number] [address] [place] [address], [place] [id number] Feb, [facility] [address] [id number] [address] [place] [address], [place] [id number] Feb, [facility] [address] [id number] [address] [place] [address], [place] [id number] Jan, [facility] [address] [id number] [address] [place] [address], [place] [id number] Jan, [facility] [address] [id number] [address] [place] [address], [place] [id number] Nov, [facility] [address] [id number] [address] [place] [address], [place] [id number] Nov, [facility] [address] [id number] [address] [place] [address], [place] [id number] Nov, [facility] [address] [id number] [address] [place] [address], [place] [id number] Nov, [facility] [address] [id number] [address] [place] [address], [place] [id number] Nov, [facility] [address] [address] [id number] [address] [place] [address], [place] [id number] Nov, [facility] [address] [id number] [address] [place] [address], [place] [id number] Oct, [facility] [address] [id number] [address] [place] [phone] Oct, [facility] [address] [id number] [address] [place] [address], [place] [id number] Aug, [facility] [address] [id number] [address] [place] [address], [place] [id number] Aug, [facility] [address] [id number] [address] [place] [address], [place] [id number] Jul, [facility] [address] [id number] [address] [place] [id number] Jun, [facility] [address] [id number] [address] [place] [id number] Jun, [facility] [address] [id number] [address] [place] [id number] Jun, [facility] [address] [id number] [address] [place] [id number] Jun, [facility] [address] [id number] [address] [place] [id number] Jun, [facility] [address] [id number] [address] [place] [id number] Jun, [facility] [address] [id number] [address] [place] [id number] May, [facility] [address] [id number] [address] [place] [id number] March, [facility] [address] [id number] [address] [place] [id number] March, [facility] [address] [id number] [address] [place] [id number] Jan, IMMUNIZATIONS No Known Immunizations SOCIAL HISTORY Never Assessed REASON FOR VISIT PLAN OF CARE VITAL SIGNS Height 66 in 2014-05-23 Weight 182.31 lbs 2014-05-23 Temperature 97 degrees Fahrenheit 2014-05-23 Heart Rate 52 bpm 2014-05-23 Respiratory Rate 22 2014-05-23 Blood pressure systolic 114 mmHg 2014-05-23 Blood pressure diastolic 70 mmHg 2014-05-23 MEDICATIONS Unknown Medications RESULTS No Results PROCEDURES Procedure Date Ordered Result Body Site MEASURE BLOOD OXYGEN LEVEL May 23, 2014 INSTRUCTIONS MEDICATIONS ADMINISTERED No Known Medications [...] appendectomy 1968 Surgical History carpal tunnel 2017 Surgical History Back surgery to remove cyst Hospitalization History surgery Hospitalization History [facility]- Right Leg Pain 09/21/2017 Hospitalization History [facility]- Severe Dehydr ation with Acute Renal Failure 05/06/2018 Hospitalization History Back surgery to remove cyst/ infecti on
--- OUTSIDE RECORDS SUMMARY | 2020-03-23 00:56 | XMS REPORT ---
Author Author Zoran OLIVER NA [facility] Organization [facility] Address [address] [place] [address] Care Team Providers Care Decoration Checker Name Role Phone ANTWON ETIENNEMARS Unavailable PROBLEMS Type Condition ICD9-CM Code BWR87-WE Code Onset Dates Condition S tatus SNOMED Code Problem HTN (hypertension) I10 Active 3 2993783 Problem Type 2 diabetes mellitus with other specified complication E11.69 Active 2820886 Problem Atherosclerotic heart diseas e of [place] coronary artery without angina pectoris I25.10 Active 052220677 Problem Cervicalgia M54.2 Active 67179639 5091237 Problem Parkinsons disease G20 Active 4 7532938 Problem Hypercholesterolemia E78.0 Active 73548002 Problem 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 Active 698290876 Problem Panic F41.0 Active 96491787 Problem Cervical stenosis of spine M48.02 Act cynthia 10103371 Problem Carpal tunnel syndrome, right G56.01 Active [id number] Problem Other chronic pain G89.29 Active 8 0053739 Problem Lumbar spondylosis M47.816 Active 2 00841029 Problem Recurrent major depressive disorder, in full remission F33.42 Active 053086068 Problem Cannabis abuse F12.10 Active 38846 009 Problem Generalized anxiety disorder F41.1 A ctive 51791609 ALLERGIES No Information ENCOUNTERS Encounter Location Date Diagnosis [facility] [address] [facility] [id number] [address] [place] [address] Aug, [facility] [address] [facility] [id number] [address] [place] [address] Aug, [facility] [address] [facility] [id number] [address] [place] [address] Jun, Carpal tunnel syndrome, righ t G56.[address] [address] May, Parkinsons disease G20 ; Hypercholestero lemia E78.0 and HTN (hypertension) I10 [facility] [address] [facility] [id number] [address] [place] [address] May, Tenosynovitis, de Quervain M 65.4 ; Type 2 diabetes mellitus with other specified complication E11.69 ; Lumbar spondylosis M47.816 and HTN (hypertension) I10 [facility] [address] [facility] [id number] [address] [place] [address] March, [facility] [address] [place] [address] Jan, [facility] [address] [facility] [id number] [address] [place] [address] Dec, Hypercholesterolemia E78.0 [facility] [address] [facility] [id number] [address] [place] [address] Nov, HTN (hypertension) I10 [facility] [address] [facility] [id number] [address] [place] [address] Oct, Generalized anxiety disorder F41.1 and Panic F41.0 [place] [address] [facility] [id number] [address] [place] [address] Oct, Generalized anxiety disorder F41.1 and Panic F41.0 [place] [address] [facility] [id number] [address] [place] [address] Aug, Cervicalgia M54.2 [facility] [address] [facility] [id number] [address] [place] [address] Aug, Type 2 diabetes mellitus wit h other specified complication E11.69 ; HTN (hypertension) I10 ; Parkinsons disease G20 ; Atherosclerotic heart disease of [place] coronary artery without angina pectoris I25.10 ; Hypercholesterolemia E78.0 and Cervical stenosis of spine M48.02 [facility] [address] [facility] [id number] [address] [place] [address] Aug, Type 2 diabetes mellitus wit h other specified complication E11.69 [place] [address] [facility] [id number] [address] [place] [address] May, [place] [address] [facility] [id number] [address] [place] [address] Apr, [place] [address] [facility] [id number] [address] [place] [address] 22 Apr, 2018 Dehydration E86.0 ; Acute re nal failure, unspecified acute renal failure type N17.9 ; Cannabis abuse F12.10 ; Type 2 diabetes mellitus with other specified complication E11.69 ; HTN (hypertension) I10 ; Parkinsons disease G20 ; Hypercholesterolemia E78.0 ; Atherosclerotic heart disease of [place] coronary artery without angina pectoris I25.10 ; Cervicalgia M54.2 ; Need for hepatitis C screening test Z11.59 and Recurrent major depressive disorder, in full remission F33.[address] [address] 18 Apr, 2018 [place] [address] [place] [id number] [place] [address] 14 Apr, 2018 Dehydration E86.0 ; Hypotens ion, unspecified hypotension type I95.9 ; Fall, initial encounter W19.XXXA ; Acute head injury without loss of consciousness, initial encounter S09.90XA ; Type 2 diabetes mellitus with other specified complication E11.69 ; HTN (hypertension) I10 and Parkinsons disease G20 [place] [address] [place] [id number] [address] [place] [address] 14 Apr, 2018 [place] [address] [place] [id number] [address] [place] [address] 12 Apr, 2018 [place] [address] [place] [id number] [address] [place] [address] Feb, Cervicalgia M54.2 [place] [address] [place] [id number] [address] [place] [address] 05 Feb, 2018 Cervical stenosis of spine M 48.02 [place] [address] [place] [id number] [address] [place] [address] Jan, Cervicalgia M54.2 [facility] [address] [id number] [address] [place] [address] Jan, Acute right-sided low back p ain with right-sided sciatica M54.41 [facility] [address] [id number] [address] [place] [address] Dec, Cervicalgia M54.2 [facility] [address] [id number] [address] [place] [address] Dec, Controlled substance agreeme nt signed Z79.899 [facility] [address] [facility] [id number] [address] [place] [address] Oct, Cervicalgia M54.2 [facility] [address] [facility] [id number] [address] [place] [address] Oct, Acute right-sided low back p ain with right-sided sciatica M54.41 [facility] [address] [facility] [id number] [address] [place] [address] 04 Oct, 2017 [facility] [address] [facility] [id number] [address] [place] [address] 28 Sep, 2017 Cervicalgia M54.2 [facility] [address] [facility] [id number] [address] [place] [address] 14 Sep, 2017 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 [facility] [address] [facility] [id number] [address] [place] [address] 13 Sep, 2017 Lumbar back pain with radicu lopathy affecting right lower extremity M54.17 [facility] [address] [facility] [id number] [address] [place] [address] 03 Sep, 2017 Acute right-sided low back p ain with right-sided sciatica M54.41 [facility] [address] [facility] [id number] [address] [place] [address] 30 Aug, 2017 Type 2 diabetes mellitus wit h other specified complication E11.69 ; HTN (hypertension) I10 ; Cervicalgia M54.2 ; Cervical stenosis of spine M48.02 ; Acute right hip pain M25.551 ; Atherosclerotic heart disease of [place] coronary artery without angina pectoris I25.10 ; Hypercholesterolemia E78.0 ; Parkinsons disease G20 and Depression F32.9 [facility] [address] [id number] [address] [place] [address] Aug, Other chronic pain G89.29 [facility] [address] [id number] [address] [place] [address] Jul, Other chronic pain G89.29 [facility] [address] [id number] [address] [place] [address] Jul, [facility] [address] [id number] [address] [place] [address] Jul, Cough R05 and Bronchitis J40 [facility] [address] [id number] [address] [place] [address] Jun, Other chronic pain G89.29 [facility] [address] [id number] [address] [place] [address] Jun, [facility] [address] [id number] [address] [place] [address] Jun, Atherosclerotic heart diseas e of [place] coronary artery without angina pectoris I25.10 and Cervicalgia M54.2 [facility] [address] [id number] [address] [place] [address] Jun, Cervicalgia M54.2 [facility] [address] [id number] [address] [place] [address] May, Other chronic pain G89.29 [facility] [address] [id number] [address] [place] [address] May, [facility] [address] [id number] [address] [place] [address] May, [facility] [address] [facility] [id number] [address] [place] [address] May, [facility] [address] [facility] [id number] [address] [place] [address] May, [facility] [address] [place] [id number] [address] [place] [address] May, Type 2 diabetes mellitus wit h other specified complication E11.69 ; HTN (hypertension) I10 ; Atherosclerotic heart disease of [place] coronary artery without angina pectoris I25.10 ; Parkinsons disease G20 and Cervical stenosis of spine M48.02 [facility] [address] [facility] [id number] [address] [place] [address] Apr, Cervicalgia M54.2 [place] [address] [place] [id number] [place] [address] Apr, Type 2 diabetes mellitus wit h other specified complication E11.69 ; HTN (hypertension) I10 ; Depression F32.9 ; Atherosclerotic heart disease of [place] coronary artery without angina pectoris I25.10 ; Coronary atherosclerosis due to lipid rich plaque I25.83 ; Cervicalgia M54.2 ; Parkinsons disease G20 ; Chronic diarrhea K52.9 and Pure hypercholesterolemia E78.00 [place] [address] [place] [id number] [place] [address] March, Other chronic pain G89.29 [place] [address] [place] [id number] [address] [place] [address] March, Other chronic pain G89.29 [place] [address] [place] [id number] [address] [place] [address] Feb, Cervical stenosis of spine M 48.02 [facility] [address] [facility] [id number] [address] [place] [address] Feb, Other chronic pain G89.29 [facility] [address] [place] [id number] [address] [place] [address] Jan, [place] [address] [place] [id number] [address] [place] [address] Jan, Other chronic pain G89.29 [facility] [address] [facility] [id number] [address] [place] [address] Jan, Other chronic pain G89.29 [facility] [address] [place] [id number] [address] [place] [address] Jan, Type 2 diabetes mellitus wit h other specified complication E11.69 ; Atherosclerotic heart disease of [place] coronary artery without angina pectoris I25.10 ; Anxiety F41.9 ; HTN (hypertension) I10 ; Depression F32.9 ; Coronary atherosclerosis due to lipid rich plaque I25.83 ; Cervicalgia M54.2 ; Other chronic pain G89.29 and Functional 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 [facility] [address] [facility] [id number] [place] [address] Nov, HTN (hypertension) I10 [place] [address] [address] Nov, Type 2 diabetes mellitus wit h other specified complication E11.69 ; Atherosclerotic heart disease of [place] coronary artery without angina pectoris I25.10 ; Hypercholesterolemia E78.0 ; Anxiety F41.9 ; Depression F32.9 ; Cervicalgia M54.2 and Functional 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 [facility] [address] [place] [id number] [address] [place] [address] Oct, [facility] [address] [address] Oct, Neck pain M54.2 [facility] [address] [place] [id number] [address] [place] [address] Sep, [facility] [address] [place] [id number] [address] [place] [address] Aug, [place] [address] [address] Aug, [facility] [address] [place] [id number] [address] [place] [address] Jul, Visit for TB skin test Z11.1 and Screening for tuberculosis Z11.1 [facility] [address] [facility] [id number] [address] [place] [address] May, [facility] [address] [facility] [id number] [address] [place] [address] May, Neck pain M54.2 [facility] [address] [facility] [id number] [address] [place] [address] May, [facility] [address] [facility] [id number] [address] [place] [address] Apr, Neck pain M54.2 [facility] [address] [facility] [id number] [address] [place] [address] Feb, Neck pain M54.2 [facility] [address] [facility] [id number] [address] [place] [address] Feb, [facility] [address] [facility] [id number] [address] [place] [address] Jan, Neck pain M54.2 [facility] [address] [facility] [id number] [address] [place] [address] Jan, [facility] [address] [facility] [id number] [address] [place] [address] Jan, Neck pain M54.2 [facility] [address] [facility] [id number] [address] [place] [address] Jan, Neck pain M54.2 ; Type 2 sarath betes mellitus with other specified complication E11.69 ; CAD (coronary artery disease) 414.00 ; Insomnia 780.52 ; Anxiety F41.9 ; Depression F32.9 ; Pre-ulcerative calluses L84 and Hypercholesterolemia E78.0 [facility] [address] [facility] [id number] [address] [place] [address] Nov, [facility] [address] [facility] [id number] [address] [place] [address] Nov, Type 2 diabetes mellitus wit h other specified complication E11.69 ; Pre-ulcerative calluses L84 ; HTN (hypertension) I10 ; Hypercholesterolemia E78.0 ; Anxiety F41.9 ; Depression F32.9 ; Environmental allergies Z91.09 and Osteoarthritis M19.90 [place] [address] [address] Sep, [place] [address] [address] Aug, Allergic rhinitis, seasonal J30.2 [facility] [address] [address] Jul, [facility] [address] [address] Jul, Other specified cardiac dysr hythmias 427.89 ; Essential hypertension, benign 401.1 ; Nondependent tobacco use disorder 305.1 ; Unspecified hereditary and idiopathic peripheral neuropathy 356.9 ; Diabetes mellitus without mention of complication, type II or unspecified type, not stated as uncontrolled 250.00 ; CAD (coronary artery disease) 414.00 ; Insomnia 780.52 and Depression 311 [facility] [address] [address] Jul, [place] [address] [address] Jul, [place] [address] [address] May, [facility] [address] [address] May, [facility] [address] [address] May, [facility] [address] [address] Apr, [facility] [address] [address] Apr, Skin lesion of face 709.9 an d Anxiety 300.00 [facility] [address] [id number] [address] [place] [address], [place] [address] March, [facility] [address] [id number] [address] [place] [address], [place] [address] Feb, [facility] [address] [id number] [address] [place] [address], [place] [address] Feb, [facility] [address] [id number] [address] [place] [address], [place] [address] Jan, [facility] [address] [id number] [address] [place] [address], [place] [address] Jan, [facility] [address] [id number] [address] [place] [address], [place] [address] Jan, [facility] [address] [id number] [address] [place] [address], [place] [address] Jan, [facility] [address] [id number] [address] [place] [address], [place] [address] Jan, [facility] [address] [id number] [address] [place] [address], [place] [address] Jan, [facility] [address] [id number] [address] [place] [address], [place] [address] Dec, [facility] [address] [id number] [address] [place] [address], [place] [address] Dec, [facility] [address] [id number] [address] [place] [address], [place] [address] Nov, [facility] [address] [id number] [address] [place] [address], [place] [address] Nov, [facility] [address] [id number] [address] [place] [address], [place] [address] Oct, [facility] [address] [id number] [address] [place] [address], [place] [address] Oct, [facility] [address] [id number] [address] [place] [address], [place] [address] Oct, [facility] [address] [id number] [address] [place] [address], [place] [address] Oct, [facility] [address] [id number] [address] [place] [address], [place] [address] Sep, [facility] [address] [id number] [address] [place] [address], [place] [address] Sep, [facility] [address] [id number] [address] [place] [address], [place] [address] Sep, [facility] [address] [id number] [address] [place] [address], [place] [address] Sep, [facility] [address] [id number] [address] [place] [address], [place] [address] Sep, [facility] [address] [id number] [address] [place] [address], [place] [address] Sep, [facility] [address] [id number] [address] [place] [address], [place] [address] Aug, [facility] [address] [id number] [address] [place] [address], [place] [address] Aug, [facility] [address] [id number] [address] [place] [address], [place] [address] Aug, [facility] [address] [id number] [address] [place] [address] Aug, [facility] [address] [id number] [address] [place] [address] Aug, [facility] [address] [id number] [address] [place] [address], [place] [address] Aug, [facility] [address] [id number] [address] [place] [address], [place] [address] Aug, [facility] [address] [id number] [address] [place] [address], [place] [address] Aug, [facility] [address] [id number] [address] [place] [address], [place] [address] Aug, [facility] [address] [id number] [address] [place] [address], [place] [address] Aug, [facility] [address] [id number] [address] [place] [address], [place] [address] Jul, [facility] [address] [id number] [address] [place] [address], [place] [address] Jul, [facility] [address] [id number] [address] [place] [address], [place] [address] May, [facility] [address] [id number] [address] [place] [address], [place] [address] May, [facility] [address] [id number] [address] [place] [address], [place] [address] May, [facility] [address] [id number] [address] [place] [address], [place] [address] May, [facility] [address] [id number] [address] [place] [address], [place] [address] May, [facility] [address] [id number] [address] [place] [address], [place] [address] May, [facility] [address] [id number] [address] [place] [address], [place] [address] Apr, [facility] [address] [id number] [address] [place] [address], [place] [address] Apr, [facility] [address] [id number] [address] [place] [address], [place] [address] Apr, [facility] [address] [id number] [address] [place] [address], [place] [address] Apr, [facility] [address] [id number] [address] [place] [address], [place] [address] March, [facility] [address] [id number] [address] [place] [address], [place] [address] March, [facility] [address] [id number] [address] [place] [address], [place] [address] Feb, [facility] [address] [id number] [address] [place] [address], [place] [address] Feb, [facility] [address] [id number] [address] [place] [address], [place] [address] Jan, [facility] [address] [id number] [address] [place] [address], [place] [address] Jan, [facility] [address] [id number] [address] [place] [address], [place] [address] Nov, [facility] [address] [id number] [address] [place] [address], [place] [address] Nov, [facility] [address] [id number] [address] [place] [address], [place] [address] Nov, [facility] [address] [id number] [address] [place] [address], [place] [address] Nov, [facility] [address] [id number] [address] [place] [address], [place] [address] Nov, [facility] [address] [id number] [address] [place] [address], [place] [address] Nov, [facility] [address] [id number] [address] [place] [address], [place] [address] Oct, [facility] [address] [id number] [address] [place] [id number] Oct, [facility] [address] [id number] [address] [place] [address], [place] [address] Aug, [facility] [address] [id number] [address] [place] [address], [place] [address] Aug, [facility] [address] [id number] [address] [place] [address], [place] [address] Jul, [facility] [address] [id number] [address] [place] [phone] Jun, [facility] [address] [id number] [address] [place] [phone] Jun, [facility] [address] [id number] [address] [place] [phone] Jun, [facility] [address] [id number] [address] [place] [phone] Jun, [facility] [address] [id number] [address] [place] [id number] Jun, [facility] [address] [id number] [address] [place] [phone] Jun, [facility] [address] [id number] [address] [place] [phone] May, [facility] [address] [id number] [address] [place] [phone] March, [facility] [address] [id number] [address] [place] [phone] March, [facility] [facility] [address] [id number] [address] [place] [id number] Jan, IMMUNIZATIONS No Known Immunizations SOCIAL HISTORY [...] cyst Hospitalization History surgery Hospitalization History [facility]- Right Leg Pain 09/21/2017 Hospitalization History [facility]- Severe Dehydr ation with Acute Renal Failure 05/06/2018 Hospitalization History Back surgery to remove cyst/ infecti on
--- OUTSIDE RECORDS SUMMARY | 2020-03-23 00:56 | XMS REPORT ---
Author Author Zoran Ahuja Doctor Organization [facility] Address Unknown Phone Unavailable Care Team Providers Care Tape Recorder Repairer Name Role Phone Migration, Doctor Unavailable Unavailable PROBLEMS Type Condition ICD9-CM Code UQA76-GS Code Onset Dates Condition S tatus SNOMED Code Problem HTN (hypertension) I10 Active 3 1068837 Problem Type 2 diabetes mellitus with other specified complication E11.69 Active 5311267 Problem Atherosclerotic heart diseas e of [place] coronary artery without angina pectoris I25.10 Active 451562714 Problem Cervicalgia M54.2 Active 18395884 7328621 Problem Parkinsons disease G20 Active 4 0653583 Problem Hypercholesterolemia E78.0 Active 58841982 Problem 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 Active 750993014 Problem Panic F41.0 Active 07748745 Problem Cervical stenosis of spine M48.02 Act cynthia 89450134 Problem Carpal tunnel syndrome, right G56.01 Active [id number] Problem Other chronic pain G89.29 Active 8 0958814 Problem Lumbar spondylosis M47.816 Active 2 72975143 Problem Recurrent major depressive disorder, in full remission F33.42 Active 549870481 Problem Cannabis abuse F12.10 Active 64174 009 Problem Generalized anxiety disorder F41.1 A ctive 89500035 ALLERGIES No Information ENCOUNTERS Encounter Location Date Diagnosis [facility] [address] [facility] [id number] [address] [place] [address] Jun, Carpal tunnel syndrome, righ t G56.[address] [address] May, Parkinsons disease G20 ; Hypercholestero lemia E78.0 and HTN (hypertension) I10 [facility] [address] [facility] [id number] [address] [place] [address] May, Tenosynovitis, de Quervain M 65.4 ; Type 2 diabetes mellitus with other specified complication E11.69 ; Lumbar spondylosis M47.816 and HTN (hypertension) I10 [facility] [address] [facility] [id number] [address] [place] [address] March, [facility] [address] [address] Jan, [facility] [address] [facility] [id number] [address] [place] [address] Dec, Hypercholesterolemia E78.0 [facility] [address] [facility] [id number] [address] [place] [address] Nov, HTN (hypertension) I10 [facility] [address] [facility] [id number] [address] [place] [address] Oct, Generalized anxiety disorder F41.1 and Panic F41.0 [facility] [address] [facility] [id number] [address] [place] [address] Oct, Generalized anxiety disorder F41.1 and Panic F41.0 [facility] [address] [facility] [id number] [address] [place] [address] Aug, Cervicalgia M54.2 [facility] [address] [place] [id number] [place] [address] Aug, Type 2 diabetes mellitus wit h other specified complication E11.69 ; HTN (hypertension) I10 ; Parkinsons disease G20 ; Atherosclerotic heart disease of [place] coronary artery without angina pectoris I25.10 ; Hypercholesterolemia E78.0 and Cervical stenosis of spine M48.02 [facility] [address] [facility] [id number] [address] [place] [address] Aug, Type 2 diabetes mellitus wit h other specified complication E11.69 [facility] [address] [facility] [id number] [address] [place] [address] May, [facility] [address] [place] [id number] [address] [place] [address] Apr, [facility] [address] [facility] [id number] [address] [place] [address] Apr, Dehydration E86.0 ; Acute re nal failure, unspecified acute renal failure type N17.9 ; Cannabis abuse F12.10 ; Type 2 diabetes mellitus with other specified complication E11.69 ; HTN (hypertension) I10 ; Parkinsons disease G20 ; Hypercholesterolemia E78.0 ; Atherosclerotic heart disease of [place] coronary artery without angina pectoris I25.10 ; Cervicalgia M54.2 ; Need for hepatitis C screening test Z11.59 and Recurrent major depressive disorder, in full remission F33.42 [place] [address] [place] [id number] [place] [address] 18 Apr, 2018 [place] [address] [place] [id number] [place] [address] 14 Apr, 2018 Dehydration E86.0 ; Hypotens ion, unspecified hypotension type I95.9 ; Fall, initial encounter W19.XXXA ; Acute head injury without loss of consciousness, initial encounter S09.90XA ; Type 2 diabetes mellitus with other specified complication E11.69 ; HTN (hypertension) I10 and Parkinsons disease G20 [place] [address] [address] 14 Apr, 2018 [place] [address] [place] [id number] [address] [place] [address] 12 Apr, 2018 [place] [address] [place] [id number] [place] [address] Feb, Cervicalgia M54.2 [place] [address] [place] [id number] [address] [place] [address] Feb, Cervical stenosis of spine M 48.02 [place] [address] [place] [id number] [address] [place] [address] Jan, Cervicalgia M54.2 [place] [address] [place] [id number] [address] [place] [address] Jan, Acute right-sided low back p ain with right-sided sciatica M54.41 [place] [address] [place] [id number] [address] [place] [address] Dec, Cervicalgia M54.2 [facility] [address] [facility] [id number] [address] [place] [address] Dec, Controlled substance agreeme nt signed Z79.899 [facility] [address] [id number] [address] [place] [address] Oct, Cervicalgia M54.2 [place] [address] [facility] [id number] [address] [place] [address] Oct, Acute right-sided low back p ain with right-sided sciatica M54.41 [place] [address] [facility] [id number] [address] [place] [address] Oct, [place] [address] [facility] [id number] [address] [place] [address] Sep, Cervicalgia M54.2 [place] [address] 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 [id number] [address] [place] [address] 13 Sep, 2017 Lumbar back pain with radicu lopathy affecting right lower extremity M54.17 [place] [address] [facility] [id number] [address] [place] [address] 03 Sep, 2017 Acute right-sided low back p ain with right-sided sciatica M54.41 [place] [address] [facility] [id number] [address] [place] [address] 30 Aug, 2017 Type 2 diabetes mellitus wit h other specified complication E11.69 ; HTN (hypertension) I10 ; Cervicalgia M54.2 ; Cervical stenosis of spine M48.02 ; Acute right hip pain M25.551 ; Atherosclerotic heart disease of [place] coronary artery without angina pectoris I25.10 ; Hypercholesterolemia E78.0 ; Parkinsons disease G20 and Depression F32.9 [place] [address] [facility] [id number] [address] [place] [address] Aug, Other chronic pain G89.29 [facility] [address] [id number] [address] [place] [address] 27 Jul, 2017 Other chronic pain G89.29 [facility] [address] [id number] [address] [place] [address] 21 Jul, 2017 [facility] [address] [id number] [address] [place] [address] 19 Jul, 2017 Cough R05 and Bronchitis J40 [facility] [address] [id number] [address] [place] [address] 30 Jun, 2017 Other chronic pain G89.29 [facility] [address] [id number] [address] [place] [address] Jun, [facility] [address] [id number] [address] [place] [address] Jun, Atherosclerotic heart diseas e of [place] coronary artery without angina pectoris I25.10 and Cervicalgia M54.2 [facility] [address] [id number] [address] [place] [address] Jun, Cervicalgia M54.2 [facility] [address] [id number] [address] [place] [address] May, Other chronic pain G89.29 [facility] [address] [id number] [address] [place] [address] May, [facility] [address] [id number] [address] [place] [address] May, [facility] [address] [id number] [address] [place] [address] May, [facility] [address] [id number] [address] [place] [address] May, [facility] [address] [facility] [id number] [address] [place] [address] May, Type 2 diabetes mellitus wit h other specified complication E11.69 ; HTN (hypertension) I10 ; Atherosclerotic heart disease of [place] coronary artery without angina pectoris I25.10 ; Parkinsons disease G20 and Cervical stenosis of spine M48.02 [facility] [address] [id number] [address] [place] [address] Apr, Cervicalgia M54.2 [facility] [address] [id number] [address] [place] [address] Apr, Type 2 diabetes mellitus wit h other specified complication E11.69 ; HTN (hypertension) I10 ; Depression F32.9 ; Atherosclerotic heart disease of [place] coronary artery without angina pectoris I25.10 ; Coronary atherosclerosis due to lipid rich plaque I25.83 ; Cervicalgia M54.2 ; Parkinsons disease G20 ; Chronic diarrhea K52.9 and Pure hypercholesterolemia E78.00 [place] [address] [id number] [address] [place] [address] March, Other chronic pain G89.29 [place] [address] [id number] [address] [place] [address] March, Other chronic pain G89.29 [place] [address] [id number] [address] [place] [address] Feb, Cervical stenosis of spine M 48.02 [facility] [address] [id number] [address] [place] [address] Feb, Other chronic pain G89.29 [place] [address] [id number] [address] [place] [address] Jan, [place] [address] [id number] [address] [place] [address] Jan, Other chronic pain G89.29 [place] [address] [id number] [address] [place] [address] Jan, Other chronic pain G89.29 [place] [address] [id number] [address] [place] [address] Jan, Type 2 diabetes mellitus wit h other specified complication E11.69 ; Atherosclerotic heart disease of [place] coronary artery without angina pectoris I25.10 ; Anxiety F41.9 ; HTN (hypertension) I10 ; Depression F32.9 ; Coronary atherosclerosis due to lipid rich plaque I25.83 ; Cervicalgia M54.2 ; Other chronic pain G89.29 and Functional 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 [facility] [address] [facility] [id number] [address] [place] [address] 10 Nov, 2016 HTN (hypertension) I10 [facility] [address] [facility] [id number] [address] [place] [address] 03 Nov, 2016 Type 2 diabetes mellitus wit h other specified complication E11.69 ; Atherosclerotic heart disease of [place] coronary artery without angina pectoris I25.10 ; Hypercholesterolemia E78.0 ; Anxiety F41.9 ; Depression F32.9 ; Cervicalgia M54.2 and Functional 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 [facility] [address] [place] [id number] [place] [address] Oct, [place] [address] [facility] [id number] [address] [place] [address] Oct, Neck pain M54.2 [facility] [address] [place] [id number] [place] [address] Sep, [facility] [address] [place] [id number] [place] [address] Aug, [facility] [address] [facility] [id number] [address] [place] [address] Aug, [facility] [address] [facility] [id number] [address] [place] [address] Jul, Visit for TB skin test Z11.1 and Screening for tuberculosis Z11.1 [facility] [address] [facility] [id number] [address] [place] [address] May, [facility] [address] [facility] [id number] [address] [place] [address] May, Neck pain M54.2 [facility] [address] [facility] [id number] [address] [place] [address] May, [facility] [address] [address] Apr, Neck pain M54.2 [facility] [address] [address] Feb, Neck pain M54.2 [facility] [address] [address] Feb, [facility] [address] [address] Jan, Neck pain M54.2 [facility] [address] [address] Jan, [facility] [address] [address] Jan, Neck pain M54.2 [facility] [address] [address] Jan, Neck pain M54.2 ; Type 2 sarath betes mellitus with other specified complication E11.69 ; CAD (coronary artery disease) 414.00 ; Insomnia 780.52 ; Anxiety F41.9 ; Depression F32.9 ; Pre-ulcerative calluses L84 and Hypercholesterolemia E78.0 [place] [address] [address] Nov, [facility] [address] [address] Nov, Type 2 diabetes mellitus wit h other specified complication E11.69 ; Pre-ulcerative calluses L84 ; HTN (hypertension) I10 ; Hypercholesterolemia E78.0 ; Anxiety F41.9 ; Depression F32.9 ; Environmental allergies Z91.09 and Osteoarthritis M19.90 [facility] [address] [address] Sep, [facility] [address] [address] Aug, Allergic rhinitis, seasonal J30.2 [facility] [address] [place] [id number] [place] [address] Jul, [facility] [address] [place] [id number] [place] [address] Jul, Other specified cardiac dysr hythmias 427.89 ; Essential hypertension, benign 401.1 ; Nondependent tobacco use disorder 305.1 ; Unspecified hereditary and idiopathic peripheral neuropathy 356.9 ; Diabetes mellitus without mention of complication, type II or unspecified type, not stated as uncontrolled 250.00 ; CAD (coronary artery disease) 414.00 ; Insomnia 780.52 and Depression 311 [facility] [address] [address] Jul, [facility] [address] [place] [id number] [place] [address] Jul, [facility] [address] [address] May, [facility] [address] [place] [id number] [address] [place] [address] May, [facility] [address] [address] May, [facility] [address] [place] [id number] [address] [place] [address] Apr, [facility] [address] [address] Apr, Skin lesion of face 709.9 an d Anxiety 300.00 [facility] [address] [place] [id number] [place] [address] March, [facility] [address] [address] Feb, [facility] [address] [place] [id number] [place] [address] Feb, [facility] [address] [id number] [address] [place] [address], [place] [address] Jan, [facility] [address] [id number] [address] [place] [address], [place] [address] Jan, [facility] [address] [id number] [address] [place] [address], [place] [address] Jan, [facility] [address] [id number] [address] [place] [address], [place] [address] Jan, [facility] [address] [id number] [address] [place] [address], [place] [address] Jan, [facility] [address] [id number] [address] [place] [address], [place] [address] Jan, [facility] [address] [id number] [address] [place] [address], [place] [address] Dec, [facility] [address] [id number] [address] [place] [address], [place] [address] Dec, [facility] [address] [id number] [address] [place] [address], [place] [address] Nov, [facility] [address] [id number] [address] [place] [address], [place] [address] Nov, [facility] [address] [id number] [address] [place] [address], [place] [address] Oct, [facility] [address] [id number] [address] [place] [address], [place] [address] Oct, [facility] [address] [id number] [address] [place] [address], [place] [address] Oct, [facility] [address] [id number] [address] [place] [address], [place] [address] Oct, [facility] [address] [id number] [address] [place] [address], [place] [address] Sep, [facility] [address] [id number] [address] [place] [address], [place] [address] Sep, [facility] [address] [id number] [address] [place] [address], [place] [address] Sep, [facility] [address] [id number] [address] [place] [address], [place] [address] Sep, [facility] [address] [id number] [address] [place] [address], [place] [address] Sep, [facility] [address] [id number] [address] [place] [address], [place] [address] Sep, [facility] [address] [id number] [address] [place] [address], [place] [address] Aug, [facility] [address] [id number] [address] [place] [address], [place] [address] Aug, [facility] [address] [id number] [address] [place] [address], [place] [address] Aug, [facility] [address] [id number] [address] [place] [address], [place] [address] Aug, [facility] [address] [id number] [address] [place] [address], [place] [address] Aug, [facility] [address] [id number] [address] [place] [address] Aug, [facility] [address] [id number] [address] [place] [address] Aug, [facility] [address] [id number] [address] [place] [address] Aug, [facility] [address] [id number] [address] [place] [address], [place] [address] Aug, [facility] [address] [id number] [address] [place] [address], [place] [address] Aug, [facility] [address] [id number] [address] [place] [address] 05 Jul, 2014 [facility] [address] [id number] [address] [place] [address] Jul, [facility] [address] [id number] [address] [place] [address], [place] [address] May, [facility] [address] [id number] [address] [place] [address], [place] [address] May, [facility] [address] [id number] [address] [place] [address], [place] [address] May, [facility] [address] [id number] [address] [place] [address], [place] [address] May, [facility] [address] [id number] [address] [place] [address], [place] [address] May, [facility] [address] [id number] [address] [place] [address], [place] [address] May, [facility] [address] [id number] [address] [place] [address], [place] [address] Apr, [facility] [address] [id number] [address] [place] [address], [place] [address] Apr, [facility] [address] [id number] [address] [place] [address], [place] [address] Apr, [facility] [address] [id number] [address] [place] [address], [place] [address] Apr, [facility] [address] [id number] [address] [place] [address], [place] [address] March, [facility] [address] [id number] [address] [place] [address], [place] [address] March, [facility] [address] [id number] [address] [place] [address], [place] [address] Feb, [facility] [address] [id number] [address] [place] [address], [place] [address] Feb, [facility] [address] [id number] [address] [place] [address], [place] [address] Jan, [facility] [address] [id number] [address] [place] [address], [place] [address] Jan, [facility] [address] [id number] [address] [place] [address], [place] [address] Nov, [facility] [address] [id number] [address] [place] [address], [place] [address] Nov, [facility] [address] [id number] [address] [place] [address], [place] [address] Nov, [facility] [address] [id number] [address] [place] [address], [place] [address] Nov, [facility] [address] [id number] [address] [place] [address], [place] [address] Nov, [facility] [address] [id number] [address] [place] [address], [place] [address] Nov, [facility] [address] [id number] [address] [place] [address], [place] [address] Oct, [facility] [address] [id number] [address] [place] [address], [place] [address] Oct, [facility] [address] [id number] [address] [place] [address], [place] [address] Aug, [facility] [address] [id number] [address] [place] [address], [place] [address] Aug, [facility] [address] [id number] [address] [place] [address], [place] [address] Jul, [facility] [address] [id number] [address] [place] [address], [place] [address] Jun, [facility] [address] [id number] [address] [place] [address], [place] [address] Jun[facility] [address] [id number] [address] [place] [address], [place] [address] Jun, [facility] [address] [id number] [address] [place] [address] [address] Jun, [facility] [facility] [address] [facility] [id number] [address] [place] [phone] Jun, [facility] [address] [facility] [id number] [address] [place] [phone] Jun, [facility] [address] [facility] [id number] [address] [place] [phone] May, [facility] [address] [facility] [id number] [address] [place] [phone] March, [facility] [address] [facility] [id number] [address] [place] [phone] March, [facility] [address] [facility] [id number] [address] [place] [phone] Jan, IMMUNIZATIONS No Known Immunizations SOCIAL HISTORY [...] History Via [facility]- Right Leg Pain 09/21/[address] [facility]- Severe Dehydr ation with Acute Renal Failure 05/06/2018 Hospitalization History Back surgery to remove cyst/ infecti on
--- OUTSIDE RECORDS SUMMARY | 2020-03-23 00:56 | XMS REPORT ---
Author Author Zoran OLIVER NA [facility] Organization [facility] Address [address] [place] [address] Care Team Providers Care Ux Engineer Name Role Phone ANTWON ETIENNEMARS Unavailable PROBLEMS Type Condition ICD9-CM Code NLS30-ZM Code Onset Dates Condition S tatus SNOMED Code Problem HTN (hypertension) I10 Active 3 0397160 Problem Type 2 diabetes mellitus with other specified complication E11.69 Active 0037460 Problem Atherosclerotic heart diseas e of [place] coronary artery without angina pectoris I25.10 Active 006426440 Problem Cervicalgia M54.2 Active 52915706 6329231 Problem Parkinsons disease G20 Active 4 3007813 Problem Hypercholesterolemia E78.0 Active 51053732 Problem 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 Active 193344332 Problem Panic F41.0 Active 46882987 Problem Cervical stenosis of spine M48.02 Act cynthia 84208089 Problem Carpal tunnel syndrome, right G56.01 Active 616039239641984 Problem Other chronic pain G89.29 Active 8 6185645 Problem Lumbar spondylosis M47.816 Active 2 57318049 Problem Recurrent major depressive disorder, in full remission F33.42 Active 202944764 Problem Cannabis abuse F12.10 Active 73821 009 Problem Generalized anxiety disorder F41.1 A ctive [id number] ALLERGIES No Information ENCOUNTERS Encounter Location Date Diagnosis [facility] [address] [facility] [id number] [address] [place] [address] Aug, [facility] [address] [facility] [id number] [address] [place] [address] Jun, Carpal tunnel syndrome, righ t G56.[address] [address] May, Parkinsons disease G20 ; Hypercholestero lemia E78.0 and HTN (hypertension) I10 [place] [address] [place] [id number] [address] [place] [address] May, TenosynovitisHollis M 65.4 ; Type 2 diabetes mellitus with other specified complication E11.69 ; Lumbar spondylosis M47.816 and HTN (hypertension) I10 [facility] [address] [place] [id number] [address] [place] [address] March, [address] [address] Jan, [place] [address] [place] [id number] [address] [place] [address] Dec, Hypercholesterolemia E78.0 [place] [address] [place] [id number] [address] [place] [address] Nov, HTN (hypertension) I10 [place] [address] [place] [id number] [address] [place] [address] Oct, Generalized anxiety disorder F41.1 and Panic F41.0 [place] [address] [place] [id number] [address] [place] [address] Oct, Generalized anxiety disorder F41.1 and Panic F41.0 [place] [address] [place] [id number] [address] [place] [address] Aug, Cervicalgia M54.2 [place] [address] [place] [id number] [address] [place] [address] Aug, Type 2 diabetes mellitus wit h other specified complication E11.69 ; HTN (hypertension) I10 ; Parkinsons disease G20 ; Atherosclerotic heart disease of [place] coronary artery without angina pectoris I25.10 ; Hypercholesterolemia E78.0 and Cervical stenosis of spine M48.02 [place] [address] [place] [id number] [address] [place] [address] Aug, Type 2 diabetes mellitus wit h other specified complication E11.69 [place] [address] [place] [id number] [address] [place] [address] May, [facility] [address] [facility] [id number] [address] [place] [address] Apr, [facility] [address] [place] [id number] [place] [address] 22 Apr, 2018 Dehydration E86.0 ; Acute re nal failure, unspecified acute renal failure type N17.9 ; Cannabis abuse F12.10 ; Type 2 diabetes mellitus with other specified complication E11.69 ; HTN (hypertension) I10 ; Parkinsons disease G20 ; Hypercholesterolemia E78.0 ; Atherosclerotic heart disease of [place] coronary artery without angina pectoris I25.10 ; Cervicalgia M54.2 ; Need for hepatitis C screening test Z11.59 and Recurrent major depressive disorder, in full remission F33.42 [place] [address] [place] [id number] [address] [place] [address] 18 Apr, 2018 [place] [address] [address] 14 Apr, 2018 Dehydration E86.0 ; Hypotens ion, unspecified hypotension type I95.9 ; Fall, initial encounter W19.XXXA ; Acute head injury without loss of consciousness, initial encounter S09.90XA ; Type 2 diabetes mellitus with other specified complication E11.69 ; HTN (hypertension) I10 and Parkinsons disease G20 [place] [address] [place] [id number] [address] [place] [address] 14 Apr, 2018 [place] [address] [place] [id number] [address] [place] [address] Apr, [place] [address] [place] [id number] [address] [place] [address] Feb, Cervicalgia M54.2 [place] [address] [place] [id number] [address] [place] [address] 05 Feb, 2018 Cervical stenosis of spine M 48.02 [place] [address] [place] [id number] [address] [place] [address] Jan, Cervicalgia M54.2 [place] [address] [place] [id number] [place] [address], [place] [address] Jan, Acute right-sided low back p ain with right-sided sciatica M54.41 [place] [address] [place] [id number] [address] [place] [address] Dec, Cervicalgia M54.2 [place] [id number] [place] [address] Dec, Controlled substance agreeme nt signed Z79.899 [place] [address] [address] Oct, Cervicalgia M54.2 [place] [address] [address] Oct, Acute right-sided low back p ain with right-sided sciatica M54.41 [place] [address] [address] Oct, [place] [address] [address] Sep, Cervicalgia M54.2 [place] [address] [address] 14 Sep, 2017 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 [place] [address] [address] 13 Sep, 2017 Lumbar back pain with radicu lopathy affecting right lower extremity M54.17 [place] [address] [place] [id number] [address] [place] [address] 03 Sep, 2017 Acute right-sided low back p ain with right-sided sciatica M54.41 [place] [address] [place] [id number] [address] [place] [address] 30 Aug, 2017 Type 2 diabetes mellitus wit h other specified complication E11.69 ; HTN (hypertension) I10 ; Cervicalgia M54.2 ; Cervical stenosis of spine M48.02 ; Acute right hip pain M25.551 ; Atherosclerotic heart disease of [place] coronary artery without angina pectoris I25.10 ; Hypercholesterolemia E78.0 ; Parkinsons disease G20 and Depression F32.9 [facility] [address] [id number] [address] [place] [address] Aug, Other chronic pain G89.29 [facility] [address] [id number] [address] [place] [address] Jul, Other chronic pain G89.29 [facility] [address] [id number] [address] [place] [address] Jul, [facility] [address] [id number] [address] [place] [address] Jul, Cough R05 and Bronchitis J40 [facility] [address] [id number] [address] [place] [address] Jun, Other chronic pain G89.29 [facility] [address] [id number] [address] [place] [address] Jun, [facility] [address] [id number] [address] [place] [address] Jun, Atherosclerotic heart diseas e of [place] coronary artery without angina pectoris I25.10 and Cervicalgia M54.2 [facility] [address] [id number] [address] [place] [address] Jun, Cervicalgia M54.2 [facility] [address] [id number] [address] [place] [address] May, Other chronic pain G89.29 [facility] [address] [id number] [address] [place] [address] May, [facility] [address] [id number] [address] [place] [address] May, [facility] [address] [id number] [address] [place] [address] May, [facility] [address] [id number] [address] [place] [address] May, [facility] [address] [id number] [address] [place] [address] May, Type 2 diabetes mellitus wit h other specified complication E11.69 ; HTN (hypertension) I10 ; Atherosclerotic heart disease of [place] coronary artery without angina pectoris I25.10 ; Parkinsons disease G20 and Cervical stenosis of spine M48.02 [facility] [address] [facility] [id number] [address] [place] [address] Apr, Cervicalgia M54.2 [place] [address] [facility] [id number] [address] [place] [address] Apr, Type 2 diabetes mellitus wit h other specified complication E11.69 ; HTN (hypertension) I10 ; Depression F32.9 ; Atherosclerotic heart disease of [place] coronary artery without angina pectoris I25.10 ; Coronary atherosclerosis due to lipid rich plaque I25.83 ; Cervicalgia M54.2 ; Parkinsons disease G20 ; Chronic diarrhea K52.9 and Pure hypercholesterolemia E78.00 [place] [address] [facility] [id number] [address] [place] [address] March, Other chronic pain G89.29 [place] [address] [facility] [id number] [address] [place] [address] March, Other chronic pain G89.29 [place] [address] [facility] [id number] [address] [place] [address] Feb, Cervical stenosis of spine M 48.02 [facility] [address] [facility] [id number] [address] [place] [address] Feb, Other chronic pain G89.29 [place] [address] [facility] [id number] [address] [place] [address] Jan, [place] [address] [facility] [id number] [address] [place] [address] Jan, Other chronic pain G89.29 [place] [id number] [facility] [id number] [address] [place] [address] Jan, Other chronic pain G89.29 [facility] [address] [facility] [id number] [address] [place] [address] Jan, Type 2 diabetes mellitus wit h other specified complication E11.69 ; Atherosclerotic heart disease of [place] coronary artery without angina pectoris I25.10 ; Anxiety F41.9 ; HTN (hypertension) I10 ; Depression F32.9 ; Coronary atherosclerosis due to lipid rich plaque I25.83 ; Cervicalgia M54.2 ; Other chronic pain G89.29 and Functional 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 [facility] [address] [facility] [id number] [address] [place] [address] Nov, HTN (hypertension) I10 [place] [address] [place] [id number] [place] [address] Nov, Type 2 diabetes mellitus wit h other specified complication E11.69 ; Atherosclerotic heart disease of [place] coronary artery without angina pectoris I25.10 ; Hypercholesterolemia E78.0 ; Anxiety F41.9 ; Depression F32.9 ; Cervicalgia M54.2 and Functional 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 [facility] [address] [facility] [id number] [address] [place] [address] Oct, [place] [address] [facility] [id number] [address] [place] [address] Oct, Neck pain M54.2 [facility] [address] [facility] [id number] [address] [place] [address] Sep, [facility] [address] [facility] [id number] [address] [place] [address] Aug, [facility] [address] [facility] [id number] [address] [place] [address] Aug, [facility] [address] [place] [id number] [address] [place] [address] Jul, Visit for TB skin test Z11.1 and Screening for tuberculosis Z11.1 [facility] [address] [place] [id number] [address] [place] [address] May, [facility] [address] [facility] [id number] [address] [place] [address] May, Neck pain M54.2 [facility] [address] [facility] [id number] [address] [place] [address] May, [facility] [address] [facility] [id number] [address] [place] [address] Apr, Neck pain M54.2 [facility] [address] [id number] [address] [place] [address] Feb, Neck pain M54.2 [facility] [address] [facility] [id number] [address] [place] [address] Feb, [facility] [address] [facility] [id number] [address] [place] [address] Jan, Neck pain M54.2 [facility] [address] [facility] [id number] [address] [place] [address] Jan, [facility] [address] [facility] [id number] [address] [place] [address] Jan, Neck pain M54.2 [facility] [address] [facility] [id number] [address] [place] [address] Jan, Neck pain M54.2 ; Type 2 sarath betes mellitus with other specified complication E11.69 ; CAD (coronary artery disease) 414.00 ; Insomnia 780.52 ; Anxiety F41.9 ; Depression F32.9 ; Pre-ulcerative calluses L84 and Hypercholesterolemia E78.0 [facility] [address] [facility] [id number] [address] [place] [address] Nov, [facility] [address] [facility] [id number] [address] [place] [address] Nov, Type 2 diabetes mellitus wit h other specified complication E11.69 ; Pre-ulcerative calluses L84 ; HTN (hypertension) I10 ; Hypercholesterolemia E78.0 ; Anxiety F41.9 ; Depression F32.9 ; Environmental allergies Z91.09 and Osteoarthritis M19.90 [facility] [address] [address] Sep, [facility] [address] [address] Aug, Allergic rhinitis, seasonal J30.2 [facility] [address] [address] Jul, [facility] [address] [address] Jul, Other specified cardiac dysr hythmias 427.89 ; Essential hypertension, benign 401.1 ; Nondependent tobacco use disorder 305.1 ; Unspecified hereditary and idiopathic peripheral neuropathy 356.9 ; Diabetes mellitus without mention of complication, type II or unspecified type, not stated as uncontrolled 250.00 ; CAD (coronary artery disease) 414.00 ; Insomnia 780.52 and Depression 311 [facility] [address] [address] Jul, [facility] [address] [address] Jul, [facility] [address] [address] May, [facility] [address] [address] May, [facility] [address] [address] May, [facility] [address] [address] Apr, [facility] [address] [address] Apr, Skin lesion of face 709.9 an d Anxiety 300.00 [facility] [address] [address] March, [facility] [address] [id number] [address] [place] [address], [place] [address] 14 Feb, 2015 [facility] [address] [id number] [address] [place] [address], [place] [address] 13 Feb, 2015 [facility] [address] [id number] [address] [place] [address], [place] [address] 20 Jan, 2015 [facility] [address] [id number] [address] [place] [address], [place] [address] Jan, [facility] [address] [id number] [address] [place] [address], [place] [address] Jan, [facility] [address] [id number] [address] [place] [address], [place] [address] Jan, [facility] [address] [id number] [address] [place] [address], [place] [address] Jan, [facility] [address] [id number] [address] [place] [address], [place] [address] Jan, [facility] [address] [id number] [address] [place] [address], [place] [address] Dec, [facility] [address] [id number] [address] [place] [address], [place] [address] Dec, [facility] [address] [id number] [address] [place] [address], [place] [address] Nov, [facility] [address] [id number] [address] [place] [address], [place] [address] Nov, [facility] [address] [id number] [address] [place] [address], [place] [address] Oct, [facility] [address] [id number] [address] [place] [address], [place] [address] Oct, [facility] [address] [id number] [address] [place] [address], [place] [address] Oct, [facility] [address] [id number] [address] [place] [address], [place] [address] Oct, [facility] [address] [id number] [address] [place] [address], [place] [address] Sep, [facility] [address] [id number] [address] [place] [address], [place] [address] Sep, [facility] [address] [id number] [address] [place] [address], [place] [address] Sep, [facility] [address] [id number] [address] [place] [address], [place] [address] Sep, [facility] [address] [id number] [address] [place] [address], [place] [address] Sep, [facility] [address] [id number] [address] [place] [address], [place] [address] Sep, [facility] [address] [id number] [address] [place] [address], [place] [address] Aug, [facility] [address] [id number] [address] [place] [address], [place] [address] Aug, [facility] [address] [id number] [address] [place] [address], [place] [address] Aug, [facility] [address] [id number] [address] [place] [address], [place] [address] Aug, [facility] [address] [id number] [address] [place] [address] Aug, [facility] [address] [id number] [address] [place] [address] Aug, [facility] [address] [id number] [address] [place] [address], [place] [address] Aug, [facility] [address] [id number] [address] [place] [address], [place] [address] Aug, [facility] [address] [id number] [address] [place] [address], [place] [address] Aug, [facility] [address] [id number] [address] [place] [address], [place] [address] Aug, [facility] [address] [id number] [address] [place] [address], [place] [address] Jul, [facility] [address] [id number] [address] [place] [address], [place] [address] Jul, [facility] [address] [id number] [address] [place] [address], [place] [address] May, [facility] [address] [id number] [address] [place] [address], [place] [address] May, [facility] [address] [id number] [address] [place] [address], [place] [address] May, [facility] [address] [id number] [address] [place] [address], [place] [address] May, [facility] [address] [id number] [address] [place] [address], [place] [address] May, [facility] [address] [id number] [address] [place] [address], [place] [address] May, [facility] [address] [id number] [address] [place] [address], [place] [address] Apr, [facility] [address] [id number] [address] [place] [address], [place] [address] Apr, [facility] [address] [id number] [address] [place] [address], [place] [address] Apr, [facility] [address] [id number] [address] [place] [address], [place] [address] Apr, [facility] [address] [id number] [address] [place] [address], [place] [address] March, [facility] [address] [id number] [address] [place] [address], [place] [address] March, [facility] [address] [id number] [address] [place] [address], [place] [address] Feb, [facility] [address] [id number] [address] [place] [address], [place] [address] Feb, [facility] [address] [id number] [address] [place] [address], [place] [address] Jan, [facility] [address] [id number] [address] [place] [address], [place] [address] Jan, [facility] [address] [id number] [address] [place] [address], [place] [id number] Nov, [facility] [address] [id number] [address] [place] [address], [place] [id number] Nov, [facility] [address] [id number] [address] [place] [address], [place] [id number] Nov, [facility] [address] [id number] [address] [place] [address], [place] [id number] Nov, [facility] [address] [id number] [address] [place] [address], [place] [address] Nov, [facility] [address] [id number] [address] [place] [address], [place] [address] Nov, [facility] [address] [id number] [address] [place] [address], [place] [id number] Oct, [facility] [address] [id number] [address] [place] [address], [place] [id number] Oct, [facility] [address] [id number] [address] [place] [address], [place] [address] Aug, [facility] [address] [id number] [address] [place] [address], [place] [address] Aug, [facility] [address] [id number] [address] [place] [address], [place] [id number] Jul, [facility] [address] [id number] [address] [place] [address], [place] [address] Jun, [facility] [address] [id number] [address] [place] [id number] Jun, [facility] [address] [id number] [address] [place] [phone] Jun, [facility] [address] [id number] [address] [place] [id number] Jun, [facility] [address] [id number] [address] [place] [id number] Jun, [facility] [address] [id number] [address] [place] [phone] Jun, [facility] [address] [id number] [address] [place] [phone] May, [facility] [address] [id number] [address] [place] [id number] March, [facility] [address] [facility] [id number] [address] [place] [phone] March, [facility] [address] [id number] [address] [place] [phone] Jan, IMMUNIZATIONS No Known Immunizations SOCIAL HISTORY [...] cyst Hospitalization History surgery Hospitalization History [facility]- Right Leg Pain 09/21/2017 Hospitalization History [facility]- Severe Dehydr ation with Acute Renal Failure 05/06/2018 Hospitalization History Back surgery to remove cyst/ infecti on
--- OUTSIDE RECORDS SUMMARY | 2020-03-23 00:56 | XMS REPORT ---
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 Active 189762037 Problem Cervicalgia M54.2 Active 86812281 8003769 Problem Parkinsons disease G20 Active 4 6857621 Problem Hypercholesterolemia E78.0 Active 47790846 Problem 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 Active 056320497 Problem Panic F41.0 Active 74433105 Problem Cervical stenosis of spine M48.02 Act cynthia 31804441 Problem Carpal tunnel syndrome, right G56.01 Active [id number] Problem Other chronic pain G89.29 Active 8 6497106 Problem Lumbar spondylosis M47.816 Active 2 03822502 Problem Recurrent major depressive disorder, in full remission F33.42 Active 698417457 Problem Cannabis abuse F12.10 Active 16404 009 Problem Generalized anxiety disorder F41.1 A ctive [id number] ALLERGIES No Information ENCOUNTERS Encounter Location Date Diagnosis [facility] [address] [facility] [id number] [address] [place] [address] Jun, Carpal tunnel syndrome, righ t G56.[address] [address] May, Parkinsons disease G20 ; Hypercholestero lemia E78.0 and HTN (hypertension) I10 [facility] [address] [facility] [id number] [address] [place] [address] May, Tenosynovitis, Hollis M 65.4 ; Type 2 diabetes mellitus with other specified complication E11.69 ; Lumbar spondylosis M47.816 and HTN (hypertension) I10 [facility] [address] [facility] [id number] [address] [place] [address] March, [address] [address] Jan, [facility] [address] [facility] [id number] [address] [place] [phone] Dec, Hypercholesterolemia E78.0 [facility] [address] [facility] [id number] [address] [place] [address] Nov, HTN (hypertension) I10 [facility] [address] [facility] [id number] [address] [place] [address] Oct, Generalized anxiety disorder F41.1 and Panic F41.0 [place] [address] [facility] [id number] [address] [place] [address] Oct, Generalized anxiety disorder F41.1 and Panic F41.0 [place] [address] [facility] [id number] [address] [place] [address] Aug, Cervicalgia M54.2 [facility] [address] [facility] [id number] [address] [place] [address] Aug, Type 2 diabetes mellitus wit h other specified complication E11.69 ; HTN (hypertension) I10 ; Parkinsons disease G20 ; 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 ; Hypercholesterolemia E78.0 and Cervical stenosis of spine M48.02 [facility] [address] [facility] [id number] [address] [place] [address] Aug, Type 2 diabetes mellitus wit h other specified complication E11.69 [facility] [address] [facility] [id number] [address] [place] [address] May, [facility] [address] [place] [id number] [address] [place] [id number] Apr, [facility] [address] [facility] [id number] [address] [place] [address] 22 Apr, 2018 Dehydration E86.0 ; Acute re nal failure, unspecified acute renal failure type N17.9 ; Cannabis abuse F12.10 ; Type 2 diabetes mellitus with other specified complication E11.69 ; HTN (hypertension) I10 ; Parkinsons disease G20 ; Hypercholesterolemia E78.0 ; 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 ; Cervicalgia M54.2 ; Need for hepatitis C screening test Z11.59 and Recurrent major depressive disorder, in full remission F33.42 [place] [address] [facility] [id number] [address] [place] [id number] 18 Apr, 2018 [place] [address] [place] [id number] [place] [address] 14 Apr, 2018 Dehydration E86.0 ; Hypotens ion, unspecified hypotension type I95.9 ; Fall, initial encounter W19.XXXA ; Acute head injury without loss of consciousness, initial encounter S09.90XA ; Type 2 diabetes mellitus with other specified complication E11.69 ; HTN (hypertension) I10 and Parkinsons disease G20 [place] [address] [place] [id number] [address] [place] [address] Apr, [place] [address] [facility] [id number] [address] [place] [address] Apr, [place] [address] [place] [id number] [address] [place] [address] Feb, Cervicalgia M54.2 [place] [address] [facility] [id number] [address] [place] [address] Feb, Cervical stenosis of spine M 48.02 [place] [address] [facility] [id number] [address] [place] [address] Jan, Cervicalgia M54.2 [place] [address] [place] [id number] [address] [place] [address] Jan, Acute right-sided low back p ain with right-sided sciatica M54.41 [place] [id number] [facility] [id number] [address] [place] [address] Dec, Cervicalgia M54.2 [place] [address] [facility] [id number] [address] [place] [address] 02 Dec, 2017 Controlled substance agreeme nt signed Z79.899 [place] [address] [facility] [id number] [address] [place] [address] Oct, Cervicalgia M54.2 [place] [address] [facility] [id number] [address] [place] [address] Oct, Acute right-sided low back p ain with right-sided sciatica M54.41 [place] [address] [place] [id number] [address] [place] [phone] Oct, [place] [address] [place] [id number] [address] [place] [address] Sep, Cervicalgia M54.2 [place] [address] [facility] [id number] [address] [place] [address] 14 Sep, 2017 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 [place] [address] [facility] [id number] [address] [place] [address] 13 Sep, 2017 Lumbar back pain with radicu lopathy affecting right lower extremity M54.17 [place] [address] [place] [id number] [address] [place] [address] 03 Sep, 2017 Acute right-sided low back p ain with right-sided sciatica M54.41 [place] [address] [facility] [id number] [address] [place] [address] Aug, Type 2 diabetes mellitus wit h other specified complication E11.69 ; HTN (hypertension) I10 ; Cervicalgia M54.2 ; Cervical stenosis of spine M48.02 ; Acute right hip pain M25.551 ; 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 ; Hypercholesterolemia E78.0 ; Parkinsons disease G20 and Depression F32.9 [facility] [address] [id number] [address] [place] [address] Aug, Other chronic pain G89.29 [facility] [address] [id number] [address] [place] [address] Jul, Other chronic pain G89.29 [facility] [address] [id number] [address] [place] [id number] Jul, [facility] [address] [id number] [address] [place] [address] Jul, Cough R05 and Bronchitis J40 [facility] [address] [id number] [address] [place] [phone] Jun, Other chronic pain G89.29 [facility] [address] [id number] [address] [place] [phone] Jun, [facility] [address] [id number] [address] [place] [phone] Jun, 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 and Cervicalgia M54.2 [facility] [address] [id number] [address] [place] [address] Jun, Cervicalgia M54.2 [facility] [address] [id number] [address] [place] [address] May, Other chronic pain G89.29 [facility] [address] [id number] [address] [place] [id number] May, [facility] [address] [id number] [address] [place] [address] May, [facility] [address] [id number] [address] [place] [phone] May, [facility] [address] [id number] [address] [place] [phone] May, [facility] [address] [id number] [address] [place] [address] May, Type 2 diabetes mellitus wit h other specified complication E11.69 ; HTN (hypertension) I10 ; 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 ; Parkinsons disease G20 and Cervical stenosis of spine M48.02 [facility] [address] [facility] [id number] [address] [place] [address] Apr, Cervicalgia M54.2 [facility] [address] [facility] [id number] [address] [place] [address] Apr, Type 2 diabetes mellitus wit h other specified complication E11.69 ; HTN (hypertension) I10 ; Depression F32.9 ; 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 ; Coronary atherosclerosis due to lipid rich plaque I25.83 ; Cervicalgia M54.2 ; Parkinsons disease G20 ; Chronic diarrhea K52.9 and Pure hypercholesterolemia E78.00 [facility] [address] [facility] [id number] [address] [place] [address] March, Other chronic pain G89.29 [place] [id number] [id number] [address] [place] [address] March, Other chronic pain G89.29 [place] [address] [facility] [id number] [address] [place] [address] Feb, Cervical stenosis of spine M 48.02 [facility] [address] [facility] [id number] [address] [place] [phone] Feb, Other chronic pain G89.29 [facility] [address] [id number] [address] [place] [address] Jan, [facility] [address] [facility] [id number] [address] [place] [phone] Jan, Other chronic pain G89.29 [facility] [address] [facility] [id number] [address] [place] [address] Jan, Other chronic pain G89.29 [facility] [address] [facility] [id number] [address] [place] [address] Jan, Type 2 diabetes mellitus wit h other specified complication E11.69 ; 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 ; Anxiety F41.9 ; HTN (hypertension) I10 ; Depression F32.9 ; Coronary atherosclerosis due to lipid rich plaque I25.83 ; Cervicalgia M54.2 ; Other chronic pain G89.29 and Functional 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 [facility] [address] [facility] [id number] [place] [phone] Nov, HTN (hypertension) I10 [place] [address] [place] [id number] [place] [address] Nov, Type 2 diabetes mellitus wit h other specified complication E11.69 ; 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 ; Hypercholesterolemia E78.0 ; Anxiety F41.9 ; Depression F32.9 ; Cervicalgia M54.2 and Functional 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 [facility] [address] [place] [id number] [address] [place] [address] Oct, [facility] [address] [place] [id number] [place] [address] Oct, Neck pain M54.2 [facility] [address] [place] [id number] [place] [phone] Sep, [facility] [address] [facility] [id number] [address] [place] [phone] Aug, [facility] [address] [place] [id number] [address] [place] [phone] Aug, [facility] [address] [facility] [id number] [address] [place] [address] Jul, Visit for TB skin test Z11.1 and Screening for tuberculosis Z11.1 [facility] [address] [facility] [id number] [address] [place] [phone] May, [facility] [address] [place] [id number] [address] [place] [phone] May, Neck pain M54.2 [facility] [address] [facility] [id number] [address] [place] [phone] May, [facility] [address] [facility] [id number] [address] [place] [address] Apr, Neck pain M54.2 [facility] [address] [facility] [id number] [address] [place] [id number] Feb, Neck pain M54.2 [facility] [address] [facility] [id number] [address] [place] [id number] Feb, [facility] [address] [facility] [id number] [address] [place] [id number] Jan, Neck pain M54.2 [facility] [address] [place] [id number] [address] [place] [address] Jan, [facility] [address] [place] [id number] [address] [place] [id number] Jan, Neck pain M54.2 [facility] [address] [facility] [id number] [address] [place] [address] Jan, Neck pain M54.2 ; Type 2 sarath betes mellitus with other specified complication E11.69 ; CAD (coronary artery disease) 414.00 ; Insomnia 780.52 ; Anxiety F41.9 ; Depression F32.9 ; Pre-ulcerative calluses L84 and Hypercholesterolemia E78.0 [facility] [address] [place] [id number] [address] [place] [phone] Nov, [facility] [address] [facility] [id number] [address] [place] [address] Nov, Type 2 diabetes mellitus wit h other specified complication E11.69 ; Pre-ulcerative calluses L84 ; HTN (hypertension) I10 ; Hypercholesterolemia E78.0 ; Anxiety F41.9 ; Depression F32.9 ; Environmental allergies Z91.09 and Osteoarthritis M19.90 [facility] [address] [place] [id number] [address] [place] [address] Sep, [facility] [address] [place] [id number] [address] [place] [address] Aug, Allergic rhinitis, seasonal J30.2 [facility] [address] [place] [id number] [address] [place] [address] Jul, [facility] [address] [address] Jul, Other specified cardiac dysr hythmias 427.89 ; Essential hypertension, benign 401.1 ; Nondependent tobacco use disorder 305.1 ; Unspecified hereditary and idiopathic peripheral neuropathy 356.9 ; Diabetes mellitus without mention of complication, type II or unspecified type, not stated as uncontrolled 250.00 ; CAD (coronary artery disease) 414.00 ; Insomnia 780.52 and Depression 311 [facility] [address] [address] Jul, [facility] [address] [address] Jul, [facility] [address] [address] May, [facility] [address] [address] May, [facility] [address] [address] May, [facility] [address] [address] Apr, [facility] [address] [address] Apr, Skin lesion of face 709.9 an d Anxiety 300.00 [facility] [address] [place] [id number] [address] [place] [address] March, [facility] [address] [id number] Feb, [facility] [address] [id number] [address] [place] [address], [place] [address] Feb, [facility] [address] [id number] [address] [place] [address], [place] [address] Jan, [facility] [address] [id number] [address] [place] [address], [place] [address] Jan, [facility] [address] [id number] [address] [place] [address], [place] [address] Jan, [facility] [address] [id number] [address] [place] [address], [place] [address] Jan, [facility] [address] [id number] [address] [place] [address], [place] [address] Jan, [facility] [address] [id number] [address] [place] [address], [place] [address] Jan, [facility] [address] [id number] [address] [place] [address], [place] [address] Dec, [facility] [address] [id number] [address] [place] [address], [place] [address] Dec, [facility] [address] [id number] [address] [place] [address], [place] [address] Nov, [facility] [address] [id number] [address] [place] [address], [place] [address] Nov, [facility] [address] [id number] [address] [place] [address], [place] [address] Oct, [facility] [address] [id number] [address] [place] [address], [place] [address] Oct, [facility] [address] [id number] [address] [place] [address], [place] [address] Oct, [facility] [address] [id number] [address] [place] [address], [place] [address] Oct, [facility] [address] [id number] [address] [place] [address], [place] [address] Sep, [facility] [address] [id number] [address] [place] [address], [place] [address] Sep, [facility] [address] [id number] [address] [place] [address], [place] [address] Sep, [facility] [address] [id number] [address] [place] [address], [place] [address] Sep, [facility] [address] [id number] [address] [place] [address], [place] [address] Sep, [facility] [address] [id number] [address] [place] [address], [place] [address] Sep, [facility] [address] [id number] [address] [place] [address], [place] [address] Aug, [facility] [address] [id number] [address] [place] [address], [place] [address] Aug, [facility] [address] [id number] [address] [place] [address], [place] [address] Aug, [facility] [address] [id number] [address] [place] [address], [place] [address] Aug, [facility] [address] [id number] [address] [place] [address], [place] [address] Aug, [facility] [address] [id number] [address] [place] [address] Aug, [facility] [address] [id number] [address] [place] [id number] Aug, [facility] [address] [id number] [address] [place] [address], [place] [address] Aug, [facility] [address] [id number] [address] [place] [address] Aug, [facility] [address] [id number] [address] [place] [address], [place] [address] Aug, [facility] [address] [id number] [address] [place] [address], [place] [address] 05 Jul, 2013 [facility] [address] [id number] [address] [place] [address], [place] [address] Jul, 2013 [facility] [address] [id number] [address] [place] [address], [place] [address] May, [facility] [address] [id number] [address] [place] [address], [place] [address] May, [facility] [address] [id number] [address] [place] [address], [place] [address] May, [facility] [address] [id number] [address] [place] [address], [place] [address] May, [facility] [address] [id number] [address] [place] [address], [place] [address] May, [facility] [address] [id number] [address] [place] [address], [place] [address] May, [facility] [address] [id number] [address] [place] [address], [place] [address] Apr, [facility] [address] [id number] [address] [place] [address], [place] [address] Apr, [facility] [address] [id number] [address] [place] [address], [place] [address] Apr, [facility] [address] [id number] [address] [place] [address], [place] [address] Apr, [facility] [address] [id number] [address] [place] [address], [place] [address] March, [facility] [address] [id number] [address] [place] [address], [place] [address] March, [facility] [address] [id number] [address] [place] [address], [place] [address] Feb, [facility] [address] [id number] [address] [place] [address], [place] [address] Feb, [facility] [address] [id number] [address] [place] [address], [place] [address] Jan, [facility] [address] [id number] [address] [place] [address], [place] [address] Jan, [facility] [address] [id number] [address] [place] [address], [place] [address] Nov, [facility] [address] [id number] [address] [place] [address], [place] [address] Nov, [facility] [address] [id number] [address] [place] [address], [place] [address] Nov, [facility] [address] [id number] [address] [place] [address], [place] [address] Nov, [facility] [address] [id number] [address] [place] [address], [place] [address] Nov, [facility] [address] [id number] [address] [place] [address], [place] [address] Nov, [facility] [address] [id number] [address] [place] [address], [place] [address] Oct, [facility] [address] [id number] [address] [place] [address], [place] [address] Oct, [facility] [address] [id number] [address] [place] [address], [place] [address] Aug, [facility] [address] [id number] [address] [place] [address], [place] [address] Aug, [facility] [address] [id number] [address] [place], [place] [address], [place] [id number] Jul, [facility] [address] [id number] [address] [place] [address], [place] [id number] Jun, [facility] [address] [id number] [address] [place] [address], [place] [id number] Jun, [facility] [address] [id number] [address] [place] [id number] Jun, [facility] [address] [id number] [address] [place] [phone] Jun, [facility] [address] [id number] [address] [place] [id number] Jun, [facility] [address] [id number] [address] [place] [phone] Jun, [facility] [address] [id number] [address] [place] [phone] May, [facility] [address] [id number] [address] [place] [phone] March, [facility] [address] [id number] [address] [place] [phone] March, [facility] [address] [facility] [id number] [address] [place] [phone] Jan, IMMUNIZATIONS No Known Immunizations SOCIAL HISTORY [...] Hospitalization History surgery Hospitalization History Via [facility]- Right Leg Pain 09/21/2017 Hospitalization History [facility]- Severe Dehydr ation with Acute Renal Failure 05/06/2018 Hospitalization History Back surgery to remove cyst/ infecti on
--- OUTSIDE RECORDS SUMMARY | 2020-03-23 00:57 | XMS REPORT ---
Author Author Zoran [facility] Organization [facility] Address [address] [place] [address] Care Team Providers Care Chip Unloader Name Role Phone ANTWON ETIENNEMARS Unavailable PROBLEMS Type Condition ICD9-CM Code SUQ46-VX Code Onset Dates Condition S tatus SNOMED Code Problem Type 2 diabetes mellitus with other specified complication E11.69 Active 7691562 Problem Cervicalgia M54.2 Active 49892962 [id number] Problem HTN (hypertension) I10 Active 3 8614369 Problem Cervical stenosis of spine M48.02 Act cynthia 39021725 Problem Parkinsons disease G20 Active 4 5194527 Problem Hypercholesterolemia E78.0 Active 10394390 Problem Panic F41.0 Active 37610885 Problem Other chronic pain G89.29 Active 8 2756312 Problem Generalized anxiety disorder F41.1 A ctive 88877097 Problem 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 Active 324661299 Problem 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 Active 477226901 Problem Lumbar spondylosis M47.816 Active 2 80496753 Problem Cannabis abuse F12.10 Active 87369 009 Problem Recurrent major depressive disorder, in full remission F33.42 Active 517957610 ALLERGIES No Information ENCOUNTERS Encounter Location Date Diagnosis [facility] [address] [facility] [id number] [address] [place] [address] Jun, [address] [address] May, Parkinsons disease G20 ; Hypercholestero lemia E78.0 and HTN (hypertension) I10 [facility] [address] [facility] [id number] [address] [place] [address] May, Tenosynovitis, de Queriqra M 65.4 ; Type 2 diabetes mellitus with other specified complication E11.69 ; Lumbar spondylosis M47.816 and HTN (hypertension) I10 [facility] [address] [facility] [id number] [address] [place] [address] March, [facility] [address] [address] Jan, [facility] [address] [facility] [id number] [address] [place] [address] Dec, Hypercholesterolemia E78.0 [facility] [address] [facility] [id number] [address] [place] [address] Nov, HTN (hypertension) I10 [place] [address] [facility] [id number] [address] [place] [address] Oct, Generalized anxiety disorder F41.1 and Panic F41.0 [place] [address] [place] [id number] [address] [place] [address] Oct, Generalized anxiety disorder F41.1 and Panic F41.0 [facility] [address] [facility] [id number] [address] [place] [address] Aug, Cervicalgia M54.2 [facility] [address] [place] [id number] [address] [place] [address] Aug, Type 2 diabetes mellitus wit h other specified complication E11.69 ; HTN (hypertension) I10 ; Parkinsons disease G20 ; 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 ; Hypercholesterolemia E78.0 and Cervical stenosis of spine M48.02 [facility] [address] [facility] [id number] [address] [place] [address] Aug, Type 2 diabetes mellitus wit h other specified complication E11.69 [facility] [address] [facility] [id number] [address] [place] [address] May, [facility] [address] [facility] [id number] [address] [place] [address] Apr, [facility] [address] [facility] [id number] [address] [place] [address] 22 Apr, 2018 Dehydration E86.0 ; Acute re nal failure, unspecified acute renal failure type N17.9 ; Cannabis abuse F12.10 ; Type 2 diabetes mellitus with other specified complication E11.69 ; HTN (hypertension) I10 ; Parkinsons disease G20 ; Hypercholesterolemia E78.0 ; 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 ; Cervicalgia M54.2 ; Need for hepatitis C screening test Z11.59 and Recurrent major depressive disorder, in full remission F33.42 [place] [address] [place] [id number] [place] [address] 18 Apr, 2018 [place] [address] [place] [id number] [place] [address] 14 Apr, 2018 Dehydration E86.0 ; Hypotens ion, unspecified hypotension type I95.9 ; Fall, initial encounter W19.XXXA ; Acute head injury without loss of consciousness, initial encounter S09.90XA ; Type 2 diabetes mellitus with other specified complication E11.69 ; HTN (hypertension) I10 and Parkinsons disease G20 [place] [address] [place] [id number] [address] [place] [address] 14 Apr, 2018 [place] [address] [place] [id number] [place] [address] Apr, [place] [address] [facility] [id number] [address] [place] [address] Feb, Cervicalgia M54.2 [place] [address] [facility] [id number] [address] [place] [address] Feb, Cervical stenosis of spine M 48.02 [place] [address] [facility] [id number] [address] [place] [address] Jan, Cervicalgia M54.2 [place] [address] [place] [id number] [address] [place] [address] Jan, Acute right-sided low back p ain with right-sided sciatica M54.41 [place] [address] [place] [id number] [address] [place] [address] Dec, Cervicalgia M54.2 [place] [address] [facility] [id number] [address] [place] [address] Dec, Controlled substance agreeme nt signed Z79.899 [place] [address] [facility] [id number] [address] [place] [address] Oct, Cervicalgia M54.2 [place] [address] [facility] [id number] [address] [place] [address] Oct, Acute right-sided low back p ain with right-sided sciatica M54.41 [place] [address] [facility] [id number] [address] [place] [address] Oct, [place] [address] [facility] [id number] [address] [place] [address] Sep, Cervicalgia M54.2 [place] [address] [facility] [id number] [address] [place] [address] 14 Sep, 2017 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 [place] [address] [facility] [id number] [address] [place] [address] 13 Sep, 2017 Lumbar back pain with radicu lopathy affecting right lower extremity M54.17 [place] [address] [facility] [id number] [address] [place] [address] Sep, Acute right-sided low back p ain with right-sided sciatica M54.41 [place] [address] [facility] [id number] [address] [place] [address] 30 Aug, 2017 Type 2 diabetes mellitus wit h other specified complication E11.69 ; HTN (hypertension) I10 ; Cervicalgia M54.2 ; Cervical stenosis of spine M48.02 ; Acute right hip pain M25.551 ; 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 ; Hypercholesterolemia E78.0 ; Parkinsons disease G20 and Depression F32.9 [place] [address] [facility] [id number] [address] [place] [address] Aug, Other chronic pain G89.29 [facility] [address] [id number] [address] [place] [address] Jul, Other chronic pain G89.29 [facility] [address] [id number] [address] [place] [address] 21 Jul, 2017 [facility] [address] [id number] [address] [place] [address] 19 Jul, 2017 Cough R05 and Bronchitis J40 [facility] [address] [id number] [address] [place] [address] 30 Jun, 2017 Other chronic pain G89.29 [facility] [address] [id number] [address] [place] [address] Jun, [facility] [address] [id number] [address] [place] [address] Jun, 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 and Cervicalgia M54.2 [facility] [address] [id number] [address] [place] [address] Jun, Cervicalgia M54.2 [facility] [address] [id number] [address] [place] [address] May, Other chronic pain G89.29 [facility] [address] [id number] [address] [place] [address] May, [facility] [address] [id number] [address] [place] [address] May, [facility] [address] [id number] [address] [place] [address] May, [facility] [address] [id number] [address] [place] [address] May, [facility] [address] [facility] [id number] [address] [place] [address] May, Type 2 diabetes mellitus wit h other specified complication E11.69 ; HTN (hypertension) I10 ; 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 ; Parkinsons disease G20 and Cervical stenosis of spine M48.02 [facility] [address] [id number] [address] [place] [address] Apr, Cervicalgia M54.2 [facility] [address] [id number] [address] [place] [address] Apr, Type 2 diabetes mellitus wit h other specified complication E11.69 ; HTN (hypertension) I10 ; Depression F32.9 ; 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 ; Coronary atherosclerosis due to lipid rich plaque I25.83 ; Cervicalgia M54.2 ; Parkinsons disease G20 ; Chronic diarrhea K52.9 and Pure hypercholesterolemia E78.00 [place] [address] [id number] [address] [place] [address] March, Other chronic pain G89.29 [place] [address] [id number] [address] [place] [address] March, Other chronic pain G89.29 [place] [address] [id number] [address] [place] [address] Feb, Cervical stenosis of spine M 48.02 [facility] [address] [id number] [address] [place] [address] Feb, Other chronic pain G89.29 [facility] [address] [id number] [address] [place] [address] Jan, [place] [address] [id number] [address] [place] [address] Jan, Other chronic pain G89.29 [facility] [address] [id number] [address] [place] [address] Jan, Other chronic pain G89.29 [facility] [address] [id number] [address] [place] [address] Jan, Type 2 diabetes mellitus wit h other specified complication E11.69 ; 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 ; Anxiety F41.9 ; HTN (hypertension) I10 ; Depression F32.9 ; Coronary atherosclerosis due to lipid rich plaque I25.83 ; Cervicalgia M54.2 ; Other chronic pain G89.29 and Functional 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 [facility] [address] [facility] [id number] [address] [place] [address] Nov, HTN (hypertension) I10 [facility] [address] [facility] [id number] [address] [place] [address] Nov, Type 2 diabetes mellitus wit h other specified complication E11.69 ; 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 ; Hypercholesterolemia E78.0 ; Anxiety F41.9 ; Depression F32.9 ; Cervicalgia M54.2 and Functional 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 [facility] [address] [place] [id number] [address] [place] [address] Oct, [facility] [address] [place] [id number] [address] [place] [address] Oct, Neck pain M54.2 [facility] [address] [place] [id number] [address] [place] [address] Sep, [facility] [address] [place] [id number] [address] [place] [address] Aug, [facility] [address] [place] [id number] [address] [place] [address] Aug, [facility] [address] [facility] [id number] [address] [place] [address] Jul, Visit for TB skin test Z11.1 and Screening for tuberculosis Z11.1 [facility] [address] [place] [id number] [address] [place] [address] May, [facility] [address] [facility] [id number] [address] [place] [address] May, Neck pain M54.2 [facility] [address] [facility] [id number] [place] [address] May, [facility] [address] [address] Apr, Neck pain M54.2 [facility] [address] [place] [id number] [place] [address] Feb, Neck pain M54.2 [facility] [address] [phone] Feb, [facility] [address] [place] [id number] [place] [address] Jan, Neck pain M54.2 [facility] [address] [address] Jan, [facility] [address] [address] Jan, Neck pain M54.2 [facility] [address] [address] Jan, Neck pain M54.2 ; Type 2 sarath betes mellitus with other specified complication E11.69 ; CAD (coronary artery disease) 414.00 ; Insomnia 780.52 ; Anxiety F41.9 ; Depression F32.9 ; Pre-ulcerative calluses L84 and Hypercholesterolemia E78.0 [place] [address] [address] Nov, [facility] [address] [address] Nov, Type 2 diabetes mellitus wit h other specified complication E11.69 ; Pre-ulcerative calluses L84 ; HTN (hypertension) I10 ; Hypercholesterolemia E78.0 ; Anxiety F41.9 ; Depression F32.9 ; Environmental allergies Z91.09 and Osteoarthritis M19.90 [facility] [address] [address] Sep, [facility] [address] [address] Aug, Allergic rhinitis, seasonal J30.2 [facility] [address] [facility] [id number] [address] [place] [address] Jul, [facility] [address] [place] [id number] [address] [place] [address] Jul, Other specified cardiac dysr hythmias 427.89 ; Essential hypertension, benign 401.1 ; Nondependent tobacco use disorder 305.1 ; Unspecified hereditary and idiopathic peripheral neuropathy 356.9 ; Diabetes mellitus without mention of complication, type II or unspecified type, not stated as uncontrolled 250.00 ; CAD (coronary artery disease) 414.00 ; Insomnia 780.52 and Depression 311 [facility] [address] [place] [id number] [address] [place] [address] Jul, [facility] [address] [address] Jul, [facility] [address] [place] [id number] [address] [place] [phone] May, [facility] [address] [place] [id number] [address] [place] [address] May, [facility] [address] [address] May, [facility] [address] [place] [id number] [address] [place] [address] Apr, [facility] [address] [address] Apr, Skin lesion of face 709.9 an d Anxiety 300.00 [facility] [address] [place] [id number] [address] [place] [address] March, [facility] [address] [place] [id number] [address] [place] [address] Feb, [facility] [address] [place] [id number] [address] [place] [address] Feb, [facility] [address] [id number] [address] [place] [address], [place] [address] Jan, [facility] [address] [id number] [address] [place] [address], [place] [address] Jan, [facility] [address] [id number] [address] [place] [address], [place] [address] Jan, [facility] [address] [id number] [address] [place] [address], [place] [address] Jan, [facility] [address] [id number] [address] [place] [address], [place] [address] Jan, [facility] [address] [id number] [address] [place] [address], [place] [address] Jan, [facility] [address] [id number] [address] [place] [address], [place] [address] Dec, [facility] [address] [id number] [address] [place] [address], [place] [address] Dec, [facility] [address] [id number] [address] [place] [address], [place] [address] Nov, [facility] [address] [id number] [address] [place] [address], [place] [address] Nov, [facility] [address] [id number] [address] [place] [address], [place] [address] Oct, [facility] [address] [id number] [address] [place] [address], [place] [address] Oct, [facility] [address] [id number] [address] [place] [address], [place] [address] Oct, [facility] [address] [id number] [address] [place] [address], [place] [address] Oct, [facility] [address] [id number] [address] [place] [address], [place] [address] Sep, [facility] [address] [id number] [address] [place] [address], [place] [address] Sep, [facility] [address] [id number] [address] [place] [address], [place] [address] Sep, [facility] [address] [id number] [address] [place] [address], [place] [address] Sep, [facility] [address] [id number] [address] [place] [address], [place] [address] Sep, [facility] [address] [id number] [address] [place] [address] Sep, [facility] [address] [id number] [address] [place] [address], [place] [address] Aug, [facility] [address] [id number] [address] [place] [address], [place] [address] Aug, [facility] [address] [id number] [address] [place] [address], [place] [address] Aug, [facility] [address] [id number] [address] [place] [address], [place] [address] Aug, [facility] [address] [id number] [address] [place] [address], [place] [address] Aug, [facility] [address] [id number] [address] [place] [address], [place] [address] Aug, [facility] [address] [id number] [address] [place] [address], [place] [address] Aug, [facility] [address] [id number] [address] [place] [address] Aug, [facility] [address] [id number] [address] [place] [address], [place] [address] Aug, [facility] [address] [id number] [address] [place] [address], [place] [address] Aug, [facility] [address] [id number] [address] [place] [address], [place] [address] 05 Jul, 2014 [facility] [address] [id number] [address] [place] [address], [place] [address] Jul, [facility] [address] [id number] [address] [place] [address], [place] [address] May, [facility] [address] [id number] [address] [place] [address], [place] [address] May, [facility] [address] [id number] [address] [place] [address], [place] [address] May, [facility] [address] [id number] [address] [place] [address], [place] [address] May, [facility] [address] [id number] [address] [place] [address], [place] [address] May, [facility] [address] [id number] [address] [place] [address], [place] [address] May, [facility] [address] [id number] [address] [place] [address], [place] [address] Apr, [facility] [address] [id number] [address] [place] [address], [place] [address] Apr, [facility] [address] [id number] [address] [place] [address], [place] [address] Apr, [facility] [address] [id number] [address] [place] [address], [place] [address] Apr, [facility] [address] [id number] [address] [place] [address], [place] [address] March, [facility] [address] [id number] [address] [place] [address], [place] [address] March, [facility] [address] [id number] [address] [place] [address], [place] [address] Feb, [facility] [address] [id number] [address] [place] [address], [place] [address] Feb, [facility] [address] [id number] [address] [place] [address], [place] [address] Jan, [facility] [address] [id number] [address] [place] [address], [place] [address] Jan, [facility] [address] [id number] [address] [place] [address], [place] [address] Nov, [facility] [address] [id number] [address] [place] [address], [place] [address] Nov, [facility] [address] [id number] [address] [place] [address], [place] [address] Nov, [facility] [address] [id number] [address] [place] [address], [place] [address] Nov, [facility] [address] [id number] [address] [place] [address], [place] [address] Nov, [facility] [address] [id number] [address] [place] [address], [place] [address] Nov, [facility] [address] [id number] [address] [place] [address], [place] [address] Oct, [facility] [address] [id number] [address] [place] [address], [place] [address] Oct, [facility] [address] [id number] [address] [place] [id number] Aug, [facility] [address] [id number] [address] [place] [address], [place] [address] Aug, [facility] [address] [id number] [address] [place] [id number] Jul, [facility] [address] [id number] [address] [place] [address], [place] [address] Jun, [facility] [address] [id number] [address] [place] [address], [place] [address] Jun, [facility] [address] [id number] [address] [place] [id number] Jun, [facility] [address] [id number] [address] [place] [id number] Jun, [facility] [address] [facility] [id number] [address] [place] [phone] Jun, [facility] [address] [facility] [id number] [address] [place] [id number] Jun, [facility] [address] [facility] [id number] [address] [place] [phone] May, [facility] [address] [facility] [id number] [address] [place] [id number] March, [facility] [address] [facility] [id number] [address] [place] [id number] March, [facility] [address] [facility] [id number] [address] [place] [phone] Jan, IMMUNIZATIONS No Known Immunizations SOCIAL HISTORY [...] cyst Hospitalization History surgery Hospitalization History [facility] [address]- Right Leg Pain 09/21/2017 Hospitalization History [facility]- Severe Dehydr ation with Acute Renal Failure 05/06/2018 Hospitalization History Back surgery to remove cyst/ infecti on
--- OUTSIDE RECORDS SUMMARY | 2020-03-23 00:57 | XMS REPORT ---
Author Author Zoran OLIVER NA [facility] Organization [facility] Address [address] [place] [address] Care Team Providers Care Clay Pigeon Loader Name Role Phone ANTWON ETIENNEMARS Unavailable PROBLEMS Type Condition ICD9-CM Code YEH95-LW Code Onset Dates Condition S tatus SNOMED Code Problem HTN (hypertension) I10 Active 3 4469349 Problem Type 2 diabetes mellitus with other specified complication E11.69 Active 4199224 Problem Atherosclerotic heart diseas e of [place] coronary artery without angina pectoris I25.10 Active 173720756 Problem Cervicalgia M54.2 Active 49510335 7786271 Problem Parkinsons disease G20 Active 4 3521412 Problem Hypercholesterolemia E78.0 Active 63744642 Problem 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 Active 624368755 Problem Panic F41.0 Active 88922628 Problem Cervical stenosis of spine M48.02 Act cynthia 42500601 Problem Carpal tunnel syndrome, right G56.01 Active 244659380151577 Problem Other chronic pain G89.29 Active 8 7499320 Problem Lumbar spondylosis M47.816 Active 2 11288418 Problem Recurrent major depressive disorder, in full remission F33.42 Active 008703490 Problem Cannabis abuse F12.10 Active 32511 009 Problem Generalized anxiety disorder F41.1 A ctive [id number] ALLERGIES No Information ENCOUNTERS Encounter Location Date Diagnosis [facility] [address] [facility] [id number] [address] [place] [address] Jun, Carpal tunnel syndrome, righ t G56.[address] [address] May, Parkinsons disease G20 ; Hypercholestero lemia E78.0 and HTN (hypertension) I10 [facility] [address] [facility] [id number] [address] [place] [address] May, Tenosynovitis, Hollis M 65.4 ; Type 2 diabetes mellitus with other specified complication E11.69 ; Lumbar spondylosis M47.816 and HTN (hypertension) I10 [facility] [address] [facility] [id number] [address] [place] [address] March, [address] [address] Jan, [facility] [address] [facility] [id number] [address] [place] [address] Dec, Hypercholesterolemia E78.0 [facility] [address] [facility] [id number] [address] [place] [address] Nov, HTN (hypertension) I10 [facility] [address] [facility] [id number] [address] [place] [address] Oct, Generalized anxiety disorder F41.1 and Panic F41.0 [place] [address] [facility] [id number] [address] [place] [address] Oct, Generalized anxiety disorder F41.1 and Panic F41.0 [place] [address] [facility] [id number] [address] [place] [address] Aug, Cervicalgia M54.2 [facility] [address] [facility] [id number] [address] [place] [address] Aug, Type 2 diabetes mellitus wit h other specified complication E11.69 ; HTN (hypertension) I10 ; Parkinsons disease G20 ; Atherosclerotic heart disease of [place] coronary artery without angina pectoris I25.10 ; Hypercholesterolemia E78.0 and Cervical stenosis of spine M48.02 [facility] [address] [facility] [id number] [address] [place] [address] Aug, Type 2 diabetes mellitus wit h other specified complication E11.69 [facility] [address] [facility] [id number] [address] [place] [address] May, [facility] [address] [place] [id number] [address] [place] [address] Apr, [facility] [address] [facility] [id number] [address] [place] [address] 22 Apr, 2018 Dehydration E86.0 ; Acute re nal failure, unspecified acute renal failure type N17.9 ; Cannabis abuse F12.10 ; Type 2 diabetes mellitus with other specified complication E11.69 ; HTN (hypertension) I10 ; Parkinsons disease G20 ; Hypercholesterolemia E78.0 ; Atherosclerotic heart disease of [place] coronary artery without angina pectoris I25.10 ; Cervicalgia M54.2 ; Need for hepatitis C screening test Z11.59 and Recurrent major depressive disorder, in full remission F33.42 [place] [address] [facility] [id number] [address] [place] [address] 18 Apr, 2018 [place] [address] [place] [id number] [place] [address] 14 Apr, 2018 Dehydration E86.0 ; Hypotens ion, unspecified hypotension type I95.9 ; Fall, initial encounter W19.XXXA ; Acute head injury without loss of consciousness, initial encounter S09.90XA ; Type 2 diabetes mellitus with other specified complication E11.69 ; HTN (hypertension) I10 and Parkinsons disease G20 [place] [address] [place] [id number] [address] [place] [address] Apr, [place] [address] [facility] [id number] [address] [place] [address] Apr, [place] [address] [place] [id number] [address] [place] [address] Feb, Cervicalgia M54.2 [place] [address] [facility] [id number] [address] [place] [address] Feb, Cervical stenosis of spine M 48.02 [place] [address] [facility] [id number] [address] [place] [address] Jan, Cervicalgia M54.2 [place] [address] [place] [id number] [address] [place] [address] Jan, Acute right-sided low back p ain with right-sided sciatica M54.41 [place] [address] [facility] [id number] [address] [place] [address] Dec, Cervicalgia M54.2 [place] [address] [facility] [id number] [address] [place] [address] 02 Dec, 2017 Controlled substance agreeme nt signed Z79.899 [place] [address] [facility] [id number] [address] [place] [address] Oct, Cervicalgia M54.2 [place] [address] [facility] [id number] [address] [place] [address] Oct, Acute right-sided low back p ain with right-sided sciatica M54.41 [place] [address] [place] [id number] [address] [place] [address] Oct, [place] [address] [place] [id number] [address] [place] [address] Sep, Cervicalgia M54.2 [place] [address] [facility] [id number] [address] [place] [address] 14 Sep, 2017 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 [place] [address] [facility] [id number] [address] [place] [address] 13 Sep, 2017 Lumbar back pain with radicu lopathy affecting right lower extremity M54.17 [place] [address] [place] [id number] [address] [place] [id number] 03 Sep, 2017 Acute right-sided low back p ain with right-sided sciatica M54.41 [place] [address] [facility] [id number] [address] [place] [address] Aug, Type 2 diabetes mellitus wit h other specified complication E11.69 ; HTN (hypertension) I10 ; Cervicalgia M54.2 ; Cervical stenosis of spine M48.02 ; Acute right hip pain M25.551 ; Atherosclerotic heart disease of [place] coronary artery without angina pectoris I25.10 ; Hypercholesterolemia E78.0 ; Parkinsons disease G20 and Depression F32.9 [facility] [address] [id number] [address] [place] [address] Aug, Other chronic pain G89.29 [facility] [address] [id number] [address] [place] [address] Jul, Other chronic pain G89.29 [facility] [address] [id number] [address] [place] [address] Jul, [facility] [address] [id number] [address] [place] [address] Jul, Cough R05 and Bronchitis J40 [facility] [address] [id number] [address] [place] [address] Jun, Other chronic pain G89.29 [facility] [address] [id number] [address] [place] [address] Jun, [facility] [address] [id number] [address] [place] [address] Jun, Atherosclerotic heart diseas e of [place] coronary artery without angina pectoris I25.10 and Cervicalgia M54.2 [facility] [address] [id number] [address] [place] [address] Jun, Cervicalgia M54.2 [facility] [address] [id number] [address] [place] [address] May, Other chronic pain G89.29 [facility] [address] [id number] [address] [place] [address] May, [facility] [address] [id number] [address] [place] [address] May, [facility] [address] [id number] [address] [place] [address] May, [facility] [address] [id number] [address] [place] [address] May, [facility] [address] [id number] [address] [place] [address] May, Type 2 diabetes mellitus wit h other specified complication E11.69 ; HTN (hypertension) I10 ; Atherosclerotic heart disease of [place] coronary artery without angina pectoris I25.10 ; Parkinsons disease G20 and Cervical stenosis of spine M48.02 [facility] [address] [facility] [id number] [address] [place] [address] Apr, Cervicalgia M54.2 [facility] [address] [facility] [id number] [address] [place] [address] Apr, Type 2 diabetes mellitus wit h other specified complication E11.69 ; HTN (hypertension) I10 ; Depression F32.9 ; Atherosclerotic heart disease of [place] coronary artery without angina pectoris I25.10 ; Coronary atherosclerosis due to lipid rich plaque I25.83 ; Cervicalgia M54.2 ; Parkinsons disease G20 ; Chronic diarrhea K52.9 and Pure hypercholesterolemia E78.00 [facility] [address] [facility] [id number] [address] [place] [address] March, Other chronic pain G89.29 [place] [address] [id number] [address] [place] [address] March, Other chronic pain G89.29 [place] [address] [facility] [id number] [address] [place] [address] Feb, Cervical stenosis of spine M 48.02 [facility] [address] [facility] [id number] [address] [place] [address] Feb, Other chronic pain G89.29 [facility] [address] [id number] [address] [place] [address] Jan, [facility] [address] [facility] [id number] [address] [place] [address] Jan, Other chronic pain G89.29 [facility] [address] [facility] [id number] [address] [place] [address] Jan, Other chronic pain G89.29 [facility] [address] [facility] [id number] [address] [place] [address] Jan, Type 2 diabetes mellitus wit h other specified complication E11.69 ; Atherosclerotic heart disease of [place] coronary artery without angina pectoris I25.10 ; Anxiety F41.9 ; HTN (hypertension) I10 ; Depression F32.9 ; Coronary atherosclerosis due to lipid rich plaque I25.83 ; Cervicalgia M54.2 ; Other chronic pain G89.29 and Functional 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 [facility] [address] [facility] [id number] [place] [address] Nov, HTN (hypertension) I10 [place] [address] [place] [id number] [place] [address] Nov, Type 2 diabetes mellitus wit h other specified complication E11.69 ; Atherosclerotic heart disease of [place] coronary artery without angina pectoris I25.10 ; Hypercholesterolemia E78.0 ; Anxiety F41.9 ; Depression F32.9 ; Cervicalgia M54.2 and Functional 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 [facility] [address] [place] [id number] [address] [place] [address] Oct, [facility] [address] [place] [id number] [place] [address] Oct, Neck pain M54.2 [facility] [address] [place] [id number] [place] [address] Sep, [facility] [address] [facility] [id number] [address] [place] [address] Aug, [facility] [address] [place] [id number] [address] [place] [address] Aug, [facility] [address] [facility] [id number] [address] [place] [address] Jul, Visit for TB skin test Z11.1 and Screening for tuberculosis Z11.1 [facility] [address] [facility] [id number] [address] [place] [address] May, [facility] [address] [place] [id number] [address] [place] [address] May, Neck pain M54.2 [facility] [address] [facility] [id number] [address] [place] [address] May, [facility] [address] [facility] [id number] [address] [place] [address] Apr, Neck pain M54.2 [facility] [address] [facility] [id number] [address] [place] [address] Feb, Neck pain M54.2 [facility] [address] [facility] [id number] [address] [place] [address] Feb, [facility] [address] [facility] [id number] [address] [place] [address] Jan, Neck pain M54.2 [facility] [address] [place] [id number] [address] [place] [address] Jan, [facility] [address] [place] [id number] [address] [place] [address] Jan, Neck pain M54.2 [facility] [address] [facility] [id number] [address] [place] [address] Jan, Neck pain M54.2 ; Type 2 sarath betes mellitus with other specified complication E11.69 ; CAD (coronary artery disease) 414.00 ; Insomnia 780.52 ; Anxiety F41.9 ; Depression F32.9 ; Pre-ulcerative calluses L84 and Hypercholesterolemia E78.0 [facility] [address] [place] [id number] [address] [place] [address] Nov, [facility] [address] [facility] [id number] [address] [place] [address] Nov, Type 2 diabetes mellitus wit h other specified complication E11.69 ; Pre-ulcerative calluses L84 ; HTN (hypertension) I10 ; Hypercholesterolemia E78.0 ; Anxiety F41.9 ; Depression F32.9 ; Environmental allergies Z91.09 and Osteoarthritis M19.90 [facility] [address] [place] [id number] [address] [place] [address] Sep, [facility] [address] [place] [id number] [address] [place] [address] Aug, Allergic rhinitis, seasonal J30.2 [facility] [address] [place] [id number] [address] [place] [address] Jul, [facility] [address] [address] Jul, Other specified cardiac dysr hythmias 427.89 ; Essential hypertension, benign 401.1 ; Nondependent tobacco use disorder 305.1 ; Unspecified hereditary and idiopathic peripheral neuropathy 356.9 ; Diabetes mellitus without mention of complication, type II or unspecified type, not stated as uncontrolled 250.00 ; CAD (coronary artery disease) 414.00 ; Insomnia 780.52 and Depression 311 [facility] [address] [address] Jul, [facility] [address] [address] Jul, [facility] [address] [id number] May, [facility] [address] [address] May, [facility] [address] [address] May, [facility] [address] [address] Apr, [facility] [address] [address] Apr, Skin lesion of face 709.9 an d Anxiety 300.00 [facility] [address] [place] [id number] [address] [place] [address] March, [facility] [address] [address] Feb, [facility] [address] [id number] [address] [place] [address], [place] [address] Feb, [facility] [address] [id number] [address] [place] [address], [place] [address] Jan, [facility] [address] [id number] [address] [place] [address], [place] [address] Jan, [facility] [address] [id number] [address] [place] [address], [place] [address] Jan, [facility] [address] [id number] [address] [place] [address], [place] [address] Jan, [facility] [address] [id number] [address] [place] [address], [place] [address] Jan, [facility] [address] [id number] [address] [place] [address], [place] [address] Jan, [facility] [address] [id number] [address] [place] [address], [place] [address] Dec, [facility] [address] [id number] [address] [place] [address], [place] [address] Dec, [facility] [address] [id number] [address] [place] [address], [place] [address] Nov, [facility] [address] [id number] [address] [place] [address], [place] [address] Nov, [facility] [address] [id number] [address] [place] [address], [place] [address] Oct, [facility] [address] [id number] [address] [place] [address], [place] [address] Oct, [facility] [address] [id number] [address] [place] [address], [place] [address] Oct, [facility] [address] [id number] [address] [place] [address], [place] [address] Oct, [facility] [address] [id number] [address] [place] [address], [place] [address] Sep, [facility] [address] [id number] [address] [place] [address], [place] [address] Sep, [facility] [address] [id number] [address] [place] [address], [place] [address] Sep, [facility] [address] [id number] [address] [place] [address], [place] [address] Sep, [facility] [address] [id number] [address] [place] [address], [place] [address] Sep, [facility] [address] [id number] [address] [place] [address], [place] [address] Sep, [facility] [address] [id number] [address] [place] [address], [place] [address] Aug, [facility] [address] [id number] [address] [place] [address], [place] [address] Aug, [facility] [address] [id number] [address] [place] [address], [place] [address] Aug, [facility] [address] [id number] [address] [place] [address], [place] [address] Aug, [facility] [address] [id number] [address] [place] [address], [place] [address] Aug, [facility] [address] [id number] [address] [place] [address] Aug, [facility] [address] [id number] [address] [place] [address] Aug, [facility] [address] [id number] [address] [place] [address], [place] [address] Aug, [facility] [address] [id number] [address] [place] [address] Aug, [facility] [address] [id number] [address] [place] [address], [place] [address] Aug, [facility] [address] [id number] [address] [place] [address], [place] [address] 05 Jul, 2013 [facility] [address] [id number] [address] [place] [address], [place] [address] Jul, 2013 [facility] [address] [id number] [address] [place] [address], [place] [address] May, [facility] [address] [id number] [address] [place] [address], [place] [address] May, [facility] [address] [id number] [address] [place] [address], [place] [address] May, [facility] [address] [id number] [address] [place] [address], [place] [address] May, [facility] [address] [id number] [address] [place] [address], [place] [address] May, [facility] [address] [id number] [address] [place] [address], [place] [address] May, [facility] [address] [id number] [address] [place] [address], [place] [address] Apr, [facility] [address] [id number] [address] [place] [address], [place] [address] Apr, [facility] [address] [id number] [address] [place] [address], [place] [address] Apr, [facility] [address] [id number] [address] [place] [address], [place] [address] Apr, [facility] [address] [id number] [address] [place] [address], [place] [address] March, [facility] [address] [id number] [address] [place] [address], [place] [address] March, [facility] [address] [id number] [address] [place] [address], [place] [address] Feb, [facility] [address] [id number] [address] [place] [address], [place] [address] Feb, [facility] [address] [id number] [address] [place] [address], [place] [address] Jan, [facility] [address] [id number] [address] [place] [address], [place] [address] Jan, [facility] [address] [id number] [address] [place] [address], [place] [address] Nov, [facility] [address] [id number] [address] [place] [address], [place] [address] Nov, [facility] [address] [id number] [address] [place] [address], [place] [address] Nov, [facility] [address] [id number] [address] [place] [address], [place] [address] Nov, [facility] [address] [id number] [address] [place] [address], [place] [address] Nov, [facility] [address] [id number] [address] [place] [address], [place] [address] Nov, [facility] [address] [id number] [address] [place] [address], [place] [address] Oct, [facility] [address] [id number] [address] [place] [address], [place] [address] Oct, [facility] [address] [id number] [address] [place] [address], [place] [address] Aug, [facility] [address] [id number] [address] [place] [address], [place] [address] Aug, [facility] [address] [id number] [address] [place] [address], [place] [address] Jul, [facility] [address] [id number] [address] [place] [address], [place] [address] Jun, [facility] [address] [id number] [address] [place] [address], [place] [address] Jun, [facility] [address] [id number] [address] [place] [id number] Jun, [facility] [address] [id number] [address] [place] [id number] Jun, [facility] [address] [id number] [address] [place] [id number] Jun, [facility] [address] [id number] [address] [place] [id number] Jun, [facility] [address] [id number] [address] [place] [id number] May, [facility] [address] [id number] [address] [place] [id number] March, [facility] [address] [id number] [address] [place] [id number] March, [facility] [address] [facility] [id number] [place] [id number] Jan, IMMUNIZATIONS No Known Immunizations SOCIAL HISTORY [...] [facility]- Right Leg Pain 09/21/2017 Hospitalization History [facility]- Severe Dehydr ation with Acute Renal Failure 05/06/2018 Hospitalization History Back surgery to remove cyst/ infecti on
--- OUTSIDE RECORDS SUMMARY | 2020-03-23 00:57 | XMS REPORT ---
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 Active 131963030 Problem Cervicalgia M54.2 Active 58626252 4124813 Problem Parkinsons disease G20 Active 4 4528201 Problem Hypercholesterolemia E78.0 Active 78065594 Problem 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 Active 220885268 Problem Panic F41.0 Active 06430142 Problem Cervical stenosis of spine M48.02 Act cynthia 78734584 Problem Carpal tunnel syndrome, right G56.01 Active [id number] Problem Other chronic pain G89.29 Active 8 6700489 Problem Lumbar spondylosis M47.816 Active 2 34705486 Problem Recurrent major depressive disorder, in full remission F33.42 Active 505796565 Problem Cannabis abuse F12.10 Active 01276 009 Problem Generalized anxiety disorder F41.1 A ctive [id number] ALLERGIES No Information ENCOUNTERS Encounter Location Date Diagnosis [facility] [address] [facility] [id number] [address] [place] [address] Jun, Carpal tunnel syndrome, righ t G56.[address] [address] May, Parkinsons disease G20 ; Hypercholestero lemia E78.0 and HTN (hypertension) I10 [facility] [address] [facility] [id number] [address] [place] [id number] May, Tenosynovitis, de Quervain M 65.4 ; Type 2 diabetes mellitus with other specified complication E11.69 ; Lumbar spondylosis M47.816 and HTN (hypertension) I10 [facility] [address] [facility] [id number] [address] [place] [address] March, [facility] [address] [address] Jan, [facility] [address] [facility] [id number] [address] [place] [id number] Dec, Hypercholesterolemia E78.0 [facility] [address] [facility] [id number] [address] [place] [address] Nov, HTN (hypertension) I10 [facility] [address] [facility] [id number] [address] [place] [id number] Oct, Generalized anxiety disorder F41.1 and Panic F41.0 [facility] [address] [facility] [id number] [address] [place] [id number] Oct, Generalized anxiety disorder F41.1 and Panic F41.0 [facility] [address] 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 [id number] [address] [place] [id number] Aug, Type 2 diabetes mellitus wit h other specified complication E11.69 [facility] [address] [facility] [id number] [address] [place] [id number] May, [facility] [address] [place] [id number] [address] [place] [id number] Apr, [facility] [address] 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 ; Cervicalgia M54.2 ; Need for hepatitis C screening test Z11.59 and Recurrent major depressive disorder, in full remission F33.42 [place] [address] [place] [id number] [place] [id number] 18 Apr, 2018 [place] [address] [place] [id number] [place] [address] 14 Apr, 2018 Dehydration E86.0 ; Hypotens ion, unspecified hypotension type I95.9 ; Fall, initial encounter W19.XXXA ; Acute head injury without loss of consciousness, initial encounter S09.90XA ; Type 2 diabetes mellitus with other specified complication E11.69 ; HTN (hypertension) I10 and Parkinsons disease G20 [place] [address] [address] 14 Apr, 2018 [place] [address] [place] [id number] [address] [place] [id number] 12 Apr, 2018 [place] [address] [place] [id number] [address] [place] [address] Feb, Cervicalgia M54.2 [place] [address] [place] [id number] [address] [place] [address] Feb, Cervical stenosis of spine M 48.02 [place] [address] [place] [id number] [address] [place] [id number] Jan, Cervicalgia M54.2 [place] [address] [place] [id number] [address] [place] [address] Jan, Acute right-sided low back p ain with right-sided sciatica M54.41 [place] [address] [place] [id number] [address] [place] [phone] Dec, Cervicalgia M54.2 [facility] [address] [facility] [id number] [address] [place] [address] Dec, Controlled substance agreeme nt signed Z79.899 [facility] [address] [id number] [address] [place] [id number] Oct, Cervicalgia M54.2 [place] [address] [facility] [id number] [address] [place] [id number] Oct, Acute right-sided low back p ain with right-sided sciatica M54.41 [place] [address] [facility] [id number] [address] [place] [id number] Oct, [place] [address] [facility] [id number] [address] [place] [address] Sep, Cervicalgia M54.2 [place] [address] 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 [id number] [address] [place] [address] 13 Sep, 2017 Lumbar back pain with radicu lopathy affecting right lower extremity M54.17 [place] [address] [facility] [id number] [address] [place] [address] 03 Sep, 2017 Acute right-sided low back p ain with right-sided sciatica M54.41 [place] [address] 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 [id number] [address] [place] [address] Aug, Other chronic pain G89.29 [facility] [address] [id number] [address] [place] [id number] 27 Jul, 2017 Other chronic pain G89.29 [facility] [address] [id number] [address] [place] [id number] 21 Jul, 2017 [facility] [address] [id number] [address] [place] [id number] 19 Jul, 2017 Cough R05 and Bronchitis J40 [facility] [address] [id number] [address] [place] [id number] 30 Jun, 2017 Other chronic pain G89.29 [facility] [address] [id number] [address] [place] [phone] Jun, [facility] [address] [id number] [address] [place] [id number] Jun, 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 and Cervicalgia M54.2 [facility] [address] [id number] [address] [place] [id number] Jun, Cervicalgia M54.2 [facility] [address] [id number] [address] [place] [address] May, Other chronic pain G89.29 [facility] [address] [id number] [address] [place] [phone] May, [facility] [address] [id number] [address] [place] [id number] May, [facility] [address] [id number] [address] [place] [id number] May, [facility] [address] [id number] [address] [place] [id number] May, [facility] [address] 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 ; Parkinsons disease G20 and Cervical stenosis of spine M48.02 [facility] [address] [id number] [address] [place] [id number] Apr, Cervicalgia M54.2 [facility] [address] [id number] [address] [place] [id number] Apr, Type 2 diabetes mellitus wit h other specified complication E11.69 ; HTN (hypertension) I10 ; Depression F32.9 ; 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 ; Coronary atherosclerosis due to lipid rich plaque I25.83 ; Cervicalgia M54.2 ; Parkinsons disease G20 ; Chronic diarrhea K52.9 and Pure hypercholesterolemia E78.00 [place] [address] [id number] [address] [place] [address] March, Other chronic pain G89.29 [place] [address] [id number] [address] [place] [id number] March, Other chronic pain G89.29 [place] [address] [id number] [address] [place] [id number] Feb, Cervical stenosis of spine M 48.02 [facility] [address] [id number] [address] [place] [address] Feb, Other chronic pain G89.29 [place] [address] [id number] [address] [place] [phone] Jan, [place] [address] [id number] [address] [place] [id number] Jan, Other chronic pain G89.29 [place] [address] [id number] [address] [place] [address] Jan, Other chronic pain G89.29 [place] [address] [id number] [address] [place] [id number] Jan, Type 2 diabetes mellitus wit h other specified complication E11.69 ; 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 [id number] [address] [place] [id number] 10 Nov, 2016 HTN (hypertension) I10 [facility] [address] 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 [id number] [address] [place] [id number] Oct, Neck pain M54.2 [facility] [address] [place] [id number] [address] [place] [id number] Sep, [facility] [address] [place] [id number] [address] [place] [id number] Aug, [facility] [address] [facility] [id number] [address] [place] [phone] Aug, [facility] [address] [facility] [id number] [address] [place] [phone] Jul, Visit for TB skin test Z11.1 and Screening for tuberculosis Z11.1 [facility] [address] [facility] [id number] [address] [place] [id number] May, [facility] [address] [facility] [id number] [address] [place] [phone] May, Neck pain M54.2 [facility] [address] [facility] [id number] [address] [place] [phone] May, [facility] [address] [address] Apr, Neck pain M54.2 [facility] [address] [id number] Feb, Neck pain M54.2 [facility] [address] [address] Feb, [facility] [address] [address] Jan, Neck pain M54.2 [facility] [address] [address] Jan, [facility] [address] [address] Jan, Neck pain M54.2 [facility] [address] [address] Jan, Neck pain M54.2 ; Type 2 sarath betes mellitus with other specified complication E11.69 ; CAD (coronary artery disease) 414.00 ; Insomnia 780.52 ; Anxiety F41.9 ; Depression F32.9 ; Pre-ulcerative calluses L84 and Hypercholesterolemia E78.0 [place] [address] [address] Nov, [facility] [address] [address] Nov, Type 2 diabetes mellitus wit h other specified complication E11.69 ; Pre-ulcerative calluses L84 ; HTN (hypertension) I10 ; Hypercholesterolemia E78.0 ; Anxiety F41.9 ; Depression F32.9 ; Environmental allergies Z91.09 and Osteoarthritis M19.90 [facility] [address] [address] Sep, [facility] [address] [address] Aug, Allergic rhinitis, seasonal J30.2 [facility] [address] [place] [id number] [address] [place] [id number] Jul, [facility] [address] [place] [id number] [place] [address] Jul, Other specified cardiac dysr hythmias 427.89 ; Essential hypertension, benign 401.1 ; Nondependent tobacco use disorder 305.1 ; Unspecified hereditary and idiopathic peripheral neuropathy 356.9 ; Diabetes mellitus without mention of complication, type II or unspecified type, not stated as uncontrolled 250.00 ; CAD (coronary artery disease) 414.00 ; Insomnia 780.52 and Depression 311 [facility] [address] [address] Jul, [facility] [address] [place] [id number] [place] [address] Jul, [facility] [address] [address] May, [facility] [address] [place] [id number] [address] [place] [id number] May, [facility] [address] [address] May, [facility] [address] [place] [id number] [address] [place] [address] Apr, [facility] [address] [address] Apr, Skin lesion of face 709.9 an d Anxiety 300.00 [facility] [address] [place] [id number] [address] [place] [phone] March, [facility] [address] [address] Feb, [facility] [address] [place] [id number] [address] [place] [phone] Feb, [facility] [address] [id number] [address] [place] [address], [place] [address] Jan, [facility] [address] [id number] [address] [place] [address], [place] [address] Jan, [facility] [address] [id number] [address] [place] [address], [place] [address] Jan, [facility] [address] [id number] [address] [place] [address], [place] [address] Jan, [facility] [address] [id number] [address] [place] [address], [place] [address] Jan, [facility] [address] [id number] [address] [place] [address], [place] [address] Jan, [facility] [address] [id number] [address] [place] [address], [place] [address] Dec, [facility] [address] [id number] [address] [place] [address], [place] [address] Dec, [facility] [address] [id number] [address] [place] [address], [place] [address] Nov, [facility] [address] [id number] [address] [place] [address], [place] [address] Nov, [facility] [address] [id number] [address] [place] [address], [place] [address] Oct, [facility] [address] [id number] [address] [place] [address], [place] [address] Oct, [facility] [address] [id number] [address] [place] [address], [place] [address] Oct, [facility] [address] [id number] [address] [place] [address], [place] [address] Oct, [facility] [address] [id number] [address] [place] [address], [place] [address] Sep, [facility] [address] [id number] [address] [place] [address], [place] [address] Sep, [facility] [address] [id number] [address] [place] [address], [place] [address] Sep, [facility] [address] [id number] [address] [place] [address], [place] [address] Sep, [facility] [address] [id number] [address] [place] [address], [place] [address] Sep, [facility] [address] [id number] [address] [place] [address], [place] [address] Sep, [facility] [address] [id number] [address] [place] [address], [place] [address] Aug, [facility] [address] [id number] [address] [place] [address], [place] [address] Aug, [facility] [address] [id number] [address] [place] [address], [place] [address] Aug, [facility] [address] [id number] [address] [place] [address], [place] [address] Aug, [facility] [address] [id number] [address] [place] [address], [place] [address] Aug, [facility] [address] [id number] [address] [place] [address] Aug, [facility] [address] [id number] [address] [place] [address] Aug, [facility] [address] [id number] [address] [place] [id number] Aug, [facility] [address] [id number] [address] [place] [address], [place] [address] Aug, [facility] [address] [id number] [address] [place] [address], [place] [address] Aug, [facility] [address] [id number] [address] [place] [id number] 05 Jul, 2014 [facility] [address] [id number] [address] [place] [address] Jul, [facility] [address] [id number] [address] [place] [address], [place] [address] May, [facility] [address] [id number] [address] [place] [address], [place] [address] May, [facility] [address] [id number] [address] [place] [address], [place] [address] May, [facility] [address] [id number] [address] [place] [address], [place] [address] May, [facility] [address] [id number] [address] [place] [address], [place] [id number] May, [facility] [address] [id number] [address] [place] [address], [place] [address] May, [facility] [address] [id number] [address] [place] [address], [place] [id number] Apr, [facility] [address] [id number] [address] [place] [address], [place] [id number] Apr, [facility] [address] [id number] [address] [place] [address], [place] [id number] Apr, [facility] [address] [id number] [address] [place] [address], [place] [id number] Apr, [facility] [address] [id number] [address] [place] [address], [place] [id number] March, [facility] [address] [id number] [address] [place] [address], [place] [address] March, [facility] [address] [id number] [address] [place] [address], [place] [id number] Feb, [facility] [address] [id number] [address] [place] [address], [place] [id number] Feb, [facility] [address] [id number] [address] [place] [address], [place] [address] Jan, [facility] [address] [id number] [address] [place] [address], [place] [id number] Jan, [facility] [address] [id number] [address] [place] [address], [place] [id number] Nov, [facility] [address] [id number] [address] [place] [address], [place] [address] Nov, [facility] [address] [id number] [address] [place] [address], [place] [address] Nov, [facility] [address] [id number] [address] [place] [address], [place] [id number] Nov, [facility] [address] [id number] [address] [place] [address], [place] [id number] Nov, [facility] [address] [id number] [address] [place] [address], [place] [id number] Nov, [facility] [address] [id number] [address] [place] [address], [place] [id number] Oct, [facility] [address] [id number] [address] [place] [address], [place] [address] Oct, [facility] [address] [id number] [address] [place] [address], [place] [id number] Aug, [facility] [address] [id number] [address] [place] [address], [place] [id number] Aug, [facility] [address] [id number] [address] [place] [address], [place] [id number] Jul, [facility] [address] [id number] [address] [place] [address], [place] [id number] Jun, [facility] [address] [id number] [address] [place] [address], [place] [id number] Jun, [facility] [address] [id number] [address] [place] [address], [place] [id number] Jun, [facility] [address] [id number] [address] [place] [address] [id number] Jun, [facility] [address] [facility] [id number] [address] [place] [id number] Jun, [facility] [address] [facility] [id number] [address] [place] [id number] Jun, [facility] [address] [facility] [id number] [address] [place] [id number] May, [facility] [address] [facility] [id number] [address] [place] [id number] March, [facility] [address] [facility] [id number] [address] [place] [id number] March, [facility] [address] [facility] [id number] [address] [place] [id number] Jan, IMMUNIZATIONS No Known Immunizations SOCIAL HISTORY [...] cyst Hospitalization History surgery Hospitalization History [facility]- Right Leg Pain 09/21/2017 Hospitalization History [facility]- Severe Dehydr ation with Acute Renal Failure 05/06/2018 Hospitalization History Back surgery to remove cyst/ infecti on
--- OUTSIDE RECORDS SUMMARY | 2020-03-23 00:57 | XMS REPORT ---
Author Author Zoran OLIVER [facility] Organization [facility] Address [address] [place] [address] Care Team Providers Care Health Services Rn Name Role Phone ANTWON ETIENNEMARS Unavailable PROBLEMS Type Condition ICD9-CM Code YOS09-LD Code Onset Dates Condition S tatus SNOMED Code Problem Type 2 diabetes mellitus with other specified complication E11.69 Active 7398624 Problem Cervicalgia M54.2 Active 23631779 8424978 Problem HTN (hypertension) I10 Active 3 3739127 Problem Cervical stenosis of spine M48.02 Act cynthia 68571332 Problem Parkinsons disease G20 Active 4 9583604 Problem Hypercholesterolemia E78.0 Active 50782695 Problem Panic F41.0 Active 66732870 Problem Other chronic pain G89.29 Active 8 7961450 Problem Generalized anxiety disorder F41.1 A ctive 22352275 Problem Atherosclerotic heart diseas e of [place] coronary artery without angina pectoris I25.10 Active 276558974 Problem 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 Active 751609436 Problem Lumbar spondylosis M47.816 Active 2 45665939 Problem Cannabis abuse F12.10 Active 45004 009 Problem Recurrent major depressive disorder, in full remission F33.42 Active 089366201 ALLERGIES No Information ENCOUNTERS Encounter Location Date Diagnosis [address] [address] May, Parkinsons disease G20 ; Hypercholestero lemia E78.0 and HTN (hypertension) I10 [facility] [address] [facility] [id number] [address] [place] [phone] May, Tenosynovitis, cinthya Queriqra M 65.4 ; Type 2 diabetes mellitus with other specified complication E11.69 ; Lumbar spondylosis M47.816 and HTN (hypertension) I10 [facility] [address] [facility] [id number] [address] [place] [address] March, [facility] [address] [address] Jan, [facility] [address] [facility] [id number] [address] [place] [phone] Dec, Hypercholesterolemia E78.0 [facility] [address] [facility] [id number] [address] [place] [address] Nov, HTN (hypertension) I10 [facility] [address] [place] [id number] [address] [place] [phone] Oct, Generalized anxiety disorder F41.1 and Panic F41.0 [place] [address] [place] [id number] [place] [phone] Oct, Generalized anxiety disorder F41.1 and Panic F41.0 [place] [address] [place] [id number] [place] [address] Aug, Cervicalgia M54.2 [place] [address] [facility] [id number] [address] [place] [address] Aug, Type 2 diabetes mellitus wit h other specified complication E11.69 ; HTN (hypertension) I10 ; Parkinsons disease G20 ; Atherosclerotic heart disease of [place] coronary artery without angina pectoris I25.10 ; Hypercholesterolemia E78.0 and Cervical stenosis of spine M48.02 [place] [address] [place] [id number] [address] [place] [address] Aug, Type 2 diabetes mellitus wit h other specified complication E11.69 [facility] [address] [facility] [id number] [address] [place] [address] May, [facility] [address] [place] [id number] [address] [place] [address] Apr, [facility] [address] [facility] [id number] [address] [place] [address] Apr, Dehydration E86.0 ; Acute re nal failure, unspecified acute renal failure type N17.9 ; Cannabis abuse F12.10 ; Type 2 diabetes mellitus with other specified complication E11.69 ; HTN (hypertension) I10 ; Parkinsons disease G20 ; Hypercholesterolemia E78.0 ; Atherosclerotic heart disease of [place] coronary artery without angina pectoris I25.10 ; Cervicalgia M54.2 ; Need for hepatitis C screening test Z11.59 and Recurrent major depressive disorder, in full remission F33.42 [place] [address] [place] [id number] [address] [place] [phone] 18 Apr, 2018 [place] [address] [place] [id number] [place] [phone] 14 Apr, 2018 Dehydration E86.0 ; Hypotens ion, unspecified hypotension type I95.9 ; Fall, initial encounter W19.XXXA ; Acute head injury without loss of consciousness, initial encounter S09.90XA ; Type 2 diabetes mellitus with other specified complication E11.69 ; HTN (hypertension) I10 and Parkinsons disease G20 [place] [address] [place] [id number] [place] [phone] 14 Apr, 2018 [place] [address] [facility] [id number] [address] [place] [phone] 12 Apr, 2018 [place] [address] [place] [id number] [place] [phone] Feb, Cervicalgia M54.2 [place] [address] [place] [id number] [address] [place] [phone] Feb, Cervical stenosis of spine M 48.02 [place] [address] [facility] [id number] [address] [place] [phone] Jan, Cervicalgia M54.2 [place] [address] [facility] [id number] [address] [place] [phone] Jan, Acute right-sided low back p ain with right-sided sciatica M54.41 [place] [address] [facility] [id number] [address] [place] [phone] Dec, Cervicalgia M54.2 [place] [address] [facility] [id number] [address] [place] [address] Dec, Controlled substance agreeme nt signed Z79.899 [place] [address] [place] [id number] [address] [place] [address] Oct, Cervicalgia M54.2 [place] [address] [place] [id number] [address] [place] [phone] Oct, Acute right-sided low back p ain with right-sided sciatica M54.41 [place] [address] [place] [id number] [address] [place] [phone] Oct, [place] [id number] [place] [address] Sep, Cervicalgia M54.2 [place] [address] [place] [id number] [place] [address] 14 Sep, 2017 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 [place] [address] [place] [phone] 13 Sep, 2017 Lumbar back pain with radicu lopathy affecting right lower extremity M54.17 [place] [address] [place] [id number] [address] [place] [phone] 03 Sep, 2017 Acute right-sided low back p ain with right-sided sciatica M54.41 [place] [address] [place] [address] Aug, Type 2 diabetes mellitus wit h other specified complication E11.69 ; HTN (hypertension) I10 ; Cervicalgia M54.2 ; Cervical stenosis of spine M48.02 ; Acute right hip pain M25.551 ; Atherosclerotic heart disease of [place] coronary artery without angina pectoris I25.10 ; Hypercholesterolemia E78.0 ; Parkinsons disease G20 and Depression F32.9 [place] [address] [place] [id number] [address] [place] [address] Aug, Other chronic pain G89.29 [place] [address] [place] [id number] [address] [place] [address] Jul, Other chronic pain G89.29 [facility] [address] [id number] [address] [place] [address] Jul, [facility] [address] [id number] [address] [place] [phone] Jul, Cough R05 and Bronchitis J40 [facility] [address] [id number] [address] [place] [phone] Jun, Other chronic pain G89.29 [facility] [address] [id number] [address] [place] [phone] Jun, [facility] [address] [id number] [address] [place] [phone] Jun, Atherosclerotic heart diseas e of [place] coronary artery without angina pectoris I25.10 and Cervicalgia M54.2 [facility] [address] [id number] [address] [place] [address] Jun, Cervicalgia M54.2 [facility] [address] [id number] [address] [place] [address] May, Other chronic pain G89.29 [facility] [address] [id number] [address] [place] [phone] May, [facility] [address] [id number] [address] [place] [phone] May, [facility] [address] [id number] [address] [place] [phone] May, [facility] [address] [id number] [address] [place] [phone] May, [facility] [address] [facility] [id number] [address] [place] [address] May, Type 2 diabetes mellitus wit h other specified complication E11.69 ; HTN (hypertension) I10 ; Atherosclerotic heart disease of [place] coronary artery without angina pectoris I25.10 ; Parkinsons disease G20 and Cervical stenosis of spine M48.02 [facility] [address] [id number] [address] [place] [phone] Apr, Cervicalgia M54.2 [facility] [address] [facility] [id number] [address] [place] [address] Apr, Type 2 diabetes mellitus wit h other specified complication E11.69 ; HTN (hypertension) I10 ; Depression F32.9 ; Atherosclerotic heart disease of [place] coronary artery without angina pectoris I25.10 ; Coronary atherosclerosis due to lipid rich plaque I25.83 ; Cervicalgia M54.2 ; Parkinsons disease G20 ; Chronic diarrhea K52.9 and Pure hypercholesterolemia E78.00 [place] [address] [id number] [address] [place] [address] March, Other chronic pain G89.29 [place] [address] [facility] [id number] [address] [place] [phone] March, Other chronic pain G89.29 [place] [address] [facility] [id number] [address] [place] [phone] Feb, Cervical stenosis of spine M 48.02 [facility] [address] [facility] [id number] [address] [place] [phone] Feb, Other chronic pain G89.29 [place] [address] [facility] [id number] [address] [place] [phone] Jan, [place] [address] [facility] [id number] [address] [place] [phone] Jan, Other chronic pain G89.29 [facility] [address] [facility] [id number] [address] [place] [phone] Jan, Other chronic pain G89.29 [place] [address] [facility] [id number] [address] [place] [address] Jan, Type 2 diabetes mellitus wit h other specified complication E11.69 ; Atherosclerotic heart disease of [place] coronary artery without angina pectoris I25.10 ; Anxiety F41.9 ; HTN (hypertension) I10 ; Depression F32.9 ; Coronary atherosclerosis due to lipid rich plaque I25.83 ; Cervicalgia M54.2 ; Other chronic pain G89.29 and Functional 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 [facility] [address] [facility] [id number] [address] [place] [address] Nov, HTN (hypertension) I10 [place] [address] [place] [id number] [address] [place] [address] Nov, Type 2 diabetes mellitus wit h other specified complication E11.69 ; Atherosclerotic heart disease of [place] coronary artery without angina pectoris I25.10 ; Hypercholesterolemia E78.0 ; Anxiety F41.9 ; Depression F32.9 ; Cervicalgia M54.2 and Functional 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 [facility] [address] [place] [id number] [address] [place] [phone] Oct, [place] [address] [place] [id number] [address] [place] [phone] Oct, Neck pain M54.2 [facility] [address] [place] [id number] [address] [place] [phone] Sep, [facility] [address] [place] [id number] [address] [place] [phone] Aug, [facility] [address] [place] [id number] [address] [place] [phone] Aug, [facility] [address] [facility] [id number] [address] [place] [phone] Jul, Visit for TB skin test Z11.1 and Screening for tuberculosis Z11.1 [facility] [address] [facility] [id number] [address] [place] [address] May, [facility] [address] [place] [id number] [address] [place] [address] May, Neck pain M54.2 [facility] [address] [place] [id number] [address] [place] [address] May, [facility] [address] [place] [address] [address] Apr, Neck pain M54.2 [facility] [address] [address] Feb, Neck pain M54.2 [facility] [address] [address] Feb, [facility] [address] [address] Jan, Neck pain M54.2 [facility] [address] [address] Jan, [facility] [address] [address] Jan, Neck pain M54.2 [facility] [address] [address] Jan, Neck pain M54.2 ; Type 2 sarath betes mellitus with other specified complication E11.69 ; CAD (coronary artery disease) 414.00 ; Insomnia 780.52 ; Anxiety F41.9 ; Depression F32.9 ; Pre-ulcerative calluses L84 and Hypercholesterolemia E78.0 [place] [address] [address] Nov, [facility] [address] [address] Nov, Type 2 diabetes mellitus wit h other specified complication E11.69 ; Pre-ulcerative calluses L84 ; HTN (hypertension) I10 ; Hypercholesterolemia E78.0 ; Anxiety F41.9 ; Depression F32.9 ; Environmental allergies Z91.09 and Osteoarthritis M19.90 [facility] [address] [address] Sep, [facility] [address] [address] Aug, Allergic rhinitis, seasonal J30.2 [facility] [address] [place] [address] Jul, [facility] [address] [facility] [id number] [address] [place] [address] Jul, Other specified cardiac dysr hythmias 427.89 ; Essential hypertension, benign 401.1 ; Nondependent tobacco use disorder 305.1 ; Unspecified hereditary and idiopathic peripheral neuropathy 356.9 ; Diabetes mellitus without mention of complication, type II or unspecified type, not stated as uncontrolled 250.00 ; CAD (coronary artery disease) 414.00 ; Insomnia 780.52 and Depression 311 [facility] [address] [facility] [id number] [address] [place] [address] Jul, [facility] [address] [place] [id number] [place] [phone] Jul, [facility] [address] [place] [id number] [address] [place] [phone] May, [facility] [address] [place] [id number] [address] [place] [phone] May, [facility] [address] [place] [id number] [address] [place] [phone] May, [facility] [address] [place] [id number] [address] [place] [address] Apr, [facility] [address] [place] [id number] [address] [place] [address] Apr, Skin lesion of face 709.9 an d Anxiety 300.00 [facility] [address] [facility] [id number] [address] [place] [address] March, [facility] [address] [place] [id number] [address] [place] [address] Feb, [facility] [address] [place] [id number] [address] [place] [phone] Feb, [facility] [address] [place] [id number] [address] [place] [phone] Jan, [facility] [place] [facility] [address] [id number] [address] [place] [address], [place] [address] Jan, [facility] [address] [id number] [address] [place] [address], [place] [address] Jan, [facility] [place] [facility] [address] [id number] [address] [place] [address], [place] [address] Jan, [facility] [place] [facility] [address] [id number] [address] [place] [address], [place] [address] Jan, [facility] [address] [id number] [address] [place] [address], [place] [address] Jan, [facility] [address] [id number] [address] [place] [address], [place] [address] Dec, [facility] [address] [id number] [address] [place] [address], [place] [address] Dec, [facility] [address] [id number] [address] [place] [address], [place] [address] Nov, [facility] [address] [id number] [address] [place] [address], [place] [address] Nov, [facility] [address] [id number] [address] [place] [address], [place] [address] Oct, [facility] [address] [id number] [address] [place] [address], [place] [address] Oct, [facility] [place] [facility] [address] [id number] [address] [place] [address], [place] [address] Oct, [facility] [place] [facility] [address] [id number] [address] [place] [address], [place] [address] Oct, [facility] [place] [facility] [address] [id number] [address] [place] [address], [place] [address] Sep, [facility] [place] [facility] [address] [id number] [address] [place] [address], [place] [address] Sep, [facility] [place] [facility] [address] [id number] [address] [place] [address], [place] [address] Sep, [facility] [place] [facility] [address] [id number] [address] [place] [address], [place] [address] Sep, [facility] [place] [facility] [address] [id number] [address] [place] [address], [place] [address] Sep, [facility] [place] [facility] [address] [id number] [address] [place] [address], [place] [address] Sep, [facility] [place] [facility] [address] [id number] [address] [place] [address], [place] [address] Aug, [facility] [place] [facility] [address] [id number] [address] [place] [address], [place] [address] Aug, [facility] [place] [facility] [address] [id number] [address] [place] [address], [place] [address] Aug, [facility] [place] [facility] [address] [id number] [address] [place] [address], [place] [address] Aug, [facility] [place] [facility] [address] [id number] [address] [place] [address], [place] [address] Aug, [facility] [place] [facility] [address] [id number] [address] [place] [address], [place] [address] Aug, [facility] [place] [facility] [address] [id number] [address] [place] [address], [place] [address] Aug, [facility] [place] [facility] [address] [id number] [address] [place] [address], [place] [address] Aug, [facility] [place] [facility] [address] [id number] [address] [place] [address] Aug, [facility] [place] [facility] [address] [id number] [address] [place] [address], [place] [address] Aug, [facility] [address] [id number] [address] [place] [address], [place] [address] Jul, [facility] [address] [id number] [address] [place] [address], [place] [address] 05 Jul, 2014 [facility] [address] [id number] [facility] [place] [address] May, [facility] [address] [id number] [address] [place] [address], [place] [address] May, [facility] [address] [id number] [address] [place] [address], [place] [address] May, [facility] [address] [id number] [address] [place] [address], [place] [address] May, [facility] [address] [id number] [address] [place] [address], [place] [address] May, [facility] [address] [id number] [address] [place] [address], [place] [address] May, [facility] [address] [id number] [address] [place] [address], [place] [address] Apr, [facility] [address] [id number] [address] [place] [address], [place] [address] Apr, [facility] [address] [id number] [address] [place] [address], [place] [address] Apr, [facility] [address] [id number] [address] [place] [address], [place] [address] Apr, [facility] [address] [id number] [address] [place] [address], [place] [address] March, [facility] [address] [id number] [address] [place] [address], [place] [address] March, [facility] [address] [id number] [address] [place] [address], [place] [address] Feb, [facility] [address] [id number] [address] [place] [address], [place] [address] Feb, [facility] [address] [id number] [address] [place] [address], [place] [address] Jan, [facility] [address] [id number] [address] [place] [address], [place] [address] Jan, [facility] [address] [id number] [address] [place] [address], [place] [address] Nov, [facility] [address] [id number] [address] [place] [address], [place] [address] Nov, [facility] [address] [id number] [address] [place] [address], [place] [address] Nov, [facility] [address] [id number] [address] [place] [address], [place] [address] Nov, [facility] [address] [id number] [address] [place] [address], [place] [address] Nov, [facility] [address] [id number] [address] [place] [address], [place] [address] Nov, [facility] [address] [id number] [address] [place] [address], [place] [address] Oct, [facility] [address] [id number] [address] [place] [address], [place] [address] Oct, [facility] [address] [id number] [address] [place] [address], [place] [address] Aug, [facility] [address] [id number] [address] [place] [address], [place] [address] Aug, [facility] [address] [id number] [address] [place] [address], [place] [address] Jul, [facility] [address] [id number] [address] [place] [address], [place] [address] Jun, [facility] [address] [id number] [address] [place] [address], [place] [address] Jun, [facility] [address] [id number] [address] [place] [address], [place] [address] Jun, [facility] [address] [id number] [address] [place] [address], [place] [address] Jun, [facility] [address] [id number] [address] [place] [id number] Jun, [facility] [address] [facility] [id number] [address] [place] [id number] Jun, [facility] [address] [facility] [id number] [address] [place] [id number] May, [facility] [address] [facility] [id number] [address] [place] [id number] March, [facility] [address] [facility] [id number] [address] [place] [id number] March, [facility] [address] [facility] [id number] [address] [place] [id number] Jan, IMMUNIZATIONS No Known Immunizations SOCIAL HISTORY Never Assessed REASON FOR VISIT PLAN OF CARE VITAL SIGNS Height 66 in 2014-09-03 Weight 192.6 lbs 2014-09-03 Temperature 97.2 degrees Fahrenheit 2014-09-03 Heart Rate 68 bpm 2014-09-03 Respiratory Rate 18 2014-09-03 Blood pressure systolic 110 mmHg 2014-09-03 Blood pressure diastolic 64 mmHg 2014-09-03 MEDICATIONS Unknown Medications RESULTS No Results PROCEDURES Procedure Date Ordered Result Body Site GLYCATED HEMOGLOBIN TEST Sep 03, 2014 INSTRUCTIONS MEDICATIONS ADMINISTERED No Known Medications [...] cyst Hospitalization History surgery Hospitalization History [facility]- Right Leg Pain 09/21/2017 Hospitalization History [facility]- Severe Dehydr ation with Acute Renal Failure 05/06/2018 Hospitalization History Back surgery to remove cyst/ infecti on
--- OUTSIDE RECORDS SUMMARY | 2020-03-23 00:57 | XMS REPORT ---
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 Helper Name Role Phone Migration, Doctor Unavailable Unavailable PROBLEMS Type Condition ICD9-CM Code PFF32-VW Code Onset Dates Condition S tatus SNOMED Code Problem HTN (hypertension) I10 Active 3 4669147 Problem Type 2 diabetes mellitus with other specified complication E11.69 Active 3813156 Problem Atherosclerotic heart diseas e of [place] coronary artery without angina pectoris I25.10 Active 773106408 Problem Cervicalgia M54.2 Active 15079202 5004571 Problem Parkinsons disease G20 Active 4 8770132 Problem Hypercholesterolemia E78.0 Active 74152623 Problem 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 Active 739791859 Problem Panic F41.0 Active 94493112 Problem Cervical stenosis of spine M48.02 Act cynthia 30166484 Problem Carpal tunnel syndrome, right G56.01 Active [id number] Problem Other chronic pain G89.29 Active 8 8424677 Problem Lumbar spondylosis M47.816 Active 2 42419530 Problem Recurrent major depressive disorder, in full remission F33.42 Active 802538723 Problem Cannabis abuse F12.10 Active 34546 009 Problem Generalized anxiety disorder F41.1 A ctive [id number] ALLERGIES No Information ENCOUNTERS Encounter Location Date Diagnosis [facility] [address] [facility] [id number] [address] [place] [address] Jun, Carpal tunnel syndrome, righ t G56.[address] [address] May, Parkinsons disease G20 ; Hypercholestero lemia E78.0 and HTN (hypertension) I10 [facility] [address] [facility] [id number] [address] [place] [address] May, Tenosynovitis, de Quervain M 65.4 ; Type 2 diabetes mellitus with other specified complication E11.69 ; Lumbar spondylosis M47.816 and HTN (hypertension) I10 [facility] [address] [facility] [id number] [address] [place] [address] March, [facility] [address] [address] Jan, [facility] [address] [facility] [id number] [address] [place] [address] Dec, Hypercholesterolemia E78.0 [facility] [address] [facility] [id number] [address] [place] [address] Nov, HTN (hypertension) I10 [facility] [address] [facility] [id number] [address] [place] [address] Oct, Generalized anxiety disorder F41.1 and Panic F41.0 [facility] [address] [facility] [id number] [address] [place] [address] Oct, Generalized anxiety disorder F41.1 and Panic F41.0 [facility] [address] [facility] [id number] [address] [place] [address] Aug, Cervicalgia M54.2 [facility] [address] [place] [id number] [place] [address] Aug, Type 2 diabetes mellitus wit h other specified complication E11.69 ; HTN (hypertension) I10 ; Parkinsons disease G20 ; Atherosclerotic heart disease of [place] coronary artery without angina pectoris I25.10 ; Hypercholesterolemia E78.0 and Cervical stenosis of spine M48.02 [facility] [address] [facility] [id number] [address] [place] [address] Aug, Type 2 diabetes mellitus wit h other specified complication E11.69 [facility] [address] [facility] [id number] [address] [place] [address] May, [facility] [address] [place] [id number] [address] [place] [address] Apr, [facility] [address] [facility] [id number] [address] [place] [address] Apr, Dehydration E86.0 ; Acute re nal failure, unspecified acute renal failure type N17.9 ; Cannabis abuse F12.10 ; Type 2 diabetes mellitus with other specified complication E11.69 ; HTN (hypertension) I10 ; Parkinsons disease G20 ; Hypercholesterolemia E78.0 ; Atherosclerotic heart disease of [place] coronary artery without angina pectoris I25.10 ; Cervicalgia M54.2 ; Need for hepatitis C screening test Z11.59 and Recurrent major depressive disorder, in full remission F33.42 [place] [address] [place] [id number] [place] [address] 18 Apr, 2018 [place] [address] [place] [id number] [place] [address] 14 Apr, 2018 Dehydration E86.0 ; Hypotens ion, unspecified hypotension type I95.9 ; Fall, initial encounter W19.XXXA ; Acute head injury without loss of consciousness, initial encounter S09.90XA ; Type 2 diabetes mellitus with other specified complication E11.69 ; HTN (hypertension) I10 and Parkinsons disease G20 [place] [address] [address] 14 Apr, 2018 [place] [address] [place] [id number] [address] [place] [address] 12 Apr, 2018 [place] [address] [place] [id number] [address] [place] [address] Feb, Cervicalgia M54.2 [place] [address] [place] [id number] [address] [place] [address] Feb, Cervical stenosis of spine M 48.02 [place] [address] [place] [id number] [address] [place] [address] Jan, Cervicalgia M54.2 [place] [address] [place] [id number] [address] [place] [address] Jan, Acute right-sided low back p ain with right-sided sciatica M54.41 [place] [address] [place] [id number] [address] [place] [address] Dec, Cervicalgia M54.2 [facility] [address] [facility] [id number] [address] [place] [address] Dec, Controlled substance agreeme nt signed Z79.899 [facility] [address] [id number] [address] [place] [address] Oct, Cervicalgia M54.2 [place] [address] [facility] [id number] [address] [place] [address] Oct, Acute right-sided low back p ain with right-sided sciatica M54.41 [place] [address] [facility] [id number] [address] [place] [address] Oct, [place] [address] [facility] [id number] [address] [place] [address] Sep, Cervicalgia M54.2 [place] [address] [facility] [id number] [address] [place] [address] 14 Sep, 2017 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 [place] [address] [facility] [id number] [address] [place] [address] 13 Sep, 2017 Lumbar back pain with radicu lopathy affecting right lower extremity M54.17 [place] [address] [facility] [id number] [address] [place] [address] 03 Sep, 2017 Acute right-sided low back p ain with right-sided sciatica M54.41 [place] [address] [facility] [id number] [address] [place] [address] 30 Aug, 2017 Type 2 diabetes mellitus wit h other specified complication E11.69 ; HTN (hypertension) I10 ; Cervicalgia M54.2 ; Cervical stenosis of spine M48.02 ; Acute right hip pain M25.551 ; Atherosclerotic heart disease of [place] coronary artery without angina pectoris I25.10 ; Hypercholesterolemia E78.0 ; Parkinsons disease G20 and Depression F32.9 [place] [id number] [facility] [id number] [address] [place] [address] Aug, Other chronic pain G89.29 [facility] [address] [id number] [address] [place] [address] 27 Jul, 2017 Other chronic pain G89.29 [facility] [address] [id number] [address] [place] [address] 21 Jul, 2017 [facility] [address] [id number] [address] [place] [address] 19 Jul, 2017 Cough R05 and Bronchitis J40 [facility] [address] [id number] [address] [place] [address] 30 Jun, 2017 Other chronic pain G89.29 [facility] [address] [id number] [address] [place] [address] Jun, [facility] [address] [id number] [address] [place] [phone] Jun, Atherosclerotic heart diseas e of [place] coronary artery without angina pectoris I25.10 and Cervicalgia M54.2 [facility] [address] [id number] [address] [place] [address] Jun, Cervicalgia M54.2 [facility] [address] [id number] [address] [place] [address] May, Other chronic pain G89.29 [facility] [address] [id number] [address] [place] [address] May, [facility] [address] [id number] [address] [place] [address] May, [facility] [address] [id number] [address] [place] [address] May, [facility] [address] [id number] [address] [place] [address] May, [facility] [address] [facility] [id number] [address] [place] [address] May, Type 2 diabetes mellitus wit h other specified complication E11.69 ; HTN (hypertension) I10 ; Atherosclerotic heart disease of [place] coronary artery without angina pectoris I25.10 ; Parkinsons disease G20 and Cervical stenosis of spine M48.02 [facility] [address] [id number] [address] [place] [address] Apr, Cervicalgia M54.2 [facility] [address] [id number] [address] [place] [phone] Apr, Type 2 diabetes mellitus wit h other specified complication E11.69 ; HTN (hypertension) I10 ; Depression F32.9 ; Atherosclerotic heart disease of [place] coronary artery without angina pectoris I25.10 ; Coronary atherosclerosis due to lipid rich plaque I25.83 ; Cervicalgia M54.2 ; Parkinsons disease G20 ; Chronic diarrhea K52.9 and Pure hypercholesterolemia E78.00 [place] [address] [id number] [address] [place] [address] March, Other chronic pain G89.29 [place] [address] [id number] [address] [place] [address] March, Other chronic pain G89.29 [place] [address] [id number] [address] [place] [address] Feb, Cervical stenosis of spine M 48.02 [facility] [address] [id number] [address] [place] [address] Feb, Other chronic pain G89.29 [place] [address] [id number] [address] [place] [phone] Jan, [place] [address] [id number] [address] [place] [address] Jan, Other chronic pain G89.29 [place] [address] [id number] [address] [place] [address] Jan, Other chronic pain G89.29 [place] [address] [id number] [address] [place] [address] Jan, Type 2 diabetes mellitus wit h other specified complication E11.69 ; Atherosclerotic heart disease of [place] coronary artery without angina pectoris I25.10 ; Anxiety F41.9 ; HTN (hypertension) I10 ; Depression F32.9 ; Coronary atherosclerosis due to lipid rich plaque I25.83 ; Cervicalgia M54.2 ; Other chronic pain G89.29 and Functional 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 [facility] [address] [facility] [id number] [address] [place] [phone] 10 Nov, 2016 HTN (hypertension) I10 [facility] [address] [facility] [id number] [address] [place] [address] 03 Nov, 2016 Type 2 diabetes mellitus wit h other specified complication E11.69 ; Atherosclerotic heart disease of [place] coronary artery without angina pectoris I25.10 ; Hypercholesterolemia E78.0 ; Anxiety F41.9 ; Depression F32.9 ; Cervicalgia M54.2 and Functional 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 [facility] [address] [place] [id number] [address] [place] [phone] Oct, [place] [address] [facility] [id number] [address] [place] [address] Oct, Neck pain M54.2 [facility] [address] [place] [id number] [address] [place] [phone] Sep, [facility] [address] [place] [id number] [address] [place] [address] Aug, [facility] [address] [facility] [id number] [address] [place] [address] Aug, [facility] [address] [facility] [id number] [address] [place] [address] Jul, Visit for TB skin test Z11.1 and Screening for tuberculosis Z11.1 [facility] [address] [facility] [id number] [address] [place] [phone] May, [facility] [address] [facility] [id number] [address] [place] [address] May, Neck pain M54.2 [facility] [address] [facility] [id number] [address] [place] [phone] May, [facility] [address] [address] Apr, Neck pain M54.2 [facility] [address] [address] Feb, Neck pain M54.2 [facility] [address] [address] Feb, [facility] [address] [address] Jan, Neck pain M54.2 [facility] [address] [address] Jan, [facility] [address] [address] Jan, Neck pain M54.2 [facility] [address] [address] Jan, Neck pain M54.2 ; Type 2 sarath betes mellitus with other specified complication E11.69 ; CAD (coronary artery disease) 414.00 ; Insomnia 780.52 ; Anxiety F41.9 ; Depression F32.9 ; Pre-ulcerative calluses L84 and Hypercholesterolemia E78.0 [place] [address] [address] Nov, [facility] [address] [address] Nov, Type 2 diabetes mellitus wit h other specified complication E11.69 ; Pre-ulcerative calluses L84 ; HTN (hypertension) I10 ; Hypercholesterolemia E78.0 ; Anxiety F41.9 ; Depression F32.9 ; Environmental allergies Z91.09 and Osteoarthritis M19.90 [facility] [address] [address] Sep, [facility] [address] [address] Aug, Allergic rhinitis, seasonal J30.2 [facility] [address] [place] [id number] [address] [place] [address] Jul, [facility] [address] [place] [id number] [place] [address] Jul, Other specified cardiac dysr hythmias 427.89 ; Essential hypertension, benign 401.1 ; Nondependent tobacco use disorder 305.1 ; Unspecified hereditary and idiopathic peripheral neuropathy 356.9 ; Diabetes mellitus without mention of complication, type II or unspecified type, not stated as uncontrolled 250.00 ; CAD (coronary artery disease) 414.00 ; Insomnia 780.52 and Depression 311 [facility] [address] [address] Jul, [facility] [address] [place] [id number] [place] [address] Jul, [facility] [address] [address] May, [facility] [address] [place] [id number] [address] [place] [address] May, [facility] [address] [address] May, [facility] [address] [place] [id number] [address] [place] [address] Apr, [facility] [address] [address] Apr, Skin lesion of face 709.9 an d Anxiety 300.00 [facility] [address] [place] [id number] [address] [place] [address] March, [facility] [address] [address] Feb, [facility] [address] [place] [id number] [address] [place] [address] Feb, [facility] [address] [id number] [address] [place] [address], [place] [address] Jan, [facility] [address] [id number] [address] [place] [address], [place] [address] Jan, [facility] [address] [id number] [address] [place] [address], [place] [address] Jan, [facility] [address] [id number] [address] [place] [address], [place] [address] Jan, [facility] [address] [id number] [address] [place] [address], [place] [address] Jan, [facility] [address] [id number] [address] [place] [address], [place] [address] Jan, [facility] [address] [id number] [address] [place] [address], [place] [address] Dec, [facility] [address] [id number] [address] [place] [address], [place] [address] Dec, [facility] [address] [id number] [address] [place] [address], [place] [address] Nov, [facility] [address] [id number] [address] [place] [address], [place] [address] Nov, [facility] [address] [id number] [address] [place] [address], [place] [address] Oct, [facility] [address] [id number] [address] [place] [address], [place] [address] Oct, [facility] [address] [id number] [address] [place] [address], [place] [address] Oct, [facility] [address] [id number] [address] [place] [address], [place] [address] Oct, [facility] [address] [id number] [address] [place] [address], [place] [address] Sep, [facility] [address] [id number] [address] [place] [address], [place] [address] Sep, [facility] [address] [id number] [address] [place] [address], [place] [address] Sep, [facility] [address] [id number] [address] [place] [address], [place] [address] Sep, [facility] [address] [id number] [address] [place] [address], [place] [address] Sep, [facility] [address] [id number] [address] [place] [address], [place] [address] Sep, [facility] [address] [id number] [address] [place] [address], [place] [address] Aug, [facility] [address] [id number] [address] [place] [address], [place] [address] Aug, [facility] [address] [id number] [address] [place] [address], [place] [address] Aug, [facility] [address] [id number] [address] [place] [address], [place] [address] Aug, [facility] [address] [id number] [address] [place] [address], [place] [address] Aug, [facility] [address] [id number] [address] [place] [address] Aug, [facility] [address] [id number] [address] [place] [address] Aug, [facility] [address] [id number] [address] [place] [address] Aug, [facility] [address] [id number] [address] [place] [address], [place] [address] Aug, [facility] [address] [id number] [address] [place] [address], [place] [address] Aug, [facility] [address] [id number] [address] [place] [address] 05 Jul, 2014 [facility] [address] [id number] [address] [place] [address] Jul, [facility] [address] [id number] [address] [place] [address], [place] [address] May, [facility] [address] [id number] [address] [place] [address], [place] [address] May, [facility] [address] [id number] [address] [place] [address], [place] [address] May, [facility] [address] [id number] [address] [place] [address], [place] [address] May, [facility] [address] [id number] [address] [place] [address], [place] [address] May, [facility] [address] [id number] [address] [place] [address], [place] [address] May, [facility] [address] [id number] [address] [place] [address], [place] [address] Apr, [facility] [address] [id number] [address] [place] [address], [place] [address] Apr, [facility] [address] [id number] [address] [place] [address], [place] [address] Apr, [facility] [address] [id number] [address] [place] [address], [place] [address] Apr, [facility] [address] [id number] [address] [place] [address], [place] [address] March, [facility] [address] [id number] [address] [place] [address], [place] [address] March, [facility] [address] [id number] [address] [place] [address], [place] [address] Feb, [facility] [address] [id number] [address] [place] [address], [place] [address] Feb, [facility] [address] [id number] [address] [place] [address], [place] [address] Jan, [facility] [address] [id number] [address] [place] [address], [place] [address] Jan, [facility] [address] [id number] [address] [place] [address], [place] [address] Nov, [facility] [address] [id number] [address] [place] [address], [place] [address] Nov, [facility] [address] [id number] [address] [place] [address], [place] [address] Nov, [facility] [address] [id number] [address] [place] [address], [place] [address] Nov, [facility] [address] [id number] [address] [place] [address], [place] [address] Nov, [facility] [address] [id number] [address] [place] [address], [place] [address] Nov, [facility] [address] [id number] [address] [place] [address], [place] [address] Oct, [facility] [address] [id number] [address] [place] [address], [place] [address] Oct, [facility] [address] [id number] [address] [place] [address], [place] [address] Aug, [facility] [address] [id number] [address] [place] [address], [place] [address] Aug, [facility] [address] [id number] [address] [place] [address], [place] [address] Jul, [facility] [address] [id number] [address] [place] [address], [place] [address] Jun, [facility] [address] [id number] [address] [place] [address], [place] [address] Jun, [facility] [address] [id number] [address] [place] [address], [place] [address] Jun, [facility] [address] [id number] [address] [place] [address] [address] Jun, [facility] [address] [facility] [id number] [address] [place] [address] Jun, [facility] [address] [facility] [id number] [address] [place] [address] Jun, [facility] [address] [facility] [id number] [address] [place] [id number] May, [facility] [address] [facility] [id number] [address] [place] [id number] March, [facility] [address] [facility] [id number] [place] [id number] March, [facility] [address] [facility] [id number] [place] [id number] Jan, IMMUNIZATIONS No Known Immunizations SOCIAL HISTORY [...] Hospitalization History Via [facility]- Right Leg Pain 09/21/2017 Hospitalization History [facility]- Severe Dehydr ation with Acute Renal Failure 05/06/2018 Hospitalization History Back surgery to remove cyst/ infecti on
--- OUTSIDE RECORDS SUMMARY | 2020-03-23 00:58 | XMS REPORT ---
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 Role Phone ANTWON [employer]TIENN[employer]ARS Unavailable PROBLEMS Type Condition ICD9-CM Code HJY50-LO Code Onset Dates Condition S tatus SNOMED Code Problem Type 2 diabetes mellitus with other specified complication E11.69 Active 5192331 Problem Cervicalgia M54.2 Active 81667745 6586090 Problem HTN (hypertension) I10 Active 3 5740269 Problem Cervical stenosis of spine M48.02 Act cynthia 92485446 Problem Parkinsons disease G20 Active 4 4924878 Problem Hypercholesterolemia E78.0 Active 33000752 Problem Panic F41.0 Active 12804730 Problem Other chronic pain G89.29 Active 8 4132580 Problem Generalized anxiety disorder F41.1 A ctive 08344635 Problem Atherosclerotic heart diseas e of [place] coronary artery without angina pectoris I25.10 Active 558770641 Problem 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 Active 715733904 Problem Lumbar spondylosis M47.816 Active 2 80576108 Problem Cannabis abuse F12.10 Active 45206 009 Problem Recurrent major depressive disorder, in full remission F33.42 Active 260223865 ALLERGIES No Information ENCOUNTERS Encounter Location Date Diagnosis [facility] [address] [facility] [id number] [address] [place] [address] Jun, [address] [address] May, Parkinsons disease G20 ; Hypercholestero lemia E78.0 and HTN (hypertension) I10 [facility] [address] [facility] [id number] [address] [place] [address] May, Tenosynovitis, de Queriqra M 65.4 ; Type 2 diabetes mellitus with other specified complication E11.69 ; Lumbar spondylosis M47.816 and HTN (hypertension) I10 [facility] [address] [facility] [id number] [address] [place] [address] March, [facility] [address] [address] Jan, [facility] [address] [facility] [id number] [address] [place] [address] Dec, Hypercholesterolemia E78.0 [facility] [address] [facility] [id number] [address] [place] [address] Nov, HTN (hypertension) I10 [place] [address] [facility] [id number] [address] [place] [address] Oct, Generalized anxiety disorder F41.1 and Panic F41.0 [place] [address] [place] [id number] [address] [place] [address] Oct, Generalized anxiety disorder F41.1 and Panic F41.0 [facility] [address] [facility] [id number] [address] [place] [address] Aug, Cervicalgia M54.2 [facility] [address] [place] [id number] [address] [place] [address] Aug, Type 2 diabetes mellitus wit h other specified complication E11.69 ; HTN (hypertension) I10 ; Parkinsons disease G20 ; Atherosclerotic heart disease of [place] coronary artery without angina pectoris I25.10 ; Hypercholesterolemia E78.0 and Cervical stenosis of spine M48.02 [facility] [address] [facility] [id number] [address] [place] [address] Aug, Type 2 diabetes mellitus wit h other specified complication E11.69 [facility] [address] [facility] [id number] [address] [place] [address] May, [facility] [address] [facility] [id number] [address] [place] [address] Apr, [facility] [address] [facility] [id number] [address] [place] [phone] 22 Apr, 2018 Dehydration E86.0 ; Acute re nal failure, unspecified acute renal failure type N17.9 ; Cannabis abuse F12.10 ; Type 2 diabetes mellitus with other specified complication E11.69 ; HTN (hypertension) I10 ; Parkinsons disease G20 ; Hypercholesterolemia E78.0 ; Atherosclerotic heart disease of [place] coronary artery without angina pectoris I25.10 ; Cervicalgia M54.2 ; Need for hepatitis C screening test Z11.59 and Recurrent major depressive disorder, in full remission F33.42 [place] [address] [place] [id number] [place] [address] 18 Apr, 2018 [place] [address] [place] [id number] [place] [address] 14 Apr, 2018 Dehydration E86.0 ; Hypotens ion, unspecified hypotension type I95.9 ; Fall, initial encounter W19.XXXA ; Acute head injury without loss of consciousness, initial encounter S09.90XA ; Type 2 diabetes mellitus with other specified complication E11.69 ; HTN (hypertension) I10 and Parkinsons disease G20 [place] [address] [place] [id number] [address] [place] [id number] 14 Apr, 2018 [place] [address] [place] [id number] [place] [address] Apr, [place] [address] [facility] [id number] [address] [place] [address] Feb, Cervicalgia M54.2 [place] [address] [facility] [id number] [address] [place] [address] Feb, Cervical stenosis of spine M 48.02 [place] [address] [facility] [id number] [address] [place] [address] Jan, Cervicalgia M54.2 [place] [address] [place] [id number] [address] [place] [phone] Jan, Acute right-sided low back p ain with right-sided sciatica M54.41 [place] [address] [place] [id number] [address] [place] [address] Dec, Cervicalgia M54.2 [place] [address] [facility] [id number] [address] [place] [address] Dec, Controlled substance agreeme nt signed Z79.899 [place] [address] [facility] [id number] [address] [place] [address] Oct, Cervicalgia M54.2 [place] [address] [facility] [id number] [address] [place] [address] Oct, Acute right-sided low back p ain with right-sided sciatica M54.41 [place] [address] [facility] [id number] [address] [place] [address] Oct, [place] [address] [facility] [id number] [address] [place] [address] Sep, Cervicalgia M54.2 [place] [address] [facility] [id number] [address] [place] [address] 14 Sep, 2017 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 [place] [address] [facility] [id number] [address] [place] [address] 13 Sep, 2017 Lumbar back pain with radicu lopathy affecting right lower extremity M54.17 [place] [address] [facility] [id number] [address] [place] [address] Sep, Acute right-sided low back p ain with right-sided sciatica M54.41 [place] [address] [facility] [id number] [address] [place] [address] 30 Aug, 2017 Type 2 diabetes mellitus wit h other specified complication E11.69 ; HTN (hypertension) I10 ; Cervicalgia M54.2 ; Cervical stenosis of spine M48.02 ; Acute right hip pain M25.551 ; Atherosclerotic heart disease of [place] coronary artery without angina pectoris I25.10 ; Hypercholesterolemia E78.0 ; Parkinsons disease G20 and Depression F32.9 [place] [address] [facility] [id number] [address] [place] [address] Aug, Other chronic pain G89.29 [facility] [address] [id number] [address] [place] [address] Jul, Other chronic pain G89.29 [facility] [address] [id number] [address] [place] [address] 21 Jul, 2017 [facility] [address] [id number] [address] [place] [phone] 19 Jul, 2017 Cough R05 and Bronchitis J40 [facility] [address] [id number] [address] [place] [address] 30 Jun, 2017 Other chronic pain G89.29 [facility] [address] [id number] [address] [place] [address] Jun, [facility] [address] [id number] [address] [place] [address] Jun, Atherosclerotic heart diseas e of [place] coronary artery without angina pectoris I25.10 and Cervicalgia M54.2 [facility] [address] [id number] [address] [place] [address] Jun, Cervicalgia M54.2 [facility] [address] [id number] [address] [place] [address] May, Other chronic pain G89.29 [facility] [address] [id number] [address] [place] [address] May, [facility] [address] [id number] [address] [place] [address] May, [facility] [address] [id number] [address] [place] [address] May, [facility] [address] [id number] [address] [place] [address] May, [facility] [address] [facility] [id number] [address] [place] [address] May, Type 2 diabetes mellitus wit h other specified complication E11.69 ; HTN (hypertension) I10 ; Atherosclerotic heart disease of [place] coronary artery without angina pectoris I25.10 ; Parkinsons disease G20 and Cervical stenosis of spine M48.02 [facility] [address] [id number] [address] [place] [address] Apr, Cervicalgia M54.2 [facility] [address] [id number] [address] [place] [address] Apr, Type 2 diabetes mellitus wit h other specified complication E11.69 ; HTN (hypertension) I10 ; Depression F32.9 ; Atherosclerotic heart disease of [place] coronary artery without angina pectoris I25.10 ; Coronary atherosclerosis due to lipid rich plaque I25.83 ; Cervicalgia M54.2 ; Parkinsons disease G20 ; Chronic diarrhea K52.9 and Pure hypercholesterolemia E78.00 [place] [address] [id number] [address] [place] [address] March, Other chronic pain G89.29 [place] [address] [id number] [address] [place] [address] March, Other chronic pain G89.29 [place] [address] [id number] [address] [place] [address] Feb, Cervical stenosis of spine M 48.02 [facility] [address] [id number] [address] [place] [address] Feb, Other chronic pain G89.29 [facility] [address] [id number] [address] [place] [address] Jan, [place] [address] [id number] [address] [place] [address] Jan, Other chronic pain G89.29 [facility] [address] [id number] [address] [place] [address] Jan, Other chronic pain G89.29 [facility] [address] [id number] [address] [place] [address] Jan, Type 2 diabetes mellitus wit h other specified complication E11.69 ; Atherosclerotic heart disease of [place] coronary artery without angina pectoris I25.10 ; Anxiety F41.9 ; HTN (hypertension) I10 ; Depression F32.9 ; Coronary atherosclerosis due to lipid rich plaque I25.83 ; Cervicalgia M54.2 ; Other chronic pain G89.29 and Functional 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 [facility] [address] [facility] [id number] [address] [place] [address] Nov, HTN (hypertension) I10 [facility] [address] [facility] [id number] [address] [place] [address] Nov, Type 2 diabetes mellitus wit h other specified complication E11.69 ; Atherosclerotic heart disease of [place] coronary artery without angina pectoris I25.10 ; Hypercholesterolemia E78.0 ; Anxiety F41.9 ; Depression F32.9 ; Cervicalgia M54.2 and Functional 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 [facility] [address] [place] [id number] [address] [place] [address] Oct, [facility] [address] [place] [id number] [address] [place] [address] Oct, Neck pain M54.2 [facility] [address] [place] [id number] [address] [place] [address] Sep, [facility] [address] [place] [id number] [address] [place] [address] Aug, [facility] [address] [place] [id number] [address] [place] [address] Aug, [facility] [address] [facility] [id number] [address] [place] [address] Jul, Visit for TB skin test Z11.1 and Screening for tuberculosis Z11.1 [facility] [address] [place] [id number] [address] [place] [address] May, [facility] [address] [facility] [id number] [address] [place] [address] May, Neck pain M54.2 [facility] [address] [facility] [id number] [place] [address] May, [facility] [address] [phone] Apr, Neck pain M54.2 [facility] [address] [place] [id number] [place] [address] Feb, Neck pain M54.2 [facility] [address] [address] Feb, [facility] [address] [place] [id number] [place] [address] Jan, Neck pain M54.2 [facility] [address] [address] Jan, [facility] [address] [address] Jan, Neck pain M54.2 [facility] [address] [address] Jan, Neck pain M54.2 ; Type 2 sarath betes mellitus with other specified complication E11.69 ; CAD (coronary artery disease) 414.00 ; Insomnia 780.52 ; Anxiety F41.9 ; Depression F32.9 ; Pre-ulcerative calluses L84 and Hypercholesterolemia E78.0 [place] [address] [address] Nov, [facility] [address] [address] Nov, Type 2 diabetes mellitus wit h other specified complication E11.69 ; Pre-ulcerative calluses L84 ; HTN (hypertension) I10 ; Hypercholesterolemia E78.0 ; Anxiety F41.9 ; Depression F32.9 ; Environmental allergies Z91.09 and Osteoarthritis M19.90 [facility] [address] [address] Sep, [facility] [address] [address] Aug, Allergic rhinitis, seasonal J30.2 [facility] [address] [facility] [id number] [address] [place] [address] Jul, [facility] [address] [place] [id number] [address] [place] [address] Jul, Other specified cardiac dysr hythmias 427.89 ; Essential hypertension, benign 401.1 ; Nondependent tobacco use disorder 305.1 ; Unspecified hereditary and idiopathic peripheral neuropathy 356.9 ; Diabetes mellitus without mention of complication, type II or unspecified type, not stated as uncontrolled 250.00 ; CAD (coronary artery disease) 414.00 ; Insomnia 780.52 and Depression 311 [facility] [address] [place] [id number] [address] [place] [address] Jul, [facility] [address] [address] Jul, [facility] [address] [place] [id number] [address] [place] [address] May, [facility] [address] [place] [id number] [address] [place] [address] May, [facility] [address] [address] May, [facility] [address] [place] [id number] [address] [place] [address] Apr, [facility] [address] [address] Apr, Skin lesion of face 709.9 an d Anxiety 300.00 [facility] [address] [place] [id number] [address] [place] [address] March, [facility] [address] [place] [id number] [address] [place] [address] Feb, [facility] [address] [place] [id number] [address] [place] [address] Feb, [facility] [address] [id number] [address] [place] [address], [place] [address] Jan, [facility] [address] [id number] [address] [place] [address], [place] [address] Jan, [facility] [address] [id number] [address] [place] [address], [place] [address] Jan, [facility] [address] [id number] [address] [place] [address], [place] [address] Jan, [facility] [address] [id number] [address] [place] [address], [place] [address] Jan, [facility] [address] [id number] [address] [place] [address], [place] [address] Jan, [facility] [address] [id number] [address] [place] [address], [place] [address] Dec, [facility] [address] [id number] [address] [place] [address], [place] [address] Dec, [facility] [address] [id number] [address] [place] [address], [place] [address] Nov, [facility] [address] [id number] [address] [place] [address], [place] [address] Nov, [facility] [address] [id number] [address] [place] [address], [place] [address] Oct, [facility] [address] [id number] [address] [place] [address], [place] [address] Oct, [facility] [address] [id number] [address] [place] [address], [place] [address] Oct, [facility] [address] [id number] [address] [place] [address], [place] [address] Oct, [facility] [address] [id number] [address] [place] [address], [place] [address] Sep, [facility] [address] [id number] [address] [place] [address], [place] [address] Sep, [facility] [address] [id number] [address] [place] [address], [place] [address] Sep, [facility] [address] [id number] [address] [place] [address], [place] [address] Sep, [facility] [address] [id number] [address] [place] [address], [place] [address] Sep, [facility] [address] [id number] [address] [place] [address] Sep, [facility] [address] [id number] [address] [place] [address], [place] [address] Aug, [facility] [address] [id number] [address] [place] [address], [place] [address] Aug, [facility] [address] [id number] [address] [place] [address], [place] [address] Aug, [facility] [address] [id number] [address] [place] [address], [place] [address] Aug, [facility] [address] [id number] [address] [place] [address], [place] [address] Aug, [facility] [address] [id number] [address] [place] [address], [place] [address] Aug, [facility] [address] [id number] [address] [place] [address], [place] [address] Aug, [facility] [address] [id number] [address] [place] [address] Aug, [facility] [address] [id number] [address] [place] [address], [place] [address] Aug, [facility] [address] [id number] [address] [place] [address], [place] [address] Aug, [facility] [address] [id number] [address] [place] [address], [place] [address] 05 Jul, 2014 [facility] [address] [id number] [address] [place] [address], [place] [address] Jul, [facility] [address] [id number] [address] [place] [address], [place] [address] May, [facility] [address] [id number] [address] [place] [address], [place] [address] May, [facility] [address] [id number] [address] [place] [address], [place] [address] May, [facility] [address] [id number] [address] [place] [address], [place] [address] May, [facility] [address] [id number] [address] [place] [address], [place] [address] May, [facility] [address] [id number] [address] [place] [address], [place] [address] May, [facility] [address] [id number] [address] [place] [address], [place] [address] Apr, [facility] [address] [id number] [address] [place] [address], [place] [address] Apr, [facility] [address] [id number] [address] [place] [address], [place] [address] Apr, [facility] [address] [id number] [address] [place] [address], [place] [address] Apr, [facility] [address] [id number] [address] [place] [address], [place] [address] March, [facility] [address] [id number] [address] [place] [address], [place] [address] March, [facility] [address] [id number] [address] [place] [address], [place] [address] Feb, [facility] [address] [id number] [address] [place] [address], [place] [id number] Feb, [facility] [address] [id number] [address] [place] [address], [place] [id number] Jan, [facility] [address] [id number] [address] [place] [address], [place] [id number] Jan, [facility] [address] [id number] [address] [place] [address], [place] [address] Nov, [facility] [address] [id number] [address] [place] [address], [place] [id number] Nov, [facility] [address] [id number] [address] [place] [address], [place] [id number] Nov, [facility] [address] [id number] [address] [place] [address], [place] [id number] Nov, [facility] [address] [id number] [address] [place] [address], [place] [id number] Nov, [facility] [address] [id number] [address] [place] [address], [place] [id number] Nov, [facility] [address] [id number] [address] [place] [address], [place] [id number] Oct, [facility] [address] [id number] [address] [place] [address], [place] [id number] Oct, [facility] [address] [id number] [address] [place] [id number] Aug, [facility] [address] [id number] [address] [place] [address], [place] [id number] Aug, [facility] [address] [id number] [address] [place] [id number] Jul, [facility] [address] [id number] [address] [place] [address], [place] [address] Jun, [facility] [address] [id number] [address] [place] [address], [place] [id number] Jun, [facility] [address] [id number] [address] [place] [id number] Jun, [facility] [address] [id number] [address] [place] [id number] Jun, [facility] [address] [facility] [id number] [address] [place] [id number] Jun, [facility] [address] [facility] [id number] [address] [place] [id number] Jun, [facility] [address] [facility] [id number] [address] [place] [id number] May, [facility] [address] [facility] [id number] [address] [place] [id number] March, [facility] [address] [facility] [id number] [address] [place] [id number] March, [facility] [address] [facility] [id number] [address] [place] [id number] Jan, IMMUNIZATIONS No Known Immunizations SOCIAL HISTORY [...] cyst Hospitalization History surgery Hospitalization History [facility]- Right Leg Pain 09/21/2017 Hospitalization History [facility]- Severe Dehydr ation with Acute Renal Failure 05/06/2018 Hospitalization History Back surgery to remove cyst/ infecti on
--- OUTSIDE RECORDS SUMMARY | 2020-03-23 00:58 | XMS REPORT ---
Author Author Zoran [facility] Organization [facility] Address [address] [place] [address] Care Team Providers Care Manager Membership Name Role Phone ANTWON ETIENNEMARS Unavailable PROBLEMS Type Condition ICD9-CM Code TDE60-FN Code Onset Dates Condition S tatus SNOMED Code Problem Type 2 diabetes mellitus with other specified complication E11.69 Active 3170707 Problem Cervicalgia M54.2 Active 92904619 [id number] Problem HTN (hypertension) I10 Active 3 3418434 Problem Cervical stenosis of spine M48.02 Act cynthia 31513803 Problem Parkinsons disease G20 Active 4 4726039 Problem Hypercholesterolemia E78.0 Active 73198937 Problem Panic F41.0 Active 57325743 Problem Other chronic pain G89.29 Active 8 0464001 Problem Generalized anxiety disorder F41.1 A ctive 30347239 Problem Atherosclerotic heart diseas e of [place] coronary artery without angina pectoris I25.10 Active 192922450 Problem 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 Active 823779554 Problem Lumbar spondylosis M47.816 Active 2 26827966 Problem Cannabis abuse F12.10 Active 71548 009 Problem Recurrent major depressive disorder, in full remission F33.42 Active [id number] ALLERGIES No Information ENCOUNTERS Encounter Location Date Diagnosis [facility] [address] [facility] [id number] [address] [place] [phone] Jun, [address] [address] May, Parkinsons disease G20 ; Hypercholestero lemia E78.0 and HTN (hypertension) I10 [facility] [address] [facility] [id number] [address] [place] [address] May, Tenosynovitis, de Queriqra M 65.4 ; Type 2 diabetes mellitus with other specified complication E11.69 ; Lumbar spondylosis M47.816 and HTN (hypertension) I10 [facility] [address] [facility] [id number] [address] [place] [address] March, [facility] [address] [address] Jan, [facility] [address] [facility] [id number] [address] [place] [address] Dec, Hypercholesterolemia E78.0 [facility] [address] [facility] [id number] [address] [place] [phone] Nov, HTN (hypertension) I10 [place] [address] [facility] [id number] [address] [place] [address] Oct, Generalized anxiety disorder F41.1 and Panic F41.0 [place] [address] [place] [id number] [address] [place] [phone] Oct, Generalized anxiety disorder F41.[address] [facility] [address] [facility] [id number] [address] [place] [address] Aug, Cervicalgia M54.2 [facility] [address] [place] [id number] [address] [place] [address] Aug, Type 2 diabetes mellitus wit h other specified complication E11.69 ; HTN (hypertension) I10 ; Parkinsons disease G20 ; Atherosclerotic heart disease of [place] coronary artery without angina pectoris I25.10 ; Hypercholesterolemia E78.0 and Cervical stenosis of spine M48.02 [facility] [address] [facility] [id number] [address] [place] [address] Aug, Type 2 diabetes mellitus wit h other specified complication E11.69 [facility] [address] [facility] [id number] [address] [place] [address] May, [facility] [address] [facility] [id number] [address] [place] [address] Apr, [facility] [address] [facility] [id number] [address] [place] [address] 22 Apr, 2018 Dehydration E86.0 ; Acute re nal failure, unspecified acute renal failure type N17.9 ; Cannabis abuse F12.10 ; Type 2 diabetes mellitus with other specified complication E11.69 ; HTN (hypertension) I10 ; Parkinsons disease G20 ; Hypercholesterolemia E78.0 ; Atherosclerotic heart disease of [place] coronary artery without angina pectoris I25.10 ; Cervicalgia M54.2 ; Need for hepatitis C screening test Z11.59 and Recurrent major depressive disorder, in full remission F33.42 [place] [address] [place] [id number] [place] [address] 18 Apr, 2018 [place] [address] [place] [id number] [place] [address] 14 Apr, 2018 Dehydration E86.0 ; Hypotens ion, unspecified hypotension type I95.9 ; Fall, initial encounter W19.XXXA ; Acute head injury without loss of consciousness, initial encounter S09.90XA ; Type 2 diabetes mellitus with other specified complication E11.69 ; HTN (hypertension) I10 and Parkinsons disease G20 [place] [address] [place] [id number] [address] [place] [phone] 14 Apr, 2018 [place] [address] [place] [id number] [place] [address] Apr, [place] [address] [facility] [id number] [address] [place] [address] Feb, Cervicalgia M54.2 [place] [address] [facility] [id number] [address] [place] [address] Feb, Cervical stenosis of spine M 48.02 [place] [address] [facility] [id number] [address] [place] [address] Jan, Cervicalgia M54.2 [place] [address] [place] [id number] [address] [place] [address] Jan, Acute right-sided low back p ain with right-sided sciatica M54.41 [place] [address] [place] [id number] [address] [place] [address] Dec, Cervicalgia M54.2 [place] [id number] [facility] [id number] [address] [place] [address] Dec, Controlled substance agreeme nt signed Z79.899 [place] [address] [facility] [id number] [address] [place] [phone] Oct, Cervicalgia M54.2 [place] [address] [facility] [id number] [address] [place] [phone] Oct, Acute right-sided low back p ain with right-sided sciatica M54.41 [place] [address] [facility] [id number] [address] [place] [address] Oct, [place] [address] [facility] [id number] [address] [place] [address] Sep, Cervicalgia M54.2 [place] [address] [facility] [id number] [address] [place] [address] 14 Sep, 2017 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 [place] [address] [facility] [id number] [address] [place] [address] 13 Sep, 2017 Lumbar back pain with radicu lopathy affecting right lower extremity M54.17 [place] [address] [facility] [id number] [address] [place] [address] Sep, Acute right-sided low back p ain with right-sided sciatica M54.41 [place] [address] [facility] [id number] [address] [place] [address] 30 Aug, 2017 Type 2 diabetes mellitus wit h other specified complication E11.69 ; HTN (hypertension) I10 ; Cervicalgia M54.2 ; Cervical stenosis of spine M48.02 ; Acute right hip pain M25.551 ; Atherosclerotic heart disease of [place] coronary artery without angina pectoris I25.10 ; Hypercholesterolemia E78.0 ; Parkinsons disease G20 and Depression F32.9 [place] [address] [facility] [id number] [address] [place] [phone] Aug, Other chronic pain G89.29 [facility] [address] [id number] [address] [place] [phone] Jul, Other chronic pain G89.29 [facility] [address] [id number] [address] [place] [phone] 21 Jul, 2017 [facility] [address] [id number] [address] [place] [phone] 19 Jul, 2017 Cough R05 and Bronchitis J40 [facility] [address] [id number] [address] [place] [phone] 30 Jun, 2017 Other chronic pain G89.29 [facility] [address] [id number] [address] [place] [phone] Jun, [facility] [address] [id number] [address] [place] [phone] Jun, Atherosclerotic heart diseas e of [place] coronary artery without angina pectoris I25.[address] [facility] [address] [id number] [address] [place] [phone] Jun, Cervicalgia M54.2 [facility] [address] [id number] [address] [place] [address] May, Other chronic pain G89.29 [facility] [address] [id number] [address] [place] [phone] May, [facility] [address] [id number] [address] [place] [phone] May, [facility] [address] [id number] [address] [place] [phone] May, [facility] [address] [id number] [address] [place] [phone] May, [facility] [address] [facility] [id number] [address] [place] [address] May, Type 2 diabetes mellitus wit h other specified complication E11.69 ; HTN (hypertension) I10 ; Atherosclerotic heart disease of [place] coronary artery without angina pectoris I25.10 ; Parkinsons disease G20 and Cervical stenosis of spine M48.02 [facility] [address] [id number] [address] [place] [address] Apr, Cervicalgia M54.2 [facility] [address] [id number] [address] [place] [address] Apr, Type 2 diabetes mellitus wit h other specified complication E11.69 ; HTN (hypertension) I10 ; Depression F32.9 ; Atherosclerotic heart disease of [place] coronary artery without angina pectoris I25.10 ; Coronary atherosclerosis due to lipid rich plaque I25.83 ; Cervicalgia M54.2 ; Parkinsons disease G20 ; Chronic diarrhea K52.9 and Pure hypercholesterolemia E78.00 [place] [address] [id number] [address] [place] [phone] March, Other chronic pain G89.29 [place] [address] [id number] [address] [place] [address] March, Other chronic pain G89.29 [place] [address] [id number] [address] [place] [address] Feb, Cervical stenosis of spine M 48.02 [facility] [address] [id number] [address] [place] [phone] Feb, Other chronic pain G89.29 [facility] [address] [id number] [address] [place] [address] Jan, [place] [id number] [id number] [address] [place] [phone] Jan, Other chronic pain G89.29 [facility] [address] [id number] [address] [place] [phone] Jan, Other chronic pain G89.29 [facility] [address] [id number] [address] [place] [address] Jan, Type 2 diabetes mellitus wit h other specified complication E11.69 ; Atherosclerotic heart disease of [place] coronary artery without angina pectoris I25.10 ; Anxiety F41.9 ; HTN (hypertension) I10 ; Depression F32.9 ; Coronary atherosclerosis due to lipid rich plaque I25.83 ; Cervicalgia M54.2 ; Other chronic pain G89.29 and Functional 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 [facility] [address] [facility] [id number] [address] [place] [phone] Nov, HTN (hypertension) I10 [facility] [address] [facility] [id number] [address] [place] [address] Nov, Type 2 diabetes mellitus wit h other specified complication E11.69 ; Atherosclerotic heart disease of [place] coronary artery without angina pectoris I25.10 ; Hypercholesterolemia E78.0 ; Anxiety F41.9 ; Depression F32.9 ; Cervicalgia M54.[address] Functional 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 [facility] [address] [place] [id number] [address] [place] [phone] Oct, [facility] [address] [place] [id number] [address] [place] [phone] Oct, Neck pain M54.2 [facility] [address] [place] [id number] [address] [place] [phone] Sep, [facility] [address] [place] [id number] [address] [place] [phone] Aug, [facility] [address] [place] [id number] [address] [place] [phone] Aug, [facility] [address] [facility] [id number] [address] [place] [phone] Jul, Visit for TB skin test Z11.1 and Screening for tuberculosis Z11.1 [facility] [address] [place] [id number] [address] [place] [phone] May, [facility] [address] [facility] [id number] [address] [place] [phone] May, Neck pain M54.2 [facility] [address] [facility] [id number] [place] [phone] May, [facility] [address] [address] Apr, Neck pain M54.2 [facility] [address] [place] [id number] [place] [address] Feb, Neck pain M54.2 [facility] [address] [phone] Feb, [facility] [address] [place] [id number] [place] [address] Jan, Neck pain M54.2 [facility] [address] [address] Jan, [facility] [address] [address] Jan, Neck pain M54.2 [facility] [address] [address] Jan, Neck pain M54.2 ; Type 2 sarath betes mellitus with other specified complication E11.69 ; CAD (coronary artery disease) 414.00 ; Insomnia 780.52 ; Anxiety F41.9 ; Depression F32.9 ; Pre-ulcerative calluses L84 and Hypercholesterolemia E78.0 [place] [address] [address] Nov, [facility] [address] [address] Nov, Type 2 diabetes mellitus wit h other specified complication E11.69 ; Pre-ulcerative calluses L84 ; HTN (hypertension) I10 ; Hypercholesterolemia E78.0 ; Anxiety F41.9 ; Depression F32.9 ; Environmental allergies Z91.[address] [facility] [address] [address] Sep, [facility] [address] [address] Aug, Allergic rhinitis, seasonal J30.2 [facility] [address] [facility] [id number] [address] [place] [address] Jul, [facility] [address] [place] [id number] [address] [place] [phone] Jul, Other specified cardiac dysr hythmias 427.89 ; Essential hypertension, benign 401.1 ; Nondependent tobacco use disorder 305.1 ; Unspecified hereditary and idiopathic peripheral neuropathy 356.9 ; Diabetes mellitus without mention of complication, type II or unspecified type, not stated as uncontrolled 250.00 ; CAD (coronary artery disease) 414.00 ; Insomnia 780.[address] [facility] [address] [place] [id number] [address] [place] [address] Jul, [facility] [address] [id number] Jul, [facility] [address] [place] [id number] [address] [place] [address] May, [facility] [address] [place] [id number] [address] [place] [phone] May, [facility] [address] [address] May, [facility] [address] [place] [id number] [address] [place] [address] Apr, [facility] [address] [address] Apr, Skin lesion of face 709.9 an d Anxiety 300.00 [facility] [address] [place] [id number] [address] [place] [phone] March, [facility] [address] [place] [id number] [address] [place] [phone] Feb, [facility] [address] [place] [id number] [address] [place] [phone] Feb, [facility] [address] [id number] [address] [place] [address], [place] [address] Jan, [facility] [address] [id number] [address] [place] [address], [place] [address] Jan, [facility] [address] [id number] [address] [place] [address], [place] [address] Jan, [facility] [address] [id number] [address] [place] [address], [place] [address] Jan, [facility] [address] [id number] [address] [place] [address], [place] [address] Jan, [facility] [address] [id number] [address] [place] [address], [place] [address] Jan, [facility] [address] [id number] [address] [place] [address], [place] [address] Dec, [facility] [address] [id number] [address] [place] [address], [place] [address] Dec, [facility] [address] [id number] [address] [place] [address], [place] [address] Nov, [facility] [address] [id number] [address] [place] [address], [place] [address] Nov, [facility] [address] [id number] [address] [place] [address], [place] [address] Oct, [facility] [address] [id number] [address] [place] [address], [place] [address] Oct, [facility] [address] [id number] [address] [place] [address], [place] [address] Oct, [facility] [address] [id number] [address] [place] [address], [place] [address] Oct, [facility] [address] [id number] [address] [place] [address], [place] [address] Sep, [facility] [address] [id number] [address] [place] [address], [place] [address] Sep, [facility] [address] [id number] [address] [place] [address], [place] [address] Sep, [facility] [address] [id number] [address] [place] [address], [place] [address] Sep, [facility] [address] [id number] [address] [place] [address], [place] [address] Sep, [facility] [address] [id number] [address] [place] [phone] Sep, [facility] [address] [id number] [address] [place] [address], [place] [address] Aug, [facility] [address] [id number] [address] [place] [address], [place] [address] Aug, [facility] [address] [id number] [address] [place] [address], [place] [address] Aug, [facility] [address] [id number] [address] [place] [address], [place] [address] Aug, [facility] [address] [id number] [address] [place] [address], [place] [address] Aug, [facility] [address] [id number] [address] [place] [address], [place] [address] Aug, [facility] [address] [id number] [address] [place] [address], [place] [address] Aug, [facility] [address] [id number] [address] [place] [phone] Aug, [facility] [address] [id number] [address] [place] [address], [place] [address] Aug, [facility] [address] [id number] [address] [place] [address], [place] [address] Aug, [facility] [address] [id number] [address] [place] [address], [place] [address] 05 Jul, 2014 [facility] [address] [id number] [address] [place] [address], [place] [address] Jul, [facility] [address] [id number] [address] [place] [address], [place] [address] May, [facility] [address] [id number] [address] [place] [address], [place] [address] May, [facility] [address] [id number] [address] [place] [address], [place] [address] May, [facility] [address] [id number] [address] [place] [address], [place] [address] May, [facility] [address] [id number] [address] [place] [address], [place] [address] May, [facility] [address] [id number] [address] [place] [address], [place] [address] May, [facility] [address] [id number] [address] [place] [address], [place] [address] Apr, [facility] [address] [id number] [address] [place] [address], [place] [address] Apr, [facility] [address] [id number] [address] [place] [address], [place] [address] Apr, [facility] [address] [id number] [address] [place] [address], [place] [address] Apr, [facility] [address] [id number] [address] [place] [address], [place] [address] March, [facility] [address] [id number] [address] [place] [address], [place] [address] March, [facility] [address] [id number] [address] [place] [address], [place] [address] Feb, [facility] [address] [id number] [address] [place] [address], [place] [address] Feb, [facility] [address] [id number] [address] [place] [address], [place] [address] Jan, [facility] [address] [id number] [address] [place] [address], [place] [address] Jan, [facility] [address] [id number] [address] [place] [address], [place] [address] Nov, [facility] [address] [id number] [address] [place] [address], [place] [address] Nov, [facility] [address] [id number] [address] [place] [address], [place] [address] Nov, [facility] [address] [id number] [address] [place] [address], [place] [address] Nov, [facility] [address] [id number] [address] [place] [address], [place] [address] Nov, [facility] [address] [id number] [address] [place] [address], [place] [address] Nov, [facility] [address] [id number] [address] [place] [address], [place] [address] Oct, [facility] [address] [id number] [address] [place] [address], [place] [address] Oct, [facility] [address] [id number] [address] [place] [id number] Aug, [facility] [address] [id number] [address] [place] [address], [place] [address] Aug, [facility] [address] [id number] [address] [place] [id number] Jul, [facility] [address] [id number] [address] [place] [address], [place] [address] Jun, [facility] [address] [id number] [address] [place] [address], [place] [id number] Jun, [facility] [address] [id number] [address] [place] [id number] Jun, [facility] [address] [id number] [address] [place] [phone] Jun, [facility] [address] [facility] [id number] [address] [place] [phone] Jun, [facility] [address] [facility] [id number] [address] [place] [phone] Jun, [facility] [address] [facility] [id number] [address] [place] [phone] May, [facility] [address] [facility] [id number] [address] [place] [phone] March, [facility] [address] [facility] [id number] [address] [place] [phone] March, [facility] [address] [facility] [id number] [address] [place] [phone] Jan, IMMUNIZATIONS No Known Immunizations SOCIAL HISTORY Never Assessed REASON FOR VISIT PLAN OF CARE VITAL SIGNS MEDICATIONS Unknown Medications RESULTS No Results PROCEDURES Procedure Date Ordered Result Body Site COMPLETE CBC W/AUTO DIFF WBC Oct 18, 2014 ASSAY THYROID STIM HORMONE Oct 18, 2014 LIPID PANEL Oct 18, 2014 COMPREHEN METABOLIC PANEL Oct 18, 2014 VENIPUNCT, ROUTINE* Oct 18, 2014 INSTRUCTIONS MEDICATIONS ADMINISTERED No Known Medications [...] cyst Hospitalization History surgery Hospitalization History [facility]- Right Leg Pain 09/21/2017 Hospitalization History [facility]- Severe Dehydr ation with Acute Renal Failure 05/06/2018 Hospitalization History Back surgery to remove cyst/ infecti on
--- OUTSIDE RECORDS SUMMARY | 2020-03-23 00:58 | XMS REPORT ---
Author Author Zoran OLIVER [facility] Organization [facility] Address [address] [place] [address] Care Team Providers Care Weaver Hand Name Role Phone ANTWON ETIENNEMARS Unavailable PROBLEMS Type Condition ICD9-CM Code [id number] Code Onset Dates Condition S tatus SNOMED Code Problem Type 2 diabetes mellitus with other specified complication E11.69 Active 7102536 Problem Cervicalgia M54.2 Active 04038064 [id number] Problem HTN (hypertension) I10 Active 3 9326482 Problem Cervical stenosis of spine M48.02 Act cynthia 37167588 Problem Parkinsons disease G20 Active 4 5445865 Problem Hypercholesterolemia E78.0 Active 89991530 Problem Panic F41.0 Active 89937361 Problem Other chronic pain G89.29 Active 8 8655978 Problem Generalized anxiety disorder F41.1 A ctive 33833545 Problem Atherosclerotic heart diseas e of [place] coronary artery without angina pectoris I25.10 Active 039017099 Problem 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 Active 311817174 Problem Lumbar spondylosis M47.816 Active 2 37562083 Problem Cannabis abuse F12.10 Active 78347 009 Problem Recurrent major depressive disorder, in full remission F33.42 Active 968165178 ALLERGIES No Information ENCOUNTERS Encounter Location Date Diagnosis [facility] [address] [facility] [id number] [address] [place] [address] March, [address] [address] Jan, [facility] [address] [facility] [id number] [address] [place] [address] Dec, Hypercholesterolemia E78.0 [facility] [address] [facility] [id number] [address] [place] [address] Nov, HTN (hypertension) I10 [place] [address] [facility] [id number] [address] [place] [address] Oct, Generalized anxiety disorder F41.1 and Panic F41.0 [place] [address] [place] [id number] [place] [address] Oct, Generalized anxiety disorder F41.1 and Panic F41.0 [place] [address] [place] [id number] [address] [place] [address] Aug, Cervicalgia M54.2 [place] [address] [facility] [id number] [place] [address] Aug, Type 2 diabetes mellitus wit h other specified complication E11.69 ; HTN (hypertension) I10 ; Parkinsons disease G20 ; Atherosclerotic heart disease of [place] coronary artery without angina pectoris I25.10 ; Hypercholesterolemia E78.0 and Cervical stenosis of spine M48.02 [place] [id number] [place] [address] Aug, Type 2 diabetes mellitus wit h other specified complication E11.69 [place] [address] [place] [id number] [address] [place] [address] May, [place] [address] [place] [id number] [place] [address] Apr, [place] [address] [place] [id number] [place] [address] Apr, Dehydration E86.0 ; Acute re nal failure, unspecified acute renal failure type N17.9 ; Cannabis abuse F12.10 ; Type 2 diabetes mellitus with other specified complication E11.69 ; HTN (hypertension) I10 ; Parkinsons disease G20 ; Hypercholesterolemia E78.0 ; Atherosclerotic heart disease of [place] coronary artery without angina pectoris I25.10 ; Cervicalgia M54.2 ; Need for hepatitis C screening test Z11.59 and Recurrent major depressive disorder, in full remission F33.42 [place] [address] [place] [id number] [address] [place] [address] Apr, [place] [address] [place] [id number] [place] [address] 14 Apr, 2018 Dehydration E86.0 ; Hypotens ion, unspecified hypotension type I95.9 ; Fall, initial encounter W19.XXXA ; Acute head injury without loss of consciousness, initial encounter S09.90XA ; Type 2 diabetes mellitus with other specified complication E11.69 ; HTN (hypertension) I10 and Parkinsons disease G20 [place] [address] [address] 14 Apr, 2018 [place] [address] [address] 12 Apr, 2018 [place] [address] [address] Feb, Cervicalgia M54.2 [place] [address] [address] Feb, Cervical stenosis of spine M 48.02 [place] [address] [address] Jan, Cervicalgia M54.2 [place] [address] [address] Jan, Acute right-sided low back p ain with right-sided sciatica M54.41 [place] [address] [address] Dec, Cervicalgia M54.2 [place] [address] [place] [id number] [address] [place] [address] Dec, Controlled substance agreeme nt signed Z79.899 [place] [address] [address] Oct, Cervicalgia M54.2 [place] [address] [place] [id number] [address] [place] [address] Oct, Acute right-sided low back p ain with right-sided sciatica M54.41 [place] [address] [place] [id number] [address] [place] [address] 04 Oct, 2017 [facility] [address] [address] 28 Sep, 2017 Cervicalgia M54.2 [place] [address] [place] [id number] [place] [address] 14 Sep, 2017 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 [place] [address] [place] [id number] [place] [address] 13 Sep, 2017 Lumbar back pain with radicu lopathy affecting right lower extremity M54.17 [place] [address] [address] 03 Sep, 2017 Acute right-sided low back p ain with right-sided sciatica M54.41 [place] [address] [address] Aug, Type 2 diabetes mellitus wit h other specified complication E11.69 ; HTN (hypertension) I10 ; Cervicalgia M54.2 ; Cervical stenosis of spine M48.02 ; Acute right hip pain M25.551 ; Atherosclerotic heart disease of [place] coronary artery without angina pectoris I25.10 ; Hypercholesterolemia E78.0 ; Parkinsons disease G20 and Depression F32.9 [place] [address] [address] Aug, Other chronic pain G89.29 [place] [address] [place] [id number] [address] [place] [address] Jul, Other chronic pain G89.29 [facility] [address] [address] Jul, [facility] [address] [place] [id number] [address] [place] [address] Jul, Cough R05 and Bronchitis J40 [facility] [address] [address] Jun, Other chronic pain G89.29 [facility] [address] [id number] [address] [place] [address] Jun, [facility] [address] [id number] [address] [place] [address] Jun, Atherosclerotic heart diseas e of [place] coronary artery without angina pectoris I25.10 and Cervicalgia M54.2 [facility] [address] [id number] [address] [place] [address] Jun, Cervicalgia M54.2 [facility] [address] [id number] [address] [place] [address] May, Other chronic pain G89.29 [facility] [address] [id number] [address] [place] [address] May, [facility] [address] [id number] [address] [place] [address] May, [facility] [address] [id number] [address] [place] [address] May, [facility] [address] [id number] [address] [place] [address] May, [facility] [address] [id number] [address] [place] [address] May, Type 2 diabetes mellitus wit h other specified complication E11.69 ; HTN (hypertension) I10 ; Atherosclerotic heart disease of [place] coronary artery without angina pectoris I25.10 ; Parkinsons disease G20 and Cervical stenosis of spine M48.02 [facility] [address] [id number] [address] [place] [address] Apr, Cervicalgia M54.2 [facility] [address] [id number] [address] [place] [address] Apr, Type 2 diabetes mellitus wit h other specified complication E11.69 ; HTN (hypertension) I10 ; Depression F32.9 ; Atherosclerotic heart disease of [place] coronary artery without angina pectoris I25.10 ; Coronary atherosclerosis due to lipid rich plaque I25.83 ; Cervicalgia M54.2 ; Parkinsons disease G20 ; Chronic diarrhea K52.9 and Pure hypercholesterolemia E78.00 [facility] [address] [id number] [address] [place] [address] March, Other chronic pain G89.29 [facility] [address] [id number] [address] [place] [address] March, Other chronic pain G89.29 [facility] [address] [id number] [address] [place] [address] Feb, Cervical stenosis of spine M 48.02 [facility] [address] [id number] [address] [place] [address] Feb, Other chronic pain G89.29 [facility] [address] [facility] [id number] [address] [place] [address] Jan, [facility] [address] [facility] [id number] [address] [place] [address] Jan, Other chronic pain G89.29 [facility] [address] [id number] [address] [place] [address] Jan, Other chronic pain G89.29 [facility] [address] [facility] [id number] [address] [place] [address] Jan, Type 2 diabetes mellitus wit h other specified complication E11.69 ; Atherosclerotic heart disease of [place] coronary artery without angina pectoris I25.10 ; Anxiety F41.9 ; HTN (hypertension) I10 ; Depression F32.9 ; Coronary atherosclerosis due to lipid rich plaque I25.83 ; Cervicalgia M54.2 ; Other chronic pain G89.29 and Functional 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 [facility] [address] [facility] [id number] [address] [place] [address] Nov, HTN (hypertension) I10 [facility] [address] [facility] [id number] [address] [place] [address] Nov, Type 2 diabetes mellitus wit h other specified complication E11.69 ; Atherosclerotic heart disease of [place] coronary artery without angina pectoris I25.10 ; Hypercholesterolemia E78.0 ; Anxiety F41.9 ; Depression F32.9 ; Cervicalgia M54.2 and Functional 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 [facility] [address] [facility] [id number] [address] [place] [address] Oct, [facility] [address] [facility] [id number] [address] [place] [address] Oct, Neck pain M54.2 [facility] [address] [facility] [id number] [address] [place] [address] Sep, [facility] [address] [facility] [id number] [address] [place] [address] Aug, [facility] [address] [facility] [id number] [address] [place] [address] Aug, [facility] [address] [facility] [id number] [address] [place] [address] Jul, Visit for TB skin test Z11.1 and Screening for tuberculosis Z11.1 [facility] [address] [facility] [id number] [address] [place] [address] May, [facility] [address] [facility] [id number] [address] [place] [address] May, Neck pain M54.2 [facility] [address] [facility] [id number] [address] [place] [address] May, [facility] [address] [facility] [id number] [address] [place] [address] Apr, Neck pain M54.2 [facility] [address] [facility] [id number] [address] [place] [address] Feb, Neck pain M54.2 [facility] [address] [facility] [id number] [address] [place] [address] Feb, [facility] [address] [facility] [id number] [address] [place] [address] Jan, Neck pain M54.2 [place] [address] [address] Jan, [place] [address] [address] Jan, Neck pain M54.2 [place] [address] [address] Jan, Neck pain M54.2 ; Type 2 sarath betes mellitus with other specified complication E11.69 ; CAD (coronary artery disease) 414.00 ; Insomnia 780.52 ; Anxiety F41.9 ; Depression F32.9 ; Pre-ulcerative calluses L84 and Hypercholesterolemia E78.0 [place] [address] [address] Nov, [place] [address] [address] Nov, Type 2 diabetes mellitus wit h other specified complication E11.69 ; Pre-ulcerative calluses L84 ; HTN (hypertension) I10 ; Hypercholesterolemia E78.0 ; Anxiety F41.9 ; Depression F32.9 ; Environmental allergies Z91.09 and Osteoarthritis M19.90 [place] [address] [address] Sep, [place] [address] [address] Aug, Allergic rhinitis, seasonal J30.2 [place] [address] [address] Jul, [address] [address] Jul, Other specified cardiac dysr hythmias 427.89 ; Essential hypertension, benign 401.1 ; Nondependent tobacco use disorder 305.1 ; Unspecified hereditary and idiopathic peripheral neuropathy 356.9 ; Diabetes mellitus without mention of complication, type II or unspecified type, not stated as uncontrolled 250.00 ; CAD (coronary artery disease) 414.00 ; Insomnia 780.52 and Depression 311 [facility] [address] [id number] [address] [place] [address], [place] [address] 14 Jul, 2015 [facility] [address] [id number] [address] [place] [address] Jul, [facility] [address] [id number] [address] [place] [address] May, [facility] [address] [id number] [address] [place] [address] May, [facility] [address] [id number] [address] [place] [address] May, [facility] [address] [id number] [address] [place] [address] Apr, [facility] [address] [id number] [address] [place] [address] Apr, Skin lesion of face 709.9 an d Anxiety 300.00 [facility] [address] [id number] [address] [place] [address] March, [facility] [address] [id number] [address] [place] [address] Feb, [facility] [address] [id number] [address] [place] [address] Feb, [facility] [address] [id number] [address] [place] [address] Jan, [facility] [address] [id number] [address] [place] [address] Jan, [facility] [address] [id number] [address] [place] [address] Jan, [facility] [address] [id number] [address] [place] [address] Jan, [facility] [address] [id number] [address] [place] [address] Jan, [facility] [address] [id number] [address] [place] [address], [place] [address] Jan, [facility] [address] [id number] [address] [place] [address], [place] [address] Dec, [facility] [address] [id number] [address] [place] [address], [place] [address] Dec, [facility] [address] [id number] [address] [place] [address], [place] [address] Nov, [facility] [address] [id number] [address] [place] [address], [place] [address] Nov, [facility] [address] [id number] [address] [place] [address], [place] [address] Oct, [facility] [address] [id number] [address] [place] [address], [place] [address] Oct, [facility] [address] [id number] [address] [place] [address], [place] [address] Oct, [facility] [address] [id number] [address] [place] [address], [place] [address] Oct, [facility] [address] [id number] [address] [place] [address], [place] [address] Sep, [facility] [address] [id number] [address] [place] [address], [place] [address] Sep, [facility] [address] [id number] [address] [place] [address], [place] [address] Sep, [facility] [address] [id number] [address] [place] [address], [place] [address] Sep, [facility] [address] [id number] [address] [place] [address], [place] [address] Sep, [facility] [address] [id number] [address] [place] [address], [place] [address] Sep, [facility] [address] [id number] [address] [place] [address], [place] [address] Aug, [facility] [address] [id number] [address] [place] [address], [place] [address] Aug, [facility] [address] [id number] [address] [place] [address], [place] [address] Aug, [facility] [address] [id number] [address] [place] [address], [place] [address] Aug, [facility] [address] [id number] [address] [place] [address], [place] [address] Aug, [facility] [address] [id number] [address] [place] [address], [place] [address] Aug, [facility] [address] [id number] [address] [place] [address], [place] [address] Aug, [facility] [address] [id number] [address] [place] [address], [place] [address] Aug, [facility] [address] [id number] [address] [place] [address], [place] [address] Aug, [facility] [address] [id number] [address] [place] [address], [place] [address] Aug, [facility] [address] [id number] [address] [place] [address], [place] [address] Jul, [facility] [address] [id number] [address] [place] [address], [place] [address] Jul, 2013 [facility] [address] [id number] [address] [place] [address], [place] [address] May, [facility] [address] [id number] [address] [place] [address], [place] [address] May, [facility] [address] [id number] [address] [place] [address], [place] [address] May, [facility] [address] [id number] [address] [place] [address], [place] [address] May2013 [facility] [address] [id number] [address] [place] [address], [place] [address] May, [facility] [address] [id number] [address] [place] [address], [place] [address] May, [facility] [address] [id number] [address] [place] [address], [place] [address] Apr, [facility] [address] [id number] [address] [place] [address], [place] [address] Apr, [facility] [address] [id number] [address] [place] [address], [place] [address] Apr, [facility] [address] [id number] [address] [place] [address], [place] [address] Apr, [facility] [address] [id number] [address] [place] [address], [place] [address] March, [facility] [address] [id number] [address] [place] [address], [place] [address] March, [facility] [address] [id number] [address] [place] [address], [place] [address] Feb, [facility] [address] [id number] [address] [place] [address], [place] [address] Feb, [facility] [address] [id number] [address] [place] [address], [place] [address] Jan, [facility] [address] [id number] [address] [place] [address], [place] [address] Jan, [facility] [address] [id number] [address] [place] [address], [place] [address] Nov, [facility] [address] [id number] [address] [place] [address], [place] [address] Nov, [facility] [address] [id number] [address] [place] [address], [place] [address] Nov, [facility] [address] [id number] [address] [place] [address], [place] [address] Nov, [facility] [address] [id number] [address] [place] [address], [place] [address] Nov, [facility] [address] [id number] [address] [place] [address], [place] [address] Nov, [facility] [address] [id number] [address] [place] [address], [place] [address] Oct, [facility] [address] [id number] [address] [place] [address], [place] [address] Oct, [facility] [address] [id number] [address] [place] [address], [place] [address] Aug, [facility] [address] [id number] [address] [place] [address], [place] [address] Aug, [facility] [address] [id number] [address] [place] [address], [place] [address] Jul, [facility] [address] [id number] [address] [place] [address], [place] [address] Jun, [facility] [address] [id number] [address] [place] [address], [place] [address] Jun, [facility] [address] [id number] [address] [place] [address], [place] [address] Jun, [facility] [address] [id number] [address] [place] [address], [place] [address] Jun, [facility] [address] [id number] [address] [place] [address], [place] [address] Jun, [facility] [address] [id number] [address] [place] [address], [place] [address] Jun, [facility] [address] [id number] [address] [place] [address], [place] [address] May, [facility] [address] [id number] [address] [place] [address], [place] [address] March, [facility] [address] [id number] [address] [place] [id number] March, [facility] [address] [facility] [id number] [address] [place] [id number] Jan, IMMUNIZATIONS No Known Immunizations SOCIAL HISTORY Never Assessed REASON FOR VISIT PLAN OF CARE VITAL SIGNS Height 66 in 2015-01-21 Weight 181.4 lbs 2015-01-21 Temperature 97.9 degrees Fahrenheit 2015-01-21 Heart Rate 75 bpm 2015-01-21 Respiratory Rate 18 2015-01-21 Blood pressure systolic 114 mmHg 2015-01-21 Blood pressure diastolic 78 mmHg 2015-01-21 MEDICATIONS Unknown Medications RESULTS No Results PROCEDURES [...] cyst Hospitalization History surgery Hospitalization History [facility]- Right Leg Pain 09/21/2017 Hospitalization History [facility]- Severe Dehydr ation with Acute Renal Failure 05/06/2018 Hospitalization History Back surgery to remove cyst/ infecti on
--- OUTSIDE RECORDS SUMMARY | 2020-03-23 00:58 | XMS REPORT ---
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 Name Role Phone ANTWON ETIENNEMARS Unavailable PROBLEMS Type Condition ICD9-CM Code ELJ32-[place] Code Onset Dates Condition S tatus SNOMED Code Problem Type 2 diabetes mellitus with other specified complication E11.69 Active 1962115 Problem Cervicalgia M54.2 Active [id number] Problem HTN (hypertension) I10 Active 3 7770859 Problem Cervical stenosis of spine M48.02 Act cynthia 17222187 Problem Parkinsons disease G20 Active 4 7167978 Problem Hypercholesterolemia E78.0 Active 26918405 Problem Panic F41.0 Active 25971349 Problem Other chronic pain G89.29 Active 8 7378211 Problem Generalized anxiety disorder F41.1 A ctive 06567705 Problem Atherosclerotic heart diseas e of [place] coronary artery without angina pectoris I25.10 Active 192235023 Problem 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 Active 482180624 Problem Lumbar spondylosis M47.816 Active 2 26577263 Problem Cannabis abuse F12.10 Active 36660 009 Problem Recurrent major depressive disorder, in full remission F33.42 Active [id number] ALLERGIES No Information ENCOUNTERS Encounter Location Date Diagnosis [facility] [place] [address] [facility] [id number] [address] [place] [address] May, [facility] [place] [address] [facility] [id number] [address] [place] [address] March, [address] [address] Jan, [facility] [place] [address] [facility] [id number] [address] [place] [address] Dec, Hypercholesterolemia E78.0 [facility] [place] [address] [address] Nov, HTN (hypertension) I10 [address] [address] Oct, Generalized anxiety disorder F41.1 and Panic F41.[address] [address] Oct, Generalized anxiety disorder F41.1 and Panic F41.0 [place] [address] [address] Aug, Cervicalgia M54.[address] [address] Aug, Type 2 diabetes mellitus wit h other specified complication E11.69 ; HTN (hypertension) I10 ; Parkinsons disease G20 ; Atherosclerotic heart disease of [place] coronary artery without angina pectoris I25.10 ; Hypercholesterolemia E78.0 and Cervical stenosis of spine M48.[address] [address] Aug, Type 2 diabetes mellitus wit h other specified complication E11.69 [place] [address] [address] May, [place] [address] [address] Apr, [address] [address] Apr, Dehydration E86.0 ; Acute re nal failure, unspecified acute renal failure type N17.9 ; Cannabis abuse F12.10 ; Type 2 diabetes mellitus with other specified complication E11.69 ; HTN (hypertension) I10 ; Parkinsons disease G20 ; Hypercholesterolemia E78.0 ; Atherosclerotic heart disease of [place] coronary artery without angina pectoris I25.10 ; Cervicalgia M54.2 ; Need for hepatitis C screening test Z11.59 and Recurrent major depressive disorder, in full remission F33.42 [place] [address] [place] [address] 18 Apr, 2018 [place] [address] [address] 14 Apr, 2018 Dehydration E86.0 ; Hypotens ion, unspecified hypotension type I95.9 ; Fall, initial encounter W19.XXXA ; Acute head injury without loss of consciousness, initial encounter S09.90XA ; Type 2 diabetes mellitus with other specified complication E11.69 ; HTN (hypertension) I10 and Parkinsons disease G20 [place] [address] [address] 14 Apr, 2018 [place] [address] [address] 12 Apr, 2018 [place] [address] [address] Feb, Cervicalgia M54.2 [place] [address] [address] Feb, Cervical stenosis of spine M 48.02 [place] [address] [address] Jan, Cervicalgia M54.2 [place] [address] [address] Jan, Acute right-sided low back p ain with right-sided sciatica M54.41 [place] [address] [address] Dec, Cervicalgia M54.2 [place] [address] [address] Dec, Controlled substance agreeme nt signed Z79.899 [place] [address] [address] Oct, Cervicalgia M54.2 [place] [address] [address] Oct, Acute right-sided low back p ain with right-sided sciatica M54.41 [facility] [place] [address] [facility] [id number] [address] [place] [address] Oct, [facility] [place] [address] [facility] [id number] [address] [place] [address] Sep, Cervicalgia M54.2 [place] [address] [facility] [id number] [address] [place] [address] 14 Sep, 2017 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 [place] [address] [facility] [id number] [address] [place] [address] 13 Sep, 2017 Lumbar back pain with radicu lopathy affecting right lower extremity M54.17 [place] [address] [place] [id number] [address] [place] [address] 03 Sep, 2017 Acute right-sided low back p ain with right-sided sciatica M54.41 [facility] [place] [address] [facility] [id number] [address] [place] [address] 30 Aug, 2017 Type 2 diabetes mellitus wit h other specified complication E11.69 ; HTN (hypertension) I10 ; Cervicalgia M54.2 ; Cervical stenosis of spine M48.02 ; Acute right hip pain M25.551 ; Atherosclerotic heart disease of [place] coronary artery without angina pectoris I25.10 ; Hypercholesterolemia E78.0 ; Parkinsons disease G20 and Depression F32.9 [place] [address] [facility] [id number] [address] [place] [address] Aug, Other chronic pain G89.29 [place] [address] [facility] [id number] [address] [place] [address] Jul, Other chronic pain G89.29 [place] [address] [facility] [id number] [address] [place] [address] Jul, [facility] [address] [facility] [id number] [address] [place] [address] Jul, Cough R05 and Bronchitis J40 [facility] [place] [address] [id number] [address] [place] [address] Jun, Other chronic pain G89.29 [facility] [place] [address] [id number] [address] [place] [address] Jun, [facility] [place] [address] [id number] [address] [place] [address] Jun, Atherosclerotic heart diseas e of [place] coronary artery without angina pectoris I25.10 and Cervicalgia M54.2 [facility] [place] [address] [id number] [address] [place] [address] Jun, Cervicalgia M54.2 [facility] [place] [address] [id number] [address] [place] [address] May, Other chronic pain G89.29 [facility] [place] [address] [id number] [address] [place] [address] May, [facility] [place] [address] [id number] [address] [place] [address] May, [facility] [place] [address] [id number] [address] [place] [address] May, [facility] [place] [address] [id number] [address] [place] [address] May, [facility] [place] [address] [id number] [address] [place] [address] May, Type 2 diabetes mellitus wit h other specified complication E11.69 ; HTN (hypertension) I10 ; Atherosclerotic heart disease of [place] coronary artery without angina pectoris I25.10 ; Parkinsons disease G20 and Cervical stenosis of spine M48.02 [facility] [place] [address] [id number] [address] [place] [address] Apr, Cervicalgia M54.2 [facility] [place] [address] [id number] [address] [place] [address] Apr, Type 2 diabetes mellitus wit h other specified complication E11.69 ; HTN (hypertension) I10 ; Depression F32.9 ; Atherosclerotic heart disease of [place] coronary artery without angina pectoris I25.10 ; Coronary atherosclerosis due to lipid rich plaque I25.83 ; Cervicalgia M54.2 ; Parkinsons disease G20 ; Chronic diarrhea K52.9 and Pure hypercholesterolemia E78.00 [facility] [place] [address] [id number] [address] [place] [address] March, Other chronic pain G89.29 [facility] [place] [address] [id number] [address] [place] [address] March, Other chronic pain G89.29 [place] [address] [id number] [address] [place] [address] Feb, Cervical stenosis of spine M 48.02 [facility] [place] [address] [facility] [id number] [address] [place] [address] Feb, Other chronic pain G89.29 [place] [address] [id number] [address] [place] [address] Jan, [place] [address] [id number] [address] [place] [address] Jan, Other chronic pain G89.29 [facility] [place] [address] [facility] [id number] [address] [place] [address] Jan, Other chronic pain G89.29 [facility] [place] [address] [facility] [id number] [address] [place] [address] Jan, Type 2 diabetes mellitus wit h other specified complication E11.69 ; Atherosclerotic heart disease of [place] coronary artery without angina pectoris I25.10 ; Anxiety F41.9 ; HTN (hypertension) I10 ; Depression F32.9 ; Coronary atherosclerosis due to lipid rich plaque I25.83 ; Cervicalgia M54.2 ; Other chronic pain G89.29 and Functional 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 [facility] [place] [address] [facility] [id number] [address] [place] [address] Nov, HTN (hypertension) I10 [place] [address] [facility] [id number] [place] [address] Nov, Type 2 diabetes mellitus wit h other specified complication E11.69 ; Atherosclerotic heart disease of [place] coronary artery without angina pectoris I25.10 ; Hypercholesterolemia E78.0 ; Anxiety F41.9 ; Depression F32.9 ; Cervicalgia M54.2 and Functional 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 [facility] [place] [address] [facility] [id number] [address] [place] [address] Oct, [facility] [place] [address] [facility] [id number] [place] [address] Oct, Neck pain M54.2 [facility] [place] [address] [place] [id number] [place] [phone] Sep, [facility] [place] [address] [place] [id number] [place] [address] Aug, [facility] [place] [address] [place] [id number] [place] [address] Aug, [facility] [address] [facility] [id number] [address] [place] [phone] Jul, Visit for TB skin test Z11.1 and Screening for tuberculosis Z11.1 [facility] [place] [address] [place] [id number] [address] [place] [address] May, [facility] [place] [address] [facility] [id number] [address] [place] [address] May, Neck pain M54.2 [facility] [place] [address] [place] [id number] [address] [place] [address] May, [facility] [place] [address] [facility] [id number] [address] [place] [address] Apr, Neck pain M54.2 [facility] [place] [address] [place] [id number] [address] [place] [address] Feb, Neck pain M54.2 [facility] [place] [address] [place] [id number] [place] [address] Feb, [place] [address] [address] Jan, Neck pain M54.2 [place] [address] [address] Jan, [place] [address] [address] Jan, Neck pain M54.2 [place] [address] [address] Jan, Neck pain M54.2 ; Type 2 sarath betes mellitus with other specified complication E11.69 ; CAD (coronary artery disease) 414.00 ; Insomnia 780.52 ; Anxiety F41.9 ; Depression F32.9 ; Pre-ulcerative calluses L84 and Hypercholesterolemia E78.0 [place] [address] [address] Nov, [place] [address] [address] Nov, Type 2 diabetes mellitus wit h other specified complication E11.69 ; Pre-ulcerative calluses L84 ; HTN (hypertension) I10 ; Hypercholesterolemia E78.0 ; Anxiety F41.9 ; Depression F32.9 ; Environmental allergies Z91.09 and Osteoarthritis M19.90 [place] [address] [address] Sep, [place] [address] [address] Aug, Allergic rhinitis, seasonal J30.2 [place] [address] [address] Jul, [place] [address] [address] Jul, Other specified cardiac dysr hythmias 427.89 ; Essential hypertension, benign 401.1 ; Nondependent tobacco use disorder 305.1 ; Unspecified hereditary and idiopathic peripheral neuropathy 356.9 ; Diabetes mellitus without mention of complication, type II or unspecified type, not stated as uncontrolled 250.00 ; CAD (coronary artery disease) 414.00 ; Insomnia 780.52 and Depression 311 [facility] [place] [address] [id number] [address] [place] [address] 14 Jul, 2015 [facility] [place] [address] [facility] [id number] [address] [place] [address] Jul, [facility] [place] [address] [id number] [address] [place] [phone] May, [facility] [place] [address] [id number] [address] [place] [address] May, [facility] [place] [address] [facility] [id number] [address] [place] [phone] May, [facility] [place] [address] [facility] [id number] [address] [place] [address] Apr, [facility] [place] [address] [facility] [id number] [address] [place] [address] Apr, Skin lesion of face 709.9 an d Anxiety 300.00 [facility] [place] [address] [place] [id number] [address] [place] [phone] March, [facility] [place] [address] [facility] [id number] [address] [place] [address] Feb, [facility] [place] [address] [facility] [id number] [address] [place] [phone] Feb, [facility] [place] [address] [facility] [id number] [address] [place] [phone] Jan, [facility] [place] [address] [place] [id number] [address] [place] [address] Jan, [facility] [place] [address] [facility] [id number] [address] [place] [phone] Jan, [facility] [place] [address] [place] [id number] [address] [place] [phone] Jan, [facility] [address] [id number] [address] [place] [address], [place] [address] Jan, [facility] [address] [id number] [address] [place] [address], [place] [address] Jan, [facility] [address] [id number] [address] [place] [address], [place] [address] Dec, [facility] [address] [id number] [address] [place] [address], [place] [address] Dec, [facility] [address] [id number] [address] [place] [address], [place] [address] Nov, [facility] [address] [id number] [address] [place] [address], [place] [address] Nov, [facility] [address] [id number] [address] [place] [address], [place] [address] Oct, [facility] [address] [id number] [address] [place] [address], [place] [address] Oct, [facility] [address] [id number] [address] [place] [address], [place] [address] Oct, [facility] [address] [id number] [address] [place] [address], [place] [address] Oct, [facility] [address] [id number] [address] [place] [address], [place] [address] Sep, [facility] [address] [id number] [address] [place] [address], [place] [address] Sep, [facility] [address] [id number] [address] [place] [address], [place] [address] Sep, [facility] [place] [facility] [address] [id number] [address] [place] [address], [place] [address] Sep, [facility] [place] [facility] [address] [id number] [address] [place] [address], [place] [address] Sep, [facility] [address] [id number] [address] [place] [address], [place] [address] Sep, [facility] [place] [facility] [address] [id number] [address] [place] [address], [place] [address] Aug, [facility] [place] [facility] [address] [id number] [address] [place] [address], [place] [address] Aug, [facility] [place] [facility] [address] [id number] [address] [place] [address], [place] [address] Aug, [facility] [place] [facility] [address] [id number] [address] [place] [address], [place] [address] Aug, [facility] [place] [facility] [address] [id number] [address] [place] [address], [place] [address] Aug, [facility] [place] [facility] [address] [id number] [address] [place] [address], [place] [address] Aug, [facility] [place] [facility] [address] [id number] [address] [place] [address], [place] [address] Aug, [facility] [place] [facility] [address] [id number] [address] [place] [address], [place] [address] Aug, [facility] [place] [facility] [address] [id number] [address] [place] [address], [place] [address] Aug, [facility] [place] [facility] [address] [id number] [address] [place] [address], [place] [address] Aug, [facility] [place] [facility] [address] [id number] [address] [place] [address], [place] [address] Jul, [facility] [place] [facility] [address] [id number] [address] [place] [address], [place] [address] Jul, [facility] [place] [facility] [address] [id number] [address] [place] [address], [place] [address] May, [facility] [place] [facility] [address] [id number] [address] [place] [address], [place] [address] May, [facility] [place] [facility] [address] [id number] [address] [place] [address], [place] [address] May, [facility] [place] [facility] [address] [id number] [facility] [address] May, [facility] [address] [id number] [address] [place] [address], [place] [address] May, [facility] [address] [id number] [address] [place] [address], [place] [address] May, [facility] [address] [id number] [address] [place] [address], [place] [address] Apr, [facility] [address] [id number] [address] [place] [address], [place] [address] Apr, [facility] [address] [id number] [address] [place] [address], [place] [address] Apr, [facility] [address] [id number] [address] [place] [address], [place] [address] Apr, [facility] [address] [id number] [address] [place] [address], [place] [address] March, [facility] [address] [id number] [address] [place] [address], [place] [address] March, [facility] [address] [id number] [address] [place] [address], [place] [address] Feb, [facility] [address] [id number] [address] [place] [address], [place] [address] Feb, [facility] [address] [id number] [address] [place] [address], [place] [address] Jan, [facility] [address] [id number] [address] [place] [address], [place] [address] Jan, [facility] [address] [id number] [address] [place] [address], [place] [address] Nov, [facility] [address] [id number] [address] [place] [address], [place] [address] Nov, [facility] [address] [id number] [address] [place] [address], [place] [address] Nov, [facility] [address] [id number] [address] [place] [address], [place] [address] Nov, [facility] [address] [id number] [address] [place] [address], [place] [address] Nov, [facility] [address] [id number] [address] [place] [address], [place] [address] Nov, [facility] [address] [id number] [address] [place] [address], [place] [address] Oct, [facility] [address] [id number] [address] [place] [address], [place] [address] Oct, [facility] [address] [id number] [address] [place] [address], [place] [address] Aug, [facility] [address] [id number] [address] [place] [address], [place] [address] Aug, [facility] [address] [id number] [address] [place] [address], [place] [address] Jul, [facility] [address] [id number] [address] [place] [address], [place] [address] Jun, [facility] [address] [id number] [address] [place] [address], [place] [address] Jun, [facility] [address] [id number] [address] [place] [address], [place] [address] Jun, [facility] [address] [id number] [address] [place] [address], [place] [address] Jun, [facility] [address] [id number] [address] [place] [address], [place] [address] Jun, [facility] [address] [id number] [address] [place] [address], [place] [address] Jun, [facility] [address] [id number] [address] [place] [address], [place] [id number] May, [facility] [address] [id number] [place] [id number] March, [facility] [place] [address] [facility] [id number] [place] [phone] March, [facility] [place], [facility] [address] [facility] [id number] [place] [phone] Jan, IMMUNIZATIONS No Known Immunizations SOCIAL HISTORY [...] cyst Hospitalization History surgery Hospitalization History [facility]- Right Leg Pain 09/21/2017 Hospitalization History [facility]- Severe Dehydr ation with Acute Renal Failure 05/06/2018 Hospitalization History Back surgery to remove cyst/ infecti on
--- OUTSIDE RECORDS SUMMARY | 2020-03-23 00:59 | XMS REPORT ---
Author Author Zoran Ahuja Doctor Organization [facility] Address Unknown Phone Unavailable Care Team Providers Care Binder Technician Name Role Phone Migration, Doctor Unavailable Unavailable PROBLEMS Type Condition ICD9-CM Code BHB96-PD Code Onset Dates Condition S tatus SNOMED Code Problem Type 2 diabetes mellitus with other specified complication E11.69 Active 0982365 Problem Cervicalgia M54.2 Active 56895643 [id number] Problem HTN (hypertension) I10 Active 3 6112789 Problem Cervical stenosis of spine M48.02 Act cynthia 28575712 Problem Parkinsons disease G20 Active 4 4401605 Problem Hypercholesterolemia E78.0 Active 57459339 Problem Panic F41.0 Active 48461269 Problem Other chronic pain G89.29 Active 8 9611820 Problem Generalized anxiety disorder F41.1 A ctive 45156790 Problem Atherosclerotic heart diseas e of [place] coronary artery without angina pectoris I25.10 Active 789768044 Problem 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 Active 862278530 Problem Lumbar spondylosis M47.816 Active 2 49383943 Problem Cannabis abuse F12.10 Active 59861 009 Problem Recurrent major depressive disorder, in full remission F33.42 Active 773078486 ALLERGIES No Information ENCOUNTERS Encounter Location Date Diagnosis [address] [id number] Jan, [facility] [address] [facility] [id number] [address] [place] [phone] Dec, Hypercholesterolemia E78.0 [facility] [address] [facility] [id number] [address] [place] [phone] Nov, HTN (hypertension) I10 [facility] [address] [facility] [id number] [address] [place] [id number] Oct, Generalized anxiety disorder F41.1 and Panic F41.0 [facility] [address] [facility] [id number] [address] [place] [phone] Oct, Generalized anxiety disorder F41.1 and Panic F41.0 [place] [id number] [facility] [id number] [address] [place] [phone] Aug, Cervicalgia M54.2 [facility] [address] [facility] [id number] [address] [place] [phone] Aug, Type 2 diabetes mellitus wit h other specified complication E11.69 ; HTN (hypertension) I10 ; Parkinsons disease G20 ; Atherosclerotic heart disease of [place] coronary artery without angina pectoris I25.10 ; Hypercholesterolemia E78.0 and Cervical stenosis of spine M48.02 [place] [address] [facility] [id number] [place] [phone] Aug, Type 2 diabetes mellitus wit h other specified complication E11.69 [place] [address] [facility] [id number] [address] [place] [phone] May, [place] [address] [address] [place] [id number] [address] [place] [phone] Apr, [place] [address] [facility] [id number] [address] [place] [phone] Apr, Dehydration E86.0 ; Acute re nal failure, unspecified acute renal failure type N17.9 ; Cannabis abuse F12.10 ; Type 2 diabetes mellitus with other specified complication E11.69 ; HTN (hypertension) I10 ; Parkinsons disease G20 ; Hypercholesterolemia E78.0 ; Atherosclerotic heart disease of [place] coronary artery without angina pectoris I25.10 ; Cervicalgia M54.2 ; Need for hepatitis C screening test Z11.59 and Recurrent major depressive disorder, in full remission F33.42 [place] [address] [facility] [id number] [address] [place] [phone] Apr, [place] [address] [place] [id number] [place] [address] Apr, Dehydration E86.0 ; Hypotens ion, unspecified hypotension type I95.9 ; Fall, initial encounter W19.XXXA ; Acute head injury without loss of consciousness, initial encounter S09.90XA ; Type 2 diabetes mellitus with other specified complication E11.69 ; HTN (hypertension) I10 and Parkinsons disease G20 [facility] [address] [id number] [address] [place] [id number] 14 Apr, 2018 [facility] [address] [facility] [id number] [address] [place] [id number] Apr, [facility] [address] [facility] [id number] [address] [place] [phone] Feb, Cervicalgia M54.2 [facility] [address] [id number] [address] [place] [id number] Feb, Cervical stenosis of spine M 48.02 [facility] [address] [facility] [id number] [address] [place] [phone] Jan, Cervicalgia M54.2 [facility] [address] [facility] [id number] [address] [place] [phone] Jan, Acute right-sided low back p ain with right-sided sciatica M54.41 [facility] [address] [facility] [id number] [address] [place] [phone] Dec, Cervicalgia M54.2 [facility] [address] [facility] [id number] [address] [place] [phone] Dec, Controlled substance agreeme nt signed Z79.899 [facility] [address] [facility] [id number] [address] [place] [phone] Oct, Cervicalgia M54.2 [facility] [address] [facility] [id number] [address] [place] [phone] Oct, Acute right-sided low back p ain with right-sided sciatica M54.41 [facility] [address] [facility] [id number] [address] [place] [phone] Oct, [facility] [address] [facility] [id number] [address] [place] [phone] Sep, Cervicalgia M54.2 [facility] [address] [place] [id number] [address] [place] [phone] 14 Sep, 2017 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 [place] [address] [facility] [id number] [address] [place] [phone] 13 Sep, 2017 Lumbar back pain with radicu lopathy affecting right lower extremity M54.17 [place] [address] [address] 03 Sep, 2017 Acute right-sided low back p ain with right-sided sciatica M54.41 [place] [address] [address] [place] [id number] [address] [place] [phone] 30 Aug, 2017 Type 2 diabetes mellitus wit h other specified complication E11.69 ; HTN (hypertension) I10 ; Cervicalgia M54.2 ; Cervical stenosis of spine M48.02 ; Acute right hip pain M25.551 ; Atherosclerotic heart disease of [place] coronary artery without angina pectoris I25.10 ; Hypercholesterolemia E78.0 ; Parkinsons disease G20 and Depression F32.9 [place] [address] [address] Aug, Other chronic pain G89.29 [place] [address] [place] [id number] [place] [address] Jul, Other chronic pain G89.29 [facility] [address] [place] [id number] [address] [place] [phone] Jul, [facility] [address] [place] [id number] [address] [place] [phone] Jul, Cough R05 and Bronchitis J40 [facility] [address] [facility] [id number] [address] [place] [phone] Jun, Other chronic pain G89.29 [facility] [address] [place] [id number] [address] [place] [phone] Jun, [facility] [address] [place] [id number] [place] [phone] Jun, Atherosclerotic heart diseas e of [place] coronary artery without angina pectoris I25.10 and Cervicalgia M54.2 [facility] [address] [id number] [address] [place] [phone] Jun, Cervicalgia M54.2 [facility] [address] [id number] [address] [place] [phone] May, Other chronic pain G89.29 [facility] [address] [id number] [address] [place] [phone] May, [facility] [address] [id number] [address] [place] [phone] May, [facility] [address] [id number] [address] [place] [phone] May, [facility] [address] [id number] [address] [place] [phone] May, [facility] [address] [facility] [id number] [address] [place] [phone] May, Type 2 diabetes mellitus wit h other specified complication E11.69 ; HTN (hypertension) I10 ; Atherosclerotic heart disease of [place] coronary artery without angina pectoris I25.10 ; Parkinsons disease G20 and Cervical stenosis of spine M48.02 [facility] [address] [id number] [address] [place] [phone] Apr, Cervicalgia M54.2 [facility] [address] [facility] [id number] [address] [place] [phone] Apr, Type 2 diabetes mellitus wit h other specified complication E11.69 ; HTN (hypertension) I10 ; Depression F32.9 ; Atherosclerotic heart disease of [place] coronary artery without angina pectoris I25.10 ; Coronary atherosclerosis due to lipid rich plaque I25.83 ; Cervicalgia M54.2 ; Parkinsons disease G20 ; Chronic diarrhea K52.9 and Pure hypercholesterolemia E78.00 [facility] [address] [id number] [address] [place] [phone] March, Other chronic pain G89.29 [facility] [address] [facility] [id number] [address] [place] [id number] March, Other chronic pain G89.29 [facility] [address] [facility] [id number] [address] [place] [phone] Feb, Cervical stenosis of spine M 48.02 [facility] [address] [facility] [id number] [address] [place] [id number] Feb, Other chronic pain G89.29 [facility] [address] [facility] [id number] [address] [place] [phone] Jan, [facility] [address] [facility] [id number] [address] [place] [phone] Jan, Other chronic pain G89.29 [facility] [address] [facility] [id number] [address] [place] [id number] Jan, Other chronic pain G89.29 [facility] [address] [facility] [id number] [address] [place] [phone] Jan, Type 2 diabetes mellitus wit h other specified complication E11.69 ; Atherosclerotic heart disease of [place] coronary artery without angina pectoris I25.10 ; Anxiety F41.9 ; HTN (hypertension) I10 ; Depression F32.9 ; Coronary atherosclerosis due to lipid rich plaque I25.83 ; Cervicalgia M54.2 ; Other chronic pain G89.29 and Functional 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 [facility] [address] [facility] [id number] [address] [place] [phone] Nov, HTN (hypertension) I10 [facility] [address] [facility] [id number] [address] [place] [phone] Nov, Type 2 diabetes mellitus wit h other specified complication E11.69 ; Atherosclerotic heart disease [place] coronary artery without angina pectoris I25.10 ; Hypercholesterolemia E78.0 ; Anxiety F41.9 ; Depression F32.9 ; Cervicalgia M54.2 and Functional 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 [facility] [address] [facility] [id number] [address] [place] [phone] Oct, [facility] [address] [id number] [address] [place] [phone] Oct, Neck pain M54.2 [facility] [address] [id number] [address] [place] [phone] Sep, [facility] [address] [id number] [address] [place] [phone] Aug, [facility] [address] [id number] [address] [place] [phone] Aug, [facility] [address] [id number] [address] [place] [phone] Jul, Visit for TB skin test Z11.1 and Screening for tuberculosis Z11.1 [facility] [address] [id number] [address] [place] [phone] May, [facility] [address] [id number] [address] [place] [id number] May, Neck pain M54.2 [facility] [address] [id number] [address] [place] [phone] May, [facility] [address] [id number] [address] [place] [phone] Apr, Neck pain M54.2 [facility] [address] [id number] [address] [place] [phone] Feb, Neck pain M54.2 [facility] [address] [id number] [address] [place] [phone] Feb, [facility] [address] [id number] [address] [place] [phone] 30 Jan, 2016 Neck pain M54.2 [facility] [address] [id number] [address] [place] [id number] 17 Jan, 2016 [facility] [address] [id number] [address] [place] [phone] Jan, Neck pain M54.[address] [address] Jan, Neck pain M54.2 ; Type 2 sarath betes mellitus with other specified complication E11.69 ; CAD (coronary artery disease) 414.00 ; Insomnia 780.52 ; Anxiety F41.9 ; Depression F32.9 ; Pre-ulcerative calluses L84 and Hypercholesterolemia E78.[address] [address] Nov, [address] [address] Nov, Type 2 diabetes mellitus wit h other specified complication E11.69 ; Pre-ulcerative calluses L84 ; HTN (hypertension) I10 ; Hypercholesterolemia E78.0 ; Anxiety F41.9 ; Depression F32.9 ; Environmental allergies Z91.09 and Osteoarthritis M19.[address] [address] Sep, [address] [address] Aug, Allergic rhinitis, seasonal J30.[address] [address] Jul, [address] [address] Jul, Other specified cardiac dysr hythmias 427.89 ; Essential hypertension, benign 401.1 ; Nondependent tobacco use disorder 305.1 ; Unspecified hereditary and idiopathic peripheral neuropathy 356.9 ; Diabetes mellitus without mention of complication, type II or unspecified type, not stated as uncontrolled 250.00 ; CAD (coronary artery disease) 414.00 ; Insomnia 780.52 and Depression [address] [address] 14 Jul, [address] [address] Jul, [facility] [address] [id number] [address] [place] [address], [place] [address] May, [facility] [address] [id number] [address] [place] [address], [place] [address] May, [facility] [address] [id number] [address] [place] [address], [place] [address] May, [facility] [address] [id number] [address] [place] [phone] Apr, [facility] [address] [id number] [address] [place] [phone] Apr, Skin lesion of face 709.9 an d Anxiety 300.00 [facility] [address] [id number] [address] [place] [address], [place] [address] March, [facility] [address] [id number] [address] [place] [phone] Feb, [facility] [address] [id number] [address] [place] [phone] Feb, [facility] [address] [id number] [address] [place] [address], [place] [address] Jan, [facility] [address] [id number] [address] [place] [phone] Jan, [facility] [address] [id number] [address] [place] [address], [place] [address] Jan, [facility] [address] [id number] [address] [place] [phone] Jan, [facility] [address] [id number] [address] [place] [phone] Jan, [facility] [address] [id number] [address] [place] [phone] Jan, [facility] [address] [id number] [address] [place] [phone] Dec, [facility] [address] [id number] [address] [place] [address], [place] [address] Dec, [facility] [address] [id number] [address] [place] [address], [place] [address] Nov, [facility] [address] [id number] [address] [place] [address], [place] [address] Nov, [facility] [address] [id number] [address] [place] [address], [place] [address] Oct, [facility] [address] [id number] [address] [place] [address], [place] [address] Oct, [facility] [address] [id number] [address] [place] [address], [place] [address] Oct, [facility] [address] [id number] [address] [place] [address], [place] [address] Oct, [facility] [address] [id number] [address] [place] [address], [place] [address] Sep, [facility] [address] [id number] [address] [place] [address], [place] [address] Sep, [facility] [address] [id number] [address] [place] [address], [place] [address] Sep, [facility] [address] [id number] [address] [place] [address], [place] [address] Sep, [facility] [address] [id number] [address] [place] [phone] Sep, [facility] [address] [id number] [address] [place] [address], [place] [address] Sep, [facility] [address] [id number] [address] [place] [address], [place] [address] Aug, [facility] [address] [id number] [address] [place] [address], [place] [address] Aug, [facility] [address] [id number] [address] [place] [phone] Aug, [facility] [address] [id number] [address] [place] [address], [place] [address] Aug, [facility] [address] [id number] [address] [place] [address], [place] [address] Aug, [facility] [address] [id number] [address] [place] [address], [place] [address] Aug, [facility] [address] [id number] [address] [place] [address], [place] [address] Aug, [facility] [address] [id number] [address] [place] [address], [place] [address] Aug, [facility] [address] [id number] [address] [place] [address], [place] [address] Aug, [facility] [address] [id number] [address] [place] [address], [place] [address] Aug, [facility] [address] [id number] [address] [place] [address], [place] [address] Jul, [facility] [address] [id number] [address] [place] [address], [place] [address] Jul, [facility] [address] [id number] [address] [place] [address], [place] [address] May, [facility] [address] [id number] [address] [place] [address], [place] [address] May, [facility] [address] [id number] [address] [place] [address], [place] [address] May, [facility] [address] [id number] [address] [place] [address], [place] [address] May, [facility] [address] [id number] [address] [place] [address], [place] [address] May, [facility] [address] [id number] [address] [place] [address], [place] [address] May, [facility] [address] [id number] [address] [place] [address], [place] [address] Apr, [facility] [address] [id number] [address] [place] [address], [place] [address] Apr, [facility] [address] [id number] [address] [place] [address], [place] [address] Apr, [facility] [address] [id number] [address] [place] [address], [place] [address] Apr, [facility] [address] [id number] [address] [place] [address], [place] [address] March, [facility] [address] [id number] [address] [place] [address], [place] [address] March, [facility] [address] [id number] [address] [place] [address], [place] [address] Feb, [facility] [address] [id number] [address] [place] [address], [place] [address] Feb, [facility] [address] [id number] [address] [place] [address], [place] [address] Jan, [facility] [address] [id number] [address] [place] [address], [place] [address] Jan, [facility] [address] [id number] [address] [place] [address], [place] [phone] Nov, [facility] [address] [id number] [address] [place] [address], [place] [phone] Nov, [facility] [address] [id number] [address] [place] [address], [place] [id number] Nov, [facility] [address] [id number] [address] [place] [address], [place] [phone] Nov, [facility] [address] [id number] [address] [place] [address], [place] [phone] Nov, [facility] [address] [id number] [address] [place] [address], [place] [phone] Nov, [facility] [address] [id number] [address] [place] [phone] Oct, [facility] [address] [id number] [address] [place] [phone] Oct, [facility] [address] [id number] [address] [place] [phone] Aug, [facility] [address] [id number] [address] [place] [phone] Aug, [facility] [address] [id number] [address] [place] [address], [place] [phone] Jul, [facility] [address] [id number] [address] [place] [phone] Jun, [facility] [address] [id number] [address] [place] [phone] Jun, [facility] [address] [id number] [address] [place] [phone] Jun, [facility] [address] [id number] [address] [place] [phone] Jun, [facility] [address] [id number] [address] [place] [phone] Jun, [facility] [address] [id number] [address] [place] [phone] Jun, [facility] [address] [id number] [address] [place] [id number] May, [facility] [address] [id number] [address] [place] [phone] March, [facility] [address] [id number] [address] [place] [phone] March, [facility] [address] [id number] [address] [place] [phone] Jan, IMMUNIZATIONS No Known Immunizations SOCIAL HISTORY Never Assessed REASON FOR VISIT EMR-[facility] [place] PLAN OF CARE VITAL SIGNS MEDICATIONS Medication Instructions Dosage Frequency Start Date End Date Duration S tatus Coreg 6.25 mg take 1 tablet (6.25 mg) by oral route 2 times per day with food Jan, Active Ibuprofen 400 mg take 1 tablet (400 m g) by oral route every 4 hours as needed for pain Jan, Active Lisinopril 20 mg take 1 tablet (20 mg) by oral route o nce daily Aug, Active Risperdal 4 mg take 1 tablet by Oral route 1 time per day Jan, Active buspirone 30 mg take 1 tablet (30 mg) by oral route 2 times per day Aug, Active Depakote 500 mg take by Oral route 1 tablet in the morning and 2 tablets at bedtime. Aug, Active Glucophage 1,000 mg take 1 tablet (1,000 mg) by oral route 2 times per day with morning and evening meals Jan, Active Lomotil 2.5-0.025 mg 2 tablet by Oral route 3 times pe r day PRN Oct, Active Aspirin 325 mg take 1 tablet (325 mg) by oral route once d aily Aug, Active Zocor 40 mg take 1 tablet (40 mg) by oral route once daily in the evening Nov, Active Viagra 25 mg 1 tablet by Oral route 1 time per day 2013 Active doxepin 25 mg take 2 capsules (50 mg) by oral route on ce daily at bedtime Aug, Active RESULTS No Results PROCEDURES No Known [...] Hospital- Right Leg Pain 09/21/2017 Hospitalization History [facility]- Severe Dehydr ation with Acute Renal Failure 05/06/2018 Hospitalization History Back surgery to remove cyst/ infecti on
--- OUTSIDE RECORDS SUMMARY | 2020-03-23 00:59 | XMS REPORT ---
Author Author Zoran Ahuja Doctor Organization [facility] Address Unknown Phone Unavailable Care Team Providers Care Vice President Business Development Name Role Phone Migration, Doctor Unavailable Unavailable PROBLEMS Type Condition ICD9-CM Code RMS90-JT Code Onset Dates Condition S tatus SNOMED Code Problem Type 2 diabetes mellitus with other specified complication E11.69 Active 3537545 Problem Cervicalgia M54.2 Active 02728372 0205624 Problem HTN (hypertension) I10 Active 3 2437976 Problem Cervical stenosis of spine M48.02 Act cynthia 91106410 Problem Parkinsons disease G20 Active 4 8131537 Problem Hypercholesterolemia E78.0 Active 51719648 Problem Panic F41.0 Active 93987057 Problem Other chronic pain G89.29 Active 8 6178201 Problem Generalized anxiety disorder F41.1 A ctive 61580001 Problem 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 Active 660430704 Problem 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 Active 949175681 Problem Lumbar spondylosis M47.816 Active 2 22954778 Problem Cannabis abuse F12.10 Active 23723 009 Problem Recurrent major depressive disorder, in full remission F33.42 Active 609547072 ALLERGIES No Information ENCOUNTERS Encounter Location Date Diagnosis [facility] [place] [address] [facility] [id number] [address] [place] [address] March, [address] [address] Jan, [facility] [place] [address] [facility] [id number] [address] [place] [address] Dec, Hypercholesterolemia E78.0 [facility] [place] [address] [facility] [id number] [address] [place] [address] Nov, HTN (hypertension) I10 [facility] [place] [address] [facility] [id number] [address] [place] [address] Oct, Generalized anxiety disorder F41.1 and Panic F41.0 [place] [address] [address] Oct, Generalized anxiety disorder F41.1 and Panic F41.0 [place] [address] [place] [id number] [place] [address] Aug, Cervicalgia M54.[address] [address] Aug, Type 2 diabetes mellitus wit h other specified complication E11.69 ; HTN (hypertension) I10 ; Parkinsons disease G20 ; 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 ; Hypercholesterolemia E78.0 and Cervical stenosis of spine M48.02 [place] [address] [address] Aug, Type 2 diabetes mellitus wit h other specified complication E11.[address] [address] May, [place] [address] [address] Apr, [address] [address] Apr, Dehydration E86.0 ; Acute re nal failure, unspecified acute renal failure type N17.9 ; Cannabis abuse F12.10 ; Type 2 diabetes mellitus with other specified complication E11.69 ; HTN (hypertension) I10 ; Parkinsons disease G20 ; Hypercholesterolemia E78.0 ; 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 ; Cervicalgia M54.2 ; Need for hepatitis C screening test Z11.59 and Recurrent major depressive disorder, in full remission F33.[address] [address] Apr, [place] [address] [address] Apr, Dehydration E86.0 ; Hypotens ion, unspecified hypotension type I95.9 ; Fall, initial encounter W19.XXXA ; Acute head injury without loss of consciousness, initial encounter S09.90XA ; Type 2 diabetes mellitus with other specified complication E11.69 ; HTN (hypertension) I10 and Parkinsons disease G20 [facility] [place] [address] [id number] [address] [place] [address] 14 Apr, 2018 [facility] [place] [address] [id number] [address] [place] [address] Apr, [facility] [place] [address] [facility] [id number] [address] [place] [address] Feb, Cervicalgia M54.2 [place] [address] [facility] [id number] [address] [place] [address] Feb, Cervical stenosis of spine M 48.02 [place] [address] [facility] [id number] [address] [place] [address] Jan, Cervicalgia M54.2 [place] [address] [facility] [id number] [address] [place] [address] Jan, Acute right-sided low back p ain with right-sided sciatica M54.41 [place] [address] [facility] [id number] [address] [place] [address] Dec, Cervicalgia M54.2 [place] [address] [facility] [id number] [address] [place] [address] Dec, Controlled substance agreeme nt signed Z79.899 [place] [address] [id number] [address] [place] [address] Oct, Cervicalgia M54.2 [place] [address] [facility] [id number] [address] [place] [address] Oct, Acute right-sided low back p ain with right-sided sciatica M54.41 [place] [id number] [facility] [id number] [address] [place] [address] Oct, [facility] [place] [id number] [place] [address] 28 Sep, 2017 Cervicalgia M54.2 [place] [address] [address] 14 Sep, 2017 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 [facility] [place] [address] [address] 13 Sep, 2017 Lumbar back pain with radicu lopathy affecting right lower extremity M54.17 [place] [address] [address] 03 Sep, 2017 Acute right-sided low back p ain with right-sided sciatica M54.41 [place] [address] [address] Aug, Type 2 diabetes mellitus wit h other specified complication E11.69 ; HTN (hypertension) I10 ; Cervicalgia M54.2 ; Cervical stenosis of spine M48.02 ; Acute right hip pain M25.551 ; 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 ; Hypercholesterolemia E78.0 ; Parkinsons disease G20 and Depression F32.9 [place] [address] [address] Aug, Other chronic pain G89.29 [place] [address] [address] Jul, Other chronic pain G89.29 [place] [address] [place] [id number] [address] [place] [address] Jul, [facility] [address] [place] [id number] [address] [place] [address] Jul, Cough R05 and Bronchitis J40 [facility] [place] [address] [place] [id number] [place] [address] Jun, Other chronic pain G89.29 [place] [address] [address] Jun, [facility] [place] [address] [id number] [address] [place] [address] Jun, 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 and Cervicalgia M54.2 [facility] [place] [address] [id number] [address] [place] [address] Jun, Cervicalgia M54.2 [facility] [place] [address] [id number] [address] [place] [address] May, Other chronic pain G89.29 [facility] [place] [address] [id number] [address] [place] [address] May, [facility] [place] [address] [id number] [address] [place] [address] May, [facility] [place] [address] [id number] [address] [place] [address] May, [facility] [place] [address] [id number] [address] [place] [address] May, [facility] [place] [address] [id number] [address] [place] [address] May, Type 2 diabetes mellitus wit h other specified complication E11.69 ; HTN (hypertension) I10 ; 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 ; Parkinsons disease G20 and Cervical stenosis of spine M48.02 [facility] [place] [address] [id number] [address] [place] [address] Apr, Cervicalgia M54.2 [facility] [place] [address] [id number] [address] [place] [address] Apr, Type 2 diabetes mellitus wit h other specified complication E11.69 ; HTN (hypertension) I10 ; Depression F32.9 ; 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 ; Coronary atherosclerosis due to lipid rich plaque I25.83 ; Cervicalgia M54.2 ; Parkinsons disease G20 ; Chronic diarrhea K52.9 and Pure hypercholesterolemia E78.00 [place] [address] [id number] [address] [place] [address] March, Other chronic pain G89.29 [facility] [place] [address] [facility] [id number] [address] [place] [address] March, Other chronic pain G89.29 [facility] [place] [address] [facility] [id number] [address] [place] [address] Feb, Cervical stenosis of spine M 48.02 [facility] [place] [address] [facility] [id number] [address] [place] [address] Feb, Other chronic pain G89.29 [place] [address] [facility] [id number] [address] [place] [address] Jan, [place] [address] [facility] [id number] [address] [place] [address] Jan, Other chronic pain G89.29 [place] [address] [facility] [id number] [address] [place] [address] Jan, Other chronic pain G89.29 [facility] [place] [address] [facility] [id number] [address] [place] [address] Jan, Type 2 diabetes mellitus wit h other specified complication E11.69 ; 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 ; Anxiety F41.9 ; HTN (hypertension) I10 ; Depression F32.9 ; Coronary atherosclerosis due to lipid rich plaque I25.83 ; Cervicalgia M54.2 ; Other chronic pain G89.29 and Functional 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 [facility] [place] [address] [facility] [id number] [address] [place] [address] Nov, HTN (hypertension) I10 [facility] [place] [address] [facility] [id number] [address] [place] [address] Nov, Type 2 diabetes mellitus wit h other specified complication E11.69 ; 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 ; Hypercholesterolemia E78.0 ; Anxiety F41.9 ; Depression F32.9 ; Cervicalgia M54.2 and Functional 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 [facility] [place] [address] [id number] [address] [place] [address] Oct, [facility] [place] [address] [id number] [address] [place] [address] Oct, Neck pain M54.2 [facility] [place] [address] [id number] [address] [place] [address] Sep, [facility] [place] [address] [id number] [address] [place] [address] Aug, [facility] [place] [address] [id number] [address] [place] [address] Aug, [facility] [address] [id number] [address] [place] [address] Jul, Visit for TB skin test Z11.1 and Screening for tuberculosis Z11.1 [facility] [place] [address] [id number] [address] [place] [address] May, [facility] [place] [address] [id number] [address] [place] [address] May, Neck pain M54.2 [facility] [place] [address] [id number] [address] [place] [address] May, [facility] [place] [address] [id number] [address] [place] [address] Apr, Neck pain M54.2 [facility] [place] [address] [id number] [address] [place] [address] Feb, Neck pain M54.2 [facility] [place] [address] [id number] [address] [place] [address] Feb, [facility] [place] [address] [id number] [address] [place] [address] Jan, Neck pain M54.2 [facility] [place] [address] [id number] [address] [place] [address] Jan, [place] [address] [address] 16 Jan, 2016 Neck pain M54.2 [place] [address] [address] Jan, Neck pain M54.2 ; Type 2 sarath betes mellitus with other specified complication E11.69 ; CAD (coronary artery disease) 414.00 ; Insomnia 780.52 ; Anxiety F41.9 ; Depression F32.9 ; Pre-ulcerative calluses L84 and Hypercholesterolemia E78.0 [place] [address] [address] Nov, [address] [address] Nov, Type 2 diabetes mellitus wit h other specified complication E11.69 ; Pre-ulcerative calluses L84 ; HTN (hypertension) I10 ; Hypercholesterolemia E78.0 ; Anxiety F41.9 ; Depression F32.9 ; Environmental allergies Z91.09 and Osteoarthritis M19.90 [place] [address] [address] Sep, [address] [address] Aug, Allergic rhinitis, seasonal J30.[address] [address] Jul, [address] [address] Jul, Other specified cardiac dysr hythmias 427.89 ; Essential hypertension, benign 401.1 ; Nondependent tobacco use disorder 305.1 ; Unspecified hereditary and idiopathic peripheral neuropathy 356.9 ; Diabetes mellitus without mention of complication, type II or unspecified type, not stated as uncontrolled 250.00 ; CAD (coronary artery disease) 414.00 ; Insomnia 780.52 and Depression [address] [address] Jul, [facility] [address] [id number] [address] [place] [address], [place] [address] Jul, [facility] [address] [id number] [address] [place] [address], [place] [address] May, [facility] [address] [id number] [address] [place] [address], [place] [address] May, [facility] [address] [id number] [address] [place] [address], [place] [address] May, [facility] [address] [id number] [address] [place] [address], [place] [address] Apr, [facility] [address] [id number] [address] [place] [address] Apr, Skin lesion of face 709.9 an d Anxiety 300.00 [facility] [place] [address] [id number] [address] [place] [address], [place] [address] March, [facility] [address] [id number] [address] [place] [address] Feb, [facility] [address] [id number] [address] [place] [address], [place] [address] Feb, [facility] [address] [id number] [address] [place] [address], [place] [address] Jan, [facility] [address] [id number] [address] [place] [address], [place] [address] Jan, [facility] [address] [id number] [address] [place] [address] Jan, [facility] [address] [id number] [address] [place] [address] Jan, [facility] [address] [id number] [address] [place] [address] Jan, [facility] [address] [id number] [address] [place] [address] Jan, [facility] [address] [id number] [address] [place] [address], [place] [address] Dec, [facility] [address] [id number] [address] [place] [address], [place] [address] Dec, [facility] [address] [id number] [address] [place] [address], [place] [address] Nov, [facility] [address] [id number] [address] [place] [address], [place] [address] Nov, [facility] [address] [id number] [address] [place] [address], [place] [address] Oct, [facility] [address] [id number] [address] [place] [address], [place] [address] Oct, [facility] [address] [id number] [address] [place] [address], [place] [address] Oct, [facility] [address] [id number] [address] [place] [address], [place] [address] Oct, [facility] [address] [id number] [address] [place] [address], [place] [address] Sep, [facility] [address] [id number] [address] [place] [address], [place] [address] Sep, [facility] [address] [id number] [address] [place] [address], [place] [address] Sep, [facility] [address] [id number] [address] [place] [address], [place] [address] Sep, [facility] [address] [id number] [address] [place] [address], [place] [address] Sep, [facility] [address] [id number] [address] [place] [address], [place] [address] Sep, [facility] [address] [id number] [address] [place] [address], [place] [address] Aug, [facility] [address] [id number] [address] [place] [address], [place] [address] Aug, [facility] [address] [id number] [address] [place] [address], [place] [address] Aug, [facility] [address] [id number] [address] [place] [address], [place] [address] Aug, [facility] [address] [id number] [address] [place] [address], [place] [address] Aug, [facility] [address] [id number] [address] [place] [address], [place] [address] Aug, [facility] [address] [id number] [address] [place] [address], [place] [address] Aug, [facility] [address] [id number] [address] [place] [address], [place] [address] Aug, [facility] [address] [id number] [address] [place] [address], [place] [address] Aug, [facility] [address] [id number] [address] [place] [address], [place] [address] Aug, [facility] [address] [id number] [address] [place] [address], [place] [address] Jul, [facility] [address] [id number] [address] [place] [address], [place] [address] Jul, [facility] [address] [id number] [address] [place] [address], [place] [address] May, [facility] [address] [id number] [address] [place] [address], [place] [address] May, [facility] [address] [id number] [address] [place] [address], [place] [address] May, [facility] [address] [id number] [address] [place] [address], [place] [address] May, [facility] [address] [id number] [address] [place] [address], [place] [address] May, [facility] [address] [id number] [address] [place] [address], [place] [address] May, [facility] [address] [id number] [address] [place] [address], [place] [address] Apr, [facility] [address] [id number] [address] [place] [address], [place] [address] Apr, [facility] [address] [id number] [address] [place] [address], [place] [address] Apr, [facility] [address] [id number] [address] [place] [address], [place] [address] Apr, [facility] [address] [id number] [address] [place] [address], [place] [address] March, [facility] [address] [id number] [address] [place] [address], [place] [address] March, [facility] [address] [id number] [address] [place] [address], [place] [address] Feb, [facility] [address] [id number] [address] [place] [address], [place] [address] Feb, [facility] [address] [id number] [address] [place] [address], [place] [address] Jan, [facility] [address] [id number] [address] [place] [address], [place] [address] Jan, [facility] [address] [id number] [address] [place] [address], [place] [address] Nov, [facility] [address] [id number] [address] [place] [address], [place] [address] Nov, [facility] [address] [id number] [address] [place] [address], [place] [address] Nov, [facility] [address] [id number] [address] [place] [address], [place] [address] Nov, [facility] [address] [id number] [address] [place] [address], [place] [address] Nov, [facility] [address] [id number] [address] [place] [address], [place] [address] Nov, [facility] [address] [id number] [address] [place] [address], [place] [address] Oct, [facility] [address] [id number] [address] [place] [address], [place] [address] Oct, [facility] [address] [id number] [address] [place] [address], [place] [address] Aug, [facility] [address] [id number] [address] [place] [address], [place] [address] Aug, [facility] [address] [id number] [address] [place] [address], [place] [address] Jul, [facility] [address] [id number] [address] [place] [address], [place] [address] Jun, [facility] [address] [id number] [address] [place] [address], [place] [address] Jun, [facility] [address] [id number] [address] [place] [address], [place] [address] Jun, [facility] [address] [id number] [address] [place] [address], [place] [id number] Jun, [facility] [address] [id number] [address] [place] [address], [place] [id number] Jun, [facility] [address] [id number] [address] [place] [address], [place] [id number] Jun, [facility] [address] [id number] [address] [place] [address], [place] [id number] May, [facility] [address] [id number] [address] [place] [address], [place] [address] March, [facility] [address] [id number] [address] [place] [address], [place] [address] March, [facility] [address] [id number] [address] [place] [address], [place] [address] Jan, IMMUNIZATIONS No Known Immunizations SOCIAL HISTORY Never Assessed REASON FOR VISIT PLAN OF CARE VITAL SIGNS Blood pressure systolic 130 mmHg 2015-02-07 Blood pressure diastolic 82 mmHg 2015-02-07 MEDICATIONS Unknown Medications RESULTS No Results PROCEDURES Procedure Date Ordered Result Body Site DEBRIDE NAIL, 1-5 February 07, 2015 INSTRUCTIONS MEDICATIONS ADMINISTERED No Known Medications MEDICAL [...] cyst Hospitalization History surgery Hospitalization History [facility]- Right Leg Pain 09/21/2017 Hospitalization History [facility]- Severe Dehydr ation with Acute Renal Failure 05/06/2018 Hospitalization History Back surgery to remove cyst/ infecti on
--- OUTSIDE RECORDS SUMMARY | 2020-03-23 00:59 | XMS REPORT ---
Author Author Zoran PALMER Organization [facility] Address [address] [place] [address] Care Team Providers Care Security System Sales Consultant Name Role Phone PALMERJOSE ANGELY Unavailable PROBLEMS Type Condition ICD9-CM Code LAD20-RA Code Onset Dates Condition S tatus SNOMED Code Problem Cervical stenosis of spine M48.02 Act cynthia 08696342 Problem Hypercholesterolemia E78.0 Active 56831066 Problem Parkinsons disease G20 Active 4 4431984 Problem Generalized anxiety disorder F41.1 A ctive 40442646 Problem Panic F41.0 Active 81305587 Problem Lumbar spondylosis M47.816 Active 2 10592669 Problem 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 Active 310342260 Problem Recurrent major depressive disorder, in full remission F33.42 Active 016443611 Problem Cannabis abuse F12.10 Active 92130 009 Problem HTN (hypertension) I10 Active 3 1019804 Problem Cervicalgia M54.2 Active 78968962 0647376 Problem Atherosclerotic heart diseas e of [place] coronary artery without angina pectoris I25.10 Active 993626085 Problem Type 2 diabetes mellitus with other specified complication E11.69 Active 5896367 Problem Other chronic pain G89.29 Active 8 7059122 ALLERGIES No Information ENCOUNTERS Encounter Location Date Diagnosis [facility] [address] [facility] [id number] [address] [place] [address] Nov, [facility] [address] [facility] [id number] [address] [place] [address] Nov, [facility] [address] [facility] [id number] [address] [place] [address] Oct, Generalized anxiety disorder F41.1 and Panic F41.0 [facility] [address] [facility] [id number] [address] [place] [address] Oct, Generalized anxiety disorder F41.1 and Panic F41.0 [place] [address] [facility] [id number] [address] [place] [address] Aug, Cervicalgia M54.2 [place] [address] [facility] [id number] [address] [place] [address] Aug, Type 2 diabetes mellitus wit h other specified complication E11.69 ; HTN (hypertension) I10 ; Parkinsons disease G20 ; Atherosclerotic heart disease of [place] coronary artery without angina pectoris I25.10 ; Hypercholesterolemia E78.0 and Cervical stenosis of spine M48.02 [place] [address] [place] [address] Aug, Type 2 diabetes mellitus wit h other specified complication E11.69 [place] [address] [facility] [id number] [address] [place] [address] May, [place] [address] [address] Apr, [place] [address] [place] [id number] [address] [place] [address] Apr, Dehydration E86.0 ; Acute re nal failure, unspecified acute renal failure type N17.9 ; Cannabis abuse F12.10 ; Type 2 diabetes mellitus with other specified complication E11.69 ; HTN (hypertension) I10 ; Parkinsons disease G20 ; Hypercholesterolemia E78.0 ; Atherosclerotic heart disease of [place] coronary artery without angina pectoris I25.10 ; Cervicalgia M54.2 ; Need for hepatitis C screening test Z11.59 and Recurrent major depressive disorder, in full remission F33.42 [place] [address] [place] [id number] [address] [place] [address] Apr, [address] [address] Apr, Dehydration E86.0 ; Hypotens ion, unspecified hypotension type I95.9 ; Fall, initial encounter W19.XXXA ; Acute head injury without loss of consciousness, initial encounter S09.90XA ; Type 2 diabetes mellitus with other specified complication E11.69 ; HTN (hypertension) I10 and Parkinsons disease G20 [facility] [address] [id number] [address] [place] [address] 14 Apr, 2018 [facility] [address] [id number] [address] [place] [address] Apr, [facility] [address] [id number] [address] [place] [address] Feb, Cervicalgia M54.2 [facility] [address] [id number] [address] [place] [address] Feb, Cervical stenosis of spine M 48.02 [facility] [address] [id number] [address] [place] [address] Jan, Cervicalgia M54.2 [facility] [address] [facility] [id number] [address] [place] [address] Jan, Acute right-sided low back p ain with right-sided sciatica M54.41 [facility] [address] [id number] [address] [place] [address] Dec, Cervicalgia M54.2 [facility] [address] [id number] [address] [place] [address] Dec, Controlled substance agreeme nt signed Z79.899 [facility] [address] [id number] [address] [place] [address] Oct, Cervicalgia M54.2 [facility] [address] [id number] [address] [place] [address] Oct, Acute right-sided low back p ain with right-sided sciatica M54.41 [facility] [address] [id number] [address] [place] [address] Oct, [facility] [address] [id number] [address] [place] [address] Sep, Cervicalgia M54.2 [facility] [address] [id number] [address] [place] [address] 14 Sep, 2017 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 [place] [address] [facility] [id number] [address] [place] [address] 13 Sep, 2017 Lumbar back pain with radicu lopathy affecting right lower extremity M54.17 [place] [address] [facility] [id number] [address] [place] [address] 03 Sep, 2017 Acute right-sided low back p ain with right-sided sciatica M54.41 [place] [address] [facility] [id number] [address] [place] [address] Aug, Type 2 diabetes mellitus wit h other specified complication E11.69 ; HTN (hypertension) I10 ; Cervicalgia M54.2 ; Cervical stenosis of spine M48.02 ; Acute right hip pain M25.551 ; Atherosclerotic heart disease of [place] coronary artery without angina pectoris I25.10 ; Hypercholesterolemia E78.0 ; Parkinsons disease G20 and Depression F32.9 [place] [address] [facility] [id number] [address] [place] [address] Aug, Other chronic pain G89.29 [place] [address] [facility] [id number] [address] [place] [address] Jul, Other chronic pain G89.29 [place] [address] [facility] [id number] [address] [place] [address] Jul, [facility] [address] [facility] [id number] [address] [place] [address] Jul, Cough R05 and Bronchitis J40 [place] [address] [id number] [address] [place] [address] Jun, Other chronic pain G89.29 [facility] [address] [facility] [id number] [address] [place] [address] Jun, [place] [address] [facility] [id number] [address] [place] [address] Jun, Atherosclerotic heart diseas e of [place] coronary artery without angina pectoris I25.10 and Cervicalgia M54.2 [facility] [address] [id number] [address] [place] [address] Jun, Cervicalgia M54.2 [facility] [address] [id number] [address] [place] [address] May, Other chronic pain G89.29 [facility] [address] [id number] [address] [place] [address] May, [facility] [address] [id number] [address] [place] [address] May, [facility] [address] [id number] [address] [place] [address] May, [facility] [address] [facility] [id number] [address] [place] [address] May, [facility] [address] [facility] [id number] [address] [place] [address] May, Type 2 diabetes mellitus wit h other specified complication E11.69 ; HTN (hypertension) I10 ; Atherosclerotic heart disease of [place] coronary artery without angina pectoris I25.10 ; Parkinsons disease G20 and Cervical stenosis of spine M48.02 [facility] [address] [facility] [id number] [address] [place] [address] Apr, Cervicalgia M54.2 [facility] [address] [facility] [id number] [address] [place] [address] Apr, Type 2 diabetes mellitus wit h other specified complication E11.69 ; HTN (hypertension) I10 ; Depression F32.9 ; Atherosclerotic heart disease of [place] coronary artery without angina pectoris I25.10 ; Coronary atherosclerosis due to lipid rich plaque I25.83 ; Cervicalgia M54.2 ; Parkinsons disease G20 ; Chronic diarrhea K52.9 and Pure hypercholesterolemia E78.00 [facility] [address] [facility] [id number] [address] [place] [address] March, Other chronic pain G89.29 [facility] [address] [facility] [id number] [address] [place] [address] March, Other chronic pain G89.29 [facility] [address] [facility] [id number] [address] [place] [address] Feb, Cervical stenosis of spine M 48.02 [facility] [address] [facility] [id number] [address] [place] [address] Feb, Other chronic pain G89.29 [facility] [address] [facility] [id number] [address] [place] [address] Jan, [facility] [address] [facility] [id number] [address] [place] [address] Jan, Other chronic pain G89.29 [facility] [address] [facility] [id number] [address] [place] [address] Jan, Other chronic pain G89.29 [facility] [address] [facility] [id number] [address] [place] [address] Jan, Type 2 diabetes mellitus wit h other specified complication E11.69 ; Atherosclerotic heart disease of [place] coronary artery without angina pectoris I25.10 ; Anxiety F41.9 ; HTN (hypertension) I10 ; Depression F32.9 ; Coronary atherosclerosis due to lipid rich plaque I25.83 ; Cervicalgia M54.2 ; Other chronic pain G89.29 and Functional 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 [facility] [address] [facility] [id number] [address] [place] [address] Nov, HTN (hypertension) I10 [facility] [address] [facility] [id number] [address] [place] [address] 03 Nov, 2016 Type 2 diabetes mellitus wit h other specified complication E11.69 ; Atherosclerotic heart disease of [place] coronary artery without angina pectoris I25.10 ; Hypercholesterolemia E78.0 ; Anxiety F41.9 ; Depression F32.9 ; Cervicalgia M54.2 and Functional 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 [facility] [address] [facility] [id number] [address] [place] [address] Oct, [place] [address] [id number] [address] [place] [address] Oct, Neck pain M54.2 [facility] [address] [id number] [address] [place] [address] Sep, [facility] [address] [id number] [address] [place] [address] Aug, [facility] [address] [id number] [address] [place] [address] Aug, [facility] [address] [id number] [address] [place] [address] Jul, Visit for TB skin test Z11.1 and Screening for tuberculosis Z11.1 [facility] [address] [id number] [address] [place] [address] May, [facility] [address] [id number] [address] [place] [address] May, Neck pain M54.2 [facility] [address] [id number] [address] [place] [address] May, [facility] [address] [id number] [address] [place] [address] Apr, Neck pain M54.2 [facility] [address] [id number] [address] [place] [address] Feb, Neck pain M54.2 [facility] [address] [id number] [address] [place] [phone] 06 Feb, 2016 [facility] [address] [id number] [address] [place] [address] 30 Jan, 2016 Neck pain M54.2 [facility] [address] [id number] [address] [place] [address] 17 Jan, 2016 [facility] [address] [id number] [address] [place] [address] 16 Jan, 2016 Neck pain M54.[address] [id number] Jan, Neck pain M54.2 ; Type 2 sarath betes mellitus with other specified complication E11.69 ; CAD (coronary artery disease) 414.00 ; Insomnia 780.52 ; Anxiety F41.9 ; Depression F32.9 ; Pre-ulcerative calluses L84 and Hypercholesterolemia E78.[address] [address] Nov, [address] [address] Nov, Type 2 diabetes mellitus wit h other specified complication E11.69 ; Pre-ulcerative calluses L84 ; HTN (hypertension) I10 ; Hypercholesterolemia E78.0 ; Anxiety F41.9 ; Depression F32.9 ; Environmental allergies Z91.09 and Osteoarthritis M19.[address] [phone] Sep, [address] [address] Aug, Allergic rhinitis, seasonal J30.[address] [address] Jul, [address] [address] Jul, Other specified cardiac dysr hythmias 427.89 ; Essential hypertension, benign 401.1 ; Nondependent tobacco use disorder 305.1 ; Unspecified hereditary and idiopathic peripheral neuropathy 356.9 ; Diabetes mellitus without mention of complication, type II or unspecified type, not stated as uncontrolled 250.00 ; CAD (coronary artery disease) 414.00 ; Insomnia 780.52 and Depression [address] [address] 14 Jul, [address] [address] Jul, [address] [id number] [address] [place] [address] May, [facility] [address] [id number] [address] [place] [address] May, [facility] [address] [id number] [address] [place] [address] May, [facility] [address] [id number] [address] [place] [address] Apr, [facility] [address] [id number] [address] [place] [address] Apr, Skin lesion of face 709.9 an d Anxiety 300.00 [facility] [address] [id number] [address] [place] [address] March, [facility] [address] [id number] [address] [place] [address] Feb, [facility] [address] [id number] [address] [place] [address] Feb, [facility] [address] [id number] [address] [place] [address] Jan, [facility] [address] [id number] [address] [place] [address] Jan, [facility] [address] [id number] [address] [place] [address] Jan, [facility] [address] [id number] [address] [place] [address] Jan, [facility] [address] [id number] [address] [place] [address] Jan, [facility] [address] [id number] [address] [place] [address] Jan, [facility] [address] [id number] [address] [place] [address] Dec, [facility] [address] [id number] [address] [place] [address], [place] [address] Dec, [facility] [address] [id number] [address] [place] [address], [place] [address] Nov, [facility] [address] [id number] [address] [place] [address], [place] [address] Nov, [facility] [address] [id number] [address] [place] [address], [place] [address] Oct, [facility] [address] [id number] [address] [place] [address], [place] [address] Oct, [facility] [address] [id number] [address] [place] [address], [place] [address] Oct, [facility] [address] [id number] [address] [place] [address], [place] [address] Oct, [facility] [address] [id number] [address] [place] [address], [place] [address] Sep, [facility] [address] [id number] [address] [place] [address], [place] [address] Sep, [facility] [address] [id number] [address] [place] [address], [place] [address] Sep, [facility] [address] [id number] [address] [place] [address], [place] [address] Sep, [facility] [address] [id number] [address] [place] [address], [place] [address] Sep, [facility] [address] [id number] [address] [place] [address], [place] [address] Sep, [facility] [address] [id number] [address] [place] [address], [place] [address] Aug, [facility] [address] [id number] [address] [place] [address], [place] [address] Aug, [facility] [address] [id number] [address] [place] [address], [place] [address] Aug, [facility] [address] [id number] [address] [place] [address], [place] [address] Aug, [facility] [address] [id number] [address] [place] [address], [place] [address] Aug, [facility] [address] [id number] [address] [place] [address], [place] [address] Aug, [facility] [address] [id number] [address] [place] [address], [place] [address] Aug, [facility] [address] [id number] [address] [place] [address], [place] [address] Aug, [facility] [address] [id number] [address] [place] [address], [place] [address] Aug, [facility] [address] [id number] [address] [place] [address], [place] [address] Aug, [facility] [address] [id number] [address] [place] [address], [place] [address] Jul, [facility] [address] [id number] [address] [place] [address], [place] [address] Jul, [facility] [address] [id number] [address] [place] [address], [place] [address] May, [facility] [address] [id number] [address] [place] [address], [place] [address] May, [facility] [address] [id number] [address] [place] [address], [place] [address] May, [facility] [address] [id number] [address] [place] [address], [place] [address] May, [facility] [address] [id number] [address] [place] [address], [place] [address] May, [facility] [address] [id number] [address] [place] [address], [place] [address] May, [facility] [address] [id number] [address] [place] [address], [place] [address] Apr, [facility] [address] [id number] [address] [place] [address], [place] [address] Apr, [facility] [address] [id number] [address] [place] [address], [place] [address] Apr, [facility] [address] [id number] [address] [place] [address], [place] [address] Apr, [facility] [address] [id number] [address] [place] [address], [place] [address] March, [facility] [address] [id number] [address] [place] [address], [place] [address] March, [facility] [address] [id number] [address] [place] [address], [place] [address] Feb, [facility] [address] [id number] [address] [place] [address], [place] [address] Feb, [facility] [address] [id number] [address] [place] [address], [place] [address] Jan, [facility] [address] [id number] [address] [place] [address], [place] [address] Jan, [facility] [address] [id number] [address] [place] [address], [place] [address] Nov, [facility] [address] [id number] [address] [place] [address], [place] [address] Nov, [facility] [address] [id number] [address] [place] [address], [place] [address] Nov, [facility] [address] [id number] [address] [place] [address], [place] [address] Nov, [facility] [address] [id number] [address] [place] [address], [place] [address] Nov, [facility] [address] [id number] [address] [place] [address], [place] [address] Nov, [facility] [address] [id number] [address] [place] [phone] Oct, [facility] [address] [id number] [address] [place] [phone] Oct, [facility] [address] [id number] [address] [place] [phone] Aug, [facility] [address] [id number] [address] [place] [phone] Aug, [facility] [address] [id number] [address] [place] [phone] Jul, [facility] [address] [id number] [address] [place] [phone] Jun, [facility] [address] [id number] [address] [place] [phone] Jun, [facility] [address] [id number] [address] [place] [phone] Jun, [facility] [address] [id number] [address] [place] [phone] Jun, [facility] [address] [id number] [address] [place] [phone] Jun, [facility] [address] [id number] [address] [place] [phone] Jun, [facility] [address] [id number] [address] [place] [phone] May, [facility] [address] [id number] [address] [place] [phone] March, [facility] [address] [id number] [address] [place] [phone] March, [facility] [address] [id number] [address] [place] [phone] Jan, IMMUNIZATIONS No Known Immunizations SOCIAL HISTORY Never Assessed REASON FOR VISIT Crisis- Intake PLAN OF CARE Activity Details Follow Up Next available Reason: VITAL SIGNS MEDICATIONS Unknown Medications RESULTS No Results PROCEDURES Procedure Date Ordered Result Body Site Psych diagnostic evaluation, established patient Nov 08, 2018 INSTRUCTIONS MEDICATIONS ADMINISTERED No Known Medications MEDICAL [...] cyst Hospitalization History surgery Hospitalization [facility]- Right Leg Pain 09/21/2017 Hospitalization History [facility]- Severe Dehydr ation with Acute Renal Failure 05/06/2018 Hospitalization History Back surgery to remove cyst/ infecti on
--- OUTSIDE RECORDS SUMMARY | 2020-03-23 00:59 | XMS REPORT ---
Author Author Zoran Ahuja Doctor Organization [facility] Address Unknown Phone Unavailable Care Team Providers Care Well Tender Name Role Phone Migration, Doctor Unavailable Unavailable PROBLEMS Type Condition ICD9-CM Code MFW59-NI Code Onset Dates Condition S tatus SNOMED Code Problem Type 2 diabetes mellitus with other specified complication E11.69 Active 9478952 Problem Cervicalgia M54.2 Active 70723859 [id number] Problem HTN (hypertension) I10 Active 3 2145086 Problem Cervical stenosis of spine M48.02 Act cynthia 30322765 Problem Parkinsons disease G20 Active 4 8255318 Problem Hypercholesterolemia E78.0 Active 49276559 Problem Panic F41.0 Active 59917783 Problem Other chronic pain G89.29 Active 8 5031217 Problem Generalized anxiety disorder F41.1 A ctive 83466210 Problem Atherosclerotic heart diseas e of [place] coronary artery without angina pectoris I25.10 Active 664206527 Problem 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 Active 468285982 Problem Lumbar spondylosis M47.816 Active 2 14357907 Problem Cannabis abuse F12.10 Active 14657 009 Problem Recurrent major depressive disorder, in full remission F33.42 Active 155973325 ALLERGIES No Information ENCOUNTERS Encounter Location Date Diagnosis [facility] [address] [facility] [id number] [address] [place] [id number] Apr, [facility] [address] [facility] [id number] [address] [place] [address] March, [address] [address] Jan, [facility] [address] [facility] [id number] [address] [place] [address] Dec, Hypercholesterolemia E78.0 [facility] [address] [facility] [id number] [address] [place] [address] Nov, HTN (hypertension) I10 [facility] [address] [place] [id number] [address] [place] [address] Oct, Generalized anxiety disorder F41.1 and Panic F41.0 [place] [address] [place] [id number] [place] [address] Oct, Generalized anxiety disorder F41.1 and Panic F41.0 [place] [address] [place] [id number] [place] [address] Aug, Cervicalgia M54.2 [place] [address] [place] [id number] [place] [address] Aug, Type 2 diabetes mellitus wit h other specified complication E11.69 ; HTN (hypertension) I10 ; Parkinsons disease G20 ; Atherosclerotic heart disease of [place] coronary artery without angina pectoris I25.10 ; Hypercholesterolemia E78.0 and Cervical stenosis of spine M48.[address] [address] Aug, Type 2 diabetes mellitus wit h other specified complication E11.69 [place] [address] [place] [id number] [place] [address] May, [place] [address] [address] Apr, [place] [address] [address] Apr, Dehydration E86.0 ; Acute re nal failure, unspecified acute renal failure type N17.9 ; Cannabis abuse F12.10 ; Type 2 diabetes mellitus with other specified complication E11.69 ; HTN (hypertension) I10 ; Parkinsons disease G20 ; Hypercholesterolemia E78.0 ; Atherosclerotic heart disease of [place] coronary artery without angina pectoris I25.10 ; Cervicalgia M54.2 ; Need for hepatitis C screening test Z11.59 and Recurrent major depressive disorder, in full remission F33.42 [place] [address] [place] [id number] [address] [place] [address] Apr, [place] [address] [place] [id number] [place] [address] 14 Apr, 2018 Dehydration E86.0 ; Hypotens ion, unspecified hypotension type I95.9 ; Fall, initial encounter W19.XXXA ; Acute head injury without loss of consciousness, initial encounter S09.90XA ; Type 2 diabetes mellitus with other specified complication E11.69 ; HTN (hypertension) I10 and Parkinsons disease G20 [place] [address] [place] [address] 14 Apr, 2018 [place] [address] [place] [id number] [place] [address] 12 Apr, 2018 [place] [address] [address] Feb, Cervicalgia M54.2 [place] [address] [place] [id number] [place] [address] Feb, Cervical stenosis of spine M 48.02 [place] [address] [place] [id number] [address] [place] [address] Jan, Cervicalgia M54.2 [place] [address] [address] Jan, Acute right-sided low back p ain with right-sided sciatica M54.41 [place] [address] [address] Dec, Cervicalgia M54.2 [place] [address] [place] [id number] [address] [place] [address] Dec, Controlled substance agreeme nt signed Z79.899 [place] [address] [place] [id number] [address] [place] [address] Oct, Cervicalgia M54.2 [place] [address] [place] [id number] [place] [address] Oct, Acute right-sided low back p ain with right-sided sciatica M54.41 [place] [address] [place] [address] [place] [address] 04 Oct, 2017 [facility] [address] [place] [address] Sep, Cervicalgia M54.2 [place] [address] [place] [id number] [place] [address] 14 Sep, 2017 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 [place] [address] [address] 13 Sep, 2017 Lumbar back pain with radicu lopathy affecting right lower extremity M54.17 [place] [address] [address] 03 Sep, 2017 Acute right-sided low back p ain with right-sided sciatica M54.41 [place] [address] [address] Aug, Type 2 diabetes mellitus wit h other specified complication E11.69 ; HTN (hypertension) I10 ; Cervicalgia M54.2 ; Cervical stenosis of spine M48.02 ; Acute right hip pain M25.551 ; Atherosclerotic heart disease of [place] coronary artery without angina pectoris I25.10 ; Hypercholesterolemia E78.0 ; Parkinsons disease G20 and Depression F32.9 [place] [id number] [address] Aug, Other chronic pain G89.29 [place] [address] [address] Jul, Other chronic pain G89.29 [facility] [address] [address] Jul, [facility] [address] [place] [id number] [place] [address] Jul, Cough R05 and Bronchitis J40 [facility] [address] [address] Jun, Other chronic pain G89.29 [facility] [address] [id number] [address] [place] [address] Jun, [facility] [address] [id number] [address] [place] [address] Jun, Atherosclerotic heart diseas e of [place] coronary artery without angina pectoris I25.10 and Cervicalgia M54.2 [facility] [address] [id number] [address] [place] [address] Jun, Cervicalgia M54.2 [facility] [address] [id number] [address] [place] [address] May, Other chronic pain G89.29 [facility] [address] [id number] [address] [place] [address] May, [facility] [address] [id number] [address] [place] [address] May, [facility] [address] [id number] [address] [place] [address] May, [facility] [address] [id number] [address] [place] [address] May, [facility] [address] [id number] [address] [place] [address] May, Type 2 diabetes mellitus wit h other specified complication E11.69 ; HTN (hypertension) I10 ; Atherosclerotic heart disease of [place] coronary artery without angina pectoris I25.10 ; Parkinsons disease G20 and Cervical stenosis of spine M48.02 [facility] [address] [id number] [address] [place] [address] Apr, Cervicalgia M54.2 [facility] [address] [id number] [address] [place] [address] Apr, Type 2 diabetes mellitus wit h other specified complication E11.69 ; HTN (hypertension) I10 ; Depression F32.9 ; Atherosclerotic heart disease of [place] coronary artery without angina pectoris I25.10 ; Coronary atherosclerosis due to lipid rich plaque I25.83 ; Cervicalgia M54.2 ; Parkinsons disease G20 ; Chronic diarrhea K52.9 and Pure hypercholesterolemia E78.00 [facility] [address] [id number] [address] [place] [address] March, Other chronic pain G89.29 [facility] [address] [id number] [address] [place] [address] March, Other chronic pain G89.29 [facility] [address] [id number] [address] [place] [address] Feb, Cervical stenosis of spine M 48.02 [facility] [address] [id number] [address] [place] [address] Feb, Other chronic pain G89.29 [place] [address] [id number] [address] [place] [address] Jan, [facility] [address] [facility] [id number] [address] [place] [address] Jan, Other chronic pain G89.29 [facility] [address] [id number] [address] [place] [address] Jan, Other chronic pain G89.29 [facility] [address] [facility] [id number] [address] [place] [address] Jan, Type 2 diabetes mellitus wit h other specified complication E11.69 ; Atherosclerotic heart disease of [place] coronary artery without angina pectoris I25.10 ; Anxiety F41.9 ; HTN (hypertension) I10 ; Depression F32.9 ; Coronary atherosclerosis due to lipid rich plaque I25.83 ; Cervicalgia M54.2 ; Other chronic pain G89.29 and Functional 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 [facility] [address] [facility] [id number] [address] [place] [address] Nov, HTN (hypertension) I10 [facility] [address] [facility] [id number] [address] [place] [address] Nov, Type 2 diabetes mellitus wit h other specified complication E11.69 ; Atherosclerotic heart disease of [place] coronary artery without angina pectoris I25.10 ; Hypercholesterolemia E78.0 ; Anxiety F41.9 ; Depression F32.9 ; Cervicalgia M54.2 and Functional 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 [facility] [address] [id number] [address] [place] [address] Oct, [facility] [address] [facility] [id number] [address] [place] [address] Oct, Neck pain M54.2 [facility] [address] [facility] [id number] [address] [place] [address] Sep, [facility] [address] [id number] [address] [place] [address] Aug, [facility] [address] [facility] [id number] [address] [place] [address] Aug, [facility] [address] [facility] [id number] [address] [place] [address] Jul, Visit for TB skin test Z11.1 and Screening for tuberculosis Z11.1 [facility] [address] [facility] [id number] [address] [place] [address] May, [facility] [address] [facility] [id number] [address] [place] [address] May, Neck pain M54.2 [facility] [address] [facility] [id number] [address] [place] [address] May, [facility] [address] [facility] [id number] [address] [place] [address] Apr, Neck pain M54.2 [facility] [address] [facility] [id number] [address] [place] [address] Feb, Neck pain M54.2 [facility] [address] [facility] [id number] [address] [place] [address] Feb, [facility] [address] [facility] [id number] [address] [place] [address] Jan, Neck pain M54.2 [place] [address] [address] Jan, [place] [address] [address] Jan, Neck pain M54.2 [place] [address] [address] Jan, Neck pain M54.2 ; Type 2 sarath betes mellitus with other specified complication E11.69 ; CAD (coronary artery disease) 414.00 ; Insomnia 780.52 ; Anxiety F41.9 ; Depression F32.9 ; Pre-ulcerative calluses L84 and Hypercholesterolemia E78.0 [place] [address] [address] Nov, [place] [address] [address] Nov, Type 2 diabetes mellitus wit h other specified complication E11.69 ; Pre-ulcerative calluses L84 ; HTN (hypertension) I10 ; Hypercholesterolemia E78.0 ; Anxiety F41.9 ; Depression F32.9 ; Environmental allergies Z91.09 and Osteoarthritis M19.90 [place] [address] [address] Sep, [place] [address] [address] Aug, Allergic rhinitis, seasonal J30.2 [place] [address] [address] Jul, [address] [address] Jul, Other specified cardiac dysr hythmias 427.89 ; Essential hypertension, benign 401.1 ; Nondependent tobacco use disorder 305.1 ; Unspecified hereditary and idiopathic peripheral neuropathy 356.9 ; Diabetes mellitus without mention of complication, type II or unspecified type, not stated as uncontrolled 250.00 ; CAD (coronary artery disease) 414.00 ; Insomnia 780.52 and Depression 311 [facility] [address] [id number] [address] [place] [address], [place] [address] 14 Jul, 2015 [facility] [address] [id number] [address] [place] [address], [place] [address] Jul, [facility] [address] [id number] [address] [place] [address], [place] [address] May, [facility] [address] [id number] [address] [place] [address], [place] [address] May, [facility] [address] [id number] [address] [place] [address], [place] [address] May, [facility] [address] [id number] [address] [place] [address] Apr, [facility] [address] [id number] [address] [place] [address] Apr, Skin lesion of face 709.9 an d Anxiety 300.00 [facility] [address] [id number] [address] [place] [address], [place] [address] March, [facility] [address] [id number] [address] [place] [address] Feb, [facility] [address] [id number] [address] [place] [address] Feb, [facility] [address] [id number] [address] [place] [address] Jan, [facility] [address] [id number] [address] [place] [address] Jan, [facility] [address] [id number] [address] [place] [address] Jan, [facility] [address] [id number] [address] [place] [address] Jan, [facility] [address] [id number] [address] [place] [address] Jan, [facility] [place] [facility] [address] [id number] [address] [place] [address], [place] [address] Jan, [facility] [address] [id number] [address] [place] [address], [place] [address] Dec, [facility] [address] [id number] [address] [place] [address], [place] [address] Dec, [facility] [address] [id number] [address] [place] [address], [place] [address] Nov, [facility] [address] [id number] [address] [place] [address], [place] [address] Nov, [facility] [address] [id number] [address] [place] [address], [place] [address] Oct, [facility] [address] [id number] [address] [place] [address], [place] [address] Oct, [facility] [address] [id number] [address] [place] [address], [place] [address] Oct, [facility] [address] [id number] [address] [place] [address], [place] [address] Oct, [facility] [address] [id number] [address] [place] [address], [place] [address] Sep, [facility] [address] [id number] [address] [place] [address], [place] [address] Sep, [facility] [address] [id number] [address] [place] [address], [place] [address] Sep, [facility] [address] [id number] [address] [place] [address], [place] [address] Sep, [facility] [address] [id number] [address] [place] [address], [place] [address] Sep, [facility] [address] [id number] [address] [place] [address], [place] [address] Sep, [facility] [address] [id number] [address] [place] [address], [place] [address] Aug, [facility] [place] [facility] [address] [id number] [address] [place] [address], [place] [address] Aug, [facility] [place] [facility] [address] [id number] [address] [place] [address], [place] [address] Aug, [facility] [place] [facility] [address] [id number] [address] [place] [address], [place] [address] Aug, [facility] [place] [facility] [address] [id number] [address] [place] [address], [place] [address] Aug, [facility] [place] [facility] [address] [id number] [address] [place] [address], [place] [address] Aug, [facility] [place] [facility] [address] [id number] [address] [place] [address], [place] [address] Aug, [facility] [place] [facility] [address] [id number] [address] [place] [address], [place] [address] Aug, [facility] [place] [facility] [address] [id number] [address] [place] [address], [place] [address] Aug, [facility] [place] [facility] [address] [id number] [address] [place] [address], [place] [address] Aug, [facility] [place] [facility] [address] [id number] [address] [place] [address], [place] [address] Jul, [facility] [place] [facility] [address] [id number] [address] [place] [address], [place] [address] Jul, 2013 [facility] [place] [facility] [address] [id number] [address] [place] [address], [place] [address] May, [facility] [place] [facility] [address] [id number] [address] [place] [address], [place] [address] May, [facility] [place] [facility] [address] [id number] [address] [place] [address], [place] [address] May, [facility] [place] [facility] [address] [id number] [address] [place] [address], [place] [address] May, [facility] [place] [facility] [address] [id number] [address] [place] [address], [place] [address] May, [facility] [address] [id number] [address] [place] [address], [place] [address] May, [facility] [address] [id number] [address] [place] [address], [place] [address] Apr, [facility] [address] [id number] [address] [place] [address], [place] [address] Apr, [facility] [address] [id number] [address] [place] [address], [place] [address] Apr, [facility] [address] [id number] [address] [place] [address], [place] [address] Apr, [facility] [address] [id number] [address] [place] [address], [place] [address] March, [facility] [address] [id number] [address] [place] [address], [place] [address] March, [facility] [address] [id number] [address] [place] [address], [place] [address] Feb, [facility] [address] [id number] [address] [place] [address], [place] [address] Feb, [facility] [address] [id number] [address] [place] [address], [place] [address] Jan, [facility] [address] [id number] [address] [place] [address], [place] [address] Jan, [facility] [address] [id number] [address] [place] [address], [place] [address] Nov, [facility] [address] [id number] [address] [place] [address], [place] [id number] Nov, [facility] [address] [id number] [address] [place] [address], [place] [id number] Nov, [facility] [address] [id number] [address] [place] [address], [place] [id number] Nov, [facility] [address] [id number] [address] [place] [address], [place] [id number] Nov, [facility] [address] [id number] [address] [place] [address], [place] [id number] Nov, [facility] [address] [id number] [address] [place] [address], [place] [id number] Oct, [facility] [address] [id number] [address] [place] [address], [place] [id number] Oct, [facility] [address] [id number] [address] [place] [address], [place] [id number] Aug, [facility] [address] [id number] [address] [place] [address], [place] [id number] Aug, [facility] [address] [id number] [address] [place] [address], [place] [id number] Jul, [facility] [address] [id number] [address] [place] [address], [place] [address] Jun, [facility] [address] [id number] [address] [place] [address], [place] [address] Jun, [facility] [address] [id number] [address] [place] [address], [place] [id number] Jun, [facility] [address] [id number] [address] [place] [address], [place] [address] Jun, [facility] [address] [id number] [address] [place] [address], [place] [id number] Jun, [facility] [address] [id number] [address] [place] [address], [place] [id number] Jun, [facility] [address] [id number] [address] [place] [address], [place] [address] May, [facility] [address] [id number] [address] [place] [address], [place] [id number] March, [facility] [address] [id number] [address] [place] [id number] March, [facility] [address] [facility] [id number] [address] [place] [id number] Jan, IMMUNIZATIONS No Known Immunizations SOCIAL HISTORY Never Assessed REASON FOR VISIT [facility] PLAN OF CARE VITAL SIGNS MEDICATIONS Unknown [...] cyst Hospitalization History surgery Hospitalization History [facility]- Right Leg Pain 09/21/2017 [facility] [facility]- Severe Dehydr ation with Acute Renal Failure 05/06/2018 Hospitalization History Back surgery to remove cyst/ infecti on
--- OUTSIDE RECORDS SUMMARY | 2020-03-23 00:59 | XMS REPORT ---
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 Name Role Phone ANTWON ETIENNEMARS Unavailable PROBLEMS Type Condition ICD9-CM Code CPU03-BE Code Onset Dates Condition S tatus SNOMED Code Problem Type 2 diabetes mellitus with other specified complication E11.69 Active 1295457 Problem Cervicalgia M54.2 Active 10129491 7708549 Problem HTN (hypertension) I10 Active 3 5821932 Problem Cervical stenosis of spine M48.02 Act cynthia 72157326 Problem Parkinsons disease G20 Active 4 8691417 Problem Hypercholesterolemia E78.0 Active 03929069 Problem Panic F41.0 Active 72962231 Problem Other chronic pain G89.29 Active 8 6597492 Problem Generalized anxiety disorder F41.1 A ctive 88506097 Problem Atherosclerotic heart diseas e of [place] coronary artery without angina pectoris I25.10 Active 470444147 Problem 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 Active 117350955 Problem Lumbar spondylosis M47.816 Active 2 13315269 Problem Cannabis abuse F12.10 Active 57265 009 Problem Recurrent major depressive disorder, in full remission F33.42 Active 606579119 ALLERGIES No Information ENCOUNTERS Encounter Location Date Diagnosis [facility] [address] [facility] [id number] [address] [place] [address] March, [address] [address] Jan, [facility] [address] [facility] [id number] [address] [place] [phone] Dec, Hypercholesterolemia E78.0 [facility] [address] [facility] [id number] [address] [place] [address] Nov, HTN (hypertension) I10 [place] [address] [facility] [id number] [address] [place] [address] Oct, Generalized anxiety disorder F41.1 and Panic F41.0 [place] [address] [place] [id number] [place] [phone] Oct, Generalized anxiety disorder F41.1 and Panic F41.0 [place] [address] [place] [id number] [address] [place] [address] Aug, Cervicalgia M54.2 [place] [address] [facility] [id number] [place] [address] Aug, Type 2 diabetes mellitus wit h other specified complication E11.69 ; HTN (hypertension) I10 ; Parkinsons disease G20 ; Atherosclerotic heart disease of [place] coronary artery without angina pectoris I25.10 ; Hypercholesterolemia E78.0 and Cervical stenosis of spine M48.02 [place] [id number] [place] [address] Aug, Type 2 diabetes mellitus wit h other specified complication E11.69 [place] [address] [place] [id number] [address] [place] [phone] May, [place] [address] [place] [id number] [place] [address] Apr, [place] [address] [place] [id number] [place] [address] Apr, Dehydration E86.0 ; Acute re nal failure, unspecified acute renal failure type N17.9 ; Cannabis abuse F12.10 ; Type 2 diabetes mellitus with other specified complication E11.69 ; HTN (hypertension) I10 ; Parkinsons disease G20 ; Hypercholesterolemia E78.0 ; Atherosclerotic heart disease of [place] coronary artery without angina pectoris I25.10 ; Cervicalgia M54.2 ; Need for hepatitis C screening test Z11.59 and Recurrent major depressive disorder, in full remission F33.42 [place] [address] [place] [id number] [address] [place] [address] Apr, [place] [address] [place] [id number] [place] [address] 14 Apr, 2018 Dehydration E86.0 ; Hypotens ion, unspecified hypotension type I95.9 ; Fall, initial encounter W19.XXXA ; Acute head injury without loss of consciousness, initial encounter S09.90XA ; Type 2 diabetes mellitus with other specified complication E11.69 ; HTN (hypertension) I10 and Parkinsons disease G20 [place] [address] [address] 14 Apr, 2018 [place] [address] [address] 12 Apr, 2018 [place] [address] [address] Feb, Cervicalgia M54.2 [place] [address] [address] Feb, Cervical stenosis of spine M 48.02 [place] [address] [address] Jan, Cervicalgia M54.2 [place] [address] [address] Jan, Acute right-sided low back p ain with right-sided sciatica M54.41 [place] [address] [address] Dec, Cervicalgia M54.2 [place] [address] [place] [id number] [address] [place] [address] Dec, Controlled substance agreeme nt signed Z79.899 [place] [address] [address] Oct, Cervicalgia M54.2 [place] [address] [place] [id number] [address] [place] [address] Oct, Acute right-sided low back p ain with right-sided sciatica M54.41 [place] [address] [place] [id number] [address] [place] [id number] 04 Oct, 2017 [facility] [address] [address] 28 Sep, 2017 Cervicalgia M54.2 [place] [address] [place] [id number] [place] [address] 14 Sep, 2017 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 [place] [address] [place] [id number] [place] [address] 13 Sep, 2017 Lumbar back pain with radicu lopathy affecting right lower extremity M54.17 [place] [address] [address] 03 Sep, 2017 Acute right-sided low back p ain with right-sided sciatica M54.41 [place] [address] [address] Aug, Type 2 diabetes mellitus wit h other specified complication E11.69 ; HTN (hypertension) I10 ; Cervicalgia M54.2 ; Cervical stenosis of spine M48.02 ; Acute right hip pain M25.551 ; Atherosclerotic heart disease of [place] coronary artery without angina pectoris I25.10 ; Hypercholesterolemia E78.0 ; Parkinsons disease G20 and Depression F32.9 [place] [address] [address] Aug, Other chronic pain G89.29 [place] [address] [place] [id number] [address] [place] [address] Jul, Other chronic pain G89.29 [facility] [address] [address] Jul, [facility] [address] [place] [id number] [address] [place] [address] Jul, Cough R05 and Bronchitis J40 [facility] [address] [address] Jun, Other chronic pain G89.29 [facility] [address] [id number] [address] [place] [address] Jun, [facility] [address] [id number] [address] [place] [address] Jun, Atherosclerotic heart diseas e of [place] coronary artery without angina pectoris I25.10 and Cervicalgia M54.2 [facility] [address] [id number] [address] [place] [address] Jun, Cervicalgia M54.2 [facility] [address] [id number] [address] [place] [address] May, Other chronic pain G89.29 [facility] [address] [id number] [address] [place] [address] May, [facility] [address] [id number] [address] [place] [address] May, [facility] [address] [id number] [address] [place] [address] May, [facility] [address] [id number] [address] [place] [phone] May, [facility] [address] [id number] [address] [place] [address] May, Type 2 diabetes mellitus wit h other specified complication E11.69 ; HTN (hypertension) I10 ; Atherosclerotic heart disease of [place] coronary artery without angina pectoris I25.10 ; Parkinsons disease G20 and Cervical stenosis of spine M48.02 [facility] [address] [id number] [address] [place] [address] Apr, Cervicalgia M54.2 [facility] [address] [id number] [address] [place] [address] Apr, Type 2 diabetes mellitus wit h other specified complication E11.69 ; HTN (hypertension) I10 ; Depression F32.9 ; Atherosclerotic heart disease of [place] coronary artery without angina pectoris I25.10 ; Coronary atherosclerosis due to lipid rich plaque I25.83 ; Cervicalgia M54.2 ; Parkinsons disease G20 ; Chronic diarrhea K52.9 and Pure hypercholesterolemia E78.00 [facility] [address] [id number] [address] [place] [address] March, Other chronic pain G89.29 [facility] [address] [id number] [address] [place] [address] March, Other chronic pain G89.29 [facility] [address] [id number] [address] [place] [address] Feb, Cervical stenosis of spine M 48.02 [facility] [address] [id number] [address] [place] [address] Feb, Other chronic pain G89.29 [facility] [address] [facility] [id number] [address] [place] [address] Jan, [facility] [address] [facility] [id number] [address] [place] [address] Jan, Other chronic pain G89.29 [facility] [address] [id number] [address] [place] [address] Jan, Other chronic pain G89.29 [facility] [address] [facility] [id number] [address] [place] [address] Jan, Type 2 diabetes mellitus wit h other specified complication E11.69 ; Atherosclerotic heart disease of [place] coronary artery without angina pectoris I25.10 ; Anxiety F41.9 ; HTN (hypertension) I10 ; Depression F32.9 ; Coronary atherosclerosis due to lipid rich plaque I25.83 ; Cervicalgia M54.2 ; Other chronic pain G89.29 and Functional 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 [facility] [address] [facility] [id number] [address] [place] [address] Nov, HTN (hypertension) I10 [facility] [address] [facility] [id number] [address] [place] [address] Nov, Type 2 diabetes mellitus wit h other specified complication E11.69 ; Atherosclerotic heart disease of [place] coronary artery without angina pectoris I25.10 ; Hypercholesterolemia E78.0 ; Anxiety F41.9 ; Depression F32.9 ; Cervicalgia M54.2 and Functional 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 [facility] [address] [facility] [id number] [address] [place] [address] Oct, [facility] [address] [facility] [id number] [address] [place] [address] Oct, Neck pain M54.2 [facility] [address] [facility] [id number] [address] [place] [phone] Sep, [facility] [address] [facility] [id number] [address] [place] [phone] Aug, [facility] [address] [facility] [id number] [address] [place] [address] Aug, [facility] [address] [facility] [id number] [address] [place] [address] Jul, Visit for TB skin test Z11.1 and Screening for tuberculosis Z11.1 [facility] [address] [facility] [id number] [address] [place] [address] May, [facility] [address] [facility] [id number] [address] [place] [address] May, Neck pain M54.2 [facility] [address] [facility] [id number] [address] [place] [address] May, [facility] [address] [facility] [id number] [address] [place] [address] Apr, Neck pain M54.2 [facility] [address] [facility] [id number] [address] [place] [address] Feb, Neck pain M54.2 [facility] [address] [facility] [id number] [address] [place] [address] Feb, [facility] [address] [facility] [id number] [address] [place] [address] Jan, Neck pain M54.2 [place] [address] [address] Jan, [place] [address] [address] Jan, Neck pain M54.2 [place] [address] [address] Jan, Neck pain M54.2 ; Type 2 sarath betes mellitus with other specified complication E11.69 ; CAD (coronary artery disease) 414.00 ; Insomnia 780.52 ; Anxiety F41.9 ; Depression F32.9 ; Pre-ulcerative calluses L84 and Hypercholesterolemia E78.0 [place] [address] [address] Nov, [place] [address] [address] Nov, Type 2 diabetes mellitus wit h other specified complication E11.69 ; Pre-ulcerative calluses L84 ; HTN (hypertension) I10 ; Hypercholesterolemia E78.0 ; Anxiety F41.9 ; Depression F32.9 ; Environmental allergies Z91.09 and Osteoarthritis M19.90 [place] [address] [address] Sep, [place] [address] [address] Aug, Allergic rhinitis, seasonal J30.2 [place] [address] [address] Jul, [address] [address] Jul, Other specified cardiac dysr hythmias 427.89 ; Essential hypertension, benign 401.1 ; Nondependent tobacco use disorder 305.1 ; Unspecified hereditary and idiopathic peripheral neuropathy 356.9 ; Diabetes mellitus without mention of complication, type II or unspecified type, not stated as uncontrolled 250.00 ; CAD (coronary artery disease) 414.00 ; Insomnia 780.52 and Depression 311 [facility] [address] [id number] [address] [place] [address], [place] [address] 14 Jul, 2015 [facility] [address] [id number] [address] [place] [address] Jul, [facility] [address] [id number] [address] [place] [address] May, [facility] [address] [id number] [address] [place] [address] May, [facility] [address] [id number] [address] [place] [address] May, [facility] [address] [id number] [address] [place] [address] Apr, [facility] [address] [id number] [address] [place] [address] Apr, Skin lesion of face 709.9 an d Anxiety 300.00 [facility] [address] [id number] [address] [place] [address] March, [facility] [address] [id number] [address] [place] [address] Feb, [facility] [address] [id number] [address] [place] [address] Feb, [facility] [address] [id number] [address] [place] [address] Jan, [facility] [address] [id number] [address] [place] [address] Jan, [facility] [address] [id number] [address] [place] [address] Jan, [facility] [address] [id number] [address] [place] [address] Jan, [facility] [address] [id number] [address] [place] [address] Jan, [facility] [address] [id number] [address] [place] [address], [place] [address] Jan, [facility] [address] [id number] [address] [place] [address], [place] [address] Dec, [facility] [address] [id number] [address] [place] [address], [place] [address] Dec, [facility] [address] [id number] [address] [place] [address], [place] [address] Nov, [facility] [address] [id number] [address] [place] [address], [place] [address] Nov, [facility] [address] [id number] [address] [place] [address], [place] [address] Oct, [facility] [address] [id number] [address] [place] [address], [place] [address] Oct, [facility] [address] [id number] [address] [place] [address], [place] [address] Oct, [facility] [address] [id number] [address] [place] [address], [place] [address] Oct, [facility] [address] [id number] [address] [place] [address], [place] [address] Sep, [facility] [address] [id number] [address] [place] [address], [place] [address] Sep, [facility] [address] [id number] [address] [place] [address], [place] [address] Sep, [facility] [address] [id number] [address] [place] [address], [place] [address] Sep, [facility] [address] [id number] [address] [place] [address], [place] [address] Sep, [facility] [address] [id number] [address] [place] [address], [place] [address] Sep, [facility] [address] [id number] [address] [place] [address], [place] [address] Aug, [facility] [address] [id number] [address] [place] [address], [place] [address] Aug, [facility] [address] [id number] [address] [place] [address], [place] [address] Aug, [facility] [address] [id number] [address] [place] [address], [place] [address] Aug, [facility] [address] [id number] [address] [place] [address], [place] [address] Aug, [facility] [address] [id number] [address] [place] [address], [place] [id number] Aug, [facility] [address] [id number] [address] [place] [address], [place] [address] Aug, [facility] [address] [id number] [address] [place] [address], [place] [address] Aug, [facility] [address] [id number] [address] [place] [address], [place] [address] Aug, [facility] [address] [id number] [address] [place] [address], [place] [address] Aug, [facility] [address] [id number] [address] [place] [address], [place] [address] Jul, [facility] [address] [id number] [address] [place] [address], [place] [address] Jul, 2013 [facility] [address] [id number] [address] [place] [address], [place] [address] May, [facility] [address] [id number] [address] [place] [address], [place] [address] May, [facility] [address] [id number] [address] [place] [address], [place] [address] May, [facility] [address] [id number] [address] [place] [address], [place] [id number] May2013 [facility] [address] [id number] [address] [place] [address], [place] [address] May, [facility] [address] [id number] [address] [place] [address], [place] [address] May, [facility] [address] [id number] [address] [place] [address], [place] [address] Apr, [facility] [address] [id number] [address] [place] [address], [place] [address] Apr, [facility] [address] [id number] [address] [place] [address], [place] [id number] Apr, [facility] [address] [id number] [address] [place] [address], [place] [address] Apr, [facility] [address] [id number] [address] [place] [address], [place] [address] March, [facility] [address] [id number] [address] [place] [address], [place] [id number] March, [facility] [address] [id number] [address] [place] [address], [place] [address] Feb, [facility] [address] [id number] [address] [place] [address], [place] [address] Feb, [facility] [address] [id number] [address] [place] [address], [place] [address] Jan, [facility] [address] [id number] [address] [place] [address], [place] [address] Jan, [facility] [address] [id number] [address] [place] [address], [place] [address] Nov, [facility] [address] [id number] [address] [place] [address], [place] [address] Nov, [facility] [address] [id number] [address] [place] [address], [place] [address] Nov, [facility] [address] [id number] [address] [place] [address], [place] [address] Nov, [facility] [address] [id number] [address] [place] [address], [place] [address] Nov, [facility] [address] [id number] [address] [place] [address], [place] [address] Nov, [facility] [address] [id number] [address] [place] [address], [place] [id number] Oct, [facility] [address] [id number] [address] [place] [address], [place] [id number] Oct, [facility] [address] [id number] [address] [place] [address], [place] [id number] Aug, [facility] [address] [id number] [address] [place] [address], [place] [id number] Aug, [facility] [address] [id number] [address] [place] [address], [place] [id number] Jul, [facility] [address] [id number] [address] [place] [address], [place] [id number] Jun, [facility] [address] [id number] [address] [place] [address], [place] [id number] Jun, [facility] [address] [id number] [address] [place] [address], [place] [id number] Jun, [facility] [address] [id number] [address] [place] [address], [place] [id number] Jun, [facility] [address] [id number] [address] [place] [address], [place] [id number] Jun, [facility] [address] [id number] [address] [place] [address], [place] [id number] Jun, [facility] [address] [id number] [address] [place] [address], [place] [id number] May, [facility] [address] [id number] [address] [place] [address], [place] [id number] March, [facility] [address] [id number] [address] [place] [id number] March, [facility] [address] [facility] [id number] [address] [place] [id number] Jan, IMMUNIZATIONS No Known Immunizations SOCIAL HISTORY [...] Hospitalization History surgery Hospitalization History [facility]- Right Leg Pain 09/21/2017 Hospitalization History [facility]- Severe Dehydr ation with Acute Renal Failure 05/06/2018 Hospitalization History Back surgery to remove cyst/ infecti on
--- OUTSIDE RECORDS SUMMARY | 2020-03-23 01:00 | XMS REPORT ---
Author Author Zoran CAMPBELL Organization [facility] Address [address] [place] [address] Care Team Providers Care Programming Intern Name Role Phone ASHLEY CAMPBELL Unavailable PROBLEMS Type Condition ICD9-CM Code HVK33-FO Code Onset Dates Condition S tatus SNOMED Code Problem Atherosclerotic heart diseas e of [place] coronary artery without angina pectoris I25.10 Active 201480113 Problem Cervical stenosis of spine M48.02 Act cynthia 09841465 Problem Other chronic pain G89.29 Active 8 8264831 Problem Type 2 diabetes mellitus with other specified complication E11.69 Active 9236468 Problem HTN (hypertension) I10 Active 3 9685861 Problem Cervicalgia M54.2 Active 05146430 1455100 Problem Cannabis abuse F12.10 Active 85596 009 Problem Recurrent major depressive disorder, in full remission F33.42 Active 936368674 Problem Hypercholesterolemia E78.0 Active Problem Parkinsons disease G20 Active 4 3347138 Problem Lumbar spondylosis M47.816 Active 2 74111547 Problem 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 Active [id number] ALLERGIES No Information ENCOUNTERS Encounter Location Date Diagnosis [facility] [address] [id number] [address] [place] [id number] 30 Aug, 2018 Cervicalgia M54.2 [facility] [address] [id number] [address] [place] [id number] 19 Aug, 2018 Type 2 diabetes mellitus wit h other specified complication E11.69 ; HTN (hypertension) I10 ; Parkinsons disease G20 ; Atherosclerotic heart disease of [place] coronary artery without angina pectoris I25.10 ; Hypercholesterolemia E78.0 and Cervical stenosis of spine M48.02 [facility] [address] [facility] [id number] [address] [place] [id number] 18 Aug, 2018 Type 2 diabetes mellitus wit h other specified complication E11.69 [facility] [id number] [address] [place] [address] May, [place] [id number] [place] [address] Apr, [place] [id number] [place] [id number] 22 Apr, 2018 Dehydration E86.0 ; Acute re nal failure, unspecified acute renal failure type N17.9 ; Cannabis abuse F12.10 ; Type 2 diabetes mellitus with other specified complication E11.69 ; HTN (hypertension) I10 ; Parkinsons disease G20 ; Hypercholesterolemia E78.0 ; Atherosclerotic heart disease of [place] coronary artery without angina pectoris I25.10 ; Cervicalgia M54.2 ; Need for hepatitis C screening test Z11.59 and Recurrent major depressive disorder, in full remission F33.42 [place] [address] [address] 18 Apr, 2018 [place] [address] [id number] 14 Apr, 2018 Dehydration E86.0 ; Hypotens ion, unspecified hypotension type I95.9 ; Fall, initial encounter W19.XXXA ; Acute head injury without loss of consciousness, initial encounter S09.90XA ; Type 2 diabetes mellitus with other specified complication E11.69 ; HTN (hypertension) I10 and Parkinsons disease G20 [place] [address] [place] [id number] [place] [id number] 14 Apr, 2018 [place] [address] [place] [id number] [address] [place] [address] Apr, [place] [address] [id number] [address] [place] [phone] Feb, Cervicalgia M54.2 [place] [address] [id number] [place] [address] Feb, Cervical stenosis of spine M 48.02 [place] [id number] [address] [place] [address] Jan, Cervicalgia M54.2 [facility] [address] [id number] [address] [place] [id number] Jan, Acute right-sided low back p ain with right-sided sciatica M54.41 [facility] [address] [id number] [address] [place] [id number] Dec, Cervicalgia M54.2 [facility] [address] [facility] [id number] [address] [place] [address] Dec, Controlled substance agreeme nt signed Z79.899 [place] [address] [facility] [id number] [address] [place] [address] Oct, Cervicalgia M54.2 [place] [address] [facility] [id number] [address] [place] [id number] Oct, Acute right-sided low back p ain with right-sided sciatica M54.41 [place] [address] [facility] [id number] [address] [place] [phone] Oct, [place] [address] [id number] [address] [place] [address] Sep, Cervicalgia M54.2 [place] [address] [facility] [id number] [address] [place] [id number] 14 Sep, 2017 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 [place] [address] [facility] [id number] [address] [place] [id number] 13 Sep, 2017 Lumbar back pain with radicu lopathy affecting right lower extremity M54.17 [place] [address] [id number] [address] [place] [id number] 03 Sep, 2017 Acute right-sided low back p ain with right-sided sciatica M54.41 [place] [id number] [facility] [id number] [address] [place] [id number] 30 Aug, 2017 Type 2 diabetes mellitus wit h other specified complication E11.69 ; HTN (hypertension) I10 ; Cervicalgia M54.2 ; Cervical stenosis of spine M48.02 ; Acute right hip pain M25.551 ; Atherosclerotic heart disease of [place] coronary artery without angina pectoris I25.10 ; Hypercholesterolemia E78.0 ; Parkinsons disease G20 and Depression F32.9 [facility] [address] [id number] [address] [place] [phone] Aug, Other chronic pain G89.29 [facility] [address] [id number] [address] [place] [id number] Jul, Other chronic pain G89.29 [facility] [address] [id number] [address] [place] [address] Jul, [facility] [address] [facility] [id number] [address] [place] [address] Jul, Cough R05 and Bronchitis J40 [facility] [address] [id number] [address] [place] [address] Jun, Other chronic pain G89.29 [facility] [address] [id number] [address] [place] [phone] Jun, [facility] [address] [facility] [id number] [address] [place] [address] Jun, Atherosclerotic heart diseas e of [place] coronary artery without angina pectoris I25.10 and Cervicalgia M54.2 [facility] [address] [id number] [address] [place] [address] Jun, Cervicalgia M54.2 [facility] [address] [id number] [address] [place] [phone] May, Other chronic pain G89.29 [facility] [address] [id number] [address] [place] [phone] May, [facility] [address] [id number] [address] [place] [id number] May, [facility] [address] [facility] [id number] [address] [place] [phone] May, [facility] [address] [facility] [id number] [address] [place] [id number] May, [facility] [address] [facility] [id number] [address] [place] [address] May, Type 2 diabetes mellitus wit h other specified complication E11.69 ; HTN (hypertension) I10 ; Atherosclerotic heart disease of [place] coronary artery without angina pectoris I25.10 ; Parkinsons disease G20 and Cervical stenosis of spine M48.02 [facility] [address] [id number] [address] [place] [address] Apr, Cervicalgia M54.2 [facility] [address] [facility] [id number] [address] [place] [address] Apr, Type 2 diabetes mellitus wit h other specified complication E11.69 ; HTN (hypertension) I10 ; Depression F32.9 ; Atherosclerotic heart disease of [place] coronary artery without angina pectoris I25.10 ; Coronary atherosclerosis due to lipid rich plaque I25.83 ; Cervicalgia M54.2 ; Parkinsons disease G20 ; Chronic diarrhea K52.9 and Pure hypercholesterolemia E78.00 [facility] [address] [facility] [id number] [address] [place] [id number] March, Other chronic pain G89.29 [place] [address] [facility] [id number] [address] [place] [address] March, Other chronic pain G89.29 [facility] [address] [id number] [address] [place] [address] Feb, Cervical stenosis of spine M 48.02 [facility] [address] [facility] [id number] [address] [place] [address] Feb, Other chronic pain G89.29 [facility] [address] [facility] [id number] [address] [place] [id number] Jan, [facility] [address] [facility] [id number] [address] [place] [id number] Jan, Other chronic pain G89.29 [facility] [address] [facility] [id number] [address] [place] [id number] 08 Jan, 2017 Other chronic pain G89.29 [facility] [address] [facility] [id number] [address] [place] [address] Jan, Type 2 diabetes mellitus wit h other specified complication E11.69 ; Atherosclerotic heart disease of [place] coronary artery without angina pectoris I25.10 ; Anxiety F41.9 ; HTN (hypertension) I10 ; Depression F32.9 ; Coronary atherosclerosis due to lipid rich plaque I25.83 ; Cervicalgia M54.2 ; Other chronic pain G89.29 and Functional 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 [place] [address] [facility] [id number] [place] [phone] Nov, HTN (hypertension) I10 [place] [address] [place] [id number] [place] [address] 03 Nov, 2016 Type 2 diabetes mellitus wit h other specified complication E11.69 ; Atherosclerotic heart disease of [place] coronary artery without angina pectoris I25.10 ; Hypercholesterolemia E78.0 ; Anxiety F41.9 ; Depression F32.9 ; Cervicalgia M54.2 and Functional 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 [address] [id number] [address] [place] [id number] Jul, Visit for TB skin test Z11.1 and Screening for tuberculosis Z11.1 [place] [address] [id number] [address] [place] [phone] May, [facility] [address] [facility] [id number] [address] [place] [phone] May, Neck pain M54.2 [facility] [address] [facility] [id number] [address] [place] [phone] May, [facility] [address] [facility] [id number] [address] [place] [phone] Apr, Neck pain M54.2 [facility] [address] [id number] [address] [place] [id number] Feb, Neck pain M54.2 [facility] [address] [facility] [id number] [address] [place] [phone] Feb, [facility] [address] [facility] [id number] [address] [place] [phone] Jan, Neck pain M54.2 [facility] [address] [facility] [id number] [address] [place] [id number] Jan, [facility] [address] [facility] [id number] [address] [place] [phone] Jan, Neck pain M54.2 [facility] [address] [facility] [id number] [address] [place] [phone] Jan, Neck pain M54.2 ; Type 2 sarath betes mellitus with other specified complication E11.69 ; CAD (coronary artery disease) 414.00 ; Insomnia 780.52 ; Anxiety F41.9 ; Depression F32.9 ; Pre-ulcerative calluses L84 and Hypercholesterolemia E78.0 [facility] [address] [facility] [id number] [address] [place] [id number] Nov, [facility] [address] [facility] [id number] [address] [place] [id number] Nov, Type 2 diabetes mellitus wit h other specified complication E11.69 ; Pre-ulcerative calluses L84 ; HTN (hypertension) I10 ; Hypercholesterolemia E78.0 ; Anxiety F41.9 ; Depression F32.9 ; Environmental allergies Z91.09 and Osteoarthritis M19.90 [facility] [address] [address] Sep, [facility] [address] [address] Aug, Allergic rhinitis, seasonal J30.2 [facility] [address] [address] Jul, [facility] [address] [address] Jul, Other specified cardiac dysr hythmias 427.89 ; Essential hypertension, benign 401.1 ; Nondependent tobacco use disorder 305.1 ; Unspecified hereditary and idiopathic peripheral neuropathy 356.9 ; Diabetes mellitus without mention of complication, type II or unspecified type, not stated as uncontrolled 250.00 ; CAD (coronary artery disease) 414.00 ; Insomnia 780.52 and Depression 311 [facility] [address] [address] Jul, [place] [address] [address] Jul, [facility] [address] [address] May, [facility] [address] [address] May, [facility] [address] [address] May, [facility] [address] [address] Apr, [facility] [address] [address] Apr, Skin lesion of face 709.9 an d Anxiety 300.00 [place] [address] [address] March, [facility] [address] [id number] [address] [place] [address], [place] [address] Feb, [facility] [address] [id number] [address] [place] [address], [place] [address] Feb, [facility] [address] [id number] [address] [place] [address], [place] [address] Jan, [facility] [address] [id number] [address] [place] [address], [place] [address] Jan, [facility] [address] [id number] [address] [place] [address], [place] [address] Jan, [facility] [address] [id number] [address] [place] [address], [place] [address] Jan, [facility] [address] [id number] [address] [place] [address], [place] [address] Jan, [facility] [address] [id number] [address] [place] [address], [place] [address] Jan, [facility] [address] [id number] [address] [place] [address], [place] [address] Dec, [facility] [address] [id number] [address] [place] [address], [place] [address] Dec, [facility] [address] [id number] [address] [place] [address], [place] [address] Nov, [facility] [address] [id number] [address] [place] [address], [place] [address] Nov, [facility] [address] [id number] [address] [place] [address], [place] [address] Oct, [facility] [address] [id number] [address] [place] [address], [place] [address] Oct, [facility] [address] [id number] [address] [place] [address], [place] [address] Oct, [facility] [address] [id number] [address] [place] [address], [place] [address] Oct, [facility] [address] [id number] [address] [place] [address], [place] [address] Sep, [facility] [address] [id number] [address] [place] [address], [place] [address] Sep, [facility] [address] [id number] [address] [place] [address], [place] [address] Sep, [facility] [address] [id number] [address] [place] [address], [place] [address] Sep, [facility] [address] [id number] [address] [place] [address], [place] [address] Sep, [facility] [address] [id number] [address] [place] [address], [place] [address] Sep, [facility] [address] [id number] [address] [place] [address], [place] [id number] Aug, [facility] [address] [id number] [address] [place] [address], [place] [address] Aug, [facility] [address] [id number] [address] [place] [address], [place] [address] Aug, [facility] [address] [id number] [address] [place] [address], [place] [address] Aug, [facility] [address] [id number] [address] [place] [address], [place] [address] Aug, [facility] [address] [id number] [address] [place] [address], [place] [address] Aug, [facility] [address] [id number] [address] [place] [address], [place] [address] Aug, [facility] [address] [id number] [address] [place] [address], [place] [address] Aug, [facility] [address] [id number] [address] [place] [address], [place] [address] Aug, [facility] [address] [id number] [address] [place] [address], [place] [address] Aug, [facility] [address] [id number] [address] [place] [address], [place] [address] Jul, [facility] [address] [id number] [address] [place] [address], [place] [address] Jul, [facility] [address] [id number] [address] [place] [address], [place] [address] May, [facility] [address] [id number] [address] [place] [address], [place] [address] May, [facility] [address] [id number] [address] [place] [address], [place] [address] May, [facility] [address] [id number] [address] [place] [address], [place] [address] May, [facility] [address] [id number] [address] [place] [address], [place] [address] May, [facility] [address] [id number] [address] [place] [address], [place] [address] May, [facility] [address] [id number] [address] [place] [address], [place] [id number] Apr, [facility] [address] [id number] [address] [place] [address], [place] [address] Apr, [facility] [address] [id number] [address] [place] [address], [place] [address] Apr, [facility] [address] [id number] [address] [place] [address], [place] [address] Apr, [facility] [address] [id number] [address] [place] [address], [place] [address] March, [facility] [address] [id number] [address] [place] [address], [place] [address] March, [facility] [address] [id number] [address] [place] [address], [place] [address] Feb, [facility] [address] [id number] [address] [place] [address], [place] [id number] Feb, [facility] [address] [id number] [address] [place] [address], [place] [address] Jan, [facility] [address] [id number] [address] [place] [address], [place] [address] Jan, [facility] [address] [id number] [address] [place] [address], [place] [address] Nov, [facility] [address] [id number] [address] [place] [address], [place] [address] Nov, [facility] [address] [id number] [address] [place] [address], [place] [address] Nov, [facility] [address] [id number] [address] [place] [address], [place] [address] Nov, [facility] [address] [id number] [address] [place] [address], [place] [address] Nov, [facility] [address] [id number] [address] [place] [address], [place] [address] Nov, [facility] [address] [id number] [address] [place] [address], [place] [address] Oct, [facility] [address] [id number] [address] [place] [address], [place] [address] Oct, [facility] [address] [id number] [address] [place] [address], [place] [id number] Aug, [facility] [address] [id number] [address] [place] [address], [place] [id number] Aug, [facility] [address] [id number] [address] [place] [address], [place] [id number] Jul, [facility] [address] [id number] [address] [place] [address], [place] [id number] Jun, [facility] [address] [id number] [address] [place] [id number] Jun, [facility] [address] [id number] [address] [place] [id number] Jun, [facility] [address] [id number] [address] [place] [id number] Jun, [facility] [address] [id number] [address] [place] [id number] Jun, [facility] [address] [id number] [address] [place] [id number] Jun, [facility] [address] [id number] [address] [place] [id number] May, [facility] [address] [id number] [address] [place] [id number] March, [facility] [address] [id number] [address] [place] [phone] March, [facility] [address] [id number] [address] [place] [phone] Jan, IMMUNIZATIONS No Known Immunizations SOCIAL HISTORY Never Assessed REASON FOR VISIT medication refill PLAN OF CARE VITAL SIGNS MEDICATIONS Medication Instructions Dosage Frequency Start Date End Date Duration S tatus Baclofen 10 mg Orally Three times a day 1 tablet with food or milk 8h 25 May, 2017 90 days Active Sinemet 10-100 mg Orally Three times a day 1 tablet 8h 90 days Active RESULTS No Results PROCEDURES No [...] Hospitalization History surgery Hospitalization History [facility]- Right Leg Pain 09/21/[address] [facility]- Severe Dehydr ation with Acute Renal Failure 05/06/2018 Hospitalization History Back surgery to remove cyst/ infecti on
--- OUTSIDE RECORDS SUMMARY | 2020-03-23 01:00 | XMS REPORT ---
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 Active 167195065 Problem Cervical stenosis of spine M48.02 Act cynthia 53655071 Problem Other chronic pain G89.29 Active 8 2854229 Problem Type 2 diabetes mellitus with other specified complication E11.69 Active 5919106 Problem HTN (hypertension) I10 Active 3 1779744 Problem Cervicalgia M54.2 Active 88220593 5312284 Problem Cannabis abuse F12.10 Active 15875 009 Problem Recurrent major depressive disorder, in full remission F33.42 Active 071638204 Problem Hypercholesterolemia E78.0 Active 59906830 Problem Parkinsons disease G20 Active 4 2422730 Problem Lumbar spondylosis M47.816 Active 2 37591090 Problem 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 Active 763460056 ALLERGIES No Information ENCOUNTERS Encounter Location Date Diagnosis [facility] [address] [facility] [id number] [address] [place] [address] May, [facility] [address] [facility] [id number] [address] [place] [address] Apr, [facility] [address] [facility] [id number] [address] [place] [address] Apr, Dehydration E86.0 ; Acute re nal failure, unspecified acute renal failure type N17.9 ; Cannabis abuse F12.10 ; Type 2 diabetes mellitus with other specified complication E11.69 ; HTN (hypertension) I10 ; Parkinsons disease G20 ; Hypercholesterolemia E78.0 ; 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 ; Cervicalgia M54.2 ; Need for hepatitis C screening test Z11.59 and Recurrent major depressive disorder, in full remission F33.42 [place] [address] [address] 18 Apr, 2018 [place] [address] [address] 14 Apr, 2018 Dehydration E86.0 ; Hypotens ion, unspecified hypotension type I95.9 ; Fall, initial encounter W19.XXXA ; Acute head injury without loss of consciousness, initial encounter S09.90XA ; Type 2 diabetes mellitus with other specified complication E11.69 ; HTN (hypertension) I10 and Parkinsons disease G20 [place] [address] [address] 14 Apr, 2018 [place] [address] [address] 12 Apr, 2018 [place] [address] [address] Feb, Cervicalgia M54.2 [place] [address] [address] Feb, Cervical stenosis of spine M 48.02 [place] [address] [address] Jan, Cervicalgia M54.2 [place] [address] [address] Jan, Acute right-sided low back p ain with right-sided sciatica M54.41 [place] [address] [address] Dec, Cervicalgia M54.2 [place] [address] [place] [id number] [place] [address] Dec, Controlled substance agreeme nt signed Z79.899 [place] [address] [address] Oct, Cervicalgia M54.2 [place] [address] [id number] [address] [place] [address] Oct, Acute right-sided low back p ain with right-sided sciatica M54.41 [place] [address] [id number] [address] [place] [address] Oct, [place] [address] [facility] [id number] [address] [place] [address] Sep, Cervicalgia M54.2 [place] [address] [id number] [address] [place] [address] 14 Sep, 2017 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 [place] [address] [id number] [address] [place] [address] 13 Sep, 2017 Lumbar back pain with radicu lopathy affecting right lower extremity M54.17 [place] [address] [facility] [id number] [address] [place] [address] 03 Sep, 2017 Acute right-sided low back p ain with right-sided sciatica M54.41 [place] [address] [facility] [id number] [address] [place] [address] Aug, Type 2 diabetes mellitus wit h other specified complication E11.69 ; HTN (hypertension) I10 ; Cervicalgia M54.2 ; Cervical stenosis of spine M48.02 ; Acute right hip pain M25.551 ; 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 ; Hypercholesterolemia E78.0 ; Parkinsons disease G20 and Depression F32.9 [place] [address] [facility] [id number] [address] [place] [address] Aug, Other chronic pain G89.29 [place] [address] [facility] [id number] [address] [place] [address] Jul, Other chronic pain G89.29 [place] [address] [facility] [id number] [address] [place] [address] Jul, [facility] [address] [id number] [address] [place] [address] Jul, Cough R05 and Bronchitis J40 [facility] [address] [id number] [address] [place] [address] Jun, Other chronic pain G89.29 [facility] [address] [id number] [address] [place] [address] Jun, [facility] [address] [id number] [address] [place] [address] Jun, 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 and Cervicalgia M54.2 [facility] [address] [id number] [address] [place] [address] Jun, Cervicalgia M54.2 [facility] [address] [id number] [address] [place] [address] May, Other chronic pain G89.29 [facility] [address] [id number] [address] [place] [address] May, [facility] [address] [id number] [address] [place] [address] May, [facility] [address] [id number] [address] [place] [address] May, [facility] [address] [id number] [address] [place] [address] May, [facility] [address] [id number] [address] [place] [address] May, Type 2 diabetes mellitus wit h other specified complication E11.69 ; HTN (hypertension) I10 ; 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 ; Parkinsons disease G20 and Cervical stenosis of spine M48.02 [facility] [address] [id number] [address] [place] [address] Apr, Cervicalgia M54.2 [facility] [address] [facility] [id number] [address] [place] [address] Apr, Type 2 diabetes mellitus wit h other specified complication E11.69 ; HTN (hypertension) I10 ; Depression F32.9 ; 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02 [place] [address] [facility] [id number] [address] [place] [address] Feb, Other chronic pain G89.29 [place] [address] [facility] [id number] [address] [place] [address] Jan, [place] [address] [facility] [id number] [address] [place] [address] Jan, Other chronic pain G89.29 [place] [address] [facility] [id number] [address] [place] [address] Jan, Other chronic pain G89.29 [place] [address] [facility] [id number] [address] [place] [address] Jan, Type 2 diabetes mellitus wit h other specified complication E11.69 ; 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 ; Anxiety F41.9 ; HTN (hypertension) I10 ; Depression F32.9 ; Coronary atherosclerosis due to lipid rich plaque I25.83 ; Cervicalgia M54.2 ; Other chronic pain G89.29 and Functional 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 [place] [address] [address] Nov, HTN (hypertension) I10 [facility] [address] [address] Nov, Type 2 diabetes mellitus wit h other specified complication E11.69 ; 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 ; Hypercholesterolemia E78.0 ; Anxiety F41.9 ; Depression F32.9 ; Cervicalgia M54.2 and Functional 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 [facility] [address] [address] Oct, [facility] [address] [address] Oct, Neck pain M54.2 [facility] [address] [address] Sep, [facility] [address] [address] Aug, [facility] [address] [address] Aug, [facility] [address] [place] [id number] [place] [address] Jul, Visit for TB skin test Z11.1 and Screening for tuberculosis Z11.1 [facility] [address] [address] May, [facility] [address] [address] May, Neck pain M54.2 [facility] [address] [address] May, [facility] [address] [address] Apr, Neck pain M54.2 [facility] [address] [address] Feb, Neck pain M54.2 [facility] [address] [address] Feb, [facility] [address] [address] Jan, Neck pain M54.2 [facility] [address] [address] Jan, [facility] [address] [address] Jan, Neck pain M54.2 [place] [address] [address] Jan, Neck pain M54.2 ; Type 2 sarath betes mellitus with other specified complication E11.69 ; CAD (coronary artery disease) 414.00 ; Insomnia 780.52 ; Anxiety F41.9 ; Depression F32.9 ; Pre-ulcerative calluses L84 and Hypercholesterolemia E78.0 [place] [address] [address] Nov, [place] [address] [address] Nov, Type 2 diabetes mellitus wit h other specified complication E11.69 ; Pre-ulcerative calluses L84 ; HTN (hypertension) I10 ; Hypercholesterolemia E78.0 ; Anxiety F41.9 ; Depression F32.9 ; Environmental allergies Z91.09 and Osteoarthritis M19.90 [place] [address] [address] Sep, [place] [address] [address] Aug, Allergic rhinitis, seasonal J30.2 [place] [address] [address] Jul, [place] [address] [address] Jul, Other specified cardiac dysr hythmias 427.89 ; Essential hypertension, benign 401.1 ; Nondependent tobacco use disorder 305.1 ; Unspecified hereditary and idiopathic peripheral neuropathy 356.9 ; Diabetes mellitus without mention of complication, type II or unspecified type, not stated as uncontrolled 250.00 ; CAD (coronary artery disease) 414.00 ; Insomnia 780.52 and Depression 311 [facility] [address] [id number] [address] [place] [address] Jul, [facility] [address] [id number] [address] [place] [address] Jul, [facility] [address] [id number] [address] [place] [address] May, [facility] [address] [id number] [address] [place] [address] May, [facility] [address] [facility] [id number] [address] [place] [address] May, [facility] [address] [id number] [address] [place] [address] Apr, [facility] [address] [facility] [id number] [address] [place] [address] Apr, Skin lesion of face 709.9 an d Anxiety 300.00 [facility] [address] [facility] [id number] [address] [place] [address] March, [facility] [address] [facility] [id number] [address] [place] [address] Feb, [facility] [address] [id number] [address] [place] [address] Feb, [facility] [address] [facility] [id number] [address] [place] [address] Jan, [facility] [address] [id number] [address] [place] [address] Jan, [facility] [address] [facility] [id number] [address] [place] [address] Jan, [facility] [address] [id number] [address] [place] [address], [place] [address] Jan, [facility] [address] [id number] [address] [place] [address], [place] [address] Jan, [facility] [address] [id number] [address] [place] [address], [place] [address] Jan, [facility] [address] [id number] [address] [place] [address], [place] [address] Dec, [facility] [address] [id number] [address] [place] [address], [place] [address] Dec, [facility] [address] [id number] [address] [place] [address], [place] [address] Nov, [facility] [address] [id number] [address] [place] [address], [place] [address] Nov, [facility] [address] [id number] [address] [place] [address], [place] [address] Oct, [facility] [address] [id number] [address] [place] [address], [place] [address] Oct, [facility] [address] [id number] [address] [place] [address], [place] [address] Oct, [facility] [address] [id number] [address] [place] [address], [place] [address] Oct, [facility] [address] [id number] [address] [place] [address], [place] [address] Sep, [facility] [address] [id number] [address] [place] [address], [place] [address] Sep, [facility] [address] [id number] [address] [place] [address], [place] [address] Sep, [facility] [address] [id number] [address] [place] [address], [place] [address] Sep, [facility] [address] [id number] [address] [place] [address], [place] [address] Sep, [facility] [address] [id number] [address] [place] [address], [place] [address] Sep, [facility] [address] [id number] [address] [place] [address], [place] [address] Aug, [facility] [address] [id number] [address] [place] [address], [place] [address] Aug, [facility] [address] [id number] [address] [place] [address], [place] [address] Aug, [facility] [address] [id number] [address] [place] [address], [place] [address] Aug, [facility] [address] [id number] [address] [place] [address], [place] [address] Aug, [facility] [address] [id number] [address] [place] [address], [place] [address] Aug, [facility] [address] [id number] [address] [place] [address], [place] [address] Aug, [facility] [address] [id number] [address] [place] [address], [place] [address] Aug, [facility] [address] [id number] [address] [place] [address], [place] [address] Aug, [facility] [address] [id number] [address] [place] [address], [place] [address] Aug, [facility] [address] [id number] [address] [place] [address], [place] [address] Jul, [facility] [address] [id number] [address] [place] [address], [place] [address] Jul, [facility] [address] [id number] [address] [place] [address], [place] [address] May, [facility] [address] [id number] [address] [place] [address], [place] [address] May, [facility] [address] [id number] [address] [place] [address], [place] [address] May, [facility] [address] [id number] [address] [place] [address], [place] [address] May, [facility] [address] [id number] [address] [place] [address], [place] [address] May, [facility] [address] [id number] [address] [place] [address], [place] [address] May, [facility] [address] [id number] [address] [place] [address], [place] [address] Apr, [facility] [address] [id number] [address] [place] [address], [place] [address] Apr, [facility] [address] [id number] [address] [place] [address], [place] [address] Apr, [facility] [address] [id number] [address] [place] [address], [place] [address] Apr, [facility] [address] [id number] [address] [place] [address], [place] [address] March, [facility] [address] [id number] [address] [place] [address], [place] [address] March, [facility] [place] [address] [id number] [address] [place] [address], [place] [address] Feb, [facility] [address] [id number] [address] [place] [address], [place] [address] Feb, [facility] [address] [id number] [address] [place] [address], [place] [address] Jan, [facility] [address] [id number] [address] [place] [address], [place] [address] Jan, [facility] [address] [id number] [address] [place] [address], [place] [address] Nov, [facility] [address] [id number] [address] [place] [address] Nov, [facility] [address] [id number] [address] [place] [address], [place] [address] Nov, [facility] [address] [id number] [address] [place] [address], [place] [address] Nov, [facility] [address] [id number] [address] [place] [address], [place] [address] Nov, [facility] [address] [id number] [address] [place] [address], [place] [address] Nov, [facility] [address] [id number] [address] [place] [address], [place] [address] Oct, [facility] [address] [id number] [address] [place] [address], [place] [address] Oct, [facility] [address] [id number] [address] [place] [address], [place] [address] Aug, [facility] [address] [id number] [address] [place] [address], [place] [address] Aug, [facility] [address] [id number] [address] [place] [address], [place] [address] Jul, [facility] [address] [id number] [address] [place] [address], [place] [address] Jun, [facility] [address] [id number] [address] [place] [address], [place] [address] Jun, [facility] [address] [id number] [address] [place] [address], [place] [address] Jun, [facility] [address] [id number] [address] [place] [address], [place] [address] Jun, [facility] [address] [id number] [address] [place] [address], [place] [address] Jun, [facility] [address] [id number] [address] [place] [address], [place] [address] Jun, [facility] [address] [facility] [id number] [address] [place] [address] May, [facility] [address] [facility] [id number] [address] [place] [address] March, [facility] [address] [facility] [id number] [address] [place] [phone] March, [facility] [address] [facility] [id number] [address] [place] [id number] Jan, IMMUNIZATIONS No Known Immunizations SOCIAL HISTORY Never Assessed REASON FOR VISIT Refill request PLAN OF CARE VITAL SIGNS MEDICATIONS Unknown [...] cyst Hospitalization History surgery Hospitalization History [facility]- Right Leg Pain 09/21/2017 Hospitalization History [facility]- Severe Dehydr ation with Acute Renal Failure 05/06/2018 Hospitalization History Back surgery to remove cyst/ infecti on
--- OUTSIDE RECORDS SUMMARY | 2020-03-23 01:00 | XMS REPORT ---
Author Author Zoran CAMPBELL Organization [facility] Address [address] [place] [address] Care Team Providers Care [employer] Administrator Name Role Phone ASHLEY CAMPBELL Unavailable PROBLEMS Type Condition ICD9-CM Code HLE28-AP Code Onset Dates Condition S tatus SNOMED Code Problem Atherosclerotic heart diseas e of [place] coronary artery without angina pectoris I25.10 Active 089124733 Problem Cervical stenosis of spine M48.02 Act cynthia 28022656 Problem Other chronic pain G89.29 Active 8 6744936 Problem Type 2 diabetes mellitus with other specified complication E11.69 Active 4532886 Problem HTN (hypertension) I10 Active 3 4518909 Problem Cervicalgia M54.2 Active 10822300 7668173 Problem Cannabis abuse F12.10 Active 24713 009 Problem Recurrent major depressive disorder, in full remission F33.42 Active 719626986 Problem Hypercholesterolemia E78.0 Active 75108097 Problem Parkinsons disease G20 Active 4 9314018 Problem Lumbar spondylosis M47.816 Active 2 78332359 Problem 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 Active [id number] ALLERGIES No Information ENCOUNTERS Encounter Location Date Diagnosis [facility] [address] [facility] [id number] [address] [place] [address] Aug, Type 2 diabetes mellitus wit h other specified complication E11.69 ; HTN (hypertension) I10 ; Parkinsons disease G20 ; Atherosclerotic heart disease of [place] coronary artery without angina pectoris I25.10 ; Hypercholesterolemia E78.0 and Cervical stenosis of spine M48.02 [facility] [address] [facility] [id number] [address] [place] [address] Aug, Type 2 diabetes mellitus wit h other specified complication E11.69 [facility] [address] [facility] [id number] [address] [place] [address] May, [facility] [address] [place] [id number] [address] [place] [address] 28 Apr, 2018 [place] [address] [place] [id number] [place] [address] 22 Apr, 2018 Dehydration E86.0 ; Acute re nal failure, unspecified acute renal failure type N17.9 ; Cannabis abuse F12.10 ; Type 2 diabetes mellitus with other specified complication E11.69 ; HTN (hypertension) I10 ; Parkinsons disease G20 ; Hypercholesterolemia E78.0 ; Atherosclerotic heart disease of [place] coronary artery without angina pectoris I25.10 ; Cervicalgia M54.2 ; Need for hepatitis C screening test Z11.59 and Recurrent major depressive disorder, in full remission F33.42 [place] [address] [address] 18 Apr, 2018 [place] [address] [address] 14 Apr, 2018 Dehydration E86.0 ; Hypotens ion, unspecified hypotension type I95.9 ; Fall, initial encounter W19.XXXA ; Acute head injury without loss of consciousness, initial encounter S09.90XA ; Type 2 diabetes mellitus with other specified complication E11.69 ; HTN (hypertension) I10 and Parkinsons disease G20 [place] [address] [address] 14 Apr, 2018 [place] [address] [address] Apr, [place] [address] [address] Feb, Cervicalgia M54.2 [place] [address] [place] [id number] [address] [place] [address] Feb, Cervical stenosis of spine M 48.02 [place] [address] [place] [id number] [address] [place] [address] Jan, Cervicalgia M54.2 [place] [address] [place] [id number] [place] [address] Jan, Acute right-sided low back p ain with right-sided sciatica M54.41 [place] [address] [facility] [id number] [address] [place] [address] Dec, Cervicalgia M54.2 [place] [address] [facility] [id number] [address] [place] [address] Dec, Controlled substance agreeme nt signed Z79.899 [place] [address] [facility] [id number] [address] [place] [address] Oct, Cervicalgia M54.2 [place] [address] [place] [id number] [address] [place] [address] Oct, Acute right-sided low back p ain with right-sided sciatica M54.41 [place] [address] [place] [id number] [address] [place] [address] Oct, [place] [address] [place] [id number] [address] [place] [address] Sep, Cervicalgia M54.2 [place] [address] [place] [id number] [address] [place] [address] 14 Sep, 2017 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 [place] [address] [place] [id number] [address] [place] [address] 13 Sep, 2017 Lumbar back pain with radicu lopathy affecting right lower extremity M54.17 [place] [address] [place] [id number] [address] [place] [address] 03 Sep, 2017 Acute right-sided low back p ain with right-sided sciatica M54.41 [place] [address] [place] [id number] [address] [place] [address] 30 Aug, 2017 Type 2 diabetes mellitus wit h other specified complication E11.69 ; HTN (hypertension) I10 ; Cervicalgia M54.2 ; Cervical stenosis of spine M48.02 ; Acute right hip pain M25.551 ; Atherosclerotic heart disease of [place] coronary artery without angina pectoris I25.10 ; Hypercholesterolemia E78.0 ; Parkinsons disease G20 and Depression F32.9 [facility] [address] [id number] [address] [place] [address] Aug, Other chronic pain G89.29 [facility] [address] [id number] [address] [place] [address] Jul, Other chronic pain G89.29 [facility] [address] [id number] [address] [place] [address] Jul, [facility] [address] [id number] [address] [place] [address] Jul, Cough R05 and Bronchitis J40 [facility] [address] [id number] [address] [place] [address] Jun, Other chronic pain G89.29 [facility] [address] [id number] [address] [place] [address] Jun, [facility] [address] [id number] [address] [place] [address] Jun, Atherosclerotic heart diseas e of [place] coronary artery without angina pectoris I25.10 and Cervicalgia M54.2 [facility] [address] [id number] [address] [place] [address] Jun, Cervicalgia M54.2 [facility] [address] [id number] [address] [place] [address] May, Other chronic pain G89.29 [facility] [address] [id number] [address] [place] [address] May, [facility] [address] [facility] [id number] [address] [place] [address] May, [facility] [address] [id number] [address] [place] [address] May, [facility] [address] [facility] [id number] [address] [place] [address] May, [facility] [address] [facility] [id number] [address] [place] [address] May, Type 2 diabetes mellitus wit h other specified complication E11.69 ; HTN (hypertension) I10 ; Atherosclerotic heart disease of [place] coronary artery without angina pectoris I25.10 ; Parkinsons disease G20 and Cervical stenosis of spine M48.02 [facility] [address] [id number] [address] [place] [address] Apr, Cervicalgia M54.2 [place] [address] [id number] [address] [place] [address] Apr, Type 2 diabetes mellitus wit h other specified complication E11.69 ; HTN (hypertension) I10 ; Depression F32.9 ; Atherosclerotic heart disease of [place] coronary artery without angina pectoris I25.10 ; Coronary atherosclerosis due to lipid rich plaque I25.83 ; Cervicalgia M54.2 ; Parkinsons disease G20 ; Chronic diarrhea K52.9 and Pure hypercholesterolemia E78.00 [place] [address] [facility] [id number] [address] [place] [address] March, Other chronic pain G89.29 [place] [address] [facility] [id number] [address] [place] [address] March, Other chronic pain G89.29 [place] [address] [facility] [id number] [address] [place] [address] Feb, Cervical stenosis of spine M 48.02 [facility] [address] [id number] [address] [place] [address] Feb, Other chronic pain G89.29 [facility] [address] [id number] [address] [place] [address] Jan, [place] [address] [facility] [id number] [address] [place] [address] Jan, Other chronic pain G89.29 [facility] [address] [facility] [id number] [address] [place] [address] Jan, Other chronic pain G89.29 [facility] [address] [facility] [id number] [address] [place] [address] Jan, Type 2 diabetes mellitus wit h other specified complication E11.69 ; Atherosclerotic heart disease of [place] coronary artery without angina pectoris I25.10 ; Anxiety F41.9 ; HTN (hypertension) I10 ; Depression F32.9 ; Coronary atherosclerosis due to lipid rich plaque I25.83 ; Cervicalgia M54.2 ; Other chronic pain G89.29 and Functional 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 [facility] [id number] [place] [address] Nov, HTN (hypertension) I10 [place] [address] [place] [id number] [place] [address] Nov, Type 2 diabetes mellitus wit h other specified complication E11.69 ; Atherosclerotic heart disease of [place] coronary artery without angina pectoris I25.10 ; Hypercholesterolemia E78.0 ; Anxiety F41.9 ; Depression F32.9 ; Cervicalgia M54.2 and Functional 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 [facility] [address] [place] [id number] [address] [place] [address] Oct, [facility] [address] [place] [id number] [place] [address] Oct, Neck pain M54.2 [facility] [address] [address] Sep, [facility] [address] [place] [id number] [address] [place] [address] Aug, [facility] [address] [place] [id number] [address] [place] [address] Aug, [facility] [address] [place] [id number] [address] [place] [phone] Jul, Visit for TB skin test Z11.1 and Screening for tuberculosis Z11.1 [facility] [address] [place] [id number] [address] [place] [address] May, [facility] [address] [facility] [id number] [address] [place] [address] May, Neck pain M54.2 [facility] [address] [facility] [id number] [address] [place] [address] May, [facility] [address] [facility] [id number] [address] [place] [address] Apr, Neck pain M54.2 [facility] [address] [facility] [id number] [address] [place] [address] Feb, Neck pain M54.2 [facility] [address] [facility] [id number] [address] [place] [address] Feb, [facility] [address] [place] [id number] [address] [place] [address] Jan, Neck pain M54.2 [place] [address] [place] [id number] [address] [place] [address] Jan, [facility] [address] [place] [id number] [address] [place] [address] Jan, Neck pain M54.2 [facility] [address] [place] [id number] [place] [address] Jan, Neck pain M54.2 ; Type 2 sarath betes mellitus with other specified complication E11.69 ; CAD (coronary artery disease) 414.00 ; Insomnia 780.52 ; Anxiety F41.9 ; Depression F32.9 ; Pre-ulcerative calluses L84 and Hypercholesterolemia E78.0 [place] [address] [place] [id number] [address] [place] [address] Nov, [place] [address] [place] [id number] [address] [place] [address] Nov, Type 2 diabetes mellitus wit h other specified complication E11.69 ; Pre-ulcerative calluses L84 ; HTN (hypertension) I10 ; Hypercholesterolemia E78.0 ; Anxiety F41.9 ; Depression F32.9 ; Environmental allergies Z91.09 and Osteoarthritis M19.90 [place] [address] [address] Sep, [facility] [address] [address] Aug, Allergic rhinitis, seasonal J30.2 [facility] [address] [place] [id number] [place] [address] Jul, [facility] [address] [address] Jul, Other specified cardiac dysr hythmias 427.89 ; Essential hypertension, benign 401.1 ; Nondependent tobacco use disorder 305.1 ; Unspecified hereditary and idiopathic peripheral neuropathy 356.9 ; Diabetes mellitus without mention of complication, type II or unspecified type, not stated as uncontrolled 250.00 ; CAD (coronary artery disease) 414.00 ; Insomnia 780.52 and Depression 311 [facility] [address] [address] Jul, [facility] [address] [address] Jul, [facility] [address] [address] May, [facility] [address] [address] May, [facility] [address] [address] May, [facility] [address] [place] [id number] [address] [place] [address] Apr, [facility] [address] [address] Apr, Skin lesion of face 709.9 an d Anxiety 300.00 [facility] [address] [place] [id number] [address] [place] [address] March, [facility] [address] [address] 14 Feb, 2015 [facility] [address] [id number] [address] [place] [address], [place] [address] 13 Feb, 2015 [facility] [address] [id number] [address] [place] [address], [place] [address] Jan, [facility] [address] [id number] [address] [place] [address], [place] [address] Jan, [facility] [address] [id number] [address] [place] [address], [place] [address] Jan, [facility] [address] [id number] [address] [place] [address], [place] [address] Jan, [facility] [address] [id number] [address] [place] [address], [place] [address] Jan, [facility] [address] [id number] [address] [place] [address], [place] [address] Jan, [facility] [address] [id number] [address] [place] [address], [place] [address] Dec, [facility] [address] [id number] [address] [place] [address], [place] [address] Dec, [facility] [address] [id number] [address] [place] [address], [place] [address] Nov, [facility] [address] [id number] [address] [place] [address], [place] [address] Nov, [facility] [address] [id number] [address] [place] [address], [place] [address] Oct, [facility] [address] [id number] [address] [place] [address], [place] [address] Oct, [facility] [address] [id number] [address] [place] [address], [place] [address] Oct, [facility] [address] [id number] [address] [place] [address], [place] [address] Oct, [facility] [address] [id number] [address] [place] [address], [place] [address] Sep, [facility] [address] [id number] [address] [place] [address], [place] [address] Sep, [facility] [address] [id number] [address] [place] [address], [place] [address] Sep, [facility] [address] [id number] [address] [place] [address], [place] [address] Sep, [facility] [address] [id number] [address] [place] [address], [place] [address] Sep, [facility] [address] [id number] [address] [place] [address], [place] [address] Sep, [facility] [address] [id number] [address] [place] [address], [place] [address] Aug, [facility] [address] [id number] [address] [place] [address], [place] [address] Aug, [facility] [address] [id number] [address] [place] [address], [place] [address] Aug, [facility] [address] [id number] [address] [place] [address], [place] [address] Aug, [facility] [address] [id number] [address] [place] [address], [place] [address] Aug, [facility] [address] [id number] [address] [place] [address], [place] [address] Aug, [facility] [address] [id number] [address] [place] [address], [place] [address] Aug, [facility] [address] [id number] [address] [place] [address], [place] [address] Aug, [facility] [address] [id number] [address] [place] [address], [place] [address] Aug, [facility] [address] [id number] [address] [place] [address], [place] [address] Aug, [facility] [address] [id number] [facility] [place] [address] Jul, [facility] [address] [id number] [address] [place] [address], [place] [address] Jul, [facility] [address] [id number] [address] [place] [address], [place] [address] May, [facility] [address] [id number] [address] [place] [address], [place] [address] May, [facility] [address] [id number] [address] [place] [address], [place] [address] May, [facility] [address] [id number] [address] [place] [address], [place] [address] May, [facility] [address] [id number] [address] [place] [address], [place] [address] May, [facility] [address] [id number] [address] [place] [address], [place] [address] May, [facility] [address] [id number] [address] [place] [address], [place] [address] Apr, [facility] [address] [id number] [address] [place] [address], [place] [address] Apr, [facility] [address] [id number] [address] [place] [address], [place] [address] Apr, [facility] [address] [id number] [address] [place] [address], [place] [address] Apr, [facility] [address] [id number] [address] [place] [address], [place] [address] March, [facility] [address] [id number] [address] [place] [address], [place] [address] March, [facility] [address] [id number] [address] [place] [address], [place] [address] Feb, [facility] [address] [id number] [address] [place] [address], [place] [address] Feb, [facility] [address] [id number] [address] [place] [address], [place] [address] Jan, [facility] [address] [id number] [address] [place] [address], [place] [address] Jan, [facility] [address] [id number] [address] [place] [address], [place] [address] Nov, [facility] [address] [id number] [address] [place] [address], [place] [address] Nov, [facility] [address] [id number] [address] [place] [address], [place] [address] Nov, [facility] [address] [id number] [address] [place] [address], [place] [address] Nov, [facility] [address] [id number] [address] [place] [address], [place] [address] Nov, [facility] [address] [id number] [address] [place] [address], [place] [address] Nov, [facility] [address] [id number] [address] [place] [address], [place] [address] Oct, [facility] [address] [id number] [address] [place] [address], [place] [address] Oct, [facility] [address] [id number] [address] [place] [address], [place] [address] Aug, [facility] [address] [id number] [address] [place] [address], [place] [address] Aug, [facility] [address] [id number] [address] [place] [address], [place] [address] Jul, [facility] [address] [id number] [address] [place] [address], [place] [address] Jun, [facility] [address] [id number] [address] [place] [address], [place] [address] Jun, [facility] [address] [id number] [address] [place] [id number] Jun, [facility] [address] [id number] [address] [place] [id number] Jun, [facility] [address] [id number] [address] [place] [id number] Jun, [facility] [address] [id number] [address] [place] [id number] Jun, [facility] [address] [id number] [address] [place] [id number] May, [facility] [address] [id number] [address] [place] [id number] March, [facility] [address] [id number] [address] [place] [id number] March, [facility] [address] [id number] [address] [place] [id number] Jan, IMMUNIZATIONS No Known Immunizations SOCIAL HISTORY Never Assessed REASON FOR VISIT Refill request PLAN OF CARE VITAL SIGNS MEDICATIONS Medication Instructions Dosage Frequency Start Date End Date Duration S tatus MetFORMIN HCl ER 500 mg Orally twice a day 1 tablet twice daily wit h food 12h 30 Aug, 2017 30 day(s) Active Gabapentin 300 MG Orally 3 times a day TAKE 1 CAPSULE BY MOUTH 3 TI MES A DAY 8h 30 Active Mobic 7.5 MG Orally 2 times a day 1 tablet 12h 30 Active RESULTS No Results PROCEDURES No Known [...] [place]- Right Leg Pain 09/21/2017 Hospitalization History [facility]- Severe Dehydr ation with Acute Renal Failure 05/06/2018 Hospitalization History Back surgery to remove cyst/ infecti on
--- OUTSIDE RECORDS SUMMARY | 2020-03-23 01:00 | XMS REPORT ---
Author Author Zoran CAMPBELL Organization [facility] Address [address] [place] [address] Care Team Providers Care Field Hand Name Role Phone ASHLEY CAMPBELL Unavailable PROBLEMS Type Condition ICD9-CM Code [id number] Code Onset Dates Condition S tatus SNOMED Code Problem Cervical stenosis of spine M48.02 Act cynthia 28699275 Problem Hypercholesterolemia E78.0 Active 46695616 Problem Parkinsons disease G20 Active 4 6157810 Problem Generalized anxiety disorder F41.1 A ctive 52097876 Problem Panic F41.0 Active 33349165 Problem Lumbar spondylosis M47.816 Active 2 13755546 Problem 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 Active 717145220 Problem Recurrent major depressive disorder, in full remission F33.42 Active 297130058 Problem Cannabis abuse F12.10 Active 30446 009 Problem HTN (hypertension) I10 Active 3 4661743 Problem Cervicalgia M54.2 Active 35402119 0090462 Problem 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 Active 417841540 Problem Type 2 diabetes mellitus with other specified complication E11.69 Active 7552570 Problem Other chronic pain G89.29 Active 8 7405195 ALLERGIES No Known Allergies ENCOUNTERS Encounter Location Date Diagnosis [facility] [address] [facility] [id number] [address] [place] [address] Nov, [facility] [address] [facility] [id number] [address] [place] [address] Nov, [facility] [address] [facility] [id number] [address] [place] [address] Oct, Generalized anxiety disorder F41.1 and Panic F41.0 [facility] [address] [facility] [id number] [address] [place] [address] Oct, Generalized anxiety disorder F41.1 and Panic F41.0 [place] [address] [facility] [id number] [address] [place] [address] Aug, Cervicalgia M54.2 [place] [address] [facility] [id number] [address] [place] [address] Aug, Type 2 diabetes mellitus wit h other specified complication E11.69 ; HTN (hypertension) I10 ; Parkinsons disease G20 ; 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 ; Hypercholesterolemia E78.0 and Cervical stenosis of spine M48.02 [place] [address] [place] [address] Aug, Type 2 diabetes mellitus wit h other specified complication E11.69 [place] [address] [facility] [id number] [address] [place] [address] May, [place] [address] [address] Apr, [place] [address] [place] [id number] [address] [place] [address] Apr, Dehydration E86.0 ; Acute re nal failure, unspecified acute renal failure type N17.9 ; Cannabis abuse F12.10 ; Type 2 diabetes mellitus with other specified complication E11.69 ; HTN (hypertension) I10 ; Parkinsons disease G20 ; Hypercholesterolemia E78.0 ; 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 ; Cervicalgia M54.2 ; Need for hepatitis C screening test Z11.59 and Recurrent major depressive disorder, in full remission F33.42 [place] [address] [place] [id number] [address] [place] [address] Apr, [address] [address] 14 Apr, 2018 Dehydration E86.0 ; Hypotens ion, unspecified hypotension type I95.9 ; Fall, initial encounter W19.XXXA ; Acute head injury without loss of consciousness, initial encounter S09.90XA ; Type 2 diabetes mellitus with other specified complication E11.69 ; HTN (hypertension) I10 and Parkinsons disease G20 [facility] [address] [id number] [address] [place] [address] 14 Apr, 2018 [facility] [address] [id number] [address] [place] [address] Apr, [facility] [address] [id number] [address] [place] [address] Feb, Cervicalgia M54.2 [facility] [address] [id number] [address] [place] [address] Feb, Cervical stenosis of spine M 48.02 [facility] [address] [id number] [address] [place] [address] Jan, Cervicalgia M54.2 [facility] [address] [facility] [id number] [address] [place] [address] Jan, Acute right-sided low back p ain with right-sided sciatica M54.41 [facility] [address] [id number] [address] [place] [address] Dec, Cervicalgia M54.2 [facility] [address] [facility] [id number] [address] [place] [address] Dec, Controlled substance agreeme nt signed Z79.899 [facility] [address] [facility] [id number] [address] [place] [address] Oct, Cervicalgia M54.2 [facility] [address] [facility] [id number] [address] [place] [address] Oct, Acute right-sided low back p ain with right-sided sciatica M54.41 [facility] [address] [id number] [address] [place] [address] Oct, [facility] [address] [id number] [address] [place] [address] Sep, Cervicalgia M54.2 [facility] [address] [id number] [address] [place] [address] 14 Sep, 2017 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 [place] [address] [facility] [id number] [address] [place] [address] 13 Sep, 2017 Lumbar back pain with radicu lopathy affecting right lower extremity M54.17 [place] [address] [place] [id number] [address] [place] [address] 03 Sep, 2017 Acute right-sided low back p ain with right-sided sciatica M54.41 [place] [address] [facility] [id number] [address] [place] [address] Aug, Type 2 diabetes mellitus wit h other specified complication E11.69 ; HTN (hypertension) I10 ; Cervicalgia M54.2 ; Cervical stenosis of spine M48.02 ; Acute right hip pain M25.551 ; 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 ; Hypercholesterolemia E78.0 ; Parkinsons disease G20 and Depression F32.9 [place] [address] [facility] [id number] [address] [place] [address] Aug, Other chronic pain G89.29 [place] [address] [facility] [id number] [address] [place] [address] Jul, Other chronic pain G89.29 [place] [address] [facility] [id number] [address] [place] [address] Jul, [facility] [address] [id number] [address] [place] [address] Jul, Cough R05 and Bronchitis J40 [facility] [address] [id number] [address] [place] [address] Jun, Other chronic pain G89.29 [facility] [address] [facility] [id number] [address] [place] [address] Jun, [place] [address] [facility] [id number] [address] [place] [address] Jun, 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 and Cervicalgia M54.2 [facility] [address] [id number] [address] [place] [address] Jun, Cervicalgia M54.2 [facility] [address] [id number] [address] [place] [address] May, Other chronic pain G89.29 [facility] [address] [id number] [address] [place] [address] May, [facility] [address] [id number] [address] [place] [address] May, [facility] [address] [id number] [address] [place] [address] May, [facility] [address] [id number] [address] [place] [address] May, [facility] [address] [id number] [address] [place] [address] May, Type 2 diabetes mellitus wit h other specified complication E11.69 ; HTN (hypertension) I10 ; 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 ; Parkinsons disease G20 and Cervical stenosis of spine M48.02 [facility] [address] [id number] [address] [place] [address] Apr, Cervicalgia M54.2 [facility] [address] [id number] [address] [place] [address] Apr, Type 2 diabetes mellitus wit h other specified complication E11.69 ; HTN (hypertension) I10 ; Depression F32.9 ; 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 ; Coronary atherosclerosis due to lipid rich plaque I25.83 ; Cervicalgia M54.2 ; Parkinsons disease G20 ; Chronic diarrhea K52.9 and Pure hypercholesterolemia E78.00 [facility] [address] [id number] [address] [place] [address] March, Other chronic pain G89.29 [facility] [address] [facility] [id number] [address] [place] [address] March, Other chronic pain G89.29 [facility] [address] [facility] [id number] [address] [place] [address] Feb, Cervical stenosis of spine M 48.02 [facility] [address] [facility] [id number] [address] [place] [address] Feb, Other chronic pain G89.29 [facility] [address] [facility] [id number] [address] [place] [address] Jan, [place] [address] [facility] [id number] [address] [place] [address] Jan, Other chronic pain G89.29 [place] [address] [facility] [id number] [address] [place] [address] Jan, Other chronic pain G89.29 [place] [address] [facility] [id number] [address] [place] [address] Jan, Type 2 diabetes mellitus wit h other specified complication E11.69 ; 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 ; Anxiety F41.9 ; HTN (hypertension) I10 ; Depression F32.9 ; Coronary atherosclerosis due to lipid rich plaque I25.83 ; Cervicalgia M54.2 ; Other chronic pain G89.29 and Functional 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 [place] [address] [facility] [id number] [address] [place] [address] Nov, HTN (hypertension) I10 [place] [address] [facility] [id number] [address] [place] [address] Nov, Type 2 diabetes mellitus wit h other specified complication E11.69 ; 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 ; Hypercholesterolemia E78.0 ; Anxiety F41.9 ; Depression F32.9 ; Cervicalgia M54.2 and Functional 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 [place] [address] [facility] [id number] [address] [place] [address] Oct, [place] [address] [id number] [address] [place] [address] Oct, Neck pain M54.2 [facility] [address] [id number] [address] [place] [address] Sep, [facility] [address] [id number] [address] [place] [address] Aug, [facility] [address] [id number] [address] [place] [address] Aug, [facility] [address] [id number] [address] [place] [address] Jul, Visit for TB skin test Z11.1 and Screening for tuberculosis Z11.1 [facility] [address] [id number] [address] [place] [address] May, [facility] [address] [id number] [address] [place] [address] May, Neck pain M54.2 [facility] [address] [id number] [address] [place] [address] May, [facility] [address] [id number] [address] [place] [address] Apr, Neck pain M54.2 [facility] [address] [id number] [address] [place] [address] Feb, Neck pain M54.2 [facility] [address] [id number] [address] [place] [address] 06 Feb, 2016 [facility] [address] [id number] [address] [place] [address] 30 Jan, 2016 Neck pain M54.2 [facility] [address] [id number] [address] [place] [address] 17 Jan, 2016 [facility] [address] [id number] [address] [place] [address] 16 Jan, 2016 Neck pain M54.[address] [address] Jan, Neck pain M54.2 ; Type 2 sarath betes mellitus with other specified complication E11.69 ; CAD (coronary artery disease) 414.00 ; Insomnia 780.52 ; Anxiety F41.9 ; Depression F32.9 ; Pre-ulcerative calluses L84 and Hypercholesterolemia E78.[address] [address] Nov, [address] [address] Nov, Type 2 diabetes mellitus wit h other specified complication E11.69 ; Pre-ulcerative calluses L84 ; HTN (hypertension) I10 ; Hypercholesterolemia E78.0 ; Anxiety F41.9 ; Depression F32.9 ; Environmental allergies Z91.09 and Osteoarthritis M19.[address] [address] Sep, [address] [address] Aug, Allergic rhinitis, seasonal J30.[address] [address] Jul, [address] [address] Jul, Other specified cardiac dysr hythmias 427.89 ; Essential hypertension, benign 401.1 ; Nondependent tobacco use disorder 305.1 ; Unspecified hereditary and idiopathic peripheral neuropathy 356.9 ; Diabetes mellitus without mention of complication, type II or unspecified type, not stated as uncontrolled 250.00 ; CAD (coronary artery disease) 414.00 ; Insomnia 780.52 and Depression [address] [address] 14 Jul, [address] [address] Jul, [place] [id number] [address] [place] [address] May, [facility] [address] [id number] [address] [place] [address] May, [facility] [address] [id number] [address] [place] [address] May, [facility] [address] [id number] [address] [place] [address] Apr, [facility] [address] [id number] [address] [place] [address] Apr, Skin lesion of face 709.9 an d Anxiety 300.00 [facility] [address] [id number] [address] [place] [address] March, [facility] [address] [id number] [address] [place] [address] Feb, [facility] [address] [id number] [address] [place] [address] Feb, [facility] [address] [id number] [address] [place] [address] Jan, [facility] [address] [id number] [address] [place] [address] Jan, [facility] [address] [id number] [address] [place] [address] Jan, [facility] [address] [id number] [address] [place] [address] Jan, [facility] [address] [id number] [address] [place] [address] Jan, [facility] [address] [id number] [address] [place] [address] Jan, [facility] [address] [id number] [address] [place] [address] Dec, [facility] [address] [id number] [address] [place] [address], [place] [address] Dec, [facility] [address] [id number] [address] [place] [address], [place] [address] Nov, [facility] [address] [id number] [address] [place] [address], [place] [address] Nov, [facility] [address] [id number] [address] [place] [address], [place] [address] Oct, [facility] [address] [id number] [address] [place] [address], [place] [address] Oct, [facility] [address] [id number] [address] [place] [address], [place] [address] Oct, [facility] [address] [id number] [address] [place] [address], [place] [address] Oct, [facility] [address] [id number] [address] [place] [address], [place] [address] Sep, [facility] [address] [id number] [address] [place] [address], [place] [address] Sep, [facility] [address] [id number] [address] [place] [address], [place] [address] Sep, [facility] [address] [id number] [address] [place] [address], [place] [address] Sep, [facility] [address] [id number] [address] [place] [address], [place] [address] Sep, [facility] [address] [id number] [address] [place] [address], [place] [address] Sep, [facility] [address] [id number] [address] [place] [address], [place] [address] Aug, [facility] [address] [id number] [address] [place] [address], [place] [address] Aug, [facility] [address] [id number] [address] [place] [address], [place] [address] Aug, [facility] [address] [id number] [address] [place] [address], [place] [address] Aug, [facility] [address] [id number] [address] [place] [address], [place] [address] Aug, [facility] [address] [id number] [address] [place] [address], [place] [address] Aug, [facility] [address] [id number] [address] [place] [address], [place] [address] Aug, [facility] [address] [id number] [address] [place] [address], [place] [address] Aug, [facility] [address] [id number] [address] [place] [address], [place] [address] Aug, [facility] [address] [id number] [address] [place] [address], [place] [address] Aug, [facility] [address] [id number] [address] [place] [address], [place] [address] Jul, [facility] [address] [id number] [address] [place] [address], [place] [address] Jul, [facility] [address] [id number] [address] [place] [address], [place] [address] May, [facility] [address] [id number] [address] [place] [address], [place] [address] May, [facility] [address] [id number] [address] [place] [address], [place] [address] May, [facility] [address] [id number] [address] [place] [address], [place] [address] May, [facility] [address] [id number] [address] [place] [address], [place] [address] May, [facility] [address] [id number] [address] [place] [address], [place] [address] May, [facility] [address] [id number] [address] [place] [address], [place] [address] Apr, [facility] [address] [id number] [address] [place] [address], [place] [address] Apr, [facility] [address] [id number] [address] [place] [address], [place] [address] Apr, [facility] [address] [id number] [address] [place] [address], [place] [address] Apr, [facility] [address] [id number] [address] [place] [address], [place] [address] March, [facility] [address] [id number] [address] [place] [address], [place] [address] March, [facility] [address] [id number] [address] [place] [address], [place] [address] Feb, [facility] [address] [id number] [address] [place] [address], [place] [address] Feb, [facility] [address] [id number] [address] [place] [address], [place] [address] Jan, [facility] [address] [id number] [address] [place] [address], [place] [address] Jan, [facility] [address] [id number] [address] [place] [address], [place] [address] Nov, [facility] [address] [id number] [address] [place] [address], [place] [address] Nov, [facility] [address] [id number] [address] [place] [address], [place] [address] Nov, [facility] [address] [id number] [address] [place] [address], [place] [address] Nov, [facility] [address] [id number] [address] [place] [address], [place] [address] Nov, [facility] [address] [id number] [address] [place] [address], [place] [address] Nov, [facility] [address] [id number] [address] [place] [address], [place] [address] Oct, [facility] [address] [id number] [address] [place] [phone] Oct, [facility] [address] [id number] [address] [place] [address], [place] [address] Aug, [facility] [address] [id number] [address] [place] [phone] Aug, [facility] [address] [id number] [address] [place] [address], [place] [address] Jul, [facility] [address] [id number] [address] [place] [address], [place] [address] Jun, [facility] [address] [id number] [address] [place] [phone] Jun, [facility] [address] [id number] [address] [place] [phone] Jun, [facility] [address] [id number] [address] [place] [phone] Jun, [facility] [address] [id number] [address] [place] [id number] Jun, [facility] [address] [id number] [address] [place] [phone] Jun, [facility] [address] [id number] [address] [place] [phone] May, [facility] [address] [id number] [address] [place] [id number] March, [facility] [address] [id number] [address] [place] [id number] March, [facility] [address] [id number] [address] [place] [id number] Jan, IMMUNIZATIONS No Known Immunizations SOCIAL HISTORY Never Assessed REASON FOR VISIT Juancarlos,LAURIA, pt want to discuss his anxeity that he is having PLAN OF CARE Activity Details Follow Up prn Reason: VITAL SIGNS Height 66 in 2018-11-08 Weight 170.5 lbs 2018-11-08 Temperature 97.5 degrees Fahrenheit 2018-11-08 Heart Rate 51 bpm 2018-11-08 Respiratory Rate 20 2018-11-08 Oximetry on room air:100 % 2018-11-08 BMI 27.52 kg/m2 2018-11-08 Blood pressure systolic 120 mmHg 2018-11-08 Blood pressure diastolic 68 mmHg 2018-11-08 MEDICATIONS Medication Instructions Dosage Frequency Start Date End Date Duration S tatus Abilify 15 mg Orally Once a day 1 tablet 24h 30 Aug, 2017 30 day(s) Active Carbidopa-Levodopa 10-100 MG Orally Three times a day 1 tablet 8h 30 days Active Lisinopril 20 mg Orally Once a day TAKE 1 TABLET BY MOUTH DAILY 24h 30 days Active True Metrix Meter w/Device as directed Aug, Active True Metrix Blood Glucose Test - In Vitro 3 times a day as directed 8h Aug, 30 days Active TRUEplus Lancets 30G - as directed 8h Aug, 30 days Active Gabapentin 300 MG Orally 3 times a day TAKE 1 CAPSULE BY MOUTH 3 TI MES A DAY 8h 30 Active Zocor 40 mg Orally Once a day 1 tablet in the evening Once a day O rally 30 24h 30 days Active Glucocard Expression Test - In Vitro 3 times a day as directed 8h Aug, 30 days Active Baclofen 10 mg Orally Three times a day 1 tablet with food or milk 8h 30 Active MetFORMIN HCl ER 500 mg Orally twice a day 1 tablet twice daily wit h food 12h 30 Aug, 2017 30 day(s) Active Carvedilol 6.25 MG Orally 2 times a day TAKE 1 TABLET BY MOUTH TWIC E DAILY 12h 30 days Active Sinemet 10-100 mg Orally Three [...] murmur Medical History parkinson Surgical History cholecystectomy 2000 Surgical History orchiectomy (R) r/t cancer Surgical History full mouth extraction Surgical History appendectomy 1969 Surgical History carpal tunnel 2017 Surgical History Back surgery to remove cyst Hospitalization History surgery Hospitalization History [facility]- Right Leg Pain 09/21/2017 Hospitalization History [facility]- Severe Dehydr ation with Acute Renal Failure 05/06/2018 Hospitalization History Back surgery to remove cyst/ infecti on
--- OUTSIDE RECORDS SUMMARY | 2020-03-23 01:00 | XMS REPORT ---
Author Author Zoran RAMIREZ Organization [facility] Address [address] [place] [address] Care Team Providers Care Branch Credit Counselor Name Role Phone RAMIREZCHERIE RizoELE Unavailable PROBLEMS Type Condition ICD9-CM Code MJE51-HC Code Onset Dates Condition S tatus SNOMED Code Problem Atherosclerotic heart diseas e of [place] coronary artery without angina pectoris I25.10 Active 578320662 Problem Cervical stenosis of spine M48.02 Act cynthia 06432321 Problem Other chronic pain G89.29 Active 8 0370155 Problem Type 2 diabetes mellitus with other specified complication E11.69 Active 0448279 Problem HTN (hypertension) I10 Active 3 2079737 Problem Cervicalgia M54.2 Active 33450740 8302265 Problem Cannabis abuse F12.10 Active 89633 009 Problem Recurrent major depressive disorder, in full remission F33.42 Active 202753504 Problem Hypercholesterolemia E78.0 Active 30849196 Problem Parkinsons disease G20 Active 4 7800925 Problem Lumbar spondylosis M47.816 Active 2 27719193 Problem 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 Active 563441070 ALLERGIES No Information ENCOUNTERS Encounter Location Date Diagnosis [facility] [address] [facility] [id number] [address] [place] [address] May, [facility] [address] [facility] [id number] [address] [place] [address] Apr, [facility] [address] [facility] [id number] [address] [place] [address] Apr, Dehydration E86.0 ; Acute re nal failure, unspecified acute renal failure type N17.9 ; Cannabis abuse F12.10 ; Type 2 diabetes mellitus with other specified complication E11.69 ; HTN (hypertension) I10 ; Parkinsons disease G20 ; Hypercholesterolemia E78.0 ; Atherosclerotic heart disease of [place] coronary artery without angina pectoris I25.10 ; Cervicalgia M54.2 ; Need for hepatitis C screening test Z11.59 and Recurrent major depressive disorder, in full remission F33.42 [place] [address] [address] 18 Apr, 2018 [place] [address] [address] 14 Apr, 2018 Dehydration E86.0 ; Hypotens ion, unspecified hypotension type I95.9 ; Fall, initial encounter W19.XXXA ; Acute head injury without loss of consciousness, initial encounter S09.90XA ; Type 2 diabetes mellitus with other specified complication E11.69 ; HTN (hypertension) I10 and Parkinsons disease G20 [place] [address] [address] 14 Apr, 2018 [place] [address] [address] 12 Apr, 2018 [place] [address] [address] Feb, Cervicalgia M54.2 [place] [address] [address] Feb, Cervical stenosis of spine M 48.02 [place] [address] [address] Jan, Cervicalgia M54.2 [place] [address] [address] Jan, Acute right-sided low back p ain with right-sided sciatica M54.41 [place] [address] [address] Dec, Cervicalgia M54.2 [place] [address] [place] [id number] [place] [address] Dec, Controlled substance agreeme nt signed Z79.899 [place] [address] [address] Oct, Cervicalgia M54.2 [place] [address] [id number] [address] [place] [address] Oct, Acute right-sided low back p ain with right-sided sciatica M54.41 [place] [address] [id number] [address] [place] [address] Oct, [place] [address] [facility] [id number] [address] [place] [address] Sep, Cervicalgia M54.2 [place] [address] [id number] [address] [place] [address] 14 Sep, 2017 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 [place] [address] [id number] [address] [place] [address] 13 Sep, 2017 Lumbar back pain with radicu lopathy affecting right lower extremity M54.17 [place] [address] [facility] [id number] [address] [place] [address] 03 Sep, 2017 Acute right-sided low back p ain with right-sided sciatica M54.41 [place] [address] [facility] [id number] [address] [place] [address] Aug, Type 2 diabetes mellitus wit h other specified complication E11.69 ; HTN (hypertension) I10 ; Cervicalgia M54.2 ; Cervical stenosis of spine M48.02 ; Acute right hip pain M25.551 ; Atherosclerotic heart disease of [place] coronary artery without angina pectoris I25.10 ; Hypercholesterolemia E78.0 ; Parkinsons disease G20 and Depression F32.9 [place] [address] [facility] [id number] [address] [place] [address] Aug, Other chronic pain G89.29 [place] [address] [facility] [id number] [address] [place] [address] Jul, Other chronic pain G89.29 [place] [address] [facility] [id number] [address] [place] [address] Jul, [facility] [address] [id number] [address] [place] [address] Jul, Cough R05 and Bronchitis J40 [facility] [address] [id number] [address] [place] [address] Jun, Other chronic pain G89.29 [facility] [address] [id number] [address] [place] [address] Jun, [facility] [address] [id number] [address] [place] [address] Jun, Atherosclerotic heart diseas e of [place] coronary artery without angina pectoris I25.10 and Cervicalgia M54.2 [facility] [address] [id number] [address] [place] [address] Jun, Cervicalgia M54.2 [facility] [address] [id number] [address] [place] [address] May, Other chronic pain G89.29 [facility] [address] [id number] [address] [place] [address] May, [facility] [address] [id number] [address] [place] [address] May, [facility] [address] [id number] [address] [place] [address] May, [facility] [address] [id number] [address] [place] [address] May, [facility] [address] [id number] [address] [place] [address] May, Type 2 diabetes mellitus wit h other specified complication E11.69 ; HTN (hypertension) I10 ; Atherosclerotic heart disease of [place] coronary artery without angina pectoris I25.10 ; Parkinsons disease G20 and Cervical stenosis of spine M48.02 [facility] [address] [id number] [address] [place] [address] Apr, Cervicalgia M54.2 [facility] [address] [facility] [id number] [address] [place] [address] Apr, Type 2 diabetes mellitus wit h other specified complication E11.69 ; HTN (hypertension) I10 ; Depression F32.9 ; Atherosclerotic heart disease of [place] coronary artery without angina pectoris I25.10 ; Coronary atherosclerosis due to lipid rich plaque I25.83 ; Cervicalgia M54.2 ; Parkinsons disease G20 ; Chronic diarrhea K52.9 and Pure hypercholesterolemia E78.00 [place] [address] [facility] [id number] [address] [place] [address] March, Other chronic pain G89.29 [place] [address] [facility] [id number] [address] [place] [address] March, Other chronic pain G89.29 [place] [address] [facility] [id number] [address] [place] [address] Feb, Cervical stenosis of spine M 48.02 [place] [address] [facility] [id number] [address] [place] [address] Feb, Other chronic pain G89.29 [place] [address] [facility] [id number] [address] [place] [address] Jan, [place] [address] [facility] [id number] [address] [place] [address] Jan, Other chronic pain G89.29 [place] [address] [facility] [id number] [address] [place] [address] Jan, Other chronic pain G89.29 [place] [address] [facility] [id number] [address] [place] [address] Jan, Type 2 diabetes mellitus wit h other specified complication E11.69 ; Atherosclerotic heart disease of [place] coronary artery without angina pectoris I25.10 ; Anxiety F41.9 ; HTN (hypertension) I10 ; Depression F32.9 ; Coronary atherosclerosis due to lipid rich plaque I25.83 ; Cervicalgia M54.2 ; Other chronic pain G89.29 and Functional 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 [place] [address] [address] [address] Nov, HTN (hypertension) I10 [facility] [address] [address] Nov, Type 2 diabetes mellitus wit h other specified complication E11.69 ; Atherosclerotic heart disease of [place] coronary artery without angina pectoris I25.10 ; Hypercholesterolemia E78.0 ; Anxiety F41.9 ; Depression F32.9 ; Cervicalgia M54.2 and Functional 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 [facility] [address] [address] Oct, [facility] [address] [address] Oct, Neck pain M54.2 [facility] [address] [address] Sep, [facility] [address] [address] Aug, [facility] [address] [address] Aug, [facility] [address] [place] [id number] [place] [address] Jul, Visit for TB skin test Z11.1 and Screening for tuberculosis Z11.1 [facility] [address] [address] May, [facility] [address] [address] May, Neck pain M54.2 [facility] [address] [address] May, [facility] [address] [address] Apr, Neck pain M54.2 [facility] [address] [address] Feb, Neck pain M54.2 [facility] [address] [address] Feb, [facility] [address] [address] Jan, Neck pain M54.2 [facility] [address] [address] Jan, [facility] [address] [address] Jan, Neck pain M54.2 [place] [address] [address] Jan, Neck pain M54.2 ; Type 2 sarath betes mellitus with other specified complication E11.69 ; CAD (coronary artery disease) 414.00 ; Insomnia 780.52 ; Anxiety F41.9 ; Depression F32.9 ; Pre-ulcerative calluses L84 and Hypercholesterolemia E78.0 [place] [address] [address] Nov, [place] [address] [address] Nov, Type 2 diabetes mellitus wit h other specified complication E11.69 ; Pre-ulcerative calluses L84 ; HTN (hypertension) I10 ; Hypercholesterolemia E78.0 ; Anxiety F41.9 ; Depression F32.9 ; Environmental allergies Z91.09 and Osteoarthritis M19.90 [place] [address] [address] Sep, [place] [address] [address] Aug, Allergic rhinitis, seasonal J30.2 [place] [address] [address] Jul, [place] [address] [address] Jul, Other specified cardiac dysr hythmias 427.89 ; Essential hypertension, benign 401.1 ; Nondependent tobacco use disorder 305.1 ; Unspecified hereditary and idiopathic peripheral neuropathy 356.9 ; Diabetes mellitus without mention of complication, type II or unspecified type, not stated as uncontrolled 250.00 ; CAD (coronary artery disease) 414.00 ; Insomnia 780.52 and Depression 311 [facility] [address] [id number] [address] [place] [address] Jul, [facility] [address] [id number] [address] [place] [address] Jul, [facility] [address] [id number] [address] [place] [phone] May, [facility] [address] [id number] [address] [place] [address] May, [facility] [address] [facility] [id number] [address] [place] [address] May, [facility] [address] [id number] [address] [place] [address] Apr, [facility] [address] [facility] [id number] [address] [place] [address] Apr, Skin lesion of face 709.9 an d Anxiety 300.00 [facility] [address] [facility] [id number] [address] [place] [address] March, [facility] [address] [facility] [id number] [address] [place] [address] Feb, [facility] [address] [id number] [address] [place] [address] Feb, [facility] [address] [facility] [id number] [address] [place] [address] Jan, [facility] [address] [id number] [address] [place] [id number] Jan, [facility] [address] [facility] [id number] [address] [place] [address] Jan, [facility] [address] [id number] [address] [place] [address], [place] [address] Jan, [facility] [address] [id number] [address] [place] [address], [place] [address] Jan, [facility] [address] [id number] [address] [place] [address], [place] [address] Jan, [facility] [address] [id number] [address] [place] [address], [place] [address] Dec, [facility] [address] [id number] [address] [place] [address], [place] [address] Dec, [facility] [address] [id number] [address] [place] [address], [place] [address] Nov, [facility] [address] [id number] [address] [place] [address], [place] [address] Nov, [facility] [address] [id number] [address] [place] [address], [place] [address] Oct, [facility] [address] [id number] [address] [place] [address], [place] [address] Oct, [facility] [address] [id number] [address] [place] [address], [place] [address] Oct, [facility] [address] [id number] [address] [place] [address], [place] [address] Oct, [facility] [address] [id number] [address] [place] [address], [place] [address] Sep, [facility] [address] [id number] [address] [place] [address], [place] [address] Sep, [facility] [address] [id number] [address] [place] [address], [place] [address] Sep, [facility] [address] [id number] [address] [place] [address], [place] [address] Sep, [facility] [address] [id number] [address] [place] [address], [place] [address] Sep, [facility] [address] [id number] [address] [place] [address], [place] [address] Sep, [facility] [address] [id number] [address] [place] [address], [place] [address] Aug, [facility] [address] [id number] [address] [place] [address], [place] [address] Aug, [facility] [address] [id number] [address] [place] [address], [place] [address] Aug, [facility] [address] [id number] [address] [place] [address], [place] [address] Aug, [facility] [address] [id number] [address] [place] [address], [place] [address] Aug, [facility] [address] [id number] [address] [place] [address], [place] [address] Aug, [facility] [address] [id number] [address] [place] [address], [place] [address] Aug, [facility] [address] [id number] [address] [place] [address], [place] [address] Aug, [facility] [address] [id number] [address] [place] [address], [place] [address] Aug, [facility] [address] [id number] [address] [place] [address], [place] [address] Aug, [facility] [address] [id number] [address] [place] [address], [place] [address] Jul, [facility] [address] [id number] [address] [place] [address], [place] [address] Jul, [facility] [address] [id number] [address] [place] [address], [place] [address] May, [facility] [address] [id number] [address] [place] [address], [place] [address] May, [facility] [address] [id number] [address] [place] [address], [place] [address] May, [facility] [address] [id number] [address] [place] [address], [place] [address] May, [facility] [address] [id number] [address] [place] [address], [place] [address] May, [facility] [address] [id number] [address] [place] [address], [place] [address] May, [facility] [address] [id number] [address] [place] [address], [place] [address] Apr, [facility] [address] [id number] [address] [place] [address], [place] [address] Apr, [facility] [address] [id number] [address] [place] [address], [place] [address] Apr, [facility] [address] [id number] [address] [place] [address], [place] [address] Apr, [facility] [address] [id number] [address] [place] [address], [place] [address] March, [facility] [address] [id number] [address] [place] [address], [place] [address] March, [facility] [address] [id number] [address] [place] [address], [place] [address] Feb, [facility] [address] [id number] [address] [place] [address], [place] [address] Feb, [facility] [address] [id number] [address] [place] [address], [place] [address] Jan, [facility] [address] [id number] [address] [place] [address], [place] [address] Jan, [facility] [address] [id number] [address] [place] [address], [place] [address] Nov, [facility] [address] [id number] [address] [place] [address] Nov, [facility] [address] [id number] [address] [place] [address], [place] [address] Nov, [facility] [address] [id number] [address] [place] [address], [place] [address] Nov, [facility] [address] [id number] [address] [place] [address], [place] [address] Nov, [facility] [address] [id number] [address] [place] [address], [place] [address] Nov, [facility] [address] [id number] [address] [place] [address], [place] [address] Oct, [facility] [address] [id number] [address] [place] [address], [place] [address] Oct, [facility] [address] [id number] [address] [place] [address], [place] [address] Aug, [facility] [address] [id number] [address] [place] [address], [place] [address] Aug, [facility] [address] [id number] [address] [place] [address], [place] [address] Jul, [facility] [address] [id number] [address] [place] [address], [place] [address] Jun, [facility] [address] [id number] [address] [place] [address], [place] [id number] Jun, [facility] [address] [id number] [address] [place] [address], [place] [phone] Jun, [facility] [address] [id number] [address] [place] [address], [place] [phone] Jun, [facility] [address] [id number] [address] [place] [address], [place] [phone] Jun, [facility] [address] [id number] [address] [place] [address], [place] [id number] Jun, [facility] [address] [facility] [id number] [address] [place] [phone] May, [facility] [address] [facility] [id number] [address] [place] [id number] March, [facility] [address] [facility] [id number] [address] [place] [phone] March, [facility] [address] [facility] [id number] [address] [place] [phone] Jan, IMMUNIZATIONS No Known Immunizations SOCIAL HISTORY Never Assessed REASON FOR VISIT Normal lab letter mailed PLAN OF CARE VITAL SIGNS MEDICATIONS Unknown [...] Hospitalization History Via [facility]- Right Leg Pain 09/21/[address] [facility]- Severe Dehydr ation with Acute Renal Failure 05/06/2018 Hospitalization History Back surgery to remove cyst/ infecti on
--- OUTSIDE RECORDS SUMMARY | 2020-03-23 01:01 | XMS REPORT ---
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 Name Role Phone RODOLFO SAHNI Unavailable PROBLEMS Type Condition ICD9-CM Code [id number] Code Onset Dates Condition S tatus SNOMED Code Problem Atherosclerotic heart diseas e of [place] coronary artery without angina pectoris I25.10 Active 507826171 Problem Cervical stenosis of spine M48.02 Act cynthia 41803441 Problem Other chronic pain G89.29 Active 8 2664617 Problem Type 2 diabetes mellitus with other specified complication E11.69 Active 2331934 Problem HTN (hypertension) I10 Active 3 3914868 Problem Cervicalgia M54.2 Active 98207960 0655549 Problem Cannabis abuse F12.10 Active 17773 009 Problem Recurrent major depressive disorder, in full remission F33.42 Active 354352410 Problem Hypercholesterolemia E78.0 Active 81054181 Problem Parkinsons disease G20 Active 4 1244350 Problem Lumbar spondylosis M47.816 Active 2 67677248 Problem 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 Active 250154635 ALLERGIES No Information ENCOUNTERS Encounter Location Date Diagnosis [facility] [address] [facility] [id number] [address] [place] [id number] May, [facility] [address] [facility] [id number] [address] [place] [address] Apr, [facility] [address] [facility] [id number] [address] [place] [address] Apr, Dehydration E86.0 ; Acute re nal failure, unspecified acute renal failure type N17.9 ; Cannabis abuse F12.10 ; Type 2 diabetes mellitus with other specified complication E11.69 ; HTN (hypertension) I10 ; Parkinsons disease G20 ; Hypercholesterolemia E78.0 ; Atherosclerotic heart disease of [place] coronary artery without angina pectoris I25.10 ; Cervicalgia M54.2 ; Need for hepatitis C screening test Z11.59 and Recurrent major depressive disorder, in full remission F33.42 [place] [address] [place] [id number] [address] [place] [address] 18 Apr, 2018 [place] [address] [place] [id number] [address] [place] [address] 14 Apr, 2018 Dehydration E86.0 ; Hypotens ion, unspecified hypotension type I95.9 ; Fall, initial encounter W19.XXXA ; Acute head injury without loss of consciousness, initial encounter S09.90XA ; Type 2 diabetes mellitus with other specified complication E11.69 ; HTN (hypertension) I10 and Parkinsons disease G20 [place] [address] [id number] 14 Apr, 2018 [place] [address] [place] [id number] [place] [address] 12 Apr, 2018 [place] [address] [place] [id number] [address] [place] [address] Feb, Cervicalgia M54.2 [place] [address] [place] [id number] [address] [place] [address] Feb, Cervical stenosis of spine M 48.02 [place] [address] [place] [id number] [address] [place] [address] Jan, Cervicalgia M54.2 [place] [address] [place] [id number] [address] [place] [address] Jan, Acute right-sided low back p ain with right-sided sciatica M54.41 [place] [address] [place] [id number] [address] [place] [address] Dec, Cervicalgia M54.2 [place] [address] [place] [id number] [address] [place] [address] Dec, Controlled substance agreeme nt signed Z79.899 [place] [address] [place] [id number] [address] [place] [address] Oct, Cervicalgia M54.2 [place] [address] [facility] [id number] [address] [place] [address] Oct, Acute right-sided low back p ain with right-sided sciatica M54.41 [place] [address] [id number] [address] [place] [address] Oct, [place] [address] [facility] [id number] [address] [place] [address] Sep, Cervicalgia M54.2 [place] [address] [id number] [address] [place] [address] 14 Sep, 2017 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 [place] [address] [id number] [address] [place] [address] 13 Sep, 2017 Lumbar back pain with radicu lopathy affecting right lower extremity M54.17 [place] [address] [facility] [id number] [address] [place] [address] 03 Sep, 2017 Acute right-sided low back p ain with right-sided sciatica M54.41 [place] [address] [facility] [id number] [address] [place] [address] Aug, Type 2 diabetes mellitus wit h other specified complication E11.69 ; HTN (hypertension) I10 ; Cervicalgia M54.2 ; Cervical stenosis of spine M48.02 ; Acute right hip pain M25.551 ; Atherosclerotic heart disease of [place] coronary artery without angina pectoris I25.10 ; Hypercholesterolemia E78.0 ; Parkinsons disease G20 and Depression F32.9 [place] [address] [facility] [id number] [address] [place] [address] Aug, Other chronic pain G89.29 [place] [address] [facility] [id number] [address] [place] [address] Jul, Other chronic pain G89.29 [place] [address] [facility] [id number] [address] [place] [address] Jul, [facility] [address] [id number] [address] [place] [address] Jul, Cough R05 and Bronchitis J40 [facility] [address] [id number] [address] [place] [address] Jun, Other chronic pain G89.29 [facility] [address] [id number] [address] [place] [address] Jun, [facility] [address] [id number] [address] [place] [address] Jun, Atherosclerotic heart diseas e of [place] coronary artery without angina pectoris I25.10 and Cervicalgia M54.2 [facility] [address] [id number] [address] [place] [address] Jun, Cervicalgia M54.2 [facility] [address] [id number] [address] [place] [address] May, Other chronic pain G89.29 [facility] [address] [id number] [address] [place] [address] May, [facility] [address] [id number] [address] [place] [address] May, [facility] [address] [id number] [address] [place] [address] May, [facility] [address] [id number] [address] [place] [address] May, [facility] [address] [id number] [address] [place] [address] May, Type 2 diabetes mellitus wit h other specified complication E11.69 ; HTN (hypertension) I10 ; Atherosclerotic heart disease of [place] coronary artery without angina pectoris I25.10 ; Parkinsons disease G20 and Cervical stenosis of spine M48.02 [facility] [address] [id number] [address] [place] [address] Apr, Cervicalgia M54.2 [facility] [address] [facility] [id number] [address] [place] [address] Apr, Type 2 diabetes mellitus wit h other specified complication E11.69 ; HTN (hypertension) I10 ; Depression F32.9 ; Atherosclerotic heart disease of [place] coronary artery without angina pectoris I25.10 ; Coronary atherosclerosis due to lipid rich plaque I25.83 ; Cervicalgia M54.2 ; Parkinsons disease G20 ; Chronic diarrhea K52.9 and Pure hypercholesterolemia E78.00 [place] [address] [facility] [id number] [address] [place] [address] March, Other chronic pain G89.29 [place] [address] [facility] [id number] [address] [place] [address] March, Other chronic pain G89.29 [place] [address] [facility] [id number] [address] [place] [address] Feb, Cervical stenosis of spine M 48.02 [place] [address] [facility] [id number] [address] [place] [address] Feb, Other chronic pain G89.29 [place] [address] [facility] [id number] [address] [place] [address] Jan, [place] [address] [place] [id number] [address] [place] [address] Jan, Other chronic pain G89.29 [place] [address] [facility] [id number] [address] [place] [address] Jan, Other chronic pain G89.29 [place] [address] [facility] [id number] [address] [place] [address] Jan, Type 2 diabetes mellitus wit h other specified complication E11.69 ; Atherosclerotic heart disease of [place] coronary artery without angina pectoris I25.10 ; Anxiety F41.9 ; HTN (hypertension) I10 ; Depression F32.9 ; Coronary atherosclerosis due to lipid rich plaque I25.83 ; Cervicalgia M54.2 ; Other chronic pain G89.29 and Functional 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 [place] [address] [facility] [id number] [address] [place] [address] Nov, HTN (hypertension) I10 [facility] [address] [place] [id number] [place] [address] Nov, Type 2 diabetes mellitus wit h other specified complication E11.69 ; Atherosclerotic heart disease of [place] coronary artery without angina pectoris I25.10 ; Hypercholesterolemia E78.0 ; Anxiety F41.9 ; Depression F32.9 ; Cervicalgia M54.2 and Functional 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 [facility] [address] [address] Oct, [facility] [address] [address] Oct, Neck pain M54.2 [facility] [address] [place] [id number] [place] [address] Sep, [facility] [address] [address] Aug, [facility] [address] [address] Aug, [facility] [address] [place] [id number] [place] [address] Jul, Screening for tuberculosis Z 11.1 and Visit for TB skin test Z11.1 [facility] [address] [address] May, [facility] [address] [place] [id number] [place] [address] May, Neck pain M54.2 [facility] [address] [place] [id number] [place] [address] May, [facility] [address] [place] [id number] [place] [address] Apr, Neck pain M54.2 [facility] [address] [place] [id number] [place] [address] Feb, Neck pain M54.2 [facility] [address] [address] Feb, [facility] [address] [address] Jan, Neck pain M54.2 [facility] [address] [place] [id number] [place] [address] Jan, [facility] [address] [address] Jan, Neck pain M54.2 [place] [address] [address] Jan, Neck pain M54.2 ; Type 2 sarath betes mellitus with other specified complication E11.69 ; CAD (coronary artery disease) 414.00 ; Insomnia 780.52 ; Anxiety F41.9 ; Depression F32.9 ; Pre-ulcerative calluses L84 and Hypercholesterolemia E78.0 [place] [address] [address] Nov, [place] [address] [address] Nov, Type 2 diabetes mellitus wit h other specified complication E11.69 ; Pre-ulcerative calluses L84 ; HTN (hypertension) I10 ; Hypercholesterolemia E78.0 ; Anxiety F41.9 ; Depression F32.9 ; Environmental allergies Z91.09 and Osteoarthritis M19.90 [place] [address] [address] Sep, [place] [address] [address] Aug, Allergic rhinitis, seasonal J30.2 [place] [address] [place] [id number] [place] [address] Jul, [place] [address] [address] Jul, Other specified cardiac dysr hythmias 427.89 ; Essential hypertension, benign 401.1 ; Nondependent tobacco use disorder 305.1 ; Unspecified hereditary and idiopathic peripheral neuropathy 356.9 ; Diabetes mellitus without mention of complication, type II or unspecified type, not stated as uncontrolled 250.00 ; CAD (coronary artery disease) 414.00 ; Insomnia 780.52 and Depression 311 [facility] [address] [id number] [address] [place] [address] Jul, [facility] [address] [id number] [address] [place] [address] Jul, [facility] [address] [id number] [address] [place] [address] May, [facility] [address] [facility] [id number] [address] [place] [address] May, [facility] [address] [place] [id number] [address] [place] [address] May, [facility] [address] [facility] [id number] [address] [place] [address] Apr, [facility] [address] [facility] [id number] [address] [place] [address] Apr, Skin lesion of face 709.9 an d Anxiety 300.00 [facility] [address] [place] [id number] [address] [place] [address] March, [facility] [address] [facility] [id number] [address] [place] [address] Feb, [facility] [address] [id number] [address] [place] [address] Feb, [facility] [address] [facility] [id number] [address] [place] [address] Jan, [facility] [address] [id number] [address] [place] [address] Jan, [facility] [address] [place] [id number] [address] [place] [address] Jan, [facility] [address] [id number] [address] [place] [address], [place] [address] Jan, [facility] [address] [id number] [address] [place] [address], [place] [address] Jan, [facility] [address] [id number] [address] [place] [address], [place] [address] Jan, [facility] [address] [id number] [address] [place] [address], [place] [address] Dec, [facility] [address] [id number] [address] [place] [address], [place] [address] Dec, [facility] [address] [id number] [address] [place] [address], [place] [address] Nov, [facility] [address] [id number] [address] [place] [address], [place] [address] Nov, [facility] [address] [id number] [address] [place] [address], [place] [address] Oct, [facility] [address] [id number] [address] [place] [address], [place] [address] Oct, [facility] [address] [id number] [address] [place] [address], [place] [address] Oct, [facility] [address] [id number] [address] [place] [address], [place] [address] Oct, [facility] [address] [id number] [address] [place] [address], [place] [address] Sep, [facility] [address] [id number] [address] [place] [address], [place] [address] Sep, [facility] [address] [id number] [address] [place] [address], [place] [address] Sep, [facility] [address] [id number] [address] [place] [address], [place] [address] Sep, [facility] [address] [id number] [address] [place] [address], [place] [address] Sep, [facility] [address] [id number] [address] [place] [address], [place] [address] Sep, [facility] [address] [id number] [address] [place] [address], [place] [address] Aug, [facility] [address] [id number] [address] [place] [address], [place] [address] Aug, [facility] [address] [id number] [address] [place] [address], [place] [address] Aug, [facility] [address] [id number] [address] [place] [address], [place] [address] Aug, [facility] [address] [id number] [address] [place] [address], [place] [address] Aug, [facility] [address] [id number] [address] [place] [address], [place] [address] Aug, [facility] [address] [id number] [address] [place] [address], [place] [address] Aug, [facility] [address] [id number] [address] [place] [address], [place] [address] Aug, [facility] [address] [id number] [address] [place] [address], [place] [address] Aug, [facility] [address] [id number] [address] [place] [address], [place] [address] Aug, [facility] [address] [id number] [address] [place] [address], [place] [address] Jul, [facility] [address] [id number] [address] [place] [address], [place] [address] Jul, [facility] [address] [id number] [address] [place] [address], [place] [address] May, [facility] [address] [id number] [address] [place] [address], [place] [address] May, [facility] [address] [id number] [address] [place] [address], [place] [address] May, [facility] [address] [id number] [address] [place] [address], [place] [address] May, [facility] [address] [id number] [address] [place] [address], [place] [address] May, [facility] [address] [id number] [address] [place] [address], [place] [address] May, [facility] [address] [id number] [address] [place] [address], [place] [address] Apr, [facility] [address] [id number] [address] [place] [address], [place] [address] Apr, [facility] [address] [id number] [address] [place] [address], [place] [address] Apr, [facility] [address] [id number] [address] [place] [address], [place] [address] Apr, [facility] [address] [id number] [address] [place] [address], [place] [address] March, [facility] [address] [id number] [address] [place] [address], [place] [address] March, [facility] [address] [id number] [address] [place] [address], [place] [address] Feb, [facility] [address] [id number] [address] [place] [address], [place] [address] Feb, [facility] [address] [id number] [address] [place] [address], [place] [address] Jan, [facility] [address] [id number] [address] [place] [address], [place] [address] Jan, [facility] [address] [id number] [address] [place] [address], [place] [address] Nov, [facility] [address] [id number] [address] [place] [address], [place] [address] Nov, [facility] [address] [id number] [address] [place] [address], [place] [address] Nov, [facility] [address] [id number] [address] [place] [address], [place] [address] Nov, [facility] [address] [id number] [address] [place] [address], [place] [address] Nov, [facility] [address] [id number] [address] [place] [address], [place] [address] Nov, [facility] [address] [id number] [address] [place] [address], [place] [address] Oct, [facility] [address] [id number] [address] [place] [address], [place] [address] Oct, [facility] [address] [id number] [address] [place] [address], [place] [address] Aug, [facility] [address] [id number] [address] [place] [address], [place] [address] Aug, [facility] [address] [id number] [address] [place] [address], [place] [address] Jul, [facility] [address] [id number] [address] [place] [address], [place] [address] Jun, [facility] [address] [id number] [address] [place] [address], [place] [address] Jun, [facility] [address] [id number] [address] [place] [address], [place] [address] Jun, [facility] [address] [id number] [address] [place] [address], [place] [address] Jun, [facility] [address] [id number] [address] [place] [address], [place] [address] Jun, [facility] [address] [id number] [address] [place] [address], [place] [address] Jun, [facility] [address] [id number] [address] [place] [address] May, [facility] [address] [facility] [id number] [address] [place] [address] March, [facility] [address] [facility] [id number] [address] [place] [address] March, [facility] [address] [facility] [id number] [address] [place] [address] Jan, IMMUNIZATIONS No Known Immunizations SOCIAL HISTORY Never Assessed REASON FOR VISIT Medication List Updated PLAN OF CARE VITAL SIGNS MEDICATIONS Medication Instructions Dosage Frequency Start Date End Date Duration S anitha Trazodone HCl 100 mg Orally Once a day at hs 2 tablet Active Blood Glucose Test Strip Jul, 30 days Unknown Gabapentin 300 MG TAKE 1 CAPSULE BY MOUTH 3 TIMES A DAY 30 Active Zocor 40 MG 1 tablet in the evening Once a day Orally 30 Active Zoloft 100 mg Oral Once a day 1 tab 24h Un known Baclofen 10 mg Orally Three times a day 1 tablet with food or milk 8h May, 30 day(s) Active buspirone 30 mg by oral route 2 times a day take 1 table t (30 mg) by oral route 2 times per day 12h Aug, Unknown Lomotil 2.5-0.025 MG 2 tablet by Oral route 3 times pe r day PRN Oct, Unknown Carbidopa-Levodopa 10-100 MG Orally Three times a day 1 tablet 8h Active Ultram 50 mg Orally 2 times a day 1 tablet as needed 12h 14 days Unknown ProAir HFA 108 (90 Base) MCG/ACT Inhalation every 4 hrs 2 puffs as needed 4h Jul, 7 days Unknown MetFORMIN HCl ER 500 mg Orally twice a day 1 tablet twice daily wit h food 12h Aug, 30 day(s) Active Blood Glucose Monitor Dx 250.00 Jul, Unknown Lisinopril 20 mg Orally Once a day TAKE 1 TABLET BY MOUTH DAILY 24h Active Abilify 15 mg Orally Once a day 1 tablet 24h Aug, 30 day(s) Active Claritin 10 MG 1 tablet Once a day Orally Unknown Carvedilol 6.25 MG Orally 2 times a day TAKE 1 TABLET BY MOUTH TWIC E DAILY 12h 90 days Active Viagra 25 mg 1 tablet by Oral route 1 time per day 25 No v, 2014 Unknown RESULTS No Results PROCEDURES No Known procedures [...] Hospitalization History surgery Hospitalization History [facility]- Right Leg Pain 09/21/2017 Hospitalization History [facility]- Severe Dehydr ation with Acute Renal Failure 05/06/2018 Hospitalization History Back surgery to remove cyst/ infecti on
--- OUTSIDE RECORDS SUMMARY | 2020-03-23 01:01 | XMS REPORT ---
Author Author Zoran RAMIREZ Organization [facility] Address [address] [place] [address] Care Team Providers Care Graphic Artist Name Role Phone RAMIREZCHERIE RizoELE Unavailable PROBLEMS Type Condition ICD9-CM Code DLC63-CY Code Onset Dates Condition S tatus SNOMED Code Problem Atherosclerotic heart diseas e of [place] coronary artery without angina pectoris I25.10 Active 801936498 Problem Cervical stenosis of spine M48.02 Act cynthia 99689763 Problem Other chronic pain G89.29 Active 8 7796981 Problem Type 2 diabetes mellitus with other specified complication E11.69 Active 3099352 Problem HTN (hypertension) I10 Active 3 3508749 Problem Cervicalgia M54.2 Active 53629478 1021086 Problem Cannabis abuse F12.10 Active 50674 009 Problem Recurrent major depressive disorder, in full remission F33.42 Active 829538767 Problem Hypercholesterolemia E78.0 Active 33888450 Problem Parkinsons disease G20 Active 4 6566426 Problem Lumbar spondylosis M47.816 Active 2 06351774 Problem 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 Active [id number] ALLERGIES No Known Allergies ENCOUNTERS Encounter Location Date Diagnosis [facility] [address] [facility] [id number] [address] [place] [address] May, [facility] [address] [facility] [id number] [address] [place] [address] Apr, [facility] [address] [facility] [id number] [address] [place] [address] Apr, Dehydration E86.0 ; Acute re nal [...] major depressive disorder, in full remission F33.42 [place] [address] [address] 18 Apr, 2018 [place] [address] [place] [id number] [place] [address] 14 Apr, 2018 Dehydration E86.0 ; Hypotens ion, unspecified hypotension type I95.9 ; Fall, initial encounter W19.XXXA ; Acute head injury without loss of consciousness, initial encounter S09.90XA ; Type 2 diabetes mellitus with other specified complication E11.69 ; HTN (hypertension) I10 and Parkinsons disease G20 [place] [address] [address] 14 Apr, 2018 [place] [address] [address] 12 Apr, 2018 [place] [address] [address] Feb, Cervicalgia M54.2 [place] [address] [address] Feb, Cervical stenosis of spine M 48.02 [place] [address] [address] Jan, Cervicalgia M54.2 [place] [address] [address] Jan, Acute right-sided low back p ain with right-sided sciatica M54.41 [place] [address] [place] [id number] [address] [place] [address] Dec, Cervicalgia M54.2 [place] [address] [place] [id number] [place] [address] 02 Dec, 2017 Controlled substance agreeme nt signed Z79.899 [place] [address] [address] Oct, Cervicalgia M54.2 [place] [address] [facility] [id number] [address] [place] [address] Oct, Acute right-sided low back p ain with right-sided sciatica M54.41 [place] [address] [facility] [id number] [address] [place] [address] Oct, [place] [address] [facility] [id number] [address] [place] [address] Sep, Cervicalgia M54.2 [place] [address] 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 [id number] [address] [place] [address] 13 Sep, 2017 Lumbar back pain with radicu lopathy affecting right lower extremity M54.17 [place] [address] [facility] [id number] [address] [place] [address] 03 Sep, 2017 Acute right-sided low back p ain with right-sided sciatica M54.41 [place] [address] [facility] [id number] [address] [place] [address] Aug, Type 2 diabetes mellitus wit h other specified complication E11.69 ; HTN (hypertension) I10 ; Cervicalgia M54.2 ; Cervical stenosis of spine M48.02 ; Acute right hip pain M25.551 ; Atherosclerotic heart disease of [place] coronary artery without angina pectoris I25.10 ; Hypercholesterolemia E78.0 ; Parkinsons disease G20 and Depression F32.9 [place] [address] [facility] [id number] [address] [place] [address] Aug, Other chronic pain G89.29 [place] [address] [facility] [id number] [address] [place] [address] Jul, Other chronic pain G89.29 [place] [address] [place] [id number] [address] [place] [address] Jul, [facility] [address] [id number] [address] [place] [address] Jul, Cough R05 and Bronchitis J40 [facility] [address] [id number] [address] [place] [address] Jun, Other chronic pain G89.29 [facility] [address] [id number] [address] [place] [address] Jun, [facility] [address] [id number] [address] [place] [address] Jun, Atherosclerotic heart diseas e of [place] coronary artery without angina pectoris I25.10 and Cervicalgia M54.2 [facility] [address] [id number] [address] [place] [address] Jun, Cervicalgia M54.2 [facility] [address] [id number] [address] [place] [address] May, Other chronic pain G89.29 [facility] [address] [id number] [address] [place] [address] May, [facility] [address] [id number] [address] [place] [address] May, [facility] [address] [id number] [address] [place] [address] May, [facility] [address] [facility] [id number] [address] [place] [address] May, [facility] [address] [id number] [address] [place] [address] May, Type 2 diabetes mellitus wit h other specified complication E11.69 ; HTN (hypertension) I10 ; Atherosclerotic heart disease of [place] coronary artery without angina pectoris I25.10 ; Parkinsons disease G20 and Cervical stenosis of spine M48.02 [facility] [address] [id number] [address] [place] [address] Apr, Cervicalgia M54.2 [facility] [address] [facility] [id number] [address] [place] [address] Apr, Type 2 diabetes mellitus wit h other specified complication E11.69 ; HTN (hypertension) I10 ; Depression F32.9 ; Atherosclerotic heart disease of [place] coronary artery without angina pectoris I25.10 ; Coronary atherosclerosis due to lipid rich plaque I25.83 ; Cervicalgia M54.2 ; Parkinsons disease G20 ; Chronic diarrhea K52.9 and Pure hypercholesterolemia E78.00 [place] [address] [facility] [id number] [address] [place] [address] March, Other chronic pain G89.29 [place] [address] [facility] [id number] [address] [place] [address] March, Other chronic pain G89.29 [place] [address] [facility] [id number] [address] [place] [address] Feb, Cervical stenosis of spine M 48.02 [place] [address] [facility] [id number] [address] [place] [address] Feb, Other chronic pain G89.29 [place] [address] [facility] [id number] [address] [place] [address] Jan, [place] [address] [facility] [id number] [address] [place] [address] Jan, Other chronic pain G89.29 [place] [address] [facility] [id number] [address] [place] [address] Jan, Other chronic pain G89.29 [place] [address] [facility] [id number] [address] [place] [address] Jan, Type 2 diabetes mellitus wit h other specified complication E11.69 ; Atherosclerotic heart disease of [place] coronary artery without angina pectoris I25.10 ; Anxiety F41.9 ; HTN (hypertension) I10 ; Depression F32.9 ; Coronary atherosclerosis due to lipid rich plaque I25.83 ; Cervicalgia M54.2 ; Other chronic pain G89.29 and Functional 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 [place] [address] [address] Nov, HTN (hypertension) I10 [facility] [address] [address] Nov, Type 2 diabetes mellitus wit h other specified complication E11.69 ; Atherosclerotic heart disease of [place] coronary artery without angina pectoris I25.10 ; Hypercholesterolemia E78.0 ; Anxiety F41.9 ; Depression F32.9 ; Cervicalgia M54.2 and Functional 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 [facility] [address] [address] Oct, [facility] [address] [address] Oct, Neck pain M54.2 [facility] [address] [address] Sep, [facility] [address] [address] Aug, [facility] [address] [address] Aug, [facility] [address] [address] Jul, Screening for tuberculosis Z 11.1 and Visit for TB skin test Z11.1 [facility] [address] [address] May, [facility] [address] [address] May, Neck pain M54.2 [facility] [address] [address] May, [facility] [address] [address] Apr, Neck pain M54.2 [facility] [address] [address] Feb, Neck pain M54.2 [facility] [address] [address] Feb, [facility] [address] [address] Jan, Neck pain M54.2 [facility] [address] [address] Jan, [facility] [address] [address] Jan, Neck pain M54.2 [place] [address] [address] Jan, Neck pain M54.2 ; Type 2 sarath betes mellitus with other specified complication E11.69 ; CAD (coronary artery disease) 414.00 ; Insomnia 780.52 ; Anxiety F41.9 ; Depression F32.9 ; Pre-ulcerative calluses L84 and Hypercholesterolemia E78.0 [place] [address] [address] Nov, [place] [address] [address] Nov, Type 2 diabetes mellitus wit h other specified complication E11.69 ; Pre-ulcerative calluses L84 ; HTN (hypertension) I10 ; Hypercholesterolemia E78.0 ; Anxiety F41.9 ; Depression F32.9 ; Environmental allergies Z91.09 and Osteoarthritis M19.90 [place] [address] [address] Sep, [place] [address] [address] Aug, Allergic rhinitis, seasonal J30.2 [facility] [address] [place] [id number] [place] [address] Jul, [place] [address] [address] Jul, Other specified cardiac dysr hythmias 427.89 ; Essential hypertension, benign 401.1 ; Nondependent tobacco use disorder 305.1 ; Unspecified hereditary and idiopathic peripheral neuropathy 356.9 ; Diabetes mellitus without mention of complication, type II or unspecified type, not stated as uncontrolled 250.00 ; CAD (coronary artery disease) 414.00 ; Insomnia 780.52 and Depression 311 [facility] [address] [id number] [address] [place] [address] Jul, [facility] [address] [id number] [address] [place] [address] Jul, [facility] [address] [id number] [address] [place] [address] May, [facility] [address] [facility] [id number] [address] [place] [address] May, [facility] [address] [place] [id number] [address] [place] [address] May, [facility] [address] [facility] [id number] [address] [place] [address] Apr, [facility] [address] [place] [id number] [address] [place] [address] Apr, Skin lesion of face 709.9 an d Anxiety 300.00 [facility] [address] [facility] [id number] [address] [place] [address] March, [facility] [address] [facility] [id number] [address] [place] [address] Feb, [facility] [address] [facility] [id number] [address] [place] [address] Feb, [facility] [address] [facility] [id number] [address] [place] [address] Jan, [facility] [address] [facility] [id number] [address] [place] [address] Jan, [facility] [address] [place] [id number] [address] [place] [address] Jan, [facility] [address] [id number] [address] [place] [address], [place] [address] Jan, [facility] [address] [id number] [address] [place] [address], [place] [address] Jan, [facility] [address] [id number] [address] [place] [address], [place] [address] Jan, [facility] [address] [id number] [address] [place] [address], [place] [address] Dec, [facility] [address] [id number] [address] [place] [address], [place] [address] Dec, [facility] [address] [id number] [address] [place] [address], [place] [address] Nov, [facility] [address] [id number] [address] [place] [address], [place] [address] Nov, [facility] [address] [id number] [address] [place] [address], [place] [address] Oct, [facility] [address] [id number] [address] [place] [address], [place] [address] Oct, [facility] [address] [id number] [address] [place] [address], [place] [address] Oct, [facility] [address] [id number] [address] [place] [address], [place] [address] Oct, [facility] [address] [id number] [address] [place] [address], [place] [address] Sep, [facility] [address] [id number] [address] [place] [address], [place] [address] Sep, [facility] [address] [id number] [address] [place] [address], [place] [address] Sep, [facility] [address] [id number] [address] [place] [address], [place] [address] Sep, [facility] [address] [id number] [address] [place] [address], [place] [address] Sep, [facility] [address] [id number] [address] [place] [address], [place] [address] Sep, [facility] [address] [id number] [address] [place] [address], [place] [address] Aug, [facility] [address] [id number] [address] [place] [address], [place] [address] Aug, [facility] [address] [id number] [address] [place] [address], [place] [address] Aug, [facility] [address] [id number] [address] [place] [address], [place] [address] Aug, [facility] [address] [id number] [address] [place] [address], [place] [address] Aug, [facility] [address] [id number] [address] [place] [address], [place] [address] Aug, [facility] [address] [id number] [address] [place] [address], [place] [address] Aug, [facility] [address] [id number] [address] [place] [address], [place] [address] Aug, [facility] [address] [id number] [address] [place] [address], [place] [address] Aug, [facility] [address] [id number] [address] [place] [address], [place] [address] Aug, [facility] [address] [id number] [address] [place] [address], [place] [address] Jul, [facility] [address] [id number] [address] [place] [address], [place] [address] Jul, [facility] [address] [id number] [address] [place] [address], [place] [address] May, [facility] [address] [id number] [address] [place] [address], [place] [address] May, [facility] [address] [id number] [facility] [place] [address] May, [facility] [address] [id number] [address] [place] [address], [place] [address] May, [facility] [address] [id number] [address] [place] [address], [place] [address] May, [facility] [address] [id number] [address] [place] [address], [place] [address] May, [facility] [address] [id number] [address] [place] [address], [place] [address] Apr, [facility] [address] [id number] [address] [place] [address], [place] [address] Apr, [facility] [address] [id number] [address] [place] [address], [place] [address] Apr, [facility] [address] [id number] [address] [place] [address], [place] [address] Apr, [facility] [address] [id number] [address] [place] [address], [place] [address] March, [facility] [address] [id number] [address] [place] [address], [place] [address] March, [facility] [address] [id number] [address] [place] [address], [place] [address] Feb, [facility] [address] [id number] [address] [place] [address], [place] [address] Feb, [facility] [address] [id number] [address] [place] [address], [place] [address] Jan, [facility] [address] [id number] [address] [place] [address], [place] [address] Jan, [facility] [address] [id number] [address] [place] [address], [place] [address] Nov, [facility] [address] [id number] [address] [place] [address], [place] [address] Nov, [facility] [address] [id number] [address] [place] [address], [place] [address] Nov, [facility] [address] [id number] [address] [place] [address], [place] [address] Nov, [facility] [address] [id number] [address] [place] [address], [place] [address] Nov, [facility] [address] [id number] [address] [place] [address], [place] [address] Nov, [facility] [address] [id number] [address] [place] [address], [place] [address] Oct, [facility] [address] [id number] [address] [place] [address], [place] [address] Oct, [facility] [address] [id number] [address] [place] [address], [place] [address] Aug, [facility] [address] [id number] [address] [place] [address], [place] [address] Aug, [facility] [address] [id number] [address] [place] [address], [place] [address] Jul, [facility] [address] [id number] [address] [place] [address], [place] [address] Jun, [facility] [address] [id number] [address] [place] [address], [place] [address] Jun, [facility] [address] [id number] [address] [place] [address], [place] [address] Jun, [facility] [address] [id number] [address] [place] [address], [place] [address] Jun, [facility] [address] [id number] [address] [place] [address], [place] [address] Jun, [facility] [address] [id number] [address] [place] [address], [place] [address] Jun, [facility] [address] [facility] [id number] [address] [place] [id number] May, [facility] [address] [facility] [id number] [address] [place] [id number] March, [facility] [address] [facility] [id number] [address] [place] [id number] March, [facility] [address] [facility] [id number] [address] [place] [id number] Jan, IMMUNIZATIONS No Known Immunizations SOCIAL HISTORY Never Assessed REASON FOR VISIT lose balance, get real dizzy at times and feel light headed, and not eating well , losing wieght, hands and arms are shaking-NATALIE palmer PLAN OF CARE Activity Details Follow Up 2 Weeks Reason:post hospital DC VITAL SIGNS Height 66 in 2018-05-04 Heart Rate 80 bpm 2018-05-04 Blood pressure systolic 68 mmHg 2018-05-04 Blood pressure diastolic 40 mmHg 2018-05-04 MEDICATIONS Medication Instructions Dosage Frequency Start Date End Date Duration S tatus MetFORMIN HCl ER 500 mg Orally twice a day 1 tablet twice daily wit h food 12h Aug, 30 day(s) Active Zoloft 100 mg Oral Once a day 1 tab 24h No t-Taking Baclofen 10 mg Orally Three times a day 1 tablet with food or milk 8h May, 30 day(s) Active Mobic 7.5 MG 1 tablet twice a day Orally 30 days 30 Active Ultram 50 mg Orally 2 times a day 1 tablet as needed 12h 14 days Not-Taking Blood Glucose Test Strip Jul, 30 days Not-Taking Blood Glucose Monitor Dx 250.00 Jul, Not-Taking Zocor 40 MG 1 tablet in the evening Once a day Orally 30 Not-Taking Viagra 25 mg 1 tablet by Oral route 1 time per day 2013 Not-Taking Lisinopril 20 mg Orally Once a day TAKE 1 TABLET BY MOUTH DAILY 24h Not-Taking Abilify 15 mg Orally Once a day 1 tablet 24h Aug, 30 day(s) Active Claritin 10 MG 1 tablet Once a day Orally Unknown Gabapentin 300 MG TAKE 1 CAPSULE BY MOUTH 3 TIMES A DAY 30 Active Carvedilol 6.25 MG Orally 2 times a day TAKE 1 TABLET BY MOUTH TWIC E DAILY 12h 90 days Active Lomotil 2.5-0.025 MG 2 tablet by Oral route 3 times pe r day PRN Oct, Not-Taking ProAir HFA 108 (90 Base) MCG/ACT Inhalation every 4 hrs 2 puffs as needed 4h 19 Jul, 2017 7 days Active buspirone 30 mg by oral route 2 times a day take 1 table t (30 mg) by oral route 2 times per day 12h 22 Aug, 2014 Not-Taking RESULTS Name Result Date Reference Range GLUCOSE FINGERSTICK (IN HOUSE) 2018-05-04 GLU FINGERSTICK 74 mg/dL PC 6 hours Lot # [id number] Exp date 16 June 2018 HEMOGLOBIN (IN HOUSE) 2018-05-04 HEMOGLOBIN 14.3 11.5 - 16 gm/dL Lot # [id number] Exp date 29 Aug 2019 PROCEDURES Procedure Date Ordered Result Body Site EKG, TRACING (IN-HOUSE) 2018-05-04 N/A HEMOGLOBIN May 04, 2018 ELECTROCARDIOGRAM, TRACING May 04, 2018 VENIPUNCT, ROUTINE* May 04, 2018 [facility] VISIT ESTABLISHED PATIENT May 04, 2018 INSTRUCTIONS MEDICATIONS ADMINISTERED No Known Medications [...] Hospital- Right Leg Pain 09/21/[address] [facility]- Severe Dehydr ation with Acute Renal Failure 05/06/2018 Hospitalization History Back surgery to remove cyst/ infecti on
--- OUTSIDE RECORDS SUMMARY | 2020-03-23 01:01 | XMS REPORT ---
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 Name Role Phone RAMIREZCHERIE RizoELE Unavailable PROBLEMS Type Condition ICD9-CM Code IAA70-UV Code Onset Dates Condition S tatus SNOMED Code Problem Atherosclerotic heart diseas e of [place] coronary artery without angina pectoris I25.10 Active 426562159 Problem Cervical stenosis of spine M48.02 Act cynthia 25170692 Problem Other chronic pain G89.29 Active 8 0548720 Problem Type 2 diabetes mellitus with other specified complication E11.69 Active 0781782 Problem HTN (hypertension) I10 Active 3 7855237 Problem Cervicalgia M54.2 Active 97685633 9136231 Problem Cannabis abuse F12.10 Active 02141 009 Problem Recurrent major depressive disorder, in full remission F33.42 Active 036710539 Problem Hypercholesterolemia E78.0 Active 27088583 Problem Parkinsons disease G20 Active 4 8369586 Problem Lumbar spondylosis M47.816 Active 2 42044967 Problem 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 Active 290508207 ALLERGIES No Information ENCOUNTERS Encounter Location Date Diagnosis [facility] [address] [facility] [id number] [address] [place] [id number] May, [facility] [address] [facility] [id number] [address] [place] [id number] Apr, [facility] [address] [facility] [id number] [address] [place] [id number] Apr, Dehydration E86.0 ; Acute re nal failure, unspecified acute renal failure type N17.9 ; Cannabis abuse F12.10 ; Type 2 diabetes mellitus with other specified complication E11.69 ; HTN (hypertension) I10 ; Parkinsons disease G20 ; Hypercholesterolemia E78.0 ; Atherosclerotic heart disease of [place] coronary artery without angina pectoris I25.10 ; Cervicalgia M54.2 ; Need for hepatitis C screening test Z11.59 and Recurrent major depressive disorder, in full remission F33.42 [facility] [place] [address] [address] 18 Apr, 2018 [place] [address] [address] 14 Apr, 2018 Dehydration E86.0 ; Hypotens ion, unspecified hypotension type I95.9 ; Fall, initial encounter W19.XXXA ; Acute head injury without loss of consciousness, initial encounter S09.90XA ; Type 2 diabetes mellitus with other specified complication E11.69 ; HTN (hypertension) I10 and Parkinsons disease G20 [facility] [address] [address] 14 Apr, 2018 [place] [address] [address] 12 Apr, 2018 [place] [address] [address] Feb, Cervicalgia M54.2 [place] [address] [address] Feb, Cervical stenosis of spine M 48.02 [place] [address] [address] Jan, Cervicalgia M54.2 [place] [address] [address] Jan, Acute right-sided low back p ain with right-sided sciatica M54.41 [place] [address] [address] Dec, Cervicalgia M54.2 [facility] [place] [address] [place] [id number] [place] [address] Dec, Controlled substance agreeme nt signed Z79.899 [place] [address] [address] Oct, Cervicalgia M54.2 [place] [address] [id number] [address] [place] [address] Oct, Acute right-sided low back p ain with right-sided sciatica M54.41 [place] [address] [id number] [address] [place] [phone] Oct, [place] [address] [facility] [id number] [address] [place] [address] Sep, Cervicalgia M54.2 [place] [address] [id number] [address] [place] [address] 14 Sep, 2017 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 [place] [address] [id number] [address] [place] [id number] 13 Sep, 2017 Lumbar back pain with radicu lopathy affecting right lower extremity M54.17 [place] [address] [facility] [id number] [address] [place] [id number] 03 Sep, 2017 Acute right-sided low back p ain with right-sided sciatica M54.41 [place] [address] [facility] [id number] [address] [place] [id number] Aug, Type 2 diabetes mellitus wit h other specified complication E11.69 ; HTN (hypertension) I10 ; Cervicalgia M54.2 ; Cervical stenosis of spine M48.02 ; Acute right hip pain M25.551 ; Atherosclerotic heart disease of [place] coronary artery without angina pectoris I25.10 ; Hypercholesterolemia E78.0 ; Parkinsons disease G20 and Depression F32.9 [place] [address] [facility] [id number] [address] [place] [phone] Aug, Other chronic pain G89.29 [place] [address] [facility] [id number] [address] [place] [id number] Jul, Other chronic pain G89.29 [place] [address] [facility] [id number] [address] [place] [address] Jul, [facility] [address] [id number] [address] [place] [address] Jul, Cough R05 and Bronchitis J40 [facility] [address] [id number] [address] [place] [address] Jun, Other chronic pain G89.29 [facility] [address] [id number] [address] [place] [address] Jun, [facility] [address] [id number] [address] [place] [address] Jun, Atherosclerotic heart diseas e of [place] coronary artery without angina pectoris I25.10 and Cervicalgia M54.2 [facility] [address] [id number] [address] [place] [address] Jun, Cervicalgia M54.2 [facility] [address] [id number] [address] [place] [address] May, Other chronic pain G89.29 [facility] [address] [id number] [address] [place] [address] May, [facility] [address] [id number] [address] [place] [address] May, [facility] [address] [id number] [address] [place] [address] May, [facility] [address] [id number] [address] [place] [address] May, [facility] [address] [id number] [address] [place] [address] May, Type 2 diabetes mellitus wit h other specified complication E11.69 ; HTN (hypertension) I10 ; Atherosclerotic heart disease of [place] coronary artery without angina pectoris I25.10 ; Parkinsons disease G20 and Cervical stenosis of spine M48.02 [facility] [address] [id number] [address] [place] [address] Apr, Cervicalgia M54.2 [facility] [address] [facility] [id number] [address] [place] [address] Apr, Type 2 diabetes mellitus wit h other specified complication E11.69 ; HTN (hypertension) I10 ; Depression F32.9 ; Atherosclerotic heart disease of [place] coronary artery without angina pectoris I25.10 ; Coronary atherosclerosis due to lipid rich plaque I25.83 ; Cervicalgia M54.2 ; Parkinsons disease G20 ; Chronic diarrhea K52.9 and Pure hypercholesterolemia E78.00 [place] [address] [facility] [id number] [address] [place] [address] March, Other chronic pain G89.29 [place] [address] [facility] [id number] [address] [place] [address] March, Other chronic pain G89.29 [place] [address] [facility] [id number] [address] [place] [address] Feb, Cervical stenosis of spine M 48.02 [place] [address] [facility] [id number] [address] [place] [address] Feb, Other chronic pain G89.29 [place] [address] [facility] [id number] [address] [place] [address] Jan, [place] [address] [facility] [id number] [address] [place] [address] Jan, Other chronic pain G89.29 [place] [address] [facility] [id number] [address] [place] [address] Jan, Other chronic pain G89.29 [place] [address] [facility] [id number] [address] [place] [address] Jan, Type 2 diabetes mellitus wit h other specified complication E11.69 ; Atherosclerotic heart disease of [place] coronary artery without angina pectoris I25.10 ; Anxiety F41.9 ; HTN (hypertension) I10 ; Depression F32.9 ; Coronary atherosclerosis due to lipid rich plaque I25.83 ; Cervicalgia M54.2 ; Other chronic pain G89.29 and Functional 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 [place] [address] [place] [address] [address] Nov, HTN (hypertension) I10 [facility] [address] [address] Nov, Type 2 diabetes mellitus wit h other specified complication E11.69 ; Atherosclerotic heart disease of [place] coronary artery without angina pectoris I25.10 ; Hypercholesterolemia E78.0 ; Anxiety F41.9 ; Depression F32.9 ; Cervicalgia M54.2 and Functional 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 [facility] [address] [address] Oct, [facility] [address] [address] Oct, Neck pain M54.2 [facility] [address] [address] Sep, [facility] [address] [address] Aug, [facility] [address] [address] Aug, [facility] [address] [place] [id number] [place] [address] Jul, Screening for tuberculosis Z 11.1 and Visit for TB skin test Z11.1 [facility] [address] [address] May, [facility] [address] [address] May, Neck pain M54.2 [facility] [address] [address] May, [facility] [address] [address] Apr, Neck pain M54.2 [facility] [address] [address] Feb, Neck pain M54.2 [facility] [address] [address] Feb, [facility] [address] [address] Jan, Neck pain M54.2 [facility] [address] [address] Jan, [facility] [address] [address] Jan, Neck pain M54.2 [place] [address] [address] Jan, Neck pain M54.2 ; Type 2 sarath betes mellitus with other specified complication E11.69 ; CAD (coronary artery disease) 414.00 ; Insomnia 780.52 ; Anxiety F41.9 ; Depression F32.9 ; Pre-ulcerative calluses L84 and Hypercholesterolemia E78.0 [place] [address] [address] Nov, [place] [address] [address] Nov, Type 2 diabetes mellitus wit h other specified complication E11.69 ; Pre-ulcerative calluses L84 ; HTN (hypertension) I10 ; Hypercholesterolemia E78.0 ; Anxiety F41.9 ; Depression F32.9 ; Environmental allergies Z91.09 and Osteoarthritis M19.90 [place] [address] [address] Sep, [place] [address] [address] Aug, Allergic rhinitis, seasonal J30.2 [place] [address] [address] Jul, [place] [address] [address] Jul, Other specified cardiac dysr hythmias 427.89 ; Essential hypertension, benign 401.1 ; Nondependent tobacco use disorder 305.1 ; Unspecified hereditary and idiopathic peripheral neuropathy 356.9 ; Diabetes mellitus without mention of complication, type II or unspecified type, not stated as uncontrolled 250.00 ; CAD (coronary artery disease) 414.00 ; Insomnia 780.52 and Depression 311 [facility] [address] [id number] [address] [place] [address] Jul, [facility] [address] [id number] [address] [place] [address] Jul, [facility] [address] [id number] [address] [place] [address] May, [facility] [address] [id number] [address] [place] [address] May, [facility] [address] [facility] [id number] [address] [place] [address] May, [facility] [address] [id number] [address] [place] [address] Apr, [facility] [address] [facility] [id number] [address] [place] [address] Apr, Skin lesion of face 709.9 an d Anxiety 300.00 [facility] [address] [facility] [id number] [address] [place] [id number] March, [facility] [address] [facility] [id number] [address] [place] [address] Feb, [facility] [address] [id number] [address] [place] [address] Feb, [facility] [address] [facility] [id number] [address] [place] [id number] Jan, [facility] [address] [id number] [address] [place] [phone] Jan, [facility] [address] [facility] [id number] [address] [place] [id number] Jan, [facility] [address] [id number] [address] [place] [address], [place] [address] Jan, [facility] [address] [id number] [address] [place] [address], [place] [address] Jan, [facility] [address] [id number] [address] [place] [address], [place] [address] Jan, [facility] [address] [id number] [address] [place] [address], [place] [address] Dec, [facility] [address] [id number] [address] [place] [address], [place] [address] Dec, [facility] [address] [id number] [address] [place] [address], [place] [address] Nov, [facility] [address] [id number] [address] [place] [address], [place] [address] Nov, [facility] [address] [id number] [address] [place] [address], [place] [address] Oct, [facility] [address] [id number] [address] [place] [address], [place] [address] Oct, [facility] [address] [id number] [address] [place] [address], [place] [address] Oct, [facility] [address] [id number] [address] [place] [address], [place] [address] Oct, [facility] [address] [id number] [address] [place] [address], [place] [address] Sep, [facility] [address] [id number] [address] [place] [address], [place] [address] Sep, [facility] [address] [id number] [address] [place] [address], [place] [address] Sep, [facility] [address] [id number] [address] [place] [address], [place] [address] Sep, [facility] [address] [id number] [address] [place] [address], [place] [address] Sep, [facility] [address] [id number] [address] [place] [address], [place] [address] Sep, [facility] [address] [id number] [address] [place] [address], [place] [address] Aug, [facility] [address] [id number] [address] [place] [address], [place] [address] Aug, [facility] [address] [id number] [address] [place] [address], [place] [address] Aug, [facility] [address] [id number] [address] [place] [address], [place] [address] Aug, [facility] [address] [id number] [address] [place] [address], [place] [address] Aug, [facility] [address] [id number] [address] [place] [address], [place] [address] Aug, [facility] [address] [id number] [address] [place] [address], [place] [address] Aug, [facility] [address] [id number] [address] [place] [address], [place] [address] Aug, [facility] [address] [id number] [address] [place] [address], [place] [address] Aug, [facility] [address] [id number] [address] [place] [address], [place] [address] Aug, [facility] [address] [id number] [address] [place] [address], [place] [address] Jul, [facility] [address] [id number] [address] [place] [address], [place] [address] Jul, [facility] [address] [id number] [address] [place] [address], [place] [address] May, [facility] [address] [id number] [address] [place] [address], [place] [address] May, [facility] [address] [id number] [address] [place] [address], [place] [address] May, [facility] [address] [id number] [address] [place] [address], [place] [address] May, [facility] [address] [id number] [address] [place] [address], [place] [address] May, [facility] [address] [id number] [address] [place] [address], [place] [address] May, [facility] [address] [id number] [address] [place] [address], [place] [address] Apr, [facility] [address] [id number] [address] [place] [address], [place] [address] Apr, [facility] [address] [id number] [address] [place] [address], [place] [address] Apr, [facility] [address] [id number] [address] [place] [address], [place] [address] Apr, [facility] [address] [id number] [address] [place] [address], [place] [address] March, [facility] [address] [id number] [address] [place] [address], [place] [address] March, [facility] [address] [id number] [address] [place] [address], [place] [address] Feb, [facility] [address] [id number] [address] [place] [address], [place] [address] Feb, [facility] [address] [id number] [address] [place] [address], [place] [address] Jan, [facility] [address] [id number] [address] [place] [address], [place] [address] Jan, [facility] [address] [id number] [address] [place] [address], [place] [address] Nov, [facility] [address] [id number] [address] [place] [address] Nov, [facility] [address] [id number] [address] [place] [address], [place] [address] Nov, [facility] [address] [id number] [address] [place] [address], [place] [address] Nov, [facility] [address] [id number] [address] [place] [address], [place] [address] Nov, [facility] [address] [id number] [address] [place] [address], [place] [address] Nov, [facility] [address] [id number] [address] [place] [address], [place] [address] Oct, [facility] [address] [id number] [address] [place] [address], [place] [address] Oct, [facility] [address] [id number] [address] [place] [address], [place] [address] Aug, [facility] [address] [id number] [address] [place] [address], [place] [address] Aug, [facility] [address] [id number] [address] [place] [address], [place] [address] Jul, [facility] [address] [id number] [address] [place] [address], [place] [address] Jun, [facility] [address] [id number] [address] [place] [address], [place] [address] Jun, [facility] [address] [id number] [address] [place] [address], [place] [address] Jun, [facility] [address] [id number] [address] [place] [address], [place] [address] Jun, [facility] [address] [id number] [address] [place] [address], [place] [address] Jun, [facility] [address] [id number] [address] [place] [address], [place] [address] Jun, [facility] [address] [facility] [id number] [address] [place] [address] May, [facility] [address] [facility] [id number] [address] [place] [id number] March, [facility] [address] [facility] [id number] [address] [place] [id number] March, [facility] [address] [facility] [id number] [address] [place] [address] Jan, IMMUNIZATIONS No Known Immunizations SOCIAL HISTORY Never Assessed REASON FOR VISIT fall PLAN OF CARE VITAL SIGNS MEDICATIONS Unknown [...] cyst Hospitalization History surgery Hospitalization History [facility]- Right Leg Pain 09/21/2017 Hospitalization History [facility]- Severe Dehydr ation with Acute Renal Failure 05/06/2018 Hospitalization History Back surgery to remove cyst/ infecti on
--- OUTSIDE RECORDS SUMMARY | 2020-03-23 01:01 | XMS REPORT ---
Author Author Zoran RAMIREZ Organization [facility] Address [address] [place] [address] Care Team Providers Care Supervisor Display Fabrication Name Role Phone RAMIREZCHERIE RizoELE Unavailable PROBLEMS Type Condition ICD9-CM Code AVS22-GZ Code Onset Dates Condition S tatus SNOMED Code Problem Atherosclerotic heart diseas e of [place] coronary artery without angina pectoris I25.10 Active 497231849 Problem Cervical stenosis of spine M48.02 Act cynthia 97335580 Problem Other chronic pain G89.29 Active 8 6699878 Problem Type 2 diabetes mellitus with other specified complication E11.69 Active 7904569 Problem HTN (hypertension) I10 Active 3 8507753 Problem Cervicalgia M54.2 Active 45303024 2599338 Problem Cannabis abuse F12.10 Active 53295 009 Problem Recurrent major depressive disorder, in full remission F33.42 Active 941518929 Problem Hypercholesterolemia E78.0 Active 03505750 Problem Parkinsons disease G20 Active 4 9380840 Problem Lumbar spondylosis M47.816 Active 2 96530570 Problem 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 Active 472115391 ALLERGIES No Information ENCOUNTERS Encounter Location Date Diagnosis [facility] [address] [facility] [id number] [address] [place] [address] May, [facility] [address] [facility] [id number] [address] [place] [address] Apr, [facility] [address] [facility] [id number] [address] [place] [address] Apr, Dehydration E86.0 ; Acute re nal failure, unspecified acute renal failure type N17.9 ; Cannabis abuse F12.10 ; Type 2 diabetes mellitus with other specified complication E11.69 ; HTN (hypertension) I10 ; Parkinsons disease G20 ; Hypercholesterolemia E78.0 ; Atherosclerotic heart disease of [place] coronary artery without angina pectoris I25.10 ; Cervicalgia M54.2 ; Need for hepatitis C screening test Z11.59 and Recurrent major depressive disorder, in full remission F33.42 [place] [address] [address] 18 Apr, 2018 [place] [address] [address] 14 Apr, 2018 Dehydration E86.0 ; Hypotens ion, unspecified hypotension type I95.9 ; Fall, initial encounter W19.XXXA ; Acute head injury without loss of consciousness, initial encounter S09.90XA ; Type 2 diabetes mellitus with other specified complication E11.69 ; HTN (hypertension) I10 and Parkinsons disease G20 [place] [address] [address] 14 Apr, 2018 [place] [address] [address] 12 Apr, 2018 [place] [address] [address] Feb, Cervicalgia M54.2 [place] [address] [address] Feb, Cervical stenosis of spine M 48.02 [place] [address] [address] Jan, Cervicalgia M54.2 [place] [address] [address] Jan, Acute right-sided low back p ain with right-sided sciatica M54.41 [place] [address] [address] Dec, Cervicalgia M54.2 [place] [address] [place] [id number] [place] [id number] Dec, Controlled substance agreeme nt signed Z79.899 [place] [address] [address] Oct, Cervicalgia M54.2 [place] [address] [id number] [address] [place] [phone] Oct, Acute right-sided low back p ain with right-sided sciatica M54.41 [place] [address] [id number] [address] [place] [address] Oct, [place] [address] [facility] [id number] [address] [place] [address] Sep, Cervicalgia M54.2 [place] [address] [id number] [address] [place] [address] 14 Sep, 2017 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 [place] [address] [id number] [address] [place] [id number] 13 Sep, 2017 Lumbar back pain with radicu lopathy affecting right lower extremity M54.17 [place] [address] [facility] [id number] [address] [place] [id number] 03 Sep, 2017 Acute right-sided low back p ain with right-sided sciatica M54.41 [place] [address] [facility] [id number] [address] [place] [address] Aug, Type 2 diabetes mellitus wit h other specified complication E11.69 ; HTN (hypertension) I10 ; Cervicalgia M54.2 ; Cervical stenosis of spine M48.02 ; Acute right hip pain M25.551 ; Atherosclerotic heart disease of [place] coronary artery without angina pectoris I25.10 ; Hypercholesterolemia E78.0 ; Parkinsons disease G20 and Depression F32.9 [place] [address] [facility] [id number] [address] [place] [address] Aug, Other chronic pain G89.29 [place] [address] [facility] [id number] [address] [place] [phone] Jul, Other chronic pain G89.29 [place] [address] [facility] [id number] [address] [place] [id number] Jul, [facility] [address] [id number] [address] [place] [phone] Jul, Cough R05 and Bronchitis J40 [facility] [address] [id number] [address] [place] [id number] Jun, Other chronic pain G89.29 [facility] [address] [id number] [address] [place] [id number] Jun, [facility] [address] [id number] [address] [place] [phone] Jun, Atherosclerotic heart diseas e of [place] coronary artery without angina pectoris I25.10 and Cervicalgia M54.2 [facility] [address] [id number] [address] [place] [address] Jun, Cervicalgia M54.2 [facility] [address] [id number] [address] [place] [address] May, Other chronic pain G89.29 [facility] [address] [id number] [address] [place] [id number] May, [facility] [address] [id number] [address] [place] [address] May, [facility] [address] [id number] [address] [place] [phone] May, [facility] [address] [id number] [address] [place] [address] May, [facility] [address] [id number] [address] [place] [address] May, Type 2 diabetes mellitus wit h other specified complication E11.69 ; HTN (hypertension) I10 ; Atherosclerotic heart disease of [place] coronary artery without angina pectoris I25.10 ; Parkinsons disease G20 and Cervical stenosis of spine M48.02 [facility] [address] [id number] [address] [place] [address] Apr, Cervicalgia M54.2 [facility] [address] [facility] [id number] [address] [place] [address] Apr, Type 2 diabetes mellitus wit h other specified complication E11.69 ; HTN (hypertension) I10 ; Depression F32.9 ; Atherosclerotic heart disease of [place] coronary artery without angina pectoris I25.10 ; Coronary atherosclerosis due to lipid rich plaque I25.83 ; Cervicalgia M54.2 ; Parkinsons disease G20 ; Chronic diarrhea K52.9 and Pure hypercholesterolemia E78.00 [place] [address] [facility] [id number] [address] [place] [address] March, Other chronic pain G89.29 [place] [address] [facility] [id number] [address] [place] [address] March, Other chronic pain G89.29 [place] [address] [facility] [id number] [address] [place] [address] Feb, Cervical stenosis of spine M 48.02 [place] [address] [facility] [id number] [address] [place] [address] Feb, Other chronic pain G89.29 [place] [address] [facility] [id number] [address] [place] [address] Jan, [place] [address] [facility] [id number] [address] [place] [address] Jan, Other chronic pain G89.29 [place] [address] [facility] [id number] [address] [place] [address] Jan, Other chronic pain G89.29 [place] [address] [facility] [id number] [address] [place] [address] Jan, Type 2 diabetes mellitus wit h other specified complication E11.69 ; Atherosclerotic heart disease of [place] coronary artery without angina pectoris I25.10 ; Anxiety F41.9 ; HTN (hypertension) I10 ; Depression F32.9 ; Coronary atherosclerosis due to lipid rich plaque I25.83 ; Cervicalgia M54.2 ; Other chronic pain G89.29 and Functional 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 [place] [address] [place] [address] [address] Nov, HTN (hypertension) I10 [facility] [address] [address] Nov, Type 2 diabetes mellitus wit h other specified complication E11.69 ; Atherosclerotic heart disease of [place] coronary artery without angina pectoris I25.10 ; Hypercholesterolemia E78.0 ; Anxiety F41.9 ; Depression F32.9 ; Cervicalgia M54.2 and Functional 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 [facility] [address] [address] Oct, [facility] [address] [address] Oct, Neck pain M54.2 [facility] [address] [address] Sep, [facility] [address] [address] Aug, [facility] [address] [address] Aug, [facility] [address] [place] [id number] [place] [phone] Jul, Visit for TB skin test Z11.1 and Screening for tuberculosis Z11.1 [facility] [address] [address] May, [facility] [address] [address] May, Neck pain M54.2 [facility] [address] [address] May, [facility] [address] [address] Apr, Neck pain M54.2 [facility] [address] [address] Feb, Neck pain M54.2 [facility] [address] [address] Feb, [facility] [address] [address] Jan, Neck pain M54.2 [facility] [address] [address] Jan, [facility] [address] [address] Jan, Neck pain M54.2 [place] [address] [address] Jan, Neck pain M54.2 ; Type 2 sarath betes mellitus with other specified complication E11.69 ; CAD (coronary artery disease) 414.00 ; Insomnia 780.52 ; Anxiety F41.9 ; Depression F32.9 ; Pre-ulcerative calluses L84 and Hypercholesterolemia E78.0 [place] [address] [address] Nov, [place] [address] [address] Nov, Type 2 diabetes mellitus wit h other specified complication E11.69 ; Pre-ulcerative calluses L84 ; HTN (hypertension) I10 ; Hypercholesterolemia E78.0 ; Anxiety F41.9 ; Depression F32.9 ; Environmental allergies Z91.09 and Osteoarthritis M19.90 [place] [address] [address] Sep, [place] [address] [address] Aug, Allergic rhinitis, seasonal J30.2 [place] [address] [address] Jul, [place] [address] [address] Jul, Other specified cardiac dysr hythmias 427.89 ; Essential hypertension, benign 401.1 ; Nondependent tobacco use disorder 305.1 ; Unspecified hereditary and idiopathic peripheral neuropathy 356.9 ; Diabetes mellitus without mention of complication, type II or unspecified type, not stated as uncontrolled 250.00 ; CAD (coronary artery disease) 414.00 ; Insomnia 780.52 and Depression 311 [facility] [address] [id number] [address] [place] [address] Jul, [facility] [address] [id number] [address] [place] [phone] Jul, [facility] [address] [id number] [address] [place] [address] May, [facility] [address] [id number] [address] [place] [address] May, [facility] [address] [facility] [id number] [address] [place] [address] May, [facility] [address] [id number] [address] [place] [address] Apr, [facility] [address] [facility] [id number] [address] [place] [address] Apr, Skin lesion of face 709.9 an d Anxiety 300.00 [facility] [address] [facility] [id number] [address] [place] [address] March, [facility] [address] [facility] [id number] [address] [place] [address] Feb, [facility] [address] [id number] [address] [place] [phone] Feb, [facility] [address] [facility] [id number] [address] [place] [phone] Jan, [facility] [address] [id number] [address] [place] [phone] Jan, [facility] [address] [facility] [id number] [address] [place] [phone] Jan, [facility] [address] [id number] [address] [place] [address], [place] [address] Jan, [facility] [address] [id number] [address] [place] [address], [place] [address] Jan, [facility] [address] [id number] [address] [place] [address], [place] [address] Jan, [facility] [address] [id number] [address] [place] [address], [place] [address] Dec, [facility] [address] [id number] [address] [place] [address], [place] [address] Dec, [facility] [address] [id number] [address] [place] [address], [place] [address] Nov, [facility] [address] [id number] [address] [place] [address], [place] [address] Nov, [facility] [address] [id number] [address] [place] [address], [place] [address] Oct, [facility] [address] [id number] [address] [place] [address], [place] [address] Oct, [facility] [address] [id number] [address] [place] [address], [place] [address] Oct, [facility] [address] [id number] [address] [place] [address], [place] [address] Oct, [facility] [address] [id number] [address] [place] [address], [place] [address] Sep, [facility] [address] [id number] [address] [place] [address], [place] [address] Sep, [facility] [address] [id number] [address] [place] [address], [place] [address] Sep, [facility] [address] [id number] [address] [place] [address], [place] [address] Sep, [facility] [address] [id number] [address] [place] [address], [place] [address] Sep, [facility] [address] [id number] [address] [place] [address], [place] [address] Sep, [facility] [address] [id number] [address] [place] [address], [place] [address] Aug, [facility] [address] [id number] [address] [place] [address], [place] [address] Aug, [facility] [address] [id number] [address] [place] [address], [place] [address] Aug, [facility] [address] [id number] [address] [place] [address], [place] [address] Aug, [facility] [address] [id number] [address] [place] [address], [place] [address] Aug, [facility] [address] [id number] [address] [place] [address], [place] [address] Aug, [facility] [address] [id number] [address] [place] [address], [place] [address] Aug, [facility] [address] [id number] [address] [place] [address], [place] [address] Aug, [facility] [address] [id number] [address] [place] [address], [place] [address] Aug, [facility] [address] [id number] [address] [place] [address], [place] [address] Aug, [facility] [address] [id number] [address] [place] [address], [place] [address] Jul, [facility] [address] [id number] [address] [place] [address], [place] [address] Jul, [facility] [address] [id number] [address] [place] [address], [place] [address] May, [facility] [address] [id number] [address] [place] [address], [place] [address] May, [facility] [address] [id number] [address] [place] [address], [place] [address] May, [facility] [address] [id number] [address] [place] [address], [place] [address] May, [facility] [address] [id number] [address] [place] [address], [place] [address] May, [facility] [address] [id number] [address] [place] [address], [place] [address] May, [facility] [address] [id number] [address] [place] [address], [place] [address] Apr, [facility] [address] [id number] [address] [place] [address], [place] [address] Apr, [facility] [address] [id number] [address] [place] [address], [place] [address] Apr, [facility] [address] [id number] [address] [place] [address], [place] [address] Apr, [facility] [address] [id number] [address] [place] [address], [place] [address] March, [facility] [address] [id number] [address] [place] [address], [place] [address] March, [facility] [address] [id number] [address] [place] [address], [place] [address] Feb, [facility] [address] [id number] [address] [place] [address], [place] [address] Feb, [facility] [address] [id number] [address] [place] [address], [place] [address] Jan, [facility] [address] [id number] [address] [place] [address], [place] [address] Jan, [facility] [address] [id number] [address] [place] [address], [place] [address] Nov, [facility] [address] [id number] [address] [place] [id number] Nov, [facility] [address] [id number] [address] [place] [address], [place] [address] Nov, [facility] [address] [id number] [address] [place] [address], [place] [address] Nov, [facility] [address] [id number] [address] [place] [address], [place] [address] Nov, [facility] [address] [id number] [address] [place] [address], [place] [address] Nov, [facility] [address] [id number] [address] [place] [address], [place] [address] Oct, [facility] [address] [id number] [address] [place] [address], [place] [address] Oct, [facility] [address] [id number] [address] [place] [address], [place] [address] Aug, [facility] [address] [id number] [address] [place] [address], [place] [address] Aug, [facility] [address] [id number] [address] [place] [address], [place] [address] Jul, [facility] [address] [id number] [address] [place] [address], [place] [address] Jun, [facility] [address] [id number] [address] [place] [address], [place] [address] Jun, [facility] [address] [id number] [address] [place] [address], [place] [address] Jun, [facility] [address] [id number] [address] [place] [address], [place] [address] Jun, [facility] [address] [id number] [address] [place] [address], [place] [address] Jun, [facility] [address] [id number] [address] [place] [address], [place] [address] Jun, [facility] [address] [facility] [id number] [address] [place] [id number] May, [facility] [address] [facility] [id number] [address] [place] [id number] March, [facility] [address] [facility] [id number] [address] [place] [id number] March, [facility] [address] [facility] [id number] [address] [place] [id number] Jan, IMMUNIZATIONS No Known Immunizations SOCIAL HISTORY Never Assessed REASON FOR VISIT Medication refill request PLAN OF CARE VITAL SIGNS MEDICATIONS Medication Instructions Dosage Frequency Start Date End Date Duration S tatus Meloxicam 7.5 MG TAKE 1 TABLET BY MOUTH TWICE A DAY 30 Active MetFORMIN HCl ER 500 mg Orally twice a day 1 tablet twice daily with food 12h 30 Active RESULTS No Results PROCEDURES [...] cyst Hospitalization History surgery Hospitalization History [facility]- Right Leg Pain 09/21/2017 Hospitalization History [facility]- Severe Dehydr ation with Acute Renal Failure 05/06/2018 Hospitalization History Back surgery to remove cyst/ infecti on
--- OUTSIDE RECORDS SUMMARY | 2020-03-23 01:01 | XMS REPORT ---
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 Active 174193109 Problem Cervical stenosis of spine M48.02 Act cynthia 72683149 Problem Other chronic pain G89.29 Active 8 4774016 Problem Type 2 diabetes mellitus with other specified complication E11.69 Active 3895053 Problem HTN (hypertension) I10 Active 3 7548468 Problem Cervicalgia M54.2 Active 89729157 7342813 Problem Cannabis abuse F12.10 Active 93503 009 Problem Recurrent major depressive disorder, in full remission F33.42 Active 199937650 Problem Hypercholesterolemia E78.0 Active 14502656 Problem Parkinsons disease G20 Active 4 8836484 Problem Lumbar spondylosis M47.816 Active 2 82966189 Problem 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 Active 846044796 ALLERGIES No Known Allergies ENCOUNTERS Encounter Location Date Diagnosis [facility] [address] [facility] [id number] [address] [place] [address] May, [facility] [address] [facility] [id number] [address] [place] [address] Apr, [facility] [address] [facility] [id number] [address] [place] [address] Apr, Dehydration E86.0 ; Acute re nal failure, unspecified acute renal failure type N17.9 ; Cannabis abuse F12.10 ; Type 2 diabetes mellitus with other specified complication E11.69 ; HTN (hypertension) I10 ; Parkinsons disease G20 ; Hypercholesterolemia E78.0 ; 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 ; Cervicalgia M54.2 ; Need for hepatitis C screening test Z11.59 and Recurrent major depressive disorder, in full remission F33.42 [place] [address] [address] 18 Apr, 2018 [place] [address] [place] [id number] [place] [address] 14 Apr, 2018 Dehydration E86.0 ; Hypotens ion, unspecified hypotension type I95.9 ; Fall, initial encounter W19.XXXA ; Acute head injury without loss of consciousness, initial encounter S09.90XA ; Type 2 diabetes mellitus with other specified complication E11.69 ; HTN (hypertension) I10 and Parkinsons disease G20 [place] [address] [address] 14 Apr, 2018 [place] [address] [address] 12 Apr, 2018 [place] [address] [address] Feb, Cervicalgia M54.2 [place] [address] [address] Feb, Cervical stenosis of spine M 48.02 [place] [address] [address] Jan, Cervicalgia M54.2 [place] [address] [address] Jan, Acute right-sided low back p ain with right-sided sciatica M54.41 [place] [address] [place] [id number] [address] [place] [address] Dec, Cervicalgia M54.2 [place] [address] [place] [id number] [place] [address] 02 Dec, 2017 Controlled substance agreeme nt signed Z79.899 [place] [address] [address] Oct, Cervicalgia M54.2 [place] [address] [facility] [id number] [address] [place] [address] Oct, Acute right-sided low back p ain with right-sided sciatica M54.41 [place] [address] [facility] [id number] [address] [place] [address] Oct, [place] [address] [facility] [id number] [address] [place] [address] Sep, Cervicalgia M54.2 [place] [address] [facility] [id number] [address] [place] [address] 14 Sep, 2017 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 [place] [address] [facility] [id number] [address] [place] [address] 13 Sep, 2017 Lumbar back pain with radicu lopathy affecting right lower extremity M54.17 [place] [address] [facility] [id number] [address] [place] [address] 03 Sep, 2017 Acute right-sided low back p ain with right-sided sciatica M54.41 [place] [address] [facility] [id number] [address] [place] [address] Aug, Type 2 diabetes mellitus wit h other specified complication E11.69 ; HTN (hypertension) I10 ; Cervicalgia M54.2 ; Cervical stenosis of spine M48.02 ; Acute right hip pain M25.551 ; 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 ; Hypercholesterolemia E78.0 ; Parkinsons disease G20 and Depression F32.9 [place] [address] [facility] [id number] [address] [place] [address] Aug, Other chronic pain G89.29 [place] [address] [facility] [id number] [address] [place] [address] Jul, Other chronic pain G89.29 [place] [address] [place] [id number] [address] [place] [address] Jul, [facility] [address] [id number] [address] [place] [address] Jul, Cough R05 and Bronchitis J40 [facility] [address] [id number] [address] [place] [address] Jun, Other chronic pain G89.29 [facility] [address] [id number] [address] [place] [address] Jun, [facility] [address] [id number] [address] [place] [address] Jun, 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 and Cervicalgia M54.2 [facility] [address] [id number] [address] [place] [address] Jun, Cervicalgia M54.2 [facility] [address] [id number] [address] [place] [address] May, Other chronic pain G89.29 [facility] [address] [id number] [address] [place] [address] May, [facility] [address] [id number] [address] [place] [address] May, [facility] [address] [id number] [address] [place] [address] May, [facility] [address] [facility] [id number] [address] [place] [address] May, [facility] [address] [id number] [address] [place] [address] May, Type 2 diabetes mellitus wit h other specified complication E11.69 ; HTN (hypertension) I10 ; 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 ; Parkinsons disease G20 and Cervical stenosis of spine M48.02 [facility] [address] [id number] [address] [place] [address] Apr, Cervicalgia M54.2 [facility] [address] [facility] [id number] [address] [place] [address] Apr, Type 2 diabetes mellitus wit h other specified complication E11.69 ; HTN (hypertension) I10 ; Depression F32.9 ; 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 ; Coronary atherosclerosis due to lipid rich plaque I25.83 ; Cervicalgia M54.2 ; Parkinsons disease G20 ; Chronic diarrhea K52.9 and Pure hypercholesterolemia E78.00 [place] [address] [facility] [id number] [address] [place] [address] March, Other chronic pain G89.29 [place] [address] [facility] [id number] [address] [place] [address] March, Other chronic pain G89.29 [place] [address] [facility] [id number] [address] [place] [address] Feb, Cervical stenosis of spine M 48.02 [place] [address] [facility] [id number] [address] [place] [address] Feb, Other chronic pain G89.29 [place] [address] [facility] [id number] [address] [place] [address] Jan, [place] [address] [facility] [id number] [address] [place] [address] Jan, Other chronic pain G89.29 [place] [address] [facility] [id number] [address] [place] [address] Jan, Other chronic pain G89.29 [place] [address] [facility] [id number] [address] [place] [address] Jan, Type 2 diabetes mellitus wit h other specified complication E11.69 ; 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 ; Anxiety F41.9 ; HTN (hypertension) I10 ; Depression F32.9 ; Coronary atherosclerosis due to lipid rich plaque I25.83 ; Cervicalgia M54.2 ; Other chronic pain G89.29 and Functional 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 [place] [address] [address] Nov, HTN (hypertension) I10 [facility] [address] [address] Nov, Type 2 diabetes mellitus wit h other specified complication E11.69 ; 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 ; Hypercholesterolemia E78.0 ; Anxiety F41.9 ; Depression F32.9 ; Cervicalgia M54.2 and Functional 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 [facility] [address] [address] Oct, [facility] [address] [address] Oct, Neck pain M54.2 [facility] [address] [address] Sep, [facility] [address] [address] Aug, [facility] [address] [address] Aug, [facility] [address] [address] Jul, Visit for TB skin test Z11.1 and Screening for tuberculosis Z11.1 [facility] [address] [address] May, [facility] [address] [address] May, Neck pain M54.2 [facility] [address] [address] May, [facility] [address] [address] Apr, Neck pain M54.2 [facility] [address] [address] Feb, Neck pain M54.2 [facility] [address] [address] Feb, [facility] [address] [address] Jan, Neck pain M54.2 [facility] [address] [address] Jan, [facility] [address] [address] Jan, Neck pain M54.2 [place] [address] [address] Jan, Neck pain M54.2 ; Type 2 sarath betes mellitus with other specified complication E11.69 ; CAD (coronary artery disease) 414.00 ; Insomnia 780.52 ; Anxiety F41.9 ; Depression F32.9 ; Pre-ulcerative calluses L84 and Hypercholesterolemia E78.0 [place] [address] [address] Nov, [place] [address] [address] Nov, Type 2 diabetes mellitus wit h other specified complication E11.69 ; Pre-ulcerative calluses L84 ; HTN (hypertension) I10 ; Hypercholesterolemia E78.0 ; Anxiety F41.9 ; Depression F32.9 ; Environmental allergies Z91.09 and Osteoarthritis M19.90 [place] [address] [address] Sep, [place] [address] [address] Aug, Allergic rhinitis, seasonal J30.2 [facility] [address] [place] [id number] [place] [address] Jul, [place] [address] [address] Jul, Other specified cardiac dysr hythmias 427.89 ; Essential hypertension, benign 401.1 ; Nondependent tobacco use disorder 305.1 ; Unspecified hereditary and idiopathic peripheral neuropathy 356.9 ; Diabetes mellitus without mention of complication, type II or unspecified type, not stated as uncontrolled 250.00 ; CAD (coronary artery disease) 414.00 ; Insomnia 780.52 and Depression 311 [facility] [address] [id number] [address] [place] [address] Jul, [facility] [address] [id number] [address] [place] [address] Jul, [facility] [address] [id number] [address] [place] [address] May, [facility] [address] [facility] [id number] [address] [place] [address] May, [facility] [address] [place] [id number] [address] [place] [address] May, [facility] [address] [facility] [id number] [address] [place] [address] Apr, [facility] [address] [place] [id number] [address] [place] [address] Apr, Skin lesion of face 709.9 an d Anxiety 300.00 [facility] [address] [facility] [id number] [address] [place] [address] March, [facility] [address] [facility] [id number] [address] [place] [address] Feb, [facility] [address] [facility] [id number] [address] [place] [address] Feb, [facility] [address] [facility] [id number] [address] [place] [address] Jan, [facility] [address] [facility] [id number] [address] [place] [address] Jan, [facility] [address] [place] [id number] [address] [place] [address] Jan, [facility] [address] [id number] [address] [place] [address], [place] [address] Jan, [facility] [address] [id number] [address] [place] [address], [place] [address] Jan, [facility] [address] [id number] [address] [place] [address], [place] [address] Jan, [facility] [address] [id number] [address] [place] [address], [place] [address] Dec, [facility] [address] [id number] [address] [place] [address], [place] [address] Dec, [facility] [address] [id number] [address] [place] [address], [place] [address] Nov, [facility] [address] [id number] [address] [place] [address], [place] [address] Nov, [facility] [address] [id number] [address] [place] [address], [place] [address] Oct, [facility] [address] [id number] [address] [place] [address], [place] [address] Oct, [facility] [address] [id number] [address] [place] [address], [place] [address] Oct, [facility] [address] [id number] [address] [place] [address], [place] [address] Oct, [facility] [address] [id number] [address] [place] [address], [place] [address] Sep, [facility] [address] [id number] [address] [place] [address], [place] [address] Sep, [facility] [address] [id number] [address] [place] [address], [place] [address] Sep, [facility] [address] [id number] [address] [place] [address], [place] [address] Sep, [facility] [address] [id number] [address] [place] [address], [place] [address] Sep, [facility] [address] [id number] [address] [place] [address], [place] [address] Sep, [facility] [address] [id number] [address] [place] [address], [place] [address] Aug, [facility] [address] [id number] [address] [place] [address], [place] [address] Aug, [facility] [address] [id number] [address] [place] [address], [place] [address] Aug, [facility] [address] [id number] [address] [place] [address], [place] [address] Aug, [facility] [address] [id number] [address] [place] [address], [place] [address] Aug, [facility] [address] [id number] [address] [place] [address], [place] [address] Aug, [facility] [address] [id number] [address] [place] [address], [place] [address] Aug, [facility] [address] [id number] [address] [place] [address], [place] [address] Aug, [facility] [address] [id number] [address] [place] [address], [place] [address] Aug, [facility] [address] [id number] [address] [place] [address], [place] [address] Aug, [facility] [address] [id number] [address] [place] [address], [place] [address] Jul, [facility] [address] [id number] [address] [place] [address], [place] [address] Jul, [facility] [address] [id number] [address] [place] [address], [place] [address] May, [facility] [address] [id number] [address] [place] [address], [place] [address] May, [facility] [address] [id number] [facility] [address] May, [facility] [address] [id number] [address] [place] [address], [place] [address] May, [facility] [address] [id number] [address] [place] [address], [place] [address] May, [facility] [address] [id number] [address] [place] [address], [place] [address] May, [facility] [address] [id number] [address] [place] [address], [place] [address] Apr, [facility] [address] [id number] [address] [place] [address], [place] [address] Apr, [facility] [address] [id number] [address] [place] [address], [place] [address] Apr, [facility] [address] [id number] [address] [place] [address], [place] [address] Apr, [facility] [address] [id number] [address] [place] [address], [place] [address] March, [facility] [address] [id number] [address] [place] [address], [place] [address] March, [facility] [address] [id number] [address] [place] [address], [place] [address] Feb, [facility] [address] [id number] [address] [place] [address], [place] [address] Feb, [facility] [address] [id number] [address] [place] [address], [place] [address] Jan, [facility] [address] [id number] [address] [place] [address], [place] [address] Jan, [facility] [address] [id number] [address] [place] [address], [place] [address] Nov, [facility] [address] [id number] [address] [place] [address], [place] [address] Nov, [facility] [address] [id number] [address] [place] [address], [place] [address] Nov, [facility] [address] [id number] [address] [place] [address], [place] [address] Nov, [facility] [address] [id number] [address] [place] [address], [place] [address] Nov, [facility] [address] [id number] [address] [place] [address], [place] [address] Nov, [facility] [address] [id number] [address] [place] [address], [place] [address] Oct, [facility] [address] [id number] [address] [place] [address], [place] [address] Oct, [facility] [address] [id number] [address] [place] [address], [place] [address] Aug, [facility] [address] [id number] [address] [place] [address], [place] [address] Aug, [facility] [address] [id number] [address] [place] [address], [place] [address] Jul, [facility] [address] [id number] [address] [place] [address], [place] [address] Jun, [facility] [address] [id number] [address] [place] [address], [place] [address] Jun, [facility] [address] [id number] [address] [place] [address], [place] [address] Jun, [facility] [address] [id number] [address] [place] [address], [place] [address] Jun, [facility] [address] [id number] [address] [place] [address], [place] [address] Jun, [facility] [address] [id number] [address] [place] [address], [place] [address] Jun, [facility] [address] [facility] [id number] [address] [place] [address] May, [facility] [address] [facility] [id number] [address] [place] [address] March, [facility] [address] [facility] [id number] [address] [place] [address] March, [facility] [address] [facility] [id number] [address] [place] [address] Jan, IMMUNIZATIONS No Known Immunizations SOCIAL HISTORY Never Assessed REASON FOR VISIT [facility] Follow up-NATALIE Abdul, still feeling a little light headed when he stands up PLAN OF CARE Activity Details Follow Up 3 Months, prn Reason:CHM/DM VITAL SIGNS Height 66 in 2018-05-12 Weight 157.6 lbs 2018-05-12 Temperature 98.2 degrees Fahrenheit 2018-05-12 Heart Rate 72 bpm 2018-05-12 Respiratory Rate 20 2018-05-12 BMI 25.43 kg/m2 2018-05-12 Blood pressure systolic 122 mmHg 2018-05-12 Blood pressure diastolic 72 mmHg 2018-05-12 MEDICATIONS Medication Instructions Dosage Frequency Start Date End Date Duration S tatus Abilify 15 mg Orally Once a day 1 tablet 24h Aug, 30 day(s) Active ProAir HFA 108 (90 Base) MCG/ACT Inhalation every 4 hrs 2 puffs as needed 4h Jul, 7 days Active Carbidopa-Levodopa 10-100 MG Orally Three times a day 1 tablet 8h 30 days Active Lisinopril 20 mg Orally Once a day TAKE 1 TABLET BY MOUTH DAILY 24h 30 days Active Zocor 40 mg Orally Once a day 1 tablet in the evening Once a day O rally 30 24h 30 days Active Baclofen 10 mg Orally Three times a day 1 tablet with food or milk 8h May, Aug, 30 day(s) Active Trazodone HCl 100 mg Orally Once a day at hs 2 tablet 30 days Active Carvedilol 6.25 MG Orally 2 times a day TAKE 1 TABLET BY MOUTH TWIC E DAILY 12h 30 days Active Gabapentin 300 MG Orally 3 times a day TAKE 1 CAPSULE BY MOUTH 3 TI MES A DAY 8h 30 Active MetFORMIN HCl ER 500 mg Orally twice a day 1 tablet twice daily wit h food 12h 30 Aug, 2017 30 day(s) Active RESULTS No Results PROCEDURES Procedure Date Ordered Result Body Site LAB NOT BILLED BY [facility] May 12, 2018 GLYCATED HEMOGLOBIN TEST May 12, 2018 DRUG TEST [facility] DIR OPT OBS May 12, 2018 MICROALBUMIN, SEMIQUANT May 12, 2018 [facility] VISIT ESTABLISHED PATIENT May 12, 2018 No Charge May 12, 2018 INSTRUCTIONS MEDICATIONS ADMINISTERED No Known Medications [...] cyst Hospitalization History surgery Hospitalization History [facility]- Right Leg Pain 09/21/2017 Hospitalization History [facility]- Severe Dehydr ation with Acute Renal Failure 05/06/2018 Hospitalization History Back surgery to remove cyst/ infecti on
--- OUTSIDE RECORDS SUMMARY | 2020-03-23 01:02 | XMS REPORT ---
Author Author Zoran PAREKH Organization [facility] Address [address] 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 Active 619482373 Problem Cervical stenosis of spine M48.02 Act cynthia 61778747 Problem Other chronic pain G89.29 Active 8 1316591 Problem Type 2 diabetes mellitus with other specified complication E11.69 Active 8386301 Problem HTN (hypertension) I10 Active 3 1326511 Problem Cervicalgia M54.2 Active 07736883 7183119 Problem Cannabis abuse F12.10 Active 70431 009 Problem Recurrent major depressive disorder, in full remission F33.42 Active 337060276 Problem Hypercholesterolemia E78.0 Active 43580265 Problem Parkinsons disease G20 Active 4 9690096 Problem Lumbar spondylosis M47.816 Active 2 55733890 Problem 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 Active 049541021 ALLERGIES No Information ENCOUNTERS Encounter Location Date Diagnosis [facility] [address] [facility] [id number] [address] [place] [phone] May, [facility] [address] [facility] [id number] [address] [place] [phone] Apr, [facility] [address] [facility] [id number] [address] [place] [phone] Apr, Dehydration E86.0 ; Acute re nal failure, unspecified acute renal failure type N17.9 ; Cannabis abuse F12.10 ; Type 2 diabetes mellitus with other specified complication E11.69 ; HTN (hypertension) I10 ; Parkinsons disease G20 ; Hypercholesterolemia E78.0 ; 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 ; Cervicalgia M54.2 ; Need for hepatitis C screening test Z11.59 and Recurrent major depressive disorder, in full remission F33.42 [place] [address] [address] 18 Apr, 2018 [place] [address] [place] [id number] [place] [phone] 14 Apr, 2018 Dehydration E86.0 ; Hypotens ion, unspecified hypotension type I95.9 ; Fall, initial encounter W19.XXXA ; Acute head injury without loss of consciousness, initial encounter S09.90XA ; Type 2 diabetes mellitus with other specified complication E11.69 ; HTN (hypertension) I10 and Parkinsons disease G20 [place] [address] [id number] 14 Apr, 2018 [place] [address] [id number] 12 Apr, 2018 [place] [address] [address] Feb, Cervicalgia M54.2 [place] [address] [address] Feb, Cervical stenosis of spine M 48.02 [place] [address] [place] [id number] [place] [phone] Jan, Cervicalgia M54.2 [place] [address] [place] [id number] [address] [place] [phone] Jan, Acute right-sided low back p ain with right-sided sciatica M54.41 [place] [address] [place] [id number] [address] [place] [phone] Dec, Cervicalgia M54.2 [place] [address] [place] [id number] [address] [place] [phone] Dec, Controlled substance agreeme nt signed Z79.899 [place] [address] [address] Oct, Cervicalgia M54.2 [place] [address] [id number] [address] [place] [phone] Oct, Acute right-sided low back p ain with right-sided sciatica M54.41 [place] [address] [id number] [address] [place] [phone] Oct, [place] [address] [facility] [id number] [address] [place] [phone] Sep, Cervicalgia M54.2 [place] [address] [id number] [address] [place] [id number] 14 Sep, 2017 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 [place] [address] [facility] [id number] [address] [place] [phone] 13 Sep, 2017 Lumbar back pain with radicu lopathy affecting right lower extremity M54.17 [place] [address] [facility] [id number] [address] [place] [id number] 03 Sep, 2017 Acute right-sided low back p ain with right-sided sciatica M54.41 [place] [address] [facility] [id number] [address] [place] [phone] Aug, Type 2 diabetes mellitus wit h other specified complication E11.69 ; HTN (hypertension) I10 ; Cervicalgia M54.2 ; Cervical stenosis of spine M48.02 ; Acute right hip pain M25.551 ; 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 ; Hypercholesterolemia E78.0 ; Parkinsons disease G20 and Depression F32.9 [place] [address] [facility] [id number] [address] [place] [phone] Aug, Other chronic pain G89.29 [place] [address] [facility] [id number] [address] [place] [phone] Jul, Other chronic pain G89.29 [place] [address] [facility] [id number] [address] [place] [phone] Jul, [facility] [address] [id number] [address] [place] [phone] Jul, Cough R05 and Bronchitis J40 [facility] [address] [id number] [address] [place] [phone] Jun, Other chronic pain G89.29 [facility] [address] [id number] [address] [place] [phone] Jun, [facility] [address] [id number] [address] [place] [phone] Jun, 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 and Cervicalgia M54.2 [facility] [address] [id number] [address] [place] [phone] Jun, Cervicalgia M54.2 [facility] [address] [id number] [address] [place] [phone] May, Other chronic pain G89.29 [facility] [address] [id number] [address] [place] [phone] May, [facility] [address] [id number] [address] [place] [phone] May, [facility] [address] [id number] [address] [place] [phone] May, [facility] [address] [id number] [address] [place] [phone] May, [facility] [address] [id number] [address] [place] [phone] May, Type 2 diabetes mellitus wit h other specified complication E11.69 ; HTN (hypertension) I10 ; 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 ; Parkinsons disease G20 and Cervical stenosis of spine M48.02 [facility] [address] [id number] [address] [place] [phone] Apr, Cervicalgia M54.2 [facility] [address] [facility] [id number] [address] [place] [phone] Apr, Type 2 diabetes mellitus wit h other specified complication E11.69 ; HTN (hypertension) I10 ; Depression F32.9 ; 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 ; Coronary atherosclerosis due to lipid rich plaque I25.83 ; Cervicalgia M54.2 ; Parkinsons disease G20 ; Chronic diarrhea K52.9 and Pure hypercholesterolemia E78.00 [place] [address] [facility] [id number] [address] [place] [phone] March, Other chronic pain G89.29 [place] [address] [facility] [id number] [address] [place] [phone] March, Other chronic pain G89.29 [place] [address] [facility] [id number] [address] [place] [phone] Feb, Cervical stenosis of spine M 48.02 [place] [address] [facility] [id number] [address] [place] [phone] Feb, Other chronic pain G89.29 [place] [address] [facility] [id number] [address] [place] [phone] Jan, [place] [address] [place] [id number] [address] [place] [phone] Jan, Other chronic pain G89.29 [place] [address] [facility] [id number] [address] [place] [phone] Jan, Other chronic pain G89.29 [place] [address] [facility] [id number] [address] [place] [phone] Jan, Type 2 diabetes mellitus wit h other specified complication E11.69 ; 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 ; Anxiety F41.9 ; HTN (hypertension) I10 ; Depression F32.9 ; Coronary atherosclerosis due to lipid rich plaque I25.83 ; Cervicalgia M54.2 ; Other chronic pain G89.29 and Functional 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 [place] [address] [facility] [id number] [address] [place] [phone] Nov, HTN (hypertension) I10 [facility] [address] [place] [id number] [place] [phone] Nov, Type 2 diabetes mellitus wit h other specified complication E11.69 ; 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 ; Hypercholesterolemia E78.0 ; Anxiety F41.9 ; Depression F32.9 ; Cervicalgia M54.2 and Functional 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 [facility] [address] [place] [id number] [place] [phone] Oct, [facility] [address] [address] Oct, Neck pain M54.2 [facility] [address] [place] [id number] [place] [phone] Sep, [facility] [address] [phone] Aug, [facility] [address] [place] [id number] [place] [phone] Aug, [facility] [address] [place] [id number] [place] [phone] Jul, Visit for TB skin test Z11.1 and Screening for tuberculosis Z11.1 [facility] [address] [place] [id number] [address] [place] [phone] May, [facility] [address] [place] [id number] [place] [phone] May, Neck pain M54.2 [facility] [address] [place] [id number] [place] [phone] May, [facility] [address] [place] [id number] [place] [phone] Apr, Neck pain M54.2 [facility] [address] [place] [id number] [address] [place] [phone] Feb, Neck pain M54.2 [facility] [address] [phone] Feb, [facility] [address] [address] Jan, Neck pain M54.2 [facility] [address] [phone] Jan, [facility] [address] [address] Jan, Neck pain M54.2 [place] [address] [id number] Jan, Neck pain M54.2 ; Type 2 sarath betes mellitus with other specified complication E11.69 ; CAD (coronary artery disease) 414.00 ; Insomnia 780.52 ; Anxiety F41.9 ; Depression F32.9 ; Pre-ulcerative calluses L84 and Hypercholesterolemia E78.0 [place] [address] [phone] Nov, [place] [address] [address] Nov, Type 2 diabetes mellitus wit h other specified complication E11.69 ; Pre-ulcerative calluses L84 ; HTN (hypertension) I10 ; Hypercholesterolemia E78.0 ; Anxiety F41.9 ; Depression F32.9 ; Environmental allergies Z91.09 and Osteoarthritis M19.90 [place] [address] [address] Sep, [place] [address] [address] Aug, Allergic rhinitis, seasonal J30.2 [place] [address] [address] Jul, [place] [address] [address] Jul, Other specified cardiac dysr hythmias 427.89 ; Essential hypertension, benign 401.1 ; Nondependent tobacco use disorder 305.1 ; Unspecified hereditary and idiopathic peripheral neuropathy 356.9 ; Diabetes mellitus without mention of complication, type II or unspecified type, not stated as uncontrolled 250.00 ; CAD (coronary artery disease) 414.00 ; Insomnia 780.52 and Depression 311 [facility] [address] [id number] [address] [place] [phone] 14 Jul, 2015 [facility] [address] [id number] [address] [place] [phone] Jul, [facility] [address] [id number] [address] [place] [phone] May, [facility] [address] [facility] [id number] [address] [place] [phone] May, [facility] [address] [facility] [id number] [address] [place] [phone] May, [facility] [address] [id number] [address] [place] [phone] Apr, [facility] [address] [facility] [id number] [address] [place] [phone] Apr, Skin lesion of face 709.9 an d Anxiety 300.00 [facility] [address] [facility] [id number] [address] [place] [phone] March, [facility] [address] [id number] [address] [place] [phone] Feb, [facility] [address] [id number] [address] [place] [phone] Feb, [facility] [address] [facility] [id number] [address] [place] [phone] Jan, [facility] [address] [id number] [address] [place] [phone] Jan, [facility] [address] [place] [id number] [address] [place] [phone] Jan, [facility] [address] [id number] [address] [place] [address], [place] [address] Jan, [facility] [address] [id number] [address] [place] [address], [place] [phone] Jan, [facility] [address] [id number] [address] [place] [address], [place] [address] Jan, [facility] [address] [id number] [address] [place] [address], [place] [address] Dec, [facility] [address] [id number] [address] [place] [address], [place] [address] Dec, [facility] [address] [id number] [address] [place] [address], [place] [address] Nov, [facility] [address] [id number] [address] [place] [address], [place] [address] Nov, [facility] [address] [id number] [address] [place] [address], [place] [phone] Oct, [facility] [address] [id number] [address] [place] [address], [place] [address] Oct, [facility] [address] [id number] [address] [place] [address], [place] [address] Oct, [facility] [address] [id number] [address] [place] [address], [place] [address] Oct, [facility] [address] [id number] [address] [place] [address], [place] [address] Sep, [facility] [address] [id number] [address] [place] [address], [place] [address] Sep, [facility] [address] [id number] [address] [place] [address], [place] [address] Sep, [facility] [address] [id number] [address] [place] [address], [place] [address] Sep, [facility] [address] [id number] [address] [place] [address], [place] [id number] Sep, [facility] [address] [id number] [address] [place] [address], [place] [address] Sep, [facility] [address] [id number] [address] [place] [address], [place] [address] Aug, [facility] [address] [id number] [address] [place] [address], [place] [address] Aug, [facility] [address] [id number] [address] [place] [address], [place] [address] Aug, [facility] [address] [id number] [address] [place] [address], [place] [address] Aug, [facility] [address] [id number] [address] [place] [address], [place] [address] Aug, [facility] [address] [id number] [address] [place] [address], [place] [id number] Aug, [facility] [address] [id number] [address] [place] [address], [place] [address] Aug, [facility] [address] [id number] [address] [place] [address], [place] [address] Aug, [facility] [address] [id number] [address] [place] [address], [place] [address] Aug, [facility] [address] [id number] [address] [place] [address], [place] [address] Aug, [facility] [address] [id number] [address] [place] [address], [place] [address] Jul, [facility] [address] [id number] [address] [place] [address], [place] [address] Jul, [facility] [address] [id number] [address] [place] [address], [place] [address] May, [facility] [address] [id number] [address] [place] [address], [place] [id number] May, [facility] [address] [id number] [address] [place] [address], [place] [address] May, [facility] [address] [id number] [address] [place] [address], [place] [address] May, [facility] [address] [id number] [address] [place] [address], [place] [address] May, [facility] [address] [id number] [address] [place] [address], [place] [address] May, [facility] [address] [id number] [address] [place] [address], [place] [address] Apr, [facility] [address] [id number] [address] [place] [address], [place] [address] Apr, [facility] [address] [id number] [address] [place] [address], [place] [address] Apr, [facility] [address] [id number] [address] [place] [address], [place] [address] Apr, [facility] [address] [id number] [address] [place] [address], [place] [address] March, [facility] [address] [id number] [address] [place] [address], [place] [id number] March, [facility] [address] [id number] [address] [place] [address], [place] [address] Feb, [facility] [address] [id number] [address] [place] [address], [place] [address] Feb, [facility] [address] [id number] [address] [place] [address], [place] [address] Jan, [facility] [address] [id number] [address] [place] [address], [place] [address] Jan, [facility] [address] [id number] [address] [place] [address], [place] [address] Nov, [facility] [address] [id number] [address] [place] [address], [place] [address] Nov, [facility] [address] [id number] [address] [place] [address], [place] [address] Nov, [facility] [address] [id number] [address] [place] [address], [place] [address] Nov, [facility] [address] [id number] [address] [place] [address], [place] [address] Nov, [facility] [address] [id number] [address] [place] [address], [place] [address] Nov, [facility] [address] [id number] [address] [place] [address], [place] [address] Oct, [facility] [address] [id number] [address] [place] [address], [place] [address] Oct, [facility] [address] [id number] [address] [place] [address], [place] [address] Aug, [facility] [address] [id number] [address] [place] [address], [place] [address] Aug, [facility] [address] [id number] [address] [place] [address], [place] [address] Jul, [facility] [address] [id number] [address] [place] [address], [place] [address] Jun, [facility] [address] [id number] [address] [place] [address], [place] [id number] Jun, [facility] [address] [id number] [address] [place] [address], [place] [address] Jun, [facility] [address] [id number] [address] [place] [address], [place] [id number] Jun, [facility] [address] [id number] [address] [place] [address], [place] [id number] Jun, [facility] [address] [id number] [address] [place] [address], [place] [id number] Jun, [facility] [address] [id number] [address] [place] [phone] May, [facility] [address] [facility] [id number] [address] [place] [phone] March, [facility] [address] [facility] [id number] [address] [place] [phone] March, [facility] [address] [facility] [id number] [address] [place] [phone] Jan, IMMUNIZATIONS No Known Immunizations SOCIAL HISTORY Never Assessed REASON FOR VISIT PT follow-up PLAN OF CARE Activity Details Follow Up prn Reason: VITAL SIGNS MEDICATIONS Unknown Medications RESULTS [...] cyst Hospitalization History surgery Hospitalization History [facility]- Right Leg Pain 09/21/2017 Hospitalization History [facility]- Severe Dehydr ation with Acute Renal Failure 05/06/2018 Hospitalization History Back surgery to remove cyst/ infecti on
--- OUTSIDE RECORDS SUMMARY | 2020-03-23 01:02 | XMS REPORT ---
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 Active 114769223 Problem Acute right-sided low back pain with right-sided sciatica M54.41 Active 019998018 Problem Lumbar spondylosis M47.816 Active 2 72635083 Problem Parkinsons disease G20 Active 4 3543028 Problem Cervical stenosis of spine M48.02 Act cynthia 26335207 Problem 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 Active 042534067 Problem Hypercholesterolemia E78.0 Active 31194452 Problem Pure hypercholesterolemia E78.00 Acti ve 822132348 Problem Depression F32.9 Active 54229728 Problem Pre-ulcerative calluses L84 Active 62893168 Problem Type 2 diabetes mellitus with other specified complication E11.69 Active 7282355 Problem Anxiety F41.9 Active 43629059 Problem HTN (hypertension) I10 Active 3 9741919 Problem Cervicalgia M54.2 Active 18676311 [id number] ALLERGIES No Information ENCOUNTERS Encounter Location Date Diagnosis [facility] [address] [facility] [id number] [address] [place] [address] March, [facility] [address] [facility] [id number] [address] [place] [address] Feb, Cervicalgia M54.2 [facility] [address] [facility] [id number] [address] [place] [address] Feb, Cervical stenosis of spine M 48.02 [facility] [address] [id number] [address] [place] [address] Jan, Cervicalgia M54.2 [facility] [address] [facility] [id number] [address] [place] [phone] Jan, [facility] [address] [facility] [id number] [address] [place] [phone] Dec, Cervicalgia M54.2 [facility] [address] [facility] [id number] [address] [place] [address] Dec, Controlled substance agreeme nt signed Z79.899 [facility] [address] [facility] [id number] [address] [place] [address] Oct, Cervicalgia M54.2 [facility] [address] [facility] [id number] [address] [place] [phone] Oct, Acute right-sided low back p ain with right-sided sciatica M54.41 [facility] [address] [facility] [id number] [address] [place] [address] Oct, [facility] [address] [facility] [id number] [address] [place] [address] Sep, Cervicalgia M54.2 [facility] [address] [facility] [id number] [address] [place] [phone] 14 Sep, 2017 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 [facility] [address] [facility] [id number] [address] [place] [address] 13 Sep, 2017 Lumbar back pain with radicu lopathy affecting right lower extremity M54.17 [facility] [address] [facility] [id number] [address] [place] [phone] 03 Sep, 2017 Acute right-sided low back p ain with right-sided sciatica M54.41 [facility] [address] [facility] [id number] [address] [place] [address] 30 Aug, 2017 Type 2 diabetes mellitus wit h other specified complication E11.69 ; HTN (hypertension) I10 ; Cervicalgia M54.2 ; Cervical stenosis of spine M48.02 ; Acute right hip pain M25.551 ; 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 ; Hypercholesterolemia E78.0 ; Parkinsons disease G20 and Depression F32.9 [facility] [address] [id number] [address] [place] [address] Aug, Other chronic pain G89.29 [facility] [address] [id number] [address] [place] [address] Jul, Other chronic pain G89.29 [facility] [address] [id number] [address] [place] [address] Jul, [facility] [address] [id number] [address] [place] [address] Jul, Cough R05 and Bronchitis J40 [facility] [address] [id number] [address] [place] [address] Jun, Other chronic pain G89.29 [facility] [address] [id number] [address] [place] [phone] Jun, [facility] [address] [facility] [id number] [address] [place] [address] Jun, 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 and Cervicalgia M54.2 [facility] [address] [id number] [address] [place] [address] Jun, Cervicalgia M54.2 [facility] [address] [facility] [id number] [address] [place] [address] May, Other chronic pain G89.29 [facility] [address] [id number] [address] [place] [address] May, [facility] [address] [facility] [id number] [address] [place] [address] May, [facility] [address] [facility] [id number] [address] [place] [address] May, [facility] [address] [facility] [id number] [address] [place] [address] May, [place] [address] [facility] [id number] [address] [place] [address] May, Type 2 diabetes mellitus wit h other specified complication E11.69 ; HTN (hypertension) I10 ; 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 ; Parkinsons disease G20 and Cervical stenosis of spine M48.02 [facility] [address] [facility] [id number] [address] [place] [address] Apr, Cervicalgia M54.2 [place] [address] [facility] [id number] [address] [place] [address] Apr, Type 2 diabetes mellitus wit h other specified complication E11.69 ; HTN (hypertension) I10 ; Depression F32.9 ; 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 ; Coronary atherosclerosis due to lipid rich plaque I25.83 ; Cervicalgia M54.2 ; Parkinsons disease G20 ; Chronic diarrhea K52.9 and Pure hypercholesterolemia E78.00 [place] [address] [facility] [id number] [address] [place] [address] March, Other chronic pain G89.29 [place] [address] [facility] [id number] [address] [place] [address] March, Other chronic pain G89.29 [place] [address] [facility] [id number] [address] [place] [address] Feb, Cervical stenosis of spine M 48.02 [facility] [address] [facility] [id number] [address] [place] [address] Feb, Other chronic pain G89.29 [facility] [address] [facility] [id number] [address] [place] [address] Jan, [place] [address] [facility] [id number] [address] [place] [address] Jan, Other chronic pain G89.29 [facility] [address] [facility] [id number] [address] [place] [address] Jan, Other chronic pain G89.29 [facility] [address] [facility] [id number] [address] [place] [address] Jan, Type 2 diabetes mellitus wit h other specified complication E11.69 ; 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 ; Anxiety F41.9 ; HTN (hypertension) I10 ; Depression F32.9 ; Coronary atherosclerosis due to lipid rich plaque I25.83 ; Cervicalgia M54.2 ; Other chronic pain G89.29 and Functional 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 [facility] [address] [facility] [id number] [address] [place] [address] Nov, HTN (hypertension) I10 [place] [address] [place] [id number] [place] [address] Nov, Type 2 diabetes mellitus wit h other specified complication E11.69 ; 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 ; Hypercholesterolemia E78.0 ; Anxiety F41.9 ; Depression F32.9 ; Cervicalgia M54.2 and Functional 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 [facility] [address] [place] [id number] [address] [place] [address] Oct, [facility] [address] [place] [id number] [address] [place] [address] Oct, Neck pain M54.2 [facility] [address] [place] [id number] [address] [place] [address] Sep, [facility] [address] [facility] [id number] [address] [place] [phone] Aug, [place] [address] [place] [id number] [address] [place] [phone] Aug, [facility] [address] [facility] [id number] [address] [place] [address] Jul, Visit for TB skin test Z11.1 and Screening for tuberculosis Z11.1 [facility] [address] [facility] [id number] [address] [place] [address] May, [facility] [address] [facility] [id number] [address] [place] [address] May, Neck pain M54.2 [facility] [address] [facility] [id number] [address] [place] [address] May, [facility] [address] [facility] [id number] [address] [place] [address] Apr, Neck pain M54.2 [facility] [address] [facility] [id number] [address] [place] [address] Feb, Neck pain M54.2 [facility] [address] [facility] [id number] [address] [place] [phone] Feb, [facility] [address] [facility] [id number] [address] [place] [address] Jan, Neck pain M54.2 [facility] [address] [facility] [id number] [address] [place] [phone] Jan, [facility] [address] [facility] [id number] [address] [place] [address] Jan, Neck pain M54.2 [facility] [address] [facility] [id number] [address] [place] [address] Jan, Neck pain M54.2 ; Type 2 sarath betes mellitus with other specified complication E11.69 ; CAD (coronary artery disease) 414.00 ; Insomnia 780.52 ; Anxiety F41.9 ; Depression F32.9 ; Pre-ulcerative calluses L84 and Hypercholesterolemia E78.0 [facility] [address] [facility] [id number] [address] [place] [phone] Nov, [facility] [address] [facility] [id number] [address] [place] [address] Nov, Type 2 diabetes mellitus wit h other specified complication E11.69 ; Pre-ulcerative calluses L84 ; HTN (hypertension) I10 ; Hypercholesterolemia E78.0 ; Anxiety F41.9 ; Depression F32.9 ; Environmental allergies Z91.09 and Osteoarthritis M19.90 [facility] [address] [address] Sep, [facility] [address] [address] Aug, Allergic rhinitis, seasonal J30.2 [facility] [address] [address] Jul, [facility] [address] [address] Jul, Other specified cardiac dysr hythmias 427.89 ; Essential hypertension, benign 401.1 ; Nondependent tobacco use disorder 305.1 ; Unspecified hereditary and idiopathic peripheral neuropathy 356.9 ; Diabetes mellitus without mention of complication, type II or unspecified type, not stated as uncontrolled 250.00 ; CAD (coronary artery disease) 414.00 ; Insomnia 780.52 and Depression 311 [facility] [address] [address] Jul, [place] [address] [address] Jul, [place] [address] [address] May, [facility] [address] [address] May, [facility] [address] [address] May, [facility] [address] [address] Apr, [facility] [address] [address] Apr, Skin lesion of face 709.9 an d Anxiety 300.00 [facility] [address] [id number] [address] [place] [address], [place] [address] March, [facility] [address] [id number] [address] [place] [address], [place] [address] Feb, [facility] [address] [id number] [address] [place] [address], [place] [address] Feb, [facility] [address] [id number] [address] [place] [address], [place] [address] Jan, [facility] [address] [id number] [address] [place] [address], [place] [address] Jan, [facility] [address] [id number] [address] [place] [address], [place] [address] Jan, [facility] [address] [id number] [address] [place] [address], [place] [address] Jan, [facility] [address] [id number] [address] [place] [address], [place] [address] Jan, [facility] [address] [id number] [address] [place] [address], [place] [address] Jan, [facility] [address] [id number] [address] [place] [address], [place] [address] Dec, [facility] [address] [id number] [address] [place] [address], [place] [address] Dec, [facility] [address] [id number] [address] [place] [address], [place] [address] Nov, [facility] [address] [id number] [address] [place] [address], [place] [address] Nov, [facility] [address] [id number] [address] [place] [address], [place] [address] Oct, [facility] [address] [id number] [address] [place] [address], [place] [address] Oct, [facility] [address] [id number] [address] [place] [address], [place] [address] Oct, [facility] [address] [id number] [address] [place] [address], [place] [address] Oct, [facility] [address] [id number] [address] [place] [address], [place] [address] Sep, [facility] [address] [id number] [address] [place] [address], [place] [address] Sep, [facility] [address] [id number] [address] [place] [address], [place] [address] Sep, [facility] [address] [id number] [address] [place] [address], [place] [address] Sep, [facility] [address] [id number] [address] [place] [address], [place] [address] Sep, [facility] [address] [id number] [address] [place] [address], [place] [address] Sep, [facility] [address] [id number] [address] [place] [address], [place] [address] Aug, [facility] [address] [id number] [address] [place] [address], [place] [address] Aug, [facility] [address] [id number] [address] [place] [address], [place] [address] Aug, [facility] [address] [id number] [address] [place] [address], [place] [address] Aug, [facility] [address] [id number] [address] [place] [address] Aug, [facility] [address] [id number] [address] [place] [address], [place] [address] Aug, [facility] [address] [id number] [address] [place] [address], [place] [address] Aug, [facility] [address] [id number] [address] [place] [address], [place] [address] Aug, [facility] [address] [id number] [address] [place] [address], [place] [address] Aug, [facility] [address] [id number] [address] [place] [address], [place] [address] Aug, [facility] [address] [id number] [address] [place] [address], [place] [address] Jul, [facility] [address] [id number] [address] [place] [address], [place] [address] Jul, [facility] [address] [id number] [address] [place] [address], [place] [address] May, [facility] [address] [id number] [address] [place] [address], [place] [address] May, [facility] [address] [id number] [address] [place] [address], [place] [address] May, [facility] [address] [id number] [address] [place] [address], [place] [address] May, [facility] [address] [id number] [address] [place] [address], [place] [address] May, [facility] [address] [id number] [address] [place] [address], [place] [address] May, [facility] [address] [id number] [address] [place] [address], [place] [address] Apr, [facility] [address] [id number] [address] [place] [address], [place] [address] Apr, [facility] [address] [id number] [address] [place] [address], [place] [address] Apr, [facility] [address] [id number] [address] [place] [address], [place] [address] Apr, [facility] [address] [id number] [address] [place] [address], [place] [address] March, [facility] [address] [id number] [address] [place] [address], [place] [address] March, [facility] [address] [id number] [address] [place] [address], [place] [address] Feb, [facility] [address] [id number] [address] [place] [address], [place] [address] Feb, [facility] [address] [id number] [address] [place] [address], [place] [address] Jan, [facility] [address] [id number] [address] [place] [address], [place] [address] Jan, [facility] [address] [id number] [address] [place] [address], [place] [address] Nov, [facility] [address] [id number] [address] [place] [address], [place] [address] Nov, [facility] [address] [id number] [address] [place] [address], [place] [address] Nov, [facility] [address] [id number] [address] [place] [address], [place] [address] Nov, [facility] [address] [id number] [address] [place] [address], [place] [address] Nov, [facility] [address] [id number] [address] [place] [address], [place] [address] Nov, [facility] [address] [id number] [address] [place] [address], [place] [address] Oct, [facility] [address] [id number] [address] [place] [address], [place] [address] Oct, [facility] [address] [id number] [address] [place] [address], [place] [address] Aug, [facility] [address] [id number] [address] [place] [address], [place] [address] Aug, [facility] [address] [id number] [address] [place] [address], [place] [address] Jul, [facility] [address] [id number] [address] [address] Jun, [facility] [address] [id number] [address] [place] [id number] Jun, [facility] [address] [id number] [address] [place] [phone] Jun, [facility] [address] [id number] [address] [place] [id number] Jun, [facility] [address] [id number] [address] [place] [id number] Jun, [facility] [address] [id number] [address] [place] [id number] Jun, [facility] [address] [id number] [address] [place] [phone] May, [facility] [address] [id number] [address] [place] [id number] March, [facility] [address] [id number] [address] [place] [id number] March, [facility] [address] [id number] [address] [place] [id number] Jan, IMMUNIZATIONS No Known Immunizations SOCIAL HISTORY Never Assessed REASON FOR VISIT Ultram- 09/15 PLAN OF CARE VITAL SIGNS MEDICATIONS Medication Instructions Dosage Frequency Start Date End Date Duration S tatus Ultram 50 mg Orally 3 times a day 1 tablet as needed 28 Active RESULTS No Results PROCEDURES No [...]
--- OUTSIDE RECORDS SUMMARY | 2020-03-23 01:02 | XMS REPORT ---
Author Author Zoran PAREKH Organization [facility] Address [address] [place] [address] Care Team Providers Care Land Law Examiner Name Role Phone ROSA M PAREKH Unavailable PROBLEMS Type Condition ICD9-CM Code [id number] Code Onset Dates Condition S tatus SNOMED Code Problem Atherosclerotic heart diseas e of [place] coronary artery without angina pectoris I25.10 Active 935828238 Problem Cervical stenosis of spine M48.02 Act cynthia 73235674 Problem Other chronic pain G89.29 Active 8 0492008 Problem Type 2 diabetes mellitus with other specified complication E11.69 Active 6884624 Problem HTN (hypertension) I10 Active 3 7059675 Problem Cervicalgia M54.2 Active 62581965 2146565 Problem Cannabis abuse F12.10 Active 73576 009 Problem Recurrent major depressive disorder, in full remission F33.42 Active 744202957 Problem Hypercholesterolemia E78.0 Active 51316747 Problem Parkinsons disease G20 Active 4 2596688 Problem Lumbar spondylosis M47.816 Active 2 27101737 Problem 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 Active 624339152 ALLERGIES No Information ENCOUNTERS Encounter Location Date Diagnosis [facility] [address] [facility] [id number] [address] [place] [address] Jun, [facility] [address] [facility] [id number] [address] [place] [address] Apr, [facility] [address] [facility] [id number] [address] [place] [address] Apr, Dehydration E86.0 ; Acute re nal failure, unspecified acute renal failure type N17.9 ; Cannabis abuse F12.10 ; Type 2 diabetes mellitus with other specified complication E11.69 ; HTN (hypertension) I10 ; Parkinsons disease G20 ; Hypercholesterolemia E78.0 ; Atherosclerotic heart disease of [place] coronary artery without angina pectoris I25.10 ; Cervicalgia M54.2 ; Need for hepatitis C screening test Z11.59 and Recurrent major depressive disorder, in full remission F33.42 [place] [address] [address] 18 Apr, 2018 [place] [address] [place] [id number] [place] [address] 14 Apr, 2018 Dehydration E86.0 ; Hypotens ion, unspecified hypotension type I95.9 ; Fall, initial encounter W19.XXXA ; Acute head injury without loss of consciousness, initial encounter S09.90XA ; Type 2 diabetes mellitus with other specified complication E11.69 ; HTN (hypertension) I10 and Parkinsons disease G20 [place] [address] [address] 14 Apr, 2018 [place] [address] [address] 12 Apr, 2018 [place] [address] [address] Feb, Cervicalgia M54.2 [place] [address] [address] Feb, Cervical stenosis of spine M 48.02 [place] [address] [place] [id number] [place] [address] Jan, Cervicalgia M54.2 [place] [address] [place] [id number] [address] [place] [address] Jan, Acute right-sided low back p ain with right-sided sciatica M54.41 [place] [address] [place] [id number] [address] [place] [address] Dec, Cervicalgia M54.2 [place] [address] [place] [id number] [address] [place] [address] Dec, Controlled substance agreeme nt signed Z79.899 [place] [address] [address] Oct, Cervicalgia M54.2 [place] [address] [id number] [address] [place] [address] Oct, Acute right-sided low back p ain with right-sided sciatica M54.41 [place] [address] [id number] [address] [place] [address] Oct, [place] [address] [facility] [id number] [address] [place] [address] Sep, Cervicalgia M54.2 [place] [address] [id number] [address] [place] [address] 14 Sep, 2017 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 [place] [address] [facility] [id number] [address] [place] [address] 13 Sep, 2017 Lumbar back pain with radicu lopathy affecting right lower extremity M54.17 [place] [address] [facility] [id number] [address] [place] [address] 03 Sep, 2017 Acute right-sided low back p ain with right-sided sciatica M54.41 [place] [address] [facility] [id number] [address] [place] [address] Aug, Type 2 diabetes mellitus wit h other specified complication E11.69 ; HTN (hypertension) I10 ; Cervicalgia M54.2 ; Cervical stenosis of spine M48.02 ; Acute right hip pain M25.551 ; Atherosclerotic heart disease of [place] coronary artery without angina pectoris I25.10 ; Hypercholesterolemia E78.0 ; Parkinsons disease G20 and Depression F32.9 [place] [address] [facility] [id number] [address] [place] [address] Aug, Other chronic pain G89.29 [place] [address] [facility] [id number] [address] [place] [address] Jul, Other chronic pain G89.29 [place] [address] [facility] [id number] [address] [place] [address] Jul, [facility] [address] [id number] [address] [place] [address] Jul, Cough R05 and Bronchitis J40 [facility] [address] [id number] [address] [place] [address] Jun, Other chronic pain G89.29 [facility] [address] [id number] [address] [place] [address] Jun, [facility] [address] [id number] [address] [place] [address] Jun, Atherosclerotic heart diseas e of [place] coronary artery without angina pectoris I25.10 and Cervicalgia M54.2 [facility] [address] [id number] [address] [place] [address] Jun, Cervicalgia M54.2 [facility] [address] [id number] [address] [place] [address] May, Other chronic pain G89.29 [facility] [address] [id number] [address] [place] [address] May, [facility] [address] [id number] [address] [place] [address] May, [facility] [address] [id number] [address] [place] [address] May, [facility] [address] [id number] [address] [place] [address] May, [facility] [address] [id number] [address] [place] [address] May, Type 2 diabetes mellitus wit h other specified complication E11.69 ; HTN (hypertension) I10 ; Atherosclerotic heart disease of [place] coronary artery without angina pectoris I25.10 ; Parkinsons disease G20 and Cervical stenosis of spine M48.02 [facility] [address] [id number] [address] [place] [address] Apr, Cervicalgia M54.2 [facility] [address] [facility] [id number] [address] [place] [address] Apr, Type 2 diabetes mellitus wit h other specified complication E11.69 ; HTN (hypertension) I10 ; Depression F32.9 ; Atherosclerotic heart disease of [place] coronary artery without angina pectoris I25.10 ; Coronary atherosclerosis due to lipid rich plaque I25.83 ; Cervicalgia M54.2 ; Parkinsons disease G20 ; Chronic diarrhea K52.9 and Pure hypercholesterolemia E78.00 [place] [address] [facility] [id number] [address] [place] [address] March, Other chronic pain G89.29 [place] [address] [facility] [id number] [address] [place] [address] March, Other chronic pain G89.29 [place] [address] [facility] [id number] [address] [place] [address] Feb, Cervical stenosis of spine M 48.02 [place] [address] [facility] [id number] [address] [place] [address] Feb, Other chronic pain G89.29 [place] [address] [facility] [id number] [address] [place] [address] Jan, [place] [address] [place] [id number] [address] [place] [address] Jan, Other chronic pain G89.29 [place] [address] [facility] [id number] [address] [place] [address] Jan, Other chronic pain G89.29 [place] [address] [facility] [id number] [address] [place] [address] Jan, Type 2 diabetes mellitus wit h other specified complication E11.69 ; Atherosclerotic heart disease of [place] coronary artery without angina pectoris I25.10 ; Anxiety F41.9 ; HTN (hypertension) I10 ; Depression F32.9 ; Coronary atherosclerosis due to lipid rich plaque I25.83 ; Cervicalgia M54.2 ; Other chronic pain G89.29 and Functional 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 [place] [address] [facility] [id number] [address] [place] [address] Nov, HTN (hypertension) I10 [facility] [address] [place] [id number] [place] [address] Nov, Type 2 diabetes mellitus wit h other specified complication E11.69 ; Atherosclerotic heart disease of [place] coronary artery without angina pectoris I25.10 ; Hypercholesterolemia E78.0 ; Anxiety F41.9 ; Depression F32.9 ; Cervicalgia M54.2 and Functional 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 [facility] [address] [place] [id number] [place] [address] Oct, [facility] [address] [address] Oct, Neck pain M54.2 [facility] [address] [place] [id number] [place] [address] Sep, [facility] [address] [address] Aug, [facility] [address] [place] [id number] [place] [address] Aug, [facility] [address] [place] [id number] [place] [address] Jul, Visit for TB skin test Z11.1 and Screening for tuberculosis Z11.1 [facility] [address] [place] [id number] [address] [place] [address] May, [facility] [address] [place] [id number] [place] [address] May, Neck pain M54.2 [facility] [address] [place] [id number] [place] [address] May, [facility] [address] [place] [id number] [place] [address] Apr, Neck pain M54.2 [facility] [address] [place] [id number] [address] [place] [address] Feb, Neck pain M54.2 [facility] [address] [address] Feb, [facility] [address] [address] Jan, Neck pain M54.2 [facility] [address] [address] Jan, [facility] [address] [address] Jan, Neck pain M54.2 [place] [address] [address] Jan, Neck pain M54.2 ; Type 2 sarath betes mellitus with other specified complication E11.69 ; CAD (coronary artery disease) 414.00 ; Insomnia 780.52 ; Anxiety F41.9 ; Depression F32.9 ; Pre-ulcerative calluses L84 and Hypercholesterolemia E78.0 [place] [address] [address] Nov, [place] [address] [address] Nov, Type 2 diabetes mellitus wit h other specified complication E11.69 ; Pre-ulcerative calluses L84 ; HTN (hypertension) I10 ; Hypercholesterolemia E78.0 ; Anxiety F41.9 ; Depression F32.9 ; Environmental allergies Z91.09 and Osteoarthritis M19.90 [place] [address] [address] Sep, [place] [address] [address] Aug, Allergic rhinitis, seasonal J30.2 [place] [address] [address] Jul, [place] [address] [address] Jul, Other specified cardiac dysr hythmias 427.89 ; Essential hypertension, benign 401.1 ; Nondependent tobacco use disorder 305.1 ; Unspecified hereditary and idiopathic peripheral neuropathy 356.9 ; Diabetes mellitus without mention of complication, type II or unspecified type, not stated as uncontrolled 250.00 ; CAD (coronary artery disease) 414.00 ; Insomnia 780.52 and Depression 311 [facility] [address] [id number] [address] [place] [address] 14 Jul, 2015 [facility] [address] [id number] [address] [place] [address] Jul, [facility] [address] [id number] [address] [place] [address] May, [facility] [address] [facility] [id number] [address] [place] [address] May, [facility] [address] [facility] [id number] [address] [place] [address] May, [facility] [address] [id number] [address] [place] [address] Apr, [facility] [address] [facility] [id number] [address] [place] [address] Apr, Skin lesion of face 709.9 an d Anxiety 300.00 [facility] [address] [facility] [id number] [address] [place] [address] March, [facility] [address] [id number] [address] [place] [address] Feb, [facility] [address] [id number] [address] [place] [address] Feb, [facility] [address] [facility] [id number] [address] [place] [address] Jan, [facility] [address] [id number] [address] [place] [address] Jan, [facility] [address] [place] [id number] [place] [address] Jan, [facility] [address] [id number] [address] [place] [address], [place] [address] Jan, [facility] [address] [id number] [address] [place] [address], [place] [address] Jan, [facility] [address] [id number] [address] [place] [address], [place] [address] Jan, [facility] [address] [id number] [address] [place] [address], [place] [address] Dec, [facility] [address] [id number] [address] [place] [address], [place] [address] Dec, [facility] [address] [id number] [address] [place] [address], [place] [address] Nov, [facility] [address] [id number] [address] [place] [address], [place] [address] Nov, [facility] [address] [id number] [address] [place] [address], [place] [address] Oct, [facility] [address] [id number] [address] [place] [address], [place] [address] Oct, [facility] [address] [id number] [address] [place] [address], [place] [address] Oct, [facility] [address] [id number] [address] [place] [address], [place] [address] Oct, [facility] [address] [id number] [address] [place] [address], [place] [address] Sep, [facility] [address] [id number] [address] [place] [address], [place] [address] Sep, [facility] [address] [id number] [address] [place] [address], [place] [address] Sep, [facility] [address] [id number] [address] [place] [address], [place] [address] Sep, [facility] [address] [id number] [address] [place] [address], [place] [address] Sep, [facility] [address] [id number] [address] [place] [address], [place] [address] Sep, [facility] [address] [id number] [address] [place] [address], [place] [address] Aug, [facility] [address] [id number] [address] [place] [address], [place] [address] Aug, [facility] [address] [id number] [address] [place] [address], [place] [address] Aug, [facility] [address] [id number] [address] [place] [address], [place] [address] Aug, [facility] [address] [id number] [address] [place] [address], [place] [address] Aug, [facility] [address] [id number] [address] [place] [address], [place] [address] Aug, [facility] [address] [id number] [address] [place] [address], [place] [address] Aug, [facility] [address] [id number] [address] [place] [address], [place] [address] Aug, [facility] [address] [id number] [address] [place] [address], [place] [address] Aug, [facility] [address] [id number] [address] [place] [address], [place] [address] Aug, [facility] [address] [id number] [address] [place] [address], [place] [address] Jul, [facility] [address] [id number] [address] [place] [address], [place] [address] Jul, [facility] [address] [id number] [address] [place] [address], [place] [address] May, [facility] [address] [id number] [address] [place] [address], [place] [address] May, [facility] [address] [id number] [address] [place] [address], [place] [address] May, [facility] [address] [id number] [address] [place] [address], [place] [address] May, [facility] [address] [id number] [address] [place] [address], [place] [address] May, [facility] [address] [id number] [address] [place] [address], [place] [address] May, [facility] [address] [id number] [address] [place] [address], [place] [address] Apr, [facility] [address] [id number] [address] [place] [address], [place] [address] Apr, [facility] [address] [id number] [address] [place] [address], [place] [address] Apr, [facility] [address] [id number] [address] [place] [address], [place] [address] Apr, [facility] [address] [id number] [address] [place] [address], [place] [address] March, [facility] [address] [id number] [address] [place] [address], [place] [address] March, [facility] [address] [id number] [address] [place] [address], [place] [address] Feb, [facility] [address] [id number] [address] [place] [address], [place] [address] Feb, [facility] [address] [id number] [address] [place] [address], [place] [address] Jan, [facility] [address] [id number] [address] [place] [address], [place] [address] Jan, [facility] [address] [id number] [address] [place] [address], [place] [address] Nov, [facility] [address] [id number] [address] [place] [address], [place] [address] Nov, [facility] [address] [id number] [address] [place] [address], [place] [address] Nov, [facility] [address] [id number] [address] [place] [address], [place] [address] Nov, [facility] [address] [id number] [address] [place] [address], [place] [address] Nov, [facility] [address] [id number] [address] [place] [address], [place] [address] Nov, [facility] [address] [id number] [address] [place] [address], [place] [address] Oct, [facility] [address] [id number] [address] [place] [address], [place] [address] Oct, [facility] [address] [id number] [address] [place] [address], [place] [address] Aug, [facility] [address] [id number] [address] [place] [address], [place] [address] Aug, [facility] [address] [id number] [address] [place] [address], [place] [address] Jul, [facility] [address] [id number] [address] [place] [address], [place] [address] Jun, [facility] [address] [id number] [address] [place] [address], [place] [address] Jun, [facility] [address] [id number] [address] [place] [address], [place] [address] Jun, [facility] [address] [id number] [address] [place] [address], [place] [id number] Jun, [facility] [address] [id number] [address] [place] [address], [place] [id number] Jun, [facility] [address] [id number] [address] [place] [address], [place] [address] Jun, [facility] [address] [id number] [address] [place] [id number] May, [facility] [address] [facility] [id number] [address] [place] [id number] March, [facility] [address] [facility] [id number] [address] [place] [id number] March, [facility] [address] [facility] [id number] [address] [place] [id number] Jan, IMMUNIZATIONS No Known Immunizations SOCIAL HISTORY Never Assessed REASON FOR VISIT PT follow-up PLAN OF CARE Activity Details Follow Up prn Reason:F/U PT VITAL SIGNS MEDICATIONS Unknown Medications RESULTS No Results PROCEDURES Procedure Date Ordered Result Body Site THERAPEUTIC EXERCISES February 13, 2018 INSTRUCTIONS MEDICATIONS ADMINISTERED No Known Medications [...] cyst Hospitalization History surgery Hospitalization History [facility]- Right Leg Pain 09/21/2017 Hospitalization History [facility]- Severe Dehydr ation with Acute Renal Failure 05/06/2018 Hospitalization History Back surgery to remove cyst/ infecti on
--- OUTSIDE RECORDS SUMMARY | 2020-03-23 01:02 | XMS REPORT ---
Author Author Zoran RAMIREZ Organization [facility] Address [address] [place] [address] Care Team Providers Care District Or District Office Director Name Role Phone RAMIREZCHERIE RizoELE Unavailable PROBLEMS Type Condition ICD9-CM Code DPU90-YH Code Onset Dates Condition S tatus SNOMED Code Problem Atherosclerotic heart diseas e of [place] coronary artery without angina pectoris I25.10 Active 180011927 Problem Cervical stenosis of spine M48.02 Act cynthia 57597652 Problem Other chronic pain G89.29 Active 8 8782088 Problem Type 2 diabetes mellitus with other specified complication E11.69 Active 7336779 Problem HTN (hypertension) I10 Active 3 9813586 Problem Cervicalgia M54.2 Active 08034558 8069292 Problem Cannabis abuse F12.10 Active 59791 009 Problem Recurrent major depressive disorder, in full remission F33.42 Active 581488335 Problem Hypercholesterolemia E78.0 Active 85002679 Problem Parkinsons disease G20 Active 4 3166880 Problem Lumbar spondylosis M47.816 Active 2 59598434 Problem 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 Active [id number] ALLERGIES No Information ENCOUNTERS Encounter Location Date Diagnosis [facility] [address] [facility] [id number] [address] [place] [phone] Jun, [facility] [address] [facility] [id number] [address] [place] [phone] Apr, [facility] [address] [facility] [id number] [address] [place] [phone] Apr, Dehydration E86.0 ; Acute re nal failure, unspecified acute renal failure type N17.9 ; Cannabis abuse F12.10 ; Type 2 diabetes mellitus with other specified complication E11.69 ; HTN (hypertension) I10 ; Parkinsons disease G20 ; Hypercholesterolemia E78.0 ; Atherosclerotic heart disease of [place] coronary artery without angina pectoris I25.10 ; Cervicalgia M54.2 ; Need for hepatitis C screening test Z11.59 and Recurrent major depressive disorder, in full remission F33.42 [place] [address] [address] 18 Apr, 2018 [place] [address] [address] 14 Apr, 2018 Dehydration E86.0 ; Hypotens ion, unspecified hypotension type I95.9 ; Fall, initial encounter W19.XXXA ; Acute head injury without loss of consciousness, initial encounter S09.90XA ; Type 2 diabetes mellitus with other specified complication E11.69 ; HTN (hypertension) I10 and Parkinsons disease G20 [place] [address] [address] 14 Apr, 2018 [place] [address] [address] 12 Apr, 2018 [place] [address] [address] Feb, Cervicalgia M54.2 [place] [address] [address] Feb, Cervical stenosis of spine M 48.02 [place] [address] [address] Jan, Cervicalgia M54.2 [place] [address] [address] Jan, Acute right-sided low back p ain with right-sided sciatica M54.41 [place] [address] [address] Dec, Cervicalgia M54.2 [place] [address] [place] [id number] [place] [address] Dec, Controlled substance agreeme nt signed Z79.899 [place] [address] [address] Oct, Cervicalgia M54.2 [place] [address] [id number] [address] [place] [phone] Oct, Acute right-sided low back p ain with right-sided sciatica M54.41 [place] [address] [id number] [address] [place] [id number] Oct, [place] [address] [facility] [id number] [address] [place] [phone] Sep, Cervicalgia M54.2 [place] [address] [id number] [address] [place] [address] 14 Sep, 2017 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 [place] [address] [id number] [address] [place] [id number] 13 Sep, 2017 Lumbar back pain with radicu lopathy affecting right lower extremity M54.17 [place] [address] [facility] [id number] [address] [place] [id number] 03 Sep, 2017 Acute right-sided low back p ain with right-sided sciatica M54.41 [place] [address] [facility] [id number] [address] [place] [phone] Aug, Type 2 diabetes mellitus wit h other specified complication E11.69 ; HTN (hypertension) I10 ; Cervicalgia M54.2 ; Cervical stenosis of spine M48.02 ; Acute right hip pain M25.551 ; Atherosclerotic heart disease of [place] coronary artery without angina pectoris I25.10 ; Hypercholesterolemia E78.0 ; Parkinsons disease G20 and Depression F32.9 [place] [address] [facility] [id number] [address] [place] [phone] Aug, Other chronic pain G89.29 [place] [address] [facility] [id number] [address] [place] [phone] Jul, Other chronic pain G89.29 [place] [address] [facility] [id number] [address] [place] [phone] Jul, [facility] [address] [id number] [address] [place] [phone] Jul, Cough R05 and Bronchitis J40 [facility] [address] [id number] [address] [place] [phone] Jun, Other chronic pain G89.29 [facility] [address] [id number] [address] [place] [phone] Jun, [facility] [address] [id number] [address] [place] [phone] Jun, Atherosclerotic heart diseas e of [place] coronary artery without angina pectoris I25.10 and Cervicalgia M54.2 [facility] [address] [id number] [address] [place] [id number] Jun, Cervicalgia M54.2 [facility] [address] [id number] [address] [place] [phone] May, Other chronic pain G89.29 [facility] [address] [id number] [address] [place] [phone] May, [facility] [address] [id number] [address] [place] [phone] May, [facility] [address] [id number] [address] [place] [phone] May, [facility] [address] [id number] [address] [place] [phone] May, [facility] [address] [id number] [address] [place] [phone] May, Type 2 diabetes mellitus wit h other specified complication E11.69 ; HTN (hypertension) I10 ; Atherosclerotic heart disease of [place] coronary artery without angina pectoris I25.10 ; Parkinsons disease G20 and Cervical stenosis of spine M48.02 [facility] [address] [id number] [address] [place] [phone] Apr, Cervicalgia M54.2 [facility] [address] [facility] [id number] [address] [place] [phone] Apr, Type 2 diabetes mellitus wit h other specified complication E11.69 ; HTN (hypertension) I10 ; Depression F32.9 ; Atherosclerotic heart disease of [place] coronary artery without angina pectoris I25.10 ; Coronary atherosclerosis due to lipid rich plaque I25.83 ; Cervicalgia M54.2 ; Parkinsons disease G20 ; Chronic diarrhea K52.9 and Pure hypercholesterolemia E78.00 [place] [address] [facility] [id number] [address] [place] [phone] March, Other chronic pain G89.29 [place] [address] [facility] [id number] [address] [place] [phone] March, Other chronic pain G89.29 [place] [address] [facility] [id number] [address] [place] [phone] Feb, Cervical stenosis of spine M 48.02 [place] [address] [facility] [id number] [address] [place] [phone] Feb, Other chronic pain G89.29 [place] [address] [facility] [id number] [address] [place] [phone] Jan, [place] [address] [facility] [id number] [address] [place] [phone] Jan, Other chronic pain G89.29 [place] [address] [facility] [id number] [address] [place] [phone] Jan, Other chronic pain G89.29 [place] [address] [facility] [id number] [address] [place] [phone] Jan, Type 2 diabetes mellitus wit h other specified complication E11.69 ; Atherosclerotic heart disease of [place] coronary artery without angina pectoris I25.10 ; Anxiety F41.9 ; HTN (hypertension) I10 ; Depression F32.9 ; Coronary atherosclerosis due to lipid rich plaque I25.83 ; Cervicalgia M54.2 ; Other chronic pain G89.29 and Functional 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 [place] [address] [address] Nov, HTN (hypertension) I10 [facility] [address] [address] Nov, Type 2 diabetes mellitus wit h other specified complication E11.69 ; Atherosclerotic heart disease of [place] coronary artery without angina pectoris I25.10 ; Hypercholesterolemia E78.0 ; Anxiety F41.9 ; Depression F32.9 ; Cervicalgia M54.2 and Functional 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 [facility] [address] [address] Oct, [facility] [address] [address] Oct, Neck pain M54.2 [facility] [address] [address] Sep, [facility] [address] [address] Aug, [facility] [address] [address] Aug, [facility] [address] [place] [id number] [place] [phone] Jul, Visit for TB skin test Z11.1 and Screening for tuberculosis Z11.1 [facility] [address] [address] May, [facility] [address] [address] May, Neck pain M54.2 [facility] [address] [address] May, [facility] [address] [address] Apr, Neck pain M54.2 [facility] [address] [address] Feb, Neck pain M54.2 [facility] [address] [address] Feb, [facility] [address] [address] Jan, Neck pain M54.2 [facility] [address] [address] Jan, [facility] [address] [address] Jan, Neck pain M54.2 [place] [address] [address] Jan, Neck pain M54.2 ; Type 2 sarath betes mellitus with other specified complication E11.69 ; CAD (coronary artery disease) 414.00 ; Insomnia 780.52 ; Anxiety F41.9 ; Depression F32.9 ; Pre-ulcerative calluses L84 and Hypercholesterolemia E78.0 [place] [address] [address] Nov, [place] [address] [address] Nov, Type 2 diabetes mellitus wit h other specified complication E11.69 ; Pre-ulcerative calluses L84 ; HTN (hypertension) I10 ; Hypercholesterolemia E78.0 ; Anxiety F41.9 ; Depression F32.9 ; Environmental allergies Z91.09 and Osteoarthritis M19.90 [place] [address] [address] Sep, [place] [address] [address] Aug, Allergic rhinitis, seasonal J30.2 [place] [address] [address] Jul, [place] [address] [address] Jul, Other specified cardiac dysr hythmias 427.89 ; Essential hypertension, benign 401.1 ; Nondependent tobacco use disorder 305.1 ; Unspecified hereditary and idiopathic peripheral neuropathy 356.9 ; Diabetes mellitus without mention of complication, type II or unspecified type, not stated as uncontrolled 250.00 ; CAD (coronary artery disease) 414.00 ; Insomnia 780.52 and Depression 311 [facility] [address] [id number] [address] [place] [phone] Jul, [facility] [address] [id number] [address] [place] [phone] Jul, [facility] [address] [id number] [address] [place] [phone] May, [facility] [address] [id number] [address] [place] [phone] May, [facility] [address] [facility] [id number] [address] [place] [phone] May, [facility] [address] [id number] [address] [place] [phone] Apr, [facility] [address] [facility] [id number] [address] [place] [phone] Apr, Skin lesion of face 709.9 an d Anxiety 300.00 [facility] [address] [facility] [id number] [address] [place] [phone] March, [facility] [address] [facility] [id number] [address] [place] [phone] Feb, [facility] [address] [id number] [address] [place] [phone] Feb, [facility] [address] [facility] [id number] [address] [place] [phone] Jan, [facility] [address] [id number] [address] [place] [phone] Jan, [facility] [address] [facility] [id number] [address] [place] [phone] Jan, [facility] [address] [id number] [address] [place] [address], [place] [address] Jan, [facility] [address] [id number] [address] [place] [address], [place] [address] Jan, [facility] [address] [id number] [address] [place] [address], [place] [address] Jan, [facility] [address] [id number] [address] [place] [address], [place] [address] Dec, [facility] [address] [id number] [address] [place] [address], [place] [address] Dec, [facility] [address] [id number] [address] [place] [address], [place] [address] Nov, [facility] [address] [id number] [address] [place] [address], [place] [address] Nov, [facility] [address] [id number] [address] [place] [address], [place] [address] Oct, [facility] [address] [id number] [address] [place] [address], [place] [address] Oct, [facility] [address] [id number] [address] [place] [address], [place] [address] Oct, [facility] [address] [id number] [address] [place] [address], [place] [address] Oct, [facility] [address] [id number] [address] [place] [address], [place] [address] Sep, [facility] [address] [id number] [address] [place] [address], [place] [address] Sep, [facility] [address] [id number] [address] [place] [address], [place] [address] Sep, [facility] [address] [id number] [address] [place] [address], [place] [address] Sep, [facility] [address] [id number] [address] [place] [address], [place] [address] Sep, [facility] [address] [id number] [address] [place] [address], [place] [address] Sep, [facility] [address] [id number] [address] [place] [address], [place] [address] Aug, [facility] [address] [id number] [address] [place] [address], [place] [address] Aug, [facility] [address] [id number] [address] [place] [address], [place] [address] Aug, [facility] [address] [id number] [address] [place] [address], [place] [address] Aug, [facility] [address] [id number] [address] [place] [address], [place] [address] Aug, [facility] [address] [id number] [address] [place] [address], [place] [address] Aug, [facility] [address] [id number] [address] [place] [address], [place] [address] Aug, [facility] [address] [id number] [address] [place] [address], [place] [address] Aug, [facility] [address] [id number] [address] [place] [address], [place] [address] Aug, [facility] [address] [id number] [address] [place] [address], [place] [address] Aug, [facility] [address] [id number] [address] [place] [address], [place] [address] Jul, [facility] [address] [id number] [address] [place] [address], [place] [address] Jul, [facility] [address] [id number] [address] [place] [address], [place] [address] May, [facility] [address] [id number] [address] [place] [address], [place] [address] May, [facility] [address] [id number] [address] [place] [address], [place] [address] May, [facility] [address] [id number] [address] [place] [address], [place] [address] May, [facility] [address] [id number] [address] [place] [address], [place] [address] May, [facility] [address] [id number] [address] [place] [address], [place] [address] May, [facility] [address] [id number] [address] [place] [address], [place] [address] Apr, [facility] [address] [id number] [address] [place] [address], [place] [address] Apr, [facility] [address] [id number] [address] [place] [address], [place] [address] Apr, [facility] [address] [id number] [address] [place] [address], [place] [address] Apr, [facility] [address] [id number] [address] [place] [address], [place] [address] March, [facility] [address] [id number] [address] [place] [address], [place] [address] March, [facility] [address] [id number] [address] [place] [address], [place] [address] Feb, [facility] [address] [id number] [address] [place] [address], [place] [address] Feb, [facility] [address] [id number] [address] [place] [address], [place] [address] Jan, [facility] [address] [id number] [address] [place] [address], [place] [address] Jan, [facility] [address] [id number] [address] [place] [address], [place] [address] Nov, [facility] [address] [id number] [address] [place] [phone] Nov, [facility] [address] [id number] [address] [place] [address], [place] [address] Nov, [facility] [address] [id number] [address] [place] [address], [place] [address] Nov, [facility] [address] [id number] [address] [place] [address], [place] [address] Nov, [facility] [address] [id number] [address] [place] [address], [place] [address] Nov, [facility] [address] [id number] [address] [place] [address], [place] [address] Oct, [facility] [address] [id number] [address] [place] [address], [place] [address] Oct, [facility] [address] [id number] [address] [place] [address], [place] [address] Aug, [facility] [address] [id number] [address] [place] [address], [place] [address] Aug, [facility] [address] [id number] [address] [place] [address], [place] [address] Jul, [facility] [address] [id number] [address] [place] [address], [place] [address] Jun, [facility] [address] [id number] [address] [place] [address], [place] [address] Jun, [facility] [address] [id number] [address] [place] [address], [place] [address] Jun, [facility] [address] [id number] [address] [place] [address], [place] [address] Jun, [facility] [address] [id number] [address] [place] [address], [place] [address] Jun, [facility] [address] [id number] [address] [place] [address], [place] [id number] Jun, [facility] [address] [facility] [id number] [address] [place] [id number] May, [facility] [address] [facility] [id number] [address] [place] [id number] March, [facility] [address] [facility] [id number] [address] [place] [phone] March, [facility] [address] [facility] [id number] [address] [place] [id number] Jan, IMMUNIZATIONS No Known Immunizations SOCIAL HISTORY Never Assessed REASON FOR VISIT Controlled Med Refill PLAN OF CARE VITAL SIGNS MEDICATIONS Medication Instructions Dosage Frequency Start Date End Date Duration S anitha Baclofen 10 mg Orally Three times a day 1 tablet with food or milk 8h May, 30 day(s) Active RESULTS No Results PROCEDURES [...] cyst Hospitalization History surgery Hospitalization History [facility]- Right Leg Pain 09/21/2017 Hospitalization History [facility]- Severe Dehydr ation with Acute Renal Failure 05/06/2018 Hospitalization History Back surgery to remove cyst/ infecti on
--- OUTSIDE RECORDS SUMMARY | 2020-03-23 01:02 | XMS REPORT ---
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 Active 679249417 Problem Cervical stenosis of spine M48.02 Act cynthia 67104838 Problem Other chronic pain G89.29 Active 8 3786304 Problem Type 2 diabetes mellitus with other specified complication E11.69 Active 8922293 Problem HTN (hypertension) I10 Active 3 6847889 Problem Cervicalgia M54.2 Active 36166032 5029174 Problem Cannabis abuse F12.10 Active 25193 009 Problem Recurrent major depressive disorder, in full remission F33.42 Active 726091089 Problem Hypercholesterolemia E78.0 Active 19332419 Problem Parkinsons disease G20 Active 4 5619521 Problem Lumbar spondylosis M47.816 Active 2 65539963 Problem 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 Active [id number] ALLERGIES No Information ENCOUNTERS Encounter Location Date Diagnosis [facility] [address] [facility] [id number] [address] [place] [address] Jun, [facility] [address] [facility] [id number] [address] [place] [address] Apr, [facility] [address] [facility] [id number] [address] [place] [address] Apr, Dehydration E86.0 ; Acute re nal failure, unspecified acute renal failure type N17.9 ; Cannabis abuse F12.10 ; Type 2 diabetes mellitus with other specified complication E11.69 ; HTN (hypertension) I10 ; Parkinsons disease G20 ; Hypercholesterolemia E78.0 ; 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 ; Cervicalgia M54.2 ; Need for hepatitis C screening test Z11.59 and Recurrent major depressive disorder, in full remission F33.42 [place] [address] [address] 18 Apr, 2018 [place] [address] [address] 14 Apr, 2018 Dehydration E86.0 ; Hypotens ion, unspecified hypotension type I95.9 ; Fall, initial encounter W19.XXXA ; Acute head injury without loss of consciousness, initial encounter S09.90XA ; Type 2 diabetes mellitus with other specified complication E11.69 ; HTN (hypertension) I10 and Parkinsons disease G20 [place] [address] [address] 14 Apr, 2018 [place] [address] [address] 12 Apr, 2018 [place] [address] [address] Feb, Cervicalgia M54.2 [place] [address] [address] Feb, Cervical stenosis of spine M 48.02 [place] [address] [address] Jan, Cervicalgia M54.2 [place] [address] [address] Jan, Acute right-sided low back p ain with right-sided sciatica M54.41 [place] [address] [address] Dec, Cervicalgia M54.2 [place] [address] [place] [id number] [address] Dec, Controlled substance agreeme nt signed Z79.899 [place] [address] [address] Oct, Cervicalgia M54.2 [place] [address] [id number] [address] [place] [address] Oct, Acute right-sided low back p ain with right-sided sciatica M54.41 [place] [address] [id number] [address] [place] [address] Oct, [place] [address] [facility] [id number] [address] [place] [address] Sep, Cervicalgia M54.2 [place] [address] [id number] [address] [place] [address] 14 Sep, 2017 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 [place] [address] [id number] [address] [place] [address] 13 Sep, 2017 Lumbar back pain with radicu lopathy affecting right lower extremity M54.17 [place] [address] [facility] [id number] [address] [place] [address] 03 Sep, 2017 Acute right-sided low back p ain with right-sided sciatica M54.41 [place] [address] [facility] [id number] [address] [place] [address] Aug, Type 2 diabetes mellitus wit h other specified complication E11.69 ; HTN (hypertension) I10 ; Cervicalgia M54.2 ; Cervical stenosis of spine M48.02 ; Acute right hip pain M25.551 ; 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 ; Hypercholesterolemia E78.0 ; Parkinsons disease G20 and Depression F32.9 [place] [address] [facility] [id number] [address] [place] [address] Aug, Other chronic pain G89.29 [place] [address] [facility] [id number] [address] [place] [address] Jul, Other chronic pain G89.29 [place] [address] [facility] [id number] [address] [place] [address] Jul, [facility] [address] [id number] [address] [place] [address] Jul, Cough R05 and Bronchitis J40 [facility] [address] [id number] [address] [place] [address] Jun, Other chronic pain G89.29 [facility] [address] [id number] [address] [place] [address] Jun, [facility] [address] [id number] [address] [place] [address] Jun, 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 and Cervicalgia M54.2 [facility] [address] [id number] [address] [place] [address] Jun, Cervicalgia M54.2 [facility] [address] [id number] [address] [place] [address] May, Other chronic pain G89.29 [facility] [address] [id number] [address] [place] [address] May, [facility] [address] [id number] [address] [place] [address] May, [facility] [address] [id number] [address] [place] [address] May, [facility] [address] [id number] [address] [place] [address] May, [facility] [address] [id number] [address] [place] [address] May, Type 2 diabetes mellitus wit h other specified complication E11.69 ; HTN (hypertension) I10 ; 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 ; Parkinsons disease G20 and Cervical stenosis of spine M48.02 [facility] [address] [id number] [address] [place] [address] Apr, Cervicalgia M54.2 [facility] [address] [facility] [id number] [address] [place] [address] Apr, Type 2 diabetes mellitus wit h other specified complication E11.69 ; HTN (hypertension) I10 ; Depression F32.9 ; 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02 [place] [address] [facility] [id number] [address] [place] [address] Feb, Other chronic pain G89.29 [place] [address] [facility] [id number] [address] [place] [address] Jan, [place] [address] [facility] [id number] [address] [place] [address] Jan, Other chronic pain G89.29 [place] [address] [facility] [id number] [address] [place] [address] Jan, Other chronic pain G89.29 [place] [address] [facility] [id number] [address] [place] [address] Jan, Type 2 diabetes mellitus wit h other specified complication E11.69 ; 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 ; Anxiety F41.9 ; HTN (hypertension) I10 ; Depression F32.9 ; Coronary atherosclerosis due to lipid rich plaque I25.83 ; Cervicalgia M54.2 ; Other chronic pain G89.29 and Functional 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 [place] [address] [address] [address] Nov, HTN (hypertension) I10 [facility] [address] [address] Nov, Type 2 diabetes mellitus wit h other specified complication E11.69 ; 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 ; Hypercholesterolemia E78.0 ; Anxiety F41.9 ; Depression F32.9 ; Cervicalgia M54.2 and Functional 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 [facility] [address] [address] Oct, [facility] [address] [address] Oct, Neck pain M54.2 [facility] [address] [address] Sep, [facility] [address] [address] Aug, [facility] [address] [address] Aug, [facility] [address] [place] [id number] [address] Jul, Visit for TB skin test Z11.1 and Screening for tuberculosis Z11.1 [facility] [address] [address] May, [facility] [address] [address] May, Neck pain M54.2 [facility] [address] [address] May, [facility] [address] [address] Apr, Neck pain M54.2 [facility] [address] [address] Feb, Neck pain M54.2 [facility] [address] [address] Feb, [facility] [address] [address] Jan, Neck pain M54.2 [facility] [address] [address] Jan, [facility] [address] [address] Jan, Neck pain M54.2 [place] [address] [address] Jan, Neck pain M54.2 ; Type 2 sarath betes mellitus with other specified complication E11.69 ; CAD (coronary artery disease) 414.00 ; Insomnia 780.52 ; Anxiety F41.9 ; Depression F32.9 ; Pre-ulcerative calluses L84 and Hypercholesterolemia E78.0 [place] [address] [address] Nov, [place] [address] [address] Nov, Type 2 diabetes mellitus wit h other specified complication E11.69 ; Pre-ulcerative calluses L84 ; HTN (hypertension) I10 ; Hypercholesterolemia E78.0 ; Anxiety F41.9 ; Depression F32.9 ; Environmental allergies Z91.09 and Osteoarthritis M19.90 [place] [address] [address] Sep, [place] [address] [address] Aug, Allergic rhinitis, seasonal J30.2 [place] [address] [address] Jul, [place] [address] [address] Jul, Other specified cardiac dysr hythmias 427.89 ; Essential hypertension, benign 401.1 ; Nondependent tobacco use disorder 305.1 ; Unspecified hereditary and idiopathic peripheral neuropathy 356.9 ; Diabetes mellitus without mention of complication, type II or unspecified type, not stated as uncontrolled 250.00 ; CAD (coronary artery disease) 414.00 ; Insomnia 780.52 and Depression 311 [facility] [address] [id number] [address] [place] [address] Jul, [facility] [address] [id number] [address] [place] [address] Jul, [facility] [address] [id number] [address] [place] [address] May, [facility] [address] [id number] [address] [place] [address] May, [facility] [address] [facility] [id number] [address] [place] [address] May, [facility] [address] [id number] [address] [place] [address] Apr, [facility] [address] [facility] [id number] [address] [place] [address] Apr, Skin lesion of face 709.9 an d Anxiety 300.00 [facility] [address] [facility] [id number] [address] [place] [address] March, [facility] [address] [facility] [id number] [address] [place] [address] Feb, [facility] [address] [id number] [address] [place] [address] Feb, [facility] [address] [facility] [id number] [address] [place] [address] Jan, [facility] [address] [id number] [address] [place] [address] Jan, [facility] [address] [facility] [id number] [address] [place] [address] Jan, [facility] [address] [id number] [address] [place] [address], [place] [address] Jan, [facility] [address] [id number] [address] [place] [address], [place] [address] Jan, [facility] [address] [id number] [address] [place] [address], [place] [address] Jan, [facility] [address] [id number] [address] [place] [address], [place] [address] Dec, [facility] [address] [id number] [address] [place] [address], [place] [address] Dec, [facility] [address] [id number] [address] [place] [address], [place] [address] Nov, [facility] [address] [id number] [address] [place] [address], [place] [address] Nov, [facility] [address] [id number] [address] [place] [address], [place] [address] Oct, [facility] [address] [id number] [address] [place] [address], [place] [address] Oct, [facility] [address] [id number] [address] [place] [address], [place] [address] Oct, [facility] [address] [id number] [address] [place] [address], [place] [address] Oct, [facility] [address] [id number] [address] [place] [address], [place] [address] Sep, [facility] [address] [id number] [address] [place] [address], [place] [address] Sep, [facility] [address] [id number] [address] [place] [address], [place] [address] Sep, [facility] [address] [id number] [address] [place] [address], [place] [address] Sep, [facility] [address] [id number] [address] [place] [address], [place] [address] Sep, [facility] [address] [id number] [address] [place] [address], [place] [address] Sep, [facility] [address] [id number] [address] [place] [address], [place] [address] Aug, [facility] [address] [id number] [address] [place] [address], [place] [address] Aug, [facility] [address] [id number] [address] [place] [address], [place] [address] Aug, [facility] [address] [id number] [address] [place] [address], [place] [address] Aug, [facility] [address] [id number] [address] [place] [address], [place] [address] Aug, [facility] [address] [id number] [address] [place] [address], [place] [address] Aug, [facility] [address] [id number] [address] [place] [address], [place] [address] Aug, [facility] [address] [id number] [address] [place] [address], [place] [address] Aug, [facility] [address] [id number] [address] [place] [address], [place] [address] Aug, [facility] [address] [id number] [address] [place] [address], [place] [address] Aug, [facility] [address] [id number] [address] [place] [address], [place] [address] Jul, [facility] [address] [id number] [address] [place] [address], [place] [address] Jul, [facility] [address] [id number] [address] [place] [address], [place] [address] May, [facility] [address] [id number] [address] [place] [address], [place] [address] May, [facility] [address] [id number] [address] [place] [address], [place] [address] May, [facility] [address] [id number] [address] [place] [address], [place] [address] May, [facility] [address] [id number] [address] [place] [address], [place] [address] May, [facility] [address] [id number] [address] [place] [address], [place] [address] May, [facility] [address] [id number] [address] [place] [address], [place] [address] Apr, [facility] [address] [id number] [address] [place] [address], [place] [address] Apr, [facility] [address] [id number] [address] [place] [address], [place] [address] Apr, [facility] [address] [id number] [address] [place] [address], [place] [address] Apr, [facility] [address] [id number] [address] [place] [address], [place] [address] March, [facility] [address] [id number] [address] [place] [address], [place] [address] March, [facility] [address] [id number] [address] [place] [address], [place] [address] Feb, [facility] [address] [id number] [address] [place] [address], [place] [address] Feb, [facility] [address] [id number] [address] [place] [address], [place] [address] Jan, [facility] [address] [id number] [address] [place] [address], [place] [address] Jan, [facility] [address] [id number] [address] [place] [address], [place] [address] Nov, [facility] [address] [id number] [address] [place] [address] Nov, [facility] [address] [id number] [address] [place] [address], [place] [address] Nov, [facility] [address] [id number] [address] [place] [address], [place] [address] Nov, [facility] [address] [id number] [address] [place] [address], [place] [address] Nov, [facility] [address] [id number] [address] [place] [address], [place] [address] Nov, [facility] [address] [id number] [address] [place] [address], [place] [address] Oct, [facility] [address] [id number] [address] [place] [address], [place] [address] Oct, [facility] [address] [id number] [address] [place] [address], [place] [address] Aug, [facility] [address] [id number] [address] [place] [address], [place] [address] Aug, [facility] [address] [id number] [address] [place] [address], [place] [address] Jul, [facility] [address] [id number] [address] [place] [address], [place] [address] Jun, [facility] [address] [id number] [address] [place] [address], [place] [address] Jun, [facility] [address] [id number] [address] [place] [address], [place] [address] Jun, [facility] [address] [id number] [address] [place] [address], [place] [address] Jun, [facility] [address] [id number] [address] [place] [address], [place] [address] Jun, [facility] [address] [id number] [address] [place] [address], [place] [address] Jun, [facility] [address] [facility] [id number] [address] [place] [address] May, [facility] [address] [facility] [id number] [address] [place] [address] March, [facility] [address] [facility] [id number] [address] [place] [address] March, [facility] [address] [facility] [id number] [address] [place] [phone] Jan, IMMUNIZATIONS No Known Immunizations SOCIAL HISTORY Never Assessed REASON FOR VISIT Controlled Med Refill PLAN OF CARE VITAL SIGNS MEDICATIONS Medication Instructions Dosage Frequency Start Date End Date Duration S tatus Ultram 50 mg Orally 2 times a day 1 tablet as needed 12h 14 days Active RESULTS No Results PROCEDURES No [...] Street- Right Leg Pain 09/21/2017 Hospitalization History [facility]- Severe Dehydr ation with Acute Renal Failure 05/06/2018 Hospitalization History Back surgery to remove cyst/ infecti on
--- OUTSIDE RECORDS SUMMARY | 2020-03-23 01:03 | XMS REPORT ---
Author Author Zoran RAMIREZ Organization [facility] Address [address] [place] [address] Care Team Providers Care Bookbinder Apprentice Name Role Phone RAMIREZCHERIE RizoELE Unavailable PROBLEMS Type Condition ICD9-CM Code EIJ90-AP Code Onset Dates Condition S tatus SNOMED Code Problem Atherosclerotic heart diseas e of [place] coronary artery without angina pectoris I25.10 Active 735468066 Problem Cervical stenosis of spine M48.02 Act cynthia 82672484 Problem Other chronic pain G89.29 Active 8 1996399 Problem Type 2 diabetes mellitus with other specified complication E11.69 Active 7379984 Problem HTN (hypertension) I10 Active 3 0541089 Problem Cervicalgia M54.2 Active 30288494 8960759 Problem Cannabis abuse F12.10 Active 98966 009 Problem Recurrent major depressive disorder, in full remission F33.42 Active 902822280 Problem Hypercholesterolemia E78.0 Active 96037217 Problem Parkinsons disease G20 Active 4 2662954 Problem Lumbar spondylosis M47.816 Active 2 87215270 Problem 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 Active 685528879 ALLERGIES No Information ENCOUNTERS Encounter Location Date Diagnosis [facility] [address] [facility] [id number] [address] [place] [address] Jun, [facility] [address] [facility] [id number] [address] [place] [address] Apr, [facility] [address] [facility] [id number] [address] [place] [address] Apr, Dehydration E86.0 ; Acute re nal failure, unspecified acute renal failure type N17.9 ; Cannabis abuse F12.10 ; Type 2 diabetes mellitus with other specified complication E11.69 ; HTN (hypertension) I10 ; Parkinsons disease G20 ; Hypercholesterolemia E78.0 ; Atherosclerotic heart disease of [place] coronary artery without angina pectoris I25.10 ; Cervicalgia M54.2 ; Need for hepatitis C screening test Z11.59 and Recurrent major depressive disorder, in full remission F33.42 [place] [address] [address] 18 Apr, 2018 [place] [address] [address] 14 Apr, 2018 Dehydration E86.0 ; Hypotens ion, unspecified hypotension type I95.9 ; Fall, initial encounter W19.XXXA ; Acute head injury without loss of consciousness, initial encounter S09.90XA ; Type 2 diabetes mellitus with other specified complication E11.69 ; HTN (hypertension) I10 and Parkinsons disease G20 [place] [address] [address] 14 Apr, 2018 [place] [address] [address] 12 Apr, 2018 [place] [address] [address] Feb, Cervicalgia M54.2 [place] [address] [address] Feb, Cervical stenosis of spine M 48.02 [place] [address] [address] Jan, Cervicalgia M54.2 [place] [address] [address] Jan, Acute right-sided low back p ain with right-sided sciatica M54.41 [place] [address] [address] Dec, Cervicalgia M54.2 [place] [address] [place] [id number] [place] [address] Dec, Controlled substance agreeme nt signed Z79.899 [place] [address] [address] Oct, Cervicalgia M54.2 [place] [address] [id number] [address] [place] [address] Oct, Acute right-sided low back p ain with right-sided sciatica M54.41 [place] [address] [id number] [address] [place] [address] Oct, [place] [address] [facility] [id number] [address] [place] [address] Sep, Cervicalgia M54.2 [place] [address] [id number] [address] [place] [address] 14 Sep, 2017 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 [place] [address] [id number] [address] [place] [address] 13 Sep, 2017 Lumbar back pain with radicu lopathy affecting right lower extremity M54.17 [place] [address] [facility] [id number] [address] [place] [address] 03 Sep, 2017 Acute right-sided low back p ain with right-sided sciatica M54.41 [place] [address] [facility] [id number] [address] [place] [address] Aug, Type 2 diabetes mellitus wit h other specified complication E11.69 ; HTN (hypertension) I10 ; Cervicalgia M54.2 ; Cervical stenosis of spine M48.02 ; Acute right hip pain M25.551 ; Atherosclerotic heart disease of [place] coronary artery without angina pectoris I25.10 ; Hypercholesterolemia E78.0 ; Parkinsons disease G20 and Depression F32.9 [place] [address] [facility] [id number] [address] [place] [address] Aug, Other chronic pain G89.29 [place] [address] [facility] [id number] [address] [place] [address] Jul, Other chronic pain G89.29 [place] [address] [facility] [id number] [address] [place] [address] Jul, [facility] [address] [id number] [address] [place] [address] Jul, Cough R05 and Bronchitis J40 [facility] [address] [id number] [address] [place] [address] Jun, Other chronic pain G89.29 [facility] [address] [id number] [address] [place] [address] Jun, [facility] [address] [id number] [address] [place] [address] Jun, Atherosclerotic heart diseas e of [place] coronary artery without angina pectoris I25.10 and Cervicalgia M54.2 [facility] [address] [id number] [address] [place] [address] Jun, Cervicalgia M54.2 [facility] [address] [id number] [address] [place] [address] May, Other chronic pain G89.29 [facility] [address] [id number] [address] [place] [address] May, [facility] [address] [id number] [address] [place] [address] May, [facility] [address] [id number] [address] [place] [address] May, [facility] [address] [id number] [address] [place] [address] May, [facility] [address] [id number] [address] [place] [address] May, Type 2 diabetes mellitus wit h other specified complication E11.69 ; HTN (hypertension) I10 ; Atherosclerotic heart disease of [place] coronary artery without angina pectoris I25.10 ; Parkinsons disease G20 and Cervical stenosis of spine M48.02 [facility] [address] [id number] [address] [place] [address] Apr, Cervicalgia M54.2 [facility] [address] [facility] [id number] [address] [place] [address] Apr, Type 2 diabetes mellitus wit h other specified complication E11.69 ; HTN (hypertension) I10 ; Depression F32.9 ; Atherosclerotic heart disease of [place] coronary artery without angina pectoris I25.10 ; Coronary atherosclerosis due to lipid rich plaque I25.83 ; Cervicalgia M54.2 ; Parkinsons disease G20 ; Chronic diarrhea K52.9 and Pure hypercholesterolemia E78.00 [place] [address] [facility] [id number] [address] [place] [address] March, Other chronic pain G89.29 [place] [address] [facility] [id number] [address] [place] [address] March, Other chronic pain G89.29 [place] [address] [facility] [id number] [address] [place] [address] Feb, Cervical stenosis of spine M 48.02 [place] [address] [facility] [id number] [address] [place] [address] Feb, Other chronic pain G89.29 [place] [address] [facility] [id number] [address] [place] [address] Jan, [place] [address] [facility] [id number] [address] [place] [address] Jan, Other chronic pain G89.29 [place] [address] [facility] [id number] [address] [place] [address] Jan, Other chronic pain G89.29 [place] [address] [facility] [id number] [address] [place] [address] Jan, Type 2 diabetes mellitus wit h other specified complication E11.69 ; Atherosclerotic heart disease of [place] coronary artery without angina pectoris I25.10 ; Anxiety F41.9 ; HTN (hypertension) I10 ; Depression F32.9 ; Coronary atherosclerosis due to lipid rich plaque I25.83 ; Cervicalgia M54.2 ; Other chronic pain G89.29 and Functional 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 [place] [address] [address] Nov, HTN (hypertension) I10 [facility] [address] [address] Nov, Type 2 diabetes mellitus wit h other specified complication E11.69 ; Atherosclerotic heart disease of [place] coronary artery without angina pectoris I25.10 ; Hypercholesterolemia E78.0 ; Anxiety F41.9 ; Depression F32.9 ; Cervicalgia M54.2 and Functional 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 [facility] [address] [address] Oct, [facility] [address] [address] Oct, Neck pain M54.2 [facility] [address] [address] Sep, [facility] [address] [address] Aug, [facility] [address] [address] Aug, [facility] [address] [place] [id number] [place] [address] Jul, Visit for TB skin test Z11.1 and Screening for tuberculosis Z11.1 [facility] [address] [address] May, [facility] [address] [address] May, Neck pain M54.2 [facility] [address] [address] May, [facility] [address] [address] Apr, Neck pain M54.2 [facility] [address] [address] Feb, Neck pain M54.2 [facility] [address] [address] Feb, [facility] [address] [address] Jan, Neck pain M54.2 [facility] [address] [address] Jan, [facility] [address] [address] Jan, Neck pain M54.2 [place] [address] [address] Jan, Neck pain M54.2 ; Type 2 sarath betes mellitus with other specified complication E11.69 ; CAD (coronary artery disease) 414.00 ; Insomnia 780.52 ; Anxiety F41.9 ; Depression F32.9 ; Pre-ulcerative calluses L84 and Hypercholesterolemia E78.0 [place] [address] [address] Nov, [place] [address] [address] Nov, Type 2 diabetes mellitus wit h other specified complication E11.69 ; Pre-ulcerative calluses L84 ; HTN (hypertension) I10 ; Hypercholesterolemia E78.0 ; Anxiety F41.9 ; Depression F32.9 ; Environmental allergies Z91.09 and Osteoarthritis M19.90 [place] [address] [address] Sep, [place] [address] [address] Aug, Allergic rhinitis, seasonal J30.2 [place] [address] [address] Jul, [place] [address] [address] Jul, Other specified cardiac dysr hythmias 427.89 ; Essential hypertension, benign 401.1 ; Nondependent tobacco use disorder 305.1 ; Unspecified hereditary and idiopathic peripheral neuropathy 356.9 ; Diabetes mellitus without mention of complication, type II or unspecified type, not stated as uncontrolled 250.00 ; CAD (coronary artery disease) 414.00 ; Insomnia 780.52 and Depression 311 [facility] [address] [id number] [address] [place] [address] Jul, [facility] [address] [id number] [address] [place] [address] Jul, [facility] [address] [id number] [address] [place] [address] May, [facility] [address] [id number] [address] [place] [address] May, [facility] [address] [facility] [id number] [address] [place] [address] May, [facility] [address] [id number] [address] [place] [address] Apr, [facility] [address] [facility] [id number] [address] [place] [address] Apr, Skin lesion of face 709.9 an d Anxiety 300.00 [facility] [address] [facility] [id number] [address] [place] [address] March, [facility] [address] [facility] [id number] [address] [place] [address] Feb, [facility] [address] [id number] [address] [place] [address] Feb, [facility] [address] [facility] [id number] [address] [place] [address] Jan, [facility] [address] [id number] [address] [place] [address] Jan, [facility] [address] [facility] [id number] [address] [place] [address] Jan, [facility] [address] [id number] [address] [place] [address], [place] [address] Jan, [facility] [address] [id number] [address] [place] [address], [place] [address] Jan, [facility] [address] [id number] [address] [place] [address], [place] [address] Jan, [facility] [address] [id number] [address] [place] [address], [place] [address] Dec, [facility] [address] [id number] [address] [place] [address], [place] [address] Dec, [facility] [address] [id number] [address] [place] [address], [place] [address] Nov, [facility] [address] [id number] [address] [place] [address], [place] [address] Nov, [facility] [address] [id number] [address] [place] [address], [place] [address] Oct, [facility] [address] [id number] [address] [place] [address], [place] [address] Oct, [facility] [address] [id number] [address] [place] [address], [place] [address] Oct, [facility] [address] [id number] [address] [place] [address], [place] [address] Oct, [facility] [address] [id number] [address] [place] [address], [place] [address] Sep, [facility] [address] [id number] [address] [place] [address], [place] [address] Sep, [facility] [address] [id number] [address] [place] [address], [place] [address] Sep, [facility] [address] [id number] [address] [place] [address], [place] [address] Sep, [facility] [address] [id number] [address] [place] [address], [place] [address] Sep, [facility] [address] [id number] [address] [place] [address], [place] [address] Sep, [facility] [address] [id number] [address] [place] [address], [place] [address] Aug, [facility] [address] [id number] [address] [place] [address], [place] [address] Aug, [facility] [address] [id number] [address] [place] [address], [place] [address] Aug, [facility] [address] [id number] [address] [place] [address], [place] [address] Aug, [facility] [address] [id number] [address] [place] [address], [place] [address] Aug, [facility] [address] [id number] [address] [place] [address], [place] [address] Aug, [facility] [address] [id number] [address] [place] [address], [place] [address] Aug, [facility] [address] [id number] [address] [place] [address], [place] [address] Aug, [facility] [address] [id number] [address] [place] [address], [place] [address] Aug, [facility] [address] [id number] [address] [place] [address], [place] [address] Aug, [facility] [address] [id number] [address] [place] [address], [place] [address] Jul, [facility] [address] [id number] [address] [place] [address], [place] [address] Jul, [facility] [address] [id number] [address] [place] [address], [place] [address] May, [facility] [address] [id number] [address] [place] [address], [place] [address] May, [facility] [address] [id number] [address] [place] [address], [place] [address] May, [facility] [address] [id number] [address] [place] [address], [place] [address] May, [facility] [address] [id number] [address] [place] [address], [place] [address] May, [facility] [address] [id number] [address] [place] [address], [place] [address] May, [facility] [address] [id number] [address] [place] [address], [place] [address] Apr, [facility] [address] [id number] [address] [place] [address], [place] [address] Apr, [facility] [address] [id number] [address] [place] [address], [place] [address] Apr, [facility] [address] [id number] [address] [place] [address], [place] [address] Apr, [facility] [address] [id number] [address] [place] [address], [place] [address] March, [facility] [address] [id number] [address] [place] [address], [place] [address] March, [facility] [address] [id number] [address] [place] [address], [place] [address] Feb, [facility] [address] [id number] [address] [place] [address], [place] [address] Feb, [facility] [address] [id number] [address] [place] [address], [place] [address] Jan, [facility] [address] [id number] [address] [place] [address], [place] [address] Jan, [facility] [address] [id number] [address] [place] [address], [place] [address] Nov, [facility] [address] [id number] [address] [place] [address] Nov, [facility] [address] [id number] [address] [place] [address], [place] [address] Nov, [facility] [address] [id number] [address] [place] [address], [place] [address] Nov, [facility] [address] [id number] [address] [place] [address], [place] [address] Nov, [facility] [address] [id number] [address] [place] [address], [place] [address] Nov, [facility] [address] [id number] [address] [place] [address], [place] [address] Oct, [facility] [address] [id number] [address] [place] [address], [place] [address] Oct, [facility] [address] [id number] [address] [place] [address], [place] [address] Aug, [facility] [address] [id number] [address] [place] [address], [place] [address] Aug, [facility] [address] [id number] [address] [place] [address], [place] [address] Jul, [facility] [address] [id number] [address] [place] [address], [place] [address] Jun, [facility] [address] [id number] [address] [place] [address], [place] [address] Jun, [facility] [address] [id number] [address] [place] [address], [place] [address] Jun, [facility] [address] [id number] [address] [place] [address], [place] [address] Jun, [facility] [address] [id number] [address] [place] [address], [place] [address] Jun, [facility] [address] [id number] [address] [place] [address], [place] [address] Jun, [facility] [address] [facility] [id number] [address] [place] [address] May, [facility] [address] [facility] [id number] [address] [place] [address] March, [facility] [address] [facility] [id number] [address] [place] [address] March, [facility] [address] [facility] [id number] [address] [place] [address] Jan, IMMUNIZATIONS No Known Immunizations SOCIAL HISTORY Never Assessed REASON FOR VISIT Controlled Med Refill PLAN OF CARE VITAL SIGNS MEDICATIONS Medication Instructions Dosage Frequency Start Date End Date Duration S tatus Ultram 50 mg Orally 2 times a day 1 tablet as needed 12h 8 M oh2017 14 days Active RESULTS No Results PROCEDURES [...] cyst Hospitalization History surgery Hospitalization History [facility]- Right Leg Pain 09/21/2017 Hospitalization History [facility]- Severe Dehydr ation with Acute Renal Failure 05/06/2018 Hospitalization History Back surgery to remove cyst/ infecti on
--- OUTSIDE RECORDS SUMMARY | 2020-03-23 01:03 | XMS REPORT ---
Author Author Zoran RAMIREZ Organization [facility] Address [address] [place] [address] Care Team Providers Care Sample Grinder Name Role Phone ARTEMIO RAMIREZ Unavailable PROBLEMS Type Condition ICD9-CM Code [id number] Code Onset Dates Condition S tatus SNOMED Code Problem Coronary atherosclerosis due to lipid rich plaque I25.83 Active [id number] Problem Other chronic pain G89.29 Active 8 0214598 Problem Atherosclerotic heart diseas e of [place] coronary artery without angina pectoris I25.10 Active 030101494 Problem Acute right-sided low back pain with right-sided sciatica M54.41 Active 896457451 Problem Lumbar spondylosis M47.816 Active 2 58848291 Problem Parkinsons disease G20 Active 4 7762544 Problem Cervical stenosis of spine M48.02 Act cynthia 16315247 Problem 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 Active 715392461 Problem Hypercholesterolemia E78.0 Active 09796497 Problem Pure hypercholesterolemia E78.00 Acti ve 619662937 Problem Depression F32.9 Active 13407400 Problem Pre-ulcerative calluses L84 Active 65975763 Problem Type 2 diabetes mellitus with other specified complication E11.69 Active 7980976 Problem Anxiety F41.9 Active 81612134 Problem HTN (hypertension) I10 Active 3 8574583 Problem Cervicalgia M54.2 Active 89712383 [id number] ALLERGIES No Known Allergies ENCOUNTERS Encounter Location Date Diagnosis [facility] [address] [facility] [id number] [address] [place] [address] Apr, [facility] [address] [facility] [id number] [address] [place] [address] Feb, Cervicalgia M54.2 [facility] [address] [facility] [id number] [address] [place] [address] Feb, Cervical stenosis of spine M 48.02 [facility] [address] [facility] [id number] [address] [place] [address] Jan, Cervicalgia M54.2 [facility] [address] [facility] [id number] [address] [place] [address] 05 Jan, 2018 Acute right-sided low back p ain with right-sided sciatica M54.41 [facility] [address] [facility] [id number] [address] [place] [address] Dec, Cervicalgia M54.2 [facility] [address] [facility] [id number] [address] [place] [address] Dec, Controlled substance agreeme nt signed Z79.899 [facility] [address] [facility] [id number] [address] [place] [address] Oct, Cervicalgia M54.2 [place] [address] [place] [id number] [address] [place] [address] Oct, Acute right-sided low back p ain with right-sided sciatica M54.41 [place] [address] [facility] [id number] [address] [place] [address] 04 Oct, 2017 [place] [address] [facility] [id number] [address] [place] [address] 28 Sep, 2017 Cervicalgia M54.2 [place] [address] [facility] [id number] [address] [place] [address] 14 Sep, 2017 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 [facility] [address] [facility] [id number] [address] [place] [address] 13 Sep, 2017 Lumbar back pain with radicu lopathy affecting right lower extremity M54.17 [place] [address] [facility] [id number] [address] [place] [address] 03 Sep, 2017 Acute right-sided low back p ain with right-sided sciatica M54.41 [facility] [address] [facility] [id number] [address] [place] [address] Aug, Type 2 diabetes mellitus wit h other specified complication E11.69 ; HTN (hypertension) I10 ; Cervicalgia M54.2 ; Cervical stenosis of spine M48.02 ; Acute right hip pain M25.551 ; Atherosclerotic heart disease of [place] coronary artery without angina pectoris I25.10 ; Hypercholesterolemia E78.0 ; Parkinsons disease G20 and Depression F32.9 [facility] [address] [facility] [id number] [address] [place] [address] Aug, Other chronic pain G89.29 [facility] [address] [facility] [id number] [address] [place] [address] Jul, Other chronic pain G89.29 [place] [address] [facility] [id number] [address] [place] [address] Jul, [facility] [address] [facility] [id number] [address] [place] [address] Jul, Cough R05 and Bronchitis J40 [facility] [address] [facility] [id number] [address] [place] [address] Jun, Other chronic pain G89.29 [facility] [address] [facility] [id number] [address] [place] [address] Jun, [facility] [address] [facility] [id number] [address] [place] [address] Jun, Atherosclerotic heart diseas e of [place] coronary artery without angina pectoris I25.10 and Cervicalgia M54.2 [facility] [address] [facility] [id number] [address] [place] [address] Jun, Cervicalgia M54.2 [facility] [address] [facility] [id number] [address] [place] [address] May, Other chronic pain G89.29 [facility] [address] [facility] [id number] [address] [place] [address] May, [place] [address] [place] [id number] [address] [place] [address] May, [facility] [address] [id number] [address] [place] [address] May, [facility] [address] [id number] [address] [place] [address] May, [facility] [address] [facility] [id number] [address] [place] [address] May, Type 2 diabetes mellitus wit h other specified complication E11.69 ; HTN (hypertension) I10 ; Atherosclerotic heart disease of [place] coronary artery without angina pectoris I25.10 ; Parkinsons disease G20 and Cervical stenosis of spine M48.02 [facility] [address] [facility] [id number] [address] [place] [address] Apr, Cervicalgia M54.2 [place] [address] [facility] [id number] [address] [place] [address] Apr, Type 2 diabetes mellitus wit h other specified complication E11.69 ; HTN (hypertension) I10 ; Depression F32.9 ; Atherosclerotic heart disease of [place] coronary artery without angina pectoris I25.10 ; Coronary atherosclerosis due to lipid rich plaque I25.83 ; Cervicalgia M54.2 ; Parkinsons disease G20 ; Chronic diarrhea K52.9 and Pure hypercholesterolemia E78.00 [facility] [address] [facility] [id number] [address] [place] [address] March, Other chronic pain G89.29 [facility] [address] [facility] [id number] [address] [place] [address] March, Other chronic pain G89.29 [facility] [address] [id number] [address] [place] [address] Feb, Cervical stenosis of spine M 48.02 [facility] [address] [facility] [id number] [address] [place] [address] Feb, Other chronic pain G89.29 [facility] [address] [facility] [id number] [address] [place] [address] Jan, [facility] [address] [id number] 08 Jan, 2017 Other chronic pain G89.29 [facility] [address] [address] 08 Jan, 2017 Other chronic pain G89.29 [facility] [address] [address] Jan, Type 2 diabetes mellitus wit h other specified complication E11.69 ; Atherosclerotic heart disease of [place] coronary artery without angina pectoris I25.10 ; Anxiety F41.9 ; HTN (hypertension) I10 ; Depression F32.9 ; Coronary atherosclerosis due to lipid rich plaque I25.83 ; Cervicalgia M54.2 ; Other chronic pain G89.29 and Functional 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 [facility] [address] [address] Nov, HTN (hypertension) I10 [place] [address] [address] Nov, Type 2 diabetes mellitus wit h other specified complication E11.69 ; Atherosclerotic heart disease of [place] coronary artery without angina pectoris I25.10 ; Hypercholesterolemia E78.0 ; Anxiety F41.9 ; Depression F32.9 ; Cervicalgia M54.2 and Functional 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 [facility] [address] [place] [id number] [address] [place] [address] Oct, [facility] [address] [address] Oct, Neck pain M54.2 [facility] [address] [address] Sep, [facility] [address] [address] Aug, [facility] [address] [address] 04 Aug, 2016 [facility] [address] [place] [id number] [place] [address] Jul, Visit for TB skin test Z11.1 and Screening for tuberculosis Z11.1 [facility] [address] [place] [id number] [address] [place] [address] May, [facility] [address] [place] [id number] [address] [place] [address] May, Neck pain M54.2 [facility] [address] [place] [id number] [address] [place] [address] May, [facility] [address] [place] [id number] [address] [place] [address] Apr, Neck pain M54.2 [facility] [address] [place] [id number] [address] [place] [address] Feb, Neck pain M54.2 [facility] [address] [place] [id number] [address] [place] [address] Feb, [facility] [address] [place] [id number] [address] [place] [address] Jan, Neck pain M54.2 [facility] [address] [place] [id number] [address] [place] [address] Jan, [facility] [address] [place] [id number] [address] [place] [address] Jan, Neck pain M54.2 [facility] [address] [place] [id number] [address] [place] [address] Jan, Neck pain M54.2 ; Type 2 sarath betes mellitus with other specified complication E11.69 ; CAD (coronary artery disease) 414.00 ; Insomnia 780.52 ; Anxiety F41.9 ; Depression F32.9 ; Pre-ulcerative calluses L84 and Hypercholesterolemia E78.0 [facility] [address] [facility] [id number] [address] [place] [address] Nov, [facility] [address] [place] [id number] [address] [place] [address] Nov, Type 2 diabetes mellitus wit h other specified complication E11.69 ; Pre-ulcerative calluses L84 ; HTN (hypertension) I10 ; Hypercholesterolemia E78.0 ; Anxiety F41.9 ; Depression F32.9 ; Environmental allergies Z91.09 and Osteoarthritis M19.90 [facility] [address] [address] Sep, [facility] [address] [address] Aug, Allergic rhinitis, seasonal J30.2 [facility] [address] [address] Jul, [place] [address] [address] Jul, Other specified cardiac dysr hythmias 427.89 ; Essential hypertension, benign 401.1 ; Nondependent tobacco use disorder 305.1 ; Unspecified hereditary and idiopathic peripheral neuropathy 356.9 ; Diabetes mellitus without mention of complication, type II or unspecified type, not stated as uncontrolled 250.00 ; CAD (coronary artery disease) 414.00 ; Insomnia 780.52 and Depression 311 [place] [address] [address] Jul, [facility] [address] [address] Jul, [place] [address] [address] May, [facility] [address] [address] May, [facility] [address] [address] May, [facility] [address] [address] Apr, [facility] [address] [address] Apr, Skin lesion of face 709.9 an d Anxiety 300.00 [facility] [address] [id number] [address] [place] [address], [place] [address] March, [facility] [address] [id number] [address] [place] [address] Feb, [facility] [address] [id number] [address] [place] [address] Feb, [facility] [address] [id number] [address] [place] [address] Jan, [facility] [address] [id number] [address] [place] [address], [place] [address] Jan, [facility] [address] [id number] [address] [place] [address] Jan, [facility] [address] [id number] [address] [place] [address] Jan, [facility] [address] [id number] [address] [place] [address] Jan, [facility] [address] [id number] [address] [place] [address] Jan, [facility] [address] [id number] [address] [place] [address] Dec, [facility] [address] [id number] [address] [place] [address] Dec, [facility] [address] [id number] [address] [place] [address] Nov, [facility] [address] [id number] [address] [place] [address] Nov, [facility] [address] [id number] [address] [place] [address] Oct, [facility] [address] [id number] [address] [place] [address] Oct, [facility] [address] [id number] [address] [place] [address], [place] [address] Oct, [facility] [address] [id number] [address] [place] [address], [place] [address] Oct, [facility] [address] [id number] [address] [place] [address], [place] [address] Sep, [facility] [address] [id number] [address] [place] [address], [place] [address] Sep, [facility] [address] [id number] [address] [place] [address], [place] [address] Sep, [facility] [address] [id number] [address] [place] [address], [place] [address] Sep, [facility] [address] [id number] [address] [place] [address], [place] [address] Sep, [facility] [address] [id number] [address] [place] [address], [place] [address] Sep, [facility] [address] [id number] [address] [place] [address], [place] [address] Aug, [facility] [address] [id number] [address] [place] [address], [place] [address] Aug, [facility] [address] [id number] [address] [place] [address], [place] [address] Aug, [facility] [address] [id number] [address] [place] [address], [place] [address] Aug, [facility] [address] [id number] [address] [place] [address], [place] [address] Aug, [facility] [address] [id number] [address] [place] [address], [place] [address] Aug, [facility] [address] [id number] [address] [place] [address], [place] [address] Aug, [facility] [address] [id number] [address] [place] [address], [place] [address] Aug, [facility] [address] [id number] [address] [place] [address], [place] [address] Aug, [facility] [address] [id number] [address] [place] [address], [place] [address] Aug, [facility] [address] [id number] [address] [place] [address], [place] [address] Jul, [facility] [address] [id number] [address] [place] [address], [place] [address] Jul, [facility] [address] [id number] [address] [place] [address], [place] [address] May, [facility] [address] [id number] [address] [place] [address], [place] [address] May, [facility] [address] [id number] [address] [place] [address], [place] [address] May, [facility] [address] [id number] [address] [place] [address], [place] [address] May, [facility] [address] [id number] [address] [place] [address], [place] [address] May, [facility] [address] [id number] [address] [place] [address], [place] [address] May, [facility] [address] [id number] [address] [place] [address], [place] [address] Apr, [facility] [address] [id number] [address] [place] [address], [place] [address] Apr, [facility] [address] [id number] [address] [place] [address], [place] [address] Apr, [facility] [address] [id number] [address] [place] [address], [place] [address] Apr, [facility] [address] [id number] [address] [place] [address], [place] [address] March, [facility] [address] [id number] [address] [place] [address], [place] [address] March, [facility] [address] [id number] [address] [place] [address], [place] [address] Feb, [facility] [address] [id number] [address] [place] [address], [place] [address] Feb, [facility] [address] [id number] [address] [place] [address], [place] [address] Jan, [facility] [address] [id number] [address] [place] [address], [place] [address] Jan, [facility] [address] [id number] [address] [place] [address], [place] [address] Nov, [facility] [address] [id number] [address] [place] [address], [place] [address] Nov, [facility] [address] [id number] [address] [place] [address], [place] [address] Nov, [facility] [address] [id number] [address] [place] [address], [place] [address] Nov, [facility] [address] [id number] [address] [place] [address], [place] [address] Nov, [facility] [address] [id number] [address] [place] [address], [place] [address] Nov, [facility] [address] [id number] [address] [place] [address], [place] [address] Oct, [facility] [address] [id number] [address] [place] [address], [place] [address] Oct, [facility] [address] [id number] [address] [place] [address], [place] [address] Aug, [facility] [address] [id number] [address] [place] [address], [place] [address] Aug, [facility] [address] [id number] [address] [place] [address], [place] [address] Jul, [facility] [address] [id number] [address] [place] [address] Jun, [facility] [address] [id number] [address] [place] [address] Jun, [facility] [address] [id number] [address] [place] [address] Jun, [facility] [address] [id number] [address] [place] [address] Jun, [facility] [address] [id number] [address] [place] [address] Jun, [facility] [address] [id number] [address] [place] [address] Jun, [facility] [address] [id number] [address] [place] [address] May, [facility] [address] [id number] [address] [place] [address] March, [facility] [address] [id number] [address] [place] [address] March, [facility] [address] [id number] [address] [place] [address] Jan, IMMUNIZATIONS No Known Immunizations SOCIAL HISTORY Never Assessed REASON FOR VISIT leg pain x 3 -4 weeks -- jd hercules PLAN OF CARE Activity Details Follow Up prn Reason: VITAL SIGNS Height 66 in 2017-10-03 Weight 175.0 lbs 2017-10-03 Temperature 98.0 degrees Fahrenheit 2017-10-03 Heart Rate 78 bpm 2017-10-03 Respiratory Rate 22 2017-10-03 BMI 28.24 kg/m2 2017-10-03 Blood pressure systolic 130 mmHg 2017-10-03 Blood pressure diastolic 72 mmHg 2017-10-03 MEDICATIONS Medication Instructions Dosage Frequency Start Date End Date Duration S tatus Depakote 500 mg Orally 3 times a day 1 tablet 8h 22 Aug, 2014 Active Abilify 15 mg Orally Once a day 1 tablet 24h Aug, 30 day(s) Active Gabapentin 300 MG Orally 3 times a day 1 capsule 8h 30 Active Lisinopril 20 mg Orally Once a day TAKE 1 TABLET BY MOUTH DAILY 24h 90 days Active Baclofen 10 mg Orally Three times a day 1 tablet with food or milk 8h 25 May, 2017 Dec, 30 day(s) Active Carvedilol 6.25 MG Orally 2 times a day TAKE 1 TABLET BY MOUTH TWIC E DAILY 12h 90 days Active MetFORMIN HCl ER 500 mg Orally twice a day 1 tablet twice daily wit h food 12h 30 Aug, 2017 30 day(s) Active Ultram 50 mg Orally 3 times a day 1 tablet as needed 8h 28 Active Zocor 40 MG 1 tablet in the evening Once a day Orally 30 Active Mobic 7.5 MG Orally twice a day 1 tablet 12h 30 days Active Sinemet 10-100 mg Orally Three times a day 1 tablet 8h 08 Apr, 2017 90 days Active Simvastatin 40 mg Orally Once a day TAKE 1 TABLET BY MOUTH EVERY EVEN ING 24h 90 days Active ProAir HFA 108 (90 Base) MCG/ACT Inhalation every 4 hrs 2 puffs as needed 4h 19 Jul, 2017 7 days Active RESULTS Name Result Date Reference Range MRI : Lumbar w/o contrast 2017-10-06 PROCEDURES Procedure Date Ordered Result Body Site [facility] VISIT ESTABLISHED PATIENT Oct 03, 2017 INSTRUCTIONS MEDICATIONS ADMINISTERED No Known Medications [...]
--- OUTSIDE RECORDS SUMMARY | 2020-03-23 01:04 | XMS REPORT ---
Author Author Zoran PAREKH Organization [facility] Address [address] [place] [address] Care Team Providers Care Pediatric Care Coordinator Name Role Phone IGLESIAANAYAN Unavailable PROBLEMS Type Condition ICD9-CM Code YUR50-IP Code Onset Dates Condition S tatus SNOMED Code Problem Coronary atherosclerosis due to lipid rich plaque I25.83 Active [id number] Problem Other chronic pain G89.29 Active 8 4392679 Problem Atherosclerotic heart diseas e of [place] coronary artery without angina pectoris I25.10 Active 877700778 Problem Acute right-sided low back pain with right-sided sciatica M54.41 Active 869561330 Problem Lumbar spondylosis M47.816 Active 2 18728628 Problem Parkinsons disease G20 Active 4 2342071 Problem Cervical stenosis of spine M48.02 Act cynthia 62043577 Problem 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 Active 087885250 Problem Hypercholesterolemia E78.0 Active 61393439 Problem Pure hypercholesterolemia E78.00 Acti ve 515984035 Problem Depression F32.9 Active 56656739 Problem Pre-ulcerative calluses L84 Active 22284206 Problem Type 2 diabetes mellitus with other specified complication E11.69 Active 2669032 Problem Anxiety F41.9 Active 46667931 Problem HTN (hypertension) I10 Active 3 4021114 Problem Cervicalgia M54.2 Active 80117090 [id number] ALLERGIES No Information ENCOUNTERS Encounter Location Date Diagnosis [facility] [address] [facility] [id number] [address] [place] [address] Apr, [facility] [address] [facility] [id number] [address] [place] [address] Apr, Type 2 diabetes mellitus wit h other specified complication E11.69 ; HTN (hypertension) I10 and Parkinsons disease G20 [facility] [address] [facility] [id number] [address] [place] [address] Apr, [facility] [address] [id number] [address] [place] [address] Apr, [facility] [address] [id number] [address] [place] [address] Feb, Cervicalgia M54.2 [facility] [address] [facility] [id number] [address] [place] [address] Feb, Cervical stenosis of spine M 48.02 [facility] [address] [id number] [address] [place] [address] Jan, Cervicalgia M54.2 [facility] [address] [facility] [id number] [address] [place] [address] Jan, Acute right-sided low back p ain with right-sided sciatica M54.41 [facility] [address] [facility] [id number] [address] [place] [address] Dec, Cervicalgia M54.2 [facility] [address] [facility] [id number] [address] [place] [address] Dec, Controlled substance agreeme nt signed Z79.899 [facility] [address] [facility] [id number] [address] [place] [address] Oct, Cervicalgia M54.2 [facility] [address] [facility] [id number] [address] [place] [address] Oct, Acute right-sided low back p ain with right-sided sciatica M54.41 [facility] [address] [id number] [address] [place] [address] Oct, [facility] [address] [facility] [id number] [address] [place] [address] Sep, Cervicalgia M54.2 [facility] [address] [facility] [id number] [address] [place] [address] 14 Sep, 2017 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 [facility] [address] [facility] [id number] [address] [place] [address] 13 Sep, 2017 Lumbar back pain with radicu lopathy affecting right lower extremity M54.17 [place] [address] [facility] [id number] [address] [place] [address] 03 Sep, 2017 Acute right-sided low back p ain with right-sided sciatica M54.41 [place] [address] [facility] [id number] [address] [place] [address] Aug, Type 2 diabetes mellitus wit h other specified complication E11.69 ; HTN (hypertension) I10 ; Cervicalgia M54.2 ; Cervical stenosis of spine M48.02 ; Acute right hip pain M25.551 ; Atherosclerotic heart disease of [place] coronary artery without angina pectoris I25.10 ; Hypercholesterolemia E78.0 ; Parkinsons disease G20 and Depression F32.9 [place] [address] [facility] [id number] [address] [place] [address] Aug, Other chronic pain G89.29 [place] [address] [facility] [id number] [address] [place] [address] Jul, Other chronic pain G89.29 [place] [address] [facility] [id number] [address] [place] [address] Jul, [facility] [address] [facility] [id number] [address] [place] [address] Jul, Cough R05 and Bronchitis J40 [place] [address] [facility] [id number] [address] [place] [address] Jun, Other chronic pain G89.29 [place] [address] [facility] [id number] [address] [place] [address] Jun, [place] [address] [place] [id number] [address] [place] [address] Jun, Atherosclerotic heart diseas e of [place] coronary artery without angina pectoris I25.10 and Cervicalgia M54.2 [place] [address] [facility] [id number] [address] [place] [address] Jun, Cervicalgia M54.2 [facility] [address] [id number] [address] [place] [address] May, Other chronic pain G89.29 [facility] [address] [id number] [address] [place] [address] May, [facility] [address] [id number] [address] [place] [address] May, [facility] [address] [id number] [address] [place] [address] May, [facility] [address] [id number] [address] [place] [address] May, [facility] [address] [facility] [id number] [address] [place] [address] May, Type 2 diabetes mellitus wit h other specified complication E11.69 ; HTN (hypertension) I10 ; Atherosclerotic heart disease of [place] coronary artery without angina pectoris I25.10 ; Parkinsons disease G20 and Cervical stenosis of spine M48.02 [facility] [address] [id number] [address] [place] [address] Apr, Cervicalgia M54.2 [facility] [address] [id number] [address] [place] [address] Apr, Type 2 diabetes mellitus wit h other specified complication E11.69 ; HTN (hypertension) I10 ; Depression F32.9 ; Atherosclerotic heart disease of [place] coronary artery without angina pectoris I25.10 ; Coronary atherosclerosis due to lipid rich plaque I25.83 ; Cervicalgia M54.2 ; Parkinsons disease G20 ; Chronic diarrhea K52.9 and Pure hypercholesterolemia E78.00 [facility] [address] [id number] [address] [place] [address] March, Other chronic pain G89.29 [facility] [address] [facility] [id number] [address] [place] [address] March, Other chronic pain G89.29 [facility] [address] [facility] [id number] [address] [place] [address] Feb, Cervical stenosis of spine M 48.02 [facility] [address] [facility] [id number] [address] [place] [address] Feb, Other chronic pain G89.29 [facility] [address] [facility] [id number] [address] [place] [address] Jan, [facility] [address] [facility] [id number] [address] [place] [address] Jan, Other chronic pain G89.29 [facility] [address] [facility] [id number] [address] [place] [address] Jan, Other chronic pain G89.29 [facility] [address] [facility] [id number] [address] [place] [address] Jan, Type 2 diabetes mellitus wit h other specified complication E11.69 ; Atherosclerotic heart disease of [place] coronary artery without angina pectoris I25.10 ; Anxiety F41.9 ; HTN (hypertension) I10 ; Depression F32.9 ; Coronary atherosclerosis due to lipid rich plaque I25.83 ; Cervicalgia M54.2 ; Other chronic pain G89.29 and Functional 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 [facility] [address] [place] [id number] [address] [place] [address] Nov, HTN (hypertension) I10 [facility] [address] [place] [id number] [address] [place] [address] Nov, Type 2 diabetes mellitus wit h other specified complication E11.69 ; Atherosclerotic heart disease of [place] coronary artery without angina pectoris I25.10 ; Hypercholesterolemia E78.0 ; Anxiety F41.9 ; Depression F32.9 ; Cervicalgia M54.2 and Functional 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 [facility] [address] [facility] [id number] [address] [place] [address] Oct, [facility] [address] [facility] [id number] [address] [place] [address] Oct, Neck pain M54.2 [facility] [address] [id number] [address] [place] [address] Sep, [facility] [address] [id number] [address] [place] [address] Aug, [facility] [address] [id number] [address] [place] [address] Aug, [facility] [address] [id number] [address] [place] [address] Jul, Screening for tuberculosis Z 11.1 and Visit for TB skin test Z11.1 [facility] [address] [id number] [address] [place] [address] May, [facility] [address] [id number] [address] [place] [address] May, Neck pain M54.2 [facility] [address] [id number] [address] [place] [address] May, [facility] [address] [id number] [address] [place] [address] Apr, Neck pain M54.2 [facility] [address] [id number] [address] [place] [address] Feb, Neck pain M54.2 [facility] [address] [id number] [address] [place] [address] Feb, [facility] [address] [id number] [address] [place] [address] Jan, Neck pain M54.2 [facility] [address] [id number] [address] [place] [address] Jan, [facility] [address] [id number] [address] [place] [address] 16 Jan, 2016 Neck pain M54.2 [facility] [address] [id number] [address] [place] [address] 08 Jan, 2016 Neck pain M54.2 ; Type 2 sarath betes mellitus with other specified complication E11.69 ; CAD (coronary artery disease) 414.00 ; Insomnia 780.52 ; Anxiety F41.9 ; Depression F32.9 ; Pre-ulcerative calluses L84 and Hypercholesterolemia E78.0 [place] [address] [address] Nov, [address] [address] Nov, Type 2 diabetes mellitus wit h other specified complication E11.69 ; Pre-ulcerative calluses L84 ; HTN (hypertension) I10 ; Hypercholesterolemia E78.0 ; Anxiety F41.9 ; Depression F32.9 ; Environmental allergies Z91.09 and Osteoarthritis M19.90 [place] [address] [address] Sep, [address] [address] Aug, Allergic rhinitis, seasonal J30.[address] [address] Jul, [address] [address] Jul, Other specified cardiac dysr hythmias 427.89 ; Essential hypertension, benign 401.1 ; Nondependent tobacco use disorder 305.1 ; Unspecified hereditary and idiopathic peripheral neuropathy 356.9 ; Diabetes mellitus without mention of complication, type II or unspecified type, not stated as uncontrolled 250.00 ; CAD (coronary artery disease) 414.00 ; Insomnia 780.52 and Depression [address] [address] Jul, [address] [address] Jul, [place] [address] [address] May, [place] [id number] [place] [address] May, [facility] [address] [id number] [address] [place] [address] May, [facility] [address] [id number] [address] [place] [address] Apr, [facility] [address] [id number] [address] [place] [address] Apr, Skin lesion of face 709.9 an d Anxiety 300.00 [facility] [address] [id number] [address] [place] [address] March, [facility] [address] [id number] [address] [place] [address] Feb, [facility] [address] [id number] [address] [place] [address] Feb, [facility] [address] [id number] [address] [place] [address] Jan, [facility] [address] [id number] [address] [place] [address] Jan, [facility] [address] [id number] [address] [place] [address] Jan, [facility] [address] [id number] [address] [place] [address] Jan, [facility] [address] [id number] [address] [place] [address] Jan, [facility] [address] [id number] [address] [place] [address] Jan, [facility] [address] [id number] [address] [place] [address] Dec, [facility] [address] [id number] [address] [place] [address] Dec, [facility] [address] [id number] [address] [place] [address], [place] [address] Nov, [facility] [address] [id number] [address] [place] [address], [place] [address] Nov, [facility] [address] [id number] [address] [place] [address], [place] [address] Oct, [facility] [address] [id number] [address] [place] [address], [place] [address] Oct, [facility] [address] [id number] [address] [place] [address], [place] [address] Oct, [facility] [address] [id number] [address] [place] [address], [place] [address] Oct, [facility] [address] [id number] [address] [place] [address], [place] [address] Sep, [facility] [address] [id number] [address] [place] [address], [place] [address] Sep, [facility] [address] [id number] [address] [place] [address], [place] [address] Sep, [facility] [address] [id number] [address] [place] [address], [place] [address] Sep, [facility] [address] [id number] [address] [place] [address], [place] [address] Sep, [facility] [address] [id number] [address] [place] [address], [place] [address] Sep, [facility] [address] [id number] [address] [place] [address], [place] [address] Aug, [facility] [address] [id number] [address] [place] [address], [place] [address] Aug, [facility] [address] [id number] [address] [place] [address], [place] [address] Aug, [facility] [address] [id number] [address] [place] [address], [place] [address] Aug, [facility] [address] [id number] [address] [place] [address], [place] [address] Aug, [facility] [address] [id number] [address] [place] [address], [place] [address] Aug, [facility] [address] [id number] [address] [place] [address], [place] [address] Aug, [facility] [address] [id number] [address] [place] [address], [place] [address] Aug, [facility] [address] [id number] [address] [place] [address], [place] [address] Aug, [facility] [address] [id number] [address] [place] [address], [place] [address] Aug, [facility] [address] [id number] [address] [place] [address], [place] [address] Jul, [facility] [address] [id number] [address] [place] [address], [place] [address] Jul, [facility] [address] [id number] [address] [place] [address], [place] [address] May, [facility] [address] [id number] [address] [place] [address], [place] [address] May, [facility] [address] [id number] [address] [place] [address], [place] [address] May, [facility] [address] [id number] [address] [place] [address], [place] [address] May, [facility] [address] [id number] [address] [place] [address], [place] [address] May, [facility] [address] [id number] [address] [place] [address], [place] [address] May, [facility] [address] [id number] [address] [place] [address], [place] [address] Apr, [facility] [address] [id number] [address] [place] [address], [place] [address] Apr, [facility] [address] [id number] [address] [place] [address], [place] [address] Apr, [facility] [address] [id number] [address] [place] [address], [place] [address] Apr, [facility] [address] [id number] [address] [place] [address], [place] [address] March, [facility] [address] [id number] [address] [place] [address], [place] [address] March, [facility] [address] [id number] [address] [place] [address], [place] [address] Feb, [facility] [address] [id number] [address] [place] [address], [place] [address] Feb, [facility] [address] [id number] [address] [place] [address], [place] [address] Jan, [facility] [address] [id number] [address] [place] [address], [place] [address] Jan, [facility] [address] [id number] [address] [place] [address], [place] [address] Nov, [facility] [address] [id number] [address] [place] [address], [place] [address] Nov, [facility] [address] [id number] [address] [place] [address], [place] [address] Nov, [facility] [address] [id number] [address] [place] [address], [place] [address] Nov, [facility] [address] [id number] [address] [place] [address], [place] [address] Nov, [facility] [address] [id number] [address] [place] [address], [place] [address] Nov, [facility] [address] [id number] [address] [place] [address], [place] [address] Oct, [facility] [address] [id number] [address] [place] [address] Oct, [facility] [address] [id number] [address] [place] [address] Aug, [facility] [address] [id number] [address] [place] [address] Aug, [facility] [address] [id number] [address] [place] [id number] Jul, [facility] [address] [id number] [address] [place] [phone] Jun, [facility] [address] [id number] [address] [place] [id number] Jun, [facility] [address] [id number] [address] [place] [phone] Jun, [facility] [address] [id number] [address] [place] [phone] Jun, [facility] [address] [id number] [address] [place] [phone] Jun, [facility] [address] [id number] [address] [place] [phone] Jun, [facility] [address] [id number] [address] [place] [id number] May, [facility] [address] [id number] [address] [place] [id number] March, [facility] [address] [id number] [address] [place] [phone] March, [facility] [address] [id number] [address] [place] [id number] Jan, IMMUNIZATIONS No Known Immunizations SOCIAL HISTORY Never Assessed REASON FOR VISIT PT Evaluation PLAN OF CARE Activity Details Follow Up 3 Weeks Reason:F/U PT VITAL SIGNS MEDICATIONS Unknown Medications RESULTS No Results PROCEDURES Procedure Date Ordered Result Body Site THERAPEUTIC EXERCISES Oct 31, 2017 PT EVAL LOW COMPLEX 20 MIN Oct 31, 2017 INSTRUCTIONS MEDICATIONS ADMINISTERED No Known Medications [...]
[2020-03-23] MEDS ORDERED: SULF1TAB35 PO (03:00)
[2020-03-23] MEDS ORDERED: TRIM/SULFAMETH 160/800 (SEPTRA DS) TAB PO ONE (03:00)
[2020-03-23] MEDS ORDERED: DOXYCYCLINE 100 MG (VIBRAMYCIN) TABLET PO ONE (03:00)
[2020-03-23] MEDS ORDERED: DOXY100T2 PO (03:00)
--- NOTE | 2020-03-23 03:00 | ED General ---
General Chief Complaint: Skin/Wound Problems Stated Complaint: INFECTION ON BACK Nursing Triage Note: TO ED VIA POV AND AMBULATORY TO ED ROOM 7 WITH C/O "INFECTION IN BACK FOR A COUPLE OF DAYS". STATES LOWER BACK HURT FOR A FEW DAYS AND THEN "CYST POPPED" YESTERDAY. DRSG IN PLACE WITH GAUZE AND TAPE AT ARRIVAL TO ER. Nursing Sepsis Screen: No Definite Risk Source of Information: Patient Exam Limitations: No Limitations History of Present Illness Date Seen by Provider: March 23, 2020 Time Seen by Provider: 01:30 Initial Comments This 64-year-old gentleman presents to the emergency room with a draining wound on the lower back at the location of an old lumbar spinal surgery scar. This appears to likely be a laminectomy site which patient states was performed by Dr. Siegel at [address] a couple years ago. The surgical wound had previously healed well. He reports pain in this area for about the past 5 days. He noticed a draining about 2 days ago. He denies any fever. There is a copious amount of purulent material draining from a deep open wound. Patient has diabetes. Blood sugar is presently 128. Patient denied any bowel or bladder dysfunction or weakness or paresthesias in the legs. Allergies and Home Medications Allergies Coded Allergies: SURIANo Known Allergies (Verified Allergy, Unknown, 08/10/06) Home Medications Aripiprazole 15 Mg Tablet, 15 MG PO DAILY, (Reported) Baclofen 10 Mg Tablet, 10 MG PO TID, (Reported) Carbidopa/Levodopa 1 Each Tablet, 1 TAB PO TID, (Reported) Carvedilol 6.25 Mg Tablet, 6.25 MG PO BID, (Reported) Doxycycline Hyclate 100 Mg Tablet, 100 MG PO BID Prescribed by: BAIRON JIMENES on 03/23/20 0300 Escitalopram Oxalate 20 Mg Tablet, 20 MG PO DAILY, (Reported) Gabapentin 300 Mg Capsule, 300 MG PO TID, (Reported) Lisinopril 20 Mg Tablet, 20 MG PO DAILY, (Reported) Meloxicam 7.5 Mg Tablet, 7.5 MG PO BID, (Reported) Metformin HCl 500 Mg Tab.er.24h, 500 MG PO BID WITH MEALS, (Reported) Mirtazapine 45 Mg Tab.rapdis, 45 MG PO HS, (Reported) Simvastatin 40 Mg Tablet, 40 MG PO HS, (Reported) Sulfamethoxazole/Trimethoprim 1 Each Tablet, 1 EACH PO BID Prescribed by: BAIRON JIMENES on 03/23/20 0300 Patient Home Medication List Home Medication List Reviewed: Yes Review of Systems Review of Systems Constitutional: no symptoms reported EENTM: no symptoms reported Respiratory: no symptoms reported Cardiovascular: no symptoms reported Gastrointestinal: no symptoms reported Genitourinary: no symptoms reported Musculoskeletal: no symptoms reported Skin: see HPI Psychiatric/Neurological: No Symptoms Reported Hematologic/Lymphatic: No Symptoms Reported Immunological/Allergic: no symptoms reported Past Smzorks-Ngnbfn-Useyxj Hx Past Med/Social Hx: Reviewed Nursing Past Med/Soc Hx Patient Social History Alcohol Use: Rarely Uses Number of Drinks Today: AA Alcohol Beverage of Choice: Beer Recreational Drug Use: Yes Drug of Choice: MARIJUANA Type Used: Cigarettes Recent Foreign Travel: No Contact w/Someone Who Travel: No Recent Infectious Disease Expo: No Recent Hopitalizations: No Physical Abuse: No Sexual Abuse: No Mistreated: No Fear: No Immunizations Up To Date Tetanus Booster (TDap): Unknown Seasonal Allergies Seasonal Allergies: Yes Past Medical History Surgeries: Yes (LT KNEE; LITHOTRIPSY; RIGHT ORCHIECTOMY; COLONOSCOPY ) Appendectomy, Gallbladder, Orthopedic, Renal, Testicular Respiratory: Yes Cardiac: Yes Hypertension Neurological: Yes Parkinson's Disease Genitourinary: Yes Kidney Stones Gastrointestinal: Yes Chronic Diarrhea, Irritable Bowel Musculoskeletal: Yes (CHRONIC NECK PAIN ) Degenerate Disk Disease Endocrine: Yes Diabetes, Non-Insulin dep HEENT: No Cancer: Yes Testicular Did You Recieve Any Treatments: Yes What Type of Treatment Did You: Surgical Intervention Psychosocial: Yes Anxiety, PTSD, Suicide Attempts, Personality Disorder, Violent Behavior Integumentary: Yes (FOOT ULCER) Blood Disorders: No Family Medical History Patient reports no known family medical history. Heart Disease, CAD Over 55 Years Old, Diabetes, Hypertension Physical Exam Vital Signs Vital Signs - First Documented 03/23/20 03/23/20 00:54 03:05 Temp 36.7 Pulse 78 Resp 18 B/P (MAP) 146/79 (101) Pulse Ox 99 O2 Delivery Room Air Capillary Refill : Less Than 3 Seconds Height, Weight, BMI Height: 5'6.00" Weight: 157lbs. 5.0oz. 71.942765nm; 30.00 BMI Method:Stated General Appearance: No Apparent Distress, WD/WN HEENT: Normal ENT Inspection Neck: Normal Inspection Respiratory: Lungs Clear, Normal Breath Sounds, No Accessory Muscle Use Cardiovascular: Regular Rate, Rhythm, No Edema, No Murmur Back: Other (surgical scar over the lumbar spine with with open wound at the superior aspect and developing necrosis along the center of the scar. There is a deep cavitation surrounding at least 2 cm deep full of purulent material.) Extremity: Normal Inspection Neurologic/Psychiatric: Alert, Oriented x3, No Motor/Sensory Deficits, Normal Mood/Affect, automatic engraver II-XII Norm as Tested Skin: Normal Color, Warm/Dry, Other (see above) Progress/Results/Core Measures Suspected Sepsis Recent Fever Within 48 Hours: No Infection Criteria Present: Suspected New Infection New/Unexplained Altered Menta: No Sepsis Screen: No Definite Risk SIRS Temperature: Pulse: 78 Respiratory Rate: 18 Blood Pressure 146 /79 Mean: 101 Results/Orders Lab Results Laboratory Tests Test 03/23/20 02:45 Range/Units Glucometer 128 H 70-110 MG/DL My Orders Orders - BAIRON GRAHAM MD Wound Culture (03/23/20 01:41) Ct Lumbar Spine Wo (03/23/20 01:42) Accucheck Stat ONCE (03/23/20 02:40) Sulfamethoxazole/Trimet Ds Tab (Bactrim (03/23/20 03:00) Doxycycline Hyclate Tablet (Vibramycin T (03/23/20 03:00) Medications Given in ED Current Medications Medications Dose Ordered Sig/Otoniel Route Start Time Stop Time Status Last Admin Dose Admin Doxycycline Hyclate 100 mg ONCE ONCE PO 03/23/20 03:00 03/23/20 03:01 DC 03/23/20 03:03 100 MG Trimethoprim/ Sulfamethoxazole 1 ea ONCE ONCE PO 03/23/20 03:00 03/23/20 03:01 DC 03/23/20 03:03 1 EA Vital Signs/I&O 03/23/20 03/23/20 00:54 03:05 Temp 36.7 36.7 Pulse 78 72 Resp 18 16 B/P (MAP) 146/79 (101) 142/76 (101) Pulse Ox 99 O2 Delivery Room Air Room Air Capillary Refill : Less Than 3 Seconds Blood Pressure Mean: 101 Point of Care Testing Finger Stick Blood Glucose: 128 Blood Glucose Action Taken: DR. GRAHAM NOTIFIED Progress Note : Progress Note CT was obtained to ensure there was no infectious involvement of the underlying bony spine. Abscess cavitation is deep into the soft tissues but does not appear to be causing any bony destruction. Patient was started on Bactrim and doxycycline. Culture was obtained. He is being referred to wound care. Vital signs are normal with no signs of sepsis. Diagnostic Imaging Diagonstic Imaging: CT Plain Films/CT/US/NM/MRI: other (lumbar spine) Comments [facility] report reviewed and images viewed. Report states the followin. Gas collection in the subcutaneous soft tissues of the lower back with surrounding soft tissue thickening. No fluid within the collection. 2. Status post L5-S1 right hemilaminectomy. Soft tissue thickening in the r egion of the posterior elements at the level of L4-L5, likely granulation tissue. Departure Impression Primary Impression: Abscess Disposition: 01 HOME, SELF-CARE Condition: Stable Departure-Patient Inst. Decision time for Depature: 02:57 Referrals: [facility] (PCP) Primary Care Physician BUNNY MORRIS (Family) Primary Care Physician Patient Instructions: Skin Abscess Add. Discharge Instructions: Keep the wound covered with absorbent dressing to prevent spreading the drainage. Follow-up with your primary care provider. Wound care as soon as possible. Call wound care on Tuesday morning for an appointment. Their number is [phone]. Start your antibiotics this afternoon and complete the entire course as prescribed. Return to the emergency room if you have worsening symptoms or develop new symptoms such as fever. All discharge instructions reviewed with patient and/or family. Voiced understanding. Scripts Doxycycline Hyclate (Doxycycline Hyclate) 100 Mg Tablet 100 MG PO BID, #20 TAB 0 Refills Prov: BAIRON GRAHAM MD 03/23/20 Sulfamethoxazole/Trimethoprim (Bactrim Ds Tablet) 1 Each Tablet 1 EACH PO BID, #20 TAB Prov: BAIRON GRAHAM MD 03/23/20 Copy Copies To 1: RODOLFO SAHNI DO Copies To 2: ASHLEY RODRIGUEZ MD, JOSHUA T MD March 23, 2020 03:00
[2020-03-23 03:05] VITALS: BP 142/76
--- NOTE | 2020-03-23 06:23 | Diagnostic Imaging Report ---
PROCEDURE: CT lumbar spine without contrast. TECHNIQUE: Multiple contiguous axial images were obtained through the lumbar spine without the use of intravenous contrast. Sagittal and coronal reformations were then performed. Auto Exposure Controls were utilized during the CT exam to meet ALARA standards for radiation dose reduction. Indication: Low back pain for several days. Comparison: None. Discussion: 2.6 x 1.1 x 1.4 cm gas collection within the posterior superficial soft tissues of the lumbar spine at the level of L3. There is significant surrounding soft tissue thickening. No air-fluid level identified. Etiology is indeterminate. Nonobstructing right renal calculi. The gallbladder surgically absent. Atherosclerotic plaques noted throughout the aorta. Mild constipation. No ascites. Bilateral L5 pars defect. Minimal anterolisthesis of L5 on S1. Postoperative changes of right L5 hemilaminectomy. Advanced facet arthropathy is noted diffusely. Moderate degenerative disc disease is present diffusely. Impression: 1. Nonspecific superficial gas collection within the posterior soft tissues of the lumbar spine at the level of L3. There is surrounding soft tissue thickening or inflammation. No air-fluid level. 2. Chronic changes of the lumbar spine as described. No acute osseous abnormality. 3. Agree with preliminary report. Dictated by: Dictated on workstation # [id number]
== END 2020-03-23 03:06 | disposition home or self-care (01) ==
LOC: EDUNIT# 00:45 → ER 00:46
DX: L02.212 Cutaneous abscess of back [any part, except buttock and flank] (principal); I10 Essential (primary) hypertension; E11.9 Type 2 diabetes mellitus without complications; F41.9 Anxiety disorder, unspecified; Z79.84 Long term (current) use of oral hypoglycemic drugs
CPT/HCPCS: 72131; 82962; 87070; 87077; 87186; 87205

== ENCOUNTER → 2020-03-24 | Outpatient (CLI) | payer MEDICARE ==
[~2020-03-24] MED LIST changes: +DOXY100T2 PO; +SULF1TAB35 PO
== END ==
LOC: WOUNDCARE 08:30
PROVIDERS: ATTEND Surgery
DX: E11.622 Type 2 diabetes mellitus with other skin ulcer (principal); L98.492 Non-pressure chronic ulcer of skin of other sites with fat layer exposed; L02.818 Cutaneous abscess of other sites; T81.32XA Disruption of internal operation (surgical) wound, not elsewhere classified, initial encounter; F17.200 Nicotine dependence, unspecified, uncomplicated; I10 Essential (primary) hypertension
CPT/HCPCS: 99213

== ENCOUNTER 2020-03-25 14:52 | Outpatient (CLI) | payer MEDICARE ==
[2020-03-25 14:55] VITALS: BP 126/56
== END 2020-03-25 15:50 | disposition home or self-care (01) ==
LOC: SDC 14:52
PROVIDERS: ATTEND Thoracic Surgery (Cardiothoracic Vascular Surgery)
DX: Z48.817 Encounter for surgical aftercare following surgery on the skin and subcutaneous tissue (principal)

== ENCOUNTER → 2020-03-29 | Outpatient (CLI) | payer MEDICARE | LOC: LAB 03:49 → LABNPT 03:49 → EDSTATUS 04-02 13:13 | PROVIDERS: ATTEND Thoracic Surgery (Cardiothoracic Vascular Surgery) | DX: Z01.89 Encounter for other specified special examinations (principal) | CPT/HCPCS: 36415; 80202 ==

== ENCOUNTER → 2020-10-28 | Emergency (ER) | payer MEDICARE, MEDICAID ==
[~2020-10-28] VITALS: Ht 162.5 cm; Wt 83.3 kg
[~2020-10-28] MED LIST changes: +ASPIRIN 81 MG CHEW (CHILDREN'S ASA) PO ONE; -CARB1TAB17 PO; +CARB1TAB30 PO; +LORA-404 PO; +LORazepam INJ 2 MG/ML (ATIVAN) VIAL IVP PRN; +METF-865 PO; -METF500T19 PO; -RISP4TAB2 PO; +RISP4TAB73 PO
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
[2020-10-28 13:13] LABS: BASOPHILS # (AUTO) 0.1 10^3/uL (0.0-0.1); BASOPHILS % (AUTO) 1 % (0-10); EOSINOPHILS # (AUTO) 0.2 10^3/uL (0.0-0.3); EOSINOPHILS % (AUTO) 2 % (0-10); HEMATOCRIT 45 % (40-54); LYMPHOCYTES # (AUTO) 2.4 10^3/uL (1.0-4.0); LYMPHOCYTES % (AUTO) 24 % (12-44); MEAN CORPUSCULAR HEMOGLOBIN 28 pg (25-34); MEAN CORPUSCULAR HGB CONC 34 g/dL (32-36); MEAN CORPUSCULAR VOLUME 84 fL (80-99); MEAN PLATELET VOLUME 10.2 fL (9.0-12.2); MONOCYTES % (AUTO) 10 % (0-12); NEUTROPHILS # (AUTO) 6.2 10^3/uL (1.8-7.8); NEUTROPHILS % (AUTO) 62 % (42-75); PLATELET COUNT 300 10^3/uL (130-400)
[2020-10-28 13:25] LABS: PROTHROMBIN TIME PATIENT 13.4 SEC (12.2-14.7)
[2020-10-28 13:26] LABS: ALBUMIN 4.5 GM/DL (3.2-4.5); CHLORIDE 99 MMOL/L (98-107); POTASSIUM 4.3 MMOL/L (3.6-5.0); SODIUM 135 MMOL/L (135-145)
[2020-10-28 13:27] LABS: CALCIUM 8.6 MG/DL (8.5-10.1)
[2020-10-28 13:28] LABS: GLUCOSE 109 MG/DL (70-105)
[2020-10-28 13:29] LABS: TOTAL PROTEIN 7.2 GM/DL (6.4-8.2)
[2020-10-28 13:30] LABS: BILIRUBIN,TOTAL 0.8 MG/DL (0.1-1.0); CARBON DIOXIDE 25 MMOL/L (21-32)
[2020-10-28 13:32] LABS: ALKALINE PHOSPHATASE 109 U/L (40-136); CREATININE SERUM 0.85 MG/DL (0.60-1.30); GFR ESTIMATED > 60
[2020-10-28 13:33] LABS: BUN/CREATININE RATIO 14
[2020-10-28 13:35] LABS: ALANINE AMINOTRANSFERASE 10 U/L (0-55)
[2020-10-28 13:36] LABS: MAGNESIUM 2.2 MG/DL (1.6-2.4)
[2020-10-28 13:37] LABS: LIPASE 21 U/L (8-78)
--- NOTE | 2020-10-28 14:01 | Diagnostic Imaging Report ---
INDICATION: Chest pain and shortness of breath. Frontal chest obtained at 01:58 p.m. and compared to 05/05/2018. Heart and mediastinal silhouette are normal in appearance. The lungs appear clear. There is no pneumothorax or pleural fluid. IMPRESSION: No acute process in the chest. Dictated by: Dictated on workstation # [id number]
--- NOTE | 2020-10-28 14:33 | NUR ---
PATIENT REPORTS THAT HE IS FEELING BETTER
--- NOTE | 2020-10-28 15:00 | NUR ---
2ND TROPONIN DRAWN
--- NOTE | 2020-10-28 15:56 | NUR ---
LIZZ CALLED AND TALKED WITH HIS ANIMAL KEEPER
--- NOTE | 2020-10-28 15:58 | NUR ---
BLACK SLEEPING MONITOR .
--- NOTE | 2020-10-28 16:06 | NUR ---
CALLED AND TALKED WITH VIJAY GARCIA INFORMED HER THAT HAD A RX AT [facility] AND THAT [facility] INFORMED THAT WOULD BEING DOING CHECKS ON HIM
[2020-10-28 16:19] VITALS: BP 167/44
== END ==
LOC: EDUNIT# 12:46 → ER 12:48
DX: F41.9 Anxiety disorder, unspecified (principal); R07.9 Chest pain, unspecified; I10 Essential (primary) hypertension; E11.9 Type 2 diabetes mellitus without complications; G20 Parkinson's disease; Z82.49 Family history of ischemic heart disease and other diseases of the circulatory system; Z83.3 Family history of diabetes mellitus; Z85.47 Personal history of malignant neoplasm of testis; Z79.84 Long term (current) use of oral hypoglycemic drugs
CPT/HCPCS: 36415; 71045; 80053; 83690; 83735; 83874; 83880; 84484; 85025; 85610; 85730; 93005; 93041

== ENCOUNTER 2020-12-26 16:23 | Emergency (ER) | payer MEDICARE, MEDICAID ==
[~2020-12-26] VITALS: Ht 162.5 cm; Wt 79.8 kg
[~2020-12-26 16:23] MED LIST changes: -ASPIRIN 81 MG CHEW (CHILDREN'S ASA) PO ONE; -ESCI20TA45 PO; +ESCI20TA56 PO; -LORazepam INJ 2 MG/ML (ATIVAN) VIAL IVP PRN
--- NOTE | 2020-12-26 16:31 | ED General ---
General Chief Complaint: Exposure Stated Complaint: CONGESTION,EXPOSED TO BLACK MOLD History of Present Illness Date Seen by Provider: Dec 26, 2020 Time Seen by Provider: 16:31 Initial Comments 65-year-old male presents with congestion, goopy eyes when he wakes in the morning, scratchy throat, some occasional diarrhea. Symptoms have been going on for 10 to 14 days. Patient believes it is because from mold exposure in his home. Patient was tested for Covid 7 days ago and was negative. Does not have any fever, cough, shortness of breath. Patient was started on a medication but cannot remember what it was for this. This medication was about a week ago. He is still having some minor symptoms. Allergies and Home Medications Allergies Coded Allergies: SURIANo Known Allergies (Verified Allergy, Unknown, 08/10/06) Home Medications Aripiprazole 15 Mg Tablet, 15 MG PO DAILY, (Reported) Baclofen 10 Mg Tablet, 10 MG PO TID, (Reported) Carbidopa/Levodopa 1 Each Tablet, 1 TAB PO TID, (Reported) Carvedilol 6.25 Mg Tablet, 6.25 MG PO BID, (Reported) Doxycycline Hyclate 100 Mg Tablet, 100 MG PO BID Prescribed by: BAIRON JIMENES on 03/23/20 030 Escitalopram Oxalate 20 Mg Tablet, 20 MG PO DAILY, (Reported) Gabapentin 300 Mg Capsule, 300 MG PO TID, (Reported) Lisinopril 20 Mg Tablet, 20 MG PO DAILY, (Reported) Lorazepam 0.5 Mg Tablet, 0.5 MG PO BID PRN for ANXIETY Prescribed by: LIZZ KIRAN on 10/28/20 1555 Meloxicam 7.5 Mg Tablet, 7.5 MG PO BID, (Reported) Metformin HCl 500 Mg Tab.er.24h, 500 MG PO BID WITH MEALS, (Reported) Mirtazapine 45 Mg Tab.rapdis, 45 MG PO HS, (Reported) Simvastatin 40 Mg Tablet, 40 MG PO HS, (Reported) Sulfamethoxazole/Trimethoprim 1 Each Tablet, 1 EACH PO BID Prescribed by: BAIRON JIMENES on 03/23/20 0300 Patient Home Medication List Home Medication List Reviewed: Yes Review of Systems Review of Systems Constitutional: No chills, No fever EENTM: see HPI Respiratory: No cough, No short of breath Cardiovascular: No chest pain, No palpitations Skin: no symptoms reported Psychiatric/Neurological: No Symptoms Reported Hematologic/Lymphatic: No Symptoms Reported Immunological/Allergic: no symptoms reported Past Keonvkb-Znxhec-Hjcrnu Hx Past Med/Social Hx: Reviewed Nursing Past Med/Soc Hx Patient Social History Alcohol Beverage of Choice: Beer Drug of Choice: MARIJUANA Type Used: Cigarettes Recent Hopitalizations: No Immunizations Up To Date Tetanus Booster (TDap): Unknown Seasonal Allergies Seasonal Allergies: Yes Past Medical History Surgeries: Yes (LT KNEE; LITHOTRIPSY; RIGHT ORCHIECTOMY; COLONOSCOPY ) Appendectomy, Gallbladder, Orthopedic, Renal, Testicular Respiratory: Yes Cardiac: Yes Hypertension Neurological: Yes Parkinson's Disease Genitourinary: Yes Kidney Stones Gastrointestinal: Yes Chronic Diarrhea, Irritable Bowel Musculoskeletal: Yes (CHRONIC NECK PAIN ) Degenerate Disk Disease Endocrine: Yes Diabetes, Non-Insulin dep HEENT: No Cancer: Yes Testicular Did You Recieve Any Treatments: Yes What Type of Treatment Did You: Surgical Intervention Psychosocial: Yes Anxiety, PTSD, Suicide Attempts, Personality Disorder, Violent Behavior Integumentary: Yes (FOOT ULCER) Blood Disorders: No Family Medical History Patient reports no known family medical history. Heart Disease, CAD Over 55 Years Old, Diabetes, Hypertension Physical Exam Vital Signs Capillary Refill : Height, Weight, BMI Height: 5'6.00" Weight: 157lbs. 5.0oz. 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 Patient with negative Covid testing since symptoms started. We will have him start Zyrtec or other antihistamine along with Flonase. If he develops fever, shortness of breath or worsening of symptoms he should go to his primary care provider. If symptoms are not improved in 10 to 14 days he should follow-up for recheck with her primary care. Departure Impression Primary Impression: Allergic rhinitis caused by mold Disposition: 01 HOME, SELF-CARE Condition: Stable Departure-Patient Inst. Referrals: [facility] (PCP) Primary Care Physician BUNNY MORRIS (Family) Primary Care Physician Patient Instructions: Controlling Dust and Allergens in Your Home, Allergy to Mold Add. Discharge Instructions: Zyrtec daily as directed on package or other antiallergy medication such as Claritin or Mojgan Flonase or similar nasal steroid as directed on package These are available at a local pharmacy department Follow-up with your primary care provider if symptoms are not improving in 10 to 14 days All discharge instructions reviewed with patient and/or family. Voiced understanding. MAURICE NICOLAS DO Dec 26, 2020 16:31
[2020-12-26 16:45] VITALS: BP 120/70
== END 2020-12-26 17:10 | disposition home or self-care (01) ==
LOC: EDUNIT# 16:23 → ER FS 16:24
DX: J30.89 Other allergic rhinitis (principal); I10 Essential (primary) hypertension; E11.9 Type 2 diabetes mellitus without complications; F41.9 Anxiety disorder, unspecified; G20 Parkinson's disease; Z85.47 Personal history of malignant neoplasm of testis; Z82.49 Family history of ischemic heart disease and other diseases of the circulatory system; Z83.3 Family history of diabetes mellitus; Z79.84 Long term (current) use of oral hypoglycemic drugs
CPT/HCPCS: 99282

== ENCOUNTER 2021-01-03 23:22 | Emergency (ER) | payer MEDICARE, MEDICAID ==
[~2021-01-03] VITALS: Ht 162 cm; Wt 79.0 kg
[~2021-01-03 23:22] MED LIST changes: +ESCI20TA39 PO; -ESCI20TA56 PO; -LISI-552 PO; +LISI20TA26 PO; +SERT-414 PO; -SERT100T8 PO
--- NOTE | 2021-01-04 00:14 | ED Fall/Injury ---
General Chief Complaint: Trauma-Non Activation Stated Complaint: BACK PAIN Nursing Triage Note: PT TO ED W/ C/O BILAT HIP PAIN AFTER SLIPPING ET FALLING ON ICE. DENIES LOC Source: patient (VERY LIMITED HISTORIAN), old records (ALL PMH IS FROM OLD CHART) History of Present Illness Date Seen by Provider: Jan 03, 2021 Time Seen by Provider: 23:38 Initial Comments PT ARRIVES VIA POV, AMBULATES IN ON HIS OWN STATES AROUND 1600 TODAY IN [place], HE SLIPPED AND FELL ON THE ICE, LANDING ON HIS BACK AND LEFT SIDE DID HIT HIS HEAD, DENIES LOSS OF CONSCIOUSNESS DENIES NECK PAIN C/O BACK PAIN AND BILATERAL HIP PAIN PT DENIES PARESTHESIAS OR MOTOR DEFICITS NO HEADACHE NO VISION CHANGES NO NAUSEA/VOMITING NO DIZZINESS NO CHEST PAIN NO SHORTNESS OF BREATH PT DOES NOT KNOW HIS MEDICATIONS, AND DOES NOT KNOW IF HE IS ON A BLOOD THINNER OR ASPIRIN--PER MED RECONCILIATION, PT HAS BEEN PRESCRIBED ASPIRIN 81 MG AND MELOXICAM. PT SEEN HERE 12/26/20 FOR COUGH/CONGESTION, SORE THROAT, DIARRHEA--NO TESTING DONE, RX ZYRTEC. PCP: [facility] Allergies and Home Medications Allergies Coded Allergies: NKANo Known Allergies (Verified Allergy, Unknown, 08/10/06) Home Medications Aripiprazole 15 Mg Tablet, 15 MG PO DAILY, (Reported) Baclofen 10 Mg Tablet, 10 MG PO TID, (Reported) Carbidopa/Levodopa 1 Each Tablet, 1 TAB PO TID, (Reported) Carvedilol 6.25 Mg Tablet, 6.25 MG PO BID, (Reported) Doxycycline Hyclate 100 Mg Tablet, 100 MG PO BID Prescribed by: BAIRON JIMENES on 03/23/20 0300 Escitalopram Oxalate 20 Mg Tablet, 20 MG PO DAILY, (Reported) Gabapentin 300 Mg Capsule, 300 MG PO TID, (Reported) Lisinopril 20 Mg Tablet, 20 MG PO DAILY, (Reported) Lorazepam 0.5 Mg Tablet, 0.5 MG PO BID PRN for ANXIETY Prescribed by: LIZZ KIRAN on 10/28/20 1555 Meloxicam 7.5 Mg Tablet, 7.5 MG PO BID, (Reported) Metformin HCl 500 Mg Tab.er.24h, 500 MG PO BID WITH MEALS, (Reported) Mirtazapine 45 Mg Tab.rapdis, 45 MG PO HS, (Reported) Simvastatin 40 Mg Tablet, 40 MG PO HS, (Reported) Sulfamethoxazole/Trimethoprim 1 Each Tablet, 1 EACH PO BID Prescribed by: BAIRON JIMENES on 03/23/20 0300 Patient Home Medication List Home Medication List Reviewed: Yes Review of Systems Review of Systems Constitutional: no symptoms reported Eyes: No Symptoms Reported Ears, Nose, Mouth, Throat: no symptoms reported Respiratory: no symptoms reported Cardiovascular: no symptoms reported Gastrointestinal: other (BRUISING TO LEFT FLANK AND LEFT ABDOMEN AREA) Musculoskeletal: see HPI, back pain, joint pain Skin: other (EXTENSIVE BRUISING TO LEFT LOWER BACK, LEFT FLANK, LEFT HIP AND MOST OF LEFT SIDE OF ABDOMEN) Psychiatric/Neurological: No Symptoms Reported; Denies Headache, Denies Numbness, Denies Paresthesia, Denies Tingling, Denies Weakness Past Hvmebxd-Fumyvz-Gkhdie Hx Past Med/Social Hx: Reviewed and Corrections made Patient Social History Alcohol Use: Regular Use Number of Drinks Today: AA Alcohol Beverage of Choice: Beer Drug of Choice: MARIJUANA Smoking Status: Current Everyday Smoker Type Used: Cigarettes 2nd Hand Smoke Exposure: No Recent Infectious Disease Expo: No Recent Hopitalizations: No Substance type: Methamphetamine, Marijuana Immunizations Up To Date Tetanus Booster (TDap): Unknown Seasonal Allergies Seasonal Allergies: Yes Past Medical History Surgeries: Yes (LT KNEE; LITHOTRIPSY; RIGHT ORCHIECTOMY; COLONOSCOPY ) Appendectomy, Gallbladder, Orthopedic, Renal, Testicular Respiratory: Yes COPD Cardiac: Yes Hypertension Neurological: Yes Parkinson's Disease Genitourinary: Yes Kidney Stones Gastrointestinal: Yes Chronic Diarrhea, Irritable Bowel Musculoskeletal: Yes (CHRONIC NECK PAIN ) Degenerate Disk Disease, Chronic Back Pain Endocrine: Yes Diabetes, Non-Insulin dep HEENT: No Cancer: Yes Testicular Did You Recieve Any Treatments: Yes What Type of Treatment Did You: Surgical Intervention Psychosocial: Yes Anxiety, PTSD, Suicide Attempts, Personality Disorder, Violent Behavior, Depression Integumentary: Yes (FOOT ULCER) Blood Disorders: No Family Medical History Patient reports no known family medical history. Heart Disease, CAD Over 55 Years Old, Diabetes, Hypertension SOCIAL HISTORY: -ETOH--REGULAR USE -DRUGS---REGULAR MARIJUANA USE, ALSO TESTED + FOR AMPHETAMINES/METHAMPHETAMINES IN PAST -SMOKES 1 1/2-2 PPD ADDITIONAL PAST SURGICAL HISTORY: -LUMBAR LAMINECTOMY L4-L5 AND L5-S1 Physical Exam Vital Signs Vital Signs - First Documented 01/03/21 23:30 Temp 36.9 Pulse 69 Resp 20 B/P (MAP) 148/69 (95) Pulse Ox 97 O2 Delivery Room Air Capillary Refill : Less Than 3 Seconds Height, Weight, BMI Height: 5'6.00" Weight: 157lbs. 5.0oz. 71.549130ou; 30.00 BMI Method:Stated General Appearance: WD/WN, no apparent distress, other (DIRTY, UNKEMPT. ) HEENT: PERRL/EOMI, other (EDENTULOUS) Neck: non-tender, full range of motion, supple, normal inspection Cardiovascular: regular rate, rhythm, no murmur Respiratory: chest non-tender, normal breath sounds, no respiratory distress, no accessory muscle use Gastrointestinal: normal bowel sounds, soft, tenderness (LEFT MID AND LOWER ABDOMINAL TENDERNESS. LEFT FLANK TENDERNESS), other (OBESE) Back: CVA tenderness (L), other (DIFFUSE LEFT LOWER BACK TENDERNESS AND BRUISING) Extremities: no pedal edema, normal capillary refill, other (BRUISING AND TE NDERNESS TO LEFT HIP AND GROIN. 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, no motor/sensory deficits, alert, normal mood/affect, oriented x 3 Skin: normal color, warm/dry, ecchymosis ( ABOVE), tattoos/piercings (MULTIPLE TATTOOS) Ene Coma Score Best Eye Response: (4) Open Spontaneously Best Verbal Response: (5) Oriented Best Motor Response: (6) Obeys Commands [place] Total: 15 Progress/Results/Core Measures Results/Orders Lab Results Laboratory Tests Test 01/04/21 00:02 01/04/21 01:31 Range/Units White Blood Count 10.2 4.3-11.0 10^3/uL Red Blood Count 4.53 4.30-5.52 10^6/uL Hemoglobin 13.0 L 13.3-17.7 g/dL Hematocrit 39 L 40-54 % Mean Corpuscular Volume 86 80-99 fL Mean Corpuscular Hemoglobin 29 25-34 pg Mean Corpuscular Hemoglobin Concent 33 32-36 g/dL Red Cell Distribution Width 13.5 10.0-14.5 % Platelet Count 241 130-400 10^3/uL Mean Platelet Volume 10.5 9.0-12.2 fL Immature Granulocyte % (Auto) 0 % Neutrophils (%) (Auto) 54 42-75 % Lymphocytes (%) (Auto) 30 12-44 % Monocytes (%) (Auto) 9 0-12 % Eosinophils (%) (Auto) 6 0-10 % Basophils (%) (Auto) 1 0-10 % Neutrophils # (Auto) 5.5 1.8-7.8 10^3/uL Lymphocytes # (Auto) 3.0 1.0-4.0 10^3/uL Monocytes # (Auto) 1.0 0.0-1.0 10^3/uL Eosinophils # (Auto) 0.6 H 0.0-0.3 10^3/uL Basophils # (Auto) 0.1 0.0-0.1 10^3/uL Immature Granulocyte # (Auto) 0.0 0.0-0.1 10^3/uL Prothrombin Time 12.6 12.2-14.7 SEC INR Comment 0.9 0.8-1.4 Activated Partial Thromboplast Time 29 24-35 SEC Sodium Level 144 135-145 MMOL/L Potassium Level 4.0 3.6-5.0 MMOL/L Chloride Level 104 98-107 MMOL/L Carbon Dioxide Level 26 21-32 MMOL/L Anion Gap 14 5-14 MMOL/L Blood Urea Nitrogen 24 H 7-18 MG/DL Creatinine 0.96 0.60-1.30 MG/DL Estimat Glomerular Filtration Rate > 60 BUN/Creatinine Ratio 25 Glucose Level 181 H 70-105 MG/DL Calcium Level 9.1 8.5-10.1 MG/DL Corrected Calcium 9.3 8.5-10.1 MG/DL Magnesium Level 1.7 1.6-2.4 MG/DL Total Bilirubin 0.4 0.1-1.0 MG/DL Aspartate Amino Transf (AST/SGOT) 8 5-34 U/L Alanine Aminotransferase (ALT/SGPT) 10 0-55 U/L Alkaline Phosphatase 98 40-136 U/L Total Creatine Kinase 109 30-200 U/L Creatine Kinase MB 4.8 <6.6 NG/ML Myoglobin 61.1 10.0-92.0 NG/ML Total Protein 6.8 6.4-8.2 GM/DL Albumin 3.8 3.2-4.5 GM/DL Amylase Level 57 25-125 U/L Lipase 40 8-78 U/L Serum Alcohol < 10 <10 MG/DL Coronavirus 2019 (CANDICE) Positive H Negative Urine Color YELLOW Urine Clarity CLEAR Urine pH 5.5 5-9 Urine Specific [place] 1.020 1.016-1.022 Urine Protein NEGATIVE NEGATIVE Urine Glucose (UA) TRACE H NEGATIVE Urine Ketones NEGATIVE NEGATIVE Urine Nitrite NEGATIVE NEGATIVE Urine Bilirubin NEGATIVE NEGATIVE Urine Urobilinogen 0.2 < = 1.0 MG/DL Urine Leukocyte Esterase NEGATIVE NEGATIVE Urine RBC (Auto) NEGATIVE NEGATIVE Urine RBC 2-5 H /HPF Urine WBC 2-5 /HPF Urine Squamous Epithelial Cells 0-2 /HPF Urine Crystals NONE /LPF Urine Bacteria NEGATIVE /HPF Urine Casts NONE /LPF Urine Mucus SMALL H /LPF Urine Culture Indicated NO Urine Opiates Screen NEGATIVE NEGATIVE Urine Oxycodone Screen NEGATIVE NEGATIVE Urine Methadone Screen NEGATIVE NEGATIVE Urine Propoxyphene Screen NEGATIVE NEGATIVE Urine Barbiturates Screen NEGATIVE NEGATIVE Ur Tricyclic Antidepressants Screen POSITIVE H NEGATIVE Urine Phencyclidine Screen NEGATIVE NEGATIVE Urine Amphetamines Screen NEGATIVE NEGATIVE Urine Methamphetamines Screen NEGATIVE NEGATIVE Urine Benzodiazepines Screen NEGATIVE NEGATIVE Urine Cocaine Screen NEGATIVE NEGATIVE Urine Cannabinoids Screen POSITIVE H NEGATIVE My Orders Orders - JACINTA GRAVES DO Ed Iv/Invasive Line Start (01/03/21 23:38) Monitor-Rhythm Ecg Trace Only (01/03/21 23:38) Alcohol (01/03/21 23:38) Amylase (01/03/21 23:38) Cbc With Automated Diff (01/03/21 23:38) Comprehensive Metabolic Panel (01/03/21 23:38) Creatine Kinase (01/03/21 23:38) Creatine Kinase Mb (01/03/21 23:38) Drug Screen Stat (Urine) (01/03/21 23:38) Lipase (01/03/21 23:38) Magnesium (01/03/21 23:38) Protime With Inr (01/03/21 23:38) Partial Thromboplastin Time (01/03/21 23:38) Ua Culture If Indicated (01/03/21 23:38) Myoglobin Serum (01/03/21 23:38) Ct Head/Cervical Spine Wo (01/04/21 00:01) Ct Thoracic/Lumbar Spine Wo (01/04/21 00:01) Ct Chest/Abdomen/Pelvis W (01/04/21 00:01) Chest 1 View, Ap/Pa Only (01/04/21 00:01) Pelvis/Kevin Hips 5> Views (01/04/21 00:01) Covid 19 Inhouse Test (01/03/21 23:58) Iohexol Injection (Omnipaque 350 Mg/Ml 1 (01/04/21 02:15) Received Contrast (Hold Metformin- Contr (01/04/21 02:15) Ns (Ivpb) (Sodium Chloride 0.9% Ivpb Bag (01/04/21 02:15) Medications Given in ED Current Medications Medications Dose Ordered Sig/Otoniel Route Start Time Stop Time Status Last Admin Dose Admin Iohexol 100 ml ONCE ONCE IV 01/04/21 02:15 01/04/21 02:16 DC 01/04/21 02:14 100 ML Sodium Chloride 100 ml ONCE ONCE IV 01/04/21 02:15 01/04/21 02:16 DC 01/04/21 02:14 80 ML Vital Signs/I&O 01/03/21 23:30 Temp 36.9 Pulse 69 Resp 20 B/P (MAP) 148/69 (95) Pulse Ox 97 O2 Delivery Room Air Blood Pressure Mean: 95 Progress Progress Note : Progress Note COVID-19 TESTING PERFORMED DUE TO RECENT COVID SYMPTOMS--PT STATES THOSE SYMPTOMS ARE BETTER, BUT NOT COMPLETELY GONE PPE WORN AT ALL TIMES PLACED IN ISOLATION ROOM PT ADVISED OF NEED FOR QUARANTINE--STATES HE LIVES WITH ANOTHER MALE. PT DOES NOT WORK UNEVENTFUL ER STAY PT DID NOT HAVE ANY COMPLAINTS OF ANY KIND FOR REMAINDER OF ER STAY RESTED QUIETLY/SLEPT FOR REMAINDER OF ER STAY Diagnostic Imaging Comments CXR--NO ACUTE PROCESS, PENDING RADIOLOGIST REVIEW PELVIS AND BILATERAL HIP XRAYS--NO FX OR DISLOCATION, ARTHRITIC CHANGES OF RIGHT HIP CT HEAD/CERVICAL SPINE--NO ACUTE PROCESS, DEGENERATIVE CHANGES OF CERVICAL SPINE, PER [facility] VIA FAX AT [address]144 CT THORACIC/LUMBAR SPINE--NO ACUTE PROCESS, DEGENERATIVE CHANGES OF SPINE. PRIOR LAMINECTOMIES L4-L5 AND L5-S1. 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 PER [facility] VIA FAX AT 0151 Reviewed: Reviewed by Me Departure Impression Primary Impression: S/P FALL FROM STANDING Additional Impressions: COVID-19 virus infection LEFT ABDOMEN, FLANK AND HIP CONTUSION Marijuana smoker Closed head injury without loss of consciousness Disposition: 01 HOME, SELF-CARE Condition: Stable Departure-Patient Inst. Referrals: [facility] ([facility]P) Primary Care Physician BUNNY MORRIS (Family) Primary Care Physician Patient Instructions: Back Muscle Strain (DC), Blunt Abdominal Trauma (DC), Coronavirus Disease 2019 (COVID-19) ED, Marijuana Use and Addiction (DC), Minor Head Injury (DC), Preventing Falls in the Older Adult, Preventing the Spread of an Infectious Disease Add. Discharge Instructions: ICE TO SORE AREAS AT 20 MINUTE INTERVALS TYLENOL AND MOTRIN NEEDED FOR PAIN CONTINUE YOUR REGULAR MEDICATIONS NEEDED NO MARIJUANA QUARANTINE YOURSELF AND ALL HOUSEHOLD AND CLOSE CONTACTS FOR THE NEXT 2 WEEKS OR UNTIL CLEARED BY OR HEALTH DEPT All discharge instructions reviewed with patient and/or family. Voiced understanding. JACINTA GRAVES DO Jan 04, 2021 00:14
[2021-01-04 00:19] LABS: BASOPHILS # (AUTO) 0.1 10^3/uL (0.0-0.1); BASOPHILS % (AUTO) 1 % (0-10); EOSINOPHILS # (AUTO) 0.6 10^3/uL (0.0-0.3); EOSINOPHILS % (AUTO) 6 % (0-10); HEMATOCRIT 39 % (40-54); LYMPHOCYTES % (AUTO) 30 % (12-44); MEAN CORPUSCULAR HEMOGLOBIN 29 pg (25-34); MEAN CORPUSCULAR HGB CONC 33 g/dL (32-36); MEAN CORPUSCULAR VOLUME 86 fL (80-99); MEAN PLATELET VOLUME 10.5 fL (9.0-12.2); MONOCYTES % (AUTO) 9 % (0-12); NEUTROPHILS # (AUTO) 5.5 10^3/uL (1.8-7.8); NEUTROPHILS % (AUTO) 54 % (42-75); PLATELET COUNT 241 10^3/uL (130-400); WHITE BLOOD COUNT 10.2 10^3/uL (4.3-11.0)
[2021-01-04 00:22] LABS: ALBUMIN 3.8 GM/DL (3.2-4.5); CHLORIDE 104 MMOL/L (98-107); SODIUM 144 MMOL/L (135-145)
[2021-01-04 00:23] LABS: CALCIUM 9.1 MG/DL (8.5-10.1)
[2021-01-04 00:24] LABS: AMYLASE 57 U/L (25-125); INR 0.9 (0.8-1.4); PROTHROMBIN TIME PATIENT 12.6 SEC (12.2-14.7)
[2021-01-04 00:25] LABS: GLUCOSE 181 MG/DL (70-105); TOTAL PROTEIN 6.8 GM/DL (6.4-8.2)
[2021-01-04 00:26] LABS: CARBON DIOXIDE 26 MMOL/L (21-32)
[2021-01-04 00:27] LABS: BILIRUBIN,TOTAL 0.4 MG/DL (0.1-1.0)
[2021-01-04 00:28] LABS: ALKALINE PHOSPHATASE 98 U/L (40-136); CREATININE SERUM 0.96 MG/DL (0.60-1.30); GFR ESTIMATED > 60
[2021-01-04 00:29] LABS: BUN/CREATININE RATIO 25
[2021-01-04 00:31] LABS: ALANINE AMINOTRANSFERASE 10 U/L (0-55)
[2021-01-04 00:32] LABS: MAGNESIUM 1.7 MG/DL (1.6-2.4)
[2021-01-04 00:33] LABS: CREATINE KINASE 109 U/L (30-200); LIPASE 40 U/L (8-78)
[2021-01-04 00:40] LABS: CREATINE KINASE MB 4.8 NG/ML (<6.6)
[2021-01-04 01:38] LABS: BILIRUBIN,URINE NEGATIVE (NEGATIVE); CLARITY,URINE CLEAR; COLOR,URINE YELLOW; GLUCOSE, URINE (UA) TRACE (NEGATIVE); KETONES,URINE NEGATIVE (NEGATIVE); LEUKOCYTE ESTERASE ,URINE NEGATIVE (NEGATIVE); NITRITE,URINE NEGATIVE (NEGATIVE); PH,URINE 5.5 (5-9); PROTEIN,URINE NEGATIVE (NEGATIVE)
[2021-01-04 01:50] LABS: BACTERIA,URINE NEGATIVE /HPF
[2021-01-04 01:51] LABS: AMPHETAMINE SCREEN, URINE NEGATIVE (NEGATIVE); BARBITURATE SCREEN URINE NEGATIVE (NEGATIVE); BENZODIAZEPINES SCREEN URINE NEGATIVE (NEGATIVE); CANNABINOID SCREEN, URINE POSITIVE (NEGATIVE); COCAINE SCREEN URINE NEGATIVE (NEGATIVE); METHADONE STAT NEGATIVE (NEGATIVE); METHAMPHETAMINE SCREEN URINE S NEGATIVE (NEGATIVE); OPIATE SCREEN URINE NEGATIVE (NEGATIVE); OXYCODONE STAT NEGATIVE (NEGATIVE); PROPOXYPHENE STAT NEGATIVE (NEGATIVE); SQUAMOUS EPITHELIAL CELL,UR 0-2 /HPF; TRICYCLIC ANTIDEPRESSANTS SCRE POSITIVE (NEGATIVE)
[2021-01-04 02:15] VITALS: BP 149/71
[2021-01-04] MEDS ORDERED: HOLD METFORMIN - RECEIVED CONTRAST 20 ML VIAL IV SCH (02:15)
[2021-01-04] MEDS ORDERED: NS 100 ML (IVPB) BAG IV ONE (02:15)
[2021-01-04] MEDS ORDERED: IOHEXOL 350 MG/ML 100 ML (OMNIPAQUE 350) VIAL IV ONE (02:15)
--- NOTE | 2021-01-04 06:37 | Diagnostic Imaging Report ---
PROCEDURE: CT head and CT cervical spine without contrast. TECHNIQUE: Multiple contiguous axial images were obtained through the brain and cervical spine without the use of intravenous contrast. Sagittal and coronal reformations through the cervical spine were then performed. Auto Exposure Controls were utilized during the CT exam to meet ALARA standards for radiation dose reduction. Indication: Fall with head and neck pain. Comparison: 05/04/2018. Discussion: Head: No intracranial hemorrhage, mass, midline shift, or hydrocephalus. The ventricles and sulci are normal size and configuration for age. The visualized orbits, paranasal sinuses, mastoid air cells, and calvarium are unremarkable. Cervical spine: Advanced facet arthropathies noted diffusely. Advanced degenerative disc disease is noted diffusely. There is grade 1 anterolisthesis of C3 on C4 which appears to be due to facet arthropathy. No acute fracture identified. Paraspinal soft tissues are unremarkable. Multiple disc osteophyte complexes are noted throughout. Impression: 1. No acute intracranial abnormality. 2. Advanced degenerative disease and malalignment of the cervical spine as described, chronic. No acute fracture. 3. Agree with preliminary report. Dictated by: Dictated on workstation # [id number]
--- NOTE | 2021-01-04 06:46 | Diagnostic Imaging Report ---
Procedure: CT thoracic and lumbar spine without contrast. Technique: Multiple contiguous axial images were obtained through the thoracic and lumbar spine without the use of intravenous contrast. Sagittal and coronal reformations were then performed. All CT scans use one or more of the following dose optimizing techniques: automated exposure control, MA and/or KvP adjustment based on a patient size and exam type, or iterative reconstruction. Indication: Mid to lower back pain after fall. Comparison: None. Discussion: No acute compression fracture or abnormal subluxation identified. 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 Previous laminectomies are noted at the L4-L5 level. Advanced facet arthropathies noted within the lower lumbar spine. Overall alignment is anatomic. Nonobstructing right renal calculi incidentally noted. The soft tissues are otherwise unremarkable. Impression: 1. No acute fracture within the thoracic and lumbar spine. Chronic changes of the lumbar spine as described. 2. Nonobstructing right renal calculus. 3. Agree with preliminary report. Dictated by: Dictated on workstation # [id number]
--- NOTE | 2021-01-04 06:49 | Diagnostic Imaging Report ---
Indication: Fall with chest pain. Comparison: 10/28/2020. Discussion: Single portable upright view of the chest was obtained. Eventration of the right hemidiaphragm is incidentally noted. Normal heart size. No consolidation, pleural fluid, or pneumothorax. No osseous abnormality. Impression: 1. Negative portable chest. Dictated by: Dictated on workstation # [id number]
--- NOTE | 2021-01-04 06:50 | Diagnostic Imaging Report ---
Indication: Fall with pelvic pain. Comparison: None. Discussion: AP view of the pelvis and two views of bilateral hips were obtained. Contrast is noted within the urinary collecting system from prior CT. No displaced fracture or dislocation. No significant degenerative disease. Alignment is anatomic. Soft tissues are unremarkable. Impression: 1. Negative pelvis and hips. Dictated by: Dictated on workstation # [id number]
--- NOTE | 2021-01-04 06:56 | Diagnostic Imaging Report ---
EXAMINATION: CT Chest, Abdomen and Pelvis with intravenous contrast. TECHNIQUE: Multiple contiguous axial images were obtained through the chest, abdomen and pelvis after the uneventful administration of intravenous contrast. All CT scans use one or more of the following dose optimizing techniques: automated exposure control, MA and/or KvP adjustment based on a patient size and exam type, or iterative reconstruction. HISTORY: Fall on ice. COMPARISON: CT chest, abdomen and pelvis 10/21/2014. FINDINGS: Thyroid: The visualized thyroid gland is normal. Mediastinum: Heart size is normal without significant pericardial effusion. Calcifications of the aorta and coronary vessels. Thoracic aorta is normal in caliber. No suspicious lymphadenopathy. Lungs and airways: The lungs are clear without consolidation, pleural effusion, or pneumothorax. Bibasilar dependent atelectasis. There is a 0.4 cm right upper lobe pulmonary nodule which is unchanged from 2014 and likely benign (series 4 image 31). The airways are normal. Solid organs: The liver is normal without focal lesion. The gallbladder is surgically absent. There is no biliary ductal dilation. Pancreas is normal. Spleen is normal. Adrenal glands are normal. Nonobstructing right renal calculi measuring up to 0.4 cm. No hydronephrosis or suspicious enhancing renal lesion. Bowel: The stomach and small bowel are normal without obstruction. Colon is unremarkable. No findings of acute appendicitis. Peritoneum: There is no intraperitoneal free fluid or free air. No suspicious lymphadenopathy. Vasculature: Calcification of the aorta without aneurysm. Musculoskeletal: There is a defect of the spinous process of L3 which is new from 2014 but appears well-corticated on today's exam (series 2 image 78). 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 No findings suggesting acute fracture. Laminectomy L4-L5. Pelvis: The prostate gland is normal. The urinary bladder is normal. IMPRESSION: 1. No acute abnormality in the chest, abdomen, or pelvis. 2. A chronic appearing fracture of the spinous process of the L3 vertebral body. 3. Nonobstructing right renal calculi measuring up to 0.4 cm. 4. Agree with preliminary interpretation. Dictated by: Dictated on workstation # [id number]
== END 2021-01-04 02:15 | disposition home or self-care (01) ==
LOC: EDUNIT# 23:22 → ER 23:25
DX: S30.1XXA Contusion of abdominal wall, initial encounter (principal); S70.01XA Contusion of right hip, initial encounter; S09.90XA Unspecified injury of head, initial encounter; U07.1 COVID-19; F12.10 Cannabis abuse, uncomplicated; F41.9 Anxiety disorder, unspecified; G20 Parkinson's disease; F32.9 Major depressive disorder, single episode, unspecified; E11.9 Type 2 diabetes mellitus without complications; I10 Essential (primary) hypertension; F17.210 Nicotine dependence, cigarettes, uncomplicated; Z85.47 Personal history of malignant neoplasm of testis; Z82.49 Family history of ischemic heart disease and other diseases of the circulatory system; Z83.3 Family history of diabetes mellitus; Z79.84 Long term (current) use of oral hypoglycemic drugs; W01.0XXA Fall on same level from slipping, tripping and stumbling without subsequent striking against object, initial encounter
CPT/HCPCS: 36415; 70450; 71045; 71260; 72125; 72128; 72131; 73523; 74177; 80053; 80306; 80320; 81000; 82150; 82550; 82553; 83690; 83735; 83874; 85025; 85610; 85730; 87635

== ENCOUNTER 2021-10-19 04:42 | Emergency (ER) | payer MEDICARE, MEDICAID ==
[~2021-10-19] VITALS: Ht 167.7 cm; Wt 77.1 kg
[~2021-10-19 04:42] MED LIST changes: +ARIP15TA20 PO; -ARIP15TA9 PO; -SULF1TAB35 PO; +SULF1TAB38 PO; +TIZA-186 PO; -TIZA4TAB4 PO
--- NOTE | 2021-10-19 05:05 | ED Hip Pain/Injury ---
General Stated Complaint: RIGHT HIP PAIN Source: patient (VERY POOR HISTORIAN ABOUT CURRENT AND PAST MEDICAL HISTORY. DOES NOT KNOW ANY OF HIS MEDICATIONS OR WHAT HE TAKES THEM FOR. ), old records History of Present Illness Date Seen by Provider: Oct 19, 2021 Time Seen by Provider: 04:52 Initial Comments PT ARRIVES VIA POV FROM HOME--LIVES WITH DAUGHTER C/O RIGHT HIP PAIN POINTS TO RIGHT SI JOINT AREA OF MOST PAIN PAIN RADIATES DOWN LATERAL ASPECT OF RIGHT THIGH-DOWN TO KNEE. NO PARESTHESIAS OR MOTOR DEFICITS PAIN IS CHRONIC, WORSE FOR THE LAST FEW MONTHS NO INJURY PT ALSO HAS CHRONIC BACK PAIN HAS NOT TAKEN ANYTHING FOR PAIN PAIN IS NOT ANY DIFFERENT TONIGHT PT HAS BEEN SEEN AT [facility] FOR THIS PROBLEM--PT HAS NO IDEA WHO HE SAW THERE OR WHEN, BUT STATES HE WAS ONLY THERE ONE TIME STATES "THEY SAID IT WAS BONE ON BONE" BUT NO SURGERY HAS BEEN PLANNED Other PCP: LIGIA TREJO Allergies and Home Medications Allergies Coded Allergies: Madhu Known Allergies (Verified Allergy, Unknown, 08/10/06) Patient Home Medication List Aripiprazole (Aripiprazole) 15 Mg Tablet, 15 MG PO DAILY, (Reported) Entered as Reported by: NAT AVALOS on 05/05/18 09 Baclofen (Baclofen) 10 Mg Tablet, 10 MG PO TID, (Reported) Entered as Reported by: NAT AVALOS on 05/05/18 0958 Carbidopa/Levodopa (Carbidopa-Levodopa 10-100 Tab) 1 Each Tablet, 1 TAB PO TID, (Reported) Entered as Reported by: NAT AVALOS on 05/05/18 09 Carvedilol (Carvedilol) 6.25 Mg Tablet, 6.25 MG PO BID, (Reported) Entered as Reported by: NANETTE MURRAY on 07/02/16 1251 Doxycycline Hyclate (Doxycycline Hyclate) 100 Mg Tablet, 100 MG PO BID Prescribed by: BAIRON JIMENES on 03/23/20 0300 Escitalopram Oxalate (Escitalopram Oxalate) 20 Mg Tablet, 20 MG PO DAILY, (Reported) Entered as Reported by: NAT AVALOS on 05/05/18 09 Gabapentin (Gabapentin) 300 Mg Capsule, 300 MG PO TID, (Reported) Entered as Reported by: NANETTE MURRAY on 07/02/16 1251 Lidocaine (Lidocaine 5% Patch) 1 Each Adh..patch, 1 EACH TP Q12H PRN for Neuropathic pain Prescribed by: JACINTA GRAVES on 10/19/21 0622 Lisinopril (Lisinopril) 20 Mg Tablet, 20 MG PO DAILY, (Reported) Entered as Reported by: NANETTE MURRAY on 07/02/16 1251 Lorazepam (Ativan) 0.5 Mg Tablet, 0.5 MG PO BID PRN for ANXIETY Prescribed by: LIZZ KIRAN on 10/28/20 1555 Meloxicam (Meloxicam) 7.5 Mg Tablet, 7.5 MG PO BID, (Reported) Entered as Reported by: ROYA COPE on 02/06/19 1332 Metformin HCl (Metformin HCl ER) 500 Mg Tab.er.24h, 500 MG PO BID WITH MEALS, (Reported) Entered as Reported by: NAT AVALOS on 05/05/18 0958 Mirtazapine (Remeron) 45 Mg Tab.rapdis, 45 MG PO HS, (Reported) Entered as Reported by: ROYA COPE on 02/06/19 1332 Simvastatin (Simvastatin) 40 Mg Tablet, 40 MG PO HS, (Reported) Entered as Reported by: NANETTE MURRAY on 07/02/16 1251 Sulfamethoxazole/Trimethoprim (Bactrim Ds Tablet) 1 Each Tablet, 1 EACH PO BID Prescribed by: BAIRON JIMENES on 03/23/20 0300 Review of Systems Constitutional: see HPI Musculoskeletal: see HPI Skin: no symptoms reported Psychiatric/Neurological: See HPI Past Hcjdjls-Czatgt-Cxurmj Hx Patient Social History Tobacco Use?: Yes Tobacco type used: Cigarettes Smoking Status: Current Everyday Smoker Substance use?: Yes Substance type: Methamphetamine, Marijuana Alcohol Use?: Yes Alcohol Frequency: Daily Immunizations Up To Date Tetanus Booster (TDap): Unknown Seasonal Allergies Seasonal Allergies: Yes Past Medical History Surgeries: Yes (LT KNEE; LITHOTRIPSY; RIGHT ORCHIECTOMY; COLONOSCOPY ) Appendectomy, Gallbladder, Orthopedic, Renal, Testicular Respiratory: Yes COPD Cardiac: Yes Hypertension Neurological: Yes Parkinson's Disease Genitourinary: Yes Kidney Stones Gastrointestinal: Yes Chronic Diarrhea, Irritable Bowel Musculoskeletal: Yes (CHRONIC NECK PAIN ) Degenerate Disk Disease, Chronic Back Pain Endocrine: Yes Diabetes, Non-Insulin dep HEENT: No Cancer: Yes Testicular Did You Recieve Any Treatments: Yes What Type of Treatment Did You: Surgical Intervention Psychosocial: Yes Anxiety, PTSD, Suicide Attempts, Personality Disorder, Violent Behavior, Depression Integumentary: Yes (FOOT ULCER) Blood Disorders: No Family Medical History Patient reports no known family medical history. Heart Disease, CAD Over 55 Years Old, Diabetes, Hypertension SOCIAL HISTORY: -ETOH--REGULAR USE -DRUGS---REGULAR MARIJUANA USE, ALSO TESTED + FOR AMPHETAMINES/METHAMPHETAMINES IN PAST -SMOKES 1 1/2-2 PPD ADDITIONAL PAST SURGICAL HISTORY: -LUMBAR LAMINECTOMY L4-L5 AND L5-S1 Physical Exam Vital Signs Vital Signs - First Documented 10/19/21 04:49 Temp 35.5 Pulse 46 Resp 18 B/P (MAP) 121/96 (104) O2 Delivery Room Air Capillary Refill : Height, Weight, BMI Height: 5'6.00" Weight: 157lbs. 5.0oz. 71.467120pu; 30.00 BMI Method:Stated General Appearance: No Apparent Distress, Other (WALKS IN ON HIS OWN WITHOUT DIFFICULTY. DIRTY/UNKEMPT. REEKS OF CIGARETTES.) Back: Other (LOWER LUMBAR TENDERNESS, RIGHT SI JOINT TENDERNESS AND RIGHT HIP TENDERNESS. 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 There is grade 1 retrolisthesis of L3 on L4 and grade 1 anterolisthesis of L5 on S1. The vertebral body heights are well maintained. Mild degenerative changes are present in the lumbar spine. The included soft tissues are unremarkable. There is calcified aortic atherosclerotic plaque. IMPRESSION: 1. No acute fracture or dislocation in the lumbar spine. 2. Grade 1 retrolisthesis of L3 on L4 and grade 1 anterolisthesis of L5 on S1. XRAYS PELVIS AND RIGHT HIP--PER RADIOLOGIST REPORT AT 0623 FINDINGS: There is no acute fracture or dislocation of the pelvis and bilateral hips. Alignment is anatomic. There is stable sclerosis in the right femoral head. Moderate degenerative changes are seen in the right hip joint. IMPRESSION: 1. No acute fracture or dislocation in the pelvis and bilateral hips. 2. Stable sclerosis in the right femoral head which may represent osteonecrosis. Stable moderate degenerative changes are seen in the right hip joint. Reviewed: Reviewed by Me Departure Impression Primary Impression: CHRONIC LOWER BACK PAIN WITH RIGHT SIDED SCIATICA Additional Impression: Chronic right hip pain Disposition: HOME, SELF-CARE Condition: Stable Departure-Patient Inst. Decision time for Depature: 06:23 Referrals: [facility] (PCP) Primary Care Physician BUNNY MORRIS (Family) Primary Care Physician [facility] Patient Instructions: Muscle and Bone Pain (DC) Add. Discharge Instructions: CONTINUE YOUR REGULAR MEDICATIONS PRESCRIBED, INCLUDING MELOXICAM ALTERNATE ICE AND HEAT TO SORE AREAS AT 20 MINUTE INTERVALS FOLLOW UP WITH [facility] STATES THIS WEEK FOR FURTHER CARE--CALL TODAY TO SCHEDULE APPOINTMENT Scripts Lidocaine (Lidocaine 5% Patch) 1 Each Adh..patch 1 EACH TP Q12H PRN for Neuropathic pain MDD 2, #10 PATCH 2 patches max for 12 hours, then 12 hours patch-free period. Prov: JACINTA GRAVES DO 10/19/21 JACINTA GRAVES DO Oct 19, 2021 05:05
--- NOTE | 2021-10-19 06:14 | Diagnostic Imaging Report ---
EXAMINATION: Lumbosacral spine 2 or 3 views HISTORY: Low back pain. COMPARISON: 01/04/2021. FINDINGS: There is no acute fracture or dislocation of the lumbar spine. There is grade 1 retrolisthesis of L3 on L4 and grade 1 anterolisthesis of L5 on S1. The vertebral body heights are well maintained. Mild degenerative changes are present in the lumbar spine. The included soft tissues are unremarkable. There is calcified aortic atherosclerotic plaque. IMPRESSION: 1. No acute fracture or dislocation in the lumbar spine. 2. Grade 1 retrolisthesis of L3 on L4 and grade 1 anterolisthesis of L5 on S1. Dictated by: Dictated on workstation # [id number]
--- NOTE | 2021-10-19 06:17 | Diagnostic Imaging Report ---
CLINICAL HISTORY: Pelvic and right hip pain. Osteoarthritis. COMPARISON: 01/04/2021. TECHNIQUE: 3 views of the pelvis and right hip. FINDINGS: There is no acute fracture or dislocation of the pelvis and bilateral hips. Alignment is anatomic. There is stable sclerosis in the right femoral head. Moderate degenerative changes are seen in the right hip joint. IMPRESSION: 1. No acute fracture or dislocation in the pelvis and bilateral hips. 2. Stable sclerosis in the right femoral head which may represent osteonecrosis. Stable moderate degenerative changes are seen in the right hip joint. Dictated by: Dictated on workstation # [id number]
[2021-10-19] MEDS ORDERED: LIDO700A45 TP (06:22)
[2021-10-19 06:40] VITALS: BP 130/78
== END 2021-10-19 06:45 | disposition home or self-care (01) ==
LOC: EDUNIT# 04:42 → ER 04:44
DX: G89.29 Other chronic pain (principal); M54.41 Lumbago with sciatica, right side; M25.551 Pain in right hip; J44.9 Chronic obstructive pulmonary disease, unspecified; I10 Essential (primary) hypertension; G20 Parkinson's disease; E11.9 Type 2 diabetes mellitus without complications; F41.9 Anxiety disorder, unspecified; F32.9 Major depressive disorder, single episode, unspecified; F17.210 Nicotine dependence, cigarettes, uncomplicated; Z79.84 Long term (current) use of oral hypoglycemic drugs; Z79.899 Other long term (current) drug therapy
CPT/HCPCS: 72100

== ENCOUNTER → 2022-05-11 | Outpatient (CLI) | payer MEDICARE, MEDICAID ==
[~2022-05-11] MED LIST changes: +LIDO700A45 TP
--- NOTE | 2022-05-11 15:29 | Diagnostic Imaging Report ---
INDICATION: Right hip pain. TIME OF EXAM: 3:07 PM. COMPARISON: Correlation is made with radiographs from 10/19/2021. FINDINGS: Two views of the right hip demonstrate normal femoroacetabular alignment. The joint space is well-maintained. Sclerosis of the femoral head is unchanged. There is no evidence of fragmentation or volume loss of the femoral head. The femoral head and neck are intact without fracture. IMPRESSION: Stable hip radiographs when compared with the exam from 10/19/2021. Dictated by: Dictated on workstation # [id number]
== END ==
LOC: ORTHO 14:37
PROVIDERS: ATTEND Orthopaedic Surgery
DX: M25.551 Pain in right hip (principal)
CPT/HCPCS: 73502; G0463; 99203

== ENCOUNTER 2022-05-27 14:26 | Inpatient (IN) | payer MEDICARE, MEDICAID ==
[~2022-05-27] VITALS: Ht 165 cm; Wt 72.5 kg
--- NOTE | 2022-05-27 15:17 | ED General ---
General Chief Complaint: Dizziness/Syncope Stated Complaint: FALLING Nursing Triage Note: PT PRESENTS TO ED VIA POV FROM HOME WITH COMPLAINTS OF INCREASED DIZZINESS, "WORMS IN HIS SKIN", AND FALLING 3 TIMES TODAY. Source of Information: Patient, Family, Old Records Exam Limitations: No Limitations History of Present Illness Date Seen by Provider: May 27, 2022 Time Seen by Provider: 15:01 Initial Comments This is 67-year-old gentleman presents to the emergency room by private vehicle with complaints of feeling dizzy and having falls. He is noted to be hypotensive and bradycardic. His daughter provides additional history that he likes to sit outside and it has been extremely hot and humid recently. Temperatures yesterday were near 100. Review of patient's chart reveals he takes multiple sedating medications including Sinemet, Depakote, and baclofen. He also has a history of polysubstance abuse. Daughter reports he had COVID-19 at the end of March and beginning of April. There is a granddaughter that lives in the home who presently has COVID-19. Patient denies any injuries with his falls. He has not struck his head. He complains of right hip pain which has been present for several months. He is ambulatory. Systolic blood pressures while lying in bed are in the 80s and 90s. Systolic blood pressure standing was 76. Patient admits to smoking marijuana today. Allergies and Home Medications Allergies Coded Allergies: Madhu Known Allergies (Verified Allergy, Unknown, 08/10/06) Patient Home Medication List Home Medication List Reviewed: Yes Aripiprazole (Aripiprazole) 15 Mg Tablet, 15 MG PO DAILY, (Reported) Entered as Reported by: NAT AVALOS on 05/05/18 09 Baclofen (Baclofen) 10 Mg Tablet, 10 MG PO TID, (Reported) Entered as Reported by: NAT AVALOS on 05/05/18 09 Carbidopa/Levodopa (Carbidopa-Levodopa 10-100 Tab) 1 Each Tablet, 1 TAB PO TID, (Reported) Entered as Reported by: NAT AVALOS on 05/05/18 09 Carvedilol (Carvedilol) 6.25 Mg Tablet, 6.25 MG PO BID, (Reported) Entered as Reported by: NANETTE MURRAY on 07/02/16 1251 Doxycycline Hyclate (Doxycycline Hyclate) 100 Mg Tablet, 100 MG PO BID Prescribed by: BAIRON JIMENES on 03/23/20 0300 Escitalopram Oxalate (Escitalopram Oxalate) 20 Mg Tablet, 20 MG PO DAILY, (Reported) Entered as Reported by: NAT AVALOS on 05/05/18 0958 Gabapentin (Gabapentin) 300 Mg Capsule, 300 MG PO TID, (Reported) Entered as Reported by: NANETTE MURRAY on 07/02/16 1251 Lidocaine (Lidocaine 5% Patch) 1 Each Adh..patch, 1 EACH TP Q12H PRN for Neuropathic pain Prescribed by: JACINTA GRAVES on 10/19/21 0622 Lisinopril (Lisinopril) 20 Mg Tablet, 20 MG PO DAILY, (Reported) Entered as Reported by: NANETTE MURRAY on 07/02/16 1251 Lorazepam (Ativan) 0.5 Mg Tablet, 0.5 MG PO BID PRN for ANXIETY Prescribed by: LIZZ KIRAN on 10/28/20 1555 Meloxicam (Meloxicam) 7.5 Mg Tablet, 7.5 MG PO BID, (Reported) Entered as Reported by: ROYA COPE on 02/06/19 1332 Metformin HCl (Metformin HCl ER) 500 Mg Tab.er.24h, 500 MG PO BID WITH MEALS, (Reported) Entered as Reported by: NAT AVALOS on 05/05/18 0958 Mirtazapine (Remeron) 45 Mg Tab.rapdis, 45 MG PO HS, (Reported) Entered as Reported by: ROYA COPE on 02/06/19 1332 Simvastatin (Simvastatin) 40 Mg Tablet, 40 MG PO HS, (Reported) Entered as Reported by: NANETTE MURRAY on 07/02/16 1251 Sulfamethoxazole/Trimethoprim (Bactrim Ds Tablet) 1 Each Tablet, 1 EACH PO BID Prescribed by: BAIRON JIMENES on 03/23/20 0300 Review of Systems Review of Systems Constitutional: see HPI EENTM: no symptoms reported Respiratory: no symptoms reported Cardiovascular: see HPI Gastrointestinal: no symptoms reported Genitourinary: no symptoms reported Musculoskeletal: see HPI Skin: no symptoms reported Psychiatric/Neurological: See HPI Hematologic/Lymphatic: No Symptoms Reported Immunological/Allergic: no symptoms reported Past Qwjrnjs-Xurdcz-Wcqioi Hx Patient Social History Tobacco Use?: Yes Tobacco type used: Cigarettes Smoking Status: Current Everyday Smoker Use of E-Cig and/or Vaping [place]: Current Someday User Substance use?: Yes Substance type: Marijuana Substance frequency: Once in a while Alcohol Use?: No Pt feels they are or have been: No Immunizations Up To Date Tetanus Booster (TDap): Unknown Seasonal Allergies Seasonal Allergies: Yes Past Medical History Surgery/Hospitalization HX: pmh: dm2, htn, psych Surgeries: Yes (LT KNEE; LITHOTRIPSY; RIGHT ORCHIECTOMY; COLONOSCOPY ) Appendectomy, Gallbladder, Orthopedic, Renal, Testicular Respiratory: Yes COPD Cardiac: Yes Hypertension Neurological: Yes Parkinson's Disease Genitourinary: Yes Kidney Stones Gastrointestinal: Yes Chronic Diarrhea, Irritable Bowel Musculoskeletal: Yes (CHRONIC NECK PAIN ) Degenerate Disk Disease, Chronic Back Pain Endocrine: Yes Diabetes, Non-Insulin dep HEENT: No Cancer: Yes Testicular Did You Recieve Any Treatments: Yes What Type of Treatment Did You: Surgical Intervention Psychosocial: Yes Anxiety, PTSD, Suicide Attempts, Personality Disorder, Violent Behavior, Depression Integumentary: Yes (FOOT ULCER) Blood Disorders: No Family Medical History Patient reports no known family medical history. Heart Disease, CAD Over 55 Years Old, Diabetes, Hypertension SOCIAL HISTORY: -ETOH--REGULAR USE -DRUGS---REGULAR MARIJUANA USE, ALSO TESTED + FOR AMPHETAMINES/METHAMPHETAMINES IN PAST -SMOKES 1 1/2-2 PPD ADDITIONAL PAST SURGICAL HISTORY: -LUMBAR LAMINECTOMY L4-L5 AND L5-S1 Physical Exam Vital Signs Vital Signs - First Documented 05/27/22 14:43 Temp 35.8 Pulse 49 Resp 16 B/P (MAP) 94/55 (68) Pulse Ox 100 Capillary Refill : Less Than 3 Seconds Height, Weight, BMI Height: 5'6.00" Weight: 157lbs. 5.0oz. 71.190386vo; 26.00 BMI Method:Stated General Appearance: No Apparent Distress, WD/WN HEENT: PERRL/EOMI, Normal ENT Inspection, Other (Oropharynx somewhat dry) Neck: Normal Inspection Respiratory: Lungs Clear, Normal Breath Sounds, No Accessory Muscle Use, No Respiratory Distress Cardiovascular: No Edema, No Murmur, Bradycardia Gastrointestinal: Normal Bowel Sounds, Non Tender, Soft Extremity: Normal Inspection, Non Tender, No Pedal Edema, Other (No hip pain with rotation) Neurologic/Psychiatric: Alert, No Motor/Sensory Deficits, Normal Mood/Affect, Other (Mentation sluggish) Skin: Normal Color, Warm/Dry Progress/Results/Core Measures Suspected Sepsis SIRS Temperature: Pulse: 49 Respiratory Rate: 16 Laboratory Tests 05/27/22 15:00: White Blood Count 18.3H Blood Pressure 94 /55 Mean: 68 Laboratory Tests 05/27/22 15:00: Creatinine 4.05H, Platelet Count 339, Total Bilirubin 0.4 Results/Orders Lab Results Laboratory Tests Test 05/27/22 15:00 05/27/22 15:17 05/27/22 16:00 Range/Units White Blood Count 18.3 H 4.3-11.0 10^3/uL Red Blood Count 5.12 4.30-5.52 10^6/uL Hemoglobin 15.0 13.3-17.7 g/dL Hematocrit 44 40-54 % Mean Corpuscular Volume 87 80-99 fL Mean Corpuscular Hemoglobin 29 25-34 pg Mean Corpuscular Hemoglobin Concent 34 32-36 g/dL Red Cell Distribution Width 14.2 10.0-14.5 % Platelet Count 339 130-400 10^3/uL Mean Platelet Volume 10.7 9.0-12.2 fL Immature Granulocyte % (Auto) 0 % Neutrophils (%) (Auto) 70 42-75 % Lymphocytes (%) (Auto) 16 12-44 % Monocytes (%) (Auto) 13 H 0-12 % Eosinophils (%) (Auto) 1 0-10 % Basophils (%) (Auto) 0 0-10 % Neutrophils # (Auto) 12.8 H 1.8-7.8 X 10^3 Lymphocytes # (Auto) 3.0 1.0-4.0 X 10^3 Monocytes # (Auto) 2.3 H 0.0-1.0 X 10^3 Eosinophils # (Auto) 0.1 0.0-0.3 10^3/uL Basophils # (Auto) 0.0 0.0-0.1 10^3/uL Immature Granulocyte # (Auto) 0.1 0.0-0.1 10^3/uL Neutrophils % (Manual) 69 % Lymphocytes % (Manual) 20 % Monocytes % (Manual) 10 % Eosinophils % (Manual) 1 % Blood Morphology Comment NORMAL Sodium Level 140 135-145 MMOL/L Potassium Level 4.3 3.6-5.0 MMOL/L Chloride Level 100 98-107 MMOL/L Carbon Dioxide Level 21 21-32 MMOL/L Anion Gap 19 H 5-14 MMOL/L Blood Urea Nitrogen 52 H 7-18 MG/DL Creatinine 4.05 H 0.60-1.30 MG/DL Estimat Glomerular Filtration Rate 15 BUN/Creatinine Ratio 13 Glucose Level 149 H 70-105 MG/DL Calcium Level 9.9 8.5-10.1 MG/DL Corrected Calcium 8.5-10.1 MG/DL Magnesium Level 2.3 1.6-2.4 MG/DL Total Bilirubin 0.4 0.1-1.0 MG/DL Aspartate Amino Transf (AST/SGOT) 10 5-34 U/L Alanine Aminotransferase (ALT/SGPT) 6 0-55 U/L Alkaline Phosphatase 79 40-136 U/L C-Reactive Protein High Sensitivity 0.48 0.00-0.50 MG/DL Total Protein 7.7 6.4-8.2 GM/DL Albumin 4.6 H 3.2-4.5 GM/DL Valproic Acid (Depakene) Level 33.0 L 50.0-100.0 UG/ML Serum Alcohol < 10 <10 MG/DL Urine Color ORANGE Urine Clarity CLEAR Urine pH 5.5 5-9 Urine Specific Wilder >=1.030 1.016-1.022 Urine Protein 1+ H NEGATIVE Urine Glucose (UA) NEGATIVE NEGATIVE Urine Ketones TRACE H NEGATIVE Urine Nitrite NEGATIVE NEGATIVE Urine Bilirubin 2+ H NEGATIVE Urine Urobilinogen 0.2 < = 1.0 MG/DL Urine Leukocyte Esterase NEGATIVE NEGATIVE Urine RBC (Auto) NEGATIVE NEGATIVE Urine RBC NONE /HPF Urine WBC 2-5 /HPF Urine Squamous Epithelial Cells 0-2 /HPF Urine Crystals PRESENT H /LPF Urine Calcium Oxalate Crystals FEW H /LPF Urine Bacteria FEW H /HPF Urine Casts PRESENT /LPF Urine Hyaline Casts 2-5 H /LPF Urine White Blood Cell Casts 0-2 H /LPF Urine Mucus SMALL H /LPF Urine Culture Indicated YES Urine Opiates Screen POSITIVE H NEGATIVE Urine Oxycodone Screen NEGATIVE NEGATIVE Urine Methadone Screen NEGATIVE NEGATIVE Urine Propoxyphene Screen NEGATIVE NEGATIVE Urine Barbiturates Screen NEGATIVE NEGATIVE Ur Tricyclic Antidepressants Screen NEGATIVE NEGATIVE Urine Phencyclidine Screen NEGATIVE NEGATIVE Urine Amphetamines Screen NEGATIVE NEGATIVE Urine Methamphetamines Screen NEGATIVE NEGATIVE Urine Benzodiazepines Screen NEGATIVE NEGATIVE Urine Cocaine Screen NEGATIVE NEGATIVE Urine Cannabinoids Screen POSITIVE H NEGATIVE Influenza Type A (RT-PCR) Not Detected Not Detecte Influenza Type B (RT-PCR) Not Detected Not Detecte SARS-CoV-2 RNA (RT-PCR) Not Detected Not Detecte My Orders Orders - BAIRON GRAHAM MD Cbc With Automated Diff (05/27/22 15:01) Comprehensive Metabolic Panel (05/27/22 15:01) Hs C Reactive Protein (05/27/22 15:01) Magnesium (05/27/22 15:01) Ua Culture If Indicated (05/27/22 15:01) Ed Iv/Invasive Line Start (05/27/22 15:01) Ekg Tracing (05/27/22 15:01) Monitor-Rhythm Ecg Trace Only (05/27/22 15:01) Valproic Acid (05/27/22 15:04) Alcohol (05/27/22 15:05) Drug Screen Stat (Urine) (05/27/22 15:05) Manual Differential (05/27/22 15:00) Orthostatic Vital Signs (Adult (05/27/22 15:35) Ns Iv 1000 Ml (Sodium Chloride 0.9%) (05/27/22 15:45) Urine Culture (05/27/22 15:17) Covid 19 Inhouse Test (05/27/22 16:01) Influenza A And B By Pcr (05/27/22 16:01) Ns Iv 1000 Ml (Sodium Chloride 0.9%) (05/27/22 16:15) Ed Admission (Communication) (05/27/22 16:22) Vital Signs/I&O 05/27/22 05/27/22 14:43 15:46 Temp 35.8 Pulse 49 49 65 Resp 16 B/P (MAP) 94/55 (68) 81/58 (66) 76/61 (66) Pulse Ox 100 Capillary Refill : Less Than 3 Seconds Blood Pressure Mean: 68 Progress Note #1: Progress Note Patient was found to be hypotensive and bradycardic. Causes likely multifactorial. He is likely very dehydrated from being out in the heat. This likely exacerbated medication effects with sedating medications such as baclofen, valproic acid, etc. Additionally, patient test positive for marijuana and opioids. Case was discussed with Dr. Palacios. Patient will be held in the emergency department until blood pressures normalized with IV hydration. Then he will be admitted for further treatment and monitoring. Progress Note #2: Progress Note Multiple consecutive systolic blood pressures were greater than 90 after 2 L of IV hydration. Blood pressures were still low normotensive. Another 500 mL normal saline bolus was ordered to start before patient transferred to the floor. Patient requested a DO NOT RESUSCITATE. I rephrase the question to confirm his request, and he did indeed confirm DO NOT RESUSCITATE. When I spoke with patient's daughter, she also felt like this was consistent with his prior expressions. ECG Initial ECG Impression Date: May 27, 2022 Initial ECG Impression Time: 15:10 Initial ECG Rate: 47 Initial ECG Rhythm: S.Barry Initial ECG Impression: Sinus Bradycardia Comment Sinus bradycardia with right bundle branch block, similar to prior. No ST elevation or depression. No axis deviation. Departure Communication (Admissions) Time/Spoke to Admitting Phy: 16:05 Dr. Palacios Impression Primary Impression: Acute kidney injury Additional Impressions: Dehydration Sinus bradycardia Hypotension Qualified Codes: I95.89 - Other hypotension; E86.1 - Hypovolemia Substance abuse Disposition: 09 ADMITTED INPATIENT Condition: Improved Admissions Decision to Admit Reason: Admit from ER (General) Decision to Admit/Date: May 27, 2022 Time/Decision to Admit Time: 16:05 Departure-Patient Inst. Referrals: [facility] [place] (PCP) Primary Care Physician BUNNY MORRIS (Family) Primary Care Physician BAIRON GRAHAM MD May 27, 2022 15:17
[2022-05-27 15:18] LABS: BASOPHILS % (AUTO) 0 % (0-10); EOSINOPHILS # (AUTO) 0.1 10^3/uL (0.0-0.3); EOSINOPHILS % (AUTO) 1 % (0-10); HEMATOCRIT 44 % (40-54); LYMPHOCYTES % (AUTO) 16 % (12-44); MEAN CORPUSCULAR HEMOGLOBIN 29 pg (25-34); MEAN CORPUSCULAR HGB CONC 34 g/dL (32-36); MEAN CORPUSCULAR VOLUME 87 fL (80-99); MEAN PLATELET VOLUME 10.7 fL (9.0-12.2); MONOCYTES # (AUTO) 2.3 X 10^3 (0.0-1.0); MONOCYTES % (AUTO) 13 % (0-12); NEUTROPHILS # (AUTO) 12.8 X 10^3 (1.8-7.8); NEUTROPHILS % (AUTO) 70 % (42-75); PLATELET COUNT 339 10^3/uL (130-400); WHITE BLOOD COUNT 18.3 10^3/uL (4.3-11.0)
[2022-05-27 15:22] LABS: BILIRUBIN,URINE 2+ (NEGATIVE); CLARITY,URINE CLEAR; COLOR,URINE ORANGE; GLUCOSE, URINE (UA) NEGATIVE (NEGATIVE); KETONES,URINE TRACE (NEGATIVE); LEUKOCYTE ESTERASE ,URINE NEGATIVE (NEGATIVE); NITRITE,URINE NEGATIVE (NEGATIVE); PH,URINE 5.5 (5-9); PROTEIN,URINE 1+ (NEGATIVE)
[2022-05-27 15:24] LABS: ALBUMIN 4.6 GM/DL (3.2-4.5); CHLORIDE 100 MMOL/L (98-107); POTASSIUM 4.3 MMOL/L (3.6-5.0); SODIUM 140 MMOL/L (135-145)
[2022-05-27 15:26] LABS: CALCIUM 9.9 MG/DL (8.5-10.1)
[2022-05-27 15:27] LABS: GLUCOSE 149 MG/DL (70-105); TOTAL PROTEIN 7.7 GM/DL (6.4-8.2)
[2022-05-27 15:28] LABS: BILIRUBIN,TOTAL 0.4 MG/DL (0.1-1.0); CARBON DIOXIDE 21 MMOL/L (21-32)
[2022-05-27 15:30] LABS: ALKALINE PHOSPHATASE 79 U/L (40-136)
[2022-05-27 15:31] LABS: CREATININE SERUM 4.05 MG/DL (0.60-1.30); GFR ESTIMATED 15
[2022-05-27 15:32] LABS: BUN/CREATININE RATIO 13; EOSINOPHILS % (MANUAL) 1 %; LYMPHOCYTES % (MANUAL) 20 %; MONOCYTES % (MANUAL) 10 %; NEUTROPHILS % (MANUAL) 69 %; RBC MORPH NORMAL
[2022-05-27 15:33] LABS: MAGNESIUM 2.3 MG/DL (1.6-2.4)
[2022-05-27 15:34] LABS: ALANINE AMINOTRANSFERASE 6 U/L (0-55)
[2022-05-27 15:41] LABS: BACTERIA,URINE FEW /HPF; CALCIUM OXALATE CRYSTALS,UR FEW /LPF; SQUAMOUS EPITHELIAL CELL,UR 0-2 /HPF; WHITE BLOOD CELL CASTS, URINE 0-2 /LPF
[2022-05-27 15:44] LABS: AMPHETAMINE SCREEN, URINE NEGATIVE (NEGATIVE); BARBITURATE SCREEN URINE NEGATIVE (NEGATIVE); BENZODIAZEPINES SCREEN URINE NEGATIVE (NEGATIVE); CANNABINOID SCREEN, URINE POSITIVE (NEGATIVE); COCAINE SCREEN URINE NEGATIVE (NEGATIVE); METHADONE STAT NEGATIVE (NEGATIVE); OPIATE SCREEN URINE POSITIVE (NEGATIVE); OXYCODONE STAT NEGATIVE (NEGATIVE); PROPOXYPHENE STAT NEGATIVE (NEGATIVE); TRICYCLIC ANTIDEPRESSANTS SCRE NEGATIVE (NEGATIVE)
[2022-05-27] MEDS ORDERED: NS IV 1000 ML 1,000 ML IV SCH ×2 (15:45→16:15)
[2022-05-27 15:46] VITALS: BP_SYST 76; BP_SYST 81; BP_DIAS 58; BP_DIAS 61
[2022-05-27] MEDS ORDERED: NS IV 500 ML 500 ML ONE (17:54)
[2022-05-27] MEDS ORDERED: CALCIUM CARBONATE 500 MG (TUMS) TAB.CHEW PO PRN (18:00)
[2022-05-27] MEDS ORDERED: ONDANSETRON 4 MG/2 ML (SDV) Z0FRAN IV PRN (18:00)
[2022-05-27] MEDS ORDERED: ACETAMINOPHEN 325 MG TABLET PO PRN (18:00)
[2022-05-27] MEDS ORDERED: ONDANSETRON 4 MG (ZOFRAN) ORAL DISSOLVE TAB PO PRN (18:00)
[2022-05-27] MEDS ORDERED: polyethylene glycoL POWDER 17 GM (MIRALAX) PACK PO PRN (18:00)
[2022-05-27] MEDS ORDERED: NS IV 500 ML 500 ML IV ONE (18:00)
[2022-05-27] MEDS: NS IV 1000 ML 1,000 ML IV SCH (18:30)
[2022-05-27 18:31] VITALS: BP 132/80
[2022-05-27 19:15] VITALS: BP 114/61
[2022-05-27] MEDS: inSUlin ASPART (NovoLOG) 1 UNIT/0.01 ML (CHARGE PER UNIT) SC SCH (21:17)
[2022-05-27 22:15] LABS: CALCIUM 8.5 MG/DL (8.5-10.1); CREATININE SERUM 2.68 MG/DL (0.60-1.30); POTASSIUM 4.2 MMOL/L (3.6-5.0)
[2022-05-28] VITALS (7 sets, daily range): BP systolic 93–174; BP diastolic 44–77
[2022-05-28] MEDS: NS IV 1000 ML 1,000 ML IV SCH ×4 (01:09→22:21)
[2022-05-28 05:47] LABS: HEMATOCRIT 38 % (40-54); HEMOGLOBIN 12.6 g/dL (13.3-17.7); MEAN CORPUSCULAR HEMOGLOBIN 30 pg (25-34); MEAN CORPUSCULAR HGB CONC 33 g/dL (32-36); MEAN CORPUSCULAR VOLUME 90 fL (80-99); MEAN PLATELET VOLUME 11.2 fL (9.0-12.2); PLATELET COUNT 224 10^3/uL (130-400); WHITE BLOOD COUNT 16.6 10^3/uL (4.3-11.0)
[2022-05-28 06:16] LABS: POTASSIUM 4.2 MMOL/L (3.6-5.0)
[2022-05-28 06:18] LABS: CALCIUM 8.4 MG/DL (8.5-10.1)
[2022-05-28 06:22] LABS: CREATININE SERUM 1.47 MG/DL (0.60-1.30)
[2022-05-28] MEDS: inSUlin ASPART (NovoLOG) 1 UNIT/0.01 ML (CHARGE PER UNIT) SC SCH ×4 (06:36→21:11)
--- NOTE | 2022-05-28 10:35 | Physical Therapy Evaluation ---
PT Evaluation-General Medical Diagnosis Admission Date May 27, 2022 at 16:23 Medical Diagnosis: acute kidney injury Onset Date: May 27, 2022 Therapy Diagnosis Therapy Diagnosis: generalized weakness/debility Height/Weight Height (Feet): 5 Height (Inches): 6.00 Weight (Pounds): 157 Weight (Ounces): 5.0 Precautions Precautions/Isolations: Fall Prevention, Standard Precautions Referral Physician: Philip Reason for Referral: Evaluation/Treatment Medical History Pertinent Medical History: COPD, DM, HTN, Parkinson's, Smoking Additional Medical History Covid Current History ER secondary to dizziness and falls (hypotensive/bradycardia) Reviewed History: Yes Social History Home: Single Level Current Living Status: Children Entry Into Home: Stairs With Railing PT Steps Into Home: 4 Prior Prior Level of Function SCALE: Activities may be completed with or without assistive devices. 6-Gwlsuftugq-vskrfdp completes the activity by him/herself with no assistance from a helper. 5-Set-up or Clean-up Assistance-helper sets up or cleans up; patient completes activity. [place] assists only prior to or following the activity. 4-Supervision or Touching Assistance-helper provides verbal cues and/or touching/steadying and/or contact guard assistance as patient completes activity. Assistance may be provided throughout the activity or intermittently. 3-Partial/Moderate Assistance-helper does LESS THAN HALF the effort. Strong lifts, holds or supports trunk or limbs, but provides less than half the effort. 2-Substantial/Maximal Assistance-helper does MORE THAN HALF the effort. Strong lifts or holds trunk or limbs and provides more than half the effort. 3-Bhddfjtwq-rjvwov does ALL the effort. Patient does none of the effort to complete the activity. Or, the assistance of 2 or more helpers is required for the patient to complete the activity. If activity was not attempted, code reason: 7-Patient Refused. 9-Not Applicable-not attempted and the patient did not perform the activity before the current illness, exacerbation or injury. 10-Not Attempted due to Environmental Limitations-(lack of equipment, weather restraints, etc.). 88-Not Attempted due to Medical Conditions or Safety Concerns. Bed Mobility: 6 Transfers (B,C,W/C): 6 Gait: 6 Stairs: 6 Indoor Mobility (Ambulation): Independent Stairs: Independent Prior Devices Use: None PT Evaluation-Current Subjective Patient agrees to PT. He is very difficult to understand. Objective Patient Orientation: Person, Time, Situation ROM/Strength ROM Lower Extremities bilateral LE WFL Strength Lower Extremities 4-/5 grossly bilateral LE Integumentary/Posture Bowel Incontinence: No Bladder Incontinence: No Posture WFL Neuromuscular (Tone, Coordination, Reflexes) grossly intact Sensory Vision: Functional Hearing: Impaired Transfers Lying to Sitting/Side of Bed(Q: 4 Sit to Stand (QC): 4 Chair/Jxr-ew-Mtxfp Xfer(QC): 4 Gait Does the Patient Walk?: Yes Mode of Locomotion: Walk Anticipated Mode of Locomotion: Walk Walk 10 feet (QC): 4 Walk 50 ft with 2 Turns(QC): 4 Walk 150 ft (QC): 4 Distance: 250' Gait Assistive Device: FWW Comments/Gait Description safe and functional with no deviation/CGA for safety Balance Sitting Static: Normal Sitting Dynamic: Normal Standing Static: Fair Standing Dynamic: Fair Assessment/Needs 67 y.o. male, will benefit from skilled PT to address functional strength and mobility to improve current LOF. Rehab Potential: Fair PT Correction Goals Paperhanger Pipe Goals PT Paperhanger Pipe Goals Time Frame: Jun 05, 2022 Roll Left & Right (QC): 6 Sit to Lying (QC): 6 Lying-Sitting on Side/Bed(QC): 6 Sit to Stand (QC): 6 Chair/Hdl-az-Fhvum Xfer(QC): 6 Toilet Transfer (QC): 6 Walk 10 feet (QC): 5 Walk 50ft with 2 Turns (QC): 5 Walk 150 ft (QC): 5 PT Plan Problem List Problem List: Activity Tolerance, Functional Strength, Safety, Balance, Gait, Transfer, Bed Mobility Treatment/Plan Treatment Plan: Continue Plan of Care Treatment Plan: Bed Mobility, Education, Functional Activity Dick, Functional Strength, Gait, Safety, Therapeutic Exercise, Transfers Treatment Duration: Jun 05, 2022 Frequency: 6 times per week Estimated Hrs Per Day: .25 hour per day Time/GCodes Time In: 845 Time Out: 900 Total Billed Treatment Time: 15 Total Billed Treatment 1 visit EVModC 15 min HANH CRANE PT May 28, 2022 10:35
[2022-05-28] MEDS ORDERED: DULO60CA59 PO (10:44)
[2022-05-28] MEDS ORDERED: ASPI-1238 PO (10:44)
[2022-05-28] MEDS ORDERED: DIVA500T15 PO (10:44)
[2022-05-28] MEDS ORDERED: ATOR80TA76 PO (10:44)
[2022-05-28] MEDS ORDERED: GABA300C PO (10:44)
[2022-05-28] MEDS ORDERED: CARB1TAB30 PO (10:45)
--- NOTE | 2022-05-28 12:10 | Occupational Therapy Eval ---
OT Evaluation-General/PLF Medical Diagnosis Admission Date May 27, 2022 at 16:23 Medical Diagnosis: acute kidney injury Onset Date: May 27, 2022 Therapy Diagnosis Therapy Diagnosis: n/a Height/Weight Height (Feet): 5 Height (Inches): 6.00 Weight (Pounds): 157 Weight (Ounces): 5.0 Precautions Precautions/Isolations: Fall Prevention, Standard Precautions Referral Physician: Philip Referral Reason: Evaluation/Treatment Medical History Pertinent Medical History: COPD, DM, HTN, Parkinson's, Smoking Current History Pt presents to hospital with c/o increased dizziness and falls. Found to be hypotensive and bradycardic. Per patient, he lives with daughter in a single story home. He was indep with adls and his daughter performs all iadls. Pt uses a walker at baseline. Reviewed History: Yes Social History Home: Single Level Current Living Status: Children Entry Into Home: Stairs With Railing Steps Into Home: 4 ADL-Prior Level of Function SCALE: Activities may be completed with or without assistive devices. 8-Qfpbviwrvs-glcgzlg completes the activity by him/herself with no assistance from a helper. 5-Set-up or Clean-up Assistance-helper sets up or cleans up; patient completes activity. [place] assists only prior to or following the activity. 4-Supervision or Touching Assistance-helper provides verbal cues and/or touching/steadying and/or contact guard assistance as patient completes activity. Assistance may be provided throughout the activity or intermittently. 3-Partial/Moderate Assistance-helper does LESS THAN HALF the effort. [place] lifts, holds or supports trunk or limbs, but provides less than half the effort. 2-Substantial/Maximal Assistance-helper does MORE THAN HALF the effort. [place] lifts or holds trunk or limbs and provides more than half the effort. 0-Gwhqrwukm-vulrox does ALL the effort. Patient does none of the effort to complete the activity. Or, the assistance of 2 or more helpers is required for the patient to complete the activity. If activity was not attempted, code reason: 7-Patient Refused. 9-Not Applicable-not attempted and the patient did not perform the activity before the current illness, exacerbation or injury. 10-Not Attempted due to Environmental Limitations-(lack of equipment, weather restraints, etc.). 88-Not Attempted due to Medical Conditions or Safety Concerns. Self Care: Independent Functional Cognition: Needed Some Help DME/Equipment: Grab Bars, Tub/Shower OT Current Status Subjective Pt reports chronic pain in R hip Appearance Pt returned to sitting in recliner, all needs within reach at OT departure. Mental Status/Objective Patient Orientation: Person, Place, Situation Attachments: IV, Telemetry Current Hand Dominance: Left Upper Extremity ROM WNL Upper Extremity Strength WFL ADL-Treatment Lower Body Dressing (QC): 5 On/Off Footwear (QC): 6 Toileting Hygiene (QC): 6 Pt sitting in recliner at OT arrival. Able to don/doff socks and underwear over feet without difficulty. He stood and pulled clothing over hips with supervision. No c/o dizziness while standing. He ambulated to/from bathroom with walker and SBA for management of IV pole. Pt able to complete transfer and all steps of toileting without assistance. He declines any self care concerns at this time. OT will discharge. Education OT Patient Education: Purpose of tx/functional activities Teaching Recipient: Patient Teaching Methods: Discussion Response to Teaching: Verbalize Understanding, Return Demonstration OT Component Prep Operator Goals Usp Goals 1=Demonstrate adherence to instructed precautions during ADL tasks. 2=Patient will verbalize/demonstrate understanding of assistive devices/modifications for ADL. 3=Patient will improve strength/tolerance for activity to enable patient to perform ADL's. OT Education/Plan Problem List/Assessment Assessment: No Skilled OT Needs ID'd Discharge Recommendations Plan/Recommendations: Discontinue OT Therapy Discharge Recommendati: Home & Family Treatment Plan/Plan of Care Treatment,Training & Education: Yes Patient would benefit from OT for education, treatment and training to promote independence in ADL's, mobility, safety and/or upper extremity function for ADL's. Plan of Care: ADL Retraining, Functional Mobility Treatment Duration: May 28, 2022 Frequency: 1 time per week Estimated Hrs Per Day: .25 hour per day Agreement: Yes Rehab Potential: Fair Time/GCodes Start Time: 11:51 Stop Time: 12:04 Total Time Billed (hr/min): 13 Billed Treatment Time 1 visit Sherry Calero OT May 28, 2022 12:09
--- NOTE | 2022-05-28 14:42 | History & Physical ---
BETTIE BOWERS 05/28/22 1442: HPI History of Present Illness: Patient is a 67 year old male with a past medical history of T2DM, HTN, HLD who presented to [facility] ER with a chief complaint of dizziness and frequent falls. Patient states that these issues began one day ago. States the dizziness comes on when he goes from lying to sitting or sitting to standing. Patient reports multiple falls. Does state he has hit his head a couple of times. Denies LOC. Denies current PICKARD. Patient does state that nothing seemed to help his dizziness once he started, but time. Patient denies ever feeling overheated, but does feel that he did get very dehydrated. Patient was having some trouble recalling some of his H+P and his past medical history. Unsure of patients full past medical, surgical, and family history. Unsure of patient's baseline mental status. Queenie t also unable to recall why he takes some of his home medications. Patient states he is , but lives at home with his daughter. Source: patient Date seen by provider: May 28, 2022 Time Seen by Provider: 07:50 Attending Physician [facility] PCP Admitting Physician: Pepper Graham MD Attending Physician: Pepper Graham MD Consult Date of Admission May 27, 2022 at 16:23 Home Medications Home Medications Reviewed patient Home Medication Reconciliation performed by pharmacy medication reconciliations mosaic technician and/or nursing. Patients Allergies have been reviewed. Allergies Coded Allergies: NKANo Known Allergies (Verified Allergy, Unknown, 05/27/22) VAU-Xkcnnr-Rqogij Hx Patient Social History Marrital Status: Employed/Student: retired Drug of Choice: MARIJUANA Smoking Status: Current Everyday Smoker (states 1/2 PPD for as long as he can remember to me) 2nd Hand Smoke Exposure: No Recent Hopitalizations: No Sexual Abuse: No (Denies use to me currently) Alcohol Use?: Yes Substance type: Marijuana Tobacco type used: Cigarettes Immunizations Up To Date Tetanus Booster (TDap): Unknown Past Medical History Testicular Cancer Type II Diabetes Arthritis HTN Depression Tobacco Abuse THC Abuse CAD of [place] Vessel Hyperlipidemia Cervical stenosis Parkinson's Disease Diabetic Neuropathy Chronic Pain Surgical Hx: Cholecystectomy Orchiectomy (r) Full Dental Extraction Appendectomy - 1968 Carpal Tunnel Release - 2016 Family Medical History Significant Family History: Heart Disease, CAD Over 55 Years Old, Diabetes, Hypertension Other Significan Family Hx: SOCIAL HISTORY: -ETOH--REGULAR USE -DRUGS---REGULAR MARIJUANA USE, ALSO TESTED + FOR AMPHETAMINES/METHAMPHETAMINES IN PAST -SMOKES 1 1/2-2 PPD ADDITIONAL PAST SURGICAL HISTORY: -LUMBAR LAMINECTOMY L4-L5 AND L5-S1 Family History: Patient reports no known family medical history. Review of Systems ([facility]) Constitutional: No chills, No diaphoresis, No dizziness (denies current dizziness), No fever Respiratory: No cough, No dyspnea on exertion Cardiovascular: No chest pain, No palpitations Gastrointestinal: No abdominal pain; diarrhea (states one episode of diarrhea last night, unsure if it is still occuring), nausea; No vomiting Physical Exam-([facility]) Physical Exam Vital Signs VS - Last 72 Hours, by Label 05/27/22 05/27/22 05/27/22 05/27/22 14:43 15:46 17:57 18:31 Temp 35.8 35.9 Pulse 49 49 54 58 65 Resp 16 18 18 B/P (MAP) 94/55 (68) 81/58 (66) 100/56 132/80 (97) 76/61 (66) Pulse Ox 100 97 98 O2 Delivery Room Air 05/27/22 05/27/22 05/27/22 05/27/22 19:15 19:15 19:35 20:00 Temp 36.5 Pulse 81 60 Resp 20 B/P (MAP) 114/61 (78) Pulse Ox 94 O2 Delivery Room Air Room Air Room Air 05/28/22 05/28/22 05/28/22 05/28/22 00:01 01:00 03:53 07:00 Temp 36.4 36.5 Pulse 62 53 55 46 Resp 18 18 B/P (MAP) 93/44 (60) 172/74 (106) Pulse Ox 93 92 O2 Delivery Room Air Room Air 05/28/22 05/28/22 05/28/22 05/28/22 08:00 08:15 11:27 12:53 Temp 36.4 36.4 Pulse 54 56 42 Resp 18 19 B/P (MAP) 162/64 (96) 142/61 (88) Pulse Ox 99 99 98 O2 Delivery Room Air Room Air Room Air Capillary Refill : Less Than 3 Seconds General Appearance: WD/WN, no apparent distress HEENT: PERRL/EOMI Respiratory: lungs clear, normal breath sounds, no respiratory distress, no accessory muscle use Cardiovascular: regular rate, rhythm, no murmur Gastrointestinal: normal bowel sounds, non tender, soft Rectal: deferred Extremities: no pedal edema, no calf tenderness Neurologic/Psychiatric: alert, normal mood/affect, oriented x 3 (Oriented X3 for me in the AM; with Dr. Graham he was only A+Ox2. Became unsure of month. Unsure of baseline) Skin: normal color, warm/dry Assessment/Plan Assessment/Plan Admission Dx PINA Dehydration Assessment & Plan Acute Kidney Injury Dehydration Hypotension Dizziness * Patient also has has multiple sedative medications on his home list and bradycardia * Symptoms likely synergistic, but, most likely scenario seems to be decreased fluid status leading to pre-renal azotemia snowballing into patient's presentation on admission * Will continue to monitor and see how symptoms resolve/persist. * Patient's BUN 52 on presentation, Cr 4.05. * On repeats both BUN and Cr have been trending down, currently BUN 40 + Cr 1.47 * 2.5L of NS given in the ER * Currently maintained on 125ml/hr * Renally dose all medications * Avoid nephrotoxic agents and hypotension Bradycardia * Unsure if 2/2 above, chronic, or new acute issue * Also very hard to tell if this issue is symptomatic at this time, due to patient's current clinical status * On EKG patient had RBBB * Unsure of patient's cardiac history * Avoid hypotension and continue to monitor * If no resolution or worsening status consider further cardiac workup T2DM * Insulin sliding scale HTN * Patient had hypotension on presentation * If patient begins having persistent elevated BP levels will start an antihypertensive agent * Acei, ARB, B-blockers, and CCB contraindicated at this time due to PINA and bradycardia HLD * Holding home statin for now * Resume upon PINA resolution or consider switching to atorvastatin DVT prophylaxis * Heparin 5,000 Q8h PEPPER GRAHAM MD 05/28/22 1525: Home Medications Allergies Coded Allergies: NKANo Known Allergies (Verified Allergy, Unknown, 05/27/22) [id number] Hx Family Medical History Family History: Patient reports no known family medical history. Assessment/Plan Assessment/Plan Admission Status: Inpatient Order (span 2 midnights) Reason for Inpatient Admission: Severe PINA requiring more than one night to correct Supervisory-Addendum Brief Verification & Attestation Participated in pt care: history, MDM, physical Personally performed: exam, history, MDM, supervision of care Care discussed with: Medical Student Procedures: n/a I personally saw and examined patient and did my own history and exam which confirm that documented by the medical student. I also did a CN exam that was normal except decreased hearing bilaterally, he has equal movement in upper and lower extremities and 5/5 strength in both legs. I directed the plan of care as documented by the medical student. BETTIE BOWERS May 28, 2022 14:42 PEPPER GRAHAM MD May 28, 2022 15:25
[2022-05-28] MEDS ORDERED: NON-FORMULARY MEDICATION 1 EA EA (Duloxetine HCl 60 MG) PO SCH (21:00)
[2022-05-28] MEDS ORDERED: NON-FORMULARY MEDICATION 1 EA EA (Divalproex Sodium (Divalproex Sodium ER) 1,000 MG) PO SCH (21:00)
[2022-05-28] MEDS ORDERED: DIVALPROEX EXT RELEASE 250 MG (DEPAKOTE ER) TAB PO SCH (21:00)
[2022-05-28] MEDS: DULoxetine 30 MG (CYMBALTA) CAP PO SCH (21:09)
[2022-05-29 03:39] VITALS: BP 168/76
[2022-05-29 06:05] LABS: HEMATOCRIT 36 % (40-54); MEAN CORPUSCULAR HEMOGLOBIN 30 pg (25-34); MEAN CORPUSCULAR HGB CONC 33 g/dL (32-36); MEAN CORPUSCULAR VOLUME 89 fL (80-99); MEAN PLATELET VOLUME 11.8 fL (9.0-12.2); PLATELET COUNT 215 10^3/uL (130-400); WHITE BLOOD COUNT 13.2 10^3/uL (4.3-11.0)
[2022-05-29] MEDS: inSUlin ASPART (NovoLOG) 1 UNIT/0.01 ML (CHARGE PER UNIT) SC SCH ×3 (06:09→15:35)
[2022-05-29] MEDS: NS IV 1000 ML 1,000 ML IV SCH (06:23)
[2022-05-29 06:35] LABS: POTASSIUM 4.1 MMOL/L (3.6-5.0)
[2022-05-29 06:36] LABS: CALCIUM 8.6 MG/DL (8.5-10.1)
[2022-05-29 06:41] LABS: CREATININE SERUM 0.64 MG/DL (0.60-1.30)
[2022-05-29 08:00] VITALS: BP 159/73
[2022-05-29] MEDS: DULoxetine 30 MG (CYMBALTA) CAP PO SCH (08:53)
[2022-05-29] MEDS ORDERED: ASPIRIN E.C. 81 MG (ECOTRIN) TAB PO SCH (09:00)
--- NOTE | 2022-05-29 09:26 | Physical Therapy Daily Note ---
PT Daily Note-Current Subjective Patient in bed pre tx, agrees to PT, has 8/10 pain in right hip, states he has already had pain meds, would like to use the restroom. Appearance Patient in recliner post tx with nurse call, phone, tray, set up for breakfast. Mental Status Patient Orientation: Person, Place, Situation Attachments: IV Transfers SCALE: Activities may be completed with or without assistive devices. 2-Jqxbbomkzi-eccpoor completes the activity by him/herself with no assistance from a helper. 5-Set-up or Clean-up Assistance-helper sets up or cleans up; patient completes activity. [place] assists only prior to or following the activity. 4-Supervision or Touching Assistance-helper provides verbal cues and/or touching/steadying and/or contact guard assistance as patient completes activity. Assistance may be provided throughout the activity or intermittently. 3-Partial/Moderate Assistance-helper does LESS THAN HALF the effort. [place] lifts, holds or supports trunk or limbs, but provides less than half the effort. 2-Substantial/Maximal Assistance-helper does MORE THAN HALF the effort. [place] lifts or holds trunk or limbs and provides more than half the effort. 5-Gvkgqjlod-igrxri does ALL the effort. Patient does none of the effort to complete the activity. Or, the assistance of 2 or more helpers is required for the patient to complete the activity. If activity was not attempted, code reason: 7-Patient Refused. 9-Not Applicable-not attempted and the patient did not perform the activity before the current illness, exacerbation or injury. 10-Not Attempted due to Environmental Limitations-(lack of equipment, weather restraints, etc.). 88-Not Attempted due to Medical Conditions or Safety Concerns. Roll Left & Right (QC): 6 Lying to Sitting/Side of Bed(Q: 6 Sit to Stand (QC): 4 Chair/Wub-vg-Bgtga Xfer(QC): 4 Patient ambulates into the restroom from the bed with CGA, has a BM, doesn't need any help. Gait Training Distance: 300' Walk 10 feet (QC): 4 Walk 50 ft with 2 Turns(QC): 4 Walk 150 ft (QC): 4 Gait Persons Needed: 1 Gait Assistive Device: FWW CGA, has moments of unsteadiness but no LOB Treatments toileting, ambulation Assessment Current Status: Fair Progress improving endurance but unsteady with ambulation PT Skilled Nursing Goals Puncher And Fastener Goals PT Skilled Nursing Goals Time Frame: Jun 05, 2022 Roll Left & Right (QC): 6 Sit to Lying (QC): 6 Lying-Sitting on Side/Bed(QC): 6 Sit to Stand (QC): 6 Chair/Whc-rc-Sxwtp Xfer(QC): 6 Toilet Transfer (QC): 6 Walk 10 feet (QC): 5 Walk 50ft with 2 Turns (QC): 5 Walk 150 ft (QC): 5 PT Plan Problem List Problem List: Activity Tolerance, Functional Strength, Safety, Balance, Gait, Transfer, Bed Mobility, ROM Treatment/Plan Treatment Plan: Continue Plan of Care Treatment Plan: Bed Mobility, Education, Functional Activity Dick, Functional Strength, Gait, Safety, Therapeutic Exercise, Transfers Treatment Duration: Jun 05, 2022 Frequency: 6 times per week Estimated Hrs Per Day: .25 hour per day Safety Risks/Education Patient Education: Gait Training, Transfer Techniques, Correct Positioning, S afety Issues Teaching Recipient: Patient Teaching Methods: Demonstration, Discussion Response to Teaching: Reinforcement Needed Time/GCodes Time In: 901 Time Out: 917 Total Billed Treatment Time: 16 Total Billed Treatment 1 visit GT 16' CASA MORENO PT May 29, 2022 09:26
[2022-05-29 11:30] VITALS: BP 172/84
--- NOTE | 2022-05-29 12:46 | Discharge Summary ---
Diagnosis/Chief Complaint Date of Admission May 27, 2022 at 16:23 Date of Discharge Primary Care Aristeo Boothe Discharge Summary Discharge Physical Exam Allergies: Coded Allergies: NKANo Known Allergies (Verified Allergy, Unknown, 05/27/22) Vitals & I&Os Vital Signs Date Time Temp Pulse Resp B/P (MAP) Pulse Ox O2 Delivery O2 Flow Rate FiO2 05/29/22 11:30 36.5 52 20 172/84 (113) 100 Room Air General Appearance: No Apparent Distress Respiratory: Chest Non Tender, Lungs Clear, Normal Breath Sounds, No Accessory Muscle Use, No Respiratory Distress Cardiovascular: Regular Rate, Rhythm, No Gallop, No Murmur, Bradycardia Gastrointestinal: Normal Bowel Sounds, No Organomegaly, No Pulsatile Mass, Non Tender, Soft Hospital Course Was the Problem List Reviewed?: Yes Patient is a 67 year old male with a past medical history of T2DM, HTN, HLD who presented to [facility] ER with a chief complaint of dizziness and frequent falls. Patient states that these issues began one day ago. States the dizziness comes on when he goes from lying to sitting or sitting to standing. Patient reports multiple falls. Does state he has hit his head a couple of times. Denies LOC. Denies current PICKARD. Patient does state that nothing seemed to help his dizziness once he started, but time. Patient denies ever feeling overheated, but does feel that he did get very dehydrated. Patient was having some trouble recalling some of his H+P and his past medical history. Unsure of patients full past medical, surgical, and family history. Unsure of patient's baseline mental status. Patient also unable to recall why he takes some of his home medications. Patient states he is , but lives at home with his daughter.IV fluids were initiated and admission creatinine around 2.6 return to likely normal baseline 0.7 on the day of his discharge. Elevated white count resolved without any obvious evidence for infection. Despite the fact that antihypertensive medications which include 20 mg of lisinopril and carvedilol 6.25 mg twice daily patient remained bradycardic albeit without symptoms predominantly in the low 50s at rest. He was able to ambulate independently with using a walker with no loss of balance for physical therapy. Considering reported Parkinson's disease in addition to dehydration and very well may have orthostatic hypotension aggravated by Parkinson's. Off of antihypertensive medication on IV fluids with rehydration blood pressure was in the 150 systolic range over 80s setting. We will continue to hold blood pressure medication and advocate only treating standing hypertension with resumption of lisinopril current heart rate precludes initiation of any rate lowering class of medication. He was advised to follow- up with his primary care provider in the next week. Discussed the importance of increased fluids and not getting up quickly especially after meals. Labs (last 24 hrs) Laboratory Tests 05/28/22 15:32: Glucometer 77 05/28/22 20:06: Glucometer 90 05/29/22 05:37: Glucometer 90 05/29/22 05:42: White Blood Count 13.2H, Red Blood Count 4.05L, Hemoglobin 12.0L, Hematocrit 36L , Mean Corpuscular Volume 89, Mean Corpuscular Hemoglobin 30, Mean Corpuscular Hemoglobin Concent 33, Red Cell Distribution Width 14.5, Platelet Count 215, Mean Platelet Volume 11.8, Sodium Level 140, Potassium Level 4.1, Chloride Level 108H, Carbon Dioxide Level 22, Anion Gap 10, Blood Urea Nitrogen 17, Creatinine 0.64, Estimat Glomerular Filtration Rate 103, BUN/Creatinine Ratio 27, Glucose Level 101, Calcium Level 8.6 05/29/22 10:25: Glucometer 96 Microbiology 05/27/22 Urine Culture - Preliminary, Resulted Lactobacillus species Patient resulted labs reviewed. Pending Labs Laboratory Tests 05/29/22 05:37: Glucometer 90 05/29/22 05:42: White Blood Count 13.2, Red Blood Count 4.05, Hemoglobin 12.0, Hematocrit 36, Mean Corpuscular Volume 89, Mean Corpuscular Hemoglobin 30, Mean Corpuscular Hemoglobin Concent 33, Red Cell Distribution Width 14.5, Platelet Count 215, Mean Platelet Volume 11.8, Sodium Level 140, Potassium Level 4.1, Chloride Level 108, Carbon Dioxide Level 22, Anion Gap 10, Blood Urea Nitrogen 17, Creatinine 0.64, Estimat Glomerular Filtration Rate 103, BUN/Creatinine Ratio 27, Glucose Level 101, Calcium Level 8.6 05/29/22 10:25: Glucometer 96 Discussion & Recommendations Discharge Planning: >30 minutes discharge planning Discharge Home Medications: Active Scripts Active Reported Carbidopa-Levodopa 10-100 Tab (Carbidopa/Levodopa) 10 Mg-100 Mg Tablet 1 Each PO TID Aspirin EC (Aspirin) 81 Mg Tablet.dr 81 Mg PO DAILY Neurontin (Gabapentin) 300 Mg Capsule 600 Mg PO TID TAKES 2 (300MG) CAPS Atorvastatin Calcium 80 Mg Tablet 80 Mg PO HS Duloxetine HCl 60 Mg Capsule.dr 60 Mg PO BID Divalproex Sodium ER (Divalproex Sodium) 500 Mg Tab.er.24h 1,000 Mg PO HS TAKES 2 (500MG) TABS Meloxicam 7.5 Mg Tablet 7.5 Mg PO BID Baclofen 10 Mg Tablet 10 Mg PO TID Metformin HCl ER (Metformin HCl) 500 Mg Tab.er.24h 500 Mg PO BID Lisinopril 20 Mg Tablet 20 Mg PO DAILY Carvedilol 6.25 Mg Tablet 6.25 Mg PO BID Instructions to patient/family Please see electronic discharge instructions given to patient. GRACIELA CABAN MD May 29, 2022 12:46
[2022-05-29 12:49] VITALS: BP_SYST 152; BP_SYST 161; BP_SYST 162; BP_DIAS 65; BP_DIAS 72; BP_DIAS 77
[2022-05-29 16:00] VITALS: BP 170/80
== END 2022-05-29 19:35 | disposition home or self-care (01) | DRG 684 ==
LOC: EDUNIT# 14:26 → ER 14:27 → 4TH 16:23
PROVIDERS: ADMIT Family Medicine; ATTEND Internal Medicine
DX: N17.9 Acute kidney failure, unspecified (principal); F17.210 Nicotine dependence, cigarettes, uncomplicated; J44.9 Chronic obstructive pulmonary disease, unspecified; I10 Essential (primary) hypertension; G20 Parkinson's disease; K58.9 Irritable bowel syndrome, unspecified; G89.29 Other chronic pain; M54.9 Dorsalgia, unspecified; M54.2 Cervicalgia; F41.9 Anxiety disorder, unspecified; F43.10 Post-traumatic stress disorder, unspecified; F60.9 Personality disorder, unspecified; F32.A Depression, unspecified; E86.0 Dehydration; R00.1 Bradycardia, unspecified; I95.9 Hypotension, unspecified; F19.10 Other psychoactive substance abuse, uncomplicated; E78.5 Hyperlipidemia, unspecified; I25.10 Atherosclerotic heart disease of native coronary artery without angina pectoris; E11.40 Type 2 diabetes mellitus with diabetic neuropathy, unspecified; E86.1 Hypovolemia; Z20.822 Contact with and (suspected) exposure to COVID-19
CPT/HCPCS: 36415; 80048; 80053; 80164; 80306; 80320; 81000; 82947; 83735; 85007; 85027; 86141; 87077; 87088; 87636; 93005; 93041

== ENCOUNTER → 2022-06-17 | Outpatient (CLI) | payer MEDICARE, MEDICAID ==
[~2022-06-17] MED LIST changes: +ASPI-1238 PO; +ATOR80TA76 PO; +DULO60CA59 PO; +GABA300C PO
--- NOTE | 2022-06-17 13:00 | Diagnostic Imaging Report ---
PROCEDURE: MRI right joint lower extremity without contrast. TECHNIQUE: Multiplanar, multisequence non contrast-enhanced MRI of the right lower extremity was accomplished. INDICATION: Chronic right hip pain. COMPARISON: Radiographs from 10/19/2021. FINDINGS: No acute fracture is seen in the pelvis or right hip. There is serpiginous sclerotic lesion in the subcortical right femoral head, consistent with osteonecrosis. This involves a small portion of the articular surface, less than 20%. There is no evidence of articular surface collapse. No significant edema is seen in the femoral heads or necks. There is no significant joint effusion. There is mild degenerative change in the right hip. The right acetabular labrum is suboptimally evaluated without intra-articular contrast but there does appear to be degeneration of the superior labrum. No paralabral cyst is seen. The right iliopsoas tendon is intact. The gluteus medius and minimus tendons are intact. The hamstring tendon origin is intact. No iliopsoas or greater trochanteric bursitis is seen. No focal muscular atrophy is seen. No soft tissue masses or fluid collections are seen. No free fluid is seen in the pelvis. No lymphadenopathy is seen. IMPRESSION: 1. Osteonecrosis of the right femoral head with no articular surface collapse or acute fracture seen in the right hip. 2. Degenerative changes in the right hip. Dictated by: Dictated on workstation # [id number]
== END ==
LOC: RAD 09:43
PROVIDERS: ATTEND Orthopaedic Surgery
DX: M87.851 Other osteonecrosis, right femur (principal)
CPT/HCPCS: 73721

== ENCOUNTER → 2022-07-08 | Outpatient (CLI) | payer MEDICARE, MEDICAID | LOC: ORTHO 10:00 | PROVIDERS: ATTEND Orthopaedic Surgery | DX: M87.88 Other osteonecrosis, other site (principal) | CPT/HCPCS: 99213 ==

== ENCOUNTER → 2022-07-12 | Outpatient (CLI) | payer MEDICARE, MEDICAID | END | disposition home or self-care (01) | LOC: PREOP 05:33 | PROVIDERS: ATTEND Orthopaedic Surgery | DX: Z01.818 Encounter for other preprocedural examination (principal) ==

== ENCOUNTER 2022-07-19 09:31 | Day surgery (SDC) | payer MEDICARE, MEDICAID ==
[~2022-07-19] VITALS: Ht 165.1 cm; Wt 74.8 kg
[2022-07-19] VITALS (9 sets, daily range): BP systolic 126–176; BP diastolic 67–89
[2022-07-19] MEDS ORDERED: LACTATED RINGERS 1,000 ML IV PRN (10:30)
[2022-07-19] MEDS ORDERED: LISI20TA26 PO (10:53)
[2022-07-19] MEDS ORDERED: CARV6.25 PO (10:53)
[2022-07-19] MEDS ORDERED: MELA1TAB27 PO (10:53)
[2022-07-19] MEDS ORDERED: ceFAZolin INJECTION 1,000 MG ONE (11:22)
[2022-07-19] MEDS ORDERED: ceFAZolin INJECTION 1,000 MG VIAL IV ONE (11:30)
[2022-07-19] MEDS ORDERED: ONDANSETRON 4 MG/2 ML (SDV) Z0FRAN ONE (11:50)
[2022-07-19] MEDS ORDERED: proPOfol 200 MG/20 ML (DIPRIVAN) VIAL IV ONE (11:50)
[2022-07-19] MEDS ORDERED: LIDOCAINE PF 2% 5 ML (XYLOCAINE) VIAL ONE (11:50)
[2022-07-19] MEDS ORDERED: MIDAZOLAM 2 MG/2 ML (VERSED) VIAL ONE (11:51)
[2022-07-19] MEDS ORDERED: fentaNYL INJ 100 MCG/2 ML AMP ONE (11:51)
--- NOTE | 2022-07-19 12:24 | Progress Note-Pre Operative ---
Pre-Operative Progress Note Date of Available H&P: Jul 08, 2022 Date H&P Reviewed: Jul 19, 2022 Time H&P Reviewed: 12:15 History & Physical: H&P Reviewed, Patient Examed, No changes noted Pre-Operative Diagnosis: Right Hip Avascular Necrosis ANJELICA MOFFETT MD Jul 19, 2022 12:24
[2022-07-19] MEDS ORDERED: GLYCOPYRROLATE 0.2 MG/ML (ROBINUL) 2 ML VIAL ONE (12:38)
--- NOTE | 2022-07-19 13:18 | Operative Report - Ortho ---
Operative Report Surgeon (s)/Water Inspector (s) Surgeon ANJELICA MOFFETT MD Water Inspector n/a Pre-Operative Diagnosis Right Hip Avascular Necrosis Post-Operative Diagnosis same Operative Report Date of Procedure: Jul 19, 2022 Name of Procedure Performed: Right Hip Core Decompression Description & Findings After obtaining informed consent and marking the patient in the preoperative holding area, the patient was administered IV antibiotics and taken to the operating room. Anesthesia was induced. Patient was transferred to the fracture table. Surgical timeout was taken. The right lower extremity was placed in the traction spar and the left was placed in the well leg spar. The right lower extremity was prepped and draped in the usual sterile fashion. Guide wire was used to plan trajectory. Incision was made over the lateral thi gh. Blunt dissection was performed down to lateral cortex of the femur. A guide wire was placed. Guide wire was placed to target the anterior and superior portions of the femoral head where the avascular necrosis was concentrated. Position of the wire was confirmed using C-arm. An eight mm reamer was then placed over the guidewire and reamed to the tip of the guidewire. Once the decompression was complete, the reamer and wire were removed. Final C arm AP and lateral images were obtained, and transferred to PACS. Incision sites were irrigated with normal saline. Closed subcutaneously with 2- 0 vicryl and skin was closed with tasha. Dressed with xeroform, 4x4s, and tape. Patient tolerated the procedure well and was stable to the recovery room. Anesthesia Type General Estimated Blood Loss Less than 25 mL Specimen(s) collected/removed None ANJELICA MOFFETT MD Jul 19, 2022 13:18
[2022-07-19] MEDS ORDERED: NS IV 1000 ML 1,000 ML IV SCH (13:30)
[2022-07-19] MEDS ORDERED: morphine INJ 4 MG/ML 1 ML (VIAL/SYRINGE) IVP PRN (13:30)
[2022-07-19] MEDS ORDERED: ONDANSETRON 4 MG/2 ML (SDV) Z0FRAN IVP PRN (13:45)
[2022-07-19] MEDS ORDERED: morphine INJ 10 MG/ML 1ML (SYR OR VIAL) IVP ONE (13:45)
[2022-07-19] MEDS ORDERED: HYDROmorphone 2 MG/ML VIAL (DILAUDID) IV ONE (13:45)
[2022-07-19] MEDS ORDERED: SEVOFLURANE (ULTANE) 15 ML INHAL SOLN ONE (13:48)
--- NOTE | 2022-07-19 13:53 | Anesthesia-General Post-Op ---
General Patient Condition Mental Status/LOC: Same as Preop Cardiovascular: Satisfactory Nausea/Vomiting: Absent Respiratory: Satisfactory Pain: Controlled Complications: Absent Post Op Complications Complications None Follow Up Care/Instructions Patient Instructions None needed. Anesthesia/Patient Condition Patient Condition Patient is doing well in PACU, no complaints, stable vital signs, no apparent adverse anesthesia problems. No complications reported per nursing. ANTHONY PHILLIPS DO Jul 19, 2022 13:53
--- NOTE | 2022-07-19 20:05 | Diagnostic Imaging Report ---
INDICATION: Osteonecrosis of the right femoral head. Intraoperative fluoroscopy views are obtained during decompression. Four images were obtained, 53.9 seconds of fluoroscopy time was used. FINDINGS: Intraoperative views demonstrate sclerotic changes in the femoral head. Metallic device is seen overlying the femoral head for core decompression. Final images showed no residual foreign body. IMPRESSION: Intraoperative views obtained during core decompression of right femoral head. Dictated by: Dictated on workstation # [id number]
[2022-07-19] MEDS: GABAPENTIN 300 MG (NEURONTIN) CAP PO SCH (20:32)
[2022-07-19] MEDS: DULoxetine 30 MG (CYMBALTA) CAP PO SCH (20:32)
[2022-07-19] MEDS: BACLOFEN 10 MG (LIORESAL) TAB PO SCH (20:33)
[2022-07-19] MEDS: MELOXICAM 7.5 MG (MOBIC) TABLET PO SCH (20:33)
[2022-07-19] MEDS ORDERED: NON-FORMULARY MEDICATION 1 EA EA (Duloxetine HCl 60 MG) PO SCH (21:00)
[2022-07-19] MEDS ORDERED: MELATONIN 3 MG TABLET PO SCH (21:00)
[2022-07-19] MEDS ORDERED: DIVALPROEX EXT RELEASE 250 MG (DEPAKOTE ER) TAB PO SCH (21:00)
[2022-07-19] MEDS ORDERED: NON-FORMULARY MEDICATION 1 EA EA (Divalproex Sodium (Divalproex Sodium ER) 1,000 MG) PO SCH (21:00)
[2022-07-20 04:07] VITALS: BP 148/69
[2022-07-20 07:55] VITALS: BP 139/73
[2022-07-20] MEDS: BACLOFEN 10 MG (LIORESAL) TAB PO SCH ×2 (08:28→12:52)
[2022-07-20] MEDS: GABAPENTIN 300 MG (NEURONTIN) CAP PO SCH ×2 (08:29→12:52)
[2022-07-20] MEDS: DULoxetine 30 MG (CYMBALTA) CAP PO SCH (08:29)
--- NOTE | 2022-07-20 08:37 | Progress Note - Ortho ---
Progress Note Subjective Date of Exam 07/20/22 Chief Complaint POD #1 Right Hip Core Decompression HPI/Events since last exam did well through the night, did get up by himself one time Review of Systems - Allergies: Coded Allergies: NKANo Known Allergies (Verified Allergy, Unknown, 07/16/22) Home Meds Reported Medications Carvedilol (Coreg) 6.25 Mg Tablet, 6.25 MG PO BID, TAB 07/19/22 Lisinopril (Lisinopril) 20 Mg Tablet, 20 MG PO DAILY, TAB 07/19/22 Melatonin/Pyridoxine HCl (B6) (Melatonin 3 mg Tablet) 3 Mg-10 Mg Tablet, 2 EACH PO HS for Insomnia, TAB 07/19/22 Carbidopa/Levodopa (Carbidopa-Levodopa 10-100 Tab) 10 Mg-100 Mg Tablet, 1 EACH PO TID, TAB 05/28/22 Aspirin (Aspirin EC) 81 Mg Tablet.dr, 81 MG PO DAILY, TAB 05/28/22 Gabapentin (Neurontin) 300 Mg Capsule, 600 MG PO TID, CAP TAKES 2 (300MG) CAPS 05/28/22 Atorvastatin Calcium (Atorvastatin Calcium) 80 Mg Tablet, 80 MG PO HS, TAB 05/28/22 Duloxetine HCl (Duloxetine HCl) 60 Mg Capsule.dr, 60 MG PO BID, CAP 05/28/22 Divalproex Sodium (Divalproex Sodium ER) 500 Mg Tab.er.24h, 1000 MG PO HS, TAB TAKES 2 (500MG) TABS 05/28/22 Meloxicam (Meloxicam) 7.5 Mg Tablet, 7.5 MG PO BID, TAB 02/06/19 Baclofen (Baclofen) 10 Mg Tablet, 10 MG PO TID, TAB 05/05/18 Metformin HCl (Metformin HCl ER) 500 Mg Tab.er.24h, 500 MG PO BID, TAB 05/05/18 Objective Exam R Hip: Incision C/D/I, +DF of ankle, no s/s of DVT Vital Signs Vital Signs Date Time Temp Pulse Resp B/P (MAP) Pulse Ox O2 Delivery O2 Flow Rate FiO2 07/20/22 07:55 36.7 50 18 139/73 (95) 96 Room Air 07/20/22 07:31 Room Air 0.00 07/20/22 04:07 36.8 58 20 148/69 (95) 97 Room Air 07/19/22 23:44 36.8 57 16 148/67 (94) 97 Room Air 07/19/22 20:35 Room Air 07/19/22 19:10 36.5 51 18 153/67 (95) 98 Room Air 07/19/22 15:39 36.4 58 20 168/75 (106) 96 Room Air 07/19/22 14:38 36.1 59 18 126/71 (89) 94 Room Air 07/19/22 14:20 Room Air 07/19/22 14:10 Room Air 07/19/22 14:10 36.1 18 155/84 (107) 95 Room Air 07/19/22 14:00 13 133/72 (92) 100 OxyMask 2.00 07/19/22 13:55 OxyMask 2.00 07/19/22 13:50 13 100 OxyMask 2.00 07/19/22 13:40 OxyMask 7.00 07/19/22 13:40 13 176/89 (118) 100 OxyMask 7.00 07/19/22 13:30 24 165/84 (111) 100 OxyMask 7.00 07/19/22 13:23 36.3 12 142/76 (98) 100 OxyMask 7.00 07/19/22 13:23 OxyMask 7.00 I & O 07/20/22 07:00 Intake Total 1392 ml Output Total 600 ml Balance 792 ml Lab Results Laboratory Tests 07/19/22 09:44: Glucometer 139H Assessment and Plan Assessment Right Hip Avascular Necrosis s/p Core Decompression of Hip Problem List Right Hip Avascular Necrosis s/p Core Decompression of Hip Plan PT Home after PT Final Diagonsis Right Hip Avascular Necrosis s/p Core Decompression of Hip Level of the visit: Level 3 (global postop) ANJELICA MOFFETT MD Jul 20, 2022 08:37
[2022-07-20] MEDS ORDERED: OXC5T PO (08:39)
[2022-07-20] MEDS ORDERED: ASPIRIN E.C. 81 MG (ECOTRIN) TAB PO SCH (09:00)
[2022-07-20] MEDS ORDERED: lisINopril 20 MG (PRINIVIL) TABLET PO SCH (09:00)
[2022-07-20] MEDS: MELOXICAM 7.5 MG (MOBIC) TABLET PO SCH (09:07)
--- NOTE | 2022-07-20 09:54 | Physical Therapy Evaluation ---
PT Evaluation-General Medical Diagnosis Admission Date July 19, 2022 Medical Diagnosis: right hip avascular necrosis Onset Date: Jul 19, 2022 Therapy Diagnosis Therapy Diagnosis: impaired mobility Height/Weight Height (Feet): 5 Height (Inches): 6.00 Weight (Pounds): 157 Weight (Ounces): 5.0 Precautions Precautions/Isolations: Fall Prevention, Standard Precautions Weight Bear Status Right Lower Extremity: Right Partial Weight Bearing Left Lower Extremity: Left Full Weight Bearing 30 to 50 pounds on right leg Patient verbally and visually instructed on PWB right LE Referral Physician: Erica Reason for Referral: Evaluation/Treatment Medical History Pertinent Medical History: COPD, DM, HTN, Parkinson's, Smoking Current History s/p right hip decompression due to avascular necrosis Reviewed History: Yes Social History Home: Single Level Current Living Status: Other Family Entry Into Home: Stairs With Railing PT Steps Into Home: 5 Prior Prior Level of Function SCALE: Activities may be completed with or without assistive devices. 0-Daexpulfob-aqvsxcn completes the activity by him/herself with no assistance from a helper. 5-Set-up or Clean-up Assistance-helper sets up or cleans up; patient completes activity. [place] assists only prior to or following the activity. 4-Supervision or Touching Assistance-helper provides verbal cues and/or touching/steadying and/or contact guard assistance as patient completes activity. Assistance may be provided throughout the activity or intermittently. 3-Partial/Moderate Assistance-helper does LESS THAN HALF the effort. [place] lifts, holds or supports trunk or limbs, but provides less than half the effort. 2-Substantial/Maximal Assistance-helper does MORE THAN HALF the effort. [place] lifts or holds trunk or limbs and provides more than half the effort. 2-Ddzuixisu-xlogrj does ALL the effort. Patient does none of the effort to complete the activity. Or, the assistance of 2 or more helpers is required for the patient to complete the activity. If activity was not attempted, code reason: 7-Patient Refused. 9-Not Applicable-not attempted and the patient did not perform the activity before the current illness, exacerbation or injury. 10-Not Attempted due to Environmental Limitations-(lack of equipment, weather restraints, etc.). 88-Not Attempted due to Medical Conditions or Safety Concerns. Bed Mobility: 6 Transfers (B,C,W/C): 6 Gait: 6 Stairs: 6 Indoor Mobility (Ambulation): Independent Stairs: Independent Prior Devices Use: Walker PT Evaluation-Current Subjective Patient agrees to PT. Objective Patient Orientation: Person, Time, Situation ROM/Strength ROM Lower Extremities bilateral LE WFL Strength Lower Extremities 4/5 grossly bilateral LE all planes Integumentary/Posture Bowel Incontinence: No Bladder Incontinence: No Posture WFL Neuromuscular (Tone, Coordination, Reflexes) grossly intact Sensory Vision: Functional Hearing: Functional Transfers Lying to Sitting/Side of Bed(Q: 6 Sit to Stand (QC): 6 Chair/Ylj-cy-Kbbud Xfer(QC): 6 Gait Mode of Locomotion: Walk Anticipated Mode of Locomotion: Walk Walk 10 feet (QC): 4 Walk 50 ft with 2 Turns(QC): 4 Walk 150 ft (QC): 4 Distance: 150' Gait Assistive Device: FWW Comments/Gait Description patient unable to maintain PWB right LE with all verbal and visual cues. Pat ient appears to place FWB bilaterally Balance Sitting Static: Normal Sitting Dynamic: Normal Standing Static: Normal Standing Dynamic: Normal Assessment/Needs Patient to dismiss to home with family on this date. PT educated and demonstrated proper PWB right LE technique several time with patient unable to demonstrate. PT continued to educate patient on importance of PWB right LE to prevent possible negative results, i.e. fracture. Patient voices understanding. RN notified of patient's inability to maintain PWB right LE. Rehab Potential: Guarded PT Plan Treatment/Plan Treatment Plan: Discontinue PT Treatment Duration: Jul 20, 2022 Frequency: 1 time per week Estimated Hrs Per Day: .25 hour per day Patient and/or Family Agrees t: Yes Discharge Recommendations Therapy Discharge Recommendati: Home & Family Time/GCodes Time In: 853 Time Out: 905 Total Billed Treatment Time: 12 Total Billed Treatment 1 visit EVMod 12 min HANH CRANE PT Jul 20, 2022 09:54
[2022-07-20 11:25] VITALS: BP 151/70
== END 2022-07-20 14:35 | disposition home or self-care (01) ==
LOC: SDC 09:31 → 4TH 14:56 → SDC 07-20 14:35
PROVIDERS: ATTEND Orthopaedic Surgery
DX: M87.051 Idiopathic aseptic necrosis of right femur (principal); F17.210 Nicotine dependence, cigarettes, uncomplicated
CPT/HCPCS: 76000; 82947; 87081; 97162; S2325

== ENCOUNTER → 2022-08-03 | Outpatient (CLI) | payer MEDICARE, MEDICAID ==
[~2022-08-03] MED LIST changes: +CARV6.25 PO; +MELA1TAB27 PO; +OXC5T PO
== END ==
LOC: ORTHO 10:00
PROVIDERS: ATTEND Orthopaedic Surgery
DX: Z47.89 Encounter for other orthopedic aftercare (principal)

== ENCOUNTER → 2022-09-02 | Outpatient (CLI) | payer MEDICARE, MEDICAID ==
--- NOTE | 2022-09-02 10:57 | Diagnostic Imaging Report ---
INDICATION: Pain. FINDINGS: The alignment is normal. There are mild degenerative changes of the right hip. There is no fracture or dislocation. Soft tissues are unremarkable. IMPRESSION: Mild degenerative changes of the right hip, otherwise unremarkable. Dictated by: Dictated on workstation # [id number]
== END ==
LOC: ORTHO 10:08
PROVIDERS: ATTEND Orthopaedic Surgery
DX: Z47.89 Encounter for other orthopedic aftercare (principal); M16.11 Unilateral primary osteoarthritis, right hip
CPT/HCPCS: 73502

== ENCOUNTER → 2022-09-16 | Outpatient (CLI) | payer MEDICARE, MEDICAID ==
--- NOTE | 2022-09-16 17:16 | Diagnostic Imaging Report ---
INDICATION: Lower back pain, sciatica. COMPARISON: 10/19/[address] dated 01/04/2021. TECHNIQUE: Three radiographs of the lumbar spine dated 09/16/2022. FINDINGS: For the sake of this examination and for consistency sake, five lumbar-type vertebral bodies are assumed. Riblets are noted on the L1 vertebral body. Mild apex left curvature of the lumbar spine. 6 mm anterolisthesis of L4 on L5, increased since the prior examination. This is associated with worsening moderate disc space height loss at L4/L5. Alignment at L5/S1 appears within normal limits, and improved since the prior examination. Postsurgical decompression at the L4/L5 level is again noted. Chronic fracture involving the L3 spinous process is again seen. Besides endplate degenerative changes, vertebral body heights are well maintained. Endplate degenerative changes are greatest and worsened at the L3/L4 and L4/L5 levels. No acute fracture. The sacroiliac joints are intact. Sclerosis is noted incidentally within the right femoral head. Surgical clips in the right upper abdomen. Significant background vascular calcifications. IMPRESSION: Developing anterolisthesis at L4 on L5 with worsening disc space height loss and endplate degenerative changes. Consideration for flexion and extension views should be considered to evaluate for abnormal translational motion at this level. Posterior decompression at the L4/L5 level. Scattered osseous degenerative changes. Sclerosis within the right femoral head, suggesting avascular necrosis. This is not optimally visualized. Dictated by: Dictated on workstation # [id number]
== END ==
LOC: RAD 13:49
PROVIDERS: ATTEND Nurse Practitioner Community Health
DX: M43.16 Spondylolisthesis, lumbar region (principal); M47.816 Spondylosis without myelopathy or radiculopathy, lumbar region; M89.9 Disorder of bone, unspecified
CPT/HCPCS: 72100

== ENCOUNTER → 2022-10-05 | Outpatient (CLI) | payer MEDICARE, MEDICAID ==
--- NOTE | 2022-10-05 10:25 | Diagnostic Imaging Report ---
CLINICAL INDICATION: Orthopedic aftercare. EXAM: X-ray of the right hip, AP and frog-leg view. COMPARISON: X-ray of the right hip dated 09/02/2022. FINDINGS AND IMPRESSION: 1: There is stable appearance of the right hip with no interval acute fracture or dislocation. 2: There are stable sclerotic changes involving the right femoral head region. The femoral head is spherical. These findings may be seen with AVN. 3: There are surgical clips seen involving the perineal region. Dictated by: Dictated on workstation # [id number]
== END ==
LOC: ORTHO 09:05
PROVIDERS: ATTEND Orthopaedic Surgery
DX: Z47.89 Encounter for other orthopedic aftercare (principal); M54.16 Radiculopathy, lumbar region
CPT/HCPCS: 73502

== ENCOUNTER → 2022-10-19 | Outpatient (CLI) | payer OTHER, MEDICAID ==
--- NOTE | 2022-10-19 18:22 | Diagnostic Imaging Report ---
PROCEDURE: MRI lumbar spine. TECHNIQUE: Multiplanar, multisequence MRI of the lumbar spine was performed without contrast. INDICATION: Chronic low back pain. COMPARISON: 09/16/2022 radiographs. MRI from 10/06/2017 FINDINGS: There is grade 1 retrolisthesis at L3-L4 and grade 1 anterolisthesis at L4-L5, appears similar to the radiographs from 09/16/2022 with a significant change when compared to the MRI from 2017. There is severe disc height loss at L4-L5 with Modic type I degenerative endplate changes. Small Schmorl's nodes are noted. There is moderate disc height loss at L3-L4 and mild at L5-S1. Vertebral body heights are preserved and no acute fracture is seen. There are postsurgical changes from prior L4 and L5 laminectomies. Soft tissues about the lumbar spine demonstrate no acute abnormality. The conus terminates in appropriate position. T12-L1: No significant disc bulge. No spinal canal or foraminal stenosis. L1-L2: No significant disc bulge. Mild facet arthropathy. No spinal canal or foraminal stenosis. L2-L3: Diffuse disc bulge with facet arthropathy and ligamentous infolding. No spinal canal stenosis. No foraminal stenosis. L3-L4: Diffuse disc bulge, facet arthropathy, ligamentous infolding. Moderate to severe spinal canal stenosis with complete effacement of the lateral recesses bilaterally. Severe bilateral foraminal stenosis. L4-L5: Anterolisthesis, diffuse disc bulge with facet arthropathy and ligamentous infolding. Moderate to severe spinal canal stenosis. Severe bilateral foraminal stenosis. L5-S1: Diffuse disc bulge and facet arthropathy. Mild spinal canal narrowing. Severe bilateral foraminal stenosis. IMPRESSION: 1. Advanced degenerative changes in the lower lumbar spine with spondylolisthesis at L3-L4 and L4-L5. 2. Moderate to severe spinal canal stenosis at L3-L4 and L4-L5. 3. Severe multilevel bilateral foraminal stenosis in the lower lumbar spine. Dictated by: Dictated on workstation # [id number]
== END ==
LOC: RAD 13:15
PROVIDERS: ATTEND Orthopaedic Surgery
DX: M46.26 Osteomyelitis of vertebra, lumbar region (principal); M48.061 Spinal stenosis, lumbar region without neurogenic claudication
CPT/HCPCS: 72148

== ENCOUNTER → 2022-10-27 | Outpatient (CLI) | payer OTHER, MEDICAID ==
--- NOTE | 2022-10-27 16:17 | Diagnostic Imaging Report ---
INDICATION: Recent fall. Hip pain. COMPARISON: 10/05/2022 FINDINGS: 2 radiographic views right hip were obtained. Again identified is sclerotic subchondral changes to the femoral head, which may be on the basis of underlying AVN. Femoral head remains normal in size and shape. There is no new acute osseous abnormalities. Femoral acetabular joint space is maintained. No unexpected radiopaque foreign bodies are seen. IMPRESSION: Stable exam of the right hip. Dictated by: Dictated on workstation # [id number]
== END ==
LOC: RAD 10:35
PROVIDERS: ATTEND Nurse Practitioner Community Health
DX: S70.01XA Contusion of right hip, initial encounter (principal); W19.XXXA Unspecified fall, initial encounter
CPT/HCPCS: 73502

== ENCOUNTER 2023-03-18 06:18 | Inpatient (IN) | payer MEDICAID, OTHER ==
[~2023-03-18] VITALS: Ht 177.8 cm; Wt 79.6 kg
[2023-03-18] MEDS ORDERED: NS IV 1000 ML 1,000 ML IV STA ×2 (06:36→07:39)
--- NOTE | 2023-03-18 06:43 | ED General ---
General Stated Complaint: AMS Source of Information: EMS Exam Limitations: Physical Impairments History of Present Illness Date Seen by Provider: Mar 18, 2023 Time Seen by Provider: 06:22 Initial Comments Patient is a 67-year-old male who presents to the emergency department by ambulance. Patient resides at [facility] is an assisted living facility. Sta ff called to report he had "swollen hands and glassy eyes". EMS reports tympanic temp of 40.6 prior to arrival. Blood sugar 241. Patient tachycardic at 115. Systolic blood pressures 135. Patient is awake, eyes open, seeming to manage his own airway. He is not following commands. He will not answer questions in any meaningful form other than saying "yes ma'am". Per review of the medical records that accompany the patient he has a history of Parkinson's and likely Parkinson's dementia as he is on olanzapine. He is diabetic on metformin. He is not in any respiratory distress. Lungs are clear. Abdomen is soft. No obvious outward signs of trauma, bruising, contusions or abrasions. Sepsis protocol initiated. Timing/Duration: Other (unknown) Severity: Severe Allergies and Home Medications Allergies Coded Allergies: SURIANo Known Allergies (Verified Allergy, Unknown, 07/16/22) Patient Home Medication List Home Medication List Reviewed: Yes Acetaminophen (Tylenol Extra Strength) 500 Mg Tablet, 1,000 MG PO Q8H PRN for PAIN-MILD (1-4), (Reported) Entered as Reported by: SANJANA RABAGO on 03/18/231554 Last Action: Held Acetylcysteine (I-Dlgtty-w-Cysteine) 600 Mg Capsule, 600 MG PO HS, (Reported) Entered as Reported by: SANJANA RABAGO on 03/18/231554 Last Action: Converted Amlodipine Besylate (Amlodipine Besylate) 10 Mg Tablet, 10 MG PO DAILY, (Reported) Entered as Reported by: SANJANA RABAGO on 03/18/231554 Last Action: Continued Aspirin (Aspirin EC) 81 Mg Tablet.dr, 81 MG PO DAILY, (Reported) Entered as Reported by: SANJANA RABAGO on 05/28/221043 Last Action: Continued Atorvastatin Calcium (Atorvastatin Calcium) 80 Mg Tablet, 80 MG PO HS, (Reported) Entered as Reported by: SANJANA RABAGO on 05/28/22 104 Last Action: Continued Baclofen (Baclofen) 10 Mg Tablet, 15 MG PO TID, (Reported) Entered as Reported by: NAT AVALOS on 05/05/18 0947 Last Action: Continued Carbidopa/Levodopa (Carbidopa-Levodopa 10-100 Tab) 10 Mg-100 Mg Tablet, 1 EACH PO TID, (Reported) Entered as Reported by: SANJANA RABAGO on 05/28/221044 Last Action: Continued Carvedilol (Carvedilol) 6.25 Mg Tablet, 12.5 MG PO BID, (Reported) Entered as Reported by: SANJANA RABAGO on 03/18/231554 Last Action: Continued Diclofenac Sodium (Diclofenac Sodium) 1 % Gel..gram., 1 APPLIC TOP BID, (Reported) Entered as Reported by: SANJANA RABAGO on 03/18/231554 Last Action: Continued Divalproex Sodium (Divalproex Sodium) 500 Mg Tablet.dr, 500 MG PO HS, (Reported) Entered as Reported by: SANJANA RABAGO on 03/18/231554 Last Action: Converted Divalproex Sodium (Divalproex Sodium) 250 Mg Tablet.dr, 250 MG PO DAILY, (Reported) Entered as Reported by: SANJANA RABAGO on 03/18/231554 Last Action: Continued Duloxetine HCl (Duloxetine HCl) 60 Mg Capsule.dr, 60 MG PO BID, (Reported) Entered as Reported by: SANJANA RABAGO on 05/28/221043 Last Action: Converted Furosemide (Furosemide) 40 Mg Tablet, 40 MG PO DAILY, (Reported) Entered as Reported by: SANJANA RABAGO on 03/18/231554 Last Action: Continued Gabapentin (Gabapentin) 600 Mg Tablet, 600 MG PO QID, (Reported) Entered as Reported by: SANJANA RABAGO on 03/18/231554 Last Action: Continued Hydrocodone/Acetaminophen (Hydrocodone-Acetamin 5-325 mg) 5 Mg-325 Mg Tablet, 1 EA PO Q6H, (Reported) Entered as Reported by: SANJANA RABAGO on 03/18/231554 Last Action: Continued Lisinopril (Lisinopril) 40 Mg Tablet, 40 MG PO DAILY, (Reported) Entered as Reported by: SANJANA RABAGO on 03/18/231554 Last Action: Continued Loperamide HCl (Imodium A-D) 2 Mg Tablet, 2-4 MG PO UD PRN for DIARRHEA, (Reported) Entered as Reported by: SANJANA RABAGO on 03/18/231554 Last Action: Converted Metformin HCl (Metformin HCl) 850 Mg Tablet, 850 MG PO BID, (Reported) Entered as Reported by: SANJANA RABAGO on 03/18/231554 Last Action: Continued Olanzapine (Olanzapine) 10 Mg Vial, 5 MG IM Q8H PRN for AGITATION,PARANOIA,MOOD, (Reported) Entered as Reported by: SANJANA RABAGO on 03/18/231554 Last Action: Converted Olanzapine (Olanzapine) 2.5 Mg Tablet, 2.5 MG PO BID, (Reported) Entered as Reported by: SANJANA RABAGO on 03/18/231554 Last Action: Continued Olanzapine (Olanzapine) 5 Mg Tablet, 5 MG PO Q8H PRN for AGITATION,PARANOIA,MOOD, (Reported) Entered as Reported by: SANJANA RABAGO on 03/18/231554 Last Action: Converted Discontinued Medications Carvedilol (Coreg) 6.25 Mg Tablet, 6.25 MG PO BID, (Reported) Discontinued Reason: No Longer Taking Entered as Reported by: Dilcia Benites on 07/19/221052 Last Action: Discontinued Divalproex Sodium (Divalproex Sodium ER) 500 Mg Tab.er.24h, 1,000 MG PO HS, (Reported) Discontinued Reason: No Longer Taking Entered as Reported by: SANJANA RABAGO on 05/28/221043 Last Action: Discontinued Gabapentin (Neurontin) 300 Mg Capsule, 600 MG PO TID, (Reported) Discontinued Reason: No Longer Taking Entered as Reported by: SANJANA RABAGO on 05/28/221043 Last Action: Discontinued Lisinopril (Lisinopril) 20 Mg Tablet, 20 MG PO DAILY, (Reported) Discontinued Reason: No Longer Taking Entered as Reported by: Dilcia Benites on 07/19/221052 Last Action: Discontinued Melatonin/Pyridoxine HCl (B6) (Melatonin 3 mg Tablet) 3 Mg-10 Mg Tablet, 2 EACH PO HS, (Reported) Discontinued Reason: No Longer Taking Entered as Reported by: Dilcia Benites on 07/19/221052 Last Action: Discontinued Meloxicam (Meloxicam) 7.5 Mg Tablet, 7.5 MG PO BID, (Reported) Discontinued Reason: No Longer Taking Entered as Reported by: ROYA COPE on 02/06/19 1332 Last Action: Discontinued Metformin HCl (Metformin HCl ER) 500 Mg Tab.er.24h, 500 MG PO BID, (Reported) Discontinued Reason: No Longer Taking Entered as Reported by: NAT AVALOS on 05/05/18 0958 Last Action: Discontinued Oxycodone Hcl (Oxyir Tablet) 5 Mg Tab, 5 MG PO Q4H PRN for PAIN-SEVERE (8-10) Discontinued Reason: No Longer Taking Prescribed by: ANJELICA MOFFETT MD on 07/20/22 0840 Last Action: Discontinued Review of Systems Review of Systems Constitutional: see HPI unable to obtain from patient due to clinical condition Past [id number]-Ypefhz Hx Immunizations Up To Date Tetanus Booster (TDap): Unknown First/Initial COVID19 Vaccinat: 2020 Second COVID19 Vaccination Edson: 2020 Third COVID19 Vaccination Date: 2020 Seasonal Allergies Seasonal Allergies: Yes Past Medical History Surgery/Hospitalization HX: pmh: dm2, htn, psych Surgeries: Yes (LT KNEE; LITHOTRIPSY; RIGHT ORCHIECTOMY; COLONOSCOPY ) Appendectomy, Gallbladder, Orthopedic, Renal, Testicular Respiratory: No COPD Cardiac: Yes Hypertension Neurological: Yes Parkinson's Disease Genitourinary: No Kidney Stones Gastrointestinal: Yes Chronic Diarrhea, Irritable Bowel Musculoskeletal: Yes Arthritis Endocrine: Yes Diabetes, Non-Insulin dep HEENT: No Loss of Vision: Bilateral Hearing Impairment: Denies Cancer: Yes Testicular Did You Recieve Any Treatments: No What Type of Treatment Did You: Surgical Intervention Psychosocial: Yes Anxiety Integumentary: No Blood Disorders: No Family Medical History Patient reports no known family medical history. Heart Disease, CAD Over 55 Years Old, Diabetes, Hypertension SOCIAL HISTORY: -ETOH--REGULAR USE -DRUGS---REGULAR MARIJUANA USE, ALSO TESTED + FOR AMPHETAMINES/METHAMPHETAMINES IN PAST -SMOKES 1 1/2-2 PPD ADDITIONAL PAST SURGICAL HISTORY: -LUMBAR LAMINECTOMY L4-L5 AND L5-S1 Physical Exam-Suspected Sepsis Physical Exam Vital Signs Vital Signs - First Documented 03/18/23 03/18/23 06:18 06:27 Temp 39.7 Pulse 117 Resp 20 B/P (MAP) 147/118 (128) Pulse Ox 89 O2 Delivery Nasal Cannula O2 Flow Rate 2.00 Capillary Refill : Height, Weight, BMI Height: 5'6.00" Weight: 157lbs. 5.0oz. [id number]; 27.44 BMI Method:Stated General Appearance: WD/WN, Other (Tremoring) Eyes: Bilateral Eye Normal Inspection, Bilateral Eye PERRL HEENT: TMs Normal, Other (Unable to evaluate posterior pharynx due to patient's resistance. Mucous membranes are dry. He is edentulous. No oral lesions) Neck: Supple Respiratory: Lungs Clear, Normal Breath Sounds, No Accessory Muscle Use, No Respiratory Distress, Other (Tachypnea) Cardiovascular: Regular Rate, Rhythm, Normal Peripheral Pulses, Tachycardia (115) Gastrointestinal: Soft, Abnormal Bowel Sounds (Hypoactive); No Distended Back: Normal Inspection Extremity: Normal Inspection, Swelling (Swelling noted in both hands extending up the forearm) Neurologic/Psychiatric: Alert, Other (No facial droop or hemiparesis of extremities) Skin: other (Patient is flushed/erythematous diffusely. Multiple tattoos. No wounds or cellulitic appearing lesions; skin is very hot to the touch) Focused Exam Lactate Level 03/18/23 09:14: Lactic Acid Level 2.19*H 03/18/23 11:41: Lactic Acid Level 2.04*H 03/18/23 15:35: Lactic Acid Level 1.35 Lactic Acid Level Progress/Results/Core Measures Suspected Sepsis SIRS Temperature: Pulse: Respiratory Rate: Laboratory Tests 03/18/23 06:24: White Blood Count 15.8H 03/19/23 04:33: White Blood Count 11.6H Blood Pressure / Mean: 03/18/23 09:14: Lactic Acid Level 2.19*H 03/18/23 11:41: Lactic Acid Level 2.04*H 03/18/23 15:35: Lactic Acid Level 1.35 Laboratory Tests 03/18/23 06:24: Creatinine 1.10, INR Comment 0.9, Platelet Count 374, Total Bilirubin 0.3 03/18/23 19:20: Creatinine 0.77 03/19/23 04:33: Creatinine 0.66, Platelet Count 232, Total Bilirubin 0.3 Results/Orders Lab Results Laboratory Tests Test 03/18/23 06:24 03/18/23 06:32 03/18/23 06:45 03/18/23 09:14 Range/Units White Blood Count 15.8 H 4.3-11.0 10^3/uL Red Blood Count 4.45 4.30-5.52 10^6/uL Hemoglobin 13.0 L 13.3-17.7 g/dL Hematocrit 39 L 40-54 % Mean Corpuscular Volume 87 80-99 fL Mean Corpuscular Hemoglobin 29 25-34 pg Mean Corpuscular Hemoglobin Concent 34 32-36 g/dL Red Cell Distribution Width 14.8 H 10.0-14.5 % Platelet Count 374 130-400 10^3/uL Mean Platelet Volume 11.4 9.0-12.2 fL Immature Granulocyte % (Auto) 1 % Neutrophils (%) (Auto) 65 42-75 % Lymphocytes (%) (Auto) 22 12-44 % Monocytes (%) (Auto) 8 0-12 % Eosinophils (%) (Auto) 3 0-10 % Basophils (%) (Auto) 1 0-10 % Neutrophils # (Auto) 10.3 H 1.8-7.8 10^3/uL Lymphocytes # (Auto) 3.5 1.0-4.0 10^3/uL Monocytes # (Auto) 1.3 H 0.0-1.0 10^3/uL Eosinophils # (Auto) 0.4 H 0.0-0.3 10^3/uL Basophils # (Auto) 0.1 0.0-0.1 10^3/uL Immature Granulocyte # (Auto) 0.2 H 0.0-0.1 10^3/uL Neutrophils % (Manual) 63 % Lymphocytes % (Manual) 26 % Monocytes % (Manual) 7 % Eosinophils % (Manual) 4 % Blood Morphology Comment NORMAL Prothrombin Time 12.5 12.2-14.7 SEC INR Comment 0.9 0.8-1.4 Activated Partial Thromboplast Time 28 24-35 SEC Sodium Level 140 135-145 MMOL/L Potassium Level 5.8 H 3.6-5.0 MMOL/L Chloride Level 103 98-107 MMOL/L Carbon Dioxide Level 21 21-32 MMOL/L Anion Gap 16 H 5-14 MMOL/L Blood Urea Nitrogen 32 H 7-18 MG/DL Creatinine 1.10 0.60-1.30 MG/DL Estimat Glomerular Filtration Rate 73 BUN/Creatinine Ratio 29 Glucose Level 219 H 70-105 MG/DL Lactic Acid Level 3.86 *H 2.19 *H 0.50-2.00 MMOL/L Calcium Level 9.2 8.5-10.1 MG/DL Corrected Calcium 9.2 8.5-10.1 MG/DL Total Bilirubin 0.3 0.1-1.0 MG/DL Aspartate Amino Transf (AST/SGOT) 10 5-34 U/L Alanine Aminotransferase (ALT/SGPT) 12 0-55 U/L Alkaline Phosphatase 86 40-136 U/L Total Creatine Kinase 48 30-200 U/L Total Protein 7.5 6.4-8.2 GM/DL Albumin 4.0 3.2-4.5 GM/DL Valproic Acid (Depakene) Level 54.1 50.0-100.0 UG/ML Influenza Type A (RT-PCR) Not Detected Not Detecte Influenza Type B (RT-PCR) Not Detected Not Detecte SARS-CoV-2 RNA (RT-PCR) Not Detected Not Detecte Urine Color YELLOW Urine Clarity CLEAR Urine pH 7.0 5-9 Urine Specific [place] 1.010 L 1.016-1.022 Urine Protein NEGATIVE NEGATIVE Urine Glucose (UA) NEGATIVE NEGATIVE Urine Ketones NEGATIVE NEGATIVE Urine Nitrite NEGATIVE NEGATIVE Urine Bilirubin NEGATIVE NEGATIVE Urine Urobilinogen 0.2 < = 1.0 MG/DL Urine Leukocyte Esterase NEGATIVE NEGATIVE Urine RBC (Auto) NEGATIVE NEGATIVE Urine RBC RARE /HPF Urine WBC NONE /HPF Urine Squamous Epithelial Cells RARE /HPF Urine Crystals NONE /LPF Urine Bacteria NEGATIVE /HPF Urine Casts NONE /LPF Urine Mucus NEGATIVE /LPF Urine Culture Indicated NO Test 03/18/23 11:00 03/18/23 11:10 03/18/23 11:41 03/18/23 13:35 Range/Units Blood Gas Puncture Site L RAD Blood Gas Patient Temperature 36.8 Arterial Blood pH 7.35 L 7.37-7.43 Arterial Blood Partial Pressure CO2 46 H 35-45 MMHG Arterial Blood Partial Pressure O2 103 H 79-93 MMHG Arterial Blood HCO3 25 23-27 MMOL/L Arterial Blood Total CO2 26.4 21.0-31.0 MMOL/L Arterial Blood Oxygen Saturation 98 94-100 % Arterial Blood Base Excess 0.1 -2.5-2.5 MMOL/L Kali Test P Blood Gas Ventilator Setting NO Blood Gas Inspired Oxygen 2 L Glucometer 158 H 70-110 MG/DL Lactic Acid Level 2.04 *H 0.50-2.00 MMOL/L Urine Opiates Screen POSITIVE H NEGATIVE Urine Oxycodone Screen NEGATIVE NEGATIVE Urine Methadone Screen NEGATIVE NEGATIVE Urine Propoxyphene Screen NEGATIVE NEGATIVE Urine Barbiturates Screen NEGATIVE NEGATIVE Ur Tricyclic Antidepressants Screen NEGATIVE NEGATIVE Urine Phencyclidine Screen NEGATIVE NEGATIVE Urine Amphetamines Screen NEGATIVE NEGATIVE Urine Methamphetamines Screen NEGATIVE NEGATIVE Urine Benzodiazepines Screen NEGATIVE NEGATIVE Urine Cocaine Screen NEGATIVE NEGATIVE Urine Cannabinoids Screen POSITIVE H NEGATIVE Test 03/18/23 15:35 03/18/23 16:29 03/18/23 19:20 03/18/23 20:12 Range/Units Lactic Acid Level 1.35 0.50-2.00 MMOL/L Glucometer 131 H 196 H 70-110 MG/DL Sodium Level 141 135-145 MMOL/L Potassium Level 4.3 3.6-5.0 MMOL/L Chloride Level 109 H 98-107 MMOL/L Carbon Dioxide Level 25 21-32 MMOL/L Anion Gap 7 5-14 MMOL/L Blood Urea Nitrogen 27 H 7-18 MG/DL Creatinine 0.77 0.60-1.30 MG/DL Estimat Glomerular Filtration Rate 98 BUN/Creatinine Ratio 35 Glucose Level 189 H 70-105 MG/DL Calcium Level 7.9 L 8.5-10.1 MG/DL Test 03/19/23 04:33 03/19/23 10:42 03/19/23 15:39 03/19/23 20:33 Range/Units White Blood Count 11.6 H 4.3-11.0 10^3/uL Red Blood Count 3.62 L 4.30-5.52 10^6/uL Hemoglobin 10.3 #L 13.3-17.7 g/dL Hematocrit 32 L 40-54 % Mean Corpuscular Volume 88 80-99 fL Mean Corpuscular Hemoglobin 28 25-34 pg Mean Corpuscular Hemoglobin Concent 32 32-36 g/dL Red Cell Distribution Width 15.0 H 10.0-14.5 % Platelet Count 232 130-400 10^3/uL Mean Platelet Volume 11.2 9.0-12.2 fL Immature Granulocyte % (Auto) 1 % Neutrophils (%) (Auto) 61 42-75 % Lymphocytes (%) (Auto) 22 12-44 % Monocytes (%) (Auto) 14 H 0-12 % Eosinophils (%) (Auto) 2 0-10 % Basophils (%) (Auto) 0 0-10 % Neutrophils # (Auto) 7.1 1.8-7.8 10^3/uL Lymphocytes # (Auto) 2.5 1.0-4.0 10^3/uL Monocytes # (Auto) 1.7 H 0.0-1.0 10^3/uL Eosinophils # (Auto) 0.2 0.0-0.3 10^3/uL Basophils # (Auto) 0.1 0.0-0.1 10^3/uL Immature Granulocyte # (Auto) 0.1 0.0-0.1 10^3/uL Sodium Level 139 135-145 MMOL/L Potassium Level 4.2 3.6-5.0 MMOL/L Chloride Level 109 H 98-107 MMOL/L Carbon Dioxide Level 22 21-32 MMOL/L Anion Gap 8 5-14 MMOL/L Blood Urea Nitrogen 22 H 7-18 MG/DL Creatinine 0.66 0.60-1.30 MG/DL Estimat Glomerular Filtration Rate 102 BUN/Creatinine Ratio 33 Glucose Level 168 H 70-105 MG/DL Calcium Level 8.4 L 8.5-10.1 MG/DL Corrected Calcium 9.0 8.5-10.1 MG/DL Phosphorus Level 3.4 2.3-4.7 MG/DL Magnesium Level 1.6 1.6-2.4 MG/DL Total Bilirubin 0.3 0.1-1.0 MG/DL Aspartate Amino Transf (AST/SGOT) 11 5-34 U/L Alanine Aminotransferase (ALT/SGPT) 16 0-55 U/L Alkaline Phosphatase 65 40-136 U/L Total Protein 5.9 L 6.4-8.2 GM/DL Albumin 3.3 3.2-4.5 GM/DL Glucometer 208 H 170 H 172 H 70-110 MG/DL Micro Results Microbiology 03/18/23 MRSA Screen - Final, Complete MRSA not isolated 03/18/23 Urine Culture - Final, Complete NO GROWTH 03/18/23 Blood Culture - Preliminary, Resulted No growth 03/18/23 Blood Culture - Preliminary, Resulted No growth My Orders Orders - RAVI OCHOA MD Cbc With Automated Diff (03/18/23 06:36) Comprehensive Metabolic Panel (03/18/23 06:36) Blood Culture (03/18/23 06:36) Urinalysis (03/18/23 06:36) Urine Culture (03/18/23 06:36) Protime With Inr (03/18/23 06:36) Partial Thromboplastin Time (03/18/23 06:36) Chest 1 View, Ap/Pa Only (03/18/23 06:36) Ed Iv/Invasive Line Start (03/18/23 06:36) Ed Iv/Invasive Line Start (03/18/23 06:36) Vital Signs Adult Sepsis Patie Q15M (03/18/23 06:36) O2 (03/18/23 06:36) Lactic Acid Analyzer (03/18/23 06:36) Covid 19 Inhouse Test (03/18/23 06:36) Influenza A And B By Pcr (03/18/23 06:36) Isolation Central Supply Req (03/18/23 06:36) Ns Iv 1000 Ml (Sodium Chloride 0.9%) (03/18/23 06:36) Acetaminophen Suppository (Tylenol Suppo (03/18/23 06:45) Catheter(Urinary) Insert & Ass 03,15 (03/18/23 06:36) Lidocaine 2% (Urojet) (Xylocaine Urojet) (03/18/23 06:45) Valproic Acid (03/18/23 06:43) Manual Differential (03/18/23 06:24) Ns Iv 1000 Ml (Sodium Chloride 0.9%) (03/18/23 07:39) Cefepime Injection (Maxipime Injection) (03/18/23 08:30) Ed Admission (Communication) (03/18/23 08:56) Medications Given in ED Vital Signs/I&O 03/19/23 03/19/23 03/19/23 03/19/23 12:25 15:34 20:27 21:33 Temp 36.4 36.3 36.1 Pulse 59 56 56 51 Resp 18 18 B/P (MAP) 151/70 (97) 132/71 (91) 161/75 (103) Pulse Ox 95 95 O2 Delivery Room Air Room Air Room Air 03/19/23 03/19/23 21:34 21:44 Pulse Ox 98 O2 Delivery Room Air Room Air Capillary Refill : Progress Note : Time: 08:03 Progress Note Patient reassessed at this time. Heart rate is down to 90. Blood pressure still in the 130s systolic. Requiring 2 L of oxygen to maintain sats around 95 to 96%. No increased work of breathing or respiratory distress. Alert but still poorly answering questions. Patient seen and evaluated by me. Evaluation today includes "sepsis" protocol. CBC, Chem-12, coags, UA, blood cultures, lactic acid, single view chest x-ray, valproic acid level. Physical exam remarkable for well-developed well-nourished elderly male in no acute distress. Slow to respond will not converse. Does seem to say yes appropriately. Will not verbalize complaints. Disoriented to where he is. Unsure what is his mental baseline as he has a history of Parkinson's and likely Parkinson's dementia on review of medications. Abdomen is soft, bowel sounds are present. Heart is tachycardic lungs are clear. Diffusely flushed. Edema from the bilateral tips of fingers to elbow bilaterally. No open wounds. Tobacco stained on fingers. Trace edema bilateral lower extremities. Differential diagnosis based on history and physical, severe sepsis due to pneumonia, urosepsis, consideration for meningitis, encephalitis. CT scan/LP considered. Patient does not appear to have meningismus. Likely source would be pneumonia as the patient is somewhat hypoxic. Labs and imaging reviewed by me. Patient has a white blood cell count of 15,000. Lactic acid is elevated greater than 3. Potassium on chemistry is 5.8, normal renal function. He has normal coags. Urinalysis is unremarkable. Valproic acid level is in therapeutic range. Chest x-ray dependently interpreted by me, poor lung volumes no effusion, no discrete infiltrate. Radiologist concurs. Patient has been treated with 2 L of IV fluids, 1 per EMS 1 per the ED. He is currently running normal saline at 250 cc an hour. Treated with rectal Tylenol 650 mg suppository. 1 g of cefepime administered for sepsis of unknown origin. Case was discussed with Dr. Alcocer hospitalist on for [facility]. She will do orders. Inpatient to the ICU. Diagnostic Imaging Diagonstic Imaging: Xray Plain Films/CT/US/NM/MRI: chest Comments [facility] [place], [place] NAME: JAMIE CHAPMAN [facility] REC#: [id number] PT STATUS: REG ER : 1955 PHYSICIAN: RAVI OCHOA MD ADMIT DATE: 03/18/23/ER Draft Date of Exam:03/18/23 CHEST 1 VIEW, AP/PA ONLY EXAMINATION: Chest radiograph, portable AP view. DATE: 03/18/2023 7:16 AM. INDICATION: 67-year-old male, fever. Altered mental status. COMPARISON: January 04, 2021. FINDINGS: The heart size and mediastinal contours are unchanged. There is no identified pneumothorax. There is no large pleural effusion. There is no definite focal airspace consolidation. IMPRESSION: No radiographically apparent acute cardiopulmonary abnormality. Dictated on workstation # [id number] Dict: 03/18/23 0721 Trans: 03/18/23 0731 [id number] Interpreted by: IMER CASAS MD Electronically signed by: Departure Communication (Admissions) Time/Spoke to Admitting Phy: 08:[address] Alcocer - [facility] hospitalist; IP to ICU Severe sepsis Impression Primary Impression: Sepsis Qualified Codes: A41.9 - Sepsis, unspecified organism Disposition: ADMITTED INPATIENT Condition: Critical Admissions Decision to Admit Reason: Admit from ER (General) Decision to Admit/Date: Mar 18, 2023 Time/Decision to Admit Time: 08:26 Departure-Patient Inst. Referrals: [facility] [place] Primary Care Physician RAVI OCHOA MD Mar 18, 2023 06:43
[2023-03-18] MEDS ORDERED: LIDOCAINE UROJET 2% GEL 10 ML PKG TOP ONE (06:45)
[2023-03-18] MEDS ORDERED: ACETAMINOPHEN 650 MG SUPP (TYLENOL) PR ONE (06:45)
[2023-03-18 06:47] LABS: BASOPHILS # (AUTO) 0.1 10^3/uL (0.0-0.1); BASOPHILS % (AUTO) 1 % (0-10); EOSINOPHILS # (AUTO) 0.4 10^3/uL (0.0-0.3); EOSINOPHILS % (AUTO) 3 % (0-10); HEMATOCRIT 39 % (40-54); LYMPHOCYTES # (AUTO) 3.5 10^3/uL (1.0-4.0); LYMPHOCYTES % (AUTO) 22 % (12-44); MEAN CORPUSCULAR HEMOGLOBIN 29 pg (25-34); MEAN CORPUSCULAR HGB CONC 34 g/dL (32-36); MEAN CORPUSCULAR VOLUME 87 fL (80-99); MEAN PLATELET VOLUME 11.4 fL (9.0-12.2); MONOCYTES # (AUTO) 1.3 10^3/uL (0.0-1.0); MONOCYTES % (AUTO) 8 % (0-12); NEUTROPHILS # (AUTO) 10.3 10^3/uL (1.8-7.8); NEUTROPHILS % (AUTO) 65 % (42-75); PLATELET COUNT 374 10^3/uL (130-400); WHITE BLOOD COUNT 15.8 10^3/uL (4.3-11.0)
[2023-03-18 06:50] LABS: POTASSIUM 5.8 MMOL/L (3.6-5.0)
[2023-03-18 06:51] LABS: CALCIUM 9.2 MG/DL (8.5-10.1)
[2023-03-18 06:52] LABS: TOTAL PROTEIN 7.5 GM/DL (6.4-8.2)
[2023-03-18 06:53] LABS: INR 0.9 (0.8-1.4); PROTHROMBIN TIME PATIENT 12.5 SEC (12.2-14.7)
[2023-03-18 06:54] LABS: BILIRUBIN,TOTAL 0.3 MG/DL (0.1-1.0)
[2023-03-18 06:55] LABS: BILIRUBIN,URINE NEGATIVE (NEGATIVE); CLARITY,URINE CLEAR; COLOR,URINE YELLOW; GLUCOSE, URINE (UA) NEGATIVE (NEGATIVE); KETONES,URINE NEGATIVE (NEGATIVE); LEUKOCYTE ESTERASE ,URINE NEGATIVE (NEGATIVE); NITRITE,URINE NEGATIVE (NEGATIVE); PROTEIN,URINE NEGATIVE (NEGATIVE)
[2023-03-18 06:56] LABS: CREATININE SERUM 1.1 MG/DL (0.60-1.30)
[2023-03-18 07:04] LABS: EOSINOPHILS % (MANUAL) 4 %; LYMPHOCYTES % (MANUAL) 26 %; MONOCYTES % (MANUAL) 7 %; NEUTROPHILS % (MANUAL) 63 %; RBC MORPH NORMAL
[2023-03-18 07:26] LABS: BACTERIA,URINE NEGATIVE /HPF; RBC,URINE RARE /HPF; SQUAMOUS EPITHELIAL CELL,UR RARE /HPF
--- NOTE | 2023-03-18 07:31 | Diagnostic Imaging Report ---
EXAMINATION: Chest radiograph, portable AP view. DATE: 03/18/2023 7:16 AM. INDICATION: 67-year-old male, fever. Altered mental status. COMPARISON: January 04, 2021. FINDINGS: The heart size and mediastinal contours are unchanged. There is no identified pneumothorax. There is no large pleural effusion. There is no definite focal airspace consolidation. IMPRESSION: No radiographically apparent acute cardiopulmonary abnormality. Dictated by: Dictated on workstation # [id number]
[2023-03-18] MEDS ORDERED: CEFEPIME INJECTION 1,000 MG in NS (IVPB) 50 ML IV ONE (08:30)
--- NOTE | 2023-03-18 08:44 | History & Physical-Hospitalist ---
History of Present Illness HPI/Chief Complaint CC: Severe sepsis HPI: This is a 67[facility]WM clinic patient of [facility] who presented to the ER due to high fever of 104. No hx obtainable due to poor cognition. Sepsis w/u did not reval source but suspected PNA. Broad spectrum abx initiated after cultures. Fever improved at time of my assessment. Source: RN/MD, old records Exam Limitations: clinical condition Date Seen 03/18/23 Time Seen by a Provider: 12:15 Attending Physician [place]/[facility] PCP Admitting Physician: Attending Physician: Referring Physician Date of Admission Home Medications & Allergies Home Medications Reviewed patient Home Medication Reconciliation performed by pharmacy medication reconciliations vending service technician and/or nursing. Patients Allergies have been reviewed. Allergies Allergies Coded Allergies NKANo Known Allergies (Verified Allergy, Unknown, 07/16/22) Past Vkibckt-Qjrdtp-Wpbavi Hx Patient Social History Marrital Status: single Employed/Student: retired Smoking Status: Current Everyday Smoker Immunizations Up To Date First/Initial COVID19 Vaccinat: 2020 Second COVID19 Vaccination Edson: 2020 Tetanus Booster (TDap): Unknown Seasonal Allergies Seasonal Allergies: Yes Current Status Primary Language: Malay Preferred Spoken Language: Malay Is interpretation needed?: No Past Medical History Surgeries: Appendectomy, Gallbladder, Orthopedic, Renal, Testicular COPD Hypertension Parkinson's Disease Kidney Stones Chronic Diarrhea, Irritable Bowel Arthritis Diabetes, Non-Insulin dep Loss of Vision: Bilateral Hearing Impairment: Denies Testicular Did You Recieve Any Treatments: No What Type of Treatment Did You: Surgical Intervention Anxiety Nursing Suicide Risk Notes: UNABLE TO ASSESS D/T AMS Blood Disorders: No Testicular Cancer Type II Diabetes Arthritis HTN Depression Tobacco Abuse THC Abuse CAD of [place] Vessel Hyperlipidemia Cervical stenosis Parkinson's Disease Diabetic Neuropathy Chronic Pain Surgical Hx: Cholecystectomy Orchiectomy (r) Full Dental Extraction Appendectomy - 1968 Carpal Tunnel Release - 2017 Family Medical History Patient reports no known family medical history. Heart Disease, CAD Over 55 Years Old, Diabetes, Hypertension SOCIAL HISTORY: -ETOH--REGULAR USE -DRUGS---REGULAR MARIJUANA USE, ALSO TESTED + FOR AMPHETAMINES/METHAMPHETAMINES IN PAST -SMOKES 1 1/2-2 PPD ADDITIONAL PAST SURGICAL HISTORY: -LUMBAR LAMINECTOMY L4-L5 AND L5-S1 Review of Systems ROS-Unable to Obtain: ams Constitutional: see HPI Physical Exam Physical Exam Vital Signs Vital Signs - First Documented 03/18/23 03/18/23 06:18 06:27 Temp 39.7 Pulse 117 Resp 20 B/P (MAP) 147/118 (128) Pulse Ox 89 O2 Delivery Nasal Cannula O2 Flow Rate 2.00 Capillary Refill : Less Than 3 Seconds Height, Weight, BMI Height: 5'6.00" Weight: 157lbs. 5.0oz. 71.666122be; 27.44 BMI Method:Stated General Appearance: No Apparent Distress, Chronically ill Eyes: Right Eye Normal Inspection, Right Eye PERRL HEENT: PERRL/EOMI, Normal ENT Inspection, Pharynx Normal, Moist Mucous Membranes Neck: Full Range of Motion, Normal Inspection, Non Tender Respiratory: Chest Non Tender, Lungs Clear, No Accessory Muscle Use, No Respiratory Distress, Decreased Breath Sounds Cardiovascular: Regular Rate, Rhythm, No Edema, No Gallop, No JVD, No Murmur, Normal Peripheral Pulses Gastrointestinal: Normal Bowel Sounds, No Organomegaly, No Pulsatile Mass, Non Tender, Soft Back: Normal Inspection, No CVA Tenderness, No Vertebral Tenderness Extremity: Normal Capillary Refill, Normal Inspection, No Pedal Edema Neurologic/Psychiatric: Other (lethargic) Skin: Normal Color, Warm/Dry Lymphatic: No Adenopathy Results Results/Procedures Labs Laboratory Tests 03/18/23 06:24 03/18/23 19:20 03/19/23 04:33 Patient resulted labs reviewed. Assessment/Plan Admission Diagnosis Assessment: Severe sepsis of uncertain course presumed PNA DM HTN COPD Smoker HLP [place] [employer] Plan: IVF Abx ICU Admission Status: Inpatient Order (span 2 midnights) Reason for Inpatient Admission: severe sepsis PORSCHE ORTIZ DO Mar 18, 2023 08:44
[2023-03-18] MEDS ORDERED: diphenhydrAMINE 25 MG TAB (BENADRYL) PO PRN (10:30)
[2023-03-18] MEDS ORDERED: NS IV 500 ML 500 ML IV PRN (10:30)
[2023-03-18] MEDS ORDERED: BISACODYL 10 MG SUPP (DULCOLAX) PR PRN (10:30)
[2023-03-18] MEDS ORDERED: MILK OF MAGNESIA 400 MG/5 ML 30 ML UDC PO PRN (10:30)
[2023-03-18] MEDS ORDERED: MELATONIN 3 MG TABLET PO PRN (10:30)
[2023-03-18] MEDS ORDERED: ACETAMINOPHEN 325 MG TABLET PO PRN (10:30)
[2023-03-18] MEDS ORDERED: ONDANSETRON 4 MG (ZOFRAN) ORAL DISSOLVE TAB PO PRN (10:30)
[2023-03-18] MEDS ORDERED: VANCOMYCIN INJECTION 0.1 MG in NS (IVPB) 250 ML IV SCH (10:30)
[2023-03-18] MEDS ORDERED: diphenhydrAMINE 50 MG/ML INJ (BENADRYL) IVP PRN (10:30)
[2023-03-18] MEDS ORDERED: ONDANSETRON 4 MG/2 ML (SDV) Z0FRAN IV PRN (10:30)
[2023-03-18] MEDS ORDERED: polyethylene glycoL POWDER 17 GM (MIRALAX) PACK PO PRN (10:30)
[2023-03-18] MEDS ORDERED: LACTULOSE SYRUP 10GM/15ML (ENULOSE) 30ML UDC PO PRN (10:30)
[2023-03-18] MEDS ORDERED: LORazepam INJ 2 MG/ML (ATIVAN) VIAL IVP PRN (10:30)
[2023-03-18] MEDS ORDERED: LORazepam 0.5 MG (ATIVAN) TABLET PO PRN (10:30)
[2023-03-18] MEDS ORDERED: ANTACID SUSP 30 ML UDC (MYLANTA) PO PRN (10:30)
[2023-03-18] MEDS ORDERED: HYDROmorphone 2 MG/ML VIAL (DILAUDID) IV PRN (10:30)
[2023-03-18] MEDS ORDERED: CALCIUM CARBONATE 500 MG (TUMS) TAB.CHEW PO PRN (10:30)
[2023-03-18] MEDS ORDERED: VANCOMYCIN 1500MG/300ML PREMIX IV ONE (11:00)
[2023-03-18 11:07] LABS: ABG BASE EXCESS 0.1 MMOL/L (-2.5-2.5); ABG OXYGEN SATURATION 98 % (94-100); ABG PCO2 46 MMHG (35-45); ABG PH 7.35 (7.37-7.43); ABG PO2 103 MMHG (79-93); ABG TCO2 26.4 MMOL/L (21.0-31.0)
[2023-03-18] MEDS ORDERED: CEFEPIME INJECTION 1,000 MG in NS (IVPB) 50 ML IV SCH (11:10)
[2023-03-18 11:13] LABS: ALLENS TEST P; INSPIRED O2 2 L; PATIENT TEMP 36.8; VENTILATOR NO
[2023-03-18 11:29] VITALS: BP 108/56
[2023-03-18] MEDS: NS IV 1000 ML 1,000 ML IV SCH ×2 (11:43→17:59)
[2023-03-18] MEDS: ENOXAPARIN 40 MG/0.4 ML (LOVENOX) SYR SC SCH (11:43)
[2023-03-18] MEDS: inSUlin ASPART (NovoLOG) 1 UNIT/0.01 ML (CHARGE PER UNIT) SC SCH ×3 (11:44→21:17)
[2023-03-18] MEDS: CEFEPIME INJECTION 1,000 MG in NS (IVPB) 50 ML IV SCH ×2 (11:44→17:59)
[2023-03-18] MEDS ORDERED: RT-ALBUTEROL/IPRATROPIUM 3 ML (DUONEB) VIAL INH PRN (11:45)
--- NOTE | 2023-03-18 11:53 | Tele-ICU Consult ---
History of Present Illness History of Present Illness Date Seen by Provider: Mar 18, 2023 Time Seen by Provider: 11:52 Date of Admission History of Present Illness (Tele-ICU Physician , consultation as per request of PCP Service provided via interactive audio and video telecommunications E-CARE system to a patient admitted to ICU bed in [facility]. Available chart/ vitals / labs / Images reviewed H&P is from ER notes Patient's information available about PMH, Shx, Fhx allergy reviewed inEMR. ROS as per chart and RN report Now in ICU, hemodynamically stable Video assessment done using teleICU camera, rest of exam as per RN Discussed with RN. Hospital course: 03/18 67 yr male DX: Fever , leukocytosis Sent from [place] for " swollen hands, glassy eyes, fever" Sepsis protocol initiated A/P FEVER 40.6 in NH, 39.7 in ER - ? In fection - w/up is negative by UA / CXR - NMS on olanzapine? Acute mental status change - Parkinson's and likely Parkinson's dementia as he is on olanzapine - as per bedside MD?ER MD - "no meningial signs - LP " considered " , decided agains" -Valproic acid level is in therapeutic range suspected sepsis - tachycardia - ? with fever vs sepsis - received 2 L NS - empiric abx given DM - on metformin PHYSICIAN RELATIONS SPECIALIST -ISS Elev lactate - sepsis ? - SZ? - follow after hydration Lines : periph , (Central Line Necessity Reviewed) Giles: 03/18 OG: Nutrition: po Analgesia: Anxiety/ delirium VTE Prophylaxis: natty Stress Ulcer Prophylaxis: na Plans in collaboration with bedside consultants and IM MDs. Discussed with RN to reach out if any questions or concerns A total of31 minutes of critical care time was devoted to this patient today, required to treat and/or prevent further deterioration of critical care condition ( as above ) . I am remotely monitoring this patient from another state. I am unable to do the bedside exam, and history/physical and pertinent information is taken from other notes in the computer and bedside staff. . Allergies and Home Medications Allergies Coded Allergies: NKANo Known Allergies (Verified Allergy, Unknown, 07/16/22) Home Medications Aspirin 81 Mg Tablet.dr, 81 MG PO DAILY, (Reported) Atorvastatin Calcium 80 Mg Tablet, 80 MG PO HS, (Reported) Baclofen 10 Mg Tablet, 10 MG PO TID, (Reported) Carbidopa/Levodopa 10 Mg-100 Mg Tablet, 1 EACH PO TID, (Reported) Carvedilol 6.25 Mg Tablet, 6.25 MG PO BID, (Reported) Divalproex Sodium 500 Mg Tab.er.24h, 1,000 MG PO HS, (Reported) TAKES 2 (500MG) TABS Duloxetine HCl 60 Mg Capsule.dr, 60 MG PO BID, (Reported) Gabapentin 300 Mg Capsule, 600 MG PO TID, (Reported) TAKES 2 (300MG) CAPS Lisinopril 20 Mg Tablet, 20 MG PO DAILY, (Reported) Melatonin/Pyridoxine HCl (B6) 3 Mg-10 Mg Tablet, 2 EACH PO HS, (Reported) Meloxicam 7.5 Mg Tablet, 7.5 MG PO BID, (Reported) Metformin HCl 500 Mg Tab.er.24h, 500 MG PO BID, (Reported) Oxycodone Hcl 5 Mg Tab, 5 MG PO Q4H PRN for PAIN-SEVERE (8-10) Prescribed by: ANJELICA MOFFETT MD on 07/20/22 0840 Past Medical/Social/Family Hx Patient Social History Tobacco Use?: Yes Tobacco type used: Cigarettes Smoking Status: Current Everyday Smoker Pt stated abuse/neglect: Unable to obtain Immunizations Up To Date First/Initial COVID19 Vaccinat: 2020 Second COVID19 Vaccination Edson: 2020 Tetanus Booster (TDap): Unknown Current Status Advance Directives: No Primary Language: Irish Preferred Spoken Language: Irish Is interpretation needed?: No Implanted or Applied Medical D: None Past Medical History Testicular Cancer Type II Diabetes Arthritis HTN Depression Tobacco Abuse THC Abuse CAD of [place] Vessel Hyperlipidemia Cervical stenosis Parkinson's Disease Diabetic Neuropathy Chronic Pain Surgical Hx: Cholecystectomy Orchiectomy (r) Full Dental Extraction Appendectomy - 1968 Carpal Tunnel Release - 2016 Family Medical History Family Hx: SOCIAL HISTORY: -ETOH--REGULAR USE -DRUGS---REGULAR MARIJUANA USE, ALSO TESTED + FOR AMPHETAMINES/METHAMPHETAMINES IN PAST -SMOKES 1 1/2-2 PPD ADDITIONAL PAST SURGICAL HISTORY: -LUMBAR LAMINECTOMY L4-L5 AND L5-S1 Review of Systems Constitutional: see HPI Focused Exam Lactate Level 03/18/23 06:24: Lactic Acid Level 3.86*H 03/18/23 09:14: Lactic Acid Level 2.19*H 03/18/23 11:41: Height, Weight, BMI Height: 5'6.00" Weight: 157lbs. 5.0oz. [id number]; 27.52 BMI Method:Stated Lactic Acid Level Laboratory Tests Test 03/18/23 09:14 03/18/23 11:41 Lactic Acid Level 2.19 MMOL/L (0.50-2.00) *H Within 3hrs of presentation: Admin fluids, Admin ABX, Blood cultures prior to ABX's, Focus exam, Lactate level Exam Exam Patient acknowledged, consented, and participated in this virtual visit which was conducted using real time audio/video Vital Signs Date Time Temp Pulse Resp B/P (MAP) Pulse Ox O2 Delivery O2 Flow Rate FiO2 03/18/23 11:29 36.5 67 97 03/18/23 11:22 67 03/18/23 11:00 66 14 108/56 (73) 97 Nasal Cannula 2.00 03/18/23 09:23 36.5 81 19 96/50 94 Nasal Cannula 2.00 03/18/23 06:42 39.7 03/18/23 06:27 89 Nasal Cannula 2.00 03/18/23 06:18 39.7 117 20 147/118 (128) 89 Room Air 03/18/23 06:18 Nasal Cannula Height & Weight Height: 5'6.00" Weight: 157lbs. 5.0oz. 71.221902ka; 27.52 BMI Method:Stated General Appearance: No Apparent Distress, WD/WN, Other (Tremoring) HEENT: TMs Normal, Other (Unable to evaluate posterior pharynx due to patient's resistance. Mucous membranes are dry. He is edentulous. No oral lesions) Neck: Supple Respiratory: Lungs Clear, Normal Breath Sounds, No Accessory Muscle Use, No Respiratory Distress, Other (Tachypnea) Cardiovascular: Regular Rate, Rhythm, Normal Peripheral Pulses, Tachycardia (115) Capillary Refill: Less Than 3 Seconds Extremity: Normal Inspection, Swelling (Swelling noted in both hands extending up the forearm) Neurologic/Psychiatric: Alert, Other (No facial droop or hemiparesis of extremities) Results Lab Laboratory Tests 03/18/23 06:24 Assessment/Plan Assessment/Plan 1 AMADOU BRANTLEY MD Mar 18, 2023 11:53
[2023-03-18] MEDS ORDERED: VANCOMYCIN 1,750 MG/NS 500 ML IVPB IV ONE ×2 (12:00)
[2023-03-18 13:59] LABS: AMPHETAMINE SCREEN, URINE NEGATIVE (NEGATIVE); BARBITURATE SCREEN URINE NEGATIVE (NEGATIVE); BENZODIAZEPINES SCREEN URINE NEGATIVE (NEGATIVE); CANNABINOID SCREEN, URINE POSITIVE (NEGATIVE); COCAINE SCREEN URINE NEGATIVE (NEGATIVE); METHADONE STAT NEGATIVE (NEGATIVE); OPIATE SCREEN URINE POSITIVE (NEGATIVE); OXYCODONE STAT NEGATIVE (NEGATIVE); PROPOXYPHENE STAT NEGATIVE (NEGATIVE); TRICYCLIC ANTIDEPRESSANTS SCRE NEGATIVE (NEGATIVE)
[2023-03-18] MEDS ORDERED: DIVA-76 PO (15:55)
[2023-03-18] MEDS ORDERED: AMLO-251 PO (15:55)
[2023-03-18] MEDS ORDERED: LISI40TA9 PO (15:55)
[2023-03-18] MEDS ORDERED: OLN5T PO (15:55)
[2023-03-18] MEDS ORDERED: CARV6.252 PO (15:55)
[2023-03-18] MEDS ORDERED: LOPE-134 PO (15:55)
[2023-03-18] MEDS ORDERED: DICL100G13 TOP (15:55)
[2023-03-18] MEDS ORDERED: OLAN10VI3 IM (15:55)
[2023-03-18] MEDS ORDERED: DIVA-74 PO (15:55)
[2023-03-18] MEDS ORDERED: ACET600C5 PO (15:55)
[2023-03-18] MEDS ORDERED: OLAN2.5T27 PO (15:55)
[2023-03-18] MEDS ORDERED: FURO40TA4 PO (15:55)
[2023-03-18] MEDS ORDERED: METF-398 PO (15:55)
[2023-03-18] MEDS ORDERED: ACHD5005 PO (15:55)
[2023-03-18] MEDS ORDERED: ACET-2267 PO (15:55)
[2023-03-18] MEDS ORDERED: GBPN600T PO (15:55)
[2023-03-18 19:42] LABS: CALCIUM 7.9 MG/DL (8.5-10.1); CREATININE SERUM 0.77 MG/DL (0.60-1.30); POTASSIUM 4.3 MMOL/L (3.6-5.0)
[2023-03-18] MEDS: SENNOSIDES 8.6 MG (SENOKOT) TAB PO SCH (20:32)
[2023-03-18] MEDS: DOCUSATE SODIUM 100 MG (COLACE) CAP PO SCH (20:33)
[2023-03-19] MEDS: CEFEPIME INJECTION 1,000 MG in NS (IVPB) 50 ML IV SCH ×5 (00:06→23:25)
[2023-03-19] MEDS: NS IV 1000 ML 1,000 ML IV SCH ×2 (00:08→10:12)
[2023-03-19] MEDS: VANCOMYCIN 1250 MG/NS 250 ML PREMIX IV SCH ×2 (00:48→12:23)
[2023-03-19 05:02] LABS: BASOPHILS # (AUTO) 0.1 10^3/uL (0.0-0.1); BASOPHILS % (AUTO) 0 % (0-10); EOSINOPHILS # (AUTO) 0.2 10^3/uL (0.0-0.3); EOSINOPHILS % (AUTO) 2 % (0-10); HEMATOCRIT 32 % (40-54); HEMOGLOBIN 10.3 g/dL (13.3-17.7); LYMPHOCYTES # (AUTO) 2.5 10^3/uL (1.0-4.0); LYMPHOCYTES % (AUTO) 22 % (12-44); MEAN CORPUSCULAR HGB CONC 32 g/dL (32-36); MEAN CORPUSCULAR VOLUME 88 fL (80-99); MEAN PLATELET VOLUME 11.2 fL (9.0-12.2); MONOCYTES # (AUTO) 1.7 10^3/uL (0.0-1.0); MONOCYTES % (AUTO) 14 % (0-12); NEUTROPHILS # (AUTO) 7.1 10^3/uL (1.8-7.8); NEUTROPHILS % (AUTO) 61 % (42-75); PLATELET COUNT 232 10^3/uL (130-400); WHITE BLOOD COUNT 11.6 10^3/uL (4.3-11.0)
[2023-03-19 05:06] LABS: MEAN CORPUSCULAR HEMOGLOBIN 28 pg (25-34)
[2023-03-19 05:23] LABS: ALBUMIN 3.3 GM/DL (3.2-4.5); BILIRUBIN,TOTAL 0.3 MG/DL (0.1-1.0); CALCIUM 8.4 MG/DL (8.5-10.1); CREATININE SERUM 0.66 MG/DL (0.60-1.30); MAGNESIUM 1.6 MG/DL (1.6-2.4); PHOSPHORUS 3.4 MG/DL (2.3-4.7); POTASSIUM 4.2 MMOL/L (3.6-5.0); TOTAL PROTEIN 5.9 GM/DL (6.4-8.2)
[2023-03-19] MEDS: inSUlin ASPART (NovoLOG) 1 UNIT/0.01 ML (CHARGE PER UNIT) SC SCH ×4 (05:47→20:43)
[2023-03-19] MEDS ORDERED: POTASSIUM CL 10MEQ/50ML IVPB 50 ML IV SCH (06:00)
[2023-03-19] MEDS ORDERED: KCL 20 MEQ TAB (K-DUR) PO SCH (06:00)
[2023-03-19] MEDS ORDERED: MAGNESIUM 1 GM/100 ML IVPB 100 ML IV SCH (06:00)
[2023-03-19] MEDS: MAGNESIUM 1 GM/100 ML IVPB 100 ML IV SCH ×4 (06:29→10:10)
--- NOTE | 2023-03-19 07:12 | Diagnostic Imaging Report ---
INDICATION: Dyspnea, follow-up pneumonia. COMPARISON: 03/18/2023. DISCUSSION: Single portable upright view of the chest was obtained. Elevated right hemidiaphragm is stable. Mild cardiomegaly is stable. Improved aeration of the lungs with no consolidation on today's exam. No pleural fluid or pneumothorax. No osseous abnormality. IMPRESSION: 1. Improved aeration of the lungs with no residual consolidation identified. Dictated by: Dictated on workstation # [id number]
--- NOTE | 2023-03-19 07:33 | Progress Note - Hospitalist ---
Subjective HPI/CC On Admission Date Seen by Provider: Mar 19, 2023 Time Seen by Provider: 11:00 CC: Severe sepsis HPI: This is a 67yoWM clinic patient of [facility] who presented to the ER due to high fever of 104. No hx obtainable due to poor cognition. Sepsis w/u did not reval source but suspected PNA. Broad spectrum abx initiated after cultures. Fever improved at time of my assessment. Subjective/Events-last exam Doing better Moving to floor No falls No pain Improved mentation Review of Systems General: Fatigue, Malaise Focused Exam Lactate Level 03/18/23 09:14: Lactic Acid Level 2.19*H 03/18/23 11:41: Lactic Acid Level 2.04*H 03/18/23 15:35: Lactic Acid Level 1.35 Objective Exam Vital Signs Vital Signs Date Time Temp Pulse Resp B/P (MAP) Pulse Ox O2 Delivery O2 Flow Rate FiO2 03/19/23 21:33 51 03/19/23 20:27 36.1 18 161/75 (103) 95 Room Air 03/18/23 18:00 1.00 Capillary Refill : Less Than 3 Seconds General Appearance: No Apparent Distress, WD/WN, Chronically ill Respiratory: Lungs Clear, Normal Breath Sounds Cardiovascular: Regular Rate, Rhythm Neurologic/Psychiatric: Alert, Oriented x3 Results/Procedures Lab Laboratory Tests 03/19/23 04:33 Patient resulted labs reviewed. Assessment/Plan Assessment and Plan Assess & Plan/Chief Complaint Assessment: Severe sepsis of uncertain course presumed PNA DM HTN COPD Smoker HLP [place] Plan: IVF Abx Move 4th PORSCHE ORTIZ DO Mar 19, 2023 07:33
[2023-03-19] MEDS: SENNOSIDES 8.6 MG (SENOKOT) TAB PO SCH ×2 (08:29→20:43)
[2023-03-19] MEDS: DOCUSATE SODIUM 100 MG (COLACE) CAP PO SCH ×2 (08:29→20:43)
[2023-03-19] MEDS: ENOXAPARIN 40 MG/0.4 ML (LOVENOX) SYR SC SCH (10:48)
[2023-03-19] MEDS ORDERED: NON-FORMULARY MEDICATION 1 EA EA (Olanzapine 5 MG) IM PRN (11:00)
[2023-03-19] MEDS ORDERED: OLANZapine 2.5 MG (ZyPREXA) TAB PO PRN (11:30)
[2023-03-19] MEDS ORDERED: LOPERAMIDE 2 MG (IMODIUM) TABLET PO PRN (11:45)
[2023-03-19] MEDS: HYDROcodone/APAP 5 MG/325 MG (LORTAB) TAB PO SCH ×3 (11:48→23:25)
[2023-03-19] MEDS: BACLOFEN 10 MG (LIORESAL) TAB PO SCH ×2 (12:24→20:43)
[2023-03-19] MEDS: SINEMET 10/100 (CARBIDOPA/LEVADOPA) TAB PO SCH ×2 (12:24→20:43)
[2023-03-19] MEDS: GABAPENTIN 600 MG (NEURONTIN) TAB PO SCH ×3 (12:24→20:42)
[2023-03-19 20:27] VITALS: BP 161/75
[2023-03-19] MEDS: DIVALPROEX 250 MG DELAYED RELEASE (DEPAKOTE) TAB PO SCH (20:42)
[2023-03-19] MEDS: metFORMIN 850 MG (GLUCOPHAGE) TAB PO SCH (20:43)
[2023-03-19] MEDS: OLANZapine 2.5 MG (ZyPREXA) TAB PO SCH (20:43)
[2023-03-19] MEDS: DULoxetine 30 MG (CYMBALTA) CAP PO SCH (20:43)
[2023-03-19] MEDS: DICLOFENAC 1% GEL 100 GM (VOLTAREN) TUBE TOP SCH (20:44)
[2023-03-19] MEDS ORDERED: NON-FORMULARY MEDICATION 1 EA EA (Acetylcysteine (N-Acetyl-l-Cysteine) 600 MG) PO SCH (21:00)
[2023-03-19 23:30] VITALS: BP 160/69
[2023-03-20] MEDS: VANCOMYCIN 1250 MG/NS 250 ML PREMIX IV SCH ×2 (00:08→13:30)
[2023-03-20 03:10] VITALS: BP 133/70
[2023-03-20 05:23] LABS: BASOPHILS # (AUTO) 0.1 10^3/uL (0.0-0.1); BASOPHILS % (AUTO) 1 % (0-10); EOSINOPHILS # (AUTO) 0.4 10^3/uL (0.0-0.3); EOSINOPHILS % (AUTO) 4 % (0-10); HEMATOCRIT 34 % (40-54); HEMOGLOBIN 11.2 g/dL (13.3-17.7); LYMPHOCYTES # (AUTO) 2.6 10^3/uL (1.0-4.0); LYMPHOCYTES % (AUTO) 27 % (12-44); MEAN CORPUSCULAR HEMOGLOBIN 29 pg (25-34); MEAN CORPUSCULAR HGB CONC 33 g/dL (32-36); MEAN CORPUSCULAR VOLUME 86 fL (80-99); MEAN PLATELET VOLUME 10.7 fL (9.0-12.2); MONOCYTES # (AUTO) 1.3 10^3/uL (0.0-1.0); MONOCYTES % (AUTO) 13 % (0-12); NEUTROPHILS # (AUTO) 5.1 10^3/uL (1.8-7.8); NEUTROPHILS % (AUTO) 54 % (42-75); PLATELET COUNT 224 10^3/uL (130-400); WHITE BLOOD COUNT 9.4 10^3/uL (4.3-11.0)
[2023-03-20] MEDS: inSUlin ASPART (NovoLOG) 1 UNIT/0.01 ML (CHARGE PER UNIT) SC SCH ×4 (05:33→21:08)
[2023-03-20] MEDS: HYDROcodone/APAP 5 MG/325 MG (LORTAB) TAB PO SCH ×4 (05:37→23:31)
[2023-03-20] MEDS: CEFEPIME INJECTION 1,000 MG in NS (IVPB) 50 ML IV SCH ×4 (05:38→23:31)
[2023-03-20 05:56] LABS: ALBUMIN 3.5 GM/DL (3.2-4.5); BILIRUBIN,TOTAL 0.3 MG/DL (0.1-1.0); CALCIUM 8.5 MG/DL (8.5-10.1); CREATININE SERUM 0.67 MG/DL (0.60-1.30); MAGNESIUM 1.7 MG/DL (1.6-2.4); POTASSIUM 4.3 MMOL/L (3.6-5.0); TOTAL PROTEIN 6.4 GM/DL (6.4-8.2)
--- NOTE | 2023-03-20 06:16 | Progress Note - Hospitalist ---
Subjective HPI/CC On Admission Date Seen by Provider: Mar 20, 2023 Time Seen by Provider: 11:00 CC: Severe sepsis HPI: This is a 67yoWM clinic patient of [facility] who presented to the ER due to high fever of 104. No hx obtainable due to poor cognition. Sepsis w/u did not reval source but suspected PNA. Broad spectrum abx initiated after cultures. Fever improved at time of my assessment. Subjective/Events-last exam Much improved Alert and talking and back to baseline No pain Ambulating Review of Systems General: Fatigue Focused Exam Lactate Level 03/18/23 09:14: Lactic Acid Level 2.19*H 03/18/23 11:41: Lactic Acid Level 2.04*H 03/18/23 15:35: Lactic Acid Level 1.35 Objective Exam Vital Signs Vital Signs Date Time Temp Pulse Resp B/P (MAP) Pulse Ox O2 Delivery O2 Flow Rate FiO2 03/20/23 11:10 36.0 63 20 137/64 (88) 96 Room Air 03/18/23 18:00 1.00 Capillary Refill : Less Than 3 Seconds General Appearance: No Apparent Distress, WD/WN, Chronically ill Respiratory: Lungs Clear, Normal Breath Sounds Cardiovascular: Regular Rate, Rhythm Results/Procedures Lab Laboratory Tests 03/20/23 05:15 Patient resulted labs reviewed. Assessment/Plan Assessment and Plan Assess & Plan/Chief Complaint Assessment: Severe sepsis of uncertain course presumed PNA DM HTN COPD Smoker HLP [place] Plan: IVFHL Abx DC tomorrow PORSCHE ORTIZ DO Mar 20, 2023 06:16
[2023-03-20 07:44] VITALS: BP 171/83
[2023-03-20] MEDS: lisINopril 40 MG (PRINIVIL) TABLET PO SCH (09:53)
[2023-03-20] MEDS: amLODIPine 10 MG (NORVASC) TAB PO SCH (09:53)
[2023-03-20] MEDS: FUROSEMIDE 40 MG (LASIX) TAB PO SCH (09:53)
[2023-03-20] MEDS: metFORMIN 850 MG (GLUCOPHAGE) TAB PO SCH ×2 (09:53→21:07)
[2023-03-20] MEDS: SENNOSIDES 8.6 MG (SENOKOT) TAB PO SCH ×2 (09:53→21:07)
[2023-03-20] MEDS: DOCUSATE SODIUM 100 MG (COLACE) CAP PO SCH ×2 (09:53→21:08)
[2023-03-20] MEDS: OLANZapine 2.5 MG (ZyPREXA) TAB PO SCH ×2 (09:53→21:08)
[2023-03-20] MEDS: SINEMET 10/100 (CARBIDOPA/LEVADOPA) TAB PO SCH ×3 (09:53→21:08)
[2023-03-20] MEDS: ASPIRIN E.C. 81 MG (ECOTRIN) TAB PO SCH (09:53)
[2023-03-20] MEDS: DIVALPROEX 250 MG DELAYED RELEASE (DEPAKOTE) TAB PO SCH ×2 (09:53→21:08)
[2023-03-20] MEDS: GABAPENTIN 600 MG (NEURONTIN) TAB PO SCH ×4 (09:53→21:08)
[2023-03-20] MEDS: DULoxetine 30 MG (CYMBALTA) CAP PO SCH ×2 (09:53→21:08)
[2023-03-20] MEDS: ENOXAPARIN 40 MG/0.4 ML (LOVENOX) SYR SC SCH (09:54)
[2023-03-20] MEDS: DICLOFENAC 1% GEL 100 GM (VOLTAREN) TUBE TOP SCH ×2 (09:54→21:09)
[2023-03-20] MEDS: BACLOFEN 10 MG (LIORESAL) TAB PO SCH ×3 (09:54→21:08)
[2023-03-20 11:10] VITALS: BP 137/64
[2023-03-20 16:00] VITALS: BP 125/65
[2023-03-20 19:54] VITALS: BP 148/68
[2023-03-20] MEDS ORDERED: TROUGH ORDER-PHARMACY XX NR (23:00)
[2023-03-20 23:09] VITALS: BP 124/60
[2023-03-21] MEDS: VANCOMYCIN 1250 MG/NS 250 ML PREMIX IV SCH (01:48)
[2023-03-21 03:31] VITALS: BP 147/71
[2023-03-21] MEDS: inSUlin ASPART (NovoLOG) 1 UNIT/0.01 ML (CHARGE PER UNIT) SC SCH ×2 (05:29→11:30)
[2023-03-21 05:35] LABS: BASOPHILS # (AUTO) 0.1 10^3/uL (0.0-0.1); BASOPHILS % (AUTO) 1 % (0-10); EOSINOPHILS # (AUTO) 0.6 10^3/uL (0.0-0.3); EOSINOPHILS % (AUTO) 6 % (0-10); HEMATOCRIT 34 % (40-54); HEMOGLOBIN 11.3 g/dL (13.3-17.7); LYMPHOCYTES # (AUTO) 2.6 10^3/uL (1.0-4.0); LYMPHOCYTES % (AUTO) 28 % (12-44); MEAN CORPUSCULAR HEMOGLOBIN 29 pg (25-34); MEAN CORPUSCULAR HGB CONC 33 g/dL (32-36); MEAN CORPUSCULAR VOLUME 87 fL (80-99); MEAN PLATELET VOLUME 11.5 fL (9.0-12.2); MONOCYTES # (AUTO) 1.2 10^3/uL (0.0-1.0); MONOCYTES % (AUTO) 13 % (0-12); NEUTROPHILS # (AUTO) 4.8 10^3/uL (1.8-7.8); NEUTROPHILS % (AUTO) 52 % (42-75); PLATELET COUNT 239 10^3/uL (130-400); WHITE BLOOD COUNT 9.2 10^3/uL (4.3-11.0)
[2023-03-21 05:57] LABS: ALBUMIN 3.5 GM/DL (3.2-4.5); BILIRUBIN,TOTAL 0.3 MG/DL (0.1-1.0); CALCIUM 8.6 MG/DL (8.5-10.1); CREATININE SERUM 0.63 MG/DL (0.60-1.30); MAGNESIUM 1.5 MG/DL (1.6-2.4); POTASSIUM 4.3 MMOL/L (3.6-5.0); TOTAL PROTEIN 6.4 GM/DL (6.4-8.2)
[2023-03-21] MEDS: HYDROcodone/APAP 5 MG/325 MG (LORTAB) TAB PO SCH ×2 (06:17→11:30)
[2023-03-21] MEDS: CEFEPIME INJECTION 1,000 MG in NS (IVPB) 50 ML IV SCH ×2 (06:17→11:31)
[2023-03-21 07:15] VITALS: BP 154/68
[2023-03-21] MEDS ORDERED: OLANZapine 5 MG ODT (ZyPREXA ZYDIS) PO PRN (07:30)
[2023-03-21] MEDS: OLANZapine 2.5 MG (ZyPREXA) TAB PO SCH (08:29)
[2023-03-21] MEDS: FUROSEMIDE 40 MG (LASIX) TAB PO SCH (08:29)
[2023-03-21] MEDS: DULoxetine 30 MG (CYMBALTA) CAP PO SCH (08:29)
[2023-03-21] MEDS: lisINopril 40 MG (PRINIVIL) TABLET PO SCH (08:29)
[2023-03-21] MEDS: amLODIPine 10 MG (NORVASC) TAB PO SCH (08:29)
[2023-03-21] MEDS: GABAPENTIN 600 MG (NEURONTIN) TAB PO SCH ×2 (08:29→13:01)
[2023-03-21] MEDS: DIVALPROEX 250 MG DELAYED RELEASE (DEPAKOTE) TAB PO SCH (08:29)
[2023-03-21] MEDS: BACLOFEN 10 MG (LIORESAL) TAB PO SCH ×2 (08:29→13:01)
[2023-03-21] MEDS: SENNOSIDES 8.6 MG (SENOKOT) TAB PO SCH (08:29)
[2023-03-21] MEDS: metFORMIN 850 MG (GLUCOPHAGE) TAB PO SCH (08:30)
[2023-03-21] MEDS: SINEMET 10/100 (CARBIDOPA/LEVADOPA) TAB PO SCH ×2 (08:30→13:00)
[2023-03-21] MEDS: DOCUSATE SODIUM 100 MG (COLACE) CAP PO SCH (08:30)
[2023-03-21] MEDS: ASPIRIN E.C. 81 MG (ECOTRIN) TAB PO SCH (08:30)
[2023-03-21] MEDS: DICLOFENAC 1% GEL 100 GM (VOLTAREN) TUBE TOP SCH (08:32)
--- NOTE | 2023-03-21 10:26 | Physical Therapy Evaluation ---
PT Evaluation-General Medical Diagnosis Admission Date Mar 18, 2023 at 10:14 Medical Diagnosis: sepsis Onset Date: Mar 18, 2023 Therapy Diagnosis Therapy Diagnosis: debility Height/Weight Height (Feet): 5 Height (Inches): 6.00 Weight (Pounds): 157 Weight (Ounces): 5.0 Precautions Precautions/Isolations: Fall Prevention, Standard Precautions Referral Physician: Leodan Reason for Referral: Evaluation/Treatment Medical History Pertinent Medical History: COPD, DM, HTN, Parkinson's, Smoking Current History EMS secondary to swollen hands and glassy eyes Reviewed History: Yes Social History Home: Assisted Living Prior Prior Level of Function SCALE: Activities may be completed with or without assistive devices. 5-Zhmexnwgsr-twvffax completes the activity by him/herself with no assistance from a helper. 5-Set-up or Clean-up Assistance-helper sets up or cleans up; patient completes activity. [place] assists only prior to or following the activity. 4-Supervision or Touching Assistance-helper provides verbal cues and/or touching/steadying and/or contact guard assistance as patient completes activity. Assistance may be provided throughout the activity or intermittently. 3-Partial/Moderate Assistance-helper does LESS THAN HALF the effort. [place] lifts, holds or supports trunk or limbs, but provides less than half the effort. 2-Substantial/Maximal Assistance-helper does MORE THAN HALF the effort. [place] lifts or holds trunk or limbs and provides more than half the effort. 1-Gezsinpic-yaysjm does ALL the effort. Patient does none of the effort to complete the activity. Or, the assistance of 2 or more helpers is required for the patient to complete the activity. If activity was not attempted, code reason: 7-Patient Refused. 9-Not Applicable-not attempted and the patient did not perform the activity befo re the current illness, exacerbation or injury. 10-Not Attempted due to Environmental Limitations-(lack of equipment, weather re straints, etc.). 88-Not Attempted due to Medical Conditions or Safety Concerns. Bed Mobility: 6 Transfers (B,C,W/C): 6 Gait: 6 Indoor Mobility (Ambulation): Independent Prior Devices Use: None per patient report PT Evaluation-Current Subjective Patient agrees to PT. Pain Numeric Pain Scale: 0-No Pain Location: No Pain Reported Objective Patient Orientation: Normal For Age ROM/Strength ROM Lower Extremities bilateral LE WFL Strength Lower Extremities 4/5 grossly bilateral LE all planes Integumentary/Posture Bowel Incontinence: No Bladder Incontinence: No Posture WFL Neuromuscular (Tone, Coordination, Reflexes) grossly intact Sensory Vision: Functional Hearing: Functional Transfers Lying to Sitting/Side of Bed(Q: 6 Sit to Stand (QC): 6 Chair/Tll-ce-Yabos Xfer(QC): 6 Gait Mode of Locomotion: Walk Anticipated Mode of Locomotion: Walk Walk 10 feet (QC): 6 Walk 50 ft with 2 Turns(QC): 6 Walk 150 ft (QC): 6 Distance: 400' Gait Assistive Device: FWW Comments/Gait Description safe and functional with no deviation Balance Sitting Static: Normal Sitting Dynamic: Normal Standing Static: Normal Standing Dynamic: Normal Assessment/Needs Patient is currently at independent OF with all gross motor skills and does not require skilled PT intervention at this time. Rehab Potential: Fair PT Plan Treatment/Plan Treatment Plan: Discontinue PT, goals met Treatment Duration: March 21, 2023 Frequency: 1 time per week Estimated Hrs Per Day: .25 hour per day Patient and/or Family Agrees t: Yes Time Time In: 935 Time Out: 944 DATE: March 21, 2023 Total Billed Treatment Time: 9 Total Billed Treatment 1 visit EVMod 9 min HANH CRANE PT March 21, 2023 10:26
[2023-03-21] MEDS ORDERED: CEFD300C3 PO (10:44)
--- NOTE | 2023-03-21 10:45 | Discharge Summary ---
Discharge Summary Hospital Course Was the Problem List Reviewed?: Yes Problems/Dx: (1) Bronchitis (2) Severe sepsis (3) Parkinson disease Status: Chronic (4) Depression Status: Chronic (5) Renal failure (ARF), acute on chronic Hospital Course Date of Admission: Mar 18, 2023 at 10:14 Admission Diagnosis : Family Physician/Provider: Ulysses/[facility] Date of Discharge: 03/21/23 Discharge Diagnosis: [ ] Hospital Course: Standard course after he was admitted for sepsis presumed PNA with high fever and hypoxia. Labs returned back to baseline. Home meds restarted and patient felt well enough to DC to [place]. Labs and Pending Lab Test: Laboratory Tests 03/20/23 11:07: Glucometer 205H 03/20/23 15:51: Glucometer 145H 03/20/23 20:51: Glucometer 153H 03/21/23 05:00: White Blood Count 9.2, Red Blood Count 3.94L, Hemoglobin 11.3L, Hematocrit 34L, Mean Corpuscular Volume 87, Mean Corpuscular Hemoglobin 29, Mean Corpuscular Hemoglobin Concent 33, Red Cell Distribution Width 14.5, Platelet Count 239, Mean Platelet Volume 11.5, Immature Granulocyte % (Auto) 1, Neutrophils (%) (Auto) 52, Lymphocytes (%) (Auto) 28, Monocytes (%) (Auto) 13H, Eosinophils (%) (Auto) 6, Basophils (%) (Auto) 1, Neutrophils # (Auto) 4.8, Lymphocytes # (Auto) 2.6, Monocytes # (Auto) 1.2H, Eosinophils # (Auto) 0.6H, Basophils # (Auto) 0.1, Immature Granulocyte # (Auto) 0.1, Sodium Level 136, Potassium Level 4.3, Chlor abe Level 105, Carbon Dioxide Level 22, Anion Gap 9, Blood Urea Nitrogen 17, Creatinine 0.63, Estimat Glomerular Filtration Rate 104, BUN/Creatinine Ratio 27, Glucose Level 132H, Calcium Level 8.6, Corrected Calcium 9.0, Magnesium Level 1.5L, Total Bilirubin 0.3, Aspartate Amino Transf (AST/SGOT) 10, Alanine Aminotransferase (ALT/SGPT) 15, Alkaline Phosphatase 72, Total Protein 6.4, Albumin 3.5 03/21/23 05:24: Glucometer 131H Microbiology 03/18/23 MRSA Screen - Final, Complete MRSA not isolated 03/18/23 Urine Culture - Final, Complete NO GROWTH 03/18/23 Blood Culture - Preliminary, Resulted No growth Home Meds Active Cefdinir 300 Mg Capsule 300 Mg PO BID Reported Carvedilol 6.25 Mg Tablet 12.5 Mg PO BID TAKES 2 (6.25MG) TABS Olanzapine 5 Mg Tablet 5 Mg PO Q8H PRN MDD 15MG Olanzapine 2.5 Mg Tablet 2.5 Mg PO BID Olanzapine 10 Mg Vial 5 Mg IM Q8H PRN MDD 13MG M-Qpgdhu-z-Cysteine (Acetylcysteine) 600 Mg Capsule 600 Mg PO HS Metformin HCl 850 Mg Tablet 850 Mg PO BID NOTIFY PHYSICIAN FOR BS <60 OR >400 Lisinopril 40 Mg Tablet 40 Mg PO DAILY HOLD FOR SBP <110 OR HR <60 Imodium A-D (Loperamide HCl) 2 Mg Tablet 2-4 Mg PO UD PRN MDD 8MG TAKES 2 TABS WITH FIRST INITIAL LOOSE STOOL AND 1 ADDITIONAL TAB WITH EACH LOOSE STOOL THEREAFTER Hydrocodone-Acetamin 5-325 mg (Hydrocodone/Acetaminophen) 5 Mg-325 Mg Tablet 1 Ea PO Q6H Gabapentin 600 Mg Tablet 600 Mg PO QID Furosemide 40 Mg Tablet 40 Mg PO DAILY Diclofenac Sodium 1 % Gel..gram. 1 Applic TOP BID APPLY TO LOWER BACK AND NECK Divalproex Sodium 250 Mg Tablet.dr 250 Mg PO DAILY Divalproex Sodium 500 Mg Tablet.dr 500 Mg PO HS Amlodipine Besylate 10 Mg Tablet 10 Mg PO DAILY HOLD FOR SBP<100 OR HR<60 Tylenol Extra Strength (Acetaminophen) 500 Mg Tablet 1,000 Mg PO Q8H PRN Carbidopa-Levodopa 10-100 Tab (Carbidopa/Levodopa) 10 Mg-100 Mg Tablet 1 Each PO TID Aspirin EC (Aspirin) 81 Mg Tablet.dr 81 Mg PO DAILY Atorvastatin Calcium 80 Mg Tablet 80 Mg PO HS Duloxetine HCl 60 Mg Capsule.dr 60 Mg PO BID Baclofen 10 Mg Tablet 15 Mg PO TID TAKES 1 & (10MG) TABS Assessment/Pt Instructions NH rounds Discharge Planning: <30 minutes discharge planning Discharge Physical Examination Vital Signs Vital Signs Date Time Temp Pulse Resp B/P (MAP) Pulse Ox O2 Delivery O2 Flow Rate FiO2 03/21/23 08:00 Room Air 03/21/23 07:15 36.1 52 18 154/68 (96) 97 03/18/23 18:00 1.00 General Appearance: No Apparent Distress, WD/WN, Chronically ill Respiratory: Lungs Clear, Normal Breath Sounds Cardiovascular: Regular Rate, Rhythm Allergies: Coded Allergies: NKANo Known Allergies (Verified Allergy, Unknown, 07/16/22) Discharge Summary Date of Admission Mar 18, 2023 at 10:14 Date of Discharge Discharge Date: March 21, 2023 Admission Diagnosis Assessment: Severe sepsis of uncertain course presumed PNA DM HTN COPD Smoker HLP [place] [facility] Plan: IVF Abx ICU Discharge Diagnosis Assessment: Severe sepsis of uncertain course presumed PNA DM HTN COPD Smoker HLP [place] Plan: IVFHL Abx DC tomorrow PORSCHE ORTIZ DO March 21, 2023 10:45
--- NOTE | 2023-03-21 11:09 | Occupational Therapy Eval ---
OT Evaluation-General/PLF Medical Diagnosis Admission Date Mar 18, 2023 at 10:14 Medical Diagnosis: sepsis Onset Date: Mar 18, 2023 Therapy Diagnosis Therapy Diagnosis: weakness Height/Weight Height (Feet): 5 Height (Inches): 6.00 Weight (Pounds): 157 Weight (Ounces): 5.0 Precautions Precautions/Isolations: Fall Prevention, Standard Precautions Weight Bear Status Weight Bearing Restriction: Full Weight Bearing Referral Physician: Leodan Referral Reason: Evaluation/Treatment Medical History Pertinent Medical History: COPD, DM, HTN, Parkinson's, Smoking Current History Lives at [facility]: Assisted Living ADL-Prior Level of Function SCALE: Activities may be completed with or without assistive devices. 1-Bhmwhrurqf-qqqklmn completes the activity by him/herself with no assistance fr om a helper. 5-Set-up or Clean-up Assistance-helper sets up or cleans up; patient completes activity. [place] assists only prior to or following the activity. 4-Supervision or Touching Assistance-helper provides verbal cues and/or touching/steadying and/or contact guard assistance as patient completes activity. Assistance may be provided throughout the activity or intermittently. 3-Partial/Moderate Assistance-helper does LESS THAN HALF the effort. [place] lifts, holds or supports trunk or limbs, but provides less than half the effort. 2-Substantial/Maximal Assistance-helper does MORE THAN HALF the effort. [place] lifts or holds trunk or limbs and provides more than half the effort. 6-Ziuziahst-vpieou does ALL the effort. Patient does none of the effort to complete the activity. Or, the assistance of 2 or more helpers is required for the patient to complete the activity. If activity was not attempted, code reason: 7-Patient Refused. 9-Not Applicable-not attempted and the patient did not perform the activity before the current illness, exacerbation or injury. 10-Not Attempted due to Environmental Limitations-(lack of equipment, weather restraints, etc.). 88-Not Attempted due to Medical Conditions or Safety Concerns. Self Care: Needed Some Help Functional Cognition: Needed Some Help OT Current Status Subjective Up ambulating in halls, agrees to OT evaluation Mental Status/Objective Patient Orientation: Person, Place, Situation Current Upper Extremity ROM BUE ROM WFLS Upper Extremity Coordination BUE FMC/GMC WFLS Upper Extremity Strength -4/5 grossly BUE Education OT Patient Education: Progress toward Goal/Update tx plan, Purpose of tx/functional activities, Reviewed precautions, Rehab process, Safety issues Teaching Recipient: Patient Teaching Methods: Demonstration, Discussion Response to Teaching: Verbalize Understanding OT Bottom Liquor Attendant Goals Bottom Liquor Attendant Goals 1=Demonstrate adherence to instructed precautions during ADL tasks. 2=Patient will verbalize/demonstrate understanding of assistive devices/modifications for ADL. 3=Patient will improve strength/tolerance for activity to enable patient to perform ADL's. OT Education/Plan Discharge Recommendations Plan/Recommendations: Discontinue OT Therapy Discharge Recommendati: Other, See Comments (return to [facility] Patint At baseline/ PLOF) Treatment Plan/Plan of Care Patient would benefit from OT for education, treatment and training to promote independence in ADL's, mobility, safety and/or upper extremity function for ADL's. Plan of Care: OTHER (eval only) Treatment Duration: March 21, 2023 Frequency: 1 time per week Estimated Hrs Per Day: .25 hour per day Rehab Potential: Good Time Start Time: 09:40 Stop Time: 09:55 DATE: March 21, 2023 Total Time Billed (hr/min): 15 Billed Treatment Time EVL, 15 min DENNIS CARROLL OT March 21, 2023 11:09
[2023-03-21 11:11] VITALS: BP 172/69
[2023-03-21] MEDS: ENOXAPARIN 40 MG/0.4 ML (LOVENOX) SYR SC SCH (11:30)
[2023-03-21 13:14] VITALS: BP 172/69
== END 2023-03-21 13:43 | disposition home or self-care (01) | DRG 871 ==
LOC: EDUNIT# 06:18 → ER 06:20 → ICU 10:14 → 4TH 03-19 11:53
PROVIDERS: ADMIT Internal Medicine; ATTEND Internal Medicine
DX: A41.9 Sepsis, unspecified organism (principal); J18.9 Pneumonia, unspecified organism; N17.9 Acute kidney failure, unspecified; J44.0 Chronic obstructive pulmonary disease with (acute) lower respiratory infection; G20 Parkinson's disease; F02.80 Dementia in other diseases classified elsewhere, unspecified severity, without behavioral disturbance, psychotic disturbance, mood disturbance, and anxiety; E11.40 Type 2 diabetes mellitus with diabetic neuropathy, unspecified; F17.210 Nicotine dependence, cigarettes, uncomplicated; F12.10 Cannabis abuse, uncomplicated; I25.10 Atherosclerotic heart disease of native coronary artery without angina pectoris; R65.20 Severe sepsis without septic shock; E78.5 Hyperlipidemia, unspecified; J40 Bronchitis, not specified as acute or chronic; F32.A Depression, unspecified; I12.9 Hypertensive chronic kidney disease with stage 1 through stage 4 chronic kidney disease, or unspecified chronic kidney disease; N18.9 Chronic kidney disease, unspecified; R09.02 Hypoxemia; E11.22 Type 2 diabetes mellitus with diabetic chronic kidney disease; F41.9 Anxiety disorder, unspecified; K58.0 Irritable bowel syndrome with diarrhea; Z20.822 Contact with and (suspected) exposure to COVID-19; Z85.47 Personal history of malignant neoplasm of testis; Z79.82 Long term (current) use of aspirin; Z79.84 Long term (current) use of oral hypoglycemic drugs; Z79.899 Other long term (current) drug therapy
CPT/HCPCS: 36415; 36600; 51702; 71045; 80048; 80053; 80164; 80202; 80306; 81000; 82550; 82805; 82947; 83605; 83735; 84100; 85007; 85025; 85027; 85610; 85730; 87040; 87081; 87088; 87636; 96361; 96365